=== PATIENT | male | born 1945 | race Two or more races ===

== ENCOUNTER 2018-05-05 18:42 | Emergency (ER) | payer OTHER ==
[~2018-05-05] VITALS: Ht 170.2 cm; Wt 89.8 kg
--- OUTSIDE RECORDS SUMMARY | 2018-05-05 18:46 | XMS REPORT | Continuity of Care Document ---
Author Author [facility] Interface Address Unknown Phone Unavailable Problems Problem Status Onset Date Classification Date Reported Comments Source GENERALIZED WEAKNESS Active 10/04/2017 [facility] GENERAL PAIN Active 10/04/2017 [facility] Angiodysplasia of colon with hemorrhage 07/30/2017 10/29/2017 [facility] Nonrheumatic aortic stenosis 07/29/2017 10/13/2017 [facility] GI BLEED Active 07/17/2017 [facility] ASD, Q21.1 Active 06/11/2017 [facility] CCL/LHC W/ POSS/DX: SEVERE , CLAUDICAT Active 06/10/2017 [facility] SEVERE , CLAUDICATION, PRE OP---1 Active 06/10/2017 [facility] UNK Active 04/21/2015 [facility] Hemorrhage of anus and rectum 10/29/2017 [facility] Supraventricular tachycardia 10/29/2017 [facility] Type 2 diabetes mellitus without complications 10/29/2017 [facility] Acute posthemorrhagic anemia 10/29/2017 [facility] Essential hypertension 10/29/2017 [facility] Atherosclerotic heart disease of [place] coronary artery without angina pectoris 10/29/2017 [facility] Diverticulosis of intestine, part unspecified, without perforation or abscess without bleeding 10/29/2017 [facility] Benign neoplasm of cecum 10/29/2017 [facility] Residual hemorrhoidal skin tags 10/29/2017 [facility] Presence of cardiac pacemaker 10/29/2017 [facility] Hyperlipidemia, unspecified 10/29/2017 [facility] Presence of prosthetic heart valve 10/29/2017 [facility] Aortic valve disease Resolved Problem 10/29/2017 [facility] Aortic stenosis Active Problem 10/29/2017 [facility] Coronary artery disease Resolved Problem 10/29/2017 [facility] Diabetes Resolved Problem 10/29/2017 [facility] Hypertension, essential Active Problem 10/29/2017 [facility] Hypertension Resolved Problem 10/29/2017 [facility] DM , type 2(<span ID="[id number]</span>) Active Problem 10/29/2017 [facility] Weakness 10/13/2017 [facility] Encounter for immunization 10/13/2017 [facility] Acute respiratory failure with hypoxia 10/13/2017 [facility] Acute kidney failure, unspecified 10/13/2017 [facility] Unspecified atrial flutter 10/13/2017 [facility] Type 2 diabetes mellitus with hyperglycemia 10/13/2017 [facility] Fluid overload, unspecified 10/13/2017 [facility] Thrombocytopenia, unspecified 10/13/2017 [facility] Atrioventricular block, second degree 10/13/2017 [facility] Ileus, unspecified 10/13/2017 [facility] Other postprocedural complications and disorders of digestive system 10/13/2017 [facility] use of oral hypoglycemic drugs 10/13/2017 [facility] Atherosclerotic heart disease of [place] coronary artery with other forms of angina pectoris 10/13/2017 [facility] Coronary atherosclerosis due to calcified coronary lesion 10/13/2017 [facility] Bradycardia, unspecified 10/13/2017 [facility] Abdominal distension 10/13/2017 [facility] NONRHEUMATIC AORTIC VALVE DISORDER, UNSP Active [facility] HEMORRHAGE OF ANUS AND RECTUM Active [facility] WEAKNESS Active [facility] Medications Medication Details Route Status Patient Instructions Ordering Provider Order Date Source cefTRIAXone 2 g injection 2 gm, IV, Q24H, X 6 week, # 40 box, 0 Refill(s) Active 10/10/2017 [facility] Aspirin 81 MG Enteric Coated Tablet 81 mg=1 tab, PO, Daily, # 90 tab, 3 Refill(s) Active 10/10/2017 [facility] atorvastatin 80 mg oral tablet 80 mg=1 tab, PO, Bedtime, # 90 tab, 3 Refill(s) Active 10/10/2017 [facility] clopidogrel 75 mg oral tablet 75 mg=1 tab, PO, Daily, # 90 tab, 3 Refill(s) Active 10/10/2017 [facility] Docusate Sodium 50 MG / sennosides, ALF 8.6 MG Oral Tablet 1 tab, PO, Daily, X 14 day, # 14 tab, 10 Refill(s) Active 10/10/2017 [facility] ferrous sulfate 325 mg oral enteric coated tablet 325 mg=1 tab, PO, Daily, # 90 tab, 2 Refill(s) Active 10/10/2017 [facility] losartan 50 mg oral tablet 100 mg=2 tab, PO, Daily, # 180 tab, 2 Refill(s) Active 10/10/2017 [facility] dofetilide 500 mcg oral capsule 500 microgram=1 cap, PO, Q12H, # 120 cap, 0 Refill(s) Active 10/10/2017 [facility] Saline Flush 0.9% 10 mL, Route: IVP, Drug Form: INJ, Dosing Weight 87.727, kg, Q8H, Start date: 10/10/17 16:00:00 CDT, Duration: 30 day, Stop date: 11/09/17 8:00:00 CDTNotes: (Same as: BD Posiflush) Inactive 10/10/2017 [facility] Lidocaine Hydrochloride 10 MG/ML Injectable Solution 50 mg, 5 mL, Route: INTRADERM, Drug Form: INJ, Dosing Weight 87.727, kg, ONCALL, Start date: 10/10/17 13:00:00 CDT, Duration: 30 day, Stop date: 11/09/17 12:59:00 CDTNotes: (Same as: Xylocaine) Inactive 10/10/2017 [facility] Saline Flush 0.9% 10 mL, Route: IVP, Drug Form: INJ, Dosing Weight 87.727, kg, PRN, PRN Line Flush, Start date: 10/10/17 12:37:00 CDT, Duration: 30 day, Stop date: 11/09/17 12:36:00 CDTNotes: (Same as: BD Posiflush) Inactive 10/10/2017 [facility] Potassium Chloride 40 mEq, 2 tab, Route: PO, Drug form: ERTAB, BID, Dosing Weight 87.727, kg, Priority: STAT, Start date: 10/10/17 10:59:00 CDT, Duration: 1 day, Stop date: 10/11/17 9:00:00 CDTNotes: (Same as: K-Dur 20) "Do Not Crush" For patients unable to swallow tablet, dissolve in one half glass of water. Allow about 2 minutes for the tablets to disintegrate. Stir before giving to prepare slurry and administer. Please exclude Patients with feeding tube less than 14 Hungarian (Dobhoff, J-tube etc) and pediatric and patients. With food and full glass of water Inactive 10/10/2017 [facility] Calcium Gluconate 3 gm, 30 mL, Route: IVPB, PRN, Dosing Weight 87.727, kg, PRN Abnormal Lab Result, For NON-ICU Patients Only., Start date: 10/10/17 9:15:00 CDT, Duration: 30 day, Stop date: 11/09/17 9:14:00 CDTNotes: WASTE: F/P - Sink; E - Municipal Trash Bin Inactive 10/10/2017 [facility] Magnesium Oxide 800 mg, 2 tab, Route: PO, Drug form: TAB, PRN, Dosing Weight 87.727, kg, PRN Abnormal Lab Result, For NON-ICU Patients Only., Start date: 10/10/17 9:15:00 CDT, Duration: 30 day, Stop date: 11/09/17 9 :14:00 CDTNotes: (Same as: Mag-Ox 400) Magnesium oxide [id number] elemental magnesium Dose=____mg magnesium oxide (___mg elemental magnesium) Inactive 10/10/2017 [facility] Magnesium Sulfate 1 gm, 100 mL, Route: IVPB, Drug form: INJ, PRN, Dosing Weight 87.727, kg, PRN Abnormal Lab Result, For NON-ICU Patients Only., Start date: 10/10/17 9:15:00 CDT, Duration: 30 day, Stop date: 11/09/17 9:14:00 CDTNotes: WASTE: F/P - Sink; E - Municipal Trash Bin Inactive 10/10/2017 [facility] sodium phosphate 30 mmol, 10 mL, Route: IVPB, PRN, Dosing Weight 87.727, kg, PRN Abnormal Lab Result, For NON-ICU Patients Only., Start date: 10/10/17 9:15:00 CDT, Duration: 30 day, Stop date: 11/09/17 9:14:00 CDT Inactive 10/10/2017 [facility] potassium phosphate-sodium phosphate 250 mg-280 mg-160 mg oral powder for reconstitution 2 pkt, Route: PO, Drug Form: PDR/REC, Dosing Weight 87.727, kg, PRN, PRN Abnormal Lab Result, For NON-ICU Patients Only, Start date: 10/10/17 9:15:00 CDT, Duration: 30 day, Stop date: 11/09/17 9:14:00 CDTNotes: (Same as: Phos-NaK) Each 1.5 gm pkt has 250mg phosphorous. Mix w/2.5oz water and stir. Inactive 10/10/2017 [facility] potassium phosphate 15 mmol, 5 mL, Route: IVPB, PRN, Dosing Weight 87.727, kg, PRN Abnormal Lab Result, For NON-ICU Patients Only., Start date: 10/10/17 9:15:00 CDT, Duration: 30 day, Stop date: 11/09/17 9:14:00 CDTNotes: (Same as: K Phosphate.) 1 mMol phoshate has 1.47 mEq potassium Infuse over 4 hours Inactive 10/10/2017 [facility] Potassium Chloride 10 mEq, 50 mL, Route: IVPB, Drug form: INJ, PRN, Dosing Weight 87.727, kg, PRN Abnormal Lab Result, For NON-ICU Patients Only, Start date: 10/10/17 9:15:00 CDT, Duration: 30 day, Stop date: 11/09/17 9:14:00 CDTNotes: (Same as: KCL) Infuse over 2 hours. Inactive 10/10/2017 [facility] Hydrochlorothiazide 25 MG / Losartan Potassium 100 MG Oral Tablet 1 tab, Route: PO, Drug Form: TAB, Dosing Weight 87.727, kg, Daily, Start date: 10/10/17 9:00:00 CDT, Duration: 30 day, Stop date: 11/08/17 9:00:00 CDT Inactive 10/10/2017 [facility] Cozaar 100 mg, 2 tab, Route: PO, Drug form: TAB, Daily, Start date: 10/10/17 9:00:00 CDT, Duration: 30 day, Stop date: 11/08/17 9:00:00 CDTNotes: (Same as: Cozaar) Inactive 10/10/2017 [facility] hydrochlorothiazide 25 mg oral tablet 25 mg, 1 tab, Route: PO, Drug form: TAB, Daily, Start date: 10/10/17 9:00:00 CDT, Duration: 30 day, Stop date: 11/08/17 9:00:00 CDTNotes: (Same as: Hydrodiuril) With food. Inactive 10/10/2017 [facility] Elemental Iron 25 mg, Route: PO, Drug form: TAB, Daily, Dosing Weight 87.727, kg, Start date: 10/10/17 9:00:00 CDT, Duration: 30 day, Stop date: 11/08/17 9:00:00 CDT No Longer Active 10/10/2017 [facility] NIFEdipine 30 mg oral tablet, extended release 30 mg, 1 tab, Route: PO, Drug form: ERTAB, Daily, Dosing Weight 87.727, kg, Start date: 10/10/17 9:00:00 CDT, Duration: 30 day, Stop date: 11/08/17 9:00:00 CDTNotes: (Same as: Adalat CC, Procardia XL) Give on empty stomach. Take 1 hour before or 2 hours after meal; "Avoid grapefruit and grapefruit juice". Do not crush Inactive 10/10/2017 [facility] ferrous sulfate 325 mg, 1 tab, Route: PO, Drug form: ECTAB, Daily, Dosing Weight 87.727, kg, Start date: 10/10/17 9:00:00 CDT, Duration: 30 day, Stop date: 11/08/17 9:00:00 CDTNotes: Give with food. "Do Not Crush" Inactive 10/10/2017 [facility] Hydralazine 50 mg, 1 tab, Route: PO, Drug form: TAB, Q8H, Dosing Weight 87.727, kg, Start date: 10/10/17 8:00:00 CDT, Duration: 30 day, Stop date: 11/09/17 0:00:00 CDTNotes: (Same as: Apresoline) May interfere w/enteral feedings Take With Food Inactive 10/10/2017 [facility] Hydralazine 20 mg, 1 mL, Route: IVP, Drug form: INJ, Q4H, Dosing Weight 87.727, kg, PRN See Nurse's Notes, Start date: 10/10/17 7:55:00 CDT, Duration: 30 day, Stop date: 11/09/17 7:54:00 CDT, SBP >160Notes: (Same as: Apresoline) Push over 5 minutes Inactive 10/10/2017 [facility] NIFEdipine 30 mg oral tablet, extended release 30 mg, 1 tab, Route: PO, Drug form: ERTAB, ONCE, Dosing Weight 87.727, kg, Start date: 10/10/17 7:53:00 CDT, Stop date: 10/10/17 7:53:00 CDTNotes: (Same as: Adalat CC, Procardia XL) Give on empty stomach. Take 1 hour before or 2 hours after meal; "Avoid grapefruit and grapefruit juice". Do not crush Inactive 10/10/2017 [facility] NIFEdipine 60 mg oral tablet, extended release 60 mg, 1 tab, Route: PO, Drug form: ERTAB, ONCE, Dosing Weight 87.727, kg, Priority: STAT, Start date: 10/10/17 6:15:00 CDT, Stop date: 10/10/17 6:15:00 CDT, ..Notes: (Same as: Adalat CC, Procardia XL) Give on empty stomach. Take 1 hour before or 2 hours after meal; "Avoid grapefruit and grapefruit juice". Do not crush Inactive 10/10/2017 [facility] Hydralazine Hydrochloride 25 MG Oral Tablet 25 mg, 1 tab, Route: PO, Drug form: TAB, ONCE, Dosing Weight 87.727, kg, Start date: 10/10/17 5:08:00 CDT, Stop date: 10/10/17 5:08:00 CDTNotes: (Same as: Apresoline) May interfere w/enteral feedings Take With Food. Inactive 10/10/2017 [facility] Saline Flush 0.9% 10 mL, Route: IVP, Drug Form: INJ, Dosing Weight 87.727, kg, Q8H, Start date: 10/10/17 0:00:00 CDT, Duration: 30 day, Stop date: 11/08/17 16:00:00 CDTNotes: (Same as: BD Posiflush) Inactive 10/10/2017 [facility] Hydralazine 25 mg, 1 tab, Route: PO, Drug form: TAB, Q6H, Dosing Weight 87.727, kg, Priority: NOW, Start date: 10/09/17 18:19:00 CDT, Duration: 30 day, Stop date: 11/08/17 18:00:00 CDTNotes: (Same as: Apresoline) May interfere w/enteral feedings Take With Food. No Longer Active 10/09/2017 [facility] Lidocaine Hydrochloride 10 MG/ML Injectable Solution 50 mg, 5 mL, Route: INTRADERM, Drug Form: INJ, Dosing Weight 87.727, kg, ONCALL, Start date: 10/09/17 17:00:00 CDT, Duration: 30 day, Stop date: 11/08/17 16:59:00 CDTNotes: (Same as: Xylocaine) No Longer Active 10/09/2017 [facility] Saline Flush 0.9% 10 mL, Route: IVP, Drug Form: INJ, Dosing Weight 87.727, kg, PRN, PRN Line Flush, Start date: 10/09/17 16:32:00 CDT, Duration: 30 day, Stop date: 11/08/17 16:31:00 CDTNotes: (Same as: BD Posiflush) No Longer Active 10/09/2017 [facility] Docusate Sodium 50 MG / sennosides, ALF 8.6 MG Oral Tablet 1 tab, Route: PO, Drug Form: TAB, Dosing Weight 87.727, kg, Daily, Start date: 10/09/17 14:30:00 CDT, Duration: 30 day, Stop date: 11/08/17 9:00:00 CDTNotes: (Same as Senokot-S) Equiv. to Iman-Colace. No Longer Active 10/09/2017 [facility] Amlodipine 10 mg, 1 tab, Route: PO, Drug form: TAB, Daily, Dosing Weight 87.727, kg, Start date: 10/09/17 9:00:00 CDT, Duration: 30 day, Stop date: 11/07/17 9:00:00 CDTNotes: (Same as: Norvasc) No Longer Active 10/09/2017 [facility] Ceftriaxone 2 gm, Route: IVPB, [id number], Dosing Weight 87.727, kg, Priority: STAT, Start date: 10/09/17 8:55:00 CDT, Duration: 7 day, Stop date: 10/15/17 8:55:00 CDT, ABX Indication: BacteremiaNotes: (Same As: Rocep hin). Use with 100 mL NS and infuse over 30 min MEDICATION WASTE Product Size: 2000 mg Product Wasted: __0_ mg No Longer Active 10/09/2017 [facility] Vancomycin 1.75 gm, Route: IVPB, [id number], Dosing Weight 87.727, kg, Start date: 10/08/17 18:00:00 CDT, Duration: 30 day, Stop date: 11/07/17 6:00:00 CDT, ABX Indication: Endocarditis/Endovascular InfectionNotes: TIME CRITICAL MEDICATION (Same As: Vancocin) Infusion rate 2001 mg: infuse over 2.5 hours For adult patients only: Round to nearest 250 mg per Medical Staff approval MEDICATION WASTE Product Size: 1000 mg Product Wasted: _250__ mg No Longer Active 10/08/2017 [facility] Lovenox 40 mg, 0.4 mL, Route: SUB-Q, Drug form: INJ, [id number], Dosing Weight 87.727, kg, Start date: 10/08/17 16:00:00 CDT, Stop date: 11/06/17 21:00:00 CDTNotes: (Same as: Lovenox) No Longer Active 10/08/2017 [facility] Amlodipine 5 mg, 1 tab, Route: PO, Drug form: TAB, ONCE, Dosing Weight 87.727, kg, Start date: 10/08/17 14:37:00 CDT, Stop date: 10/08/17 14:37:00 CDTNotes: (Same as: Norvasc) Inactive 10/08/2017 [facility] Venofer 200 mg, Route: IVPB, Drug form: INJ, Daily, Dosing Weight 87.727, kg, Start date: 10/08/17 9:00:00 CDT, Duration: 5 doses or times, Stop date: 10/12/17 9:00:00 CDT No Longer Active 10/08/2017 [facility] Amlodipine 5 mg, 1 tab, Route: PO, Drug form: TAB, Daily, Dosing Weight 87.727, kg, Priority: STAT, Start date: 10/07/17 14:01:00 CDT, Duration: 30 day, Stop date: 11/06/17 9:00:00 CDTNotes: (Same as: Norvasc) No Longer Active 10/07/2017 [facility] Sodium ferric gluconate complex 125 mg, 10 mL, Route: IVPB, Q24H, Dosing Weight 87.727, kg, Start date: 10/07/17 12:00:00 CDT, Duration: 8 doses or times, Stop date: 10/14/17 12:00:00 CDTNotes: (sodium ferric gluconate complex (elemental iron) 62.5 mg/5 ml INJ) "Limited stability. Use immediately after admixture" (Same as: Ferrlecit) MEDICATION WASTE Product Size: 62.5 mg Product Wasted: 0___ mg No Longer Active 10/07/2017 [facility] potassium chloride 20 mEq oral tablet, extended release 40 mEq, 2 tab, Route: PO, Drug form: ERTAB, BID, Dosing Weight 87.727, kg, Start date: 10/07/17 10:30:00 CDT, Duration: 2 doses or times, Stop date: 10/07/17 17:00:00 CDTNotes: (Same as: K-Dur 20) "Do Not Crush" For patients unable to swallow tablet, dissolve in one half glass of water. Allow about 2 minutes for the tablets to disintegrate. Stir before giving to prepare slurry and administer. Please exclude Patients with feeding tube less than 14 Hungarian (Dobhoff, J-tube etc) and pediatric and patients. With food and full glass of water Inactive 10/07/2017 [facility] Hydrochlorothiazide 25 mg, Route: PO, Drug form: TAB, Daily, Dosing Weight 87.727, kg, Start date: 10/07/17 9:57:00 CDT, Duration: 30 day, Stop date: 11/06/17 9:00:00 CDT Inactive 10/07/2017 [facility] vancomycin 1.25 gm, 250 mL, Route: IVPB, Drug form: INJ, [id number], Start date: 10/07/17 8:30:00 CDT, Stop date: 11/05/17 20:30:00 CDT, ABX Indication: Endocarditis/Endovascular InfectionNotes: TIME CRITICAL MEDICAT ION Same as: Vancocin-NS (premixed) Infusion rate 2001 mg: infuse over 2.5 hours No Longer Active 10/07/2017 [facility] Gentamicin 80 mg, 2 mL, Route: IVPB, ONCE, Dosing Weight 87.727, kg, Start date: 10/06/17 22:50:00 CDT, Stop date: 10/06/17 22:50:00 CDTNotes: TIME CRITICAL MEDICATION (Same as Garamycin) For adult patients only : Round to nearest 10 mg per Medical Staff approval No Longer Active 10/07/2017 [facility] cefepime 1 gm, Route: IVPB, [id number], Dosing Weight 87.727, kg, (CrCl >/=50 ml/min), Start date: 10/06/17 20:23:00 CDT, Duration: 7 day, Stop date: 10/13/17 12:23:00 CDT, ABX Indication: Endocarditis/Endovascular InfectionNotes: (Same As: Maxipime) MEDICATION WASTE Product Size: 1000 mg Product Wasted: ___ mg No Longer Active 10/07/2017 [facility] Vancomycin 1.75 gm, Route: IV, ONCE, Dosing Weight 87.727, kg, Start date: 10/06/17 20:13:00 CDT, Stop date: 10/06/17 20:13:00 CDT, Pediatric Dosing, ABX Indication: Endocarditis/Endovascular InfectionNotes: TIME CRITICAL MEDICATION (Same As: Vancocin) Infusion rate 2001 mg: infuse over 2.5 hours For adult patients only: Round to nearest 250 mg per Medical Staff approval MEDICATION WASTE Product Size: 1000 mg Product Wasted: ___ mg Inactive 10/07/2017 [facility] atorvastatin 80 mg, 1 tab, Route: PO, Drug form: TAB, Bedtime, Dosing Weight 87.273, kg, Start date: 10/05/17 21:00:00 CDT, Duration: 30 day, Stop date: 11/03/17 21:00:00 CDTNotes: Same as Lipitor No Longer Active 10/06/2017 [facility] cetirizine hydrochloride 10 MG Oral Tablet [Zyrtec] 10 mg=1 tab, PO, Daily, 0 Refill(s) Active 10/05/2017 [facility] pantoprazole 40 mg oral enteric coated tablet 40 mg=1 tab, PO, Daily, 0 Refill(s) Active 10/05/2017 [facility] Metformin hydrochloride 500 MG Oral Tablet 1,000 mg=2 tab, PO, BID, 0 Refill(s) Active 10/05/2017 [facility] Hydrochlorothiazide 12.5 MG / Losartan Potassium 100 MG Oral Tablet 1 tab, PO, Daily, 0 Refill(s) No Longer Active 10/05/2017 [facility] Fish Oil 1200 mg oral capsule 1,200 mg=1 cap, PO, TID, 0 Refill(s) Active 10/05/2017 [facility] Vitamin D3 2000 intl units oral capsule 2,000 IntlUnit=1 cap, PO, Daily, # 100 cap, 3 Refill(s) Active 10/05/2017 [facility] Advair Diskus 250 mcg-50 mcg inhalation powder 1 puff, INHALATION, BID, 0 Refill(s) Active 10/05/2017 [facility] montelukast 10 MG Oral Tablet [Singulair] 10 mg=1 tab, PO, Daily, 0 Refill(s) Active 10/05/2017 [facility] amLODIPine 5 mg oral tablet 5 mg=1 tab, PO, Daily, 0 Refill(s) No Longer Active 10/05/2017 [facility] tramadol hydrochloride 50 MG Oral Tablet 100 mg, 2 tab, Route: PO, Drug form: TAB, Q6H, Dosing Weight 87.727, kg, PRN Pain Score 4-6, Start date: 10/05/17 9:03:00 CDT, Duration: 30 day, Stop date: 11/04/17 9:02:00 CDTNotes: Not to exceed 400mg/day. (Same As: Ultram) No Longer Active 10/05/2017 [facility] pneumococcal capsular polysaccharide type 1 vaccine / pneumococcal capsular polysaccharide type 10A vaccine / pneumococcal capsular polysaccharide type 11A vaccine / pneumococcal capsular polysaccharide type 12F vaccine / pneumococcal capsular polysacchar 0.5 mL, Route: IM, Drug Form: INJ, ONCALL, Start date: 10/05/17 9:00:00 CDT, Duration: 1 doses or timesNotes: (Same as: Pneumovax 23) Refrigerate No Longer Active 10/05/2017 [facility] Docusate Sodium 100 MG Oral Capsule 100 mg, 1 cap, Route: PO, Drug form: CAP, BID, Dosing Weight 87.273, kg, Start date: 10/05/17 9:00:00 CDT, Duration: 30 day, Stop date: 11/03/17 17:00:00 CDTNotes: (Same as: Colace) (Do Not Crush) No Longer Active 10/05/2017 [facility] clopidogrel 75 mg, 1 tab, Route: PO, Drug form: TAB, Daily, Dosing Weight 87.273, kg, Start date: 10/05/17 9:00:00 CDT, Duration: 30 day, Stop date: 11/03/17 9:00:00 CDTNotes: (Same As: Plavix) No Longer Active 10/05/2017 [facility] Aspirin 81 MG Enteric Coated Tablet 81 mg, 1 tab, Route: PO, Drug form: ECTAB, Daily, Dosing Weight 87.273, kg, Start date: 10/05/17 9:00:00 CDT, Duration: 30 day, Stop date: 11/03/17 9:00:00 CDTNotes: Do not crush or chew. (Same As: Ecotrin) No Longer Active 10/05/2017 [facility] Losartan 100 mg, 2 tab, Route: PO, Drug form: TAB, Daily, Dosing Weight 87.273, kg, Start date: 10/05/17 9:00:00 CDT, Duration: 30 day, Stop date: 11/03/17 9:00:00 CDTNotes: (Same as: Cozaar) No Longer Active 10/05/2017 [facility] dofetilide 500 microgram, 1 cap, Route: PO, Drug form: CAP, Q12H, Start date: 10/05/17 9:00:00 CDT, Duration: 30 day, Stop date: 11/03/17 21:00:00 CDTNotes: (Same as: Tikosyn) No Longer Active 10/05/2017 [facility] Saline Flush 0.9% 10 ml, Route: IVP, Drug Form: INJ, Dosing Weight 87.273, kg, Q12H, Start date: 10/05/17 9:00:00 CDT, Duration: 30 day, Stop date: 11/03/17 21:00:00 CDTNotes: Same as: BD Posiflush Sterile No Longer Active 10/05/2017 [facility] dofetilide 500 mcg oral capsule dofetilide 500 mcg oral capsule, 500 microgram, Drug form: CAP, Route: PO, Q12H, 10/05/17 9:00:00 CDT, Duration: 30 day, Stop date: 11/03/17 21:00:00 CDT Inactive 10/05/2017 [facility] Acetaminophen 650 mg, Route: PO, ONCE, Dosing Weight 87.273, kg, Start date: 10/05/17 3:59:00 CDT, Stop date: 10/05/17 3:59:00 CDT Inactive 10/05/2017 [facility] Simethicone 80 mg, 1 tab, Route: PO, Drug form: CHEWTAB, Q6H, Dosing Weight 87.273, kg, PRN Gas, Start date: 10/05/17 3:28:00 CDT, Duration: 2 doses or times, Stop date: Limited # of timesNotes: (Same as: [place]o n) No Longer Active 10/05/2017 [facility] Bisacodyl 10 mg, 1 supp, Route: WA, Drug form: SUPP, Daily, Dosing Weight 87.273, kg, PRN Constipation, Start date: 10/05/17 3:28:00 CDT, Duration: 30 day, Stop date: 11/04/17 3:27:00 CDTNotes: (Same As: Dulcolax, Bisco-Lax) No Longer Active 10/05/2017 [facility] Ondansetron 4 mg, 2 mL, Route: IVP, Drug form: INJ, Q8H, Dosing Weight 87.273, kg, PRN Nausea & Vomiting, Start date: 10/05/17 3:28:00 CDT, Duration: 30 day, Stop date: 11/04/17 3:27:00 CDTNotes: (Same as: Zofran) MEDICATION WASTE Product Size: 4 mg Product Wasted: ___ mg No Longer Active 10/05/2017 [facility] Diphenhydramine 25 mg, 1 cap, Route: PO, Drug form: CAP, Q6H, Dosing Weight 87.273, kg, PRN Itching, Start date: 10/05/17 3:28:00 CDT, Duration: 30 day, Stop date: 11/04/17 3:27:00 CDTNotes: (Same as: Benadryl) No Longer Active 10/05/2017 [facility] Acetaminophen 650 mg, 2 tab, Route: PO, Drug form: TAB, Q4H, Dosing Weight 87.273, kg, PRN For Temp > 100.4 F, Start date: 10/05/17 3:28:00 CDT, Duration: 30 day, Stop date: 11/04/17 3:27:00 CDTNotes: Do not exceed 4 gm/day. (Same as: Tylenol) No Longer Active 10/05/2017 [facility] Insulin Lispro 4 unit, 0.04 mL, Route: SUB-Q, Drug form: SOLN, TID-Before Meals, Dosing Weight 87.273, kg, PRN Blood Glucose Results, Start date: 10/05/17 3:28:00 CDT, Duration: 30 day, Stop date: 11/04/17 3:27:00 CDTNotes: (Same as: Humalog ) Roll in palms of hands gently; Do not shake `vigorously. "Single Patient Use Only " WASTE: F/P - Black; E - Municipal Trash Bin Stable for 28 days at room temperature. Expires in days from Date No Longer Active 10/05/2017 [facility] Dextrose 50% Syringe 25 gm, 50 mL, Route: IVP, Drug Form: INJ, Dosing Weight 87.273, kg, PRN, PRN Blood Glucose Results, Start date: 10/05/17 3:28:00 CDT, Duration: 30 day, Stop date: 11/04/17 3:27:00 CDT No Longer Active 10/05/2017 [facility] Glucagon 1 mg, Route: IM, Drug form: PDR/INJ, PRN, Dosing Weight 87.273, kg, PRN Blood Glucose Results, Start date: 10/05/17 3:28:00 CDT, Duration: 30 day, Stop date: 11/04/17 3:27:00 CDT No Longer Active 10/05/2017 [facility] Hydrochlorothiazide 12.5 mg, PO, Daily, 0 Refill(s) Inactive 10/05/2017 [facility] Saline Flush 0.9% 10 ml, Route: IVP, Drug Form: INJ, Dosing Weight 87.273, kg, PRN, PRN Line Flush, Start date: 10/05/17 3:24:00 CDT, Duration: 30 day, Stop date: 11/04/17 3:23:00 CDTNotes: Same as: BD Posiflush Sterile No Longer Active 10/05/2017 [facility] Lactated Ringers IV 1,000 mL 1,000 mL, Rate: 125 ml/hr, Infuse over: 8 hr, Route: IV, Dosing Weight 87.273 kg, Total Volume: 1,000, Start date: 10/05/17 3:24:00 CDT, Duration: 30 day, Stop date: 11/04/17 3:23:00 CDT, 2.05, m2 No Longer Active 10/05/2017 [facility] Acetaminophen 650 mg, 2 tab, Route: PO, Drug form: TAB, ONCE, Dosing Weight 87.273, kg, Priority: STAT, Start date: 10/04/17 19:53:00 CDT, Stop date: 10/04/17 19:53:00 CDTNotes: Do not exceed 4 gm/day. (Same as: Tylenol) Inactive 10/05/2017 [facility] losartan 50 mg oral tablet 100 mg=2 tab, PO, Daily, # 60 tab, 0 Refill(s), Pharmacy: [facility] [id number] No Longer Active 07/23/2017 [facility] clopidogrel 75 mg oral tablet 75 mg=1 tab, PO, Daily, # 30 tab, 0 Refill(s), Pharmacy: [facility] [id number] No Longer Active 07/23/2017 [facility] atorvastatin 80 mg oral tablet 80 mg=1 tab, PO, Bedtime, # 30 tab, 0 Refill(s), Pharmacy: [facility] [id number] No Longer Active 07/23/2017 [facility] dofetilide 500 mcg oral capsule 500 microgram=1 cap, PO, Q12H, # 30 cap, 0 Refill(s), Pharmacy: [facility] [id number] No Longer Active 07/23/2017 [facility] Aspirin 81 MG Enteric Coated Tablet 81 mg=1 tab, PO, Daily, # 32 tab, 0 Refill(s), Pharmacy: [facility] [id number] No Longer Active 07/23/2017 [facility] Insulin Lispro 1 unit, 0.01 mL, Route: SUB-Q, Drug form: SOLN, Bedtime, Dosing Weight 84.545, kg, PRN Blood Glucose Results, Start date: 07/22/17 19:58:00 NETWORK FIELD ENGINEER, Duration: 30 day, Stop date: 08/21/17 19:57:00 CDTNotes: (Same as: Humalog ) Roll in palms of hands gently; Do not shake `vigorously. "Single Patient Use Only " WASTE: F/P - Black; E - Municipal Trash Bin Stable for 28 days at room temperature. Expires in days from Date No Longer Active 07/23/2017 [facility] heparin sodium, porcine 2500 UNT/ML Injectable Solution 5,000 unit, 1 mL, Route: SUB-Q, Drug form: INJ, Q8H, Dosing Weight 84.545, kg, Start date: 07/22/17 16:00:00 NETWORK FIELD ENGINEER, Stop date: 08/21/17 8:00:00 CDTNotes: porcine heparin No Longer Active 07/22/2017 [facility] Plavix 75 mg, 1 tab, Route: PO, Drug form: TAB, Daily, Dosing Weight 84.545, kg, Start date: 07/22/17 9:00:00 NETWORK FIELD ENGINEER, Duration: 30 day, Stop date: 08/20/17 9:00:00 CDTNotes: (Same As: Plavix) No Longer Active 07/22/2017 [facility] Hemorrhoidal Cooling Gel 1 appl, Route: WA, QID, Start date: 07/21/17 17:00:00 NETWORK FIELD ENGINEER, Duration: 30 day, Stop date: 08/20/17 13:00:00 CDT Inactive 07/21/2017 [facility] hydrocortisone 2.5% rectal cream with applicator 1 appl, Route: WA, QID, Drug form: CRM/A, Start date: 07/21/17 14:00:00 NETWORK FIELD ENGINEER, Duration: 30 day, Stop date: 08/20/17 13:00:00 CDTNotes: (Same as: Anusol-HC, Proctosol- HC) No Longer Active 07/21/2017 [facility] Phenylephrine 0.0025 MG/MG / Witch Alia 0.5 MG/MG Rectal Gel [Preparation H Cooling Gel] 1 appl, Route: WA, QID, Start date: 07/21/17 13:00:00 NETWORK FIELD ENGINEER, Duration: 30 day, Stop date: 08/20/17 9:00:00 CDT Inactive 07/21/2017 [facility] Bisacodyl 5 mg, 1 tab, Route: PO, Drug form: ECTAB, ONCE, Dosing Weight 84.545, kg, Start date: 07/21/17 5:00:00 NETWORK FIELD ENGINEER, Stop date: 07/21/17 5:00:00 CSTNotes: (Same As: Dulcolax, Correctol) (Do Not Crush) "Do Not Crush" Inactive 07/21/2017 [facility] pantoprazole 80 mg + Sodium Chloride 0.9% IV 100 mL 100 mL, Rate: 10 ml/hr, Infuse over: 10 hr, Route: IVPB, Dosing Weight 84.545 kg, Total Volume: 100, Infuse at 8 mg / hr for 72 hours for GI bleeding, Start date: 07/20/17 22:22:00 NETWORK FIELD ENGINEER, Stop date: 07/23/17 22:21:00 NETWORK FIELD ENGINEER, 2.02, m2 No Longer Active 07/21/2017 [facility] Golytely 4,000 ml, Route: PO, Drug Form: PDR/REC, Dosing Weight 84.545, kg, ONCE, Start date: 07/20/17 17:00:00 NETWORK FIELD ENGINEER, Stop date: 07/20/17 17:00:00 CSTNotes: (polyethylene glycol electrolyte solution 4 Liter bottle) (Same as: Golytely, Colyte) Inactive 07/20/2017 [facility] Bisacodyl 5 mg, 1 tab, Route: PO, Drug form: ECTAB, ONCE, Dosing Weight 84.545, kg, Priority: NOW, Start date: 07/20/17 13:01:00 NETWORK FIELD ENGINEER, Stop date: 07/20/17 13:01:00 CSTNotes: (Same As: Dulcolax, Correctol) (Do Not Crush) "Do Not Crush" Inactive 07/20/2017 [facility] Docusate Sodium 50 MG Oral Capsule 50 mg, 1 cap, Route: PO, Drug form: CAP, ONCE, Dosing Weight 84.545, kg, Priority: NOW, Start date: 07/20/17 12:59:00 NETWORK FIELD ENGINEER, Stop date: 07/20/17 12:59:00 CSTNotes: (Same as: Colace) (Do Not Crush) Inactive 07/20/2017 [facility] Lisinopril 5 mg, Route: PO, Drug form: TAB, Daily, Dosing Weight 84.545, kg, Start date: 07/20/17 12:52:00 NETWORK FIELD ENGINEER, Duration: 30 day, Stop date: 08/19/17 9:00:00 CDT Inactive 07/20/2017 [facility] Potassium Chloride 20 mEq, 1 tab, Route: PO, Drug form: ERTAB, PRN, Dosing Weight 84.545, kg, PRN Abnormal Lab Result, For NON-ICU Patients Only, Start date: 07/20/17 5:43:00 NETWORK FIELD ENGINEER, Duration: 30 day, Stop date: 08/19/17 6:42:00 CDTNotes: (Same as: K-Dur 20) "Do Not Crush" With food and full glass of water No Longer Active 07/20/2017 [facility] potassium phosphate-sodium phosphate 250 mg-280 mg-160 mg oral powder for reconstitution 2 pkt, Route: PO, Drug Form: PDR/REC, Dosing Weight 84.545, kg, PRN, PRN Abnormal Lab Result, For NON-ICU Patients Only, Start date: 07/20/17 5:43:00 NETWORK FIELD ENGINEER, Duration: 30 day, Stop date: 08/19/17 6:42:00 CDTNotes: (Same as: Phos-NaK) Each 1.5 gm pkt has 250mg phosphorous. Mix w/2.5oz water and stir. No Longer Active 07/20/2017 [facility] Magnesium Sulfate 2 gm, 50 mL, Route: IVPB, Drug form: INJ, PRN, Dosing Weight 84.545, kg, PRN Abnormal Lab Result, For NON-ICU Patients Only., Start date: 07/20/17 5:43:00 NETWORK FIELD ENGINEER, Duration: 30 day, Stop date: 08/19/17 6:42:00 CDTNotes: WASTE: F/P - Sink; E - Municipal Trash Bin No Longer Active 07/20/2017 [facility] Calcium Gluconate 3 gm, 30 mL, Route: IVPB, PRN, Dosing Weight 84.545, kg, PRN Abnormal Lab Result, For NON-ICU Patients Only., Start date: 07/20/17 5:43:00 NETWORK FIELD ENGINEER, Duration: 30 day, Stop date: 08/19/17 6:42:00 CDTNotes: WASTE: F/P - Sink; E - Municipal Trash Bin No Longer Active 07/20/2017 [facility] Magnesium Oxide 800 mg, 2 tab, Route: PO, Drug form: TAB, PRN, Dosing Weight 84.545, kg, PRN Abnormal Lab Result, For NON-ICU Patients Only., Start date: 07/20/17 5:43:00 NETWORK FIELD ENGINEER, Duration: 30 day, Stop date: 08/19/17 6 :42:00 CDTNotes: (Same as: Mag-Ox 400) Magnesium oxide [id number] elemental magnesium Dose=____mg magnesium oxide (___mg elemental magnesium) No Longer Active 07/20/2017 [facility] potassium phosphate 15 mmol, 5 mL, Route: IVPB, PRN, Dosing Weight 84.545, kg, PRN Abnormal Lab Result, For NON-ICU Patients Only., Start date: 07/20/17 5:43:00 NETWORK FIELD ENGINEER, Duration: 30 day, Stop date: 08/19/17 6:42:00 CDTNotes: (Same as: K Phosphate.) 1 mMol phoshate has 1.47 mEq potassium Infuse over 4 hours No Longer Active 07/20/2017 [facility] sodium phosphate 30 mmol, 10 mL, Route: IVPB, PRN, Dosing Weight 84.545, kg, PRN Abnormal Lab Result, For NON-ICU Patients Only., Start date: 07/20/17 5:43:00 NETWORK FIELD ENGINEER, Duration: 30 day, Stop date: 08/19/17 6:42:00 CDT No Longer Active 07/20/2017 [facility] dofetilide 500 microgram, 1 cap, Route: PO, Drug form: CAP, Q12H, Dosing Weight 84.545, kg, Start date: 07/19/17 17:00:00 NETWORK FIELD ENGINEER, Stop date: 08/18/17 9:00:00 CDTNotes: (Same as: Tikosyn) Providers should enter the orders via the "Dofetilide Initiation Orders MPP" to ensure compliance with the [employer] program. No Longer Active 07/19/2017 [facility] Sodium Chloride 0.9% (titrate) 250 mL 250 mL, Rate: To prime line and flush remaining blood products., Dosing Weight 84.545, kg, Route: IV, Total Volume: 250, Start Date: 07/19/17 14:02:00 NETWORK FIELD ENGINEER, Duration: 30 day, Stop date: 08/18/17 14:01:00 CDT, Replace Every: 24 hr No Longer Active 07/19/2017 [facility] Losartan 100 mg, 2 tab, Route: PO, Drug form: TAB, Daily, Dosing Weight 84.545, kg, Priority: STAT, Start date: 07/19/17 7:04:00 NETWORK FIELD ENGINEER, Stop date: 08/17/17 9:00:00 CDTNotes: (Same as: Cozaar) No Longer Active 07/19/2017 [facility] atorvastatin 80 mg, 1 tab, Route: PO, Drug form: TAB, Bedtime, Dosing Weight 84.545, kg, Start date: 07/18/17 21:00:00 NETWORK FIELD ENGINEER, Duration: 30 day, Stop date: 08/16/17 21:00:00 CDTNotes: Same as Lipitor No Longer Active 07/19/2017 [facility] Metformin 500 mg, PO, BID, 0 Refill(s) No Longer Active 07/19/2017 [facility] Aspirin 81 mg, 1 tab, Route: PO, Drug form: ECTAB, Daily, Dosing Weight 84.545, kg, Start date: 07/18/17 9:00:00 NETWORK FIELD ENGINEER, Duration: 30 day, Stop date: 08/16/17 9:00:00 CDT No Longer Active 07/18/2017 [facility] Sodium Chloride 0.9% (titrate) 250 mL 250 mL, Rate: To prime line and flush remaining blood products., Dosing Weight 84.545, kg, Route: IV, Total Volume: 250, Priority: Routine, Start Date: 07/18/17 7:38:00 NETWORK FIELD ENGINEER, Duration: 30 day, Stop date: 08/17/17 7:37:00 CDT, Replace Every: 24 hr No Longer Active 07/18/2017 [facility] Insulin Lispro 5 unit, 0.05 mL, Route: SUB-Q, Drug form: SOLN, TID-Before Meals, Dosing Weight 84.545, kg, PRN Blood Glucose Results, Start date: 07/18/17 3:52:00 NETWORK FIELD ENGINEER, Duration: 30 day, Stop date: 08/17/17 3:51:00 CDTNotes: (Same as: Humalog ) Roll in palms of hands gently; Do not shake `vigorously. "Single Patient Use Only " WASTE: F/P - Black; E - Municipal Trash Bin Stable for 28 days at room temperature. Expires in days from Date No Longer Active 07/18/2017 [facility] Dextrose 50% Syringe 25 gm, 50 mL, Route: IVP, Drug Form: INJ, Dosing Weight 84.545, kg, PRN, PRN Blood Glucose Results, Start date: 07/18/17 3:52:00 NETWORK FIELD ENGINEER, Duration: 30 day, Stop date: 08/17/17 4:51:00 CDT No Longer Active 07/18/2017 [facility] Glucagon 1 mg, Route: IM, Drug form: PDR/INJ, PRN, Dosing Weight 84.545, kg, PRN Blood Glucose Results, Start date: 07/18/17 3:52:00 NETWORK FIELD ENGINEER, Duration: 30 day, Stop date: 08/17/17 4:51:00 CDT No Longer Active 07/18/2017 [facility] Sodium Chloride 0.9% (titrate) 250 mL 250 mL, Rate: To prime line and flush remaining blood products., Dosing Weight 84.545, kg, Route: IV, Total Volume: 250, Priority: Routine, Start Date: 07/18/17 3:35:00 NETWORK FIELD ENGINEER, Duration: 30 day, Stop date: 08/17/17 3:34:00 CDT, Replace Every: 24 hr No Longer Active 07/18/2017 [facility] Protonix 80 mg, Route: IVP, Drug form: INJ, ONCE, Dosing Weight 84.545, kg, Priority: STAT, Start date: 07/17/17 21:05:00 NETWORK FIELD ENGINEER, Stop date: 07/17/17 21:05:00 NETWORK FIELD ENGINEER Inactive 07/18/2017 [facility] pantoprazole 80 mg + Sodium Chloride 0.9% IV 100 mL 100 mL, Rate: 10 ml/hr, Infuse over: 10 hr, Route: IVPB, Dosing Weight 84.545 kg, Total Volume: 100, Infuse at 8 mg / hr for 72 hours for GI bleeding, Start date: 07/17/17 21:04:00 NETWORK FIELD ENGINEER, Duration: 72 hr, Stop date: 07/20/17 21:03:00 NETWORK FIELD ENGINEER, 2.02, m2 No Longer Active 07/18/2017 [facility] Furosemide 20 MG Oral Tablet [Lasix] 20 mg=1 tab, PO, Daily, # 7 tab, 0 Refill(s) No Longer Active 07/07/2017 [facility] losartan 50 mg oral tablet 100 mg=2 tab, PO, Daily, # 60 tab, 0 Refill(s) No Longer Active 07/07/2017 [facility] isosorbide mononitrate 30 mg oral tablet, extended release 30 mg=1 tab, PO, Q12H, # 60 tab, 0 Refill(s) No Longer Active 07/07/2017 [facility] Hydrochlorothiazide 25 MG Oral Tablet 25 mg=1 tab, PO, Daily, # 30 tab, 0 Refill(s) No Longer Active 07/07/2017 [facility] Hydralazine Hydrochloride 50 MG Oral Tablet 50 mg=1 tab, PO, Q6H, # 120 tab, 0 Refill(s) No Longer Active 07/07/2017 [facility] Docusate Sodium 100 MG Oral Capsule 100 mg=1 cap, PO, BID, # 60 cap, 0 Refill(s) No Longer Active 07/07/2017 [facility] clopidogrel 75 mg oral tablet 75 mg=1 tab, PO, Daily, # 30 tab, 0 Refill(s) No Longer Active 07/07/2017 [facility] atorvastatin 80 mg oral tablet 80 mg=1 tab, PO, Bedtime, # 30 tab, 0 Refill(s) No Longer Active 07/07/2017 [facility] Ibuprofen 400 MG Oral Tablet 400 mg, 2 tab, Route: PO, Drug form: TAB, Q4H, Dosing Weight 91.364, kg, PRN Pain Score 1-3, Start date: 07/06/17 20:28:00 NETWORK FIELD ENGINEER, Duration: 30 day, Stop date: 08/05/17 20:27:00 CSTNotes: (Same as: Advil) Give with food. No Longer Active 07/07/2017 [facility] Dilaudid 0.2 mg, 0.1 mL, Route: IVP, Drug form: INJ, ONCE, Dosing Weight 91.364, kg, Priority: STAT, Start date: 07/06/17 20:28:00 NETWORK FIELD ENGINEER, Stop date: 07/06/17 20:28:00 CSTNotes: Same as Dilaudid No Longer Active 07/07/2017 [facility] tramadol hydrochloride 50 MG Oral Tablet 50 mg, 1 tab, Route: PO, Drug form: TAB, ONCE, Dosing Weight 91.364, kg, PRN Pain Score 1-3, Start date: 07/06/17 3:09:00 CSTNotes: Not to exceed 400mg/day. (Same As: Ultram) Inactive 07/06/2017 [facility] Vancomycin 1,000 mg, Route: IVPB, Drug form: INJ, Q12H, Dosing Weight 91.364, kg, Time Critical Medication, Start date: 07/05/17 21:00:00 NETWORK FIELD ENGINEER, Duration: 2 day, Stop date: 07/07/17 9:00:00 NETWORK FIELD ENGINEER, ABX Indication: Surgical ProphylaxisNotes: TIME CRITICAL MEDICATION (Same As: Vancocin) Infusion rate 2001 mg: infuse over 2.5 hours For adult patients only: Round to nearest 250 mg per Medical Staff approval MEDICATION WASTE Product Size: 1000 mg Product Wasted: ___ mg No Longer Active 07/06/2017 [facility] Morphine 2 mg, 1 mL, Route: IVP, Drug form: INJ, Q4H, Dosing Weight 91.364, kg, PRN Pain Score 4-6, Start date: 07/05/17 9:51:00 NETWORK FIELD ENGINEER, Duration: 30 day, Stop date: 08/04/17 9:50:00 CSTNotes: (Same as:MORPhine Sulfate) No Longer Active 07/05/2017 [facility] Albuterol 0.833 MG/ML / Ipratropium Echola 0.167 MG/ML Inhalant Solution [DuoNeb] 3 ml, Route: NEB, Drug Form: SOLN, Dosing Weight 91.364, kg, RQ6H, PRN Other -See Comment, Start date: 07/03/17 10:51:00 NETWORK FIELD ENGINEER, Duration: 30 day, Stop date: 08/02/17 10:50:00 CSTNotes: (Same as: Duoneb) No Longer Active 07/03/2017 [facility] Acetaminophen 650 mg, 2 tab, Route: PO, Drug form: TAB, Q6H, Dosing Weight 91.364, kg, PRN Pain 1-3/Temp > 100.4 F, Start date: 07/03/17 7:53:00 NETWORK FIELD ENGINEER, Duration: 30 day, Stop date: 08/02/17 7:52:00 CSTNotes: Do not exceed 4 gm/day. (Same as: Tylenol) No Longer Active 07/03/2017 [facility] potassium phosphate-sodium phosphate 250 mg-280 mg-160 mg oral powder for reconstitution 2 pkt, Route: PO, Drug Form: PDR/REC, Dosing Weight 91.364, kg, PRN, PRN Abnormal Lab Result, For NON-ICU Patients Only, Start date: 07/03/17 7:50:00 NETWORK FIELD ENGINEER, Duration: 30 day, Stop date: 08/02/17 7:49:00 CSTNotes: (Same as: Phos-NaK) Each 1.5 gm pkt has 250mg phosphorous. Mix w/2.5oz water and stir. No Longer Active 07/03/2017 [facility] Potassium Chloride 20 mEq, 1 tab, Route: PO, Drug form: ERTAB, PRN, Dosing Weight 91.364, kg, PRN Abnormal Lab Result, For NON-ICU Patients Only, Start date: 07/03/17 7:50:00 NETWORK FIELD ENGINEER, Duration: 30 day, Stop date: 08/02/17 7:49:00 CSTNotes: (Same as: K-Dur 20) "Do Not Crush" With food and full glass of water No Longer Active 07/03/2017 [facility] sodium phosphate 30 mmol, 10 mL, Route: IVPB, PRN, Dosing Weight 91.364, kg, PRN Abnormal Lab Result, For NON-ICU Patients Only., Start date: 07/03/17 7:50:00 NETWORK FIELD ENGINEER, Duration: 30 day, Stop date: 08/02/17 7:49:00 NETWORK FIELD ENGINEER No Longer Active 07/03/2017 [facility] Magnesium Sulfate 1 gm, 100 mL, Route: IVPB, Drug form: INJ, PRN, Dosing Weight 91.364, kg, PRN Abnormal Lab Result, For NON-ICU Patients Only., Start date: 07/03/17 7:50:00 NETWORK FIELD ENGINEER, Duration: 30 day, Stop date: 08/02/17 7:49:00 CSTNotes: WASTE: F/P - Sink; E - Municipal Trash Bin No Longer Active 07/03/2017 [facility] potassium phosphate 15 mmol, 5 mL, Route: IVPB, PRN, Dosing Weight 91.364, kg, PRN Abnormal Lab Result, For NON-ICU Patients Only., Start date: 07/03/17 7:50:00 NETWORK FIELD ENGINEER, Duration: 30 day, Stop date: 08/02/17 7:49:00 CSTNotes: (Same as: K Phosphate.) 1 mMol phoshate has 1.47 mEq potassium Infuse over 4 hours No Longer Active 07/03/2017 [facility] Calcium Gluconate 3 gm, 30 mL, Route: IVPB, PRN, Dosing Weight 91.364, kg, PRN Abnormal Lab Result, For NON-ICU Patients Only., Start date: 07/03/17 7:50:00 NETWORK FIELD ENGINEER, Duration: 30 day, Stop date: 08/02/17 7:49:00 CSTNotes: WASTE: F/P - Sink; E - Municipal Trash Bin No Longer Active 07/03/2017 [facility] Magnesium Oxide 800 mg, 2 tab, Route: PO, Drug form: TAB, PRN, Dosing Weight 91.364, kg, PRN Abnormal Lab Result, For NON-ICU Patients Only., Start date: 07/03/17 7:50:00 NETWORK FIELD ENGINEER, Duration: 30 day, Stop date: 08/02/17 7 :49:00 CSTNotes: (Same as: Mag-Ox 400) Magnesium oxide [id number] elemental magnesium Dose=____mg magnesium oxide (___mg elemental magnesium) No Longer Active 07/03/2017 [facility] Oxycodone Hydrochloride 5 MG Oral Tablet 5 mg, 1 tab, Route: PO, Drug form: TAB, Q4H, Dosing Weight 91.364, kg, PRN Pain Score 4-6, Start date: 07/02/17 11:43:00 NETWORK FIELD ENGINEER, Duration: 30 day, Stop date: 08/01/17 11:42:00 CSTNotes: (Same as: Roxicodone) No Longer Active 07/02/2017 [facility] Furosemide 20 MG Oral Tablet [Lasix] 40 mg, 1 tab, Route: PO, Drug form: TAB, Daily, Dosing Weight 91.364, kg, Start date: 07/02/17 9:00:00 NETWORK FIELD ENGINEER, Duration: 30 day, Stop date: 07/31/17 9:00:00 CSTNotes: (Same as: Lasix) May cause GI upset. Give with food or milk. No Longer Active 07/02/2017 [facility] Imdur 30 mg, 1 tab, Route: PO, Drug form: ERTAB, Q12H, Dosing Weight 91.364, kg, Start date: 07/01/17 21:00:00 NETWORK FIELD ENGINEER, Duration: 30 day, Stop date: 07/31/17 9:00:00 CSTNotes: (Same as:Imdur) "Do Not Crush" Take on empty stomach/ full glass of water. Do not crush No Longer Active 07/02/2017 [facility] Hydralazine 50 mg, 1 tab, Route: PO, Drug form: TAB, Q6H, Dosing Weight 91.364, kg, Start date: 07/01/17 12:00:00 NETWORK FIELD ENGINEER, Duration: 30 day, Stop date: 07/31/17 6:00:00 CSTNotes: (Same as: Apresoline) May interfere w/enteral feedings Take With Food No Longer Active 07/01/2017 [facility] enalapril 0.625 mg, 0.5 mL, Route: IVP, Drug form: INJ, Q6H, Dosing Weight 91.364, kg, PRN Hypertension, Priority: NOW, Start date: 07/01/17 7:15:00 NETWORK FIELD ENGINEER, Duration: 30 day, Stop date: 07/31/17 7:14:00 NETWORK FIELD ENGINEER, SBP > 160Notes: (Same as: Vasotec-IV) No Longer Active 07/01/2017 [facility] Melatonin 3 MG Extended Release Tablet 3 mg, 1 tab, Route: PO, Drug Form: TAB, Dosing Weight 91.364, kg, Bedtime, Start date: 06/30/17 21:00:00 NETWORK FIELD ENGINEER, Duration: 30 day, Stop date: 07/29/17 21:00:00 CSTNotes: (Same as: Melatonin) No Longer Active 07/01/2017 [facility] tramadol hydrochloride 50 MG Oral Tablet 50 mg, 1 tab, Route: PO, Drug form: TAB, Q8H, Dosing Weight 91.364, kg, PRN Pain Score 6-10, Start date: 06/30/17 14:59:00 NETWORK FIELD ENGINEER, Duration: 3 day, Stop date: 07/03/17 14:58:00 CSTNotes: Not to exceed 400mg/day. (Same As: Ultram) No Longer Active 06/30/2017 [facility] Lasix 40 mg, 4 mL, Route: IVP, Drug form: INJ, Daily, Dosing Weight 91.364, kg, Start date: 06/30/17 9:00:00 NETWORK FIELD ENGINEER, Duration: 3 day, Stop date: 07/02/17 9:00:00 CSTNotes: (Same as: Lasix) MEDICATION WASTE Product Size: 40 mg Product Wasted: _0_ mg No Longer Active 06/30/2017 [facility] tramadol hydrochloride 50 MG Oral Tablet 50 mg, 1 tab, Route: PO, Drug form: TAB, ONCE, Dosing Weight 91.364, kg, Priority: NOW, Start date: 06/30/17 3:37:00 NETWORK FIELD ENGINEER, Stop date: 06/30/17 3:37:00 CSTNotes: Not to exceed 400mg/day. (Same As: Ultram) Inactive 06/30/2017 [facility] Melatonin 3 MG Extended Release Tablet 3 mg, 1 tab, Route: PO, Drug Form: TAB, Dosing Weight 91.364, kg, Bedtime, PRN as needed for insomnia, Start date: 06/28/17 22:39:00 NETWORK FIELD ENGINEER, Duration: 30 day, Stop date: 07/28/17 22:38:00 CSTNotes: (Same as: Melatonin) No Longer Active 06/29/2017 [facility] gabapentin 100 MG Oral Capsule 100 mg, 1 cap, Route: PO, Drug form: CAP, Q8H, Dosing Weight 91.364, kg, Priority: NOW, Start date: 06/28/17 18:45:00 NETWORK FIELD ENGINEER, Duration: 30 day, Stop date: 07/28/17 16:00:00 CSTNotes: (Same as: Neurontin) No Longer Active 06/29/2017 [facility] Tramadol 25 mg, 0.5 tab, Route: PO, Drug form: TAB, Q6H, Dosing Weight 91.364, kg, PRN Pain Score 6-10, Start date: 06/28/17 18:43:00 NETWORK FIELD ENGINEER, Duration: 30 day, Stop date: 07/28/17 18:42:00 CSTNotes: 25 mg=1/2 x 50 mg TAB Not to exceed 400mg/day. (Same As: Ultram) No Longer Active 06/29/2017 [facility] Tylenol 1,000 mg, 2 tab, Route: PO, Drug form: TAB, Q6Hnow, Dosing Weight 91.364, kg, Priority: NOW, Start date: 06/28/17 18:43:00 NETWORK FIELD ENGINEER, Duration: 30 day, Stop date: 07/28/17 13:00:00 CSTNotes: Max acetaminophen 4000 mg/day (4 gm/day). (Same as: Tylenol Extra Strength) No Longer Active 06/29/2017 [facility] phenol 14 MG/ML Mucosal Thebes 1 spray, Route: TOP, QID, Drug form: SPRY, Start date: 06/28/17 13:00:00 NETWORK FIELD ENGINEER, Duration: 30 day, Stop date: 07/28/17 9:00:00 CSTNotes: Chloraseptic Thebes (Same as: Chloraseptic, Sore Throat Thebes) WASTE: F/P - Black; E - Municipal Trash Bin No Longer Active 06/28/2017 [facility] Simethicone 80 mg, 1 tab, Route: CHEW, Drug form: CHEWTAB, Q6H, Dosing Weight 91.364, kg, Priority: NOW, Start date: 06/28/17 12:39:00 NETWORK FIELD ENGINEER, Duration: 30 day, Stop date: 07/28/17 12:00:00 CSTNotes: (Same as: Mylicon) No Longer Active 06/28/2017 [facility] Tylenol 650 mg, 2 tab, Route: PO, Drug form: TAB, Q6H, Dosing Weight 91.364, kg, PRN Pain 1-3/Temp > 100.4 F, Start date: 06/28/17 12:39:00 NETWORK FIELD ENGINEER, Duration: 30 day, Stop date: 07/28/17 12:38:00 CSTNotes: Do not exceed 4 gm/day. (Same as: Tylenol) Inactive 06/28/2017 [facility] Imdur 30 mg, 1 tab, Route: PO, Drug form: ERTAB, QAM, Dosing Weight 91.364, kg, Priority: Within 4 hours, Start date: 06/28/17 9:00:00 NETWORK FIELD ENGINEER, Duration: 30 day, Stop date: 07/27/17 9:00:00 CSTNotes: (Same as:Imdur) "Do Not Crush" Take on empty stomach/ full glass of water. Do not crush No Longer Active 06/28/2017 [facility] Hydralazine 25 mg, 1 tab, Route: PO, Drug form: TAB, Q6H, Dosing Weight 91.364, kg, Start date: 06/27/17 18:00:00 NETWORK FIELD ENGINEER, Duration: 30 day, Stop date: 07/27/17 12:00:00 CSTNotes: (Same as: Apresoline) May interfere w /enteral feedings Take With Food. No Longer Active 06/28/2017 [facility] Hydralazine 10 mg, 0.5 mL, Route: IVP, Drug form: INJ, Q4H, Dosing Weight 91.364, kg, PRN Other -See Comment, Start date: 06/27/17 16:13:00 NETWORK FIELD ENGINEER, Duration: 30 day, Stop date: 07/27/17 16:12:00 NETWORK FIELD ENGINEER, Hypertension ( SBP > 150) or (DBP > 90)Notes: (Same as: Apresoline) Push over 5 minutes No Longer Active 06/27/2017 [facility] Hydralazine 25 mg, 1 tab, Route: PO, Drug form: TAB, Q8H, Dosing Weight 91.364, kg, Start date: 06/27/17 16:00:00 NETWORK FIELD ENGINEER, Duration: 30 day, Stop date: 07/27/17 8:00:00 CSTNotes: (Same as: Apresoline) May interfere w/ enteral feedings Take With Food. Inactive 06/27/2017 [facility] insulin detemir 12 unit, 0.12 mL, Route: SUB-Q, Drug form: SOLN, Daily, Dosing Weight 91.364, kg, Start date: 06/27/17 9:00:00 NETWORK FIELD ENGINEER, Duration: 30 day, Stop date: 07/26/17 9:00:00 CSTNotes: Non-Formulary Drug (Same as Levemir) Do not hold insulin without contacting prescriber WASTE: F/P - Black; E - Municipal Trash Bin "single patient use only" No Longer Active 06/27/2017 [facility] sennosides, ALF 17.2 mg, 2 tab, Route: PO, Drug Form: TAB, Dosing Weight 91.364, kg, Daily, Within 4 hours, Start date: 06/27/17 9:00:00 NETWORK FIELD ENGINEER, Stop date: 07/26/17 9:00:00 CSTNotes: (Same as: Senokot) No Longer Active 06/27/2017 [facility] Hydrochlorothiazide 25 MG Oral Tablet 25 mg, 1 tab, Route: PO, Drug form: TAB, Daily, Dosing Weight 91.364, kg, Start date: 06/27/17 9:00:00 NETWORK FIELD ENGINEER, Duration: 30 day, Stop date: 07/26/17 9:00:00 CSTNotes: (Same as: Hydrodiuril) With food. No Longer Active 06/27/2017 [facility] Reglan 10 mg, 2 mL, Route: IVP, Drug form: INJ, Q6H-02, Dosing Weight 91.364, kg, Priority: NOW, Start date: 06/27/17 8:21:00 NETWORK FIELD ENGINEER, Duration: 1 day, Stop date: 06/28/17 8:00:00 CSTNotes: (Same as: Reglan) No Longer Active 06/27/2017 [facility] Lasix 40 mg, 4 mL, Route: IVP, Drug form: INJ, BID Diuretic, Dosing Weight 91.364, kg, Priority: NOW, Start date: 06/27/17 8:16:00 NETWORK FIELD ENGINEER, Duration: 2 day, Stop date: 06/29/17 6:00:00 CSTNotes: (Same as: Lasix) MEDICATION WASTE Product Size: 40 mg Product Wasted: ___ mg No Longer Active 06/27/2017 [facility] Hydralazine 25 mg, 1 tab, Route: PO, Drug form: TAB, ONCE, Dosing Weight 91.364, kg, Priority: NOW, Start date: 06/27/17 8:14:00 NETWORK FIELD ENGINEER, Stop date: 06/27/17 8:14:00 CSTNotes: (Same as: Apresoline) May interfere w/enteral feedings Take With Food. Inactive 06/27/2017 [facility] Furosemide 60 mg, 6 mL, Route: IV, Drug form: INJ, ONCE, Dosing Weight 91.364, kg, Priority: NOW, Start date: 06/26/17 21:16:00 NETWORK FIELD ENGINEER, Stop date: 06/26/17 21:16:00 CSTNotes: (Same as: Lasix) MEDICATION WASTE * Product Size: 40 mg Product Wasted: _20__ mg Inactive 06/27/2017 [facility] Docusate 100 mg, 1 cap, Route: PO, Drug form: CAP, BID, Dosing Weight 91.364, kg, Start date: 06/26/17 17:00:00 NETWORK FIELD ENGINEER, Duration: 30 day, Stop date: 07/26/17 9:00:00 CSTNotes: (Same as: Colace) (Do Not Crush) No Longer Active 06/26/2017 [facility] Lasix 40 mg, 4 mL, Route: IVP, Drug form: INJ, ONCE, Dosing Weight 91.364, kg, Start date: 06/26/17 16:00:00 NETWORK FIELD ENGINEER, Stop date: 06/26/17 16:00:00 CSTNotes: (Same as: Lasix) MEDICATION WASTE Product Size: 40 mg Product Wasted: ___ mg Inactive 06/26/2017 [facility] Albuterol 0.833 MG/ML / Ipratropium Echola 0.167 MG/ML Inhalant Solution [DuoNeb] 3 ml, Route: NEB, Drug Form: SOLN, Dosing Weight 91.364, kg, RQ6H, Start date: 06/26/17 14:00:00 NETWORK FIELD ENGINEER, Duration: 30 day, Stop date: 07/26/17 8:00:00 CSTNotes: (Same as: Duoneb) Inactive 06/26/2017 [facility] Benzocaine 140 MG/ML / butamben 20 MG/ML / Tetracaine 20 MG/ML Mucosal Thebes [Cetacaine] 1 spray, Route: TOP, ONCE, Drug form: AERO, Start date: 06/26/17 13:52:00 NETWORK FIELD ENGINEER, Stop date: 06/26/17 13:52:00 CSTNotes: Cetacaine ([id number] 14-2-2%) WASTE: Aerosol - Return to Pharmacy (Same As: Cetacaine) Inactive 06/26/2017 [facility] SMOG Enema 300 ml, Route: WA, Drug Form: CARINE, Dosing Weight 91.364, kg, ONCE, NOW, Start date: 06/26/17 13:42:00 NETWORK FIELD ENGINEER, Stop date: 06/26/17 13:42:00 CSTNotes: Non formulary item saline for irrigation (1L bottle) 100 mL, mineral oil 100 mL, glycerine 100 mL. Dispense (300 ml) in 1L NS bottle Inactive 06/26/2017 [facility] Neostigmine 2 mg, 2 mL, Route: IV, Drug form: INJ, ONCE, Dosing Weight 91.364, kg, Priority: NOW, Start date: 06/26/17 13:36:00 NETWORK FIELD ENGINEER, Stop date: 06/26/17 13:36:00 CSTNotes: Same as: Prostigmin MEDICATION WA JOCELYN Product Size: 5 mg Product Wasted: ___ mg Inactive 06/26/2017 [facility] Albuterol 0.833 MG/ML / Ipratropium Echola 0.167 MG/ML Inhalant Solution [DuoNeb] 3 ml, Route: NEB, Drug Form: SOLN, Dosing Weight 91.364, kg, RQ6H, NOW, Start date: 06/26/17 13:35:00 NETWORK FIELD ENGINEER, Duration: 30 day, Stop date: 07/26/17 8:00:00 CSTNotes: (Same as: Duoneb) No Longer Active 06/26/2017 [facility] Mylicon 80 mg, 1 tab, Route: CHEW, Drug form: CHEWTAB, TID, Dosing Weight 91.364, kg, Priority: Within 4 hours, Start date: 06/26/17 13:00:00 NETWORK FIELD ENGINEER, Duration: 30 day, Stop date: 07/26/17 9:00:00 CSTNotes: (Same as: Mylicon) No Longer Active 06/26/2017 [facility] Lasix 40 mg, 4 mL, Route: IVP, Drug form: INJ, ONCE, Dosing Weight 91.364, kg, Priority: STAT, Start date: 06/26/17 12:17:00 NETWORK FIELD ENGINEER, Stop date: 06/26/17 12:17:00 CSTNotes: (Same as: Lasix) MEDICATION WASTE Product Size: 40 mg Product Wasted: ___ mg Inactive 06/26/2017 [facility] Dulcolax Laxative 10 mg, 1 supp, Route: WA, Drug form: SUPP, ONCE, Dosing Weight 91.364, kg, Priority: Within 4 hours, Start date: 06/26/17 11:39:00 NETWORK FIELD ENGINEER, Stop date: 06/26/17 11:39:00 CSTNotes: (Same As: Dulcolax, Bisco-Lax) Inactive 06/26/2017 [facility] Hydralazine 25 mg, 1 tab, Route: PO, Drug form: TAB, Q8H, Dosing Weight 91.364, kg, Priority: NOW, Start date: 06/26/17 11:04:00 NETWORK FIELD ENGINEER, Duration: 30 day, Stop date: 07/26/17 8:00:00 CSTNotes: (Same as: Apresoline) M ay interfere w/enteral feedings Take With Food. No Longer Active 06/26/2017 [facility] Miralax 17 gm, 1 pkt, Route: PO, Drug form: PWDR, Daily, Dosing Weight 91.364, kg, PRN Constipation, Start date: 06/26/17 11:03:00 NETWORK FIELD ENGINEER, Duration: 30 day, Stop date: 07/26/17 11:02:00 CSTNotes: Dissolve in 8 oz of water or juice. (Same as: Miralax) No Longer Active 06/26/2017 [facility] Insulin Lispro 8 unit, 0.08 mL, Route: SUB-Q, Drug form: SOLN, TID-Before Meals, Dosing Weight 91.364, kg, PRN Blood Glucose Results, Start date: 06/26/17 9:01:00 NETWORK FIELD ENGINEER, Duration: 30 day, Stop date: 07/26/17 9:00:00 CSTNotes: (Same as: Humalog ) Roll in palms of hands gently; Do not shake `vigorously. "Single Patient Use Only " WASTE: F/P - Black; E - Municipal Trash Bin Stable for 28 days at room temperature. Expires in days from Date No Longer Active 06/26/2017 [facility] Dextrose 50% Syringe 12.5 gm, 25 mL, Route: IVP, Drug Form: INJ, Dosing Weight 91.364, kg, PRN, PRN Blood Glucose Results, Start date: 06/26/17 9:01:00 NETWORK FIELD ENGINEER, Duration: 30 day, Stop date: 07/26/17 9:00:00 NETWORK FIELD ENGINEER No Longer Active 06/26/2017 [facility] Glucagon 1 mg, Route: IM, Drug form: PDR/INJ, PRN, Dosing Weight 91.364, kg, PRN Blood Glucose Results, Start date: 06/26/17 9:01:00 NETWORK FIELD ENGINEER, Duration: 30 day, Stop date: 07/26/17 9:00:00 NETWORK FIELD ENGINEER No Longer Active 06/26/2017 [facility] Amlodipine 10 mg, 1 tab, Route: PO, Drug form: TAB, Daily, Dosing Weight 91.364, kg, Start date: 06/26/17 9:00:00 NETWORK FIELD ENGINEER, Duration: 30 day, Stop date: 07/25/17 9:00:00 CSTNotes: (Same as: Norvasc) No Longer Active 06/26/2017 [facility] Lasix 20 mg, 2 mL, Route: IVP, Drug form: INJ, ONCE, Dosing Weight 91.364, kg, Priority: NOW, Start date: 06/26/17 9:00:00 NETWORK FIELD ENGINEER, Stop date: 06/26/17 9:00:00 CSTNotes: (Same as: Lasix) Inactive 06/26/2017 [facility] Streptococcus pneumoniae serotype 1 capsular antigen diphtheria [id number] protein conjugate vaccine / Streptococcus pneumoniae serotype 14 capsular antigen diphtheria [id number] protein conjugate vaccine / Streptococcus pneumoniae serotype 18C capsular antigen d 0.5 mL, Route: IM, Drug Form: INJ, Daily, Start date: 06/26/17 9:00:00 NETWORK FIELD ENGINEER, Duration: 1 doses or times, Stop date: 06/26/17 9:00:00 CSTNotes: Shake well prior to use (Same as: Prevnar 13) Inactive 06/26/2017 [facility] Reglan 10 mg, 2 mL, Route: IV, Drug form: INJ, Q6Hnow, Dosing Weight 91.364, kg, Priority: NOW, Start date: 06/26/17 7:27:00 NETWORK FIELD ENGINEER, Duration: 1 day, Stop date: 06/27/17 1:27:00 CSTNotes: (Same as: Reglan) No Longer Active 06/26/2017 [facility] insulin detemir 10 unit, 0.1 mL, Route: SUB-Q, Drug form: SOLN, Daily, Dosing Weight 91.364, kg, Priority: NOW, Start date: 06/26/17 7:25:00 NETWORK FIELD ENGINEER, Duration: 30 day, Stop date: 07/25/17 9:00:00 CSTNotes: Non-Formulary Drug (Same as Levemir) Do not hold insulin without contacting prescriber WASTE: F/P - Black; E - Municipal Trash Bin "single patient use only" No Longer Active 06/26/2017 [facility] Budesonide 0.25 MG/ML Inhalant Solution 0.5 mg, 2 mL, Route: NEB, Drug form: SUSP, RBID, Dosing Weight 91.364, kg, Start date: 06/26/17 4:59:00 NETWORK FIELD ENGINEER, Duration: 30 day, Stop date: 07/25/17 20:00:00 CSTNotes: (Same As: Pulmicort) No Longer Active 06/26/2017 [facility] Lasix 20 mg, 2 mL, Route: IVP, Drug form: INJ, ONCE, Dosing Weight 91.364, kg, Priority: NOW, Start date: 06/26/17 4:52:00 NETWORK FIELD ENGINEER, Stop date: 06/26/17 4:52:00 CSTNotes: (Same as: Lasix) Inactive 06/26/2017 [facility] Coreg 6.25 mg, 1 tab, Route: PO, Drug form: TAB, Q12H, Dosing Weight 91.364, kg, Start date: 06/25/17 21:00:00 NETWORK FIELD ENGINEER, Duration: 30 day, Stop date: 07/25/17 9:00:00 CSTNotes: Give with food. (Same As: Coreg) No Longer Active 06/26/2017 [facility] Acetaminophen 325 MG / Hydrocodone Bitartrate 5 MG Oral Tablet [[place] 5/325] 1 tab, Route: PO, Drug Form: TAB, Dosing Weight 91.364, kg, Q4H, PRN Pain Score 1-3, Start date: 06/25/17 17:54:00 NETWORK FIELD ENGINEER, Duration: 30 day, Stop date: 07/25/17 17:53:00 CSTNotes: (Same as: [place] 325/5) Do not exceed 4gm/day of acetaminophen. No Longer Active 06/25/2017 [facility] Zofran 4 mg, 2 mL, Route: IV, Drug form: INJ, Q8H, Dosing Weight 91.364, kg, PRN Nausea, Start date: 06/25/17 17:53:00 NETWORK FIELD ENGINEER, Duration: 30 day, Stop date: 07/25/17 17:52:00 CSTNotes: (Same as: Zofran) MEDICATION WASTE Product Size: 4 mg Product Wasted: _0__ mg No Longer Active 06/25/2017 [facility] Furosemide 20 mg, 2 mL, Route: IVP, Drug form: INJ, ONCE, Dosing Weight 91.364, kg, Start date: 06/25/17 11:51:00 NETWORK FIELD ENGINEER, Stop date: 06/25/17 11:51:00 CSTNotes: (Same as: Lasix) Inactive 06/25/2017 [facility] clopidogrel 75 mg, 1 tab, Route: PO, Drug form: TAB, Daily, Dosing Weight 91.364, kg, Start date: 06/25/17 9:00:00 NETWORK FIELD ENGINEER, Duration: 30 day, Stop date: 07/24/17 9:00:00 CSTNotes: (Same As: Plavix) No Longer Active 06/25/2017 [facility] chlorhexidine gluconate 40 MG/ML Medicated Liquid Soap 1 appl, Route: BATHE, Q-M-W-F, Drug form: SOAP, Start date: 06/25/17 9:00:00 NETWORK FIELD ENGINEER, Duration: 30 day, Stop date: 07/23/17 9:00:00 CSTNotes: (Same As: Hibiclens) Inactive 06/25/2017 [facility] Bisacodyl 10 mg, 1 supp, Route: WA, Drug form: SUPP, Daily, Dosing Weight 91.364, kg, PRN Constipation, Start date: 06/25/17 7:38:00 NETWORK FIELD ENGINEER, Duration: 30 day, Stop date: 07/25/17 7:37:00 CSTNotes: (Same As: Dulcolax, Bisco-Lax) No Longer Active 06/25/2017 [facility] Ofirmev 1,000 mg, 100 mL, Route: IV, Drug form: INJ, ONCE, Dosing Weight 91.364, kg, for > or=50 kg, Start date: 06/25/17 3:47:00 NETWORK FIELD ENGINEER, Stop date: 06/25/17 3:47:00 CSTNotes: Infuse over 15 minutes Do not exceed 4gm/day of acetaminophen MEDICATION WASTE Product Size: 1000 mg Product Wasted: ___ mg Inactive 06/25/2017 [facility] Vancomycin 1,250 mg, 250 mL, Route: IVPB, Drug form: INJ, [id number], Dosing Weight 91.364, kg, Time Critical Medication, Start date: 06/25/17 3:00:00 NETWORK FIELD ENGINEER, Duration: 2 doses or times, Stop date: 06/25/17 15:00:00 NETWORK FIELD ENGINEER, ABX Indication: Surgical ProphylaxisNotes: TIME CRITICAL MEDICATION Same as: Vancocin-NS (premixed) Infusion rate 2001 mg: infuse over 2.5 hours Inactive 06/25/2017 [facility] albumin human 5% intravenous solution 25 gm, 500 mL, 500 ml/hr, Route: IV, Drug Form: INJ, Dosing Weight 91.364, kg, ONCE, Start date: 06/25/17 2:02:00 NETWORK FIELD ENGINEER, Stop date: 06/25/17 2:02:00 CSTNotes: LOT#: Mfg: WASTE: F/P - Red; E -Red (Same as: Albuminar) "blood product derivative" Inactive 06/25/2017 [facility] Cefazolin 2 gm, 20 mL, Route: IVPB, Drug form: SOLN, [id number], Dosing Weight 91.364, kg, Start date: 06/25/17 1:00:00 NETWORK FIELD ENGINEER, Duration: 3 doses or times, Stop date: 06/25/17 17:00:00 NETWORK FIELD ENGINEER, ABX Indication: Surgical P rophylaxisNotes: (Same as Ancef) Inactive 06/25/2017 [facility] albumin human 5% intravenous solution 25 gm, 500 mL, 500 ml/hr, Route: IV, Drug Form: INJ, Dosing Weight 91.364, kg, ONCE, Start date: 06/25/17 0:11:00 NETWORK FIELD ENGINEER, Stop date: 06/25/17 0:11:00 CSTNotes: LOT#: Mfg: WASTE: F/P - Red; E -Red (Same as: Albuminar) "blood product derivative" Inactive 06/25/2017 [facility] ocular lubricant 1 appl, Route: BOTH EYES, Q6H, Drug form: OINT, Start date: 06/25/17 0:00:00 NETWORK FIELD ENGINEER, Duration: 30 day, Stop date: 07/24/17 18:00:00 CSTNotes: (Same as: Lacri-Lube, Duratears Naturale, Artificial Tears, and Tears Again ) Inactive 06/25/2017 [facility] albumin human 5% intravenous solution 25 gm, 500 mL, 500 ml/hr, Route: IV, Drug Form: INJ, Dosing Weight 91.364, kg, ONCE, Start date: 06/24/17 23:46:00 NETWORK FIELD ENGINEER, Stop date: 06/24/17 23:46:00 CSTNotes: LOT#: Mfg: WASTE: F/P - Red; E -Red (Same as: Albuminar) "blood product derivative" No Longer Active 06/25/2017 [facility] Insulin regular 100 unit + 99 mL, Rate: Start Insulin Drip Per ICU Protocol, Dosing Weight 91.364, kg, Route: IVPB, Total Volume: 100, Start Date: 06/24/17 21:58:00 NETWORK FIELD ENGINEER, Duration: 30 day, Stop date: 07/24/17 21:57:00 NETWORK FIELD ENGINEER, Replace Every: 24 hrNotes: Final Concentration 1unit/1ml WASTE: F/P - Black; E - Municipal Trash Bin No Longer Active 06/25/2017 [facility] Dextrose 50% Syringe 25 gm, 50 mL, Route: IVP, Drug Form: INJ, Dosing Weight 91.364, kg, PRN, PRN Blood Glucose Results, Start date: 06/24/17 21:58:00 NETWORK FIELD ENGINEER, Duration: 30 day, Stop date: 07/24/17 21:57:00 NETWORK FIELD ENGINEER No Longer Active 06/25/2017 [facility] Sodium Chloride 0.9% (Bolus) IV 1,000 mL, 1,000 ml/hr, Infuse Over: 1 hr, Route: IV, 1,000, Drug form: INJ, ONCE, Priority: STAT, Dosing Weight 91.364 kg, Start date: 06/24/17 21:05:00 NETWORK FIELD ENGINEER, Stop date: 06/24/17 21:05:00 NETWORK FIELD ENGINEER Inactive 06/25/2017 [facility] chlorhexidine gluconate 1.2 MG/ML Mouthwash 15 mL, Route: Swab Mouth, Q12H, Drug form: LIQ, Start date: 06/24/17 21:00:00 NETWORK FIELD ENGINEER, Duration: 30 day, Stop date: 07/24/17 9:00:00 CSTNotes: (Same As: Peridex) No Longer Active 06/25/2017 [facility] Nicardipine 40 mg, 200 mL, Rate: Titrate, Start Dose: 5 mg/hr, Titration: 2.5 mg/hr every 15 minutes, Goal(s): SBP Notes: Same as: Cardene Concentration: (0.2 mg /1 ml ) No Longer Active 06/25/2017 [facility] chlorhexidine gluconate 1.2 MG/ML Mouthwash 15 mL, Route: Swab Mouth, PRN, Drug form: LIQ, PRN Other -See Comment, Start date: 06/24/17 18:55:00 NETWORK FIELD ENGINEER, Duration: 30 day, Stop date: 07/24/17 18:54:00 CSTNotes: (Same As: Peridex) No Longer Active 06/25/2017 [facility] Fentanyl 25 microgram, 0.5 mL, Route: IV, Drug form: INJ, Q2H, Dosing Weight 91.364, kg, PRN Pain Score 4-6, Start date: 06/24/17 18:54:00 NETWORK FIELD ENGINEER, Duration: 30 day, Stop date: 07/24/17 18:53:00 CSTNotes: (Same as: Sublimaze) Preservative free. No Longer Active 06/25/2017 [facility] Albuterol 0.833 MG/ML / Ipratropium Echola 0.167 MG/ML Inhalant Solution [DuoNeb] 3 ml, Route: NEB, Drug Form: SOLN, Dosing Weight 91.364, kg, PRN, PRN Respiratory Protocol, Start date: 06/24/17 18:54:00 NETWORK FIELD ENGINEER, Duration: 30 day, Stop date: 07/24/17 18:53:00 CSTNotes: (Same as: Duoneb) No Longer Active 06/25/2017 [facility] potassium phosphate-sodium phosphate 250 mg-280 mg-160 mg oral powder for reconstitution 2 pkt, Route: PO, Drug Form: PDR/REC, Dosing Weight 91.364, kg, PRN, PRN Abnormal Lab Result, FOR ICU USE ONLY, Start date: 06/24/17 18:23:00 NETWORK FIELD ENGINEER, Duration: 30 day, Stop date: 07/24/17 18:22:00 CSTNotes: (Same as: Phos-NaK) Each 1.5 gm pkt has 250mg phosphorous. Mix w/2.5oz water and stir. No Longer Active 06/25/2017 [facility] Magnesium Sulfate 2 gm, 50 mL, Route: IVPB, Drug form: INJ, PRN, Dosing Weight 91.364, kg, PRN Abnormal Lab Result, Start date: 06/24/17 18:23:00 NETWORK FIELD ENGINEER, Duration: 30 day, Stop date: 07/24/17 18:22:00 NETWORK FIELD ENGINEER, FOR ICU USE ONLYNotes: WASTE: F/P - Sink; E - Municipal Trash Bin No Longer Active 06/25/2017 [facility] Potassium Chloride 20 mEq, 100 mL, Route: IVPB, Drug form: INJ, PRN, Dosing Weight 91.364, kg, PRN Abnormal Lab Result, Via central line, Start date: 06/24/17 18:23:00 NETWORK FIELD ENGINEER, Duration: 30 day, Stop date: 07/24/17 18:22:0 0 NETWORK FIELD ENGINEER, FOR ICU USE ONLYNotes: (Same as: KCL) Infuse no faster than 10 mEq/hr if given peripherally. No Longer Active 06/25/2017 [facility] sodium phosphate 15 mmol, 5 mL, Route: IVPB, PRN, Dosing Weight 91.364, kg, PRN Abnormal Lab Result, Start date: 06/24/17 18:23:00 NETWORK FIELD ENGINEER, Duration: 30 day, Stop date: 07/24/17 18:22:00 NETWORK FIELD ENGINEER, FOR ICU USE ONLY No Longer Active 06/25/2017 [facility] potassium phosphate 15 mmol, 5 mL, Route: IVPB, PRN, Dosing Weight 91.364, kg, PRN Abnormal Lab Result, Start date: 06/24/17 18:23:00 NETWORK FIELD ENGINEER, Duration: 30 day, Stop date: 07/24/17 18:22:00 NETWORK FIELD ENGINEER, FOR ICU USE ONLYNotes: (Same as: K Phosphate.) 1 mMol phoshate has 1.47 mEq potassium Infuse over 4 hours No Longer Active 06/25/2017 [facility] Calcium Carbonate 500 MG Chewable Tablet 500 mg, 1 tab, Route: PO, Drug form: CHEWTAB, PRN, Dosing Weight 91.364, kg, PRN Abnormal Lab Result, FOR ICU USE ONLY, Start date: 06/24/17 18:23:00 NETWORK FIELD ENGINEER, Duration: 30 day, Stop date: 07/24/17 18:22:00 CSTNotes: (Same As: Tums) Calcium Carbonate 500 er=623 mg elemental calcium Dose= mg calcium carbonate ( mg elemental calcium) No Longer Active 06/25/2017 [facility] Magnesium Oxide 800 mg, 2 tab, Route: PO, Drug form: TAB, PRN, Dosing Weight 91.364, kg, PRN Abnormal Lab Result, FOR ICU USE ONLY, Start date: 06/24/17 18:23:00 NETWORK FIELD ENGINEER, Duration: 30 day, Stop date: 07/24/17 18:22:00 C STNotes: (Same as: Mag-Ox 400) Magnesium oxide [id number] elemental magnesium Dose=____mg magnesium oxide (___mg elemental magnesium) No Longer Active 06/25/2017 [facility] Calcium Gluconate 1 gm, 10 mL, Route: IVPB, PRN, Dosing Weight 91.364, kg, PRN Abnormal Lab Result, Start date: 06/24/17 18:23:00 NETWORK FIELD ENGINEER, Duration: 30 day, Stop date: 07/24/17 18:22:00 NETWORK FIELD ENGINEER, FOR ICU USE ONLYNotes: WASTE: F/P - Sink; E - Municipal Trash Bin No Longer Active 06/25/2017 [facility] Insulin regular 2 unit, 0.02 mL, Route: SUB-Q, Drug form: SOLN, TID-Before Meals, Dosing Weight 91.364, kg, PRN Blood Glucose Results, Start date: 06/24/17 18:23:00 [employer], Duration: 30 day, Stop date: 07/24/17 18:22:0 0 CSTNotes: (Same as: Humulin R) Roll in palms of hands gently; Do not shake vigorously. "single patient use only" (Restricted to patients requiring a dose > 60 units) WASTE: F/P - Black; E - Municipal Trash Bin Stable for 28 days at room temperature Expires in days from Date Inactive 06/25/2017 [facility] Hydromorphone 15 mg, 30 mL, Route: IV, Initial Loading Dose: 0.4mg, [employer]IE[employer] Dose: 0.2 mg, [employer] Lockout: 10 minutes, Continuous Basal Rate: 0 mg, 4 Hour Limit (In MG): 4.8, Drug Form: INJ, Continuous, Start date: 06/24/17 18:23:00 NETWORK FIELD ENGINEER, Duration: 30 day, Stop date: ...Notes: (Same as: Dilaudid) conc=0.5 mg/ml Hydromorphone [employer]IE[employer] Dose: ;Delay: ;Basal: No Longer Active 06/25/2017 [facility] Naloxone 0.04 mg, 0.1 mL, Route: IVP, Drug form: INJ, Q2MIN, Dosing Weight 91.364, kg, PRN Narcotic Reversal, Start date: 06/24/17 18:23:00 NETWORK FIELD ENGINEER, Duration: 30 day, Stop date: 07/24/17 18:22:00 CSTNotes: Same as Narcan No Longer Active 06/25/2017 [facility] Fentanyl 1,000 microgram, 20 mL, Rate: Titrate, Start Dose: 50 microgram/hr, Titration: Titrate by 25 micrograms/hour every 15 minutes, Goal(s): Postop, Max Dose: 300 mcg/hr, Route: IV, Dosing Weight 91.364 kg, Total Volume: 20, Start date: 06/24/17 18:23:00 C... No Longer Active 06/25/2017 [facility] Nitroglycerin 0.4 mg, 1 tab, Route: SL, Drug form: TAB, Q5Min, Dosing Weight 91.364, kg, PRN Chest Pain, Start date: 06/24/17 18:23:00 NETWORK FIELD ENGINEER, Duration: 30 day, Stop date: 07/24/17 18:22:00 CSTNotes: (Same as:Nitroqu ick, Nitrostat) "Do Not Crush" Sublingual tablet No Longer Active 06/25/2017 [facility] Docusate 100 mg, 1 cap, Route: PO, Drug form: CAP, BID, Dosing Weight 91.364, kg, PRN Constipation, Start date: 06/24/17 18:23:00 NETWORK FIELD ENGINEER, Duration: 30 day, Stop date: 07/24/17 18:22:00 CSTNotes: (Same as: Colace) (Do Not Crush) No Longer Active 06/25/2017 [facility] protamine (ANES) Route: IV, Drug form: INJ, ONCE, Stop date: 06/24/17 18:20:00 NETWORK FIELD ENGINEER Inactive 06/25/2017 [facility] Insulin regular (ANES) Route: IV, Drug form: INJ, ONCE, Stop date: 06/24/17 17:40:00 NETWORK FIELD ENGINEER Inactive 06/24/2017 [facility] magnesium sulfate (ANES) Route: IV, Drug form: INJ, ONCE, Stop date: 06/24/17 17:35:00 NETWORK FIELD ENGINEER Inactive 06/24/2017 [facility] dexmedetomidine (ANES) 200 microgram Route: IV, Drug form: INJ, Start date: 06/24/17 17:35:00 NETWORK FIELD ENGINEER, Stop date: 06/24/17 18:35:00 NETWORK FIELD ENGINEER Inactive 06/24/2017 [facility] Exparel 20 mL, Route: InFILtration(local), Drug Form: INJ, Dosing Weight 91.364, kg, ONCALL, For Hemorrhoidectomy, Start date: 06/24/17 16:00:00 NETWORK FIELD ENGINEER, Duration: 1 day, Stop date: 06/25/17 15:59:00 CSTNotes: (Same as: Exparel) NOT FOR IV use Postoperative analgesia: Infiltration (local): Dose is based on surgical site and volume required to cover the area (in general, the maximum total dose is 266 mg). Bunionectomy: 7 mL into the tissues surrounding the osteotomy and 1 mL into the subcutaneous tissue of the surgical site (total dose=8 mL [106 mg]) Hemorrhoidectomy: 30 mL (20 mL vial diluted with 10 mL NS) divided and administered as 6 injections of 5 mL each (total dose=30 mL [266 mg]) No Longer Active 06/24/2017 [facility] lidocaine (ANES) Route: IV, Drug form: INJ, ONCE, Stop date: 06/24/17 15:20:00 NETWORK FIELD ENGINEER Inactive 06/24/2017 [facility] propofol (ANES) Route: IV, Drug form: INJ, ONCE, Stop date: 06/24/17 15:20:00 NETWORK FIELD ENGINEER Inactive 06/24/2017 [facility] rocuronium (ANES) Route: IV, Drug form: INJ, ONCE, Stop date: 06/24/17 15:15:00 NETWORK FIELD ENGINEER Inactive 06/24/2017 [facility] heparin (ANES) Route: IV, Drug form: INJ, ONCE, Stop date: 06/24/17 15:15:00 NETWORK FIELD ENGINEER Inactive 06/24/2017 [facility] ceFAZolin (ANES) Route: IV, Drug form: INJ, ONCE, Stop date: 06/24/17 14:58:00 NETWORK FIELD ENGINEER Inactive 06/24/2017 [facility] Exparel 20 mL, Route: InFILtration(local), Drug Form: INJ, Dosing Weight 91.364, kg, ONCE, For Hemorrhoidectomy, Start date: 06/24/17 14:41:00 NETWORK FIELD ENGINEER, Stop date: 06/24/17 14:41:00 NETWORK FIELD ENGINEER Inactive 06/24/2017 [facility] Sodium Chloride 0.9% IV (ANES) 1000 mL Route: IV, Total Volume: 1,000, Start date: 06/24/17 14:41:00 NETWORK FIELD ENGINEER, Stop date: 06/24/17 15:41:00 NETWORK FIELD ENGINEER Inactive 06/24/2017 [facility] midazolam (ANES) Route: IV, Drug form: SOLN, ONCE, Stop date: 06/24/17 14:28:00 NETWORK FIELD ENGINEER Inactive 06/24/2017 [facility] fentaNYL (ANES) Route: IV, Drug form: INJ, ONCE, Stop date: 06/24/17 14:28:00 NETWORK FIELD ENGINEER Inactive 06/24/2017 [facility] vancomycin (ANES) 1000 mg Route: IV, Drug form: INJ, Start date: 06/24/17 14:25:00 NETWORK FIELD ENGINEER, Stop date: 06/24/17 15:25:00 NETWORK FIELD ENGINEER Inactive 06/24/2017 [facility] Isolyte S PH 7.4 (ANES) 1000 mL Route: IV, Total Volume: 1,000, Start date: 06/24/17 14:15:00 NETWORK FIELD ENGINEER, Stop date: 06/24/17 15:15:00 NETWORK FIELD ENGINEER Inactive 06/24/2017 [facility] Losartan 100 mg, 2 tab, Route: PO, Drug form: TAB, Daily, Dosing Weight 91.364, kg, Start date: 06/24/17 9:00:00 NETWORK FIELD ENGINEER, Duration: 30 day, Stop date: 07/23/17 9:00:00 CSTNotes: (Same as: Cristiane) No Longer Active 06/24/2017 [facility] Docusate Sodium 50 MG / sennosides, ALF 8.6 MG Oral Tablet 1 tab, Route: PO, Drug Form: TAB, Dosing Weight 91.364, kg, Daily, Start date: 06/24/17 9:00:00 NETWORK FIELD ENGINEER, Duration: 30 day, Stop date: 07/23/17 9:00:00 CSTNotes: (Same as Henna-Paul) Equiv. to Iman-Colace. No Longer Active 06/24/2017 [facility] Amlodipine 10 mg, 1 tab, Route: PO, Drug form: TAB, Daily, Dosing Weight 91.364, kg, Start date: 06/24/17 9:00:00 NETWORK FIELD ENGINEER, Duration: 30 day, Stop date: 07/23/17 9:00:00 CSTNotes: (Same as: Norvasc) No Longer Active 06/24/2017 [facility] Hydrochlorothiazide 25 MG / Losartan Potassium 100 MG Oral Tablet 1 tab, Route: PO, Drug Form: TAB, Dosing Weight 91.364, kg, Daily, Start date: 06/24/17 9:00:00 NETWORK FIELD ENGINEER, Duration: 30 day, Stop date: 07/23/17 9:00:00 NETWORK FIELD ENGINEER Inactive 06/24/2017 [facility] heparin 5,000 unit, 1 mL, Route: SUB-Q, Drug form: INJ, Q12H, Dosing Weight 91.364, kg, Start date: 06/24/17 9:00:00 NETWORK FIELD ENGINEER, Duration: 30 day, Stop date: 07/23/17 21:00:00 CSTNotes: porcine heparin No Longer Active 06/24/2017 [facility] Aspirin 81 mg, 1 tab, Route: PO, Drug form: ECTAB, Daily, Dosing Weight 91.364, kg, Priority: STAT, Start date: 06/23/17 23:12:00 NETWORK FIELD ENGINEER, Duration: 30 day, Stop date: 07/23/17 9:00:00 CSTNotes: Do not crush or chew. (Same As: Ecotrin) No Longer Active 06/24/2017 [facility] Glucagon 1 mg, Route: IM, Drug form: PDR/INJ, PRN, Dosing Weight 91.364, kg, PRN Blood Glucose Results, Start date: 06/23/17 23:00:00 NETWORK FIELD ENGINEER, Duration: 30 day, Stop date: 07/23/17 22:59:00 NETWORK FIELD ENGINEER No Longer Active 06/24/2017 [facility] Dextrose 50% Syringe 12.5 gm, 25 mL, Route: IVP, Drug Form: INJ, Dosing Weight 91.364, kg, PRN, PRN Blood Glucose Results, Start date: 06/23/17 23:00:00 NETWORK FIELD ENGINEER, Duration: 30 day, Stop date: 07/23/17 22:59:00 NETWORK FIELD ENGINEER No Longer Active 06/24/2017 [facility] Insulin Glargine 5 unit, 0.05 mL, Route: SUB-Q, Drug form: SOLN, Daily, Dosing Weight 91.364, kg, Priority: STAT, Start date: 06/23/17 23:00:00 NETWORK FIELD ENGINEER, Duration: 30 day, Stop date: 07/23/17 9:00:00 CSTNotes: Same as: Lantus) Do not hold insulin without contacting prescriber WASTE: F/P - Black; E - Municipal Trash Bin No Longer Active 06/24/2017 [facility] Insulin Lispro 2 unit, 0.02 mL, Route: SUB-Q, Drug form: SOLN, TID-Before Meals, Dosing Weight 91.364, kg, PRN Blood Glucose Results, Start date: 06/23/17 23:00:00 NETWORK FIELD ENGINEER, Duration: 30 day, Stop date: 07/23/17 22:59:0 0 CSTNotes: (Same as: Humalog ) Roll in palms of hands gently; Do not shake `vigorously. "Single Patient Use Only " WASTE: F/P - Black; E - Municipal Trash Bin Stable for 28 days at room temperature. Expires in days from Date No Longer Active 06/24/2017 [facility] Aspirin 325 MG Oral Tablet 325 mg, 1 tab, Route: PO, Drug form: TAB, ONCE, Dosing Weight 91.364, kg, Priority: STAT, Start date: 06/23/17 22:55:00 NETWORK FIELD ENGINEER, Stop date: 06/23/17 22:55:00 CSTNotes: Take with food. Inactive 06/24/2017 [facility] atorvastatin 80 mg, 1 tab, Route: PO, Drug form: TAB, Bedtime, Dosing Weight 91.364, kg, Priority: STAT, Start date: 06/23/17 22:53:00 NETWORK FIELD ENGINEER, Duration: 30 day, Stop date: 07/23/17 21:00:00 CSTNotes: Same as Lipitor No Longer Active 06/24/2017 [facility] Acetaminophen 650 mg, 2 tab, Route: PO, Drug form: TAB, Q4H, Dosing Weight 91.364, kg, PRN Pain 1-3/Temp > 100.4 F, Start date: 06/23/17 22:47:00 NETWORK FIELD ENGINEER, Duration: 30 day, Stop date: 07/23/17 22:46:00 CSTNotes: Do not exceed 4 gm/day. (Same as: Tylenol) No Longer Active 06/24/2017 [facility] Hydralazine Hydrochloride 25 MG Oral Tablet 25 mg, 1 tab, Route: PO, Drug form: TAB, TID, Dosing Weight 91.364, kg, Start date: 06/23/17 17:00:00 NETWORK FIELD ENGINEER, Duration: 30 day, Stop date: 07/23/17 13:00:00 CSTNotes: (Same as: Apresoline) May interfere w/enteral feedings Take With Food. No Longer Active 06/23/2017 [facility] atorvastatin 80 MG Oral Tablet [Lipitor] 80 mg=1 tab, PO, Daily, # 90 tab, 1 Refill(s) No Longer Active 06/23/2017 [facility] Sodium Chloride 0.9% IV 500 mL 500 mL, Rate: 20 ml/hr, Infuse over: 25 hr, Route: IV, Dosing Weight 91.364 kg, Total Volume: 500, Start date: 06/23/17 15:28:00 NETWORK FIELD ENGINEER, Duration: 24 hr, Stop date: 06/24/17 15:27:00 NETWORK FIELD ENGINEER, 2.1, m2 No Longer Active 06/23/2017 [facility] Sodium Chloride 0.9% (Bolus) IV 250 mL, 250 ml/hr, Infuse Over: 1 hr, Route: IV, 250, Drug form: INJ, ONCE, Dosing Weight 91.364 kg, Start date: 06/23/17 15:28:00 NETWORK FIELD ENGINEER, Stop date: 06/23/17 15:28:00 NETWORK FIELD ENGINEER Inactive 06/23/2017 [facility] Acetaminophen 650 mg, 2 tab, Route: PO, Drug form: TAB, Q4H, Dosing Weight 91.364, kg, PRN Pain Score 7-10, Start date: 06/23/17 15:28:00 NETWORK FIELD ENGINEER, Duration: 30 day, Stop date: 07/23/17 15:27:00 CSTNotes: Do not exceed 4 gm/day. (Same as: Tylenol) No Longer Active 06/23/2017 [facility] amLODIPine 10 mg oral tablet 10 mg=1 tab, PO, Daily, 0 Refill(s) No Longer Active 06/23/2017 [facility] simvastatin 20 mg oral tablet 20 mg=1 tab, PO, Bedtime, 0 Refill(s) Inactive 06/23/2017 [facility] Hydrochlorothiazide 25 MG / Losartan Potassium 100 MG Oral Tablet 1 tab, PO, Daily, 0 Refill(s) No Longer Active 06/23/2017 [facility] Hydralazine Hydrochloride 25 MG Oral Tablet 25 mg=1 tab, PO, TID, 0 Refill(s) No Longer Active 06/23/2017 [facility] normal saline 0.9% IV 1,000 mL 1,000 mL, Rate: 100 ml/hr, Infuse over: 10 hr, Route: IV, Dosing Weight 91.364 kg, Total Volume: 1,000, Start date: 06/23/17 8:56:00 NETWORK FIELD ENGINEER, Duration: 30 day, Stop date: 07/23/17 8:55:00 NETWORK FIELD ENGINEER, 2.1, m2 No Longer Active 06/23/2017 [facility] Nitroglycerin 0.4 mg, 1 tab, Route: SL, Drug form: TAB, Q5Min, Dosing Weight 81.818, kg, PRN Chest Pain, Start date: 05/03/15 12:57:00, Duration: 3 doses or times, Stop date: Limited # of timesNotes: (Same as:Cruz finney Nitrostat) "Do Not Crush" Sublingual tablet No Longer Active 05/03/2015 [facility] losartan 100 mg oral tablet 100 mg=1 tab, PO, Daily, 0 Refill(s) Active 05/03/2015 [facility] calcipotriene 0.05 MG/ML Topical Cream 1 appl, TOP, BID, 0 Refill(s) Active 05/03/2015 [facility] Hydralazine Hydrochloride 50 MG Oral Tablet 50 mg=1 tab, PO, QID, 0 Refill(s) Active 05/03/2015 [facility] Amlodipine PO, Daily, 0 Refill(s) Active 05/03/2015 [facility] Aspirin Low Dose 81 mg oral tablet 0 Refill(s) Active 05/03/2015 [facility] Metformin hydrochloride 500 MG Oral Tablet 500 mg=1 tab, PO, BID, 0 Refill(s) Active 05/03/2015 [facility] metoprolol 25 mg oral tablet, extended release 25 mg=1 tab, PO, Daily, 0 Refill(s) Active 05/03/2015 [facility] Fluocinonide 0.5 MG/ML Topical Solution 1 appl, TOP, TID, 0 Refill(s) Active 05/03/2015 [facility] Fluocinolone Acetonide 0.1 MG/ML Topical Oil 1 appl, TOP, TID, 0 Refill(s) Active 05/03/2015 [facility] normal saline 0.9% IV 1,000 mL 1,000 mL, Rate: 100 ml/hr, Infuse over: 10 hr, Route: IV, Total Volume: 1,000, Start date: 05/03/15 6:50:00, Duration: 30 day, Stop date: 06/02/15 6:49:00 No Longer Active 05/03/2015 [facility] Allergies, Adverse Reactions, Alerts Substance Category Reaction Severity Reaction type Status Date Reported Comments Source morphine<sup>1</sup> Assertion Drug allergy Active hallucinations [facility] [place]<sup>2</sup> Assertion Drug allergy Active hallucinations [facility] Tylenol with Codeine #3<sup>3</sup> Assertion Drug allergy Active agitation and confusion [facility] OxyCONTIN<sup>4</sup> Assertion Drug allergy Active hallucinations [facility] Immunizations Immunization Date Given Site Status Last Updated Comments Source pneumococcal 13-valent vaccine 07/07/2017 Right deltoid completed [facility] Results Order Name Results Value Reference Range Date Interpretation Comments Source Bone Density DXA [employer] MA Bone Density DXA [employer] MA MALE BONE DENSITY ASSESSMENT: 03/27/2018 CLINICAL DATA: Z13.820-Screening for osteoporosis S22.060A Closed wedge compression fracture of eighth thoracic vertebra. Z13.820 Encounter For Screening For Osteoporosis, S22.060a Wedge Compression Fracture Of T7-T8 Vertebra, Initial Encounter For Closed Fracture/Z13.820 Encounter For Screening For Osteoporosis, S22.060a Wedge Compression Fracture Of T7-T8 Vertebra RISK FACTORS: Fractures with minimal trauma and previous spine, rib, or hip fractures. FINDINGS: Bone density evaluation was performed 03/27/2018 on the right femur neck using a Hologic unit. The BMD average for the exam is 1.232 g/cm2. The T-score is 2.20 and the Z-score is 3.50. This matches the World Health Organization's criteria for normal bone density and places the patient within normal limits of fracture risk. An additional bone density evaluation was performed 03/27/2018 on the left femur neck using a Hologic unit. The BMD average for the exam is 1.226 g/cm2. The T- score is 2.20 and the Z-score is 3.40. This matches the World Health Organization's criteria for normal bone density and places the patient within normal limits of fracture risk. An additional bone density evaluation was performed 03/27/2018 on the right hip using a Hologic unit. The BMD average for the exam is 1.261 g/cm2. The T-score is 1.50 and the Z-score is 2.30. This matches the World Health Organization's criteria for normal bone density and places the patient within normal limits of fracture risk. An additional bone density evaluation was performed 03/27/2018 on the left hip using a Hologic unit. The BMD average for the exam is 1.332 g/cm2. The T-score is 2.00 and the Z-score is 2.70. This matches the World Health Organization's criteria for normal bone density and places the patient within normal limits of fracture risk. An additional bone density evaluation was performed 03/27/2018 on the AP L1-L3 region of spine using a Hologic unit. The BMD average for the exam is 1.168 g/cm2. This matches the World Health Organization's criteria for normal bone density and places the patient within normal limits of fracture risk. IMPRESSION: BONE DENSITY WITHIN NORMAL LIMITS Patient is at normal risk for fracture. This exam was interpreted at [id number] for ANTHONY Helms 15. Benny Cabrera M.D., cm/marisol:03/27/2018 13:55:14 Floor Associate(s): Sherrell Alegria RT(R)(M), [facility] 03/27/2018 - - Read by: Berlin Rendon MD Dictated Date/time: 03/27/18 13:55 Electronically Signed by: Berlin Rendon MD 03/27/18 13:55 FINAL REPORT [facility] Spine thoracic 2 views DX Spine thoracic 2 views DX EXAM: XR THORACIC SPINE 2 VIEWS DATE: 03/19/2018 9:14 AM CDT INDICATION: - mid back pain COMPARISON: Chest radiograph 10/10/2017 TECHNIQUE: AP and lateral radiographs of the thoracic spine FINDINGS: There is mild exaggeration of the thoracic kyphosis. At T8, there is mild anterior height loss but appears chronic. No other significant vertebral height loss identified. Mild to moderate multilevel degenerative changes seen throughout the thoracic spine. Malleable plate and screws project to the right of midline at the T4 level on the frontal radiograph. Prosthetic heart valve is present. IMPRESSION: Chronic appearing anterior wedge compression deformity at T8 with approximately 10% height loss. 03/19/2018 - - This report was dictated by a Sewer Connector/Fellow. I have personally reviewed the images as well as the Resident's interpretation and agree with the findings. Read by: Femi Mejia MD Resident: Femi Mejia MD Dictated Date/time: 03/19/18 09:57 Electronically Signed by: Colin Morillo MD 03/19/18 10:22 FINAL REPORT [facility] Chest 1 v for Placement DX Chest 1 v for Placement DX EXAM: XR CHEST 1 VIEW DATE: 10/10/2017 12:34 PM CDT INDICATION: Line Placement - Chest 1 view for line placement COMPARISON: 10/08/2017 TECHNIQUE: AP chest FINDINGS: Lines, tubes and hardware: Interval placement of a right-sided PICC line is seen terminating over the SVC. Lungs and pleura: No pulmonary or pleural based abnormality is identified. Heart and mediastinum: The cardiomediastinal silhouette is unchanged. The mediastinal contours are normal. Bones: The osseous structures are unchanged. IMPRESSION: 1. Right-sided PICC line terminating over the SVC. 2. Clear lungs. 10/10/2017 - - Read by: Kyler Cortez MD Dictated Date/time: 10/10/17 14:28 Electronically Signed by: Kyler Cortez MD 10/10/17 14:28 FINAL REPORT [facility] CHEM PANEL Phosphorus 3.8 mg/dL 2.5 - 4.5 10/10/2017 [facility] CHEM PANEL Magnesium Lvl 2.3 mg/dL 1.8 - 2.4 10/10/2017 [facility] ELECTROLYTES AGAP 13.2 meq/L 10.0 - 20.0 10/10/2017 [facility] ELECTROLYTES Creatinine Lvl 0.72 mg/dL 0.50 - 1.40 10/10/2017 [facility] ELECTROLYTES BUN 8 mg/dL 7 - 22 10/10/2017 [facility] ELECTROLYTES Sodium Lvl 137 meq/L 135 - 145 10/10/2017 [facility] ELECTROLYTES Glucose Lvl 117 mg/dL 70 - 99 10/10/2017 [facility] ELECTROLYTES eGFR 93 mL/min/1.73m2 10/10/2017 Result Comment: The eGFR is calculated using the CKD-EPI formula. In most young, healthy individuals the eGFR will be >90 mL/min/1.73m2. The eGFR declines with age. An eGFR of 60-89 may be normal in some populations, particularly the elderly, for whom the CKD-EPI formula has not been extensively validated. Use of the eGFR is not recommended in the following populations: Individuals with unstable creatinine concentrations, including patients and those with serious co-morbid conditions. Patients with extremes in muscle mass or diet. The data above are obtained from the National Kidney Disease Education Program (NKDEP) which additionally recommends that when the eGFR is used in patients with extremes of body mass index for purposes of drug dosing, the eGFR should be multiplied by the estimated BMI. [facility] ELECTROLYTES CO2 26 meq/L 24 - 32 10/10/2017 [facility] ELECTROLYTES Calcium Lvl 9.9 mg/dL 8.5 - 10.5 10/10/2017 [facility] ELECTROLYTES Potassium Lvl 3.2 meq/L 3.5 - 5.1 10/10/2017 [facility] ELECTROLYTES Chloride Lvl 101 meq/L 95 - 109 10/10/2017 [facility] HEMATOLOGY Platelet 127 K/CMM 133 - 450 10/10/2017 [facility] HEMATOLOGY RDW 20.0 % 11.5 - 14.5 10/10/2017 [facility] HEMATOLOGY MPV 8.9 fL 7.4 - 10.4 10/10/2017 [facility] HEMATOLOGY Hct 33.2 % 42.0 - 54.0 10/10/2017 [facility] HEMATOLOGY MCV 72.6 fL 80.0 - 94.0 10/10/2017 [facility] HEMATOLOGY MCHC 31.5 g/dL 32.0 - 36.0 10/10/2017 [facility] HEMATOLOGY MCH 22.9 pg 27.0 - 31.0 10/10/2017 [facility] HEMATOLOGY WBC 4.4 K/CMM 3.7 - 10.4 10/10/2017 [facility] HEMATOLOGY RBC 4.57 M/CMM 4.70 - 6.10 10/10/2017 [facility] HEMATOLOGY Hgb 10.4 g/dL 14.0 - 18.0 10/10/2017 [facility] HEMATOLOGY Microcyte 2+ *ABN* (10/10/17 4:55 AM) None Seen 10/10/2017 [facility] HEMATOLOGY Monocytes # 0.5 K/CMM 0.0 - 0.8 10/10/2017 [facility] HEMATOLOGY Eosinophils # 0.1 K/CMM 0.0 - 0.5 10/10/2017 [facility] HEMATOLOGY Monocytes 11.8 % 2.0 - 12.0 10/10/2017 [facility] HEMATOLOGY Eosinophils 3.4 % 0.0 - 4.0 10/10/2017 [facility] HEMATOLOGY Lymphocytes # 0.7 K/CMM 1.0 - 5.5 10/10/2017 [facility] HEMATOLOGY Basophils 0.6 % 0.0 - 1.0 10/10/2017 [facility] HEMATOLOGY Segs-Bands # 3.0 K/CMM 1.5 - 8.1 10/10/2017 [facility] HEMATOLOGY Segs 67.6 % 45.0 - 75.0 10/10/2017 [facility] HEMATOLOGY Lymphocytes 16.6 % 20.0 - 40.0 10/10/2017 [facility] PARATHYROID PROFILE Ca Ion WB 1.21 mMol/L 1.05 - 1.25 10/10/2017 [facility] PARATHYROID PROFILE Ca Norm WB 1.18 mMol/L 1.05 - 1.25 10/10/2017 [facility] Teeth Complete Full Mouth DX Teeth Complete Full Mouth DX EXAM: XR PANOREX DATE: 10/10/2017 8:13 AM CDT INDICATION: - endocarditis, concern for dental infection COMPARISON: None TECHNIQUE: A single Panorex view of the jaw. DISCUSSION: Evaluation of midline structures is limited by tomographic artifact. There is no mandibular fracture. The temporomandibular joints are well aligned. Multiple teeth are missing. There are erosions throughout the maxillary incisors with large cavity of the right maxillary canine and left mandibular second molar. Extensive alveolar bone resorption is present along the left mandibular body. No periapical lucencies identified. IMPRESSION: 1. Large cavities of the right maxillary canine and left second mandibular molar. 2. No periapical abscess identified. 10/10/2017 - - Read by: Colin Morillo MD Dictated Date/time: 10/10/17 11:14 Electronically Signed by: Colin Morillo MD 10/10/17 12:29 FINAL REPORT [facility] CHEM PANEL Phosphorus 3.7 mg/dL 2.5 - 4.5 10/09/2017 [facility] CHEM PANEL Magnesium Lvl 2.3 mg/dL 1.8 - 2.4 10/09/2017 [facility] ELECTROLYTES AGAP 13.7 meq/L 10.0 - 20.0 10/09/2017 [facility] ELECTROLYTES eGFR 90 mL/min/1.73m2 10/09/2017 Result Comment: The eGFR is calculated using the CKD-EPI formula. In most young, healthy individuals the eGFR will be >90 mL/min/1.73m2. The eGFR declines with age. An eGFR of 60-89 may be normal in some populations, particularly the elderly, for whom the CKD-EPI formula has not been extensively validated. Use of the eGFR is not recommended in the following populations: Individuals with unstable creatinine concentrations, including patients and those with serious co-morbid conditions. Patients with extremes in muscle mass or diet. The data above are obtained from the National Kidney Disease Education Program (NKDEP) which additionally recommends that when the eGFR is used in patients with extremes of body mass index for purposes of drug dosing, the eGFR should be multiplied by the estimated BMI. [facility] ELECTROLYTES Potassium Lvl 3.7 meq/L 3.5 - 5.1 10/09/2017 [facility] ELECTROLYTES Creatinine Lvl 0.78 mg/dL 0.50 - 1.40 10/09/2017 [facility] ELECTROLYTES Sodium Lvl 141 meq/L 135 - 145 10/09/2017 [facility] ELECTROLYTES Chloride Lvl 107 meq/L 95 - 109 10/09/2017 [facility] ELECTROLYTES CO2 24 meq/L 24 - 32 10/09/2017 [facility] ELECTROLYTES Calcium Lvl 8.5 mg/dL 8.5 - 10.5 10/09/2017 [facility] ELECTROLYTES Glucose Lvl 131 mg/dL 70 - 99 10/09/2017 [facility] ELECTROLYTES BUN 13 mg/dL 7 - 22 10/09/2017 [facility] HEMATOLOGY Lymphocytes 18.0 % 20.0 - 40.0 10/09/2017 [facility] HEMATOLOGY Segs 60.0 % 45.0 - 75.0 10/09/2017 [facility] HEMATOLOGY Monocytes 18.0 % 2.0 - 12.0 10/09/2017 [facility] HEMATOLOGY Eosinophils 3.0 % 0.0 - 4.0 10/09/2017 [facility] HEMATOLOGY Basophils 1.0 % 0.0 - 1.0 10/09/2017 [facility] HEMATOLOGY Microcyte 2+ *ABN* (10/09/17 4:06 AM) None Seen 10/09/2017 [facility] HEMATOLOGY Segs-Bands # 2.0 K/CMM 1.5 - 8.1 10/09/2017 [facility] HEMATOLOGY Monocytes # 0.6 K/CMM 0.0 - 0.8 10/09/2017 [facility] HEMATOLOGY Eosinophils # 0.1 K/CMM 0.0 - 0.5 10/09/2017 [facility] HEMATOLOGY Lymphocytes # 0.6 K/CMM 1.0 - 5.5 10/09/2017 [facility] HEMATOLOGY Plt Morph Normal (10/09/17 4:06 AM) 10/09/2017 [facility] HEMATOLOGY WBC 3.3 K/CMM 3.7 - 10.4 10/09/2017 [facility] HEMATOLOGY RBC 4.34 M/CMM 4.70 - 6.10 10/09/2017 [facility] HEMATOLOGY RDW 20.3 % 11.5 - 14.5 10/09/2017 [facility] HEMATOLOGY Platelet 99 K/CMM 133 - 450 10/09/2017 [facility] HEMATOLOGY MPV 9.7 fL 7.4 - 10.4 10/09/2017 [facility] HEMATOLOGY Hct 31.6 % 42.0 - 54.0 10/09/2017 [facility] HEMATOLOGY MCH 23.0 pg 27.0 - 31.0 10/09/2017 [facility] HEMATOLOGY Hgb 10.0 g/dL 14.0 - 18.0 10/09/2017 [facility] HEMATOLOGY MCV 72.9 fL 80.0 - 94.0 10/09/2017 [facility] HEMATOLOGY MCHC 31.5 g/dL 32.0 - 36.0 10/09/2017 [facility] PARATHYROID PROFILE Ca Norm WB 1.12 mMol/L 1.05 - 1.25 10/09/2017 [facility] PARATHYROID PROFILE Ca Ion WB 1.13 mMol/L 1.05 - 1.25 10/09/2017 [facility] Chest 1 v for Placement DX Chest 1 v for Placement DX EXAM: XR CHEST 1 VIEW DATE: 10/08/2017 at 2029 hours INDICATION: Line Placement - Status post PPM/ICD Implantation COMPARISON: October 04, 2017 TECHNIQUE: AP chest FINDINGS: Lines and tubes: Since the prior exam, the ICD/pacemaker device has been removed. Lungs and pleura: The lung volumes are low but the lungs are clear without consolidation. No effusions are seen. Heart and mediastinum: The cardiomediastinal silhouette is stable. Bones: No acute bony abnormality is identified. IMPRESSION: No acute cardiopulmonary abnormality. Interval removal of pacemaker/ICD device. 10/08/2017 - - Read by: July Rosas MD Dictated Date/time: 10/08/17 21:52 Electronically Signed by: July Rosas MD 10/08/17 21:53 FINAL REPORT [facility] TOXICOLOGY Vanco Tr TND 0800 10/08/2017 [facility] TOXICOLOGY Vanco Tr 8.6 ug/ml 10/08/2017 Result Comment: Specimen Slightly Hemolyzed. [facility] CHEM PANEL Magnesium Lvl 2.4 mg/dL 1.8 - 2.4 10/08/2017 [facility] CHEM PANEL Phosphorus 3.0 mg/dL 2.5 - 4.5 10/08/2017 [facility] ELECTROLYTES AGAP 12.5 meq/L 10.0 - 20.0 10/08/2017 [facility] ELECTROLYTES eGFR 95 mL/min/1.73m2 10/08/2017 Result Comment: The eGFR is calculated using the CKD-EPI formula. In most young, healthy individuals the eGFR will be >90 mL/min/1.73m2. The eGFR declines with age. An eGFR of 60-89 may be normal in some populations, particularly the elderly, for whom the CKD-EPI formula has not been extensively validated. Use of the eGFR is not recommended in the following populations: Individuals with unstable creatinine concentrations, including patients and those with serious co-morbid conditions. Patients with extremes in muscle mass or diet. The data above are obtained from the National Kidney Disease Education Program (NKDEP) which additionally recommends that when the eGFR is used in patients with extremes of body mass index for purposes of drug dosing, the eGFR should be multiplied by the estimated BMI. [facility] ELECTROLYTES Creatinine Lvl 0.70 mg/dL 0.50 - 1.40 10/08/2017 [facility] ELECTROLYTES Potassium Lvl 4.5 meq/L 3.5 - 5.1 10/08/2017 [facility] ELECTROLYTES Sodium Lvl 139 meq/L 135 - 145 10/08/2017 [facility] ELECTROLYTES Calcium Lvl 8.8 mg/dL 8.5 - 10.5 10/08/2017 [facility] ELECTROLYTES CO2 24 meq/L 24 - 32 10/08/2017 [facility] ELECTROLYTES Chloride Lvl 107 meq/L 95 - 109 10/08/2017 [facility] ELECTROLYTES Glucose Lvl 119 mg/dL 70 - 99 10/08/2017 [facility] ELECTROLYTES BUN 12 mg/dL 7 - 22 10/08/2017 [facility] HEMATOLOGY Large Plt Occasional 10/08/2017 [facility] HEMATOLOGY Lymphocytes # 0.6 K/CMM 1.0 - 5.5 10/08/2017 [facility] HEMATOLOGY Segs-Bands # 2.8 K/CMM 1.5 - 8.1 10/08/2017 [facility] HEMATOLOGY Basophils 0.6 % 0.0 - 1.0 10/08/2017 [facility] HEMATOLOGY Eosinophils 3.5 % 0.0 - 4.0 10/08/2017 [facility] HEMATOLOGY Eosinophils # 0.1 K/CMM 0.0 - 0.5 10/08/2017 [facility] HEMATOLOGY Monocytes # 0.6 K/CMM 0.0 - 0.8 10/08/2017 [facility] HEMATOLOGY Monocytes 14.7 % 2.0 - 12.0 10/08/2017 [facility] HEMATOLOGY Microcyte 2+ *ABN* (10/08/17 4:26 AM) None Seen 10/08/2017 [facility] HEMATOLOGY Segs 67.6 % 45.0 - 75.0 10/08/2017 [facility] HEMATOLOGY Plt Morph See Note 1 (10/08/17 4:26 AM) 10/08/2017 Result Comment: Fibrin strands present. [facility] HEMATOLOGY Lymphocytes 13.6 % 20.0 - 40.0 10/08/2017 [facility] HEMATOLOGY MPV 9.7 fL 7.4 - 10.4 10/08/2017 [facility] HEMATOLOGY Platelet 71 K/CMM 133 - 450 10/08/2017 [facility] HEMATOLOGY MCHC 31.3 g/dL 32.0 - 36.0 10/08/2017 [facility] HEMATOLOGY MCH 22.9 pg 27.0 - 31.0 10/08/2017 [facility] HEMATOLOGY RDW 20.2 % 11.5 - 14.5 10/08/2017 [facility] HEMATOLOGY Hgb 10.5 g/dL 14.0 - 18.0 10/08/2017 [facility] HEMATOLOGY RBC 4.59 M/CMM 4.70 - 6.10 10/08/2017 [facility] HEMATOLOGY WBC 4.1 K/CMM 3.7 - 10.4 10/08/2017 [facility] HEMATOLOGY Hct 33.7 % 42.0 - 54.0 10/08/2017 [facility] HEMATOLOGY MCV 73.4 fL 80.0 - 94.0 10/08/2017 [facility] PARATHYROID PROFILE Ca Norm WB 1.10 mMol/L 1.05 - 1.25 10/08/2017 [facility] PARATHYROID PROFILE Ca Ion WB 1.10 mMol/L 1.05 - 1.25 10/08/2017 [facility] HEMATOLOGY RBC Morph Normal (10/07/17 12:19 AM) 10/07/2017 [facility] HEMATOLOGY Plt Morph Normal (10/07/17 12:19 AM) 10/07/2017 [facility] Brain wo contrast CT Brain wo contrast CT EXAM: CT BRAIN WITHOUT CONTRAST INDICATION: - ?embolic phenomena from vegetation in atrial lead of pacemaker. COMPARISON: None TECHNIQUE: Routine axial CT images of the brain were obtained. DISCUSSION: No intracranial hemorrhage or mass effect. No acute infarction. No hydrocephalus. Focus of gliosis in the left superior frontal gyrus. Microangiopathic changes and generalized parenchymal volume loss are present. Calvarium is intact. Paranasal sinuses are clear. IMPRESSION: No acute intracranial abnormality. 10/06/2017 - - Read by: Gina Alfonso MD Dictated Date/time: 10/06/17 23:00 Electronically Signed by: Gina Alfonso MD 10/06/17 23:02 FINAL REPORT [facility] ANEMIA STUDY Ferritin Lvl 99 ng/mL 22 - 275 10/06/2017 [facility] ANEMIA STUDY % Satur Fe 3 % 12 - 57 10/06/2017 [facility] ANEMIA STUDY UIBC 368 ug/dl 110 - 370 10/06/2017 [facility] ANEMIA STUDY TIBC 380 ug/dl 228 - 428 10/06/2017 [facility] ANEMIA STUDY Iron 12 ug/dl 45 - 160 10/06/2017 [facility] CHEM PANEL Globulin 4.3 g/dL 2.7 - 4.2 10/06/2017 [facility] CHEM PANEL A/G Ratio 0.8 0.7 - 1.6 10/06/2017 [facility] CHEM PANEL Total Protein 7.6 g/dL 6.4 - 8.4 10/06/2017 [facility] CHEM PANEL Bili Total 2.7 mg/dL 0.2 - 1.3 10/06/2017 [facility] CHEM PANEL Albumin Lvl 3.3 g/dL 3.5 - 5.0 10/06/2017 [facility] CHEM PANEL ALT 38 unit/L 0 - 65 10/06/2017 [facility] CHEM PANEL Bili Direct 0.2 mg/dL 0.0 - 0.3 10/06/2017 [facility] CHEM PANEL Bili Indirect 2.5 mg/dL 0.0 - 1.0 10/06/2017 [facility] CHEM PANEL Alk Phos 89 unit/L 39 - 136 10/06/2017 [facility] CHEM PANEL AST 26 unit/L 0 - 37 10/06/2017 [facility] CHEM PANEL LDH 281 unit/L 98 - 192 10/06/2017 [facility] HEMATOLOGY Retic Auto 1.3 % 0.5 - 1.5 10/06/2017 [facility] HEMATOLOGY PB Smear Path Peripheral blood smear shows microcytic hypochromic anemia with anisopoikilocytsosis, a occasional elliptocytes, no increase in schistocytes, slight polychromasia; moderate thrombocytopenia, few large platelets, no platelets clumps seen.Impression: (1) no evidence of microangiopathic hemolysis, (2) RBC morphology is sugestive of iron deficiency anemia.CPT: [id number] 10/06/2017 [facility] IMMUNOLOGY Haptoglobin 189 mg/dL 16 - 200 10/06/2017 [facility] ANEMIA STUDY Iron 13 ug/dl 45 - 160 10/06/2017 [facility] ANEMIA STUDY % Satur Fe 4 % 12 - 57 10/06/2017 [facility] ANEMIA STUDY TIBC 304 ug/dl 228 - 428 10/06/2017 [facility] ANEMIA STUDY UIBC 291 ug/dl 110 - 370 10/06/2017 [facility] CHEM PANEL Alk Phos 75 unit/L 39 - 136 10/06/2017 [facility] CHEM PANEL AST 32 unit/L 0 - 37 10/06/2017 [facility] CHEM PANEL Bili Total 2.7 mg/dL 0.2 - 1.3 10/06/2017 [facility] CHEM PANEL Total Protein 7.2 g/dL 6.4 - 8.4 10/06/2017 [facility] CHEM PANEL ALT 38 unit/L 0 - 65 10/06/2017 [facility] CHEM PANEL Albumin Lvl 3.2 g/dL 3.5 - 5.0 10/06/2017 [facility] CHEM PANEL Globulin 4.0 g/dL 2.7 - 4.2 10/06/2017 [facility] CHEM PANEL B/C Ratio 13 6 - 25 10/06/2017 [facility] CHEM PANEL A/G Ratio 0.8 0.7 - 1.6 10/06/2017 [facility] CARDIAC ENZYMES Troponin-T null 0.000 - 0.100 10/05/2017 [facility] CARDIAC ENZYMES Total CK 57 unit/L 12 - 191 10/05/2017 [facility] CARDIAC ENZYMES Troponin-I null 0.00 - 0.40 10/05/2017 [facility] CARDIAC ENZYMES Troponin-T null 0.000 - 0.100 10/05/2017 [facility] CARDIAC ENZYMES Total CK 54 unit/L 12 - 191 10/05/2017 [facility] CARDIAC ENZYMES Troponin-I null 0.00 - 0.40 10/05/2017 [facility] CHEM PANEL Procalcitonin Lvl 0.66 ng/mL 0.00 - 0.10 10/05/2017 [facility] CHEM PANEL Procalcitonin Lvl 0.37 ng/mL 0.00 - 0.10 10/05/2017 [facility] HEMATOLOGY Sed Rate 9 mm/h 0 - 15 10/05/2017 [facility] IMMUNOLOGY C-REACTIVE PROTEIN 15.9 mg/L <=2.9 mg/L 10/05/2017 [facility] URINE AND STOOL UA Blood Negative (10/04/17 8:05 PM) Negative 10/05/2017 [facility] URINE AND STOOL UA Nitrite Negative (10/04/17 8:05 PM) Negative 10/05/2017 [facility] URINE AND STOOL UA Urobilinogen 0.2 EU/dL 0.1 - 1.0 10/05/2017 [facility] URINE AND STOOL UA Bili Negative *NA* (10/04/17 8:05 PM) Negative 10/05/2017 [facility] URINE AND STOOL UA Leuk Est Negative (10/04/17 8:05 PM) Negative 10/05/2017 [facility] URINE AND STOOL UA Color Yellow *NA* (10/04/17 8:05 PM) Yellow 10/05/2017 [facility] URINE AND STOOL UA Turbidity Clear (10/04/17 8:05 PM) Clear 10/05/2017 [facility] URINE AND STOOL UA Ketones Negative mg/dL Negative mg/dL 10/05/2017 [facility] URINE AND STOOL UA Protein Negative mg/dL Negative mg/dL 10/05/2017 [facility] URINE AND STOOL UA Glucose Negative mg/dL Negative mg/dL 10/05/2017 [facility] URINE AND STOOL UA Spec Grav 1.015 <=1.030 10/05/2017 [facility] URINE AND STOOL UA pH 8.0 5.0 - 8.0 10/05/2017 [facility] URINE AND STOOL UA RBC Occasional 10/05/2017 [facility] URINE AND STOOL UA WBC None Seen (10/04/17 8:05 PM) None Seen 10/05/2017 [facility] URINE AND STOOL UA Sq Epi Rare /LPF Few /LPF 10/05/2017 [facility] CARDIAC ENZYMES Troponin-I null 0.00 - 0.40 10/04/2017 [facility] Chest 1view DX Chest 1view DX EXAM: XR CHEST 1 VIEW DATE: 10/04/2017 at 1727 hours INDICATION: weakness COMPARISON: Chest radiograph 07/18/2017 TECHNIQUE: AP chest FINDINGS: Lines, tubes and hardware: Left subclavian approach dual-lead pacer has leads overlying the right atrium, and additional lead extending towards the right ventricle, unchanged, although with the second lead tip projecting below the field of view of this study. Mediastinal plate and adjacent surgical clips are unchanged. Lungs and pleura: No pulmonary or pleural based abnormality is identified. Pulmonary vascularity is normal. Heart and mediastinum: The heart size is normal for technique. The mediastinal contours are normal. Bones: No acute bony abnormality is identified. IMPRESSION: No acute cardiopulmonary abnormality. 10/04/2017 - - This report was dictated by a Sewer Connector/Fellow. I have personally reviewed the images as well as the Resident's interpretation and agree with the findings. Read by: Britton Skelton MD Resident: Britton Skelton MD Dictated Date/time: 10/04/17 17:44 Electronically Signed by: Ashley Serrano MD 10/04/17 17:55 FINAL REPORT [facility] CHEM PANEL Magnesium Lvl 2.2 mg/dL 1.8 - 2.4 07/23/2017 [facility] CHEM PANEL Phosphorus 4.2 mg/dL 2.5 - 4.5 07/23/2017 [facility] ELECTROLYTES AGAP 12.9 meq/L 10.0 - 20.0 07/23/2017 [facility] ELECTROLYTES eGFR 93 mL/min/1.73m2 07/23/2017 Result Comment: The eGFR is calculated using the CKD-EPI formula. In most young, healthy individuals the eGFR will be >90 mL/min/1.73m2. The eGFR declines with age. An eGFR of 60-89 may be normal in some populations, particularly the elderly, for whom the CKD-EPI formula has not been extensively validated. Use of the eGFR is not recommended in the following populations: Individuals with unstable creatinine concentrations, including patients and those with serious co-morbid conditions. Patients with extremes in muscle mass or diet. The data above are obtained from the National Kidney Disease Education Program (NKDEP) which additionally recommends that when the eGFR is used in patients with extremes of body mass index for purposes of drug dosing, the eGFR should be multiplied by the estimated BMI. [facility] ELECTROLYTES Calcium Lvl 9.0 mg/dL 8.5 - 10.5 07/23/2017 [facility] ELECTROLYTES Glucose Lvl 91 mg/dL 70 - 99 07/23/2017 [facility] ELECTROLYTES CO2 25 meq/L 24 - 32 07/23/2017 [facility] ELECTROLYTES Creatinine Lvl 0.73 mg/dL 0.50 - 1.40 07/23/2017 [facility] ELECTROLYTES BUN 7 mg/dL 7 - 22 07/23/2017 [facility] ELECTROLYTES Potassium Lvl 3.9 meq/L 3.5 - 5.1 07/23/2017 [facility] ELECTROLYTES Sodium Lvl 142 meq/L 135 - 145 07/23/2017 [facility] ELECTROLYTES Chloride Lvl 108 meq/L 95 - 109 07/23/2017 [facility] HEMATOLOGY RDW 16.4 % 11.5 - 14.5 07/23/2017 [facility] HEMATOLOGY MCHC 33.4 g/dL 32.0 - 36.0 07/23/2017 [facility] HEMATOLOGY Platelet 128 K/CMM 133 - 450 07/23/2017 [facility] HEMATOLOGY MPV 8.4 fL 7.4 - 10.4 07/23/2017 [facility] HEMATOLOGY MCH 29.4 pg 27.0 - 31.0 07/23/2017 [facility] HEMATOLOGY WBC 4.6 K/CMM 3.7 - 10.4 07/23/2017 [facility] HEMATOLOGY Hgb 8.3 g/dL 14.0 - 18.0 07/23/2017 [facility] HEMATOLOGY RBC 2.82 M/CMM 4.70 - 6.10 07/23/2017 [facility] HEMATOLOGY Hct 24.9 % 42.0 - 54.0 07/23/2017 [facility] HEMATOLOGY MCV 88.1 fL 80.0 - 94.0 07/23/2017 [facility] HEMATOLOGY INR 1.09 0.85 - 1.17 07/23/2017 [facility] HEMATOLOGY PTT 32.4 s 22.9 - 35.8 07/23/2017 [facility] HEMATOLOGY PT 14.1 s 12.0 - 14.7 07/23/2017 [facility] HEMATOLOGY Eosinophils # 0.2 K/CMM 0.0 - 0.5 07/23/2017 [facility] HEMATOLOGY Lymphocytes # 0.9 K/CMM 1.0 - 5.5 07/23/2017 [facility] HEMATOLOGY Monocytes # 0.4 K/CMM 0.0 - 0.8 07/23/2017 [facility] HEMATOLOGY Lymphocytes 19.6 % 20.0 - 40.0 07/23/2017 [facility] HEMATOLOGY Segs 65.8 % 45.0 - 75.0 07/23/2017 [facility] HEMATOLOGY Segs-Bands # 3.0 K/CMM 1.5 - 8.1 07/23/2017 [facility] HEMATOLOGY Basophils 0.9 % 0.0 - 1.0 07/23/2017 [facility] HEMATOLOGY Eosinophils 5.2 % 0.0 - 4.0 07/23/2017 [facility] HEMATOLOGY Monocytes 8.5 % 2.0 - 12.0 07/23/2017 [facility] PARATHYROID PROFILE Ca Ion WB 1.17 mMol/L 1.05 - 1.25 07/23/2017 [facility] PARATHYROID PROFILE Ca Norm WB 1.21 mMol/L 1.05 - 1.25 07/23/2017 [facility] HEMATOLOGY Hct 24.2 % 42.0 - 54.0 07/22/2017 [facility] HEMATOLOGY MCHC 33.2 g/dL 32.0 - 36.0 07/22/2017 [facility] HEMATOLOGY MCH 29.3 pg 27.0 - 31.0 07/22/2017 [facility] HEMATOLOGY MCV 88.2 fL 80.0 - 94.0 07/22/2017 [facility] HEMATOLOGY RDW 16.5 % 11.5 - 14.5 07/22/2017 [facility] HEMATOLOGY MPV 8.5 fL 7.4 - 10.4 07/22/2017 [facility] HEMATOLOGY Platelet 125 K/CMM 133 - 450 07/22/2017 [facility] HEMATOLOGY Hgb 8.0 g/dL 14.0 - 18.0 07/22/2017 [facility] HEMATOLOGY RBC 2.74 M/CMM 4.70 - 6.10 07/22/2017 [facility] HEMATOLOGY WBC 4.7 K/CMM 3.7 - 10.4 07/22/2017 [facility] HEMATOLOGY Eosinophils # 0.2 K/CMM 0.0 - 0.5 07/22/2017 [facility] HEMATOLOGY Lymphocytes 18.6 % 20.0 - 40.0 07/22/2017 [facility] HEMATOLOGY Monocytes 10.3 % 2.0 - 12.0 07/22/2017 [facility] HEMATOLOGY Segs 66.2 % 45.0 - 75.0 07/22/2017 [facility] HEMATOLOGY Segs-Bands # 3.1 K/CMM 1.5 - 8.1 07/22/2017 [facility] HEMATOLOGY Lymphocytes # 0.9 K/CMM 1.0 - 5.5 07/22/2017 [facility] HEMATOLOGY Monocytes # 0.5 K/CMM 0.0 - 0.8 07/22/2017 [facility] HEMATOLOGY Eosinophils 4.1 % 0.0 - 4.0 07/22/2017 [facility] HEMATOLOGY Basophils 0.8 % 0.0 - 1.0 07/22/2017 [facility] CHEM PANEL Magnesium Lvl 2.2 mg/dL 1.8 - 2.4 07/22/2017 [facility] CHEM PANEL Phosphorus 4.5 mg/dL 2.5 - 4.5 07/22/2017 [facility] ELECTROLYTES AGAP 11.9 meq/L 10.0 - 20.0 07/22/2017 [facility] ELECTROLYTES eGFR 95 mL/min/1.73m2 07/22/2017 Result Comment: The eGFR is calculated using the CKD-EPI formula. In most young, healthy individuals the eGFR will be >90 mL/min/1.73m2. The eGFR declines with age. An eGFR of 60-89 may be normal in some populations, particularly the elderly, for whom the CKD-EPI formula has not been extensively validated. Use of the eGFR is not recommended in the following populations: Individuals with unstable creatinine concentrations, including patients and those with serious co-morbid conditions. Patients with extremes in muscle mass or diet. The data above are obtained from the National Kidney Disease Education Program (NKDEP) which additionally recommends that when the eGFR is used in patients with extremes of body mass index for purposes of drug dosing, the eGFR should be multiplied by the estimated BMI. [facility] ELECTROLYTES BUN 5 mg/dL 7 - 22 07/22/2017 [facility] ELECTROLYTES Glucose Lvl 85 mg/dL 70 - 99 07/22/2017 [facility] ELECTROLYTES Potassium Lvl 3.9 meq/L 3.5 - 5.1 07/22/2017 [facility] ELECTROLYTES CO2 26 meq/L 24 - 32 07/22/2017 [facility] ELECTROLYTES Sodium Lvl 143 meq/L 135 - 145 07/22/2017 [facility] ELECTROLYTES Chloride Lvl 109 meq/L 95 - 109 07/22/2017 [facility] ELECTROLYTES Creatinine Lvl 0.69 mg/dL 0.50 - 1.40 07/22/2017 [facility] ELECTROLYTES Calcium Lvl 8.7 mg/dL 8.5 - 10.5 07/22/2017 [facility] HEMATOLOGY Segs 64.6 % 45.0 - 75.0 07/22/2017 [facility] [facility] HEMATOLOGY Segs-Bands # 3.3 K/CMM 1.5 - 8.1 07/22/2017 [facility] HEMATOLOGY Basophils 0.7 % 0.0 - 1.0 07/22/2017 [facility] HEMATOLOGY Lymphocytes 21.4 % 20.0 - 40.0 07/22/2017 [facility] HEMATOLOGY Monocytes # 0.5 K/CMM 0.0 - 0.8 07/22/2017 [facility] HEMATOLOGY Eosinophils # 0.2 K/CMM 0.0 - 0.5 07/22/2017 [facility] HEMATOLOGY Eosinophils 4.3 % 0.0 - 4.0 07/22/2017 [facility] HEMATOLOGY Monocytes 9.0 % 2.0 - 12.0 07/22/2017 [facility] HEMATOLOGY Lymphocytes # 1.1 K/CMM 1.0 - 5.5 07/22/2017 [facility] HEMATOLOGY INR 1.21 0.85 - 1.17 07/22/2017 [facility] HEMATOLOGY PT 15.4 s 12.0 - 14.7 07/22/2017 [facility] HEMATOLOGY RBC 2.66 M/CMM 4.70 - 6.10 07/22/2017 [facility] HEMATOLOGY WBC 5.1 K/CMM 3.7 - 10.4 07/22/2017 [facility] HEMATOLOGY MCHC 33.8 g/dL 32.0 - 36.0 07/22/2017 [facility] HEMATOLOGY RDW 16.3 % 11.5 - 14.5 07/22/2017 [facility] HEMATOLOGY Platelet 113 K/CMM 133 - 450 07/22/2017 [facility] HEMATOLOGY Hgb 7.8 g/dL 14.0 - 18.0 07/22/2017 [facility] HEMATOLOGY Hct 23.2 % 42.0 - 54.0 07/22/2017 [facility] HEMATOLOGY MCH 29.5 pg 27.0 - 31.0 07/22/2017 [facility] HEMATOLOGY MCV 87.2 fL 80.0 - 94.0 07/22/2017 [facility] HEMATOLOGY MPV 8.5 fL 7.4 - 10.4 07/22/2017 [facility] PARATHYROID PROFILE Ca Norm WB 1.21 mMol/L 1.05 - 1.25 07/22/2017 [facility] PARATHYROID PROFILE Ca Ion WB 1.21 mMol/L 1.05 - 1.25 07/22/2017 [facility] CHEM PANEL Phosphorus 3.6 mg/dL 2.5 - 4.5 07/21/2017 [facility] CHEM PANEL eGFR 91 mL/min/1.73m2 07/21/2017 Result Comment: The eGFR is calculated using the CKD-EPI formula. In most young, healthy individuals the eGFR will be >90 mL/min/1.73m2. The eGFR declines with age. An eGFR of 60-89 may be normal in some populations, particularly the elderly, for whom the CKD-EPI formula has not been extensively validated. Use of the eGFR is not recommended in the following populations: Individuals with unstable creatinine concentrations, including patients and those with serious co-morbid conditions. Patients with extremes in muscle mass or diet. The data above are obtained from the National Kidney Disease Education Program (NKDEP) which additionally recommends that when the eGFR is used in patients with extremes of body mass index for purposes of drug dosing, the eGFR should be multiplied by the estimated BMI. [facility] CHEM PANEL Calcium Lvl 8.6 mg/dL 8.5 - 10.5 07/21/2017 [facility] CHEM PANEL CO2 25 meq/L 24 - 32 07/21/2017 [facility] CHEM PANEL Chloride Lvl 108 meq/L 95 - 109 07/21/2017 [facility] CHEM PANEL Potassium Lvl 3.5 meq/L 3.5 - 5.1 07/21/2017 [facility] CHEM PANEL Sodium Lvl 142 meq/L 135 - 145 07/21/2017 [facility] CHEM PANEL Creatinine Lvl 0.76 mg/dL 0.50 - 1.40 07/21/2017 [facility] CHEM PANEL BUN 8 mg/dL 7 - 22 07/21/2017 [facility] CHEM PANEL Glucose Lvl 102 mg/dL 70 - 99 07/21/2017 [facility] CHEM PANEL AGAP 12.5 meq/L 10.0 - 20.0 07/21/2017 [facility] CHEM PANEL Magnesium Lvl 2.0 mg/dL 1.8 - 2.4 07/21/2017 [facility] PARATHYROID PROFILE Ca Norm WB 1.14 mMol/L 1.05 - 1.25 07/21/2017 [facility] PARATHYROID PROFILE Ca Ion WB 1.14 mMol/L 1.05 - 1.25 07/21/2017 [facility] BLOOD BANK RESULTS ABO/Rh O POS 07/20/2017 [facility] BLOOD BANK RESULTS Antibody Scrn Negative (07/20/17 3:00 AM) 07/20/2017 [facility] BLOOD BANK RESULTS RBC product Product available (07/19/17 2:02 PM) 07/19/2017 [facility] BLOOD BANK RESULTS RBC product Product available (07/19/17 2:01 PM) 07/19/2017 [facility] BLOOD BANK RESULTS RBC product Product available (07/18/17 9:34 AM) 07/18/2017 [facility] Chest 1view DX Chest 1view DX EXAM: XR CHEST 1 VIEW DATE: 07/18/2017 1:13 AM NETWORK FIELD ENGINEER INDICATION: - pulm edema? COMPARISON: Chest radiograph 07/07/2017 TECHNIQUE: AP chest FINDINGS: Lines, tubes and hardware: Left left chest pacemaker with leads in the right atrium and right ventricle. Reconstruction plate overlies the mediastinum. Lungs and pleura: Unchanged right basilar subsegmental atelectasis and asymmetric elevation of the right hemidiaphragm. No acute pulmonary or pleural based abnormality is identified. Pulmonary vascularity is normal. Heart and mediastinum: The heart size is normal for technique. The thoracic aorta is tortuous. Bones: No acute bony abnormality is identified. IMPRESSION: No acute cardiopulmonary abnormality. [place] SECTION: ER 07/18/2017 - - This report was dictated by a Sewer Connector/Fellow. I have personally reviewed the images as well as the Resident's interpretation and agree with the findings. Read by: Don Cardenas MD Resident: Don Cardenas MD Dictated Date/time: 07/18/17 02:56 Electronically Signed by: Woodrow Parks MD 07/18/17 03:06 FINAL REPORT [facility] BLOOD BANK RESULTS Antibody Scrn Negative (07/17/17 3:48 PM) 07/17/2017 [facility] BLOOD BANK RESULTS ABO/Rh O POS 07/17/2017 [facility] HEMATOLOGY PT 13.3 s 12.0 - 14.7 07/17/2017 [facility] HEMATOLOGY PTT 33.1 s 22.9 - 35.8 07/17/2017 [facility] HEMATOLOGY INR 1.01 0.85 - 1.17 07/17/2017 [facility] Chest 1view DX Chest 1view DX EXAM: XR CHEST 1 VIEW DATE: 07/07/2017 1013 hours INDICATION: Tube placement/removal/reposition - Postop COMPARISON: Comparison is made to 07/05/2017 TECHNIQUE: AP chest, upright. FINDINGS: Lines, tubes and hardware: Unchanged location of dual-lead pacemaker with its leads over the right atrium and right ventricle. Lungs and pleura: There are right base subsegmental atelectasis with persistent elevation of the right hemidiaphragm. No focal opacity, pleural effusion or pneumothorax is present. Heart and mediastinum: The cardiomediastinal silhouette is unchanged. Bones: No acute change. IMPRESSION: 1. No significant interval change compared to the prior study. 07/07/2017 - - This report was dictated by a Sewer Connector/Fellow. I have personally reviewed the images as well as the Resident's interpretation and agree with the findings. Read by: Kiko Valle MD Resident: Kiko Valle MD Dictated Date/time: 07/07/17 11:40 Electronically Signed by: Kyler Cortez MD 07/07/17 13:48 FINAL REPORT [facility] CHEM PANEL eGFR 86 mL/min/1.73m2 07/07/2017 Result Comment: The eGFR is calculated using the CKD-EPI formula. In most young, healthy individuals the eGFR will be >90 mL/min/1.73m2. The eGFR declines with age. An eGFR of 60-89 may be normal in some populations, particularly the elderly, for whom the CKD-EPI formula has not been extensively validated. Use of the eGFR is not recommended in the following populations: Individuals with unstable creatinine concentrations, including patients and those with serious co-morbid conditions. Patients with extremes in muscle mass or diet. The data above are obtained from the National Kidney Disease Education Program (NKDEP) which additionally recommends that when the eGFR is used in patients with extremes of body mass index for purposes of drug dosing, the eGFR should be multiplied by the estimated BMI. [facility] CHEM PANEL Calcium Lvl 9.2 mg/dL 8.5 - 10.5 07/07/2017 [facility] CHEM PANEL CO2 27 meq/L 24 - 32 07/07/2017 [facility] CHEM PANEL Sodium Lvl 138 meq/L 135 - 145 07/07/2017 [facility] CHEM PANEL Creatinine Lvl 0.87 mg/dL 0.50 - 1.40 07/07/2017 [facility] CHEM PANEL Glucose Lvl 102 mg/dL 70 - 99 07/07/2017 [facility] CHEM PANEL BUN 19 mg/dL 7 - 22 07/07/2017 [facility] CHEM PANEL Potassium Lvl 3.7 meq/L 3.5 - 5.1 07/07/2017 [facility] CHEM PANEL Chloride Lvl 102 meq/L 95 - 109 07/07/2017 [facility] CHEM PANEL AGAP 12.7 meq/L 10.0 - 20.0 07/07/2017 [facility] CHEM PANEL Magnesium Lvl 2.3 mg/dL 1.8 - 2.4 07/07/2017 [facility] HEMATOLOGY MPV 8.2 fL 7.4 - 10.4 07/07/2017 [facility] HEMATOLOGY Hct 29.6 % 42.0 - 54.0 07/07/2017 [facility] HEMATOLOGY MCV 84.3 fL 80.0 - 94.0 07/07/2017 [facility] HEMATOLOGY MCH 28.8 pg 27.0 - 31.0 07/07/2017 [facility] HEMATOLOGY MCHC 34.2 g/dL 32.0 - 36.0 07/07/2017 [facility] HEMATOLOGY Hgb 10.1 g/dL 14.0 - 18.0 07/07/2017 [facility] HEMATOLOGY RDW 17.6 % 11.5 - 14.5 07/07/2017 [facility] HEMATOLOGY Platelet 235 K/CMM 133 - 450 07/07/2017 [facility] HEMATOLOGY WBC 9.4 K/CMM 3.7 - 10.4 07/07/2017 [facility] HEMATOLOGY RBC 3.51 M/CMM 4.70 - 6.10 07/07/2017 [facility] HEMATOLOGY Lymphocytes 13.3 % 20.0 - 40.0 07/07/2017 [facility] HEMATOLOGY Segs 74.9 % 45.0 - 75.0 07/07/2017 [facility] HEMATOLOGY Segs-Bands # 7.1 K/CMM 1.5 - 8.1 07/07/2017 [facility] HEMATOLOGY Lymphocytes # 1.3 K/CMM 1.0 - 5.5 07/07/2017 [facility] HEMATOLOGY Monocytes # 0.8 K/CMM 0.0 - 0.8 07/07/2017 [facility] HEMATOLOGY Eosinophils 2.9 % 0.0 - 4.0 07/07/2017 [facility] HEMATOLOGY Basophils 0.5 % 0.0 - 1.0 07/07/2017 [facility] HEMATOLOGY Monocytes 8.4 % 2.0 - 12.0 07/07/2017 [facility] HEMATOLOGY Eosinophils # 0.3 K/CMM 0.0 - 0.5 07/07/2017 [facility] Chest 1 v for Placement DX Chest 1 v for Placement DX EXAM: XR CHEST 1 VIEW DATE: 07/05/2017 9:51 AM NETWORK FIELD ENGINEER INDICATION: Line Placement - Status post PPM/ICD Implantation COMPARISON: Upright AP chest radiograph 07/03/2017 TECHNIQUE: AP chest, semierect FINDINGS: Dual lead pacemaker is been placed with the pulse generator in the left chest wall and the leads terminating in the right atrium and right ventricle. No pneumothorax. The right hemidiaphragm remains elevated with subsegmental atelectasis in the right lung base. Right upper lung and left lung are clear. The cardiac mediastinal silhouette and musculoskeletal findings are unchanged. IMPRESSION: Interval placement of dual lead pacemaker as described above with no postprocedure pneumothorax. 07/05/2017 - - Read by: Mikey Lora MD Dictated Date/time: 07/05/17 18:06 Electronically Signed by: Mikey Lora MD 07/05/17 18:07 FINAL REPORT [facility] CHEM PANEL Phosphorus 3.4 mg/dL 2.5 - 4.5 07/03/2017 [facility] CHEM PANEL eGFR 98 mL/min/1.73m2 07/03/2017 Result Comment: The eGFR is calculated using the CKD-EPI formula. In most young, healthy individuals the eGFR will be >90 mL/min/1.73m2. The eGFR declines with age. An eGFR of 60-89 may be normal in some populations, particularly the elderly, for whom the CKD-EPI formula has not been extensively validated. Use of the eGFR is not recommended in the following populations: Individuals with unstable creatinine concentrations, including patients and those with serious co-morbid conditions. Patients with extremes in muscle mass or diet. The data above are obtained from the National Kidney Disease Education Program (NKDEP) which additionally recommends that when the eGFR is used in patients with extremes of body mass index for purposes of drug dosing, the eGFR should be multiplied by the estimated BMI. [facility] CHEM PANEL Chloride Lvl 102 meq/L 95 - 109 07/03/2017 [facility] CHEM PANEL CO2 26 meq/L 24 - 32 07/03/2017 [facility] CHEM PANEL Calcium Lvl 8.9 mg/dL 8.5 - 10.5 07/03/2017 [facility] CHEM PANEL Potassium Lvl 4.2 meq/L 3.5 - 5.1 07/03/2017 [facility] CHEM PANEL Glucose Lvl 140 mg/dL 70 - 99 07/03/2017 [facility] CHEM PANEL BUN 13 mg/dL 7 - 22 07/03/2017 [facility] CHEM PANEL Creatinine Lvl 0.63 mg/dL 0.50 - 1.40 07/03/2017 [facility] CHEM PANEL Sodium Lvl 138 meq/L 135 - 145 07/03/2017 [facility] CHEM PANEL AGAP 14.2 meq/L 10.0 - 20.0 07/03/2017 [facility] CHEM PANEL Magnesium Lvl 2.2 mg/dL 1.8 - 2.4 07/03/2017 [facility] HEMATOLOGY Basophils # 0.1 K/CMM 0.0 - 0.2 07/03/2017 [facility] HEMATOLOGY Eosinophils # 0.3 K/CMM 0.0 - 0.5 07/03/2017 [facility] HEMATOLOGY Lymphocytes # 1.2 K/CMM 1.0 - 5.5 07/03/2017 [facility] HEMATOLOGY Monocytes # 0.8 K/CMM 0.0 - 0.8 07/03/2017 [facility] HEMATOLOGY Lymphocytes 13.5 % 20.0 - 40.0 07/03/2017 [facility] HEMATOLOGY Segs-Bands # 6.6 K/CMM 1.5 - 8.1 07/03/2017 [facility] HEMATOLOGY Basophils 0.7 % 0.0 - 1.0 07/03/2017 [facility] HEMATOLOGY Monocytes 8.8 % 2.0 - 12.0 07/03/2017 [facility] HEMATOLOGY Eosinophils 3.8 % 0.0 - 4.0 07/03/2017 [facility] HEMATOLOGY Segs 73.2 % 45.0 - 75.0 07/03/2017 [facility] HEMATOLOGY PT 12.8 s 12.0 - 14.7 07/03/2017 [facility] HEMATOLOGY PTT 31.7 s 22.9 - 35.8 07/03/2017 [facility] HEMATOLOGY INR 0.96 0.85 - 1.17 07/03/2017 [facility] HEMATOLOGY MPV 8.6 fL 7.4 - 10.4 07/03/2017 [facility] HEMATOLOGY RDW 16.1 % 11.5 - 14.5 07/03/2017 [facility] HEMATOLOGY Platelet 176 K/CMM 133 - 450 07/03/2017 [facility] HEMATOLOGY Hgb 10.5 g/dL 14.0 - 18.0 07/03/2017 [facility] HEMATOLOGY Hct 30.5 % 42.0 - 54.0 07/03/2017 [facility] HEMATOLOGY RBC 3.62 M/CMM 4.70 - 6.10 07/03/2017 [facility] HEMATOLOGY MCHC 34.4 g/dL 32.0 - 36.0 07/03/2017 [facility] HEMATOLOGY MCV 84.2 fL 80.0 - 94.0 07/03/2017 [facility] HEMATOLOGY MCH 28.9 pg 27.0 - 31.0 07/03/2017 [facility] HEMATOLOGY WBC 9.1 K/CMM 3.7 - 10.4 07/03/2017 [facility] PARATHYROID PROFILE Ca Ion WB 1.14 mMol/L 1.05 - 1.25 07/03/2017 [facility] PARATHYROID PROFILE Ca Norm WB 1.18 mMol/L 1.05 - 1.25 07/03/2017 [facility] Chest 1view DX Chest 1view DX EXAM: XR CHEST 1 VIEW DATE: 07/03/2017 INDICATION: Dyspnea - post op . Comparison is made with yesterday FINDINGS: Cartilage mediastinal silhouette is unchanged. Lung volumes are low. This produces spurious widening of the transverse diameter of the heart and mediastinum and crowding of the basal lung markings. This produces platelike atelectasis at both lung bases. Underlying consolidation is not excluded.. The upper lungs are clear. IMPRESSION: The previously described tiny right apical pneumothorax is no longer visible however a semierect radiograph is suboptimal for that determination. 07/03/2017 - - Read by: Viola Grimaldo MD Dictated Date/time: 07/03/17 09:47 Electronically Signed by: Viola Grimaldo MD 07/03/17 09:48 FINAL REPORT [facility] CHEM PANEL Phosphorus 3.8 mg/dL 2.5 - 4.5 07/02/2017 [facility] CHEM PANEL Calcium Lvl 9.6 mg/dL 8.5 - 10.5 07/02/2017 [facility] CHEM PANEL CO2 29 meq/L 24 - 32 07/02/2017 [facility] CHEM PANEL Creatinine Lvl 0.73 mg/dL 0.50 - 1.40 07/02/2017 [facility] CHEM PANEL Sodium Lvl 136 meq/L 135 - 145 07/02/2017 [facility] CHEM PANEL Chloride Lvl 100 meq/L 95 - 109 07/02/2017 [facility] CHEM PANEL Potassium Lvl 3.9 meq/L 3.5 - 5.1 07/02/2017 [facility] CHEM PANEL BUN 17 mg/dL 7 - 22 07/02/2017 [facility] CHEM PANEL eGFR 93 mL/min/1.73m2 07/02/2017 Result Comment: The eGFR is calculated using the CKD-EPI formula. In most young, healthy individuals the eGFR will be >90 mL/min/1.73m2. The eGFR declines with age. An eGFR of 60-89 may be normal in some populations, particularly the elderly, for whom the CKD-EPI formula has not been extensively validated. Use of the eGFR is not recommended in the following populations: Individuals with unstable creatinine concentrations, including patients and those with serious co-morbid conditions. Patients with extremes in muscle mass or diet. The data above are obtained from the National Kidney Disease Education Program (NKDEP) which additionally recommends that when the eGFR is used in patients with extremes of body mass index for purposes of drug dosing, the eGFR should be multiplied by the estimated BMI. [facility] CHEM PANEL Glucose Lvl 148 mg/dL 70 - 99 07/02/2017 [facility] CHEM PANEL AGAP 10.9 meq/L 10.0 - 20.0 07/02/2017 [facility] CHEM PANEL Magnesium Lvl 2.2 mg/dL 1.8 - 2.4 07/02/2017 [facility] HEMATOLOGY Lymphocytes # 1.5 K/CMM 1.0 - 5.5 07/02/2017 [facility] HEMATOLOGY Eosinophils # 0.4 K/CMM 0.0 - 0.5 07/02/2017 [facility] HEMATOLOGY Segs-Bands # 7.2 K/CMM 1.5 - 8.1 07/02/2017 [facility] HEMATOLOGY Basophils # 0.1 K/CMM 0.0 - 0.2 07/02/2017 [facility] HEMATOLOGY Monocytes # 1.1 K/CMM 0.0 - 0.8 07/02/2017 [facility] HEMATOLOGY Segs 70.5 % 45.0 - 75.0 07/02/2017 [facility] HEMATOLOGY Lymphocytes 14.8 % 20.0 - 40.0 07/02/2017 [facility] HEMATOLOGY Monocytes 10.4 % 2.0 - 12.0 07/02/2017 [facility] HEMATOLOGY Eosinophils 3.7 % 0.0 - 4.0 07/02/2017 [facility] HEMATOLOGY Basophils 0.6 % 0.0 - 1.0 07/02/2017 [facility] HEMATOLOGY MCHC 34.2 g/dL 32.0 - 36.0 07/02/2017 [facility] HEMATOLOGY RDW 16.4 % 11.5 - 14.5 07/02/2017 [facility] HEMATOLOGY Platelet 156 K/CMM 133 - 450 07/02/2017 [facility] HEMATOLOGY MPV 8.8 fL 7.4 - 10.4 07/02/2017 [facility] HEMATOLOGY Hgb 10.6 g/dL 14.0 - 18.0 07/02/2017 [facility] HEMATOLOGY Hct 31.0 % 42.0 - 54.0 07/02/2017 [facility] HEMATOLOGY WBC 10.2 K/CMM 3.7 - 10.4 07/02/2017 [facility] HEMATOLOGY RBC 3.74 M/CMM 4.70 - 6.10 07/02/2017 [facility] HEMATOLOGY MCH 28.3 pg 27.0 - 31.0 07/02/2017 [facility] HEMATOLOGY MCV 82.9 fL 80.0 - 94.0 07/02/2017 [facility] HEMATOLOGY PTT 35.7 s 22.9 - 35.8 07/02/2017 [facility] HEMATOLOGY PT 13.8 s 12.0 - 14.7 07/02/2017 [facility] HEMATOLOGY INR 1.06 0.85 - 1.17 07/02/2017 [facility] PARATHYROID PROFILE Ca Norm WB 1.25 mMol/L 1.05 - 1.25 07/02/2017 [facility] PARATHYROID PROFILE Ca Ion WB 1.26 mMol/L 1.05 - 1.25 07/02/2017 [facility] Chest 1view DX Chest 1view DX EXAM: XR CHEST 1 VIEW DATE: 07/02/2017 INDICATION: Dyspnea - post op . Comparison is made with yesterday FINDINGS: Cardiomediastinal silhouette and postoperative changes are stable. There is a small right pleural effusion associated with the right apical and lateral pneumothorax similar to yesterday. There is unexplained elevation of the right hemidiaphragm producing platelike atelectasis at the right lung base. Otherwise, the lungs are clear IMPRESSION: 1. No change in the right hydropneumothorax 2. Platelike atelectasis at the right lung base. The remainder the lungs are clear. 07/02/2017 - - Read by: Viola Grimaldo MD Dictated Date/time: 07/02/17 09:12 Electronically Signed by: Viola Grimaldo MD 07/02/17 09:14 FINAL REPORT [facility] BLOOD BANK RESULTS Antibody Scrn Negative (1/30/18 1:21 AM) 07/01/2017 [facility] BLOOD BANK RESULTS ABO/Rh O POS 07/01/2017 [facility] CHEM PANEL Phosphorus 4.7 mg/dL 2.5 - 4.5 07/01/2017 [facility] HEMATOLOGY PTT 34.6 s 22.9 - 35.8 07/01/2017 [facility] HEMATOLOGY PT 13.2 s 12.0 - 14.7 07/01/2017 [facility] HEMATOLOGY INR 1.00 0.85 - 1.17 07/01/2017 [facility] HEMATOLOGY Basophils # 0.1 K/CMM 0.0 - 0.2 07/01/2017 [facility] PARATHYROID PROFILE Ca Ion WB 1.15 mMol/L 1.05 - 1.25 07/01/2017 [facility] PARATHYROID PROFILE Ca Norm WB 1.17 mMol/L 1.05 - 1.25 07/01/2017 [facility] Chest 1view DX Chest 1view DX EXAM: XR CHEST 1 VIEW DATE: 06/30/2017 INDICATION: Dyspnea - post op . Comparison is made with yesterday FINDINGS: Cardiomediastinal silhouette is unchanged. Costophrenic sulci are sharp without effusion. The previously described right pneumothorax is only R. Shiley visualized over the right costophrenic sulcus. Both sulci are sharp. Lung volumes are low. This produces spurious widening of the transverse diameter of the heart and mediastinum and crowding of the basal lung markings. This produces platelike atelectasis at both lung bases. Underlying consolidation is not excluded.. The upper lungs are clear IMPRESSION: tiny right pneumothorax at the base. Low lung volumes. 06/30/2017 - - Read by: Viola Grimaldo MD Dictated Date/time: 06/30/17 08:37 Electronically Signed by: Viola Grimaldo MD 06/30/17 08:39 FINAL REPORT [facility] Chest 1view DX Chest 1view DX EXAM: XR CHEST 1 VIEW DATE: 07/01/2017 3:00 AM NETWORK FIELD ENGINEER INDICATION: Coughing - dyspnea COMPARISON: 06/30/2017 TECHNIQUE: AP chest FINDINGS: Lines, tubes and hardware: Hardware plate and screws projects over the right aspect of the mid sternum, unchanged. Lungs and pleura: The lung volumes are diminished. A small right hydropneumothorax is grossly unchanged. Streaky opacities in the lung bases likely represent atelectasis. Underlying consolidation cannot be excluded. Heart and mediastinum: The cardiomediastinal silhouette is stable. Bones: The osseous structures are unchanged. IMPRESSION: 1. Small right hydropneumothorax, grossly unchanged. 2. Bibasilar atelectasis. Underlying consolidation cannot be excluded. 06/30/2017 - - Read by: Kyler Cortez MD Dictated Date/time: 07/01/17 08:47 Electronically Signed by: Kyler Cortez MD 07/01/17 08:49 FINAL REPORT [facility] Chest 1view DX Chest 1view DX EXAM: XR CHEST 1 VIEW DATE: 06/29/2017 3:00 AM NETWORK FIELD ENGINEER INDICATION: Dyspnea - post op. FINDINGS: Comparison is made to yesterday. Cardiomediastinal silhouette is prominent but unchanged. Postoperative changes are stable. Gastric tube and right jugular central venous catheter have been removed. The lungs are low in volume with bibasilar subsegmental atelectasis. A small right pneumothorax has increased following removal of the right basal chest tube. It is seen at the apex and at the base and should be followed for clearing. There is a small right pleural effusion. The left pleural space is clear. IMPRESSION: 1. A small right pneumothorax has increased in size following removal of the right basal chest tube. The pneumothorax is seen at the apex and at the base and should be followed for clearing. 2. Small right pleural effusion. 3. The lungs are low in volume with bibasilar platelike atelectasis. 06/29/2017 - - Read by: Liliana Gonzalez MD Dictated Date/time: 06/29/17 15:39 Electronically Signed by: Liliana Gonzalez MD 06/29/17 15:43 FINAL REPORT [facility] Chest 1view DX Chest 1view DX EXAM: XR CHEST 1 VIEW DATE: 06/28/2017 3:00 AM NETWORK FIELD ENGINEER INDICATION: Dyspnea - post op. FINDINGS: Comparison is made to June 27. The cardiomediastinal silhouette and postoperative changes are stable. Mediastinal drains have been removed. Other life-support lines and tubes remain in place. There is subsegmental atelectasis in the bilateral lower lobes and perihilar regions. Persistent small right pleural effusion. Tiny left apical pneumothorax. The left pleural space is clear. IMPRESSION: Mediastinal drains have been removed. Otherwise, no significant change. 06/28/2017 - - Read by: Liliana Gonzalez MD Dictated Date/time: 06/28/17 16:23 Electronically Signed by: Liliana Gonzalez MD 06/28/17 17:24 FINAL REPORT [facility] BLOOD BANK RESULTS ABO/Rh O POS 06/27/2017 [facility] BLOOD BANK RESULTS Antibody Scrn Negative (06/27/17 12:57 AM) 06/27/2017 [facility] Abdomen AP DX Abdomen AP DX EXAM: XR ABDOMEN 2 FRONTAL VIEWS DATE: 06/27/2017 4:00 AM NETWORK FIELD ENGINEER INDICATION: abdominal distention - eval for obstruction vs trinity colon ADDITIONAL INFORMATION: None. COMPARISON: To be 06/26/2017 at 1252 hours TECHNIQUE: Frontal views of the abdomen. FINDINGS: Study limited by motion artifact and technique. Lines and tubes: Overlying EKG leads. Vasculature catheter tip overlies the right atrium. Plate screw constructs project over the mid thoracic spine. Right upper quadrant clips. NG tube, looped over the distal gastric body with tip projecting over the gastric fundus. Lower thorax: Elevation of right hemidiaphragm. Bibasilar airspace disease. Bowel: There is persistent but decreased gaseous distention of the colon. The transverse colon is within normal limits in caliber measuring up to approximately 6 cm. No distal colonic dilatation. Moderate stool burden within the ascending colon. Paucity of rectal gas. Solid organs: No abnormal mass or organomegaly seen. Calcifications: No abnormal calcifications found. Bones: Unchanged degenerative changes of the thoracolumbar spine. IMPRESSION: 1. Improved gaseous distention of the colon. 2. Moderate stool burden within the ascending colon. 06/27/2017 - - Read by: Paco Alves MD Dictated Date/time: 06/27/17 08:23 Electronically Signed by: Paco Alves MD 06/27/17 08:27 FINAL REPORT [facility] Chest 1view DX Chest 1view DX EXAM: XR CHEST 1 VIEW DATE: 06/27/2017 3:00 AM NETWORK FIELD ENGINEER INDICATION: Dyspnea - post op COMPARISON: 06/26/2017 TECHNIQUE: AP chest FINDINGS: Lines, tubes and hardware: The support lines and tubes are stable in position. A mitral valve prosthesis is present. Lungs and pleura: The lung volumes are diminished causing vascular crowding. A small right hydropneumothorax remains, unchanged. Bibasilar streaky opacities likely represent atelectasis. Underlying consolidation cannot be excluded. Heart and mediastinum: The cardiomediastinal silhouette is stable. Bones: The osseous structures are unchanged. IMPRESSION: 1. No significant interval change compared to the prior study. 06/27/2017 - - Read by: Kyler Cortez MD Dictated Date/time: 06/27/17 10:55 Electronically Signed by: Kyler Cortez MD 06/27/17 10:58 FINAL REPORT [facility] HEMATOLOGY Sed Rate 35 mm/h 0 - 15 06/26/2017 [facility] HEMATOLOGY D-Dimer 0.46 ug/mL FEU 06/26/2017 [facility] Abdomen AP DX Abdomen AP DX EXAM: XR ABDOMEN 1 VIEW DATE: 06/26/2017 11:39 AM NETWORK FIELD ENGINEER INDICATION: abdominal distention, pain, N/V - abdominal distention, pain, N/V ADDITIONAL INFORMATION: None. COMPARISON: Abdomen AP DX Jun. TECHNIQUE: AP view of the abdomen. FINDINGS: Lines, tubes and hardware: Two surgical drains in right upper quadrant. Surgical hardware overlies T4-5 vertebrae. Multiple EKG leads. Lower thorax: Unremarkable where visualized. Abdomen and bowel: Mild dilatation of cecum measuring up to 9.0 cm. Small bowel loops are normal in caliber. Calcifications: No abnormal calcifications found. Bones and soft tissues: No acute abnormality. IMPRESSION: 1. Gaseous distention of right colon and transverse colon with mild dilation of cecum indicating cecal ileus. 06/26/2017 - - This report was dictated by a Sewer Connector/Fellow. I have personally reviewed the images as well as the Resident's interpretation and agree with the findings. Read by: Velma Larry MD Resident: Velma Larry MD Dictated Date/time: 06/26/17 13:47 Electronically Signed by: Junie Winkler 06/26/17 15:18 FINAL REPORT [facility] Chest 1view DX Chest 1view DX EXAM: XR CHEST 1 VIEW DATE: 06/26/2017 12:17 PM NETWORK FIELD ENGINEER INDICATION: hypoxic, sob, increased oxygen requirements - hypoxic, sob, increased oxygen requirements COMPARISON: 06/26/2017 TECHNIQUE: AP chest FINDINGS: Lines, tubes and hardware: The support lines and tubes are stable in position. A mitral valve prosthesis is present. Lungs and pleura: A small right pleural effusion remains. A small left apical pneumothorax is seen, slightly increased compared to the prior study. Bilateral streaky opacities are again seen, likely representing atelectasis. Underlying consolidation cannot be excluded. The lung volumes are diminished. Heart and mediastinum: The cardiomediastinal silhouette is enlarged, stable. Bones: The osseous structures are unchanged. IMPRESSION: 1. Small right hydropneumothorax with slight increase in size of the right apical pneumothorax component and with thoracostomy tubes in place. 2. Scattered subsegmental atelectasis. Underlying consolidation cannot be excluded. 3. Stable cardiomegaly. 06/26/2017 - - Read by: Kyler Cortez MD Dictated Date/time: 06/26/17 14:13 Electronically Signed by: Kyler Cortez MD 06/26/17 14:15 FINAL REPORT [facility] Chest 1view DX Chest 1view DX EXAM: XR CHEST 1 VIEW DATE: 06/26/2017 3:00 AM NETWORK FIELD ENGINEER INDICATION: dyspnea - dyspnea. FINDINGS: Comparison is made to yesterday morning. The cardiomediastinal silhouette and postoperative changes are stable. The endotracheal tube has been removed. Other life-support lines and tubes remain in place. There is a small right pleural effusion. The right hemidiaphragm is elevated. The lungs are low in volume with bibasilar subsegmental atelectasis. IMPRESSION: 1. Small right pleural effusion. 2. The lungs are low in volume with elevated right hemidiaphragm. Bibasilar subsegmental atelectasis. 3. Extubated. 06/26/2017 - - Read by: Liliana Gonzalez MD Dictated Date/time: 06/26/17 10:22 Electronically Signed by: Liliana Gonzalez MD 06/26/17 10:23 FINAL REPORT [facility] Abdomen AP DX Abdomen AP DX EXAM: XR ABDOMEN 1 VIEW DATE: 06/25/2017 7:34 AM NETWORK FIELD ENGINEER INDICATION: ABD distention - S/p NGT ADDITIONAL INFORMATION: None. COMPARISON: None. TECHNIQUE: AP view of the abdomen. FINDINGS: NG tube side port overlying the proximal gastric body. No small or large bowel dilation. IMPRESSION: 1. Nonobstructive bowel gas pattern. 06/25/2017 - - Read by: Tu Jackson MD Dictated Date/time: 06/25/17 10:32 Electronically Signed by: Tu Jackson MD 06/25/17 10:33 FINAL REPORT [facility] Chest 1view DX Chest 1view DX EXAM: XR CHEST 1 VIEW DATE: 06/25/2017 INDICATION: abnormal breath sounds - abnormal breath sounds . Comparison is made with yesterday FINDINGS: Cardiomediastinal silhouette and life-support lines are unchanged. Gaseous distention of the stomach is identified. Lung volumes are low. This produces spurious widening of the transverse diameter of the heart and mediastinum and crowding of the basal lung markings. This produces platelike atelectasis at both lung bases. Underlying consolidation is not excluded. The upper lungs are clear. IMPRESSION: No significant interval change when compared to prior radiograph. 06/25/2017 - - Read by: Viola Grimaldo MD Dictated Date/time: 06/25/17 09:15 Electronically Signed by: Viola Grimaldo MD 06/25/17 09:15 FINAL REPORT [facility] Chest 1view DX Chest 1view DX EXAM: XR CHEST 1 VIEW DATE: 06/24/2017 6:23 PM NETWORK FIELD ENGINEER INDICATION: Respiratory distress - Post op COMPARISON: X-ray chest 05/28/2017 TECHNIQUE: AP chest FINDINGS: Lines, tubes and hardware: Endotracheal tube is in place with tip located 2.2 cm from the [place]. Right internal jugular central venous catheter is also noted with the tip located at the cavoatrial junction. A right basilar chest tube is in place. Lungs and pleura: Lung volumes are decreased with scattered platelike atelectasis seen throughout the lower lobes, right greater than left. No pneumothorax or pleural effusion. Heart and mediastinum: The heart size is normal for technique. The mediastinal contours are normal. Bones: No acute bony abnormality is identified. IMPRESSION: 1. Decreased lung volumes with scattered platelike atelectasis seen throughout the lower lobes, right greater than left. 2. Endotracheal tube in place with tip located 2.2 cm from the [place]. 06/24/2017 - - Read by: John Ortiz MD Dictated Date/time: 06/24/17 19:33 Electronically Signed by: John Ortiz MD 06/24/17 19:37 FINAL REPORT [facility] CHEM PANEL Bili Total 1.1 mg/dL 0.2 - 1.3 06/24/2017 [facility] CHEM PANEL Alk Phos 53 unit/L 39 - 136 06/24/2017 [facility] CHEM PANEL AST 27 unit/L 0 - 37 06/24/2017 [facility] CHEM PANEL ALT 55 unit/L 0 - 65 06/24/2017 [facility] CHEM PANEL Total Protein 7.5 g/dL 6.4 - 8.4 06/24/2017 [facility] CHEM PANEL Albumin Lvl 3.6 g/dL 3.5 - 5.0 06/24/2017 [facility] CHEM PANEL A/G Ratio 0.9 0.7 - 1.6 06/24/2017 [facility] CHEM PANEL Globulin 3.9 g/dL 2.7 - 4.2 06/24/2017 [facility] CHEM PANEL B/C Ratio 20 6 - 25 06/24/2017 [facility] SPECIAL CHEMISTRY Hgb A1C 8.7 % <=5.6 % 06/24/2017 [facility] BLOOD BANK RESULTS ABO/Rh O POS 06/23/2017 [facility] BLOOD BANK RESULTS Antibody Scrn Negative (06/23/17 9:08 AM) 06/23/2017 [facility] Chest 2 views DX Chest 2 views DX EXAM: XR CHEST 2 VIEWS DATE: 05/28/2017 2:25 PM NETWORK FIELD ENGINEER INDICATION: - R06.02 Shortness of breath COMPARISON: Chest radiograph dated 05/24/2015 TECHNIQUE: PA and lateral chest radiographs FINDINGS: Lungs are symmetrically well expanded. No pulmonary or pleural-based abnormality is identified. The cardiomediastinal silhouette is normal. No acute osseous abnormality is identified. IMPRESSION: No acute cardiopulmonary abnormality. 05/28/2017 - - Read by: Angel Bourne MD Dictated Date/time: 05/28/17 15:27 Electronically Signed by: Angel Buorne MD 05/28/17 15:27 FINAL REPORT [facility] Extremity Lower uni CTA Extremity Lower uni CTA CTA RIGHT LOWER EXTREMITY. DATE: 02/23/2016 8:55 AM CDT INDICATION: E11.65 Type 2 diabetes mellitus with hyperglycemia. Nontraumatic leg pain. ADDITIONAL INFORMATION: None. COMPARISON: November 2015 the radiographs. TECHNIQUE: Volumetric CT acquisition of the right lower extremity. Axial, coronal and sagittal reconstructions. MIP reformats are created at the acquisition workstation. FINDINGS: The visualized portions of the left common, internal, and external iliac arteries are normal in caliber. There are mild atherosclerotic calcifications of the left internal iliac artery. Right lower extremity vasculature: The right common iliac artery is normal in caliber without stenosis despite mild noncalcified and calcified atherosclerotic plaque. There are mild atherosclerotic calcifications of the normal caliber and patent right internal iliac artery. The right external iliac artery is normal caliber without stenosis. Patent normal caliber right common femoral artery. The profunda femoris artery is patent. Patent normal caliber superficial femoral artery. There are mild multifocal atherosclerotic calcifications of the SFA without flow-limiting stenosis. The popliteal artery, anterior tibial artery, tibioperoneal trunk, posterior tibial artery, and peroneal arteries are patent. They demonstrate mild atherosclerotic calcification without significant stenosis. There is three-vessel runoff to the ankle. The anterior tibial artery is contiguous with a patent dorsalis pedis artery. The posterior tibial artery is contiguous with patent plantar arteries. Skeletal structures and soft tissues: Partially imaged degenerative lumbar spondylosis. 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 [id number] right hip osteoarthritis. Mild to moderate right knee osteoarthritis. Small right knee joint effusion. Small intramuscular lipoma measuring 1.2 cm in the proximal thigh (series 4 image 45). No suspicious soft tissue mass or fluid collection. No acute fracture. No destructive osseous lesions. Visualized small bowel and colon is normal in caliber. Partially imaged scrotal hydroceles. The appendix is normal. IMPRESSION: 1. Patent right lower extremity arterial vasculature without areas of flow-limiting high-grade stenosis. There are mild scattered atherosclerotic calcifications. There is three-vessel runoff to the right ankle. 2. No acute fracture. No suspicious right lower soft tissue mass or fluid collection. Scattered osseous degenerative changes as detailed above. 02/23/2016 - - This report was dictated by a Sewer Connector/Fellow. I have personally reviewed the images as well as the Resident's interpretation and agree with the findings. Read by: Romeo Soares MD Resident: Romeo Soares MD Dictated Date/time: 02/23/16 17:01 Electronically Signed by: Nicola Huang MD 02/23/16 17:25 FINAL REPORT [facility] Knee 1-2 Views Bilateral DX Knee 1-2 Views Bilateral DX EXAM: XR BILATERAL KNEE 1 VIEW EXAM: XR RIGHT KNEE 3 VIEWS DATE: 11/23/2015 12:35 PM CDT INDICATION: M79.609 Pain in unspecified limb COMPARISON: Right knee series 10/20/2015 TECHNIQUE: And AP weightbearing view of both knees. PA weightbearing view of both knees with sunrise and lateral views of the right knee. DISCUSSION: No acute fracture or malalignment is identified. Small right patellofemoral compartment osteophytes. No right knee joint fluid. Moderate arterial calcification. IMPRESSION: 1. Minimal right knee osteoarthrosis. 2. No joint space narrowing of either knee. 11/23/2015 - - Read by: Colin Morillo MD Dictated Date/time: 11/24/15 08:26 Electronically Signed by: Colin Morillo MD 11/24/15 08:32 FINAL REPORT [facility] Knee 3 views DX Knee 3 views DX EXAM: XR BILATERAL KNEE 1 VIEW EXAM: XR RIGHT KNEE 3 VIEWS DATE: 11/23/2015 12:35 PM CDT INDICATION: M79.609 Pain in unspecified limb COMPARISON: Right knee series 10/20/2015 TECHNIQUE: And AP weightbearing view of both knees. PA weightbearing view of both knees with sunrise and lateral views of the right knee. DISCUSSION: No acute fracture or malalignment is identified. Small right patellofemoral compartment osteophytes. No right knee joint fluid. Moderate arterial calcification. IMPRESSION: 1. Minimal right knee osteoarthrosis. 2. No joint space narrowing of either knee. 11/23/2015 - - Read by: Colin Morillo MD Dictated Date/time: 11/24/15 08:26 Electronically Signed by: Colin Morillo MD 11/24/15 08:32 FINAL REPORT [facility] Ext Lower non vascular US Ext Lower non vascular US EXAMINATION: Right lower extremity nonvascular ultrasound HISTORY: Right lower leg/right calf pain x 2 months FINDINGS: Comparison is made with radiograph dated same day. Sonographic evaluation of the right lower leg in the region of the patient's pain is performed and static sonographic images are submitted for interpretation. Sonographic evaluation in the area of the patient's pain along the posterior aspect of the right knee and calf failed to demonstrate a sonographic abnormality. IMPRESSION: 1. No sonographic abnormality identified within the area of the patient's pain along the posterior aspect of the right knee and calf. Further evaluation may be performed with magnetic resonance imaging as clinically indicated. 10/20/2015 - - Read by: Steve Dietz MD Dictated Date/time: 10/20/15 16:21 Electronically Signed by: Steve Dietz MD 10/20/15 16:24 FINAL REPORT [facility] Knee 4+ views unilateral DX Knee 4+ views unilateral DX EXAMINATION: Right knee 4+ views unilateral HISTORY: Chronic right knee pain; right knee osteoarthritis FINDINGS: 4 views of the right knee are performed without comparison. There are no fractures. There is mild patellofemoral and minimal medial compartment osteoarthritis of the right knee with asymmetric joint space narrowing and mild osteophyte formation. There is a trace knee effusion. Arterial atherosclerotic calcifications are noted. IMPRESSION: 1. Mild patellofemoral and minimal medial compartment osteoarthritis of the right knee with a trace knee effusion. 10/20/2015 - - Read by: Steve Dietz MD Dictated Date/time: 10/20/15 13:41 Electronically Signed by: Steve Dietz MD 10/20/15 13:43 FINAL REPORT [facility] Chest 2 views DX Chest 2 views DX EXAM: XR CHEST TWO VIEWS DATE: 05/24/2015 COMPARISON EXAMS: None. CLINICAL INDICATION: Acute bronchitis. TECHNIQUE: PA and Lateral views DISCUSSION: PA and lateral chest x-rays reveal no lung parenchymal or pleural abnormalities. The cardiomediastinal silhouette, hilar, and pulmonary vascular structures as well as the regional chest wall structures are normal in appearance. Tracheal and mainstem bronchial shadows are normal in appearance. Multilevel spondylosis is seen in the thoracic spine. IMPRESSION: No radiographic evidence of pneumonia. No cardiopulmonary abnormalities are seen. 05/24/2015 - - Read by: Bryan Schaefer MD Dictated Date/time: 05/24/15 10:04 Electronically Signed by: Bryan Schaefer MD 05/24/15 10:06 FINAL REPORT [facility] Vital Signs Vital Sign Value Date Comments Source Respitory Rate 18 10/10/2017 [facility] Systolic (mm Hg) 136 10/10/2017 [facility] Diastolic (mm Hg) 76 10/10/2017 [facility] Systolic (mm Hg) 114 10/10/2017 [facility] Diastolic (mm Hg) 69 10/10/2017 [facility] Respitory Rate 18 10/10/2017 [facility] Systolic (mm Hg) 127 10/10/2017 [facility] Diastolic (mm Hg) 65 10/10/2017 [facility] Temperature Oral (F) 98.4 F 10/10/2017 [facility] Respitory Rate 18 10/10/2017 [facility] Temperature Oral (F) 99 F 10/10/2017 [facility] Temperature Oral (F) 98.4 F 10/10/2017 [facility] Weight 87.727 10/07/2017 [facility] Height 170.18 cm 10/07/2017 [facility] Heart Rate 89 10/06/2017 [facility] Heart Rate 82 10/06/2017 [facility] Heart Rate 87 10/06/2017 [facility] Height 170.18 cm 10/05/2017 [facility] Weight 87.727 10/05/2017 [facility] BMI Calculated 30.29 10/05/2017 [facility] Weight 87.273 10/04/2017 [facility] BMI Calculated 30.13 10/04/2017 [facility] Height 170.18 cm 10/04/2017 [facility] Systolic (mm Hg) 120 07/23/2017 [facility] Diastolic (mm Hg) 79 07/23/2017 [facility] Heart Rate 80 07/23/2017 [facility] Respitory Rate 18 07/23/2017 [facility] Temperature Oral (F) 98.3 F 07/23/2017 [facility] Systolic (mm Hg) 138 07/23/2017 [facility] Diastolic (mm Hg) 80 07/23/2017 [facility] Respitory Rate 18 07/23/2017 [facility] Temperature Oral (F) 98.3 F 07/23/2017 [facility] Heart Rate 73 07/23/2017 [facility] Temperature Oral (F) 98.3 F 07/23/2017 [facility] Respitory Rate 18 07/23/2017 [facility] Heart Rate 70 07/23/2017 [facility] Systolic (mm Hg) 146 07/23/2017 [facility] Diastolic (mm Hg) 79 07/23/2017 [facility] BMI Calculated 29.19 07/17/2017 [facility] Weight 84.545 07/17/2017 [facility] Height 170.18 cm 07/17/2017 [facility] Systolic (mm Hg) 130 07/07/2017 [facility] Diastolic (mm Hg) 87 07/07/2017 [facility] Systolic (mm Hg) 121 07/07/2017 [facility] Diastolic (mm Hg) 77 07/07/2017 [facility] Systolic (mm Hg) 134 07/07/2017 [facility] Diastolic (mm Hg) 78 07/07/2017 [facility] Respitory Rate 34 07/07/2017 [facility] Respitory Rate 22 07/07/2017 [facility] Respitory Rate 21 07/07/2017 [facility] Temperature Oral (F) 97 F 07/06/2017 [facility] Temperature Oral (F) 97.4 F 07/06/2017 [facility] Temperature Oral (F) 97.1 F 07/06/2017 [facility] Height 170.18 cm 06/25/2017 [facility] Height 170.18 cm 06/25/2017 [facility] Height 170.18 cm 06/25/2017 [facility] Heart Rate 63 06/24/2017 [facility] Heart Rate 72 06/24/2017 [facility] Heart Rate 61 06/24/2017 [facility] BMI Calculated 31.55 06/23/2017 [facility] Weight 91.364 06/23/2017 [facility] Height 172.72 cm 05/03/2015 [facility] Weight 81.818 05/03/2015 [facility] BMI Calculated 27.43 05/03/2015 [facility] Encounters Location Location Details Encounter Type Encounter Number Reason For Visit Attending Provider ADM Date DC Date Status Source [facility] Bedded Outpatient [id number] Mook Cerna 05/03/2015 05/03/2015 [facility] [place] [facility] [id number] Nevin Monroy 05/24/2015 05/25/2015 [facility] [place] [facility] [id number] Olga Lebron 10/20/2015 10/21/2015 [facility] [place] [facility] - [place] [facility] [id number] Bernardino Ramachandran 11/23/2015 11/24/2015 [facility] [place] [facility] [id number] Mook Cerna 02/23/2016 02/24/2016 [facility] [place] [facility] [id number] Latrice Keyes 05/28/2017 05/29/2017 [facility] Inpatient [id number] Mook Cerna 06/24/2017 07/07/2017 [facility] Inpatient [id number] Portillo Mortensen 07/17/2017 07/23/2017 [facility] Inpatient [id number] Jorge Landrum 10/04/2017 10/10/2017 [facility] Procedures Procedure Code Date Perfomer Comments Source AVR - Aortic valve replacement [id number] [facility] Cardiac pacemaker procedure [id number] [facility] Cholecystectomy [id number] [facility] Tonsillectomy [id number] [facility]
--- OUTSIDE RECORDS SUMMARY | 2018-05-05 18:47 | XMS REPORT | Summary of Care ---
Author Author [facility] Outpatient Imaging [facility] Outpatient [facility] Address Unknown Phone Unavailable Encounter HQ Libertyntr_al(FIN) [id number] Date(s): 05/24/15 - 05/24/15 [facility] Outpatient Imaging [facility] [address] [address] [facility], [address] [phone] Discharge Disposition: Home Attending Physician: Nevin Monroy MD Vital Signs No data available for this section Problem List No data available for this section Allergies, Adverse Reactions, Alerts No data available for this section Medications No data available for this section Results No data available for this section Immunizations No data available for this section Procedures No data available for this section Social History No data available for this section Assessment and Plan No data available for this section
--- OUTSIDE RECORDS SUMMARY | 2018-05-05 18:47 | XMS REPORT | Summary of Care ---
Author Author [facility] Outpatient Imaging - [place] Organization [facility] [place] Address Unknown Phone Unavailable Encounter HQ Encntr_alinuris(FIN) [id number] Date(s): 10/20/15 - 10/20/15 [facility] Outpatient [facility] [place] [address] [place], [place] [address] [phone] Discharge Disposition: Home Attending Physician: Olga Lebron MD Vital Signs No data available for [...]
--- OUTSIDE RECORDS SUMMARY | 2018-05-05 18:47 | XMS REPORT | Summary of Care ---
Author Author [facility] Outpatient Imaging [facility] Outpatient [facility] Address Unknown Phone Unavailable Encounter HQ Encntr_alinuris(FIN) [id number] Date(s): 02/23/16 - 02/23/16 [facility] Outpatient Imaging [facility] [address] [address] [facility], [address] [place] [phone] Discharge Disposition: Home or Self Care Attending Physician: Mook Cerna MD Vital Signs No data available for [...]
--- OUTSIDE RECORDS SUMMARY | 2018-05-05 18:47 | XMS REPORT | Summary of Care ---
Author Author [facility] Outpatient Imaging [facility] Outpatient [facility] Address Unknown Phone Unavailable Encounter HQ Libertyntr_alinuris(FIN) [id number] Date(s): 05/28/17 - 05/28/17 [facility] Outpatient Imaging [facility] [address] [address] [facility], [address] [place], [place] [address] [phone] Discharge Disposition: Home or Self Care Attending Physician: Latrice Keyes MD Vital Signs No data available for [...]
--- OUTSIDE RECORDS SUMMARY | 2018-05-05 18:47 | XMS REPORT | Summary of Care ---
Author Author [facility] Organization [facility] Address Unknown Phone Unavailable Encounter LISA Bermudez(MATHIEU) [id number] Date(s): 05/03/15 - 05/03/15 [facility] [address] [place] [address]- [phone] Discharge Disposition: Home Attending Physician: Mook Cerna MD Referring Physician: Mook Cerna MD Vital Signs Most recent to 1 oldest [Reference Range]: Height 172.72 cm (05/03/15 6:50 AM) Weight 81.818 kg (05/03/15 6:50 AM) Body Mass Index 27.43 m2 (05/03/15 6:50 AM) Problem List No data available for this section Allergies, Adverse Reactions, Alerts No data available for this section Medications amLODIPine PO, Daily, 0 Refill(s) Start Date: 05/03/15 Status: Ordered Aspirin Low Dose 81 mg oral tablet 0 Refill(s) Start Date: 05/03/15 Status: Ordered calcipotriene topical 0.005% cream 1 appl, TOP, BID, 0 Refill(s) Start Date: 05/03/15 Status: Ordered fluocinolone topical 0.01% oil 1 appl, TOP, TID, 0 Refill(s) Start Date: 05/03/15 Status: Ordered fluocinonide topical 0.05% solution 1 appl, TOP, TID, 0 Refill(s) Start Date: 05/03/15 Status: Ordered hydrALAZINE 50 mg oral tablet 50 mg=1 tab, PO, QID, 0 Refill(s) Start Date: 05/03/15 Status: Ordered losartan 100 mg oral tablet 100 mg=1 tab, PO, Daily, 0 Refill(s) Start Date: 05/03/15 Status: Ordered metFORMIN 500 mg oral tablet 500 mg=1 tab, PO, BID, 0 Refill(s) Start Date: 05/03/15 Status: Ordered metoprolol 25 mg oral tablet, extended release 25 mg=1 tab, PO, Daily, 0 Refill(s) Start Date: 05/03/15 Status: Ordered nitroglycerin SL Tab 0.4 mg, 1 tab, Route: SL, Drug form: TAB, Q5Min, Dosing Weight 81.818, kg, PRN C hest Pain, Start date: 05/03/15 12:57:00, Duration: 3 doses or times, Stop date: Limited # of times Notes: (Same as:Nitroquick, Nitrostat)"Do Not Crush" Sublingual tablet Start Date: 05/03/15 Stop Date: 05/04/15 Status: Discontinued normal saline 0.9% IV 1,000 mL 1,000 mL, Rate: 100 ml/hr, Infuse over: 10 hr, Route: IV, Total Volume: 1,000, S tart date: 05/03/15 6:50:00, Duration: 30 day, Stop date: 06/02/15 6:49:00 Start Date: 05/03/15 Stop Date: 05/04/15 Status: Discontinued Results No data available for this section Immunizations No data available for this section Procedures No data available for this section Social History No data available for this section Assessment and Plan Extracted from: Title: Clinical Document Author: Mook Cerna MD Date: 05/03/15 PROCEDURE REPORT INTERVENTIONAL CARDIOLOGY ATTENDING: Dr. Mook Cerna. PROCEDURES PERFORMED/INDICATION: 1. Left heart catheterization/Chest pain and pre operative evaluation prior to aortic valve replacement 2. Selective coronary angiography/Chest pain and pre operative evaluation prior to aortic valve replacement 3. Right heart catheterization/Pre operative evaluation prior to aortic valve replacement and calculation of aortic valve area PREPROCEDURE DIAGNOSES: 1. Exertional angina 2. Moderate aortic valve stenosis 3. Preoperative catheterization POSTPROCEDURE DIAGNOSES: 1. Two vessel CAD 2. Mild to moderate aortic valve stenosis (SADE 1.46, AV mean gradient 20mmHg) 3. Normal right heart pressures 4. Midly reduced LV function EF 50% PROCEDURE DETAILS: After informed consent was obtained, the patient was brought to the cardiac catheterization laboratory in a fasting, nonsedated state. Right groin was prepped and draped in the usual sterile fashion. Lidocaine 1% was infiltrated in the right anterior groin for local anesthesia. Using a micropuncture kit and fluoroscopic guidance, the right common femoral artery was accessed via the modified Seldinger technique and a 10 cm 6-Nigerian sheath was placed. Using a micropuncture kit and fluoroscopic guidance, the right common femoral vein was accessed via the modified Seldinger technique and a 10 cm 7-Nigerian sheath was placed. 7F swan catheter was advanced and RA, RV, PA and PCWP pressures were obtained that were normal. PA saturation adn Ao saturations were also obtained for calculation of SADE. Pigtail was advanced and crossed in the Left ventricle over a wire and LVEDP was measured that was normal. Pigtain was exchanged for a Langsten catheter that showed a pressures gradient of 20mmHg across the aortic valve. V gram showed an estimated EF of 50%. Pull back also showed 20mmHg of gradient across the aortic valve. AV area was calculated at 1.46mmhg. Diagnostic angiography was obtained using a 6-Nigerian JL 4 and 3DRC catheters. Left main coronary arteries, left anterior descending and left circumflex artery and right coronary artery selective angiography were performed. The sheaths were sutured in place. The patient tolerated the procedure well with no immediate periprocedural complications. He was transported out of the [place] lab[place] to the holding area in stable condition PROCEDURAL FINDINGS: CORONARY ANGIOGRAPHY: 1. Left main coronary artery is a large vessel with mild angiographic disease 2. The left anterior descending coronary artery has a proximal 60% stenosis and a long diffuse 80% segment at the mid part. The first diagonal branch has a 60% stenosis 3. Left circumflex coronary artery with 80% stenosis at the bocurcation with the OM 4. Right coronary artery has a proximal 20% stenosis at the proximal part LEFT HEART CATHETERIZATION 1. Normal LVEDP 2. 20mmHg of gradient across the aortic valve RIGHT HEART PRESSURES 1. Normal RA, PA pressures and PCWP 2. PA PLAN 1. Aggressive medical management of CAD 2. Nuclear stress test to access the amount of ischemia 3. Will discuss surgical vs percutaneous treatment options
--- OUTSIDE RECORDS SUMMARY | 2018-05-05 18:47 | XMS REPORT | Summary of Care ---
Author Author [facility] Organization [facility] Address Unknown Phone Unavailable Encounter LISA Bermudez(MATHIEU) [id number] Date(s): 07/17/17 - 07/23/17 [facility] [id number] [employer] provided by [employer] [facility] [employer] [place] [address]- Encounter Diagnosis Hemorrhage of anus and rectum (Final) - Angiodysplasia of colon with hemorrhage (Final) - 07/29/17 Supraventricular tachycardia (Final) - Type 2 diabetes mellitus without complications (Final) - Acute posthemorrhagic anemia (Final) - Essential (primary) hypertension (Final) - Atherosclerotic heart disease of [place] coronary artery without angina pectoris (Final) - Diverticulosis of intestine, part unspecified, without perforation or abscess wi thout bleeding (Final) - Benign neoplasm of cecum (Final) - Residual hemorrhoidal skin tags (Final) - Presence of cardiac pacemaker (Final) - Hyperlipidemia, unspecified (Final) - Presence of prosthetic heart valve (Final) - Discharge Disposition: Home or Self Care Attending Physician: Portillo Mortensen MD Admitting Physician: Portillo Mortensen MD Vital Signs 1 2 3 Most recent to oldest [Reference Range]: 170.18 cm (07/17/17 3:35 PM) Height 81.165 kg (07/23/17 6:15 AM) 82.045 kg (07/22/17 4:00 AM) 82.955 kg (07/19/17 6:10 AM) Current Weight 98.3 DegF (07/23/17 8:04 AM) 98.3 DegF (07/23/17 4:34 AM) 98.3 DegF (07/22/17 11:40 PM) Temperature Oral [96.4-99.1 DegF] 120/79 mmHg (07/23/17 8:04 AM) 138/80 mmHg (07/23/17 4:34 AM) 146/79 mmHg *HI* (07/22/17 11:40 PM) Blood Pressure [90-140/60-90 mmHg] 18 BRMIN (07/23/17 8:04 AM) 18 BRMIN (07/23/17 4:34 AM) 18 BRMIN (07/22/17 11:40 PM) Respiratory Rate [14-20 BRMIN] 80 bpm (07/23/17 8:04 AM) 73 bpm (07/23/17 4:34 AM) 70 bpm (07/22/17 11:40 PM) Peripheral Pulse Rate [60-100 bpm] 84.545 kg (07/17/17 3:35 PM) Weight 29.19 m2 (07/17/17 3:35 PM) Body Mass Index Problem List Condition Effective Dates Status Health Status Informant Aortic valve Resolved disease(Confirmed) Aortic Active stenosis(Confirmed) Coronary artery Resolved disease(Confirmed) Diabetes(Confirmed) Resolved Hypertension, Active essential(Confirmed) Hypertension(Confirm Resolved ed) DM (diabetes Active mellitus), type 2(Confirmed) Allergies, Adverse Reactions, Alerts Substance Reaction Severity Status morphine1 Active Norco2 Active Tylenol with Codeine #33 Active OxyCONTIN4 Active 1hallucinations 2hallucinations 3agitation and confusion 4hallucinations Medications aspirin 81 mg, 1 tab, Route: PO, Drug form: ECTAB, Daily, Dosing Weight 84.545, kg, Star t date: 07/18/17 9:00:00 TRIGONOMETRY TEACHER, Duration: 30 day, Stop date: 08/16/17 9:00:00 CDT Start Date: 07/18/17 Stop Date: 07/23/17 Status: Discontinued aspirin 81 mg tablet, enteric coated 81 mg=1 tab, PO, Daily, # 32 tab, 0 Refill(s), Pharmacy: [id number] Start Date: 07/23/17 Stop Date: 10/10/17 Status: Discontinued atorvastatin 80 mg, 1 tab, Route: PO, Drug form: TAB, Bedtime, Dosing Weight 84.545, kg, Star t date: 07/18/17 21:00:00 TRIGONOMETRY TEACHER, Duration: 30 day, Stop date: 08/16/17 21:00:00 CD T Notes: Same as Lipitor Start Date: 07/18/17 Stop Date: 07/23/17 Status: Discontinued atorvastatin 80 mg oral tablet 80 mg=1 tab, PO, Bedtime, # 30 tab, 0 Refill(s), Pharmacy: [facility] [id number] Start Date: 07/23/17 Stop Date: 10/10/17 Status: Discontinued bisacodyl 5 mg, 1 tab, Route: PO, Drug form: ECTAB, ONCE, Dosing Weight 84.545, kg, Start date: 07/21/17 5:00:00 TRIGONOMETRY TEACHER, Stop date: 07/21/17 5:00:00 TRIGONOMETRY TEACHER Notes: (Same As: Dulcolax, Correctol) (Do Not Crush) "Do Not Crush" Start Date: 07/21/17 Stop Date: 07/21/17 Status: Completed bisacodyl 5 mg, 1 tab, Route: PO, Drug form: ECTAB, ONCE, Dosing Weight 84.545, kg, Priori ty: NOW, Start date: 07/20/17 13:01:00 TRIGONOMETRY TEACHER, Stop date: 07/20/17 13:01:00 TRIGONOMETRY TEACHER Notes: (Same As: Dulcolax, Correctol) (Do Not Crush) "Do Not Crush" Start Date: 07/20/17 Stop Date: 07/20/17 Status: Completed calcium gluconate + Sodium Chloride 0.9% IV 80 mL 3 gm, 30 mL, Route: IVPB, PRN, Dosing Weight 84.545, kg, PRN Abnormal Lab Result , For NON-ICU Patients Only., Start date: 07/20/17 5:43:00 TRIGONOMETRY TEACHER, Duration: 30 day , Stop date: 08/19/17 6:42:00 CDT Notes: WASTE: F/P - Sink; E - Municipal Trash Bin Start Date: 07/20/17 Stop Date: 07/23/17 Status: Discontinued calcium gluconate + Sodium Chloride 0.9% IV 80 mL 2 gm, 20 mL, Route: IVPB, PRN, Dosing Weight 84.545, kg, PRN Abnormal Lab Result , For NON-ICU Patients Only., Start date: 07/20/17 5:43:00 TRIGONOMETRY TEACHER, Duration: 30 day , Stop date: 08/19/17 6:42:00 CDT Notes: WASTE: F/P - Sink; E - Municipal Trash Bin Start Date: 07/20/17 Stop Date: 07/23/17 Status: Discontinued clopidogrel 75 mg oral tablet 75 mg=1 tab, PO, Daily, # 30 tab, 0 Refill(s), Pharmacy: [id number] Start Date: 07/23/17 Stop Date: 10/10/17 Status: Discontinued Dextrose 50% Syringe 25 gm, 50 mL, Route: IVP, Drug Form: INJ, Dosing Weight 84.545, kg, PRN, PRN Blo od Glucose Results, Start date: 07/18/17 3:52:00 TRIGONOMETRY TEACHER, Duration: 30 day, Stop earle e: 08/17/17 4:51:00 CDT Start Date: 07/18/17 Stop Date: 07/23/17 Status: Discontinued Dextrose 50% Syringe 12.5 gm, 25 mL, Route: IVP, Drug Form: INJ, Dosing Weight 84.545, kg, PRN, PRN B lood Glucose Results, Start date: 07/18/17 3:52:00 TRIGONOMETRY TEACHER, Duration: 30 day, Stop d ate: 08/17/17 4:51:00 CDT Start Date: 07/18/17 Stop Date: 07/23/17 Status: Discontinued docusate sodium 50 mg oral capsule 50 mg, 1 cap, Route: PO, Drug form: CAP, ONCE, Dosing Weight 84.545, kg, Priorit y: NOW, Start date: 07/20/17 12:59:00 TRIGONOMETRY TEACHER, Stop date: 07/20/17 12:59:00 TRIGONOMETRY TEACHER Notes: (Same as: Colace) (Do Not Crush) Start Date: 07/20/17 Stop Date: 07/20/17 Status: Discontinued dofetilide 500 microgram, 1 cap, Route: PO, Drug form: CAP, Q12H, Dosing Weight 84.545, kg, Start date: 07/19/17 17:00:00 TRIGONOMETRY TEACHER, Stop date: 08/18/17 9:00:00 CDT Notes: (Same as: Tikosyn)Providers should enter the orders via the "Dofetilide I nitiation Orders MPP" to ensure compliance with the REMS program. Start Date: 07/19/17 Stop Date: 07/23/17 Status: Discontinued dofetilide 500 mcg oral capsule 500 microgram=1 cap, PO, Q12H, # 30 cap, 0 Refill(s), [facility] [id number] Start Date: 07/23/17 Stop Date: 10/10/17 Status: Discontinued glucagon 1 mg, Route: IM, Drug form: PDR/INJ, PRN, Dosing Weight 84.545, kg, PRN Blood Gl ucose Results, Start date: 07/18/17 3:52:00 TRIGONOMETRY TEACHER, Duration: 30 day, Stop date: 4:51:00 CDT Start Date: 07/18/17 Stop Date: 07/23/17 Status: Discontinued GoLYTELY 4,000 ml, Route: PO, Drug Form: PDR/REC, Dosing Weight 84.545, kg, ONCE, Start d ate: 07/20/17 17:00:00 TRIGONOMETRY TEACHER, Stop date: 07/20/17 17:00:00 TRIGONOMETRY TEACHER Notes: (polyethylene glycol electrolyte solution 4 Liter bottle) (Same as: Gol ytely, Colyte) Start Date: 07/20/17 Stop Date: 07/20/17 Status: Completed Hemorrhoidal Cooling Gel 1 appl, Route: MO, QID, Start date: 07/21/17 17:00:00 TRIGONOMETRY TEACHER, Duration: 30 day, Sto p date: 08/20/17 13:00:00 CDT Start Date: 07/21/17 Stop Date: 07/21/17 Status: Discontinued heparin 5000 units/mL injectable solution 5,000 unit, 1 mL, Route: SUB-Q, Drug form: INJ, Q8H, Dosing Weight 84.545, kg, S tart date: 07/22/17 16:00:00 TRIGONOMETRY TEACHER, Stop date: 08/21/17 8:00:00 CDT Notes: porcine heparin Start Date: 07/22/17 Stop Date: 07/23/17 Status: Discontinued hydrocortisone 2.5% rectal cream with applicator 1 appl, Route: MO, QID, Drug form: CRM/A, Start date: 07/21/17 14:00:00 TRIGONOMETRY TEACHER, Dur ation: 30 day, Stop date: 08/20/17 13:00:00 CDT Notes: (Same as: Anusol-HC, Proctosol-HC) Start Date: 07/21/17 Stop Date: 07/23/17 Status: Discontinued insulin lispro 1 unit, 0.01 mL, Route: SUB-Q, Drug form: SOLN, Bedtime, Dosing Weight 84.545, k g, PRN Blood Glucose Results, Start date: 07/22/17 19:58:00 TRIGONOMETRY TEACHER, Duration: 30 da y, Stop date: 08/21/17 19:57:00 CDT Notes: (Same as: Humalog ) Roll in palms of hands gently; Do not shake `vigorou sly. "Single Patient Use Only " WASTE: F/P - Black; E - [facility] [address] St able for 28 days at room temperature.Expires in days from Da te Start Date: 07/22/17 Stop Date: 07/23/17 Status: Discontinued insulin lispro 2 unit, 0.02 mL, Route: SUB-Q, Drug form: SOLN, Bedtime, Dosing Weight 84.545, k g, PRN Blood Glucose Results, Start date: 07/22/17 19:58:00 TRIGONOMETRY TEACHER, Duration: 30 da y, Stop date: 08/21/17 19:57:00 CDT Notes: (Same as: Humalog ) Roll in palms of hands gently; Do not shake `vigorou sly. "Single Patient Use Only " WASTE: F/P - Black; E - [facility] [address] [address] able for 28 days at room temperature.Expires in days from Da te Start Date: 07/22/17 Stop Date: 07/23/17 Status: Discontinued insulin lispro 3 unit, 0.03 mL, Route: SUB-Q, Drug form: SOLN, Bedtime, Dosing Weight 84.545, k g, PRN Blood Glucose Results, Start date: 07/22/17 19:58:00 TRIGONOMETRY TEACHER, Duration: 30 da y, Stop date: 08/21/17 19:57:00 CDT Notes: (Same as: Humalog ) Roll in palms of hands gently; Do not shake `vigorou sly. "Single Patient Use Only " WASTE: F/P - Black; E - [facility] [address] able for 28 days at room temperature.Expires in days from Da te Start Date: 07/22/17 Stop Date: 07/23/17 Status: Discontinued insulin lispro 4 unit, 0.04 mL, Route: SUB-Q, Drug form: SOLN, Bedtime, Dosing Weight 84.545, k g, PRN Blood Glucose Results, Start date: 07/22/17 19:58:00 TRIGONOMETRY TEACHER, Duration: 30 da y, Stop date: 08/21/17 19:57:00 CDT Notes: (Same as: Humalog ) Roll in palms of hands gently; Do not shake `vigorou sly. "Single Patient Use Only " WASTE: F/P - Black; E - [facility] [address] [address] able for 28 days at room temperature.Expires in days from Da te Start Date: 07/22/17 Stop Date: 07/23/17 Status: Discontinued insulin lispro 5 unit, 0.05 mL, Route: SUB-Q, Drug form: SOLN, TID-Before Meals, Dosing Weight 84.545, kg, PRN Blood Glucose Results, Start date: 07/18/17 3:52:00 TRIGONOMETRY TEACHER, Duratio n: 30 day, Stop date: 08/17/17 3:51:00 CDT Notes: (Same as: Humalog ) Roll in palms of hands gently; Do not shake `vigorou sly. "Single Patient Use Only " WASTE: F/P - Black; E - [facility] [address] able for 28 days at room temperature.Expires in days from Da te Start Date: 07/18/17 Stop Date: 07/23/17 Status: Discontinued insulin lispro 4 unit, 0.04 mL, Route: SUB-Q, Drug form: SOLN, TID-Before Meals, Dosing Weight 84.545, kg, PRN Blood Glucose Results, Start date: 07/18/17 3:52:00 TRIGONOMETRY TEACHER, Duratio n: 30 day, Stop date: 08/17/17 3:51:00 CDT Notes: (Same as: Humalog ) Roll in palms of hands gently; Do not shake `vigorou sly. "Single Patient Use Only " WASTE: F/P - Black; E - [facility] [address] able for 28 days at room temperature.Expires in days from Da te Start Date: 07/18/17 Stop Date: 07/23/17 Status: Discontinued insulin lispro 3 unit, 0.03 mL, Route: SUB-Q, Drug form: SOLN, TID-Before Meals, Dosing Weight 84.545, kg, PRN Blood Glucose Results, Start date: 07/18/17 3:52:00 TRIGONOMETRY TEACHER, Duratio n: 30 day, Stop date: 08/17/17 3:51:00 CDT Notes: (Same as: Humalog ) Roll in palms of hands gently; Do not shake `vigorou sly. "Single Patient Use Only " WASTE: F/P - Black; E - [facility] [address] able for 28 days at room temperature.Expires in days from Da te Start Date: 07/18/17 Stop Date: 07/23/17 Status: Discontinued insulin lispro 2 unit, 0.02 mL, Route: SUB-Q, Drug form: SOLN, TID-Before Meals, Dosing Weight 84.545, kg, PRN Blood Glucose Results, Start date: 07/18/17 3:52:00 TRIGONOMETRY TEACHER, Duratio n: 30 day, Stop date: 08/17/17 3:51:00 CDT Notes: (Same as: Humalog ) Roll in palms of hands gently; Do not shake `vigorou sly. "Single Patient Use Only " WASTE: F/P - Black; E - [facility] [address] [facility] [address] able for 28 days at room temperature.Expires in days from Da te Start Date: 07/18/17 Stop Date: 07/23/17 Status: Discontinued insulin lispro 1 unit, 0.01 mL, Route: SUB-Q, Drug form: SOLN, TID-Before Meals, Dosing Weight 84.545, kg, PRN Blood Glucose Results, Start date: 07/18/17 3:52:00 TRIGONOMETRY TEACHER, [place] n: 30 day, Stop date: 08/17/17 3:51:00 CDT Notes: (Same as: Humalog ) Roll in palms of hands gently; Do not shake `rafiqorou sly. "Single Patient Use Only " WASTE: F/P - Black; E - [facility] [address] [facility] [address] able for 28 days at room temperature.Expires in days from Da te Start Date: 07/18/17 Stop Date: 07/23/17 Status: Discontinued lisinopril 5 mg, Route: PO, Drug form: TAB, Daily, Dosing Weight 84.545, kg, Start date: 12:52:00 TRIGONOMETRY TEACHER, Duration: 30 day, Stop date: 08/19/17 9:00:00 CDT Start Date: 07/20/17 Stop Date: 07/20/17 Status: Discontinued losartan 100 mg, 2 tab, Route: PO, Drug form: TAB, Daily, Dosing Weight 84.545, kg, Prior ity: STAT, Start date: 07/19/17 7:04:00 TRIGONOMETRY TEACHER, Stop date: 08/17/17 9:00:00 CDT Notes: (Same as: Cristiane) Start Date: 07/19/17 Stop Date: 07/23/17 Status: Discontinued losartan 50 mg oral tablet 100 mg=2 tab, PO, Daily, # 60 tab, 0 Refill(s), [id number] Start Date: 07/23/17 Stop Date: 10/05/17 Status: Completed magnesium oxide 800 mg, 2 tab, Route: PO, Drug form: TAB, PRN, Dosing Weight 84.545, kg, PRN Abn ormal Lab Result, For NON-ICU Patients Only., Start date: 07/20/17 5:43:00 TRIGONOMETRY TEACHER, Duration: 30 day, Stop date: 08/19/17 6:42:00 CDT Notes: (Same as: Mag-Ox 400)Magnesium oxide [id number] elemental magnesiumDose= ____mg magnesium oxide (___mg elemental magnesium) Start Date: 07/20/17 Stop Date: 07/23/17 Status: Discontinued magnesium sulfate 2 gm, 50 mL, Route: IVPB, Drug form: INJ, PRN, Dosing Weight 84.545, kg, PRN Abn ormal Lab Result, For NON-ICU Patients Only., Start date: 07/20/17 5:43:00 TRIGONOMETRY TEACHER, Duration: 30 day, Stop date: 08/19/17 6:42:00 CDT Notes: WASTE: F/P - Sink; E - Municipal Trash Bin Start Date: 07/20/17 Stop Date: 07/23/17 Status: Discontinued magnesium sulfate 1 gm, 100 mL, Route: IVPB, Drug form: INJ, PRN, Dosing Weight 84.545, kg, PRN Ab normal Lab Result, For NON-ICU Patients Only., Start date: 07/20/17 5:43:00 TRIGONOMETRY TEACHER, Duration: 30 day, Stop date: 08/19/17 6:42:00 CDT Notes: WASTE: F/P - Sink; E - Municipal Trash Bin Start Date: 07/20/17 Stop Date: 07/23/17 Status: Discontinued metFORMIN 500 mg, PO, BID, 0 Refill(s) Start Date: 07/18/17 Stop Date: 10/05/17 Status: Discontinued pantoprazole 80 mg + Sodium Chloride 0.9% IV 100 mL 100 mL, Rate: 10 ml/hr, Infuse over: 10 hr, Route: IVPB, Dosing Weight 84.545 kg , Total Volume: 100, Infuse at 8 mg / hr for 72 hours for GI bleeding, Start earle e: 07/17/17 21:04:00 TRIGONOMETRY TEACHER, Duration: 72 hr, Stop date: 07/20/17 21:03:00 TRIGONOMETRY TEACHER, 2.0 2, m2 Start Date: 07/17/17 Stop Date: 07/20/17 Status: Completed pantoprazole 80 mg + Sodium Chloride 0.9% IV 100 mL 100 mL, Rate: 10 ml/hr, Infuse over: 10 hr, Route: IVPB, Dosing Weight 84.545 kg , Total Volume: 100, Infuse at 8 mg / hr for 72 hours for GI bleeding, Start earle e: 07/20/17 22:22:00 TRIGONOMETRY TEACHER, Stop date: 07/23/17 22:21:00 TRIGONOMETRY TEACHER, 2.02, m2 Start Date: 07/20/17 Stop Date: 07/21/17 Status: Discontinued Plavix 75 mg, 1 tab, Route: PO, Drug form: TAB, Daily, Dosing Weight 84.545, kg, Start date: 07/22/17 9:00:00 TRIGONOMETRY TEACHER, Duration: 30 day, Stop date: 08/20/17 9:00:00 CDT Notes: (Same As: Plavix) Start Date: 07/22/17 Stop Date: 07/23/17 Status: Discontinued potassium chloride 20 mEq, 1 tab, Route: PO, Drug form: ERTAB, PRN, Dosing Weight 84.545, kg, PRN A bnormal Lab Result, For NON-ICU Patients Only, Start date: 07/20/17 5:43:00 TRIGONOMETRY TEACHER, Duration: 30 day, Stop date: 08/19/17 6:42:00 CDT Notes: (Same as: K-Dur 20)"Do Not Crush" With food and full glass of water Start Date: 07/20/17 Stop Date: 07/23/17 Status: Discontinued potassium chloride 10 mEq, 50 mL, Route: IVPB, Drug form: INJ, PRN, Dosing Weight 84.545, kg, PRN A bnormal Lab Result, For NON-ICU Patients Only, Start date: 07/20/17 5:43:00 TRIGONOMETRY TEACHER, Duration: 30 day, Stop date: 08/19/17 6:42:00 CDT Notes: (Same as: KCL) Infuse no faster than 10mEq/hr if given peripherally Start Date: 07/20/17 Stop Date: 07/23/17 Status: Discontinued potassium chloride 20 mEq, 15 mL, Route: NJ, Drug form: LIQ, PRN, Dosing Weight 84.545, kg, PRN Abn ormal Lab Result, For NON-ICU Patients Only, Start date: 07/20/17 5:43:00 TRIGONOMETRY TEACHER, D uration: 30 day, Stop date: 08/19/17 6:42:00 CDT Notes: (Same as: Potassium Chloride) Start Date: 07/20/17 Stop Date: 07/23/17 Status: Discontinued potassium phosphate + Sodium Chloride 0.9% IV 250 mL 15 mmol, 5 mL, Route: IVPB, PRN, Dosing Weight 84.545, kg, PRN Abnormal Lab Resu lt, For NON-ICU Patients Only., Start date: 07/20/17 5:43:00 TRIGONOMETRY TEACHER, Duration: 30 d ay, Stop date: 08/19/17 6:42:00 CDT Notes: (Same as: K Phosphate.) 1 mMol phoshate has 1.47 mEq potassium Infuse o laurent 4 hours Start Date: 07/20/17 Stop Date: 07/23/17 Status: Discontinued potassium phosphate + Sodium Chloride 0.9% IV 250 mL 30 mmol, 10 mL, Route: IVPB, PRN, Dosing Weight 84.545, kg, PRN Abnormal Lab Res ult, For NON-ICU Patients Only., Start date: 07/20/17 5:43:00 TRIGONOMETRY TEACHER, Duration: 30 day, Stop date: 08/19/17 6:42:00 CDT Notes: (Same as: K Phosphate.) 1 mMol phoshate has 1.47 mEq potassium Infuse o laurent 4 hours Start Date: 07/20/17 Stop Date: 07/23/17 Status: Discontinued potassium phosphate-sodium phosphate 250 mg-280 mg-160 mg oral powder for recons titution 2 pkt, Route: PO, Drug Form: PDR/REC, Dosing Weight 84.545, kg, PRN, PRN Abnorma l Lab Result, For NON-ICU Patients Only, Start date: 07/20/17 5:43:00 TRIGONOMETRY TEACHER, Durat ion: 30 day, Stop date: 08/19/17 6:42:00 CDT Notes: (Same as: Phos-NaK) Each 1.5 gm pkt has 250mg phosphorous. Mix w/2.5oz w ater and stir. Start Date: 07/20/17 Stop Date: 07/23/17 Status: Discontinued Preparation H Cooling Gel 0.25% rectal 1 appl, Route: MO, QID, Start date: 07/21/17 13:00:00 TRIGONOMETRY TEACHER, Duration: 30 day, Sto p date: 08/20/17 9:00:00 CDT Start Date: 07/21/17 Stop Date: 07/21/17 Status: Discontinued Protonix 80 mg, Route: IVP, Drug form: INJ, ONCE, Dosing Weight 84.545, kg, Priority: STA T, Start date: 07/17/17 21:05:00 TRIGONOMETRY TEACHER, Stop date: 07/17/17 21:05:00 TRIGONOMETRY TEACHER Start Date: 07/17/17 Stop Date: 07/17/17 Status: Completed Sodium Chloride 0.9% (titrate) 250 mL 250 mL, Rate: To prime line and flush remaining blood products., Dosing Weight 8 4.545, kg, Route: IV, Total Volume: 250, Priority: Routine, Start Date: 07/18/17 3:35:00 TRIGONOMETRY TEACHER, Duration: 30 day, Stop date: 08/17/17 3:34:00 CDT, Replace Every: 24 hr Start Date: 07/18/17 Stop Date: 07/23/17 Status: Discontinued Sodium Chloride 0.9% (titrate) 250 mL 250 mL, Rate: To prime line and flush remaining blood products., Dosing Weight 8 4.545, kg, Route: IV, Total Volume: 250, Start Date: 07/19/17 14:02:00 TRIGONOMETRY TEACHER, Dura tion: 30 day, Stop date: 08/18/17 14:01:00 CDT, Replace Every: 24 hr Start Date: 07/19/17 Stop Date: 07/23/17 Status: Discontinued Sodium Chloride 0.9% (titrate) 250 mL 250 mL, Rate: To prime line and flush remaining blood products., Dosing Weight 8 4.545, kg, Route: IV, Total Volume: 250, Priority: Routine, Start Date: 07/18/17 7:38:00 TRIGONOMETRY TEACHER, Duration: 30 day, Stop date: 08/17/17 7:37:00 CDT, Replace Every: 24 hr Start Date: 07/18/17 Stop Date: 07/23/17 Status: Discontinued sodium phosphate + Sodium Chloride 0.9% IV 250 mL 30 mmol, 10 mL, Route: IVPB, PRN, Dosing Weight 84.545, kg, PRN Abnormal Lab Res ult, For NON-ICU Patients Only., Start date: 07/20/17 5:43:00 TRIGONOMETRY TEACHER, Duration: 30 day, Stop date: 08/19/17 6:42:00 CDT Start Date: 07/20/17 Stop Date: 07/23/17 Status: Discontinued sodium phosphate + Sodium Chloride 0.9% IV 250 mL 15 mmol, 5 mL, Route: IVPB, PRN, Dosing Weight 84.545, kg, PRN Abnormal Lab Resu lt, For NON-ICU Patients Only., Start date: 07/20/17 5:43:00 TRIGONOMETRY TEACHER, Duration: 30 d ay, Stop date: 08/19/17 6:42:00 CDT Start Date: 07/20/17 Stop Date: 07/23/17 Status: Discontinued Results BLOOD BANK RESULTS 1 2 3 Most recent to oldest [Reference Range]: O POS *Unknown* (07/20/17 3:00 AM) O POS *Unknown* (07/17/17 3:48 PM) ABO/Rh Negative (07/20/17 3:00 AM) Negative (07/17/17 3:48 PM) Antibody Scrn Product available (07/19/17 2:02 PM) Product available (07/19/17 2:01 PM) Product available (07/18/17 9:34 AM) RBC product ELECTROLYTES 1 2 3 Most recent to oldest [Reference Range]: 142 mEq/L (07/23/17 5:06 AM) 143 mEq/L (07/22/17 3:40 AM) 142 mEq/L (07/21/17 3:20 AM) Sodium Lvl [135-145 mEq/L] 3.9 mEq/L (07/23/17 5:06 AM) 3.9 mEq/L (07/22/17 3:40 AM) 3.5 mEq/L (07/21/17 3:20 AM) Potassium Lvl [3.5-5.1 mEq/L] 108 mEq/L (07/23/17 5:06 AM) 109 mEq/L (07/22/17 3:40 AM) 108 mEq/L (07/21/17 3:20 AM) Chloride Lvl [95-109 mEq/L] 25 mEq/L (07/23/17 5:06 AM) 26 mEq/L (07/22/17 3:40 AM) 25 mEq/L (07/21/17 3:20 AM) CO2 [24-32 mEq/L] 12.9 mEq/L (07/23/17 5:06 AM) 11.9 mEq/L (07/22/17 3:40 AM) 12.5 mEq/L (07/21/17 3:20 AM) AGAP [10.0-20.0 mEq/L] CHEM PANEL 1 2 3 Most recent to oldest [Reference Range]: 0.73 mg/dL (07/23/17 5:06 AM) 0.69 mg/dL (07/22/17 3:40 AM) 0.76 mg/dL (07/21/17 3:20 AM) Creatinine Lvl [0.50-1.40 mg/dL] 93 mL/min/1.73m2 1 *NA* (07/23/17 5:06 AM) 95 mL/min/1.73m2 2 *NA* (07/22/17 3:40 AM) 91 mL/min/1.73m2 3 *NA* (07/21/17 3:20 AM) eGFR 7 mg/dL (07/23/17 5:06 AM) 5 mg/dL *LOW* (07/22/17 3:40 AM) 8 mg/dL (07/21/17 3:20 AM) BUN [7-22 mg/dL] 91 mg/dL (07/23/17 5:06 AM) 85 mg/dL (07/22/17 3:40 AM) 102 mg/dL *HI* (07/21/17 3:20 AM) Glucose Lvl [70-99 mg/dL] 9.0 mg/dL (07/23/17 5:06 AM) 8.7 mg/dL (07/22/17 3:40 AM) 8.6 mg/dL (07/21/17 3:20 AM) Calcium Lvl [8.5-10.5 mg/dL] 4.2 mg/dL (07/23/17 5:06 AM) 4.5 mg/dL (07/22/17 3:40 AM) 3.6 mg/dL (07/21/17 3:20 AM) Phosphorus [2.5-4.5 mg/dL] 2.2 mg/dL (07/23/17 5:06 AM) 2.2 mg/dL (07/22/17 3:40 AM) 2.0 mg/dL (07/21/17 3:20 AM) Magnesium Lvl [1.8-2.4 mg/dL] 1Result Comment: The eGFR is calculated using the [...] from the National Kidney Disease Education Program ( NKDEP) which additionally recommends that when the eGFR is used in patients with extremes of body mass index for purposes of drug dosing, the eGFR should be mul tiplied by the estimated BMI. 2Result Comment: The eGFR is calculated using the [...] from the [employer] ( [employer]) which additionally recommends that when the eGFR is used in patients with extremes of body mass index for purposes of drug dosing, the eGFR should be mul tiplied by the estimated BMI. 3Result Comment: The eGFR is calculated using the [...] from the [employer] Program ( [employer]) which additionally recommends that when the eGFR is used in patients with extremes of body mass index for purposes of drug dosing, the eGFR should be mul tiplied by the estimated BMI. PARATHYROID PROFILE 1 2 3 Most recent to oldest [Reference Range]: 1.17 mMol/L (07/23/17 5:06 AM) 1.21 mMol/L (07/22/17 3:40 AM) 1.14 mMol/L (07/21/17 3:20 AM) Ca Ion WB [1.05-1.25 mMol/L] 1.21 mMol/L (07/23/17 5:06 AM) 1.21 mMol/L (07/22/17 3:40 AM) 1.14 mMol/L (07/21/17 3:20 AM) Ca Norm WB [1.05-1.25 mMol/L] HEMATOLOGY 1 2 3 Most recent to oldest [Reference Range]: 4.6 K/CMM (07/23/17 5:06 AM) 4.7 K/CMM (07/22/17 4:43 PM) 5.1 K/CMM (07/22/17 3:40 AM) WBC [3.7-10.4 K/CMM] 2.82 M/CMM *LOW* (07/23/17 5:06 AM) 2.74 M/CMM *LOW* (07/22/17 4:43 PM) 2.66 M/CMM *LOW* (07/22/17 3:40 AM) RBC [4.70-6.10 M/CMM] 8.3 g/dL *LOW* (07/23/17 5:06 AM) 8.0 g/dL *LOW* (07/22/17 4:43 PM) 7.8 g/dL *LOW* (07/22/17 3:40 AM) Hgb [14.0-18.0 g/dL] 24.9 % *LOW* (07/23/17 5:06 AM) 24.2 % *LOW* (07/22/17 4:43 PM) 23.2 % *LOW* (07/22/17 3:40 AM) Hct [42.0-54.0 %] 88.1 fL (07/23/17 5:06 AM) 88.2 fL (07/22/17 4:43 PM) 87.2 fL (07/22/17 3:40 AM) MCV [80.0-94.0 fL] 29.4 pg (07/23/17 5:06 AM) 29.3 pg (07/22/17 4:43 PM) 29.5 pg (07/22/17 3:40 AM) MCH [27.0-31.0 pg] 33.4 g/dL (07/23/17 5:06 AM) 33.2 g/dL (07/22/17 4:43 PM) 33.8 g/dL (07/22/17 3:40 AM) MCHC [32.0-36.0 g/dL] 16.4 % *HI* (07/23/17 5:06 AM) 16.5 % *HI* (07/22/17 4:43 PM) 16.3 % *HI* (07/22/17 3:40 AM) RDW [11.5-14.5 %] 8.4 fL (07/23/17 5:06 AM) 8.5 fL (07/22/17 4:43 PM) 8.5 fL (07/22/17 3:40 AM) MPV [7.4-10.4 fL] 128 K/CMM *LOW* (07/23/17 5:06 AM) 125 K/CMM *LOW* (07/22/17 4:43 PM) 113 K/CMM *LOW* (07/22/17 3:40 AM) Platelet [133-450 K/CMM] 65.8 % (07/23/17 5:06 AM) 66.2 % (07/22/17 4:43 PM) 64.6 % (07/22/17 3:40 AM) Segs [45.0-75.0 %] 19.6 % *LOW* (07/23/17 5:06 AM) 18.6 % *LOW* (07/22/17 4:43 PM) 21.4 % (07/22/17 3:40 AM) Lymphocytes [20.0-40.0 %] 8.5 % (07/23/17 5:06 AM) 10.3 % (07/22/17 4:43 PM) 9.0 % (07/22/17 3:40 AM) Monocytes [2.0-12.0 %] 5.2 % *HI* (07/23/17 5:06 AM) 4.1 % *HI* (07/22/17 4:43 PM) 4.3 % *HI* (07/22/17 3:40 AM) Eosinophils [0.0-4.0 %] 0.9 % (07/23/17 5:06 AM) 0.8 % (07/22/17 4:43 PM) 0.7 % (07/22/17 3:40 AM) Basophils [0.0-1.0 %] 3.0 K/CMM (07/23/17 5:06 AM) 3.1 K/CMM (07/22/17 4:43 PM) 3.3 K/CMM (07/22/17 3:40 AM) Segs-Bands # [1.5-8.1 K/CMM] 0.9 K/CMM *LOW* (07/23/17 5:06 AM) 0.9 K/CMM *LOW* (07/22/17 4:43 PM) 1.1 K/CMM (07/22/17 3:40 AM) Lymphocytes # [1.0-5.5 K/CMM] 0.4 K/CMM (07/23/17 5:06 AM) 0.5 K/CMM (07/22/17 4:43 PM) 0.5 K/CMM (07/22/17 3:40 AM) Monocytes # [0.0-0.8 K/CMM] 0.2 K/CMM (07/23/17 5:06 AM) 0.2 K/CMM (07/22/17 4:43 PM) 0.2 K/CMM (07/22/17 3:40 AM) Eosinophils # [0.0-0.5 K/CMM] 14.1 seconds (07/23/17 5:06 AM) 15.4 seconds *HI* (07/22/17 3:40 AM) 13.3 seconds (07/17/17 3:48 PM) PT [12.0-14.7 seconds] 1.09 (07/23/17 5:06 AM) 1.21 *HI* (07/22/17 3:40 AM) 1.01 (07/17/17 3:48 PM) INR [0.85-1.17] 32.4 seconds (07/23/17 5:06 AM) 33.1 seconds (07/17/17 3:48 PM) PTT [22.9-35.8 seconds] Immunizations Given and Recorded Vaccine Date Status Refusal Reason pneumococcal 13-valent vaccine 07/07/17 Given Procedures Procedure Date Related Diagnosis Body Site Status AVR - Aortic valve replacement Completed Cardiac pacemaker procedure Completed Cholecystectomy Completed Tonsillectomy Completed Social History Social History Type Response Substance Abuse Use: None. Sexual Sexually active: Yes. Alcohol Never Smoking Status Never smoker; Ready to change: No; Concerns about tobacco use in household: No; Exposure to Tobacco Smoke None; Cigarette Smoking Last 365 Days No; Reg Smoking Cessation Counseling No entered on: 10/04/17 Assessment and Plan Extracted from: Title: Cardiology Attending Author: Portillo Mortensen MD Date: 07/23/17 Progress Note I have seen the patient in collaboration with the housestaff (resident and/or fellow). I have examined the patient independently, and have reviewed any history, radiographic and cardiac imaging, and diagnostic testing. I agree with the findings and plan outlined in the note by the resident with the following additions/modifications: - s/p SAVR with GI bleed and SVT -s/p colonoscopy with AVM and polyp -Hgb stable now for 48 hours s/p restarting DAPT and colonoscopy -SVT controlled with dofetilide, monitor QT -ready for d/c home Extracted from: Title: CCU Discharge summary Author: Jeff Escobar MD Date: 07/23/17 Admission Attending: Portillo Mortensen Discharge Attending: Portillo Mortensen Admission Date-Discharge Date: Admission Diagnosis: CAD with 3 vessel disease, HTN, SVT, Acute lower GIB w/melena, anemia due to acute blood loss. Discharge Diagnosis: CAD with 3 vessel disease, HTN, SVT, Acute lower GIB w/melena, anemia due to acute blood lss. 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 PMH also includes bilaterally small inguinal hernias. After miniAVR he was sent to CVICU and eventually weaned from and extubated after diuresis. He was treated for post op HTN with nicardipine drip and was treated for ileus. 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 Prior to this procedure he did have significant [place], though he denies chest pain. He was previously very active and played volleyball until 3 months ago. After his procedure he has episodes of extreme fatigue and describes his course at home as "up and down". Starting yesterday 07/16 he began to have x5 episodes of melena per day with photographs that he showed me. The stool appears maroon with blood in the toilet bowl. He did describe at least 1 episode as dark and similar in appearance to coffee grounds. He does describe episodes of dizziness, though he continues to deny chest pain. He was supposed to see Dr. Cook tomorrow and just saw Dr. Mckeon. He is on DAPT for recent AVR. In ED he did get PPI drip as well as 1L fld bolus. He was found to be in SVT regular narrow complex to 160's, but this resolved on valsalva maneuver after 1L of fld was giv en. Now i sinus tach at 100. Patient's vitals otherwise WNL. HTN with SBP to 150's. BMP and coags WNL. Did have a 2 pt HGB drop from 10 to 7.7. GI was called and said they will see patient tomorrow and place a PPI drip in the meantime. He is admitted to [facility] for further eval and workup of GIB. Hospital Course: This patient had a fairly sraightforward hospital course. He got endscopy day 1 which was negative. He got colonscopy 3 days later which revealed 2 AVM and 1 polyp all of which were endoscpically treated. He needed 3U of blood in between and had frankly melanotic stools. He was observed 48 hrs after colonscopy and had no more bleeds or drop in HGB. As such DAPT was restarted prior to DC. He had 2 runs of SVT which were resolved on valsalva. Started on tikosyn by EP and obs for 72 hrs without QTC prolongation. Diagnostic tests: endopscy, colonscopy Discharge Medications: Discharge Condition: Stable Followup: Wil SOL 2 wks Nehemiah 10 days Pankaj Bush PCP 10 days as needed General: pt feels well. No complaints overnight. HEENT: moist oral mucosa, EOMI Neck: Trachea midline, no thyromegaly Cardiovascular: RRR, no murmurs gallops or rubs Pulmonary: CTAB Abdomen: soft , not tender, not distended , bowel sounds present lower Ext: No LE edema, no cyanosis Skin: no rash, or jaundice Neuro: AAO 3, no motor or sensory de Jeff Escobar MD, Internal Medicine, PGY-2 Extracted from: Title: EP Consult Author: Isiah Grande Date: 07/19/17 MD Impression and Plan Mr. Grande is a 72 yo man w PMH of severe aortic stenosis, s/p surgical aortic valve replacement on 06/24/2017. He was then having symptomatic bradycardia with wenckebach AV block and required a dual chamber PPM on 07/05/17. He wasdischarged home in stable condition. He has returned to the hospital with a GI bleed. While in the hospital he has been noted to have several runs of supraventricular tachycrdia w HR of aprpox 160 BPM. He feels dizzy when he gets this tachycardia. Paroxysmal Supraventricular Tachycardia: - EKG's and telemetry reviewed and this appears most consistent with an ectopic atrial tachycardia - He has not been able to tolerate beta blockers well in the past and given his CAD and structural heart disease, antiarrhythmic options are limited - Recommend to start Dofetilide 500 mg PO BID and follow the Dofetilide dosing protocol - Will need to monitor for 6 doses/72 hrs - Daily EKG's - Monitor on telemetry Thank you for the consult. We will continue to monitor. Isiah Grande MD Pressroom Worker ATTENDING NOTE The patient was seen and examined by me with the fellow and I agree with the History/Exam documented. REcent DDDR pacer implant for 2nd degree type I block post SAVR. + CAD. Now found to have frequent episdoes of prolonged SVT consistent with an automatic ectopic atrial tach. He has reportedly been unable to tolerate even small doses of B lisy even with pacing support. As this may be a self-limited arrhythmia, recomend a trial of dofetilide while on telemetry for at least 2 hours. MOnitor QTc carefully during dose titration per protocol. If the arrhythmia becomes chronic, we can consdier ablation of the AT. Vivi H. 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 PMH also includes bilaterally small inguinal hernias. After miniAVR he was sent to CVICU and eventually weaned from and extubated after diuresis. He was treated for post op HTN with nicardipine drip and was treated for ileus. 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 Prior to this procedure he did have significant [place], though he denies chest pain. He was previously very active and played volleyball until 3 months ago. After his procedure he has episodes of extreme fatigue and describes his course at home as "up and down". Starting yesterday 07/16 he began to have x5 episodes of melena per day with photographs that he showed me. The stool appears maroon with blood in the toilet bowl. He did describe at least 1 episode as dark and similar in appearance to coffee grounds. He does describe episodes of dizziness, though he continues to deny chest pain. He was supposed to see Dr. Cook tomorrow and just saw Dr. Mckeon. He is on DAPT for recent AVR. In ED he did get PPI drip as well as 1L fld bolus. He was found to be in SVT regular narrow complex to 160's, but this resolved on valsalva maneuver after 1L of fld was giv en. Now i sinus tach at 100. Patient's vitals otherwise WNL. HTN with SBP to 150's. BMP and coags WNL. Did have a 2 pt HGB drop from 10 to 7.7. GI was called and said they will see patient tomorrow and place a PPI drip in the meantime. He is admitted to [facility] for further eval and workup of GIB. Home meds: atorva 80, DAPT, lasix 20 daily, hydralazine 50 q6, HCTZ 25 daily, IMDUR 30 q12, losartan 50 daily, metformin 500 daily, 12 pt REVIEW OF SYSTEMS negative except as mentioned in HPI Histories Past Medical History: Resolved Coronary artery disease (46082156): Resolved. Diabetes (388440366): Resolved. Hypertension (8427729145): Resolved. Aortic valve disease (40514689): Resolved. Family History: No family history items have been selected or recorded. Procedure history: Cholecystectomy ([id number]). Tonsillectomy ([id number]). Social History Social & Psychosocial Habits Tobacco 06/23/2017 Use: Never smoker Ready to change: No Concerns about tobacco use in household: No Exposure to Tobacco Smoke None Cigarette Smoking Last 365 Days No Reg Smoking Cessation Counseling No Objective: VitalsTmp(F)DfnscLKMGHzN1WCW4 07/17 23:48----[id number]/480348--- 07/17 23:16----[id number]/955768--- 07/17 23:00----[id number]/270596--- 07/17 22:00----78008/62--97--- 07/17 21:00----705785/73--99--- 24 Hr Tmax: 98.8F (37.11c) at 07/17 15:35Vital Signs are the last 5 in the past 48 hours. DateWt(kg)Wt(lb)Ht(cm)Ht(in)Method 07/17 (initial) 84.55 186.00Estimated 70.18 67.00Stated General: a/ox4, no acute distress, conversant and pleasant, at bedside HEENT: moist oral mucosa, EOMI Neck: Trachea midline, no thyromegaly Cardiovascular: RRR, no murmurs gallops or rubs Pulmonary: CTAB except some scattered bisaliar crackles Abdomen: soft , not tender, not distended , bowel sounds present, non incarcerated bilat inguinal hernias felt lower Ext: No LE edema, no cyanosis Skin: no rash, or jaundice Neuro: AAO 3, no motor or sensory deficit, cranial nerves II through XII grossly intact Rectal: 1 external hemorhoid, no bleeding noted Data: 24hr Labs 07/17 1548 ABO/RhO POS Antibody ScrnNegative Glucose Uyy755 H BUN18 Creatinine Lvl0.94 Sodium Bnm148 Potassium Lvl3.9 Chloride Tpu870 CO224 AGAP14.9 Calcium Lvl9.3 eGFR81 WBC7.6 RBC3.31 L Hgb9.4 L Hct28.5 L MCV86.1 MCH28.3 MCHC32.8 RDW18.3 H Hoiunhbu502 MPV8.3 Segs73.8 Monocytes8.0 Agwqwljrode91.0 L Eosinophils1.6 Basophils0.6 Segs-Bands #5.6 Lymphocytes #1.2 Monocytes #0.6 Eosinophils #0.1 PT13.3 INR1.01 PTT33.1 Assessment/Plan: 72 yo M PMH HTN, NIDDM, 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 He is admitted for what looks like lower GIB w/melena, though possibly also has hematochezia. #CV - CAD: cont home statin. Will hold ARB and BB in setting of acute bleed. Will continue ASA but hold plavix given recent TAVR - Severe s/p mini SAVR: cont ASA but hold plavix Pre: Area 0.76, no other values reported in [facility] Post: EOA=1.9 cm2, mean gradient=14 mmHg, peak velocity=2.5 m/s - HTN: will hold off therapy (home losartan 50, hydralazine 50 q6, and IMDUR 30 BID given current GIB. *of note no BB due to bradycardia last discharge. Will restart as tolerated - SVT: The patient did have SVT regular monomorphic to 160. He got 1L of fluids and we had him blow into a syringe without the plunger removed whcih resolved his SVT. Now in sinus tach at 100. #Neuro - no acute issues #Pulm - no acute issues. Will f/u CXR. Will order VEP considering his crackles and coarse breath sounds and recent hx of surgery #GI - melena: will keep on PPI drip, s/p 1L of flds and will transfuse as needed. Consent in chart. Type and screen done. GI has already been called. Will keep NPO until then. Will not start bowel prep now given GI has not yet seen patient. Q6 CBC. - first day h/h was 9.4--->7.7--->7.1 over about 10 hours. Did order 1U PRBC. #/renal - no acute issues #MSK - will order PT/OT after workup by GI - no acute mgmt for inguinal hernai for now #Endo - T2DM, will have SSI while in house at low dose - diabetic diet #ID - no acute issues Diet: NPO for possible scope tmrw Dispo: home to patient's own and home in [facility] DVT: held for GIB PCP: Dr. [facility] Specialist: Doris SOL physician: Wil Code: full Jeff Escobar MD, Internal Medicine, PGY-2 I have seen and examined the patient with the Resident/Fellow. I agree with the findings and plans above.
--- OUTSIDE RECORDS SUMMARY | 2018-05-05 18:48 | XMS REPORT | Summary of Care ---
Author Author [facility] Organization [facility] Address Unknown Phone Unavailable Encounter LISA Bermudez(MATHIEU) [id number] Date(s): 10/04/17 - 10/10/17 [facility] [address] [facility] provided by [employer] [facility] [employer] [place] [address]- Encounter Diagnosis Weakness (Final) - Discharge Disposition: Home or Self Care Attending Physician: Mook Cerna MD Admitting Physician: Jorge Landrum MD Vital Signs 1 2 3 Most recent to oldest [Reference Range]: 170.18 cm (10/06/17 8:23 PM) 170.18 cm (10/05/17 6:19 AM) 170.18 cm (10/04/17 4:17 PM) Height 98.4 DegF (10/10/17 11:38 AM) 99 DegF (10/10/17 7:00 AM) 98.4 DegF (10/10/17 12:00 AM) Temperature Oral [96.4-99.1 DegF] 136/76 mmHg (10/10/17 5:00 PM) 114/69 mmHg (10/10/17 3:00 PM) 127/65 mmHg (10/10/17 1:00 PM) Blood Pressure [90-140/60-90 mmHg] 18 BRMIN (10/10/17 5:00 PM) 18 BRMIN (10/10/17 3:00 PM) 18 BRMIN (10/10/17 11:00 AM) Respiratory Rate [14-20 BRMIN] 89 bpm (10/06/17 12:22 PM) 82 bpm (10/06/17 8:50 AM) 87 bpm (10/06/17 4:22 AM) Peripheral Pulse Rate [60-100 bpm] 87.727 kg (10/06/17 8:23 PM) 87.727 kg (10/05/17 6:19 AM) 87.273 kg (10/04/17 4:17 PM) Weight 30.29 m2 (10/05/17 6:19 AM) 30.13 m2 (10/04/17 4:17 PM) Body Mass Index Problem List Condition [...] 1hallucinations 2hallucinations 3agitation and confusion 4hallucinations Medications acetaminophen 650 mg, 2 tab, Route: PO, Drug form: TAB, Q4H, Dosing Weight 87.273, kg, PRN For Temp > 100.4 F, Start date: 10/05/17 3:28:00 CDT, Duration: 30 day, Stop date: 11/04/17 3:27:00 CDT Notes: Do not exceed 4 gm/day. (Same as: Tylenol) Start Date: 10/05/17 Stop Date: 10/10/17 Status: Discontinued acetaminophen 650 mg, Route: PO, ONCE, Dosing Weight 87.273, kg, Start date: 10/05/17 3:59:00 CDT, Stop date: 10/05/17 3:59:00 CDT Start Date: 10/05/17 Stop Date: 10/05/17 Status: Completed acetaminophen 650 mg, 2 tab, Route: PO, Drug form: TAB, ONCE, Dosing Weight 87.273, kg, Priori ty: STAT, Start date: 10/04/17 19:53:00 CDT, Stop date: 10/04/17 19:53:00 CDT Notes: Do not exceed 4 gm/day. (Same as: Tylenol) Start Date: 10/04/17 Stop Date: 10/04/17 Status: Completed Advair Diskus 250 mcg-50 mcg inhalation powder 1 puff, INHALATION, BID, 0 Refill(s) Start Date: 10/05/17 Status: Ordered amLODIPine 5 mg, 1 tab, Route: PO, Drug form: TAB, Daily, Dosing Weight 87.727, kg, Priorit y: STAT, Start date: 10/07/17 14:01:00 CDT, Duration: 30 day, Stop date: 8 9:00:00 CDT Notes: (Same as: Norvasc) Start Date: 10/07/17 Stop Date: 10/08/17 Status: Discontinued amLODIPine 10 mg, 1 tab, Route: PO, Drug form: TAB, Daily, Dosing Weight 87.727, kg, Start date: 10/09/17 9:00:00 CDT, Duration: 30 day, Stop date: 11/07/17 9:00:00 CDT Notes: (Same as: Norvasc) Start Date: 10/09/17 Stop Date: 10/10/17 Status: Discontinued amLODIPine 5 mg, 1 tab, Route: PO, Drug form: TAB, ONCE, Dosing Weight 87.727, kg, Start da te: 10/08/17 14:37:00 CDT, Stop date: 10/08/17 14:37:00 CDT Notes: (Same as: Norvasc) Start Date: 10/08/17 Stop Date: 10/08/17 Status: Completed amLODIPine 5 mg oral tablet 5 mg=1 tab, PO, Daily, 0 Refill(s) Start Date: 10/05/17 Stop Date: 10/10/17 Status: Discontinued aspirin 81 mg tablet, enteric coated 81 mg, 1 tab, Route: PO, Drug form: ECTAB, Daily, Dosing Weight 87.273, kg, Star t date: 10/05/17 9:00:00 CDT, Duration: 30 day, Stop date: 11/03/17 9:00:00 CDT Notes: Do not crush or chew.(Same As: Ecotrin) Start Date: 10/05/17 Stop Date: 10/10/17 Status: Discontinued aspirin 81 mg tablet, enteric coated 81 mg=1 tab, PO, Daily, # 90 tab, 3 Refill(s) Start Date: 10/10/17 Stop Date: 10/05/18 Status: Ordered atorvastatin 80 mg, 1 tab, Route: PO, Drug form: TAB, Bedtime, Dosing Weight 87.273, kg, Star t date: 10/05/17 21:00:00 CDT, Duration: 30 day, Stop date: 11/03/17 21:00:00 CD T Notes: Same as Lipitor Start Date: 10/05/17 Stop Date: 10/10/17 Status: Discontinued atorvastatin 80 mg oral tablet 80 mg=1 tab, PO, Bedtime, # 90 tab, 3 Refill(s) Start Date: 10/10/17 Stop Date: 10/05/18 Status: Ordered bisacodyl 10 mg, 1 supp, Route: WV, Drug form: SUPP, Daily, Dosing Weight 87.273, kg, PRN Constipation, Start date: 10/05/17 3:28:00 CDT, Duration: 30 day, Stop date: 10/17 3:27:00 CDT Notes: (Same As: Dulcolax, Bisco-Lax) Start Date: 10/05/17 Stop Date: 10/10/17 Status: Discontinued calcium gluconate + Sodium Chloride 0.9% IV 80 mL 3 gm, 30 mL, Route: IVPB, PRN, Dosing Weight 87.727, kg, PRN Abnormal Lab Result , For NON-ICU Patients Only., Start date: 10/10/17 9:15:00 CDT, Duration: 30 day , Stop date: 11/09/17 9:14:00 CDT Notes: WASTE: F/P - Sink; E - Municipal Trash Bin Start Date: 10/10/17 Stop Date: 10/10/17 Status: Discontinued calcium gluconate + Sodium Chloride 0.9% IV 80 mL 2 gm, 20 mL, Route: IVPB, PRN, Dosing Weight 87.727, kg, PRN Abnormal Lab Result , For NON-ICU Patients Only., Start date: 10/10/17 9:15:00 CDT, Duration: 30 day , Stop date: 11/09/17 9:14:00 CDT Notes: WASTE: F/P - Sink; E - Municipal Trash Bin Start Date: 10/10/17 Stop Date: 10/10/17 Status: Discontinued cefepime + sterile water 10 mL 1 gm, Route: IVPB, [id number], Dosing Weight 87.727, kg, (CrCl >/=50 ml/min), Start date: 10/06/17 20:23:00 CDT, Duration: 7 day, Stop date: 10/13/17 12:23:00 CDT, ABX Indication: Endocarditis/Endovascular Infection Notes: (Same As: Maxipime) MEDICATION WASTE Product Size: 1000 mgProduc t Wasted: ___ mg Start Date: 10/06/17 Stop Date: 10/09/17 Status: Discontinued cefTRIAXone + sterile water 20 mL 2 gm, Route: IVPB, [id number], Dosing Weight 87.727, kg, Priority: STAT, Start date : 10/09/17 8:55:00 CDT, Duration: 7 day, Stop date: 10/15/17 8:55:00 CDT, ABX In dication: Bacteremia Notes: (Same As: Rocephin).Use with 100 mL NS and infuse over 30 min MEDICA TION WASTE Product Size: 2000 mgProduct Wasted: __0_ mg Start Date: 10/09/17 Stop Date: 10/10/17 Status: Discontinued cefTRIAXone 2 g injection 2 gm, IV, Q24H, X 6 week, # 40 box, 0 Refill(s) Start Date: 10/10/17 Stop Date: 11/21/17 Status: Ordered clopidogrel 75 mg, 1 tab, Route: PO, Drug form: TAB, Daily, Dosing Weight 87.273, kg, Start date: 10/05/17 9:00:00 CDT, Duration: 30 day, Stop date: 11/03/17 9:00:00 CDT Notes: (Same As: Plavix) Start Date: 10/05/17 Stop Date: 10/10/17 Status: Discontinued clopidogrel 75 mg oral tablet 75 mg=1 tab, PO, Daily, # 90 tab, 3 Refill(s) Start Date: 10/10/17 Stop Date: 10/05/18 Status: Ordered Cozaar 100 mg, 2 tab, Route: PO, Drug form: TAB, Daily, Start date: 10/10/17 9:00:00 CD T, Duration: 30 day, Stop date: 11/08/17 9:00:00 CDT Notes: (Same as: Cozaar) Start Date: 10/10/17 Stop Date: 10/10/17 Status: Discontinued Dextrose 50% Syringe 25 gm, 50 mL, Route: IVP, Drug Form: INJ, Dosing Weight 87.273, kg, PRN, PRN Blo od Glucose Results, Start date: 10/05/17 3:28:00 CDT, Duration: 30 day, Stop earle e: 11/04/17 3:27:00 CDT Start Date: 10/05/17 Stop Date: 10/10/17 Status: Discontinued Dextrose 50% Syringe 12.5 gm, 25 mL, Route: IVP, Drug Form: INJ, Dosing Weight 87.273, kg, PRN, PRN B lood Glucose Results, Start date: 10/05/17 3:28:00 CDT, Duration: 30 day, Stop d ate: 11/04/17 3:27:00 CDT Start Date: 10/05/17 Stop Date: 10/10/17 Status: Discontinued diphenhydrAMINE 25 mg, 1 cap, Route: PO, Drug form: CAP, Q6H, Dosing Weight 87.273, kg, PRN Itch ing, Start date: 10/05/17 3:28:00 CDT, Duration: 30 day, Stop date: 11/04/17 3:2 7:00 CDT Notes: (Same as: Benadryl) Start Date: 10/05/17 Stop Date: 10/10/17 Status: Discontinued docusate sodium 100 mg oral capsule 100 mg, 1 cap, Route: PO, Drug form: CAP, BID, Dosing Weight 87.273, kg, Start d ate: 10/05/17 9:00:00 CDT, Duration: 30 day, Stop date: 11/03/17 17:00:00 CDT Notes: (Same as: Colace) (Do Not Crush) Start Date: 10/05/17 Stop Date: 10/10/17 Status: Discontinued docusate-senna 50 mg-8.6 mg oral tablet 1 tab, Route: PO, Drug Form: TAB, Dosing Weight 87.727, kg, Daily, Start date: 0 10/09/17 14:30:00 CDT, Duration: 30 day, Stop date: 11/08/17 9:00:00 CDT Notes: (Same as Senkalenot-S) Equiv. to Iman-Colace. Start Date: 10/09/17 Stop Date: 10/10/17 Status: Discontinued docusate-senna 50 mg-8.6 mg oral tablet 1 tab, PO, Daily, X 14 day, # 14 tab, 10 Refill(s) Start Date: 10/10/17 Stop Date: 03/13/18 Status: Ordered dofetilide 500 microgram, 1 cap, Route: PO, Drug form: CAP, Q12H, Start date: 10/05/17 9:00 :00 CDT, Duration: 30 day, Stop date: 11/03/17 21:00:00 CDT Notes: (Same as: Tikosyn) Start Date: 10/05/17 Stop Date: 10/10/17 Status: Discontinued dofetilide 500 mcg oral capsule 500 microgram=1 cap, PO, Q12H, # 120 cap, 0 Refill(s) Start Date: 10/10/17 Stop Date: 12/09/17 Status: Ordered dofetilide 500 mcg oral capsule dofetilide 500 mcg oral capsule, 500 microgram, Drug form: CAP, Route: PO, Q12H, 10/05/17 9:00:00 CDT, Duration: 30 day, Stop date: 11/03/17 21:00:00 CDT Start Date: 10/05/17 Stop Date: 10/05/17 Status: Deleted Elemental Iron 25 mg, Route: PO, Drug form: TAB, Daily, Dosing Weight 87.727, kg, Start date: 0 10/10/17 9:00:00 CDT, Duration: 30 day, Stop date: 11/08/17 9:00:00 CDT Start Date: 10/10/17 Stop Date: 10/09/17 Status: Discontinued ferrous sulfate 325 mg, 1 tab, Route: PO, Drug form: ECTAB, Daily, Dosing Weight 87.727, kg, Sta rt date: 10/10/17 9:00:00 CDT, Duration: 30 day, Stop date: 11/08/17 9:00:00 CDT Notes: Give with food. "Do Not Crush" Start Date: 10/10/17 Stop Date: 10/10/17 Status: Discontinued ferrous sulfate 325 mg oral enteric coated tablet 325 mg=1 tab, PO, Daily, # 90 tab, 2 Refill(s) Start Date: 10/10/17 Stop Date: 07/07/18 Status: Ordered Fish Oil 1200 mg oral capsule 1,200 mg=1 cap, PO, TID, 0 Refill(s) Start Date: 10/05/17 Status: Ordered gentamicin + Sodium Chloride 0.9% IV 100 mL 80 mg, 2 mL, Route: IVPB, ONCE, Dosing Weight 87.727, kg, Start date: 10/06/17 2 2:50:00 CDT, Stop date: 10/06/17 22:50:00 CDT Notes: TIME CRITICAL MEDICATION(Same as Garamycin) For adult patients only: Roun d to nearest 10 mg per Medical Staff approval Start Date: 10/06/17 Stop Date: 10/07/17 Status: Completed glucagon 1 mg, Route: IM, Drug form: PDR/INJ, PRN, Dosing Weight 87.273, kg, PRN Blood Gl ucose Results, Start date: 10/05/17 3:28:00 CDT, Duration: 30 day, Stop date: 3:27:00 CDT Start Date: 10/05/17 Stop Date: 10/10/17 Status: Discontinued hydrALAZINE 20 mg, 1 mL, Route: IVP, Drug form: INJ, Q4H, Dosing Weight 87.727, kg, PRN See Nurse's Notes, Start date: 10/10/17 7:55:00 CDT, Duration: 30 day, Stop date: 7:54:00 CDT, SBP >160 Notes: (Same as: Apresoline)Push over 5 minutes Start Date: 10/10/17 Stop Date: 10/10/17 Status: Discontinued hydrALAZINE 50 mg, 1 tab, Route: PO, Drug form: TAB, Q8H, Dosing Weight 87.727, kg, Start da te: 10/10/17 8:00:00 CDT, Duration: 30 day, Stop date: 11/09/17 0:00:00 CDT Notes: (Same as: Apresoline) May interfere w/enteral feedings Take With Food Start Date: 10/10/17 Stop Date: 10/10/17 Status: Canceled hydrALAZINE 25 mg, 1 tab, Route: PO, Drug form: TAB, Q6H, Dosing Weight 87.727, kg, Priority : NOW, Start date: 10/09/17 18:19:00 CDT, Duration: 30 day, Stop date: 11/08/17 18:00:00 CDT Notes: (Same as: Apresoline) May interfere w/enteral feedings Take With Food. Start Date: 10/09/17 Stop Date: 10/10/17 Status: Discontinued hydrALAZINE 20 mg, Route: IVP, ONCE, Dosing Weight 87.727, kg, Start date: 10/10/17 7:55:00 CDT, Stop date: 10/10/17 7:55:00 CDT Start Date: 10/10/17 Stop Date: 10/10/17 Status: Discontinued hydrALAZINE 25 mg oral tablet 25 mg, 1 tab, Route: PO, Drug form: TAB, ONCE, Dosing Weight 87.727, kg, Start d ate: 10/10/17 5:08:00 CDT, Stop date: 10/10/17 5:08:00 CDT Notes: (Same as: Apresoline) May interfere w/enteral feedings Take With Food. Start Date: 10/10/17 Stop Date: 10/10/17 Status: Completed hydrochlorothiazide 12.5 mg, PO, Daily, 0 Refill(s) Start Date: 10/05/17 Stop Date: 10/05/17 Status: Discontinued hydrochlorothiazide 25 mg, Route: PO, Drug form: TAB, Daily, Dosing Weight 87.727, kg, Start date: 0 10/07/17 9:57:00 CDT, Duration: 30 day, Stop date: 11/06/17 9:00:00 CDT Start Date: 10/07/17 Stop Date: 10/07/17 Status: Discontinued hydrochlorothiazide 25 mg oral tablet 25 mg, 1 tab, Route: PO, Drug form: TAB, Daily, Start date: 10/10/17 9:00:00 CDT , Duration: 30 day, Stop date: 11/08/17 9:00:00 CDT Notes: (Same as: Hydrodiuril) With food. Start Date: 10/10/17 Stop Date: 10/10/17 Status: Discontinued hydrochlorothiazide-losartan 12.5 mg-100 mg oral tablet 1 tab, PO, Daily, 0 Refill(s) Start Date: 10/05/17 Stop Date: 10/10/17 Status: Discontinued hydrochlorothiazide-losartan 25 mg-100 mg oral tablet 1 tab, Route: PO, Drug Form: TAB, Dosing Weight 87.727, kg, Daily, Start date: 0 10/10/17 9:00:00 CDT, Duration: 30 day, Stop date: 11/08/17 9:00:00 CDT Start Date: 10/10/17 Stop Date: 10/10/17 Status: Discontinued insulin lispro 4 unit, 0.04 mL, Route: SUB-Q, Drug form: SOLN, TID-Before Meals, Dosing Weight 87.273, kg, PRN Blood Glucose Results, Start date: 10/05/17 3:28:00 CDT, Duratio n: 30 day, Stop date: 11/04/17 3:27:00 CDT Notes: (Same as: Humalog ) Roll in palms of hands gently; Do not shake `vigorou sly. "Single Patient Use Only " WASTE: F/P - Black; E - Municipal Trash Bin St able for 28 days at room temperature.Expires in days from Da te Start Date: 10/05/17 Stop Date: 10/10/17 Status: Discontinued insulin lispro 5 unit, 0.05 mL, Route: SUB-Q, Drug form: SOLN, TID-Before Meals, Dosing Weight 87.273, kg, PRN Blood Glucose Results, Start date: 10/05/17 3:28:00 CDT, Duratio n: 30 day, Stop date: 11/04/17 3:27:00 CDT Notes: (Same as: Humalog ) Roll in palms of hands gently; Do not shake `vigorou sly. "Single Patient Use Only " WASTE: F/P - Black; E - Municipal Trash [facility] St able for 28 days at room temperature.Expires in days from Da te Start Date: 10/05/17 Stop Date: 10/10/17 Status: Discontinued insulin lispro 3 unit, 0.03 mL, Route: SUB-Q, Drug form: SOLN, TID-Before Meals, Dosing Weight 87.273, kg, PRN Blood Glucose Results, Start date: 10/05/17 3:28:00 CDT, Duratio n: 30 day, Stop date: 11/04/17 3:27:00 CDT Notes: (Same as: Humalog ) Roll in palms of hands gently; Do not shake `vigorou sly. "Single Patient Use Only " WASTE: F/P - Black; E - Municipal Trash [facility] St able for 28 days at room temperature.Expires in days from Da te Start Date: 10/05/17 Stop Date: 10/10/17 Status: Discontinued insulin lispro 2 unit, 0.02 mL, Route: SUB-Q, Drug form: SOLN, TID-Before Meals, Dosing Weight 87.273, kg, PRN Blood Glucose Results, Start date: 10/05/17 3:28:00 CDT, Duratio n: 30 day, Stop date: 11/04/17 3:27:00 CDT Notes: (Same as: Humalog ) Roll in palms of hands gently; Do not shake `vigorou sly. "Single Patient Use Only " WASTE: F/P - Black; E - Municipal Trash [facility] St able for 28 days at room temperature.Expires in days from Da te Start Date: 10/05/17 Stop Date: 10/10/17 Status: Discontinued insulin lispro 1 unit, 0.01 mL, Route: SUB-Q, Drug form: SOLN, TID-Before Meals, Dosing Weight 87.273, kg, PRN Blood Glucose Results, Start date: 10/05/17 3:28:00 CDT, Duratio n: 30 day, Stop date: 11/04/17 3:27:00 CDT Notes: (Same as: Humalog ) Roll in palms of hands gently; Do not shake `vigorou sly. "Single Patient Use Only " WASTE: F/P - Black; E - Municipal Trash [address] able for 28 days at room temperature.Expires in days from Da te Start Date: 10/05/17 Stop Date: 10/10/17 Status: Discontinued Lactated Ringers IV 1,000 mL 1,000 mL, Rate: 125 ml/hr, Infuse over: 8 hr, Route: IV, Dosing Weight 87.273 kg , Total Volume: 1,000, Start date: 10/05/17 3:24:00 CDT, Duration: 30 day, Stop date: 11/04/17 3:23:00 CDT, 2.05, m2 Start Date: 10/05/17 Stop Date: 10/06/17 Status: Discontinued lidocaine 1% 50 mg, 5 mL, Route: INTRADERM, Drug Form: INJ, Dosing Weight 87.727, kg, ONCALL, Start date: 10/10/17 13:00:00 CDT, Duration: 30 day, Stop date: 11/09/17 12:59: 00 CDT Notes: (Same as: Xylocaine) Start Date: 10/10/17 Stop Date: 10/10/17 Status: Discontinued lidocaine 1% 50 mg, 5 mL, Route: INTRADERM, Drug Form: INJ, Dosing Weight 87.727, kg, ONCALL, Start date: 10/09/17 17:00:00 CDT, Duration: 30 day, Stop date: 11/08/17 16:59: 00 CDT Notes: (Same as: Xylocaine) Start Date: 10/09/17 Stop Date: 10/10/17 Status: Discontinued losartan 100 mg, 2 tab, Route: PO, Drug form: TAB, Daily, Dosing Weight 87.273, kg, Start date: 10/05/17 9:00:00 CDT, Duration: 30 day, Stop date: 11/03/17 9:00:00 CDT Notes: (Same as: Cozaar) Start Date: 10/05/17 Stop Date: 10/10/17 Status: Discontinued losartan 50 mg oral tablet 100 mg=2 tab, PO, Daily, # 180 tab, 2 Refill(s) Start Date: 10/10/17 Stop Date: 07/07/18 Status: Ordered Lovenox 40 mg, 0.4 mL, Route: SUB-Q, Drug form: INJ, [id number], Dosing Weight 87.727, kg, Start date: 10/08/17 16:00:00 CDT, Stop date: 11/06/17 21:00:00 CDT Notes: (Same as: Lovenox) Start Date: 10/08/17 Stop Date: 10/10/17 Status: Discontinued magnesium oxide 800 mg, 2 tab, Route: PO, Drug form: TAB, PRN, Dosing Weight 87.727, kg, PRN Abn ormal Lab Result, For NON-ICU Patients Only., Start date: 10/10/17 9:15:00 CDT, Duration: 30 day, Stop date: 11/09/17 9:14:00 CDT Notes: (Same as: Mag-Ox 400)Magnesium oxide [id number] elemental magnesiumDose= ____mg magnesium oxide (___mg elemental magnesium) Start Date: 10/10/17 Stop Date: 10/10/17 Status: Discontinued magnesium sulfate 1 gm, 100 mL, Route: IVPB, Drug form: INJ, PRN, Dosing Weight 87.727, kg, PRN Ab normal Lab Result, For NON-ICU Patients Only., Start date: 10/10/17 9:15:00 CDT, Duration: 30 day, Stop date: 11/09/17 9:14:00 CDT Notes: WASTE: F/P - Sink; E - Municipal Trash Bin Start Date: 10/10/17 Stop Date: 10/10/17 Status: Discontinued magnesium sulfate 2 gm, 50 mL, Route: IVPB, Drug form: INJ, PRN, Dosing Weight 87.727, kg, PRN Abn ormal Lab Result, For NON-ICU Patients Only., Start date: 10/10/17 9:15:00 CDT, Duration: 30 day, Stop date: 11/09/17 9:14:00 CDT Notes: WASTE: F/P - Sink; E - Municipal Trash Bin Start Date: 10/10/17 Stop Date: 10/10/17 Status: Discontinued metFORMIN 500 mg oral tablet 1,000 mg=2 tab, PO, BID, 0 Refill(s) Start Date: 10/05/17 Status: Ordered NIFEdipine 30 mg oral tablet, extended release 30 mg, 1 tab, Route: PO, Drug form: ERTAB, ONCE, Dosing Weight 87.727, kg, Start date: 10/10/17 7:53:00 CDT, Stop date: 10/10/17 7:53:00 CDT Notes: (Same as: Adalat CC, Procardia XL) Give on empty stomach. Take 1 hour be fore or 2 hours after meal; "Avoid grapefruit and grapefruit juice". Do not cru sh Start Date: 10/10/17 Stop Date: 10/10/17 Status: Completed NIFEdipine 30 mg oral tablet, extended release 30 mg, 1 tab, Route: PO, Drug form: ERTAB, Daily, Dosing Weight 87.727, kg, Star t date: 10/10/17 9:00:00 CDT, Duration: 30 day, Stop date: 11/08/17 9:00:00 CDT Notes: (Same as: Adalat CC, Procardia XL) Give on empty stomach. Take 1 hour be fore or 2 hours after meal; "Avoid grapefruit and grapefruit juice". Do not cru sh Start Date: 10/10/17 Stop Date: 10/10/17 Status: Canceled NIFEdipine 60 mg oral tablet, extended release 60 mg, 1 tab, Route: PO, Drug form: ERTAB, ONCE, Dosing Weight 87.727, kg, Prior ity: STAT, Start date: 10/10/17 6:15:00 CDT, Stop date: 10/10/17 6:15:00 CDT, .. Notes: (Same as: Adalat CC, Procardia XL) Give on empty stomach. Take 1 hour be fore or 2 hours after meal; "Avoid grapefruit and grapefruit juice". Do not cru sh Start Date: 10/10/17 Stop Date: 10/10/17 Status: Completed ondansetron 4 mg, 2 mL, Route: IVP, Drug form: INJ, Q8H, Dosing Weight 87.273, kg, PRN Nause a & Vomiting, Start date: 10/05/17 3:28:00 CDT, Duration: 30 day, Stop date: 11/04/17 3:27:00 CDT Notes: (Same as: Galindo) MEDICATION WASTE Product Size: 4 mgProduct Was romain: ___ mg Start Date: 10/05/17 Stop Date: 10/10/17 Status: Discontinued pantoprazole 40 mg oral enteric coated tablet 40 mg=1 tab, PO, Daily, 0 Refill(s) Start Date: 10/05/17 Status: Ordered pneumococcal 23-valent vaccine 0.5 mL, Route: IM, Drug Form: INJ, ONCALL, Start date: 10/05/17 9:00:00 CDT, Dur ation: 1 doses or times Notes: (Same as: Pneumovax 23) Refrigerate Start Date: 10/05/17 Stop Date: 10/10/17 Status: Canceled potassium chloride 10 mEq, 50 mL, Route: IVPB, Drug form: INJ, PRN, Dosing Weight 87.727, kg, PRN A bnormal Lab Result, For NON-ICU Patients Only, Start date: 10/10/17 9:15:00 CDT, Duration: 30 day, Stop date: 11/09/17 9:14:00 CDT Notes: (Same as: KCL) Infuse over 2 hours. Start Date: 10/10/17 Stop Date: 10/10/17 Status: Discontinued potassium chloride 20 mEq, 15 mL, Route: NJ, Drug form: LIQ, PRN, Dosing Weight 87.727, kg, PRN Abn ormal Lab Result, For NON-ICU Patients Only, Start date: 10/10/17 9:15:00 CDT, D uration: 30 day, Stop date: 11/09/17 9:14:00 CDT Notes: (Same as: Potassium Chloride) Start Date: 10/10/17 Stop Date: 10/10/17 Status: Discontinued potassium chloride 20 mEq, 1 tab, Route: PO, Drug form: ERTAB, PRN, Dosing Weight 87.727, kg, PRN A bnormal Lab Result, For NON-ICU Patients Only, Start date: 10/10/17 9:15:00 CDT, Duration: 30 day, Stop date: 11/09/17 9:14:00 CDT Notes: (Same as: K-Dur 20)"Do Not Crush"For patients unable to swallow tablet, d issolve in one half glass of water. Allow about 2 minutes for the tablets to dis integrate. Stir before giving to prepare slurry and administer.Please exclude Pa tients with feeding tube less than 14 [place] (Dobhoff, J-tube etc) and pediat jose and patients. With food and full glass of water Start Date: 10/10/17 Stop Date: 10/10/17 Status: Discontinued potassium chloride 40 mEq, 2 tab, Route: PO, Drug form: ERTAB, BID, Dosing Weight 87.727, kg, Prior ity: STAT, Start date: 10/10/17 10:59:00 CDT, Duration: 1 day, Stop date: 9:00:00 CDT Notes: (Same as: K-Dur 20)"Do Not Crush"For patients unable to swallow tablet, d issolve in one half glass of water. Allow about 2 minutes for the tablets to dis integrate. Stir before giving to prepare slurry and administer.Please exclude Pa tients with feeding tube less than 14 [place] (Dobhoff, J-tube etc) and pediat jose and patients. With food and full glass of water Start Date: 10/10/17 Stop Date: 10/10/17 Status: Discontinued potassium chloride 20 mEq oral tablet, extended release 40 mEq, 2 tab, Route: PO, Drug form: ERTAB, BID, Dosing Weight 87.727, kg, Start date: 10/07/17 10:30:00 CDT, Duration: 2 doses or times, Stop date: 10/07/17 17 :00:00 CDT Notes: (Same as: K-Dur 20)"Do Not Crush"For patients unable to swallow tablet, d issolve in one half glass of water. Allow about 2 minutes for the tablets to dis integrate. Stir before giving to prepare slurry and administer.Please exclude Pa tients with feeding tube less than 14 [place] (Dobhoff, J-tube etc) and pediat jose and patients. With food and full glass of water Start Date: 10/07/17 Stop Date: 10/07/17 Status: Completed potassium phosphate + Sodium Chloride 0.9% IV 250 mL 15 mmol, 5 mL, Route: IVPB, PRN, Dosing Weight 87.727, kg, PRN Abnormal Lab Resu lt, For NON-ICU Patients Only., Start date: 10/10/17 9:15:00 CDT, Duration: 30 d ay, Stop date: 11/09/17 9:14:00 CDT Notes: (Same as: K Phosphate.) 1 mMol phoshate has 1.47 mEq potassium Infuse o laurent 4 hours Start Date: 10/10/17 Stop Date: 10/10/17 Status: Discontinued potassium phosphate + Sodium Chloride 0.9% IV 250 mL 30 mmol, 10 mL, Route: IVPB, PRN, Dosing Weight 87.727, kg, PRN Abnormal Lab Res ult, For NON-ICU Patients Only., Start date: 10/10/17 9:15:00 CDT, Duration: 30 day, Stop date: 11/09/17 9:14:00 CDT Notes: (Same as: K Phosphate.) 1 mMol phoshate has 1.47 mEq potassium Infuse o laurent 4 hours Start Date: 10/10/17 Stop Date: 10/10/17 Status: Discontinued potassium phosphate-sodium phosphate 250 mg-280 mg-160 mg oral powder for recons titution 2 pkt, Route: PO, Drug Form: PDR/REC, Dosing Weight 87.727, kg, PRN, PRN Abnorma l Lab Result, For NON-ICU Patients Only, Start date: 10/10/17 9:15:00 CDT, Durat ion: 30 day, Stop date: 11/09/17 9:14:00 CDT Notes: (Same as: Phos-NaK) Each 1.5 gm pkt has 250mg phosphorous. Mix w/2.5oz w ater and stir. Start Date: 10/10/17 Stop Date: 10/10/17 Status: Discontinued Saline Flush 0.9% 10 mL, Route: IVP, Drug Form: INJ, Dosing Weight 87.727, kg, PRN, PRN Line Flush , Start date: 10/10/17 12:37:00 CDT, Duration: 30 day, Stop date: 11/09/17 12:36 :00 CDT Notes: (Same as: BD Posiflush) Start Date: 10/10/17 Stop Date: 10/10/17 Status: Discontinued Saline Flush 0.9% 10 mL, Route: IVP, Drug Form: INJ, Dosing Weight 87.727, kg, Q8H, Start date: 16:00:00 CDT, Duration: 30 day, Stop date: 11/09/17 8:00:00 CDT Notes: (Same as: BD Posiflush) Start Date: 10/10/17 Stop Date: 10/10/17 Status: Discontinued Saline Flush 0.9% 10 mL, Route: IVP, Drug Form: INJ, Dosing Weight 87.727, kg, PRN, PRN Line Flush , Start date: 10/09/17 16:32:00 CDT, Duration: 30 day, Stop date: 11/08/17 16:31 :00 CDT Notes: (Same as: BD Posiflush) Start Date: 10/09/17 Stop Date: 10/10/17 Status: Discontinued Saline Flush 0.9% 10 mL, Route: IVP, Drug Form: INJ, Dosing Weight 87.727, kg, Q8H, Start date: 0:00:00 CDT, Duration: 30 day, Stop date: 11/08/17 16:00:00 CDT Notes: (Same as: BD Posiflush) Start Date: 10/10/17 Stop Date: 10/10/17 Status: Discontinued Saline Flush 0.9% 10 ml, Route: IVP, Drug Form: INJ, Dosing Weight 87.273, kg, PRN, PRN Line Flush , Start date: 10/05/17 3:24:00 CDT, Duration: 30 day, Stop date: 11/04/17 3:23:0 0 CDT Notes: Same as: BD Posiflush Sterile Start Date: 10/05/17 Stop Date: 10/10/17 Status: Discontinued Saline Flush 0.9% 10 ml, Route: IVP, Drug Form: INJ, Dosing Weight 87.273, kg, Q12H, Start date: 0 10/05/17 9:00:00 CDT, Duration: 30 day, Stop date: 11/03/17 21:00:00 CDT Notes: Same as: BD Posiflush Sterile Start Date: 10/05/17 Stop Date: 10/10/17 Status: Discontinued Saline Flush 0.9% 10 ml, Route: IVP, Drug Form: INJ, Dosing Weight 87.273, kg, PRN, PRN Line Flush , Start date: 10/05/17 3:24:00 CDT, Duration: 30 day, Stop date: 11/04/17 3:23:0 0 CDT Notes: Same as: BD Posiflush Sterile Start Date: 10/05/17 Stop Date: 10/10/17 Status: Discontinued simethicone 80 mg, 1 tab, Route: PO, Drug form: CHEWTAB, Q6H, Dosing Weight 87.273, kg, PRN Gas, Start date: 10/05/17 3:28:00 CDT, Duration: 2 doses or times, Stop date: Giselle bustamante # of times Notes: (Same as: Mylicon) Start Date: 10/05/17 Stop Date: 10/10/17 Status: Discontinued Singulair 10 mg oral tablet 10 mg=1 tab, PO, Daily, 0 Refill(s) Start Date: 10/05/17 Status: Ordered sodium ferric gluconate complex + Sodium Chloride 0.9% IV 100 mL 125 mg, 10 mL, Route: IVPB, Q24H, Dosing Weight 87.727, kg, Start date: 10/07/17 12:00:00 CDT, Duration: 8 doses or times, Stop date: 10/14/17 12:00:00 CDT Notes: (sodium ferric gluconate complex (elemental iron) 62.5 mg/5 ml INJ)"Limit ed stability. Use immediately after admixture"(Same as: Ferrlecit) MEDICAT ION WASTE Product Size: 62.5 mgProduct Wasted: 0___ mg Start Date: 10/07/17 Stop Date: 10/10/17 Status: Discontinued sodium phosphate + Sodium Chloride 0.9% IV 250 mL 30 mmol, 10 mL, Route: IVPB, PRN, Dosing Weight 87.727, kg, PRN Abnormal Lab Res ult, For NON-ICU Patients Only., Start date: 10/10/17 9:15:00 CDT, Duration: 30 day, Stop date: 11/09/17 9:14:00 CDT Start Date: 10/10/17 Stop Date: 10/10/17 Status: Discontinued sodium phosphate + Sodium Chloride 0.9% IV 250 mL 15 mmol, 5 mL, Route: IVPB, PRN, Dosing Weight 87.727, kg, PRN Abnormal Lab Resu lt, For NON-ICU Patients Only., Start date: 10/10/17 9:15:00 CDT, Duration: 30 d ay, Stop date: 11/09/17 9:14:00 CDT Start Date: 10/10/17 Stop Date: 10/10/17 Status: Discontinued tramadol 50 mg oral tablet 100 mg, 2 tab, Route: PO, Drug form: TAB, Q6H, Dosing Weight 87.727, kg, PRN Ruben n Score 4-6, Start date: 10/05/17 9:03:00 CDT, Duration: 30 day, Stop date: 10/17 9:02:00 CDT Notes: Not to exceed 400mg/day. (Same As: Ultram) Start Date: 10/05/17 Stop Date: 10/10/17 Status: Discontinued vancomycin 1.25 gm, 250 mL, Route: IVPB, Drug form: INJ, [id number], Start date: 10/07/17 8:30 :00 CDT, Stop date: 11/05/17 20:30:00 CDT, ABX Indication: Endocarditis/Endovasc ular Infection Notes: TIME CRITICAL MEDICATIONSame as: Vancocin-NS (premixed)Infusion rate< 1000 mg: infuse over 1 [id number] - 1500 mg: infuse over 1.5 [id number] - 2000 mg: infuse over 2 hours> 2001 mg: infuse over 2.5 hours Start Date: 10/07/17 Stop Date: 10/08/17 Status: Discontinued vancomycin + Sodium Chloride 0.9% IV 250 mL 1.75 gm, Route: IVPB, [id number], Dosing Weight 87.727, kg, Start date: 10/08/17 18 :00:00 CDT, Duration: 30 day, Stop date: 11/07/17 6:00:00 CDT, ABX Indication: E ndocarditis/Endovascular Infection Notes: TIME CRITICAL MEDICATION(Same As: Vancocin)Infusion rate< 1000 mg: infuse over 1 [id number] - 1500 mg: infuse over 1.5 hoursVancomycin FOR IV SET [id number] - 2000 mg: infuse over 2 hours> 2001 mg: infuse over 2.5 hoursFor adult patients only: Round to nearest 250 mg per Medical Staff approval MEDICATION WASTE Product Size: 1000 mgProduct Wasted: _250__ mg Start Date: 10/08/17 Stop Date: 10/09/17 Status: Discontinued vancomycin + Sodium Chloride 0.9% IV 500 mL 1.75 gm, Route: IV, ONCE, Dosing Weight 87.727, kg, Start date: 10/06/17 20:13:0 0 CDT, Stop date: 10/06/17 20:13:00 CDT, Pediatric Dosing, ABX Indication: Endoc arditis/Endovascular Infection Notes: TIME CRITICAL MEDICATION(Same As: Vancocin)Infusion rate< 1000 mg: infuse over 1 [id number] - 1500 mg: infuse over 1.5 hoursVancomycin FOR IV SET [id number] - 2000 mg: infuse over 2 hours> 2001 mg: infuse over 2.5 hoursFor adult patients only: Round to nearest 250 mg per Medical Staff approval MEDICATION WASTE Product Size: 1000 mgProduct Wasted: ___ mg Start Date: 10/06/17 Stop Date: 10/06/17 Status: Completed Venofer 200 mg, Route: IVPB, Drug form: INJ, Daily, Dosing Weight 87.727, kg, Start date : 10/08/17 9:00:00 CDT, Duration: 5 doses or times, Stop date: 10/12/17 9:00:00 CDT Start Date: 10/08/17 Stop Date: 10/07/17 Status: Deleted Vitamin D3 2000 intl units oral capsule 2,000 IntlUnit=1 cap, PO, Daily, # 100 cap, 3 Refill(s) Start Date: 10/05/17 Status: Ordered ZyrTEC 10 mg oral tablet 10 mg=1 tab, PO, Daily, 0 Refill(s) Start Date: 10/05/17 Status: Ordered Results ELECTROLYTES 1 2 3 Most recent to oldest [Reference Range]: 137 mEq/L (10/10/17 4:55 AM) 141 mEq/L (10/09/17 4:06 AM) 139 mEq/L (10/08/17 4:26 AM) Sodium Lvl [135-145 mEq/L] 3.2 mEq/L *LOW* (10/10/17 4:55 AM) 3.7 mEq/L (10/09/17 4:06 AM) 4.5 mEq/L (10/08/17 4:26 AM) Potassium Lvl [3.5-5.1 mEq/L] 101 mEq/L (10/10/17 4:55 AM) 107 mEq/L (10/09/17 4:06 AM) 107 mEq/L (10/08/17 4:26 AM) Chloride Lvl [95-109 mEq/L] 26 mEq/L (10/10/17 4:55 AM) 24 mEq/L (10/09/17 4:06 AM) 24 mEq/L (10/08/17 4:26 AM) CO2 [24-32 mEq/L] 13.2 mEq/L (10/10/17 4:55 AM) 13.7 mEq/L (10/09/17 4:06 AM) 12.5 mEq/L (10/08/17 4:26 AM) AGAP [10.0-20.0 mEq/L] CHEM PANEL 1 2 3 Most recent to oldest [Reference Range]: 0.72 mg/dL (10/10/17 4:55 AM) 0.78 mg/dL (10/09/17 4:06 AM) 0.70 mg/dL (10/08/17 4:26 AM) Creatinine Lvl [0.50-1.40 mg/dL] 93 mL/min/1.73m2 1 *NA* (10/10/17 4:55 AM) 90 mL/min/1.73m2 2 *NA* (10/09/17 4:06 AM) 95 mL/min/1.73m2 3 *NA* (10/08/17 4:26 AM) eGFR 8 mg/dL (10/10/17 4:55 AM) 13 mg/dL (10/09/17 4:06 AM) 12 mg/dL (10/08/17 4:26 AM) BUN [7-22 mg/dL] 13 (10/06/17 5:24 AM) B/C Ratio [6-25] 117 mg/dL *HI* (10/10/17 4:55 AM) 131 mg/dL *HI* (10/09/17 4:06 AM) 119 mg/dL *HI* (10/08/17 4:26 AM) Glucose Lvl [70-99 mg/dL] 7.6 g/dL (10/06/17 1:26 PM) 7.2 g/dL (10/06/17 5:24 AM) Total Protein [6.4-8.4 g/dL] 3.3 g/dL *LOW* (10/06/17 1:26 PM) 3.2 g/dL *LOW* (10/06/17 5:24 AM) Albumin Lvl [3.5-5.0 g/dL] 4.3 g/dL *HI* (10/06/17 1:26 PM) 4.0 g/dL (10/06/17 5:24 AM) Globulin [2.7-4.2 g/dL] 0.8 (10/06/17 1:26 PM) 0.8 (10/06/17 5:24 AM) A/G Ratio [0.7-1.6] 9.9 mg/dL (10/10/17 4:55 AM) 8.5 mg/dL (10/09/17 4:06 AM) 8.8 mg/dL (10/08/17 4:26 AM) Calcium Lvl [8.5-10.5 mg/dL] 3.8 mg/dL (10/10/17 4:55 AM) 3.7 mg/dL (10/09/17 4:06 AM) 3.0 mg/dL (10/08/17 4:26 AM) Phosphorus [2.5-4.5 mg/dL] 2.3 mg/dL (10/10/17 4:55 AM) 2.3 mg/dL (10/09/17 4:06 AM) 2.4 mg/dL (10/08/17 4:26 AM) Magnesium Lvl [1.8-2.4 mg/dL] 38 unit/L (10/06/17 1:26 PM) 38 unit/L (10/06/17 5:24 AM) ALT [0-65 unit/L] 26 unit/L (10/06/17 1:26 PM) 32 unit/L (10/06/17 5:24 AM) AST [0-37 unit/L] 89 unit/L (10/06/17 1:26 PM) 75 unit/L (10/06/17 5:24 AM) Alk Phos [39-136 unit/L] 281 unit/L *HI* (10/06/17 1:26 PM) LDH [98-192 unit/L] 2.7 mg/dL *HI* (10/06/17 1:26 PM) 2.7 mg/dL *HI* (10/06/17 5:24 AM) Bili Total [0.2-1.3 mg/dL] 0.2 mg/dL (10/06/17 1:26 PM) Bili Direct [0.0-0.3 mg/dL] 2.5 mg/dL *HI* (10/06/17 1:26 PM) Bili Indirect [0.0-1.0 mg/dL] 0.66 ng/mL *HI* (10/05/17 3:48 AM) 0.37 ng/mL *HI* (10/04/17 8:41 PM) Procalcitonin Lvl [0.00-0.10 ng/mL] 1Result Comment: The eGFR is calculated using [...] be mul tiplied by the estimated BMI. CARDIAC ENZYMES 1 2 3 Most recent to oldest [Reference Range]: 57 unit/L (10/05/17 7:57 AM) 54 unit/L (10/05/17 3:48 AM) Total CK [12-191 unit/L] <0.010 ng/mL (10/05/17 7:57 AM) <0.010 ng/mL (10/05/17 3:48 AM) Troponin-T [0.000-0.100 ng/mL] <0.02 ng/mL (10/05/17 7:57 AM) <0.02 ng/mL (10/05/17 3:48 AM) <0.02 ng/mL (10/04/17 5:20 PM) Troponin-I [0.00-0.40 ng/mL] ANEMIA STUDY 1 2 3 Most recent to oldest [Reference Range]: 12 ug/dl *LOW* (10/06/17 1:26 PM) 13 ug/dl *LOW* (10/06/17 5:24 AM) Iron [45-160 ug/dl] 99 ng/mL (10/06/17 1:26 PM) Ferritin Lvl [22-275 ng/mL] 3 % *LOW* (10/06/17 1:26 PM) 4 % *LOW* (10/06/17 5:24 AM) % Satur Fe [12-57 %] 368 ug/dl (10/06/17 1:26 PM) 291 ug/dl (10/06/17 5:24 AM) UIBC [110-370 ug/dl] 380 ug/dl (10/06/17 1:26 PM) 304 ug/dl (10/06/17 5:24 AM) TIBC [228-428 ug/dl] PARATHYROID PROFILE 1 2 3 Most recent to oldest [Reference Range]: 1.21 mMol/L (10/10/17 4:55 AM) 1.13 mMol/L (10/09/17 4:06 AM) 1.10 mMol/L (10/08/17 4:26 AM) Ca Ion WB [1.05-1.25 mMol/L] 1.18 mMol/L (10/10/17 4:55 AM) 1.12 mMol/L (10/09/17 4:06 AM) 1.10 mMol/L (10/08/17 4:26 AM) Ca Norm WB [1.05-1.25 mMol/L] TOXICOLOGY 1 2 3 Most recent to oldest [Reference Range]: 0800 *NA* (10/08/17 8:06 AM) Vanco Tr TND 8.6 ug/ml 1 *NA* (10/08/17 8:06 AM) Vanco Tr 1Result Comment: Specimen Slightly Hemolyzed. URINE AND STOOL 1 2 3 Most recent to oldest [Reference Range]: Clear (10/04/17 8:05 PM) UA Turbidity [Clear] Yellow *NA* (10/04/17 8:05 PM) UA Color [Yellow] 8.0 (10/04/17 8:05 PM) UA pH [5.0-8.0] 1.015 (10/04/17 8:05 PM) UA Spec Grav [<=1.030] Negative mg/dL (10/04/17 8:05 PM) UA Glucose [Negative mg/dL] Negative (10/04/17 8:05 PM) UA Blood [Negative] Negative mg/dL *NA* (10/04/17 8:05 PM) UA Ketones [Negative mg/dL] Negative mg/dL (10/04/17 8:05 PM) UA Protein [Negative mg/dL] 0.2 EU/dL (10/04/17 8:05 PM) UA Urobilinogen [0.1-1.0 EU/dL] Negative *NA* (10/04/17 8:05 PM) UA Bili [Negative] Negative (10/04/17 8:05 PM) UA Leuk Est [Negative] Negative (10/04/17 8:05 PM) UA Nitrite [Negative] None Seen (10/04/17 8:05 PM) UA WBC [None Seen] Occasional *NA* (10/04/17 8:05 PM) UA RBC Rare /LPF (10/04/17 8:05 PM) UA Sq Epi [Few /LPF] IMMUNOLOGY 1 2 3 Most recent to oldest [Reference Range]: 189 mg/dL (10/06/17 1:26 PM) Haptoglobin [16-200 mg/dL] 15.9 mg/L *HI* (10/04/17 8:41 PM) CRP [<=2.9 mg/L] HEMATOLOGY 1 2 3 Most recent to oldest [Reference Range]: 4.4 K/CMM (10/10/17 4:55 AM) 3.3 K/CMM *LOW* (10/09/17 4:06 AM) 4.1 K/CMM (10/08/17 4:26 AM) WBC [3.7-10.4 K/CMM] 4.57 M/CMM *LOW* (10/10/17 4:55 AM) 4.34 M/CMM *LOW* (10/09/17 4:06 AM) 4.59 M/CMM *LOW* (10/08/17 4:26 AM) RBC [4.70-6.10 M/CMM] 10.4 g/dL *LOW* (10/10/17 4:55 AM) 10.0 g/dL *LOW* (10/09/17 4:06 AM) 10.5 g/dL *LOW* (10/08/17 4:26 AM) Hgb [14.0-18.0 g/dL] 33.2 % *LOW* (10/10/17 4:55 AM) 31.6 % *LOW* (10/09/17 4:06 AM) 33.7 % *LOW* (10/08/17 4:26 AM) Hct [42.0-54.0 %] 72.6 fL *LOW* (10/10/17 4:55 AM) 72.9 fL *LOW* (10/09/17 4:06 AM) 73.4 fL *LOW* (10/08/17 4:26 AM) MCV [80.0-94.0 fL] 22.9 pg *LOW* (10/10/17 4:55 AM) 23.0 pg *LOW* (10/09/17 4:06 AM) 22.9 pg *LOW* (10/08/17 4:26 AM) MCH [27.0-31.0 pg] 31.5 g/dL *LOW* (10/10/17 4:55 AM) 31.5 g/dL *LOW* (10/09/17 4:06 AM) 31.3 g/dL *LOW* (10/08/17 4:26 AM) MCHC [32.0-36.0 g/dL] 20.0 % *HI* (10/10/17 4:55 AM) 20.3 % *HI* (10/09/17 4:06 AM) 20.2 % *HI* (10/08/17 4:26 AM) RDW [11.5-14.5 %] 8.9 fL (10/10/17 4:55 AM) 9.7 fL (10/09/17 4:06 AM) 9.7 fL (10/08/17 4:26 AM) MPV [7.4-10.4 fL] 127 K/CMM *LOW* (10/10/17 4:55 AM) 99 K/CMM *LOW* (10/09/17 4:06 AM) 71 K/CMM *LOW* (10/08/17 4:26 AM) Platelet [133-450 K/CMM] 67.6 % (10/10/17 4:55 AM) 60.0 % (10/09/17 4:06 AM) 67.6 % (10/08/17 4:26 AM) Segs [45.0-75.0 %] 16.6 % *LOW* (10/10/17 4:55 AM) 18.0 % *LOW* (10/09/17 4:06 AM) 13.6 % *LOW* (10/08/17 4:26 AM) Lymphocytes [20.0-40.0 %] 11.8 % (10/10/17 4:55 AM) 18.0 % *HI* (10/09/17 4:06 AM) 14.7 % *HI* (10/08/17 4:26 AM) Monocytes [2.0-12.0 %] 3.4 % (10/10/17 4:55 AM) 3.0 % (10/09/17 4:06 AM) 3.5 % (10/08/17 4:26 AM) Eosinophils [0.0-4.0 %] 0.6 % (10/10/17 4:55 AM) 1.0 % (10/09/17 4:06 AM) 0.6 % (10/08/17 4:26 AM) Basophils [0.0-1.0 %] 3.0 K/CMM (10/10/17 4:55 AM) 2.0 K/CMM (10/09/17 4:06 AM) 2.8 K/CMM (10/08/17 4:26 AM) Segs-Bands # [1.5-8.1 K/CMM] 0.7 K/CMM *LOW* (10/10/17 4:55 AM) 0.6 K/CMM *LOW* (10/09/17 4:06 AM) 0.6 K/CMM *LOW* (10/08/17 4:26 AM) Lymphocytes # [1.0-5.5 K/CMM] 0.5 K/CMM (10/10/17 4:55 AM) 0.6 K/CMM (10/09/17 4:06 AM) 0.6 K/CMM (10/08/17 4:26 AM) Monocytes # [0.0-0.8 K/CMM] 0.1 K/CMM (10/10/17 4:55 AM) 0.1 K/CMM (10/09/17 4:06 AM) 0.1 K/CMM (10/08/17 4:26 AM) Eosinophils # [0.0-0.5 K/CMM] Normal (10/07/17 12:19 AM) RBC Morph 2+ *ABN* (10/10/17 4:55 AM) 2+ *ABN* (10/09/17 4:06 AM) 2+ *ABN* (10/08/17 4:26 AM) Microcyte [None Seen] Peripheral blood smear shows microcytic hypochromic anemia with anisopoikilocytsosis, a occasional elliptocytes, no increase in schistocytes, slight polychromasia; moderate thrombocytopenia, few large platelets, no platelets clumps seen. Impression: (1) no evidence of microangiopathic hemolysis, (2) RBC morphology is sugestive of iron deficiency anemia. CPT: 02541 *NA* (10/06/17 1:26 PM) PB Smear Path Normal (10/09/17 4:06 AM) See Note 1 (10/08/17 4:26 AM) Normal (10/07/17 12:19 AM) Plt Morph Occasional *NA* (10/08/17 4:26 AM) Large Plt 9 mm/hr (10/04/17 8:41 PM) Sed Rate [0-15 mm/hr] 1.3 % (10/06/17 1:26 PM) Retic Auto [0.5-1.5 %] 1Result Comment: Fibrin strands present. Immunizations Given and Recorded Vaccine Date Status [...] 10/04/17 Assessment and Plan Extracted from: Title: [facility] Progress Note Author: Jorge Stapleton MD Date: 10/10/17 Patient: JAQUI JARVIS Age: 72 years Sex: Male : 1945 Associated Diagnoses: None Author: Jorge Stalpeton MD Subjective No acute events from overnight. Patient pending home health IV Abt. Review of Systems Constitutional: Fatigue, No fever, No chills. Eye: No discharge, No double vision. Ear/Nose/Mouth/Throat: No ear pain, No sore throat. Respiratory: No shortness of breath, No cough. Cardiovascular: left-sided chest muscle pain, No palpitations, No syncope. Gastrointestinal: No nausea, No vomiting, No abdominal pain. Musculoskeletal: No muscle pain, No decreased range of motion, No trauma. Neurologic: Alert and oriented X4, No confusion. Psychiatric: No anxiety, No hallucinations. Health Status Allergies: Allergic Reactions (Selected) Severity Not Documented Morphine- No reactions were documented. [place]- No reactions were documented. OxyCONTIN- No reactions were documented. Tylenol with Codeine #3- No reactions were documented. Problem list: All Problems Aortic stenosis / SNOMED CT 802044056 / Confirmed Hypertension, essential / SNOMED CT 24726814 / Confirmed DM (diabetes mellitus), type 2 / SNOMED CT 678074109 / Confirmed Objective I&O Input/Output RecordInOutBal 05/1124hr Tot 150 0 150 05/1024hr Tot 1121 500 621 VS/Measurements Vital Signs (last 24 hrs) Last Charted Temp Oral98.4 DegF (OCTOBER 10 11:38) Heart Rate Dvqxpf05 bpm (OCTOBER 10:38) Resp Rate 18 BRMIN (OCTOBER 10 11:00) SBPH 142mmHg (OCTOBER 10 11:00) DBP87 mmHg (OCTOBER 10 11:00) LjN819 % (OCTOBER 09 21:00) General: Alert and oriented, No acute distress. Eye: Extraocular movements are intact, mild ptosis of left eye. HENT: NC/AT, mild mucous membrane Respiratory: Lungs are clear to auscultation, Respirations are non-labored, Breath sounds are equal. Cardiovascular: Normal rate, Regular rhythm, systolic murmer auscultated at left sternal border. Gastrointestinal: Soft, Non-tender. Musculoskeletal Normal range of motion. Normal strength. No tenderness. Integumentary: Warm, Dry. Tenderness to palpation on left chest area Neurologic: Alert, Oriented, Normal sensory, Normal motor function Review / Management Results review: Labs (Last four charted values) WBC 4.4(OCTOBER 10)L 3.3(OCTOBER 09)4.1(OCTOBER 08)5.1(OCTOBER 07) Hgb L 10.4(OCTOBER 10)L 10.0(OCTOBER 09)L 10.5(OCTOBER 08)L 9.6(OCTOBER 07) Hct L 33.2(OCTOBER 10)L 31.6(OCTOBER 09)L 33.7(OCTOBER 08)L 30.2(OCTOBER 07) Plt L 127(OCTOBER 10)L 99(OCTOBER 09)L 71(OCTOBER 08)L 70(OCTOBER 07) Na 137(OCTOBER 10)141(OCTOBER 09)139(OCTOBER 08)135(OCTOBER 07) K L 3.2(OCTOBER 10)3.7(OCTOBER 09)4.5(OCTOBER 08)3.5(OCTOBER 07) CO2 26(OCTOBER 10)24(OCTOBER 09)24(OCTOBER 08)25(OCTOBER 07) Cl 101(OCTOBER 10)107(OCTOBER 09)107(OCTOBER 08)101(OCTOBER 07) Cr 0.72(OCTOBER 10)0.78(OCTOBER 09)0.70(OCTOBER 08)0.84(OCTOBER 07) BUN 8(OCTOBER 10)13(OCTOBER 09)12(OCTOBER 08)11(OCTOBER 07) Glucose Random H 117(OCTOBER 10)H 131(OCTOBER 09)H 119(OCTOBER 08)H 132(OCTOBER 07) Mg 2.3(OCTOBER 10)2.3(OCTOBER 09)2.4(OCTOBER 08)2.2(OCTOBER 07) Phos 3.8(OCTOBER 10)3.7(OCTOBER 09)3.0(OCTOBER 08)2.5(OCTOBER 07) Ca 9.9(OCTOBER 10)8.5(OCTOBER 09)8.8(OCTOBER 08)8.8(OCTOBER 07) Troponin <0.02(OCTOBER 05)<0.02(OCTOBER 05)<0.02(OCTOBER 04) Total CK 57(OCTOBER 05)54(OCTOBER 05). Impression and Plan pression and Plan Patient is a 72 year old male with a PMHx of CAD-LAD 75%, AVR via minimally invasive approach in 06/24/2017 (hospital course complicated by intermittent AV block requiring a PPM on 07/05/2017, GI bleed with AVMs and polyps on colonoscopy) who presented to [facility] on 10/05/17 with complaints of subjective fever and fatigue, HENRI with echogenic mass on the atrial lead concerning for vegetation vs thrombus, blood cultures growing H. aphrophilus concerning for lead infection, patient now s/p PPM extraction. 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 GT TISSUE HENRI from 10/06 showing atrial lead echogenic mass concerning for infection - hx of AVR in 06/2017 - Last fever 101 on 10/06, normal WBC - Bcx (+) H. aphrophilus x3 -S/P lead extraction 10/08/2017: Per EP, patient does not need PPM since patient was not pacemker dependent. - Per ID: [id number] Vancomycin and Cefepime. Start ceftriaxone 2g for 6 weeks. Start date 10/09/2017. #CAD - continue statin and ARB - no complaints of CP #AVR - continue DAPT # Mobitz II heart block (during last admission) - Pacemaker interrogation showed patient is not pacemaker dependent Diet: Heart healthy ppx: lovenox. Will hold for 48hrs post procedure. start tomorrow Dispo: Pending PICC line placement and home health IV abt. CCU/[facility]IMU Daily Patient Safety Checklist Yes No Mechanical Ventilation? _ x 1. Sedation level addressed? _ _ 2. Sedation holiday performed if indicated? _ _ 3. Adequate pain control? _ _ 4. Delirium assessment done and addressed? _ _ 5. Restraints assessed/reordered? _ _ 6. PUD ppx? _ _ Blood Stream Infection Prevention: N/A 1.Central Line necessity addressed? _ _ _ vasoactive agents, _ TPN, _loss of venous access 2.Central Line duration > 5 days? _ _ CAUTI Prevention: 1. Helms necessity addressed? x _ _ complete bedrest, _ urinary retention,_ 2. Helms duration > 3 days? _ x DVT Prevention: 1. VTE Advisor Completed on admission? x _ 2.DVT ppx? x _ Nutrition 1. Enteral Feeding within 48h? _ _ Blood Glucose Control 1. 60 mg/dl< BG < 200mg/dl? x _ CAD/CHF/PCI Requirements: 1.ASA post OK? x _ 2.ACEi + BB in CHF? x _ 3. Statinin CAD? x _ 4. DAPT post-PCI? _ _ 5. Renal Protection Fluid Protocol Post-PCI? _ _ Discharge Planning 1. PT/OT? _ _ 2. Cardiac Rehab? x _ 3. Case Management/Social Work Consult? _x _ Addendum I saw and examined patient with resident, Dr. Stapleton. Agree with management and plans as by we discussed. Gerhard Gates MD on 10/12/2017 10:39 Extracted from: Title: History and Physical Author: Mayela Saavedra MD Date: 10/05/17 Patient is a 72-year-old diabetic who underwent aortic valve replacementsin June 2017 who presented with profound fatigueand has since developed a fever. His pro calcitonin is elevated. I have ordered empiric blood cultures andempiric broad-spectrum IV antibiotics. Urinalysis was not inflammatory. CBCis remarkable for no leukocytosis,but he does have anemia and thrombocytopenia. We will need to trend his CBCclosely. 1.Fever Blood cultures pending Empiric antibiotics pending IV fluid resuscitation Elevated procal speaks to a bacterialinfection however there is no leukocytosis or left shift. Keep in house to monitordevelopment of sepsis syndrome Ordered: Admit/Condition, 10/05/17 3:24:00 CDT, Status: Inpatient, Telemetry, Reason: Syncope, Expected LOS: 2 Midnights, Thompson Macdonald MD, Admit MD Review/Approve Yes, Isolation: No Isolation/Standard Precautions 2.Generalized weakness Physical therapy 3.Aortic stenosis Plavix and aspirin 4.DM (diabetes mellitus), type 2 Metformin held Insulin sliding scale Carbohydrate controlled diet 5.Hypertension, essential Improved losartan HCTZ held 6.SVT (supraventricular tachycardia) dofetilide none pending improvement [facility] Hospitalist service is primary. Page [phone] or [phone] with concerns.
--- OUTSIDE RECORDS SUMMARY | 2018-05-05 18:48 | XMS REPORT | Summary of Care ---
Author Author [facility] Organization [facility] Address Unknown Phone Unavailable Encounter LISA Bermudez(MATHIEU) [id number] Date(s): 10/04/17 - 10/10/17 [facility] [address] [facility] provided by [facility] [place] [address]- Encounter Diagnosis Weakness (Final) - Discharge Disposition: [...] Ordered bisacodyl 10 mg, 1 supp, Route: MO, Drug form: SUPP, Daily, Dosing Weight 87.273, [...] water 20 mL 2 gm, Route: IVPB, [id number], Dosing Weight 87.727, kg, Priority: STAT, Start [...] 0.4 mL, Route: SUB-Q, Drug form: INJ, [id number], Dosing Weight 87.727, kg, Start date: 10/08/17 [...] CDT Notes: (Same as: Mag-Ox 400)Magnesium oxide [id number] elemental magnesiumDose= ____mg magnesium oxide (___mg elemental [...] tients with feeding tube less than 14 Slov[place] (Dobhoff, J-tube etc) and pediat jose and [...] tients with feeding tube less than 14 [place] (Dobhoff, J-tube etc) and pediat jose and [...] tients with feeding tube less than 14 [place] (Dobhoff, J-tube etc) and pediat jsoe and patients. With food and full glass [...] 250 mL, Route: IVPB, Drug form: INJ, [id number], Start date: 10/07/17 8:30 :00 CDT, Stop date: 11/05/17 20:30:00 CDT, ABX Indication: Endocarditis/Endovasc ular Infection Notes: TIME CRITICAL MEDICATIONSame as: Vancocin-NS (premixed)Infusion rate< 1000 mg: infuse over 1 [id number] - 1500 mg: infuse over 1.5 [id number] - 2000 mg: infuse over 2 hours> 2001 mg: infuse over 2.5 hours Start Date: 10/07/17 Stop Date: 10/08/17 Status: Discontinued vancomycin + Sodium Chloride 0.9% IV 250 mL 1.75 gm, Route: IVPB, [id number], Dosing Weight 87.727, kg, Start date: 10/08/17 18 :00:00 CDT, Duration: 30 day, Stop date: 11/07/17 6:00:00 CDT, ABX Indication: E ndocarditis/Endovascular Infection Notes: TIME CRITICAL MEDICATION(Same As: Vancocin)Infusion rate< 1000 mg: infuse over 1 [id number] - 1500 mg: infuse over 1.5 hoursVancomycin [...] Vancocin)Infusion rate< 1000 mg: infuse over 1 [id number] - 1500 mg: infuse over 1.5 hoursVancomycin [...] is sugestive of iron deficiency anemia. CPT: 01487 *NA* (10/06/17 1:26 PM) PB Smear Path [...] : 1945 Associated Diagnoses: None Author: Jorge Stapleton MD Subjective No acute events from overnight. [...] Not Documented Morphine- No reactions were documented. [place]- No reactions were documented. OxyCONTIN- No reactions were documented. Tylenol with Codeine #3- No reactions were documented. Problem list: All Problems Aortic stenosis / SNOMED CT 874092925 / Confirmed Hypertension, essential / SNOMED CT 69189828 / Confirmed DM (diabetes mellitus), type 2 / SNOMED CT 331061451 / Confirmed Objective I&O Input/Output RecordInOutBal 05/1124hr Tot 150 0 150 05/1024hr Tot 1121 500 621 VS/Measurements Vital Signs (last 24 hrs) Last Charted Temp Oral98.4 DegF (OCTOBER 10 11:38) Heart Rate Kzjgmj15 bpm (OCTOBER 10:38) Resp Rate 18 BRMIN (OCTOBER 10 11:00) SBPH 142mmHg (OCTOBER 10 11:00) DBP87 mmHg (OCTOBER 10 11:00) OsC691 % (OCTOBER 09 21:00) General: Alert and [...] and polyps on colonoscopy) who presented to [facility] on 10/05/17 with complaints of subjective [...] 200mg/dl? x _ CAD/CHF/PCI Requirements: 1.ASA post IA? x _ 2.ACEi + BB in CHF? [...] improvement [facility]ist service is primary. Page [phone] or [phone] with concerns.
--- OUTSIDE RECORDS SUMMARY | 2018-05-05 18:48 | XMS REPORT | Summary of Care ---
Author Author [facility] Organization [facility] Address Unknown Phone Unavailable Encounter LISA Bermudez(MATHIEU) [id number] Date(s): 06/23/17 - 07/07/17 [facility] [address] [employer] provided by [facility] [place] [address]- Encounter Diagnosis Nonrheumatic aortic (valve) stenosis (Final) - 07/28/17 Encounter for immunization (Final) - Acute respiratory failure with hypoxia (Final) - Acute kidney failure, unspecified (Final) - Unspecified atrial flutter (Final) - Type 2 diabetes mellitus with hyperglycemia (Final) - Fluid overload, unspecified (Final) - Thrombocytopenia, unspecified (Final) - Atrioventricular block, second degree (Final) - Ileus, unspecified (Final) - Acute posthemorrhagic anemia (Final) - Other postprocedural complications and disorders of digestive system (Final) - long-term (current) use of oral hypoglycemic drugs (Final) - Essential (primary) hypertension (Final) - 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 (Final) - Coronary atherosclerosis due to calcified coronary lesion (Final) - Hyperlipidemia, unspecified (Final) - Bradycardia, unspecified (Final) - Abdominal distension (gaseous) (Final) - Discharge Disposition: Home or Self Care Attending Physician: Dottie Rodriguez MD Admitting Physician: Mook Cerna MD Referring Physician: Mook Cerna MD Vital Signs 1 2 3 Most recent to oldest [Reference Range]: 170.18 cm (06/25/17 3:13 AM) 170.18 cm (06/24/17 11:02 PM) 170.18 cm (06/24/17 7:25 PM) Height 83.352 kg (07/07/17 6:54 AM) 85.597 kg (07/06/17 5:44 AM) 56.903 kg (07/05/17 6:44 AM) Current Weight 97 DegF (07/06/17 4:04 PM) 97.4 DegF (07/06/17 8:25 AM) 97.1 DegF (07/06/17 4:00 AM) Temperature Oral [96.4-99.1 DegF] 130/87 mmHg (07/07/17 6:30 AM) 121/77 mmHg (07/07/17 5:30 AM) 134/78 mmHg (07/07/17 4:30 AM) Blood Pressure [90-140/60-90 mmHg] 34 BRMIN *HI* (07/06/17 10:00 PM) 22 BRMIN *HI* (07/06/17 9:00 PM) 21 BRMIN *HI* (07/06/17 8:30 PM) Respiratory Rate [14-20 BRMIN] 63 bpm (06/24/17 5:59 PM) 72 bpm (06/24/17 8:44 AM) 61 bpm (06/24/17 4:20 AM) Peripheral Pulse Rate [60-100 bpm] 91.364 kg (06/23/17 8:54 AM) Weight 31.55 m2 (06/23/17 8:54 AM) Body Mass Index Problem List Condition Effective [...] TAB, Q4H, Dosing Weight 91.364, kg, PRN Ruben n 1-3/Temp > 100.4 F, Start date: 06/23/17 22:47:00 CHAIR INSTALLER, Duration: 30 day, Stop date: 07/23/17 22:46:00 CHAIR INSTALLER Notes: Do not exceed 4 gm/day. (Same as: Tylenol) Start Date: 06/23/17 Stop Date: 06/28/17 Status: Discontinued acetaminophen 650 mg, 2 tab, Route: PO, Drug form: TAB, Q4H, Dosing Weight 91.364, kg, PRN Ruben n Score 7-10, Start date: 06/23/17 15:28:00 CHAIR INSTALLER, Duration: 30 day, Stop date: 15:27:00 CHAIR INSTALLER Notes: Do not exceed 4 gm/day. (Same as: Tylenol) Start Date: 06/23/17 Stop Date: 06/24/17 Status: Discontinued acetaminophen 650 mg, 2 tab, Route: PO, Drug form: TAB, Q6H, Dosing Weight 91.364, kg, PRN Ruben n 1-3/Temp > 100.4 F, Start date: 07/03/17 7:53:00 CHAIR INSTALLER, Duration: 30 day, Stop date: 08/02/17 7:52:00 CHAIR INSTALLER Notes: Do not exceed 4 gm/day. (Same as: Tylenol) Start Date: 07/03/17 Stop Date: 07/07/17 Status: Discontinued albumin human 5% intravenous solution 25 gm, 500 mL, 500 ml/hr, Route: IV, Drug Form: INJ, Dosing Weight 91.364, kg, O NCE, Start date: 06/25/17 2:02:00 CHAIR INSTALLER, Stop date: 06/25/17 2:02:00 CHAIR INSTALLER Notes: LOT#: Mfg: WASTE: F/P - Red; E -Red (Same a s: Albuminar)"blood product derivative" Start Date: 06/25/17 Stop Date: 06/25/17 Status: Completed albumin human 5% intravenous solution 25 gm, 500 mL, 500 ml/hr, Route: IV, Drug Form: INJ, Dosing Weight 91.364, kg, O NCE, Start date: 06/24/17 23:46:00 CHAIR INSTALLER, Stop date: 06/24/17 23:46:00 CHAIR INSTALLER Notes: LOT#: Mfg: WASTE: F/P - Red; E -Red (Same a s: Albuminar)"blood product derivative" Start Date: 06/24/17 Stop Date: 06/25/17 Status: Completed albumin human 5% intravenous solution 25 gm, 500 mL, 500 ml/hr, Route: IV, Drug Form: INJ, Dosing Weight 91.364, kg, O NCE, Start date: 06/25/17 0:11:00 CHAIR INSTALLER, Stop date: 06/25/17 0:11:00 CHAIR INSTALLER Notes: LOT#: Mfg: WASTE: F/P - Red; E -Red (Same a s: Albuminar)"blood product derivative" Start Date: 06/25/17 Stop Date: 06/25/17 Status: Completed amLODIPine 10 mg, 1 tab, Route: PO, Drug form: TAB, Daily, Dosing Weight 91.364, kg, Start date: 06/26/17 9:00:00 CHAIR INSTALLER, Duration: 30 day, Stop date: 07/25/17 9:00:00 CHAIR INSTALLER Notes: (Same as: Norvasc) Start Date: 06/26/17 Stop Date: 06/27/17 Status: Discontinued amLODIPine 10 mg, 1 tab, Route: PO, Drug form: TAB, Daily, Dosing Weight 91.364, kg, Start date: 06/24/17 9:00:00 CHAIR INSTALLER, Duration: 30 day, Stop date: 07/23/17 9:00:00 CHAIR INSTALLER Notes: (Same as: Norvasc) Start Date: 06/24/17 Stop Date: 06/25/17 Status: Discontinued amLODIPine 10 mg oral tablet 10 mg=1 tab, PO, Daily, 0 Refill(s) Start Date: 06/23/17 Stop Date: 07/07/17 Status: Discontinued aspirin 81 mg, 1 tab, Route: PO, Drug form: ECTAB, Daily, Dosing Weight 91.364, kg, Prio rity: STAT, Start date: 06/23/17 23:12:00 CHAIR INSTALLER, Duration: 30 day, Stop date: 07/04 06/19 9:00:00 CHAIR INSTALLER Notes: Do not crush or chew.(Same As: Ecotrin) Start Date: 06/23/17 Stop Date: 07/07/17 Status: Discontinued aspirin 325 mg tablet 325 mg, 1 tab, Route: PO, Drug form: TAB, ONCE, Dosing Weight 91.364, kg, Priori ty: STAT, Start date: 06/23/17 22:55:00 CHAIR INSTALLER, Stop date: 06/23/17 22:55:00 CHAIR INSTALLER Notes: Take with food. Start Date: 06/23/17 Stop Date: 06/23/17 Status: Discontinued atorvastatin 80 mg, 1 tab, Route: PO, Drug form: TAB, Bedtime, Dosing Weight 91.364, kg, Prio rity: STAT, Start date: 06/23/17 22:53:00 CHAIR INSTALLER, Duration: 30 day, Stop date: 07/04 06/19 21:00:00 CHAIR INSTALLER Notes: Same as Lipitor Start Date: 06/23/17 Stop Date: 07/07/17 Status: Discontinued atorvastatin 80 mg oral tablet 80 mg=1 tab, PO, Bedtime, # 30 tab, 0 Refill(s) Start Date: 07/07/17 Stop Date: 07/23/17 Status: Discontinued bisacodyl 10 mg, 1 supp, Route: AK, Drug form: SUPP, Daily, Dosing Weight 91.364, kg, PRN Constipation, Start date: 06/25/17 7:38:00 CHAIR INSTALLER, Duration: 30 day, Stop date: 7:37:00 CHAIR INSTALLER Notes: (Same As: Dulcolax, Bisco-Lax) Start Date: 06/25/17 Stop Date: 07/07/17 Status: Discontinued budesonide 0.5 mg/2 mL inhalation suspension 0.5 mg, 2 mL, Route: NEB, Drug form: SUSP, RBID, Dosing Weight 91.364, kg, Start date: 06/26/17 4:59:00 CHAIR INSTALLER, Duration: 30 day, Stop date: 07/25/17 20:00:00 CHAIR INSTALLER Notes: (Same As: Pulmicort) Start Date: 06/26/17 Stop Date: 07/07/17 Status: Discontinued calcium carbonate 500 mg (200 mg elemental calcium) oral tablet 500 mg, 1 tab, Route: PO, Drug form: CHEWTAB, PRN, Dosing Weight 91.364, kg, PRN Abnormal Lab Result, FOR ICU USE ONLY, Start date: 06/24/17 18:23:00 CHAIR INSTALLER, Durat ion: 30 day, Stop date: 07/24/17 18:22:00 CHAIR INSTALLER Notes: (Same As: Mirthas)Calcium Carbonate 500 im=411 mg elemental calcium Dose=_ mg calcium carbonate ( mg elemental calcium) Start Date: 06/24/17 Stop Date: 07/02/17 Status: Discontinued calcium carbonate 500 mg (200 mg elemental calcium) oral tablet 1,000 mg, 2 tab, Route: PO, Drug form: CHEWTAB, PRN, Dosing Weight 91.364, kg, P RN Abnormal Lab Result, FOR ICU USE ONLY, Start date: 06/24/17 18:23:00 CHAIR INSTALLER, Dur ation: 30 day, Stop date: 07/24/17 18:22:00 CHAIR INSTALLER Notes: (Same As: Mirthas)Calcium Carbonate 500 zz=773 mg elemental calcium Dose=_ mg calcium carbonate ( mg elemental calcium) Start Date: 06/24/17 Stop Date: 07/02/17 Status: Discontinued calcium gluconate + Sodium Chloride 0.9% IV 50 mL 1 gm, 10 mL, Route: IVPB, PRN, Dosing Weight 91.364, kg, PRN Abnormal Lab Result , Start date: 06/24/17 18:23:00 CHAIR INSTALLER, Duration: 30 day, Stop date: 07/24/17 18:22 :00 CHAIR INSTALLER, FOR ICU USE ONLY Notes: WASTE: F/P - Sink; E - Municipal Trash Bin Start Date: 06/24/17 Stop Date: 07/02/17 Status: Discontinued calcium gluconate + Sodium Chloride 0.9% IV 70 mL 3 gm, 30 mL, Route: IVPB, PRN, Dosing Weight 91.364, kg, PRN Abnormal Lab Result , For NON-ICU Patients Only., Start date: 07/03/17 7:50:00 CHAIR INSTALLER, Duration: 30 day , Stop date: 08/02/17 7:49:00 CHAIR INSTALLER Notes: WASTE: F/P - Sink; E - Municipal Trash Bin Start Date: 07/03/17 Stop Date: 07/07/17 Status: Discontinued calcium gluconate + Sodium Chloride 0.9% IV 80 mL 2 gm, 20 mL, Route: IVPB, PRN, Dosing Weight 91.364, kg, PRN Abnormal Lab Result , For NON-ICU Patients Only., Start date: 07/03/17 7:50:00 CHAIR INSTALLER, Duration: 30 day , Stop date: 08/02/17 7:49:00 CHAIR INSTALLER Notes: WASTE: F/P - Sink; E - Municipal Trash Bin Start Date: 07/03/17 Stop Date: 07/07/17 Status: Discontinued ceFAZolin (ANES) Route: IV, Drug form: INJ, ONCE, Stop date: 06/24/17 14:58:00 CHAIR INSTALLER Start Date: 06/24/17 Stop Date: 06/24/17 Status: Completed ceFAZolin (SCIP) 2 gm, 20 mL, Route: IVPB, Drug form: SOLN, ABXQ8H, Dosing Weight 91.364, kg, Sta rt date: 06/25/17 1:00:00 CHAIR INSTALLER, Duration: 3 doses or times, Stop date: 06/25/17 1 7:00:00 CHAIR INSTALLER, ABX Indication: Surgical Prophylaxis Notes: (Same as Ancef) Start Date: 06/25/17 Stop Date: 06/25/17 Status: Completed Cetacaine topical aerosol 1 spray, Route: TOP, ONCE, Drug form: AERO, Start date: 06/26/17 13:52:00 CHAIR INSTALLER, S top date: 06/26/17 13:52:00 CHAIR INSTALLER Notes: Cetacaine (oxwmovndnn-rijxcnwysu-wycgrfan 14-2-2%)WASTE: Aerosol - Return to Pharmacy (Same As: Cetacaine) Start Date: 06/26/17 Stop Date: 06/26/17 Status: Completed chlorhexidine topical 0.12% liquid 15 mL, Route: Swab Mouth, Q12H, Drug form: LIQ, Start date: 06/24/17 21:00:00 CS T, Duration: 30 day, Stop date: 07/24/17 9:00:00 CHAIR INSTALLER Notes: (Same As: Peridex) Start Date: 06/24/17 Stop Date: 06/25/17 Status: Discontinued chlorhexidine topical 0.12% liquid 15 mL, Route: Swab Mouth, PRN, Drug form: LIQ, PRN Other -See Comment, Start earle e: 06/24/17 18:55:00 CHAIR INSTALLER, Duration: 30 day, Stop date: 07/24/17 18:54:00 CHAIR INSTALLER Notes: (Same As: Peridex) Start Date: 06/24/17 Stop Date: 06/25/17 Status: Discontinued chlorhexidine topical 0.12% liquid 15 ml, Route: S&SPIT, Q12H, Drug form: LIQ, Start date: 06/24/17 21:00:00 CHAIR INSTALLER, Duration: 2 week, Stop date: 07/08/17 9:00:00 CHAIR INSTALLER Notes: (Same As: Peridex) Start Date: 06/24/17 Stop Date: 06/25/17 Status: Discontinued chlorhexidine topical 4% soap 1 appl, Route: BATHE, Q-M-W-F, Drug form: SOAP, Start date: 06/25/17 9:00:00 CHAIR INSTALLER , Duration: 30 day, Stop date: 07/23/17 9:00:00 CHAIR INSTALLER Notes: (Same As: Gonzalezns) Start Date: 06/25/17 Stop Date: 06/25/17 Status: Discontinued clopidogrel 75 mg, 1 tab, Route: PO, Drug form: TAB, Daily, Dosing Weight 91.364, kg, Start date: 06/25/17 9:00:00 CHAIR INSTALLER, Duration: 30 day, Stop date: 07/24/17 9:00:00 CHAIR INSTALLER Notes: (Same As: Plavix) Start Date: 06/25/17 Stop Date: 07/07/17 Status: Discontinued clopidogrel 75 mg oral tablet 75 mg=1 tab, PO, Daily, # 30 tab, 0 Refill(s) Start Date: 07/07/17 Stop Date: 07/23/17 Status: Discontinued Coreg 6.25 mg, 1 tab, Route: PO, Drug form: TAB, Q12H, Dosing Weight 91.364, kg, Start date: 06/25/17 21:00:00 CHAIR INSTALLER, Duration: 30 day, Stop date: 07/25/17 9:00:00 CHAIR INSTALLER Notes: Give with food. (Same As: Coreg) Start Date: 06/25/17 Stop Date: 07/03/17 Status: Discontinued dexmedetomidine (ANES) 200 microgram Route: IV, Drug form: INJ, Start date: 06/24/17 17:35:00 CHAIR INSTALLER, Stop date: 8 18:35:00 CHAIR INSTALLER Start Date: 06/24/17 Stop Date: 06/24/17 Status: Completed Dextrose 50% Syringe 12.5 gm, 25 mL, Route: IVP, Drug Form: INJ, Dosing Weight 91.364, kg, PRN, PRN B lood Glucose Results, Start date: 06/23/17 23:00:00 CHAIR INSTALLER, Duration: 30 day, Stop date: 07/23/17 22:59:00 CHAIR INSTALLER Start Date: 06/23/17 Stop Date: 06/24/17 Status: Discontinued Dextrose 50% Syringe 25 gm, 50 mL, Route: IVP, Drug Form: INJ, Dosing Weight 91.364, kg, PRN, PRN Blo od Glucose Results, Start date: 06/23/17 23:00:00 CHAIR INSTALLER, Duration: 30 day, Stop da te: 07/23/17 22:59:00 CHAIR INSTALLER Start Date: 06/23/17 Stop Date: 06/24/17 Status: Discontinued Dextrose 50% Syringe 12.5 gm, 25 mL, Route: IVP, Drug Form: INJ, Dosing Weight 91.364, kg, PRN, PRN B lood Glucose Results, Start date: 06/26/17 9:01:00 CHAIR INSTALLER, Duration: 30 day, Stop d ate: 07/26/17 9:00:00 CHAIR INSTALLER Start Date: 06/26/17 Stop Date: 07/07/17 Status: Discontinued Dextrose 50% Syringe 25 gm, 50 mL, Route: IVP, Drug Form: INJ, Dosing Weight 91.364, kg, PRN, PRN Blo od Glucose Results, Start date: 06/26/17 9:01:00 CHAIR INSTALLER, Duration: 30 day, Stop earle e: 07/26/17 9:00:00 CHAIR INSTALLER Start Date: 06/26/17 Stop Date: 07/07/17 Status: Discontinued Dextrose 50% Syringe 25 gm, 50 mL, Route: IVP, Drug Form: INJ, Dosing Weight 91.364, kg, PRN, PRN Blo od Glucose Results, Start date: 06/24/17 21:58:00 CHAIR INSTALLER, Duration: 30 day, Stop da te: 07/24/17 21:57:00 CHAIR INSTALLER Start Date: 06/24/17 Stop Date: 06/26/17 Status: Discontinued Dextrose 50% Syringe 12.5 gm, 25 mL, Route: IVP, Drug Form: INJ, Dosing Weight 91.364, kg, PRN, PRN B lood Glucose Results, Start date: 06/24/17 21:58:00 CHAIR INSTALLER, Duration: 30 day, Stop date: 07/24/17 21:57:00 CHAIR INSTALLER Start Date: 06/24/17 Stop Date: 06/26/17 Status: Discontinued Dilaudid 0.2 mg, 0.1 mL, Route: IVP, Drug form: INJ, ONCE, Dosing Weight 91.364, kg, Prio rity: STAT, Start date: 07/06/17 20:28:00 CHAIR INSTALLER, Stop date: 07/06/17 20:28:00 CHAIR INSTALLER Notes: Same as Dilaudid Start Date: 07/06/17 Stop Date: 07/07/17 Status: Completed docusate 100 mg, 1 cap, Route: PO, Drug form: CAP, BID, Dosing Weight 91.364, kg, Start d ate: 06/26/17 17:00:00 CHAIR INSTALLER, Duration: 30 day, Stop date: 07/26/17 9:00:00 CHAIR INSTALLER Notes: (Same as: Colace) (Do Not Crush) Start Date: 06/26/17 Stop Date: 07/07/17 Status: Discontinued docusate 100 mg, 1 cap, Route: PO, Drug form: CAP, BID, Dosing Weight 91.364, kg, PRN Con stipation, Start date: 06/24/17 18:23:00 CHAIR INSTALLER, Duration: 30 day, Stop date: 07/24 18:22:00 CHAIR INSTALLER Notes: (Same as: Colace) (Do Not Crush) Start Date: 06/24/17 Stop Date: 06/26/17 Status: Discontinued docusate sodium 100 mg oral capsule 100 mg=1 cap, PO, BID, # 60 cap, 0 Refill(s) Start Date: 07/07/17 Stop Date: 10/10/17 Status: Discontinued docusate-senna 50 mg-8.6 mg oral tablet 1 tab, Route: PO, Drug Form: TAB, Dosing Weight 91.364, kg, Daily, Start date: 0 06/24/17 9:00:00 CHAIR INSTALLER, Duration: 30 day, Stop date: 07/23/17 9:00:00 CHAIR INSTALLER Notes: (Same as Henna-S) Equiv. to Iman-Colace. Start Date: 06/24/17 Stop Date: 06/26/17 Status: Discontinued Dulcolax Laxative 10 mg, 1 supp, Route: AK, Drug form: SUPP, ONCE, Dosing Weight 91.364, kg, Prior ity: Within 4 hours, Start date: 06/26/17 11:39:00 CHAIR INSTALLER, Stop date: 06/26/17 11:3 9:00 CHAIR INSTALLER Notes: (Same As: Dulcolax, Bisco-Lax) Start Date: 06/26/17 Stop Date: 06/26/17 Status: Completed DuoNeb inhalation solution 3 ml, Route: NEB, Drug Form: SOLN, Dosing Weight 91.364, kg, RQ6H, PRN Other -Se e Comment, Start date: 07/03/17 10:51:00 CHAIR INSTALLER, Duration: 30 day, Stop date: 08/02 10:50:00 CHAIR INSTALLER Notes: (Same as: Duoneb) Start Date: 07/03/17 Stop Date: 07/07/17 Status: Discontinued DuoNeb inhalation solution 3 ml, Route: NEB, Drug Form: SOLN, Dosing Weight 91.364, kg, PRN, PRN Respirator y Protocol, Start date: 06/24/17 18:54:00 CHAIR INSTALLER, Duration: 30 day, Stop date: 07/04 07/20 18:53:00 CHAIR INSTALLER Notes: (Same as: Duoneb) Start Date: 06/24/17 Stop Date: 06/26/17 Status: Discontinued DuoNeb inhalation solution 3 ml, Route: NEB, Drug Form: SOLN, Dosing Weight 91.364, kg, RQ6H, Start date: 0 06/26/17 14:00:00 CHAIR INSTALLER, Duration: 30 day, Stop date: 07/26/17 8:00:00 CHAIR INSTALLER Notes: (Same as: Duoneb) Start Date: 06/26/17 Stop Date: 06/26/17 Status: Canceled DuoNeb inhalation solution 3 ml, Route: NEB, Drug Form: SOLN, Dosing Weight 91.364, kg, RQ6H, NOW, Start da te: 06/26/17 13:35:00 CHAIR INSTALLER, Duration: 30 day, Stop date: 07/26/17 8:00:00 CHAIR INSTALLER Notes: (Same as: Duoneb) Start Date: 06/26/17 Stop Date: 07/03/17 Status: Discontinued enalapril 0.625 mg, 0.5 mL, Route: IVP, Drug form: INJ, Q6H, Dosing Weight 91.364, kg, PRN Hypertension, Priority: NOW, Start date: 07/01/17 7:15:00 CHAIR INSTALLER, Duration: 30 day, Stop date: 07/31/17 7:14:00 CHAIR INSTALLER, SBP > 160 Notes: (Same as: Vasotec-IV) Start Date: 07/01/17 Stop Date: 07/07/17 Status: Discontinued Exparel 20 mL, Route: InFILtration(local), Drug Form: INJ, Dosing Weight 91.364, kg, ONC E, For Hemorrhoidectomy, Start date: 06/24/17 14:41:00 CHAIR INSTALLER, Stop date: 06/24/17 14:41:00 CHAIR INSTALLER Start Date: 06/24/17 Stop Date: 06/24/17 Status: Discontinued Exparel 20 mL, Route: InFILtration(local), Drug Form: INJ, Dosing Weight 91.364, kg, ONC ALL, For Hemorrhoidectomy, Start date: 06/24/17 16:00:00 CHAIR INSTALLER, Duration: 1 day, S top date: 06/25/17 15:59:00 CHAIR INSTALLER Notes: (Same as: Exparel) NOT FOR IV use Postoperative analgesia: Infi ltration (local): Dose is based on surgical site and volume required to cover th e area (in general, the maximum total dose is 266 mg).Bunionectomy: 7 mL into th e tissues surrounding the osteotomy and 1 mL into the subcutaneous tissue of the surgical site (total dose=8 mL [106 mg])Hemorrhoidectomy: 30 mL (20 mL vial dil uted with 10 mL NS) divided and administered as 6 injections of 5 mL each (total dose=30 mL [266 mg]) Start Date: 06/24/17 Stop Date: 07/02/17 Status: Discontinued fentaNYL 25 microgram, 0.5 mL, Route: IV, Drug form: INJ, Q2H, Dosing Weight 91.364, kg, PRN Pain Score 4-6, Start date: 06/24/17 18:54:00 CHAIR INSTALLER, Duration: 30 day, Stop da te: 07/24/17 18:53:00 CHAIR INSTALLER Notes: (Same as: Sublimaze) Preservative free. Start Date: 06/24/17 Stop Date: 06/25/17 Status: Discontinued fentaNYL (ANES) Route: IV, Drug form: INJ, ONCE, Stop date: 06/24/17 14:28:00 CHAIR INSTALLER Start Date: 06/24/17 Stop Date: 06/24/17 Status: Completed fentaNYL 1000 microgram in 20 mL NS (Titrate.) IV 1,000 microgram 1,000 microgram, 20 mL, Rate: Titrate, Start Dose: 50 microgram/hr, Titration: T itrate by 25 micrograms/hour every 15 minutes, Goal(s): Postop, Max Dose: 300 mc g/hr, Route: IV, Dosing Weight 91.364 kg, Total Volume: 20, Start date: 06/24/17 18:23:00 C... Start Date: 06/24/17 Stop Date: 06/25/17 Status: Discontinued furosemide 20 mg, 2 mL, Route: IVP, Drug form: INJ, ONCE, Dosing Weight 91.364, kg, Start d ate: 06/25/17 11:51:00 CHAIR INSTALLER, Stop date: 06/25/17 11:51:00 CHAIR INSTALLER Notes: (Same as: Lasix) Start Date: 06/25/17 Stop Date: 06/25/17 Status: Completed furosemide 60 mg, 6 mL, Route: IV, Drug form: INJ, ONCE, Dosing Weight 91.364, kg, Priority : NOW, Start date: 06/26/17 21:16:00 CHAIR INSTALLER, Stop date: 06/26/17 21:16:00 CHAIR INSTALLER Notes: (Same as: Lasix) MEDICATION WASTE Product Size: 40 mgProduct Was romain: _20__ mg Start Date: 06/26/17 Stop Date: 06/26/17 Status: Completed gabapentin 100 mg oral capsule 100 mg, 1 cap, Route: PO, Drug form: CAP, Q8H, Dosing Weight 91.364, kg, Priorit y: NOW, Start date: 06/28/17 18:45:00 CHAIR INSTALLER, Duration: 30 day, Stop date: 07/28/17 16:00:00 CHAIR INSTALLER Notes: (Same as: Neurontin) Start Date: 06/28/17 Stop Date: 06/29/17 Status: Discontinued glucagon 1 mg, Route: IM, Drug form: PDR/INJ, PRN, Dosing Weight 91.364, kg, PRN Blood Gl ucose Results, Start date: 06/23/17 23:00:00 CHAIR INSTALLER, Duration: 30 day, Stop date: 0 07/23/17 22:59:00 CHAIR INSTALLER Start Date: 06/23/17 Stop Date: 06/26/17 Status: Discontinued glucagon 1 mg, Route: IM, Drug form: PDR/INJ, PRN, Dosing Weight 91.364, kg, PRN Blood Gl ucose Results, Start date: 06/26/17 9:01:00 CHAIR INSTALLER, Duration: 30 day, Stop date: 9:00:00 CHAIR INSTALLER Start Date: 06/26/17 Stop Date: 07/07/17 Status: Discontinued heparin 5,000 unit, 1 mL, Route: SUB-Q, Drug form: INJ, Q12H, Dosing Weight 91.364, kg, Start date: 06/24/17 9:00:00 CHAIR INSTALLER, Duration: 30 day, Stop date: 07/23/17 21:00:00 CHAIR INSTALLER Notes: porcine heparin Start Date: 06/24/17 Stop Date: 07/07/17 Status: Discontinued heparin (ANES) Route: IV, Drug form: INJ, ONCE, Stop date: 06/24/17 15:15:00 CHAIR INSTALLER Start Date: 06/24/17 Stop Date: 06/24/17 Status: Completed hydrALAZINE 50 mg, 1 tab, Route: PO, Drug form: TAB, Q6H, Dosing Weight 91.364, kg, Start da te: 07/01/17 12:00:00 CHAIR INSTALLER, Duration: 30 day, Stop date: 07/31/17 6:00:00 CHAIR INSTALLER Notes: (Same as: Apresoline) May interfere w/enteral feedings Take With Food Start Date: 07/01/17 Stop Date: 07/07/17 Status: Discontinued hydrALAZINE 25 mg, 1 tab, Route: PO, Drug form: TAB, ONCE, Dosing Weight 91.364, kg, Priorit y: NOW, Start date: 06/27/17 8:14:00 CHAIR INSTALLER, Stop date: 06/27/17 8:14:00 CHAIR INSTALLER Notes: (Same as: Apresoline) May interfere w/enteral feedings Take With Food. Start Date: 06/27/17 Stop Date: 06/27/17 Status: Completed hydrALAZINE 10 mg, 0.5 mL, Route: IVP, Drug form: INJ, Q4H, Dosing Weight 91.364, kg, PRN Ot her -See Comment, Start date: 06/27/17 16:13:00 CHAIR INSTALLER, Duration: 30 day, Stop date : 07/27/17 16:12:00 CHAIR INSTALLER, Hypertension (SBP > 150) or (DBP > 90) Notes: (Same as: Apresoline)Push over 5 minutes Start Date: 06/27/17 Stop Date: 07/07/17 Status: Discontinued hydrALAZINE 25 mg, 1 tab, Route: PO, Drug form: TAB, Q8H, Dosing Weight 91.364, kg, Priority : NOW, Start date: 06/26/17 11:04:00 CHAIR INSTALLER, Duration: 30 day, Stop date: 07/26/17 8:00:00 CHAIR INSTALLER Notes: (Same as: Apresoline) May interfere w/enteral feedings Take With Food. Start Date: 06/26/17 Stop Date: 06/27/17 Status: Discontinued hydrALAZINE 25 mg, 1 tab, Route: PO, Drug form: TAB, Q6H, Dosing Weight 91.364, kg, Start da te: 06/27/17 18:00:00 CHAIR INSTALLER, Duration: 30 day, Stop date: 07/27/17 12:00:00 CHAIR INSTALLER Notes: (Same as: Apresoline) May interfere w/enteral feedings Take With Food. Start Date: 06/27/17 Stop Date: 07/01/17 Status: Discontinued hydrALAZINE 25 mg, 1 tab, Route: PO, Drug form: TAB, Q8H, Dosing Weight 91.364, kg, Start da te: 06/27/17 16:00:00 CHAIR INSTALLER, Duration: 30 day, Stop date: 07/27/17 8:00:00 CHAIR INSTALLER Notes: (Same as: Apresoline) May interfere w/enteral feedings Take With Food. Start Date: 06/27/17 Stop Date: 06/27/17 Status: Discontinued hydrALAZINE 25 mg oral tablet 25 mg, 1 tab, Route: PO, Drug form: TAB, TID, Dosing Weight 91.364, kg, Start da te: 06/23/17 17:00:00 CHAIR INSTALLER, Duration: 30 day, Stop date: 07/23/17 13:00:00 CHAIR INSTALLER Notes: (Same as: Apresoline) May interfere w/enteral feedings Take With Food. Start Date: 06/23/17 Stop Date: 06/24/17 Status: Discontinued hydrALAZINE 25 mg oral tablet 25 mg=1 tab, PO, TID, 0 Refill(s) Start Date: 06/23/17 Stop Date: 07/03/17 Status: Discontinued hydrALAZINE 50 mg oral tablet 50 mg=1 tab, PO, Q6H, # 120 tab, 0 Refill(s) Start Date: 07/07/17 Stop Date: 07/23/17 Status: Discontinued hydrochlorothiazide 25 mg oral tablet 25 mg=1 tab, PO, Daily, # 30 tab, 0 Refill(s) Start Date: 07/07/17 Stop Date: 07/23/17 Status: Discontinued hydrochlorothiazide 25 mg oral tablet 25 mg, 1 tab, Route: PO, Drug form: TAB, Daily, Dosing Weight 91.364, kg, Start date: 06/27/17 9:00:00 CHAIR INSTALLER, Duration: 30 day, Stop date: 07/26/17 9:00:00 CHAIR INSTALLER Notes: (Same as: Hydrodiuril) With food. Start Date: 06/27/17 Stop Date: 07/07/17 Status: Discontinued hydrochlorothiazide-losartan 25 mg-100 mg oral tablet 1 tab, PO, Daily, 0 Refill(s) Start Date: 06/23/17 Stop Date: 07/03/17 Status: Discontinued hydrochlorothiazide-losartan 25 mg-100 mg oral tablet 1 tab, Route: PO, Drug Form: TAB, Dosing Weight 91.364, kg, Daily, Start date: 0 06/24/17 9:00:00 CHAIR INSTALLER, Duration: 30 day, Stop date: 07/23/17 9:00:00 CHAIR INSTALLER Start Date: 06/24/17 Stop Date: 06/24/17 Status: Canceled HYDROmorphone 0.5mg/mL MANAGER EXPRESS (15mg/30 mL) 15 mg 15 mg, 30 mL, Route: IV, Initial Loading Dose: 0.4mg, MANAGER EXPRESS Dose: 0.2 mg, MANAGER EXPRESS Lock out: 10 minutes, Continuous Basal Rate: 0 mg, 4 Hour Limit (In MG): 4.8, Drug Fo rm: INJ, Continuous, Start date: 06/24/17 18:23:00 CHAIR INSTALLER, Duration: 30 day, Stop d ate: ... Notes: (Same as: Dilaudid) conc=0.5 mg/mlHydromorphone MANAGER EXPRESS Dose: ;Delay: ;Basal: Start Date: 06/24/17 Stop Date: 06/26/17 Status: Discontinued ibuprofen 200 mg oral tablet 400 mg, 2 tab, Route: PO, Drug form: TAB, Q4H, Dosing Weight 91.364, kg, PRN Ruben n Score 1-3, Start date: 07/06/17 20:28:00 CHAIR INSTALLER, Duration: 30 day, Stop date: 11/17 20:27:00 CHAIR INSTALLER Notes: (Same as: Advil) Give with food. Start Date: 07/06/17 Stop Date: 07/07/17 Status: Discontinued Imdur 30 mg, 1 tab, Route: PO, Drug form: ERTAB, QAM, Dosing Weight 91.364, kg, Priori ty: Within 4 hours, Start date: 06/28/17 9:00:00 CHAIR INSTALLER, Duration: 30 day, Stop earle e: 07/27/17 9:00:00 CHAIR INSTALLER Notes: (Same as:Imdur)"Do Not Crush" Take on empty stomach/ full glass of water . Do not crush Start Date: 06/28/17 Stop Date: 07/01/17 Status: Discontinued Imdur 30 mg, 1 tab, Route: PO, Drug form: ERTAB, Q12H, Dosing Weight 91.364, kg, Start date: 07/01/17 21:00:00 CHAIR INSTALLER, Duration: 30 day, Stop date: 07/31/17 9:00:00 CHAIR INSTALLER Notes: (Same as:Imdur)"Do Not Crush" Take on empty stomach/ full glass of water . Do not crush Start Date: 07/01/17 Stop Date: 07/07/17 Status: Discontinued insulin detemir 12 unit, 0.12 mL, Route: SUB-Q, Drug form: SOLN, Daily, Dosing Weight 91.364, kg , Start date: 06/27/17 9:00:00 CHAIR INSTALLER, Duration: 30 day, Stop date: 07/26/17 9:00:0 0 CHAIR INSTALLER Notes: Non-Formulary Drug(Same as Levemir)Do not hold insulin without contacting prescriberWASTE: F/P - Black; E - Municipal Trash Bin "single patient use only" Start Date: 06/27/17 Stop Date: 07/07/17 Status: Discontinued insulin detemir 10 unit, 0.1 mL, Route: SUB-Q, Drug form: SOLN, Daily, Dosing Weight 91.364, kg, Priority: NOW, Start date: 06/26/17 7:25:00 CHAIR INSTALLER, Duration: 30 day, Stop date: 0 07/25/17 9:00:00 CHAIR INSTALLER Notes: Non-Formulary Drug(Same as Levemir)Do not hold insulin without contacting prescriberWASTE: F/P - Black; E - [facility] Trash Bin "single patient use only" Start Date: 06/26/17 Stop Date: 06/27/17 Status: Discontinued insulin glargine 5 unit, 0.05 mL, Route: SUB-Q, Drug form: SOLN, Daily, Dosing Weight 91.364, kg, Priority: STAT, Start date: 06/23/17 23:00:00 CHAIR INSTALLER, Duration: 30 day, Stop date: 07/23/17 9:00:00 CHAIR INSTALLER Notes: Same as: Lantus)Do not hold insulin without contacting prescriberWASTE: F /P - Black; E - [facility] Trash [facility] Start Date: 06/23/17 Stop Date: 06/24/17 Status: Discontinued insulin lispro 2 unit, 0.02 mL, Route: SUB-Q, Drug form: SOLN, TID-Before Meals, Dosing Weight 91.364, kg, PRN Blood Glucose Results, Start date: 06/23/17 23:00:00 CHAIR INSTALLER, Durati on: 30 day, Stop date: 07/23/17 22:59:00 CHAIR INSTALLER Notes: (Same as: Humalog ) Roll in palms of hands gently; Do not shake `vigorou sly. "Single Patient Use Only " WASTE: F/P - Black; E - [facility] St able for 28 days at room temperature.Expires in days from Da te Start Date: 06/23/17 Stop Date: 06/24/17 Status: Discontinued insulin lispro 1 unit, 0.01 mL, Route: SUB-Q, Drug form: SOLN, TID-Before Meals, Dosing Weight 91.364, kg, PRN Blood Glucose Results, Start date: 06/23/17 23:00:00 CHAIR INSTALLER, Durati on: 30 day, Stop date: 07/23/17 22:59:00 CHAIR INSTALLER Notes: (Same as: Humalog ) Roll in palms of hands gently; Do not shake `vigorou sly. "Single Patient Use Only " WASTE: F/P - Black; E - [facility] [address] able for 28 days at room temperature.Expires in days from Da te Start Date: 06/23/17 Stop Date: 06/24/17 Status: Discontinued insulin lispro 3 unit, 0.03 mL, Route: SUB-Q, Drug form: SOLN, TID-Before Meals, Dosing Weight 91.364, kg, PRN Blood Glucose Results, Start date: 06/23/17 23:00:00 CHAIR INSTALLER, Durati on: 30 day, Stop date: 07/23/17 22:59:00 CHAIR INSTALLER Notes: (Same as: Humalog ) Roll in palms of hands gently; Do not shake `vigorou sly. "Single Patient Use Only " WASTE: F/P - Black; E - [facility] [address] able for 28 days at room temperature.Expires in days from Da te Start Date: 06/23/17 Stop Date: 06/24/17 Status: Discontinued insulin lispro 5 unit, 0.05 mL, Route: SUB-Q, Drug form: SOLN, TID-Before Meals, Dosing Weight 91.364, kg, PRN Blood Glucose Results, Start date: 06/23/17 23:00:00 CHAIR INSTALLER, Durati on: 30 day, Stop date: 07/23/17 22:59:00 CHAIR INSTALLER Notes: (Same as: Humalog ) Roll in palms of hands gently; Do not shake `vigorou sly. "Single Patient Use Only " WASTE: F/P - Black; E - [facility] [address] able for 28 days at room temperature.Expires in days from Da te Start Date: 06/23/17 Stop Date: 06/24/17 Status: Discontinued insulin lispro 4 unit, 0.04 mL, Route: SUB-Q, Drug form: SOLN, TID-Before Meals, Dosing Weight 91.364, kg, PRN Blood Glucose Results, Start date: 06/23/17 23:00:00 CHAIR INSTALLER, Durati on: 30 day, Stop date: 07/23/17 22:59:00 CHAIR INSTALLER Notes: (Same as: Humalog ) Roll in palms of hands gently; Do not shake `vigorou sly. "Single Patient Use Only " WASTE: F/P - Black; E - [facility] [address] able for 28 days at room temperature.Expires in days from Da te Start Date: 06/23/17 Stop Date: 06/24/17 Status: Discontinued insulin lispro 8 unit, 0.08 mL, Route: SUB-Q, Drug form: SOLN, TID-Before Meals, Dosing Weight 91.364, kg, PRN Blood Glucose Results, Start date: 06/26/17 9:01:00 CHAIR INSTALLER, Duratio n: 30 day, Stop date: 07/26/17 9:00:00 CHAIR INSTALLER Notes: (Same as: Humalog ) Roll in palms of hands gently; Do not shake `vigorou sly. "Single Patient Use Only " WASTE: F/P - Black; E - [facility] [address] able for 28 days at room temperature.Expires in days from Da te Start Date: 06/26/17 Stop Date: 07/07/17 Status: Discontinued insulin lispro 6 unit, 0.06 mL, Route: SUB-Q, Drug form: SOLN, TID-Before Meals, Dosing Weight 91.364, kg, PRN Blood Glucose Results, Start date: 06/26/17 9:01:00 CHAIR INSTALLER, Duratio n: 30 day, Stop date: 07/26/17 9:00:00 CHAIR INSTALLER Notes: (Same as: Humalog ) Roll in palms of hands gently; Do not shake `vigorou sly. "Single Patient Use Only " WASTE: F/P - Black; E - [facility] [address] able for 28 days at room temperature.Expires in days from Da te Start Date: 06/26/17 Stop Date: 07/07/17 Status: Discontinued insulin lispro 4 unit, 0.04 mL, Route: SUB-Q, Drug form: SOLN, TID-Before Meals, Dosing Weight 91.364, kg, PRN Blood Glucose Results, Start date: 06/26/17 9:01:00 CHAIR INSTALLER, Duratio n: 30 day, Stop date: 07/26/17 9:00:00 CHAIR INSTALLER Notes: (Same as: Humalog ) Roll in palms of hands gently; Do not shake `vigorou sly. "Single Patient Use Only " WASTE: F/P - Black; E - [facility] [address] able for 28 days at room temperature.Expires in days from Da te Start Date: 06/26/17 Stop Date: 07/07/17 Status: Discontinued insulin lispro 2 unit, 0.02 mL, Route: SUB-Q, Drug form: SOLN, TID-Before Meals, Dosing Weight 91.364, kg, PRN Blood Glucose Results, Start date: 06/26/17 9:01:00 CHAIR INSTALLER, Duratio n: 30 day, Stop date: 07/26/17 9:00:00 CHAIR INSTALLER Notes: (Same as: Humalog ) Roll in palms of hands gently; Do not shake `vigorou sly. "Single Patient Use Only " WASTE: F/P - Black; E - [facility] [address] able for 28 days at room temperature.Expires in days from Da te Start Date: 06/26/17 Stop Date: 07/07/17 Status: Discontinued insulin lispro 10 unit, 0.1 mL, Route: SUB-Q, Drug form: SOLN, TID-Before Meals, Dosing Weight 91.364, kg, PRN Blood Glucose Results, Start date: 06/26/17 9:01:00 CHAIR INSTALLER, Duratio n: 30 day, Stop date: 07/26/17 9:00:00 CHAIR INSTALLER Notes: (Same as: Humalog ) Roll in palms of hands gently; Do not shake `vigorou sly. "Single Patient Use Only " WASTE: F/P - Black; E - [facility] [address] able for 28 days at room temperature.Expires in days from Da te Start Date: 06/26/17 Stop Date: 07/07/17 Status: Discontinued Insulin regular 2 unit, 0.02 mL, Route: SUB-Q, Drug form: SOLN, TID-Before Meals, Dosing Weight 91.364, kg, PRN Blood Glucose Results, Start date: 06/24/17 18:23:00 CHAIR INSTALLER, Durati on: 30 day, Stop date: 07/24/17 18:22:00 CHAIR INSTALLER Notes: (Same as: Humulin R) Roll in palms of hands gently; Do not shake vigorou sly. "single patient use only"(Restricted to patients requiring a dose > 60 units)WASTE: F/P - Black; E - [facility] Trash Bin Stable for 28 days at room temperatureExpires in days from Date Start Date: 06/24/17 Stop Date: 06/24/17 Status: Discontinued Insulin regular 1 unit, 0.01 mL, Route: SUB-Q, Drug form: SOLN, TID-Before Meals, Dosing Weight 91.364, kg, PRN Blood Glucose Results, Start date: 06/24/17 18:23:00 CHAIR INSTALLER, Durati on: 30 day, Stop date: 07/24/17 18:22:00 CHAIR INSTALLER Notes: (Same as: Humulin R) Roll in palms of hands gently; Do not shake vigorou sly. "single patient use only"(Restricted to patients requiring a dose > 60 units)WASTE: F/P - Black; E - [facility] Trash Bin Stable for 28 days at room temperatureExpires in days from Date Start Date: 06/24/17 Stop Date: 06/24/17 Status: Discontinued Insulin regular 4 unit, 0.04 mL, Route: SUB-Q, Drug form: SOLN, TID-Before Meals, Dosing Weight 91.364, kg, PRN Blood Glucose Results, Start date: 06/24/17 18:23:00 CHAIR INSTALLER, Durati on: 30 day, Stop date: 07/24/17 18:22:00 CHAIR INSTALLER Notes: (Same as: Humulin R) Roll in palms of hands gently; Do not shake vigorou sly. "single patient use only"(Restricted to patients requiring a dose > 60 units)WASTE: F/P - Black; E - [facility] Trash Bin Stable for 28 days at room temperatureExpires in days from Date Start Date: 06/24/17 Stop Date: 06/24/17 Status: Discontinued Insulin regular 5 unit, 0.05 mL, Route: SUB-Q, Drug form: SOLN, TID-Before Meals, Dosing Weight 91.364, kg, PRN Blood Glucose Results, Start date: 06/24/17 18:23:00 CHAIR INSTALLER, Durati on: 30 , Stop date: 07/24/17 18:22:00 CHAIR INSTALLER Notes: (Same as: Humulin R) Roll in palms of hands gently; Do not shake vigorou sly. "single patient use only"(Restricted to patients requiring a dose > 60 units)WASTE: F/P - Black; E - [facility] Trash Bin Stable for 28 days at room temperatureExpires in days from Date Start Date: 06/24/17 Stop Date: 06/24/17 Status: Discontinued Insulin regular 3 unit, 0.03 mL, Route: SUB-Q, Drug form: SOLN, TID-Before Meals, Dosing Weight 91.364, kg, PRN Blood Glucose Results, Start date: 06/24/17 18:23:00 CHAIR INSTALLER, Durati on: 30 day, Stop date: 07/24/17 18:22:00 CHAIR INSTALLER Notes: (Same as: Humulin R) Roll in palms of hands gently; Do not shake vigorou sly. "single patient use only"(Restricted to patients requiring a dose > 60 units)WASTE: F/P - Black; E - [facility] Trash Bin Stable for 28 days at room temperatureExpires in days from Date Start Date: 06/24/17 Stop Date: 06/24/17 Status: Discontinued Insulin regular (ANES) Route: IV, Drug form: INJ, ONCE, Stop date: 06/24/17 17:40:00 CHAIR INSTALLER Start Date: 06/24/17 Stop Date: 06/24/17 Status: Completed Insulin regular 100 unit + 99 mL, Rate: Start Insulin Drip Per ICU Protocol, Dosing Weight 91.364, kg, Rout e: IVPB, Total Volume: 100, Start Date: 06/24/17 21:58:00 CHAIR INSTALLER, Duration: 30 day, Stop date: 07/24/17 21:57:00 CHAIR INSTALLER, Replace Every: 24 hr Notes: Final Concentration 1unit/1mlWASTE: F/P - Black; E - [facility] Trash Bin Start Date: 06/24/17 Stop Date: 06/26/17 Status: Discontinued Isolyte S PH 7.4 (ANES) 1000 mL Route: IV, Total Volume: 1,000, Start date: 06/24/17 14:15:00 CHAIR INSTALLER, Stop date: 15:15:00 CHAIR INSTALLER Start Date: 06/24/17 Stop Date: 06/24/17 Status: Completed isosorbide mononitrate 30 mg oral tablet, extended release 30 mg=1 tab, PO, Q12H, # 60 tab, 0 Refill(s) Start Date: 07/07/17 Stop Date: 07/23/17 Status: Discontinued Lasix 40 mg, 4 mL, Route: IVP, Drug form: INJ, Daily, Dosing Weight 91.364, kg, Start date: 06/30/17 9:00:00 CHAIR INSTALLER, Duration: 3 day, Stop date: 07/02/17 9:00:00 CHAIR INSTALLER Notes: (Same as: Lasix) MEDICATION WASTE Product Size: 40 mgProduct Was romain: _0_ mg Start Date: 06/30/17 Stop Date: 07/01/17 Status: Discontinued Lasix 20 mg, 2 mL, Route: IVP, Drug form: INJ, ONCE, Dosing Weight 91.364, kg, Priorit y: NOW, Start date: 06/26/17 4:52:00 CHAIR INSTALLER, Stop date: 06/26/17 4:52:00 CHAIR INSTALLER Notes: (Same as: Lasix) Start Date: 06/26/17 Stop Date: 06/26/17 Status: Completed Lasix 40 mg, 4 mL, Route: IVP, Drug form: INJ, ONCE, Dosing Weight 91.364, kg, Start d ate: 06/26/17 16:00:00 CHAIR INSTALLER, Stop date: 06/26/17 16:00:00 CHAIR INSTALLER Notes: (Same as: Lasix) MEDICATION WASTE Product Size: 40 mgProduct Was romain: ___ mg Start Date: 06/26/17 Stop Date: 06/26/17 Status: Completed Lasix 20 mg, 2 mL, Route: IVP, Drug form: INJ, ONCE, Dosing Weight 91.364, kg, Priorit y: NOW, Start date: 06/26/17 9:00:00 CHAIR INSTALLER, Stop date: 06/26/17 9:00:00 CHAIR INSTALLER Notes: (Same as: Lasix) Start Date: 06/26/17 Stop Date: 06/26/17 Status: Completed Lasix 40 mg, 4 mL, Route: IVP, Drug form: INJ, ONCE, Dosing Weight 91.364, kg, Priorit y: STAT, Start date: 06/26/17 12:17:00 CHAIR INSTALLER, Stop date: 06/26/17 12:17:00 CHAIR INSTALLER Notes: (Same as: Lasix) MEDICATION WASTE Product Size: 40 mgProduct Was romain: ___ mg Start Date: 06/26/17 Stop Date: 06/26/17 Status: Completed Lasix 40 mg, 4 mL, Route: IVP, Drug form: INJ, BID Diuretic, Dosing Weight 91.364, kg, Priority: NOW, Start date: 06/27/17 8:16:00 CHAIR INSTALLER, Duration: 2 day, Stop date: 6:00:00 CHAIR INSTALLER Notes: (Same as: Lasix) MEDICATION WASTE Product Size: 40 mgProduct Was romain: ___ mg Start Date: 06/27/17 Stop Date: 06/29/17 Status: Completed Lasix 20 mg oral tablet 20 mg=1 tab, PO, Daily, # 7 tab, 0 Refill(s) Start Date: 07/07/17 Stop Date: 07/23/17 Status: Discontinued Lasix 20 mg oral tablet 40 mg, 1 tab, Route: PO, Drug form: TAB, Daily, Dosing Weight 91.364, kg, Start date: 07/02/17 9:00:00 CHAIR INSTALLER, Duration: 30 day, Stop date: 07/31/17 9:00:00 CHAIR INSTALLER Notes: (Same as: Lasix) May cause GI upset. Give with food or milk. Start Date: 07/02/17 Stop Date: 07/07/17 Status: Discontinued lidocaine (ANES) Route: IV, Drug form: INJ, ONCE, Stop date: 06/24/17 15:20:00 CHAIR INSTALLER Start Date: 06/24/17 Stop Date: 06/24/17 Status: Completed Lipitor 80 mg oral tablet 80 mg=1 tab, PO, Daily, # 90 tab, 1 Refill(s) Start Date: 06/23/17 Stop Date: 06/28/17 Status: Discontinued losartan 100 mg, 2 tab, Route: PO, Drug form: TAB, Daily, Dosing Weight 91.364, kg, Start date: 06/24/17 9:00:00 CHAIR INSTALLER, Duration: 30 day, Stop date: 07/23/17 9:00:00 CHAIR INSTALLER Notes: (Same as: Cristiane) Start Date: 06/24/17 Stop Date: 07/07/17 Status: Discontinued losartan 50 mg oral tablet 100 mg=2 tab, PO, Daily, # 60 tab, 0 Refill(s) Start Date: 07/07/17 Stop Date: 07/23/17 Status: Discontinued magnesium oxide 800 mg, 2 tab, Route: PO, Drug form: TAB, PRN, Dosing Weight 91.364, kg, PRN Abn ormal Lab Result, FOR ICU USE ONLY, Start date: 06/24/17 18:23:00 CHAIR INSTALLER, Duration: 30 day, Stop date: 07/24/17 18:22:00 CHAIR INSTALLER Notes: (Same as: Mag-Ox 400)Magnesium oxide [id number] elemental magnesiumDose= ____mg magnesium oxide (___mg elemental magnesium) Start Date: 06/24/17 Stop Date: 07/02/17 Status: Discontinued magnesium oxide 800 mg, 2 tab, Route: PO, Drug form: TAB, PRN, Dosing Weight 91.364, kg, PRN Abn ormal Lab Result, For NON-ICU Patients Only., Start date: 07/03/17 7:50:00 CHAIR INSTALLER, Duration: 30 day, Stop date: 08/02/17 7:49:00 CHAIR INSTALLER Notes: (Same as: Mag-Ox 400)Magnesium oxide [id number] elemental magnesiumDose= ____mg magnesium oxide (___mg elemental magnesium) Start Date: 07/03/17 Stop Date: 07/07/17 Status: Discontinued magnesium sulfate 2 gm, 50 mL, Route: IVPB, Drug form: INJ, PRN, Dosing Weight 91.364, kg, PRN Abn ormal Lab Result, Start date: 06/24/17 18:23:00 CHAIR INSTALLER, Duration: 30 day, Stop date : 07/24/17 18:22:00 CHAIR INSTALLER, FOR ICU USE ONLY Notes: WASTE: F/P - Sink; E - [facility] Trash Bin Start Date: 06/24/17 Stop Date: 07/02/17 Status: Discontinued magnesium sulfate 1 gm, 100 mL, Route: IVPB, Drug form: INJ, PRN, Dosing Weight 91.364, kg, PRN Ab normal Lab Result, For NON-ICU Patients Only., Start date: 07/03/17 7:50:00 CHAIR INSTALLER, Duration: 30 day, Stop date: 08/02/17 7:49:00 CHAIR INSTALLER Notes: WASTE: F/P - Sink; E - [facility] Trash [facility] Start Date: 07/03/17 Stop Date: 07/07/17 Status: Discontinued magnesium sulfate 2 gm, 50 mL, Route: IVPB, Drug form: INJ, PRN, Dosing Weight 91.364, kg, PRN Abn ormal Lab Result, For NON-ICU Patients Only., Start date: 07/03/17 7:50:00 CHAIR INSTALLER, Duration: 30 day, Stop date: 08/02/17 7:49:00 CHAIR INSTALLER Notes: WASTE: F/P - Sink; E - [facility] Trash Bin Start Date: 07/03/17 Stop Date: 07/07/17 Status: Discontinued magnesium sulfate (ANES) Route: IV, Drug form: INJ, ONCE, Stop date: 06/24/17 17:35:00 CHAIR INSTALLER Start Date: 06/24/17 Stop Date: 06/24/17 Status: Completed melatonin 3 mg oral tablet 3 mg, 1 tab, Route: PO, Drug Form: TAB, Dosing Weight 91.364, kg, Bedtime, PRN a s needed for insomnia, Start date: 06/28/17 22:39:00 CHAIR INSTALLER, Duration: 30 day, Stop date: 07/28/17 22:38:00 CHAIR INSTALLER Notes: (Same as: Melatonin) Start Date: 06/28/17 Stop Date: 06/29/17 Status: Discontinued melatonin 3 mg oral tablet 3 mg, 1 tab, Route: PO, Drug Form: TAB, Dosing Weight 91.364, kg, Bedtime, Start date: 06/30/17 21:00:00 CHAIR INSTALLER, Duration: 30 day, Stop date: 07/29/17 21:00:00 CHAIR INSTALLER Notes: (Same as: Melatonin) Start Date: 06/30/17 Stop Date: 07/07/17 Status: Discontinued midazolam (ANES) Route: IV, Drug form: SOLN, ONCE, Stop date: 06/24/17 14:28:00 CHAIR INSTALLER Start Date: 06/24/17 Stop Date: 06/24/17 Status: Completed MiraLax 17 gm, 1 pkt, Route: PO, Drug form: PWDR, Daily, Dosing Weight 91.364, kg, PRN C onstipation, Start date: 06/26/17 11:03:00 CHAIR INSTALLER, Duration: 30 day, Stop date: 11:02:00 CHAIR INSTALLER Notes: Dissolve in 8 oz of water or juice.(Same as: Miralax) Start Date: 06/26/17 Stop Date: 06/28/17 Status: Discontinued morphine Sulfate 2 mg, 1 mL, Route: IVP, Drug form: INJ, Q4H, Dosing Weight 91.364, kg, PRN Pain Score 4-6, Start date: 07/05/17 9:51:00 CHAIR INSTALLER, Duration: 30 day, Stop date: 9:50:00 CHAIR INSTALLER Notes: (Same as:MORPhine Sulfate) Start Date: 07/05/17 Stop Date: 07/07/17 Status: Discontinued Mylicon 80 mg, 1 tab, Route: CHEW, Drug form: CHEWTAB, TID, Dosing Weight 91.364, kg, Pr iority: Within 4 hours, Start date: 06/26/17 13:00:00 CHAIR INSTALLER, Duration: 30 day, Sto p date: 07/26/17 9:00:00 CHAIR INSTALLER Notes: (Same as: Mylicon) Start Date: 06/26/17 Stop Date: 06/28/17 Status: Discontinued naloxone 0.04 mg, 0.1 mL, Route: IVP, Drug form: INJ, Q2MIN, Dosing Weight 91.364, kg, AK N Narcotic Reversal, Start date: 06/24/17 18:23:00 CHAIR INSTALLER, Duration: 30 day, Stop d ate: 07/24/17 18:22:00 CHAIR INSTALLER Notes: Same as Narcan Start Date: 06/24/17 Stop Date: 06/26/17 Status: Discontinued neostigmine 2 mg, 2 mL, Route: IV, Drug form: INJ, ONCE, Dosing Weight 91.364, kg, Priority: NOW, Start date: 06/26/17 13:36:00 CHAIR INSTALLER, Stop date: 06/26/17 13:36:00 CHAIR INSTALLER Notes: Same as: Prostigmin MEDICATION WASTE Product Size: 5 mgProduct W asted: ___ mg Start Date: 06/26/17 Stop Date: 06/26/17 Status: Completed niCARdipine 40 mg in NS 200 mL (Titrate.) IV 40 mg 40 mg, 200 mL, Rate: Titrate, Start Dose: 5 mg/hr, Titration: 2.5 mg/hr every 15 minutes, Goal(s): SBP <140, Max Dose: 15 mg/hr, Route: IV, Dosing Weight 91.364 kg, Total Volume: 200, Start date: 06/24/17 20:06:00 CHAIR INSTALLER, Duration: 30 day, Stop date: .. Notes: Same as: CardeneConcentration: (0.2 mg /1 ml ) Start Date: 06/24/17 Stop Date: 06/27/17 Status: Discontinued nitroglycerin 0.4 mg, 1 tab, Route: SL, Drug form: TAB, Q5Min, Dosing Weight 91.364, kg, PRN C hest Pain, Start date: 06/24/17 18:23:00 CHAIR INSTALLER, Duration: 30 day, Stop date: 07/24 18:22:00 CHAIR INSTALLER Notes: (Same as:Nitroquick, Nitrostat)"Do Not Crush" Sublingual tablet Start Date: 06/24/17 Stop Date: 07/07/17 Status: Discontinued [place] 5/325 oral tablet 1 tab, Route: PO, Drug Form: TAB, Dosing Weight 91.364, kg, Q4H, PRN Pain Score 1-3, Start date: 06/25/17 17:54:00 CHAIR INSTALLER, Duration: 30 day, Stop date: 07/25/17 17 :53:00 CHAIR INSTALLER Notes: (Same as: [place] 325/5) Do not exceed 4gm/day of acetaminophen. Start Date: 06/25/17 Stop Date: 06/28/17 Status: Discontinued [place] 5/325 oral tablet 2 tab, Route: PO, Drug Form: TAB, Dosing Weight 91.364, kg, Q4H, PRN Pain Score 4-6, Start date: 06/25/17 17:54:00 CHAIR INSTALLER, Duration: 30 day, Stop date: 07/25/17 17 :53:00 CHAIR INSTALLER Notes: (Same as: [place] 325/5) Do not exceed 4gm/day of acetaminophen. Start Date: 06/25/17 Stop Date: 06/28/17 Status: Discontinued normal saline 0.9% IV 1,000 mL 1,000 mL, Rate: 100 ml/hr, Infuse over: 10 hr, Route: IV, Dosing Weight 91.364 k g, Total Volume: 1,000, Start date: 06/23/17 8:56:00 CHAIR INSTALLER, Duration: 30 day, Stop date: 07/23/17 8:55:00 CHAIR INSTALLER, 2.1, m2 Start Date: 06/23/17 Stop Date: 06/25/17 Status: Discontinued ocular lubricant 1 appl, Route: BOTH EYES, Q6H, Drug form: OINT, Start date: 06/25/17 0:00:00 CHAIR INSTALLER , Duration: 30 day, Stop date: 07/24/17 18:00:00 CHAIR INSTALLER Notes: (Same as: Lacri-Lube, Duratears Naturale, Artificial Tears, and Tears Aga in ) Start Date: 06/25/17 Stop Date: 06/25/17 Status: Discontinued Ofirmev 1,000 mg, 100 mL, Route: IV, Drug form: INJ, ONCE, Dosing Weight 91.364, kg, for > or=50 kg, Start date: 06/25/17 3:47:00 CHAIR INSTALLER, Stop date: 06/25/17 3:47:00 CHAIR INSTALLER Notes: Infuse over 15 minutesDo not exceed 4gm/day of acetaminophen MEDICAT ION WASTE Product Size: 1000 mgProduct Wasted: ___ mg Start Date: 06/25/17 Stop Date: 06/25/17 Status: Completed oxyCODONE 5 mg oral tablet 5 mg, 1 tab, Route: PO, Drug form: TAB, Q4H, Dosing Weight 91.364, kg, PRN Pain Score 4-6, Start date: 07/02/17 11:43:00 CHAIR INSTALLER, Duration: 30 day, Stop date: 08/01 11:42:00 CHAIR INSTALLER Notes: (Same as: Roxicodone) Start Date: 07/02/17 Stop Date: 07/07/17 Status: Discontinued phenol topical 1.4% spray 1 spray, Route: TOP, QID, Drug form: SPRY, Start date: 06/28/17 13:00:00 CHAIR INSTALLER, Du ration: 30 day, Stop date: 07/28/17 9:00:00 CHAIR INSTALLER Notes: Chloraseptic [place](Same as: Chloraseptic, Sore Throat [place])WASTE: F/P - Black; E - Municipal Trash Bin Start Date: 06/28/17 Stop Date: 07/02/17 Status: Discontinued pneumococcal 13-valent vaccine 0.5 mL, Route: IM, Drug Form: INJ, Daily, Start date: 06/26/17 9:00:00 CHAIR INSTALLER, Dura tion: 1 doses or times, Stop date: 06/26/17 9:00:00 CHAIR INSTALLER Notes: Shake well prior to use (Same as: Prevnar 13) Start Date: 06/26/17 Stop Date: 06/26/17 Status: Completed potassium chloride 20 mEq, 100 mL, Route: IVPB, Drug form: INJ, PRN, Dosing Weight 91.364, kg, PRN Abnormal Lab Result, Via central line, Start date: 06/24/17 18:23:00 CHAIR INSTALLER, Durati on: 30 day, Stop date: 07/24/17 18:22:00 CHAIR INSTALLER, FOR ICU USE ONLY Notes: (Same as: KCL) Infuse no faster than 10 mEq/hr if given peripherally. Start Date: 06/24/17 Stop Date: 07/02/17 Status: Discontinued potassium chloride 10 mEq, 50 mL, Route: IVPB, Drug form: INJ, PRN, Dosing Weight 91.364, kg, PRN A bnormal Lab Result, Via peripheral line, Start date: 06/24/17 18:23:00 CHAIR INSTALLER, Dura tion: 30 day, Stop date: 07/24/17 18:22:00 CHAIR INSTALLER, FOR ICU USE ONLY Notes: (Same as: KCL) Infuse no faster than 10mEq/hr if given peripherally Start Date: 06/24/17 Stop Date: 07/02/17 Status: Discontinued potassium chloride 20 mEq, 1 tab, Route: PO, Drug form: ERTAB, PRN, Dosing Weight 91.364, kg, PRN A bnormal Lab Result, Start date: 06/24/17 18:23:00 CHAIR INSTALLER, Duration: 30 day, Stop da te: 07/24/17 18:22:00 CHAIR INSTALLER, FOR ICU USE ONLY Notes: (Same as: K-Dur 20)"Do Not Crush" With food and full glass of water Start Date: 06/24/17 Stop Date: 07/02/17 Status: Discontinued potassium chloride 20 mEq, 15 mL, Route: NJ, Drug form: LIQ, PRN, Dosing Weight 91.364, kg, PRN Abn ormal Lab Result, Start date: 06/24/17 18:23:00 CHAIR INSTALLER, Duration: 30 day, Stop date : 07/24/17 18:22:00 CHAIR INSTALLER, FOR ICU USE ONLY Notes: (Same as: Potassium Chloride) Start Date: 06/24/17 Stop Date: 07/02/17 Status: Discontinued potassium chloride 20 mEq, 1 tab, Route: PO, Drug form: ERTAB, PRN, Dosing Weight 91.364, kg, PRN A bnormal Lab Result, For NON-ICU Patients Only, Start date: 07/03/17 7:50:00 CHAIR INSTALLER, Duration: 30 day, Stop date: 08/02/17 7:49:00 CHAIR INSTALLER Notes: (Same as: K-Dur 20)"Do Not Crush" With food and full glass of water Start Date: 07/03/17 Stop Date: 07/07/17 Status: Discontinued potassium chloride 10 mEq, 50 mL, Route: IVPB, Drug form: INJ, PRN, Dosing Weight 91.364, kg, PRN A bnormal Lab Result, For NON-ICU Patients Only, Start date: 07/03/17 7:50:00 CHAIR INSTALLER, Duration: 30 day, Stop date: 08/02/17 7:49:00 CHAIR INSTALLER Notes: (Same as: KCL) Infuse over 2 hours. Start Date: 07/03/17 Stop Date: 07/07/17 Status: Discontinued potassium chloride 20 mEq, 15 mL, Route: NJ, Drug form: LIQ, PRN, Dosing Weight 91.364, kg, PRN Abn ormal Lab Result, For NON-ICU Patients Only, Start date: 07/03/17 7:50:00 CHAIR INSTALLER, D uration: 30 day, Stop date: 08/02/17 7:49:00 CHAIR INSTALLER Notes: (Same as: Potassium Chloride) Start Date: 07/03/17 Stop Date: 07/07/17 Status: Discontinued potassium phosphate + Sodium Chloride 0.9% IV 250 mL 15 mmol, 5 mL, Route: IVPB, PRN, Dosing Weight 91.364, kg, PRN Abnormal Lab Resu lt, Start date: 06/24/17 18:23:00 CHAIR INSTALLER, Duration: 30 day, Stop date: 07/24/17 18: 22:00 CHAIR INSTALLER, FOR ICU USE ONLY Notes: (Same as: K Phosphate.) 1 mMol phoshate has 1.47 mEq potassium Infuse o laurent 4 hours Start Date: 06/24/17 Stop Date: 07/02/17 Status: Discontinued potassium phosphate + Sodium Chloride 0.9% IV 250 mL 45 mmol, 15 mL, Route: IVPB, PRN, Dosing Weight 91.364, kg, PRN Abnormal Lab Res ult, Start date: 06/24/17 18:23:00 CHAIR INSTALLER, Duration: 30 day, Stop date: 07/24/17 18 :22:00 CHAIR INSTALLER, FOR ICU USE ONLY Notes: (Same as: K Phosphate.) 1 mMol phoshate has 1.47 mEq potassium Infuse o laurent 4 hours Start Date: 06/24/17 Stop Date: 07/02/17 Status: Discontinued potassium phosphate + Sodium Chloride 0.9% IV 250 mL 30 mmol, 10 mL, Route: IVPB, PRN, Dosing Weight 91.364, kg, PRN Abnormal Lab Res ult, Start date: 06/24/17 18:23:00 CHAIR INSTALLER, Duration: 30 day, Stop date: 07/24/17 18 :22:00 CHAIR INSTALLER, FOR ICU USE ONLY Notes: (Same as: K Phosphate.) 1 mMol phoshate has 1.47 mEq potassium Infuse o laurent 4 hours Start Date: 06/24/17 Stop Date: 07/02/17 Status: Discontinued potassium phosphate + Sodium Chloride 0.9% IV 250 mL 15 mmol, 5 mL, Route: IVPB, PRN, Dosing Weight 91.364, kg, PRN Abnormal Lab Resu lt, For NON-ICU Patients Only., Start date: 07/03/17 7:50:00 CHAIR INSTALLER, Duration: 30 d ay, Stop date: 08/02/17 7:49:00 CHAIR INSTALLER Notes: (Same as: K Phosphate.) 1 mMol phoshate has 1.47 mEq potassium Infuse o laurent 4 hours Start Date: 07/03/17 Stop Date: 07/07/17 Status: Discontinued potassium phosphate + Sodium Chloride 0.9% IV 250 mL 30 mmol, 10 mL, Route: IVPB, PRN, Dosing Weight 91.364, kg, PRN Abnormal Lab Res ult, For NON-ICU Patients Only., Start date: 07/03/17 7:50:00 CHAIR INSTALLER, Duration: 30 day, Stop date: 08/02/17 7:49:00 CHAIR INSTALLER Notes: (Same as: K Phosphate.) 1 mMol phoshate has 1.47 mEq potassium Infuse o laurent 4 hours Start Date: 07/03/17 Stop Date: 07/07/17 Status: Discontinued potassium phosphate-sodium phosphate 250 mg-280 mg-160 mg oral powder for recons titution 2 pkt, Route: PO, Drug Form: PDR/REC, Dosing Weight 91.364, kg, PRN, PRN Abnorma l Lab Result, FOR ICU USE ONLY, Start date: 06/24/17 18:23:00 CHAIR INSTALLER, Duration: 30 day, Stop date: 07/24/17 18:22:00 CHAIR INSTALLER Notes: (Same as: Phos-NaK) Each 1.5 gm pkt has 250mg phosphorous. Mix w/2.5oz w ater and stir. Start Date: 06/24/17 Stop Date: 07/02/17 Status: Discontinued potassium phosphate-sodium phosphate 250 mg-280 mg-160 mg oral powder for recons titution 2 pkt, Route: PO, Drug Form: PDR/REC, Dosing Weight 91.364, kg, PRN, PRN Abnorma l Lab Result, For NON-ICU Patients Only, Start date: 07/03/17 7:50:00 CHAIR INSTALLER, Durat ion: 30 day, Stop date: 08/02/17 7:49:00 CHAIR INSTALLER Notes: (Same as: Phos-NaK) Each 1.5 gm pkt has 250mg phosphorous. Mix w/2.5oz w ater and stir. Start Date: 07/03/17 Stop Date: 07/07/17 Status: Discontinued propofol (ANES) Route: IV, Drug form: INJ, ONCE, Stop date: 06/24/17 15:20:00 CHAIR INSTALLER Start Date: 06/24/17 Stop Date: 06/24/17 Status: Completed protamine (ANES) Route: IV, Drug form: INJ, ONCE, Stop date: 06/24/17 18:20:00 CHAIR INSTALLER Start Date: 06/24/17 Stop Date: 06/24/17 Status: Completed Reglan 10 mg, 2 mL, Route: IVP, Drug form: INJ, Q6H-02, Dosing Weight 91.364, kg, Prior ity: NOW, Start date: 06/27/17 8:21:00 CHAIR INSTALLER, Duration: 1 day, Stop date: 06/28/17 8:00:00 CHAIR INSTALLER Notes: (Same as: Reglan) Start Date: 06/27/17 Stop Date: 06/28/17 Status: Completed Reglan 10 mg, 2 mL, Route: IV, Drug form: INJ, Q6Hnow, Dosing Weight 91.364, kg, Priori ty: NOW, Start date: 06/26/17 7:27:00 CHAIR INSTALLER, Duration: 1 day, Stop date: 06/27/17 1:27:00 CHAIR INSTALLER Notes: (Same as: Reglan) Start Date: 06/26/17 Stop Date: 06/27/17 Status: Completed rocuronium (ANES) Route: IV, Drug form: INJ, ONCE, Stop date: 06/24/17 15:15:00 CHAIR INSTALLER Start Date: 06/24/17 Stop Date: 06/24/17 Status: Completed senna 17.2 mg, 2 tab, Route: PO, Drug Form: TAB, Dosing Weight 91.364, kg, Daily, With in 4 hours, Start date: 06/27/17 9:00:00 CHAIR INSTALLER, Stop date: 07/26/17 9:00:00 CHAIR INSTALLER Notes: (Same as: Senokot) Start Date: 06/27/17 Stop Date: 07/07/17 Status: Discontinued simethicone 80 mg, 1 tab, Route: CHEW, Drug form: CHEWTAB, Q6H, Dosing Weight 91.364, kg, Pr iority: NOW, Start date: 06/28/17 12:39:00 CHAIR INSTALLER, Duration: 30 day, Stop date: 12:00:00 CHAIR INSTALLER Notes: (Same as: Mylicon) Start Date: 06/28/17 Stop Date: 07/07/17 Status: Discontinued simvastatin 20 mg oral tablet 20 mg=1 tab, PO, Bedtime, 0 Refill(s) Start Date: 06/23/17 Stop Date: 06/23/17 Status: Discontinued SMOG Enema 300 ml, Route: AK, Drug Form: CARINE, Dosing Weight 91.364, kg, ONCE, NOW, Start d ate: 06/26/17 13:42:00 CHAIR INSTALLER, Stop date: 06/26/17 13:42:00 CHAIR INSTALLER Notes: Non formulary itemsaline for irrigation (1L bottle) 100 mL, mineral oil 1 00 mL, glycerine 100 mL. Dispense (300 ml) in 1L NS bottle Start Date: 06/26/17 Stop Date: 06/26/17 Status: Completed Sodium Chloride 0.9% (Bolus) IV 250 mL, 250 ml/hr, Infuse Over: 1 hr, Route: IV, 250, Drug form: INJ, ONCE, Dosi ng Weight 91.364 kg, Start date: 06/23/17 15:28:00 CHAIR INSTALLER, Stop date: 06/23/17 15:2 8:00 CHAIR INSTALLER Start Date: 06/23/17 Stop Date: 06/23/17 Status: Completed Sodium Chloride 0.9% (Bolus) IV 1,000 mL, 1,000 ml/hr, Infuse Over: 1 hr, Route: IV, 1,000, Drug form: INJ, ONCE , Priority: STAT, Dosing Weight 91.364 kg, Start date: 06/24/17 21:05:00 CHAIR INSTALLER, St op date: 06/24/17 21:05:00 CHAIR INSTALLER Start Date: 06/24/17 Stop Date: 06/24/17 Status: Completed Sodium Chloride 0.9% IV (ANES) 1000 mL Route: IV, Total Volume: 1,000, Start date: 06/24/17 14:41:00 CHAIR INSTALLER, Stop date: 15:41:00 CHAIR INSTALLER Start Date: 06/24/17 Stop Date: 06/24/17 Status: Completed Sodium Chloride 0.9% IV 500 mL 500 mL, Rate: 20 ml/hr, Infuse over: 25 hr, Route: IV, Dosing Weight 91.364 kg, Total Volume: 500, Start date: 06/23/17 15:28:00 CHAIR INSTALLER, Duration: 24 hr, Stop date : 06/24/17 15:27:00 CHAIR INSTALLER, 2.1, m2 Start Date: 06/23/17 Stop Date: 06/24/17 Status: Completed sodium phosphate + Sodium Chloride 0.9% IV 250 mL 15 mmol, 5 mL, Route: IVPB, PRN, Dosing Weight 91.364, kg, PRN Abnormal Lab Resu lt, Start date: 06/24/17 18:23:00 CHAIR INSTALLER, Duration: 30 day, Stop date: 07/24/17 18: 22:00 CHAIR INSTALLER, FOR ICU USE ONLY Start Date: 06/24/17 Stop Date: 07/02/17 Status: Discontinued sodium phosphate + Sodium Chloride 0.9% IV 250 mL 45 mmol, 15 mL, Route: IVPB, PRN, Dosing Weight 91.364, kg, PRN Abnormal Lab Res ult, Start date: 06/24/17 18:23:00 CHAIR INSTALLER, Duration: 30 day, Stop date: 07/24/17 18 :22:00 CHAIR INSTALLER, FOR ICU USE ONLY Start Date: 06/24/17 Stop Date: 07/02/17 Status: Discontinued sodium phosphate + Sodium Chloride 0.9% IV 250 mL 30 mmol, 10 mL, Route: IVPB, PRN, Dosing Weight 91.364, kg, PRN Abnormal Lab Res ult, Start date: 06/24/17 18:23:00 CHAIR INSTALLER, Duration: 30 day, Stop date: 07/24/17 18 :22:00 CHAIR INSTALLER, FOR ICU USE ONLY Start Date: 06/24/17 Stop Date: 07/02/17 Status: Discontinued sodium phosphate + Sodium Chloride 0.9% IV 250 mL 30 mmol, 10 mL, Route: IVPB, PRN, Dosing Weight 91.364, kg, PRN Abnormal Lab Res ult, For NON-ICU Patients Only., Start date: 07/03/17 7:50:00 CHAIR INSTALLER, Duration: 30 day, Stop date: 08/02/17 7:49:00 CHAIR INSTALLER Start Date: 07/03/17 Stop Date: 07/07/17 Status: Discontinued sodium phosphate + Sodium Chloride 0.9% IV 250 mL 15 mmol, 5 mL, Route: IVPB, PRN, Dosing Weight 91.364, kg, PRN Abnormal Lab Resu lt, For NON-ICU Patients Only., Start date: 07/03/17 7:50:00 CHAIR INSTALLER, Duration: 30 d ay, Stop date: 08/02/17 7:49:00 CHAIR INSTALLER Start Date: 07/03/17 Stop Date: 07/07/17 Status: Discontinued tramadol 25 mg, 0.5 tab, Route: PO, Drug form: TAB, Q6H, Dosing Weight 91.364, kg, PRN Pa in Score 6-10, Start date: 06/28/17 18:43:00 CHAIR INSTALLER, Duration: 30 day, Stop date: 0 07/28/17 18:42:00 CHAIR INSTALLER Notes: 25 mg=1/2 x 50 mg TABNot to exceed 400mg/day. (Same As: Ultram) Start Date: 06/28/17 Stop Date: 06/29/17 Status: Discontinued tramadol 50 mg oral tablet 50 mg, 1 tab, Route: PO, Drug form: TAB, Q8H, Dosing Weight 91.364, kg, PRN Pain Score 6-10, Start date: 06/30/17 14:59:00 CHAIR INSTALLER, Duration: 3 day, Stop date: 06/19 14:58:00 CHAIR INSTALLER Notes: Not to exceed 400mg/day. (Same As: Ultram) Start Date: 06/30/17 Stop Date: 07/03/17 Status: Completed tramadol 50 mg oral tablet 50 mg, 1 tab, Route: PO, Drug form: TAB, ONCE, Dosing Weight 91.364, kg, PRN Ruben n Score 1-3, Start date: 07/06/17 3:09:00 CHAIR INSTALLER Notes: Not to exceed 400mg/day. (Same As: Ultram) Start Date: 07/06/17 Stop Date: 07/06/17 Status: Completed tramadol 50 mg oral tablet 50 mg, 1 tab, Route: PO, Drug form: TAB, ONCE, Dosing Weight 91.364, kg, Priorit y: NOW, Start date: 06/30/17 3:37:00 CHAIR INSTALLER, Stop date: 06/30/17 3:37:00 CHAIR INSTALLER Notes: Not to exceed 400mg/day. (Same As: Ultram) Start Date: 06/30/17 Stop Date: 06/30/17 Status: Completed Tylenol 650 mg, 2 tab, Route: PO, Drug form: TAB, Q6H, Dosing Weight 91.364, kg, PRN Ruben n 1-3/Temp > 100.4 F, Start date: 06/28/17 12:39:00 CHAIR INSTALLER, Duration: 30 day, Stop date: 07/28/17 12:38:00 CHAIR INSTALLER Notes: Do not exceed 4 gm/day. (Same as: Tylenol) Start Date: 06/28/17 Stop Date: 06/28/17 Status: Discontinued Tylenol 1,000 mg, 2 tab, Route: PO, Drug form: TAB, Q6Hnow, Dosing Weight 91.364, kg, Pr iority: NOW, Start date: 06/28/17 18:43:00 CHAIR INSTALLER, Duration: 30 day, Stop date: 13:00:00 CHAIR INSTALLER Notes: Max acetaminophen 4000 mg/day (4 gm/day). (Same as: Tylenol Extra Streng th) Start Date: 06/28/17 Stop Date: 07/03/17 Status: Discontinued vancomycin 1,000 mg, Route: IVPB, Drug form: INJ, Q12H, Dosing Weight 91.364, kg, Time Crit ical Medication, Start date: 07/05/17 21:00:00 CHAIR INSTALLER, Duration: 2 day, Stop date: 07/07/17 9:00:00 CHAIR INSTALLER, ABX Indication: Surgical Prophylaxis Notes: TIME CRITICAL MEDICATION(Same As: Vancocin)Infusion rate< 1000 mg: infuse over 1 [id number] - 1500 mg: infuse over 1.5 [id number] - 2000 mg: infuse over 2 hours> 2001 mg: infuse over 2.5 hoursFor adult patients only: Round to nearest 250 mg per Medical Staff approval MEDICATION WASTE Product Size: 1000 mgProduct Wasted: ___ mg Start Date: 07/05/17 Stop Date: 07/07/17 Status: Discontinued vancomycin (ANES) 1000 mg Route: IV, Drug form: INJ, Start date: 06/24/17 14:25:00 CHAIR INSTALLER, Stop date: 8 15:25:00 CHAIR INSTALLER Start Date: 06/24/17 Stop Date: 06/24/17 Status: Completed vancomycin (SCIP) 1,250 mg, 250 mL, Route: IVPB, Drug form: INJ, [id number], Dosing Weight 91.364, kg , Time Critical Medication, Start date: 06/25/17 3:00:00 CHAIR INSTALLER, Duration: 2 doses or times, Stop date: 06/25/17 15:00:00 CHAIR INSTALLER, ABX Indication: Surgical Prophylaxis Notes: TIME CRITICAL MEDICATIONSame as: Vancocin-NS (premixed)Infusion rate< 1000 mg: infuse over 1 [id number] - 1500 mg: infuse over 1.5 [id number] - 2000 mg: infuse over 2 hours> 2001 mg: infuse over 2.5 hours Start Date: 06/25/17 Stop Date: 06/25/17 Status: Completed Zofran 4 mg, 2 mL, Route: IV, Drug form: INJ, Q8H, Dosing Weight 91.364, kg, PRN Nausea , Start date: 06/25/17 17:53:00 CHAIR INSTALLER, Duration: 30 day, Stop date: 07/25/17 17:52 :00 CHAIR INSTALLER Notes: (Same as: Zofran) MEDICATION WASTE Product Size: 4 mgProduct Was romain: _0__ mg Start Date: 06/25/17 Stop Date: 07/07/17 Status: Discontinued Results BLOOD BANK RESULTS 1 2 3 Most recent to oldest [Reference Range]: O POS *Unknown* (07/01/17 1:21 AM) O POS *Unknown* (06/27/17 12:57 AM) O POS *Unknown* (06/23/17 9:08 AM) ABO/Rh Negative (07/01/17 1:21 AM) Negative (06/27/17 12:57 AM) Negative (06/23/17 9:08 AM) Antibody Scrn ELECTROLYTES 1 2 3 Most recent to oldest [Reference Range]: 138 mEq/L (07/07/17 12:15 AM) 138 mEq/L (07/03/17 3:16 AM) 136 mEq/L (07/02/17 2:45 AM) Sodium Lvl [135-145 mEq/L] 3.7 mEq/L (07/07/17 12:15 AM) 4.2 mEq/L (07/03/17 3:16 AM) 3.9 mEq/L (07/02/17 2:45 AM) Potassium Lvl [3.5-5.1 mEq/L] 102 mEq/L (07/07/17 12:15 AM) 102 mEq/L (07/03/17 3:16 AM) 100 mEq/L (07/02/17 2:45 AM) Chloride Lvl [95-109 mEq/L] 27 mEq/L (07/07/17 12:15 AM) 26 mEq/L (07/03/17 3:16 AM) 29 mEq/L (07/02/17 2:45 AM) CO2 [24-32 mEq/L] 12.7 mEq/L (07/07/17 12:15 AM) 14.2 mEq/L (07/03/17 3:16 AM) 10.9 mEq/L (07/02/17 2:45 AM) AGAP [10.0-20.0 mEq/L] CHEM PANEL 1 2 3 Most recent to oldest [Reference Range]: 0.87 mg/dL (07/07/17 12:15 AM) 0.63 mg/dL (07/03/17 3:16 AM) 0.73 mg/dL (07/02/17 2:45 AM) Creatinine Lvl [0.50-1.40 mg/dL] 86 mL/min/1.73m2 1 *NA* (07/07/17 12:15 AM) 98 mL/min/1.73m2 2 *NA* (07/03/17 3:16 AM) 93 mL/min/1.73m2 3 *NA* (07/02/17 2:45 AM) eGFR 19 mg/dL (07/07/17 12:15 AM) 13 mg/dL (07/03/17 3:16 AM) 17 mg/dL (07/02/17 2:45 AM) BUN [7-22 mg/dL] 20 (06/24/17 12:48 AM) B/C Ratio [6-25] 102 mg/dL *HI* (07/07/17 12:15 AM) 140 mg/dL *HI* (07/03/17 3:16 AM) 148 mg/dL *HI* (07/02/17 2:45 AM) Glucose Lvl [70-99 mg/dL] 7.5 g/dL (06/24/17 12:48 AM) Total Protein [6.4-8.4 g/dL] 3.6 g/dL (06/24/17 12:48 AM) Albumin Lvl [3.5-5.0 g/dL] 3.9 g/dL (06/24/17 12:48 AM) Globulin [2.7-4.2 g/dL] 0.9 (06/24/17 12:48 AM) A/G Ratio [0.7-1.6] 9.2 mg/dL (07/07/17 12:15 AM) 8.9 mg/dL (07/03/17 3:16 AM) 9.6 mg/dL (07/02/17 2:45 AM) Calcium Lvl [8.5-10.5 mg/dL] 3.4 mg/dL (07/03/17 3:16 AM) 3.8 mg/dL (07/02/17 2:45 AM) 4.7 mg/dL *HI* (07/01/17 1:21 AM) Phosphorus [2.5-4.5 mg/dL] 2.3 mg/dL (07/07/17 12:15 AM) 2.2 mg/dL (07/03/17 3:16 AM) 2.2 mg/dL (07/02/17 2:45 AM) Magnesium Lvl [1.8-2.4 mg/dL] 55 unit/L (06/24/17 12:48 AM) ALT [0-65 unit/L] 27 unit/L (06/24/17 12:48 AM) AST [0-37 unit/L] 53 unit/L (06/24/17 12:48 AM) Alk Phos [39-136 unit/L] 1.1 mg/dL (06/24/17 12:48 AM) Bili Total [0.2-1.3 mg/dL] 1Result Comment: The eGFR is calculated [...] be mul tiplied by the estimated BMI. SPECIAL CHEMISTRY 1 2 3 Most recent to oldest [Reference Range]: 8.7 % *HI* (06/24/17 12:48 AM) Hgb A1C [<=5.6 %] PARATHYROID PROFILE 1 2 3 Most recent to oldest [Reference Range]: 1.14 mMol/L (07/03/17 3:16 AM) 1.26 mMol/L *HI* (07/02/17 2:45 AM) 1.15 mMol/L (07/01/17 1:21 AM) Ca Ion WB [1.05-1.25 mMol/L] 1.18 mMol/L (07/03/17 3:16 AM) 1.25 mMol/L (07/02/17 2:45 AM) 1.17 mMol/L (07/01/17 1:21 AM) Ca Norm WB [1.05-1.25 mMol/L] HEMATOLOGY 1 2 3 Most recent to oldest [Reference Range]: 9.4 K/CMM (07/07/17 12:15 AM) 9.1 K/CMM (07/03/17 3:16 AM) 10.2 K/CMM (07/02/17 2:45 AM) WBC [3.7-10.4 K/CMM] 3.51 M/CMM *LOW* (07/07/17 12:15 AM) 3.62 M/CMM *LOW* (07/03/17 3:16 AM) 3.74 M/CMM *LOW* (07/02/17 2:45 AM) RBC [4.70-6.10 M/CMM] 10.1 g/dL *LOW* (07/07/17 12:15 AM) 10.5 g/dL *LOW* (07/03/17 3:16 AM) 10.6 g/dL *LOW* (07/02/17 2:45 AM) Hgb [14.0-18.0 g/dL] 29.6 % *LOW* (07/07/17 12:15 AM) 30.5 % *LOW* (07/03/17 3:16 AM) 31.0 % *LOW* (07/02/17 2:45 AM) Hct [42.0-54.0 %] 84.3 fL (07/07/17 12:15 AM) 84.2 fL (07/03/17 3:16 AM) 82.9 fL (07/02/17 2:45 AM) MCV [80.0-94.0 fL] 28.8 pg (07/07/17 12:15 AM) 28.9 pg (07/03/17 3:16 AM) 28.3 pg (07/02/17 2:45 AM) MCH [27.0-31.0 pg] 34.2 g/dL (07/07/17 12:15 AM) 34.4 g/dL (07/03/17 3:16 AM) 34.2 g/dL (07/02/17 2:45 AM) MCHC [32.0-36.0 g/dL] 17.6 % *HI* (07/07/17 12:15 AM) 16.1 % *HI* (07/03/17 3:16 AM) 16.4 % *HI* (07/02/17 2:45 AM) RDW [11.5-14.5 %] 8.2 fL (07/07/17 12:15 AM) 8.6 fL (07/03/17 3:16 AM) 8.8 fL (07/02/17 2:45 AM) MPV [7.4-10.4 fL] 235 K/CMM (07/07/17 12:15 AM) 176 K/CMM (07/03/17 3:16 AM) 156 K/CMM (07/02/17 2:45 AM) Platelet [133-450 K/CMM] 74.9 % (07/07/17 12:15 AM) 73.2 % (07/03/17 3:16 AM) 70.5 % (07/02/17 2:45 AM) Segs [45.0-75.0 %] 13.3 % *LOW* (07/07/17 12:15 AM) 13.5 % *LOW* (07/03/17 3:16 AM) 14.8 % *LOW* (07/02/17 2:45 AM) Lymphocytes [20.0-40.0 %] 8.4 % (07/07/17 12:15 AM) 8.8 % (07/03/17 3:16 AM) 10.4 % (07/02/17 2:45 AM) Monocytes [2.0-12.0 %] 2.9 % (07/07/17 12:15 AM) 3.8 % (07/03/17 3:16 AM) 3.7 % (07/02/17 2:45 AM) Eosinophils [0.0-4.0 %] 0.5 % (07/07/17 12:15 AM) 0.7 % (07/03/17 3:16 AM) 0.6 % (07/02/17 2:45 AM) Basophils [0.0-1.0 %] 7.1 K/CMM (07/07/17 12:15 AM) 6.6 K/CMM (07/03/17 3:16 AM) 7.2 K/CMM (07/02/17 2:45 AM) Segs-Bands # [1.5-8.1 K/CMM] 1.3 K/CMM (07/07/17 12:15 AM) 1.2 K/CMM (07/03/17 3:16 AM) 1.5 K/CMM (07/02/17 2:45 AM) Lymphocytes # [1.0-5.5 K/CMM] 0.8 K/CMM (07/07/17 12:15 AM) 0.8 K/CMM (07/03/17 3:16 AM) 1.1 K/CMM *HI* (07/02/17 2:45 AM) Monocytes # [0.0-0.8 K/CMM] 0.3 K/CMM (07/07/17 12:15 AM) 0.3 K/CMM (07/03/17 3:16 AM) 0.4 K/CMM (07/02/17 2:45 AM) Eosinophils # [0.0-0.5 K/CMM] 0.1 K/CMM (07/03/17 3:16 AM) 0.1 K/CMM (07/02/17 2:45 AM) 0.1 K/CMM (07/01/17 1:21 AM) Basophils # [0.0-0.2 K/CMM] 35 mm/hr *HI* (06/26/17 3:15 PM) Sed Rate [0-15 mm/hr] 12.8 seconds (07/03/17 3:16 AM) 13.8 seconds (07/02/17 2:45 AM) 13.2 seconds (07/01/17 1:21 AM) PT [12.0-14.7 seconds] 0.96 (07/03/17 3:16 AM) 1.06 (07/02/17 2:45 AM) 1.00 (07/01/17 1:21 AM) INR [0.85-1.17] 0.46 ug/mL FEU *NA* (06/26/17 3:15 PM) D-Dimer 31.7 seconds (07/03/17 3:16 AM) 35.7 seconds (07/02/17 2:45 AM) 34.6 seconds (07/01/17 1:21 AM) PTT [22.9-35.8 seconds] Immunizations Given and Recorded [...] 10/04/17 Assessment and Plan Extracted from: Title: EP Consult Author: Paco Chavez Date: 07/01/17 Hoang GARCIA Patient: JAQUI GRANDE Age: 72 years Sex: Male : 1945 Associated Diagnoses: None Author: Paco Chavez MD Basic Information Reason for consult: Second degree AV block History of Present Illness This is a 72-year-old man with medical histroy of severe aortic stenosis s/p mini-AVR 06/24/[address] #[address] [place] Trifecta Tissue valve, DM2, hypertension, and an arrhythmia s/p ablation ~10 years ago at [facility] who has bad some bradycardic episodes with [place] seen on his telemetry and ECG. He states that he feels light-headed and has palpitations at times, but he just had heart surgery. No syncopal episodes. He has been on coreg 6.25 mg PO BID up until 06/29 and this was stopped on 06/30 because of his bradycardic episodes. Potassium has been within normal limits or slightly low. Home medications include aspirin 81, Toprol XL 25 QD, losartan, HCTZ, amlodipine, Review of Systems Constitutional: No fever, No chills. Eye: No blurring, No double vision. Ear/Nose/Mouth/Throat: No nasal congestion, No sore throat. Respiratory: No shortness of breath, No cough. Cardiovascular: Chest pain, Palpitations. Gastrointestinal: No nausea, No vomiting. Genitourinary: No dysuria, No hematuria. Hematology/Lymphatics: No bruising tendency, No bleeding tendency. Endocrine: No excessive thirst, No polyuria. Immunologic: Not immunocompromised, No recurrent fevers. Musculoskeletal: No back pain, No neck pain. Integumentary: No rash, No pruritus. Neurologic: Alert and oriented X4, No abnormal balance. Psychiatric: No anxiety, No depression. Health Status Allergies: Allergic Reactions (All) Severity Not Documented NKDA- No reactions were documented., Allergies (1) ActiveReaction NKDANone Documented Current medications: (Selected) Inpatient Medications Ordered Dextrose 50% Syringe: 12.5 gm, 25 mL, IVP, PRN, PRN: Blood Glucose Results Dextrose 50% Syringe: 25 gm, 50 mL, IVP, PRN, PRN: Blood Glucose Results DuoNeb inhalation solution: 3 ml, NEB, RQ6H Exparel: 20 mL, InFILtration(local), ONCALL Imdur: 30 mg, 1 tab, PO, Q12H Lasix 20 mg oral tablet: 40 mg, PO, Daily Tylenol: 1,000 mg, 2 tab, PO, Q6Hnow Zofran: 4 mg, 2 mL, IV, Q8H, PRN: Nausea aspirin: 81 mg, 1 tab, PO, Daily atorvastatin: 80 mg, 1 tab, PO, Bedtime bisacodyl: 10 mg, 1 supp, AK, Daily, PRN: Constipation budesonide 0.5 mg/2 mL inhalation suspension: 0.5 mg, 2 mL, NEB, RBID calcium carbonate 500 mg (200 mg elemental calcium) oral tablet: 1,000 mg, 2 tab, PO, PRN, PRN: Abnormal Lab Result calcium carbonate 500 mg (200 mg elemental calcium) oral tablet: 500 mg, 1 tab, PO, PRN, PRN: Abnormal Lab Result calcium gluconate + Sodium Chloride 0.9% IV 50 mL: 1 gm, 10 mL, 120 ml/hr, IVPB, PRN, PRN: Abnormal Lab Result clopidogrel: 75 mg, 1 tab, PO, Daily docusate: 100 mg, 1 cap, PO, BID enalapril: 0.625 mg, 0.5 mL, IVP, Q6H, PRN: Hypertension glucagon: 1 mg, IM, PRN, PRN: Blood Glucose Results heparin: 5,000 unit, 1 mL, SUB-Q, Q12H hydrALAZINE: 10 mg, 0.5 mL, IVP, Q4H, PRN: Other -See Comment hydrALAZINE: 50 mg, 1 tab, PO, Q6H hydrochlorothiazide 25 mg oral tablet: 25 mg, 1 tab, PO, Daily insulin detemir: 12 unit, 0.12 mL, 0 ml/hr, SUB-Q, Daily insulin lispro: 10 unit, 0.1 mL, SUB-Q, TID-Before Meals, PRN: Blood Glucose Results insulin lispro: 2 unit, 0.02 mL, SUB-Q, TID-Before Meals, PRN: Blood Glucose Results insulin lispro: 4 unit, 0.04 mL, SUB-Q, TID-Before Meals, PRN: Blood Glucose Results insulin lispro: 6 unit, 0.06 mL, SUB-Q, TID-Before Meals, PRN: Blood Glucose Results insulin lispro: 8 unit, 0.08 mL, SUB-Q, TID-Before Meals, PRN: Blood Glucose Results losartan: 100 mg, 2 tab, PO, Daily magnesium oxide: 800 mg, 2 tab, PO, PRN, PRN: Abnormal Lab Result magnesium sulfate: 2 gm, 50 mL, 25 ml/hr, IVPB, PRN, PRN: Abnormal Lab Result melatonin 3 mg oral tablet: 3 mg, 1 tab, PO, Bedtime nitroglycerin: 0.4 mg, 1 tab, SL, Q5Min, PRN: Chest Pain phenol topical 1.4% spray: 1 spray, TOP, QID potassium chloride: 10 mEq, 50 mL, 50 ml/hr, IVPB, PRN, PRN: Abnormal Lab Result potassium chloride: 20 mEq, 1 tab, PO, PRN, PRN: Abnormal Lab Result potassium chloride: 20 mEq, 100 mL, 50 ml/hr, IVPB, PRN, PRN: Abnormal Lab Result potassium chloride: 20 mEq, 15 mL, NJ, PRN, PRN: Abnormal Lab Result potassium phosphate + Sodium Chloride 0.9% IV 250 mL: 15 mmol, 5 mL, 63.75 ml/hr, IVPB, PRN, PRN: Abnormal Lab Result potassium phosphate + Sodium Chloride 0.9% IV 250 mL: 30 mmol, 10 mL, 65 ml/hr, IVPB, PRN, PRN: Abnormal Lab Result potassium phosphate + Sodium Chloride 0.9% IV 250 mL: 45 mmol, 15 mL, 66.25 ml/hr, IVPB, PRN, PRN: Abnormal Lab Result potassium phosphate-sodium phosphate 250 mg-280 mg-160 mg oral powder for reconstitution: 2 pkt, PO, PRN, PRN: Abnormal Lab Result senna: 17.2 mg, 2 tab, PO, Daily simethicone: 80 mg, 1 tab, CHEW, Q6H sodium phosphate + Sodium Chloride 0.9% IV 250 mL: 15 mmol, 5 mL, 63.75 ml/hr, IVPB, PRN, PRN: Abnormal Lab Result sodium phosphate + Sodium Chloride 0.9% IV 250 mL: 30 mmol, 10 mL, 65 ml/hr, IVPB, PRN, PRN: Abnormal Lab Result sodium phosphate + Sodium Chloride 0.9% IV 250 mL: 45 mmol, 15 mL, 66.25 ml/hr, IVPB, PRN, PRN: Abnormal Lab Result tramadol 50 mg oral tablet: 50 mg, 1 tab, PO, Q8H, PRN: Pain Score 6-10 Pending Complete pneumococcal 13-valent vaccine: 0.5 mL, IM, Daily Suspended Core.25 mg, 1 tab, PO, Q12H Documented Medications Documented Aspirin Low Dose 81 mg oral tablet: 0 Refill(s) amLODIPine 10 mg oral tablet: 10 mg, 1 tab, PO, Daily, 0 Refill(s) Suspended hydrALAZINE 25 mg oral tablet: 25 mg, 1 tab, PO, TID, 0 Refill(s) hydrochlorothiazide-losartan 25 mg-100 mg oral tablet: 1 tab, PO, Daily, 0 Refill(s) metFORMIN 500 mg oral tablet: 500 mg, 1 tab, PO, Daily, 0 Refill(s) metoprolol 25 mg oral tablet, extended release: 25 mg, 1 tab, PO, Daily, 0 Refill(s), Medications (49) Active Scheduled: (19) acetaminophen 500 mg TAB 1,000 mg 2 tab, PO, Q6Hnow albuterol-ipratropium 2.5 mg-0.5 mg/3 ml CHARIS 3 ml, NEB, RQ6H aspirin 81 mg ECT 81 mg 1 tab, PO, Daily atorvastatin 80mg tab 80 mg 1 tab, PO, Bedtime budesonide 0.5 mg/2ml neb SUSP 0.5 mg 2 mL, NEB, RBID bupivacaine liposome 1.3% 20 mL INJ VL PF 20 mL, InFILtration(local), ONCALL clopidogrel 75 mg TAB 75 mg 1 tab, PO, Daily docusate sodium 100 mg CAP 100 mg 1 cap, PO, BID furosemide 40 mg, PO, Daily heparin 5000 unit/1 ml INJ VL 5,000 unit 1 mL, SUB-Q, Q12H hydrALAZINE 50 mg TAB 50 mg 1 tab, PO, Q6H hydrochlorothiazide 25 mg TAB 25 mg 1 tab, PO, Daily insulin DETEMIR 1 unit/0.01 mL INJ SYR 12 unit 0.12 mL, SUB-Q, Daily isosorbide mononitrate 30 mg ERT 30 mg 1 tab, PO, Q12H losartan 50 mg TAB 100 mg 2 tab, PO, Daily melatonin 3 mg TAB 3 mg 1 tab, PO, Bedtime phenol-sodium phenolate 1.4% throat SPR 180 ml 1 spray, TOP, QID senna 8.6 mg TAB 17.2 mg 2 tab, PO, Daily simethicone 80 mg CHEW 80 mg 1 tab, CHEW, Q6H Continuous: (0) PRN: (30) bisacodyl 10 mg rect SUPP 10 mg 1 supp, AK, Daily calcium carbonate 500 mg (200 mg elemental) CHEW 500 mg 1 tab, PO, PRN calcium carbonate 500 mg (200 mg elemental) CHEW 1,000 mg 2 tab, PO, PRN calcium gluconate 100mg/ml 10ml VL + sodium chloride 0.9% INJ 50 mL 1 gm 10 mL, IVPB, PRN Dextrose 50% 50 ml INJ syringe 12.5 gm 25 mL, IVP, PRN Dextrose 50% 50 ml INJ syringe 25 gm 50 mL, IVP, PRN enalaprilat 1.25 mg/1 ml VL 0.625 mg 0.5 mL, IVP, Q6H glucagon recombinant 1 mg PDR 1 mg, IM, PRN hydrALAZINE 20 mg/1 ml VL 10 mg 0.5 mL, IVP, Q4H insulin lispro 100 unit/ml 3 ml Vial 2 unit 0.02 mL, SUB-Q, TID-Before Meals insulin lispro 100 unit/ml 3 ml Vial 4 unit 0.04 mL, SUB-Q, TID-Before Meals insulin lispro 100 unit/ml 3 ml Vial 6 unit 0.06 mL, SUB-Q, TID-Before Meals insulin lispro 100 unit/ml 3 ml Vial 8 unit 0.08 mL, SUB-Q, TID-Before Meals insulin lispro 100 unit/ml 3 ml Vial 10 unit 0.1 mL, SUB-Q, TID-Before Meals magnesium oxide (242 mg elemental) tab 800 mg 2 tab, PO, PRN magnesium sulfate 2 gm/H20 50ml soln 2 gm 50 mL, IVPB, PRN nitroglycerin 0.4 mg TAB 25's btl 0.4 mg 1 tab, SL, Q5Min ondansetron 4 mg/2ml INJ VL 4 mg 2 mL, IV, Q8H potassium chloride 10mEq/ NS 50mL Premix 10 mEq 50 mL, IVPB, PRN potassium chloride 20 mEq ERT 20 mEq 1 tab, PO, PRN potassium chloride 20 mEq/ NS 100 mL Premix 20 mEq 100 mL, IVPB, PRN potassium chloride 20mEq/15ml LIQ ud 20 mEq 15 mL, NJ, PRN potassium phosphate 3mmol/1ml 15ml VL + sodium chloride 0.9% INJ 250 mL 15 mmol 5 mL, IVPB, PRN potassium phosphate 3mmol/1ml 15ml VL + sodium chloride 0.9% INJ 250 mL 30 mmol 10 mL, IVPB, PRN potassium phosphate 3mmol/1ml 15ml VL + sodium chloride 0.9% INJ 250 mL 45 mmol 15 mL, IVPB, PRN potassium phosphate-sodium phosphate 1.5 gm pkt 2 pkt, PO, PRN sodium phosphate 3 mmol/1 ml 15 ml vial + sodium chloride 0.9% INJ 250 mL 15 mmol 5 mL, IVPB, PRN sodium phosphate 3 mmol/1 ml 15 ml vial + sodium chloride 0.9% INJ 250 mL 30 mmol 10 mL, IVPB, PRN sodium phosphate 3 mmol/1 ml 15 ml vial + sodium chloride 0.9% INJ 250 mL 45 mmol 15 mL, IVPB, PRN traMADol 50 mg TAB 50 mg 1 tab, PO, Q8H Histories Past Medical History: Resolved Coronary artery disease (84154726): Resolved. Diabetes (586010039): Resolved. Hypertension (4085739955): Resolved. Aortic valve disease (13511181): Resolved. Family History: No family history items have been selected or recorded. Procedure history: Cholecystectomy (SNOMED CT 95525784). Tonsillectomy (SNOMED CT 521108750). Social History Social & Psychosocial Habits Tobacco 06/25/2017 Use: Never smoker Ready to change: No Concerns about tobacco use in household: No Exposure to Tobacco Smoke None Cigarette Smoking Last 365 Days No Reg Smoking Cessation Counseling No . Physical Examination VS/Measurements Vital Signs (last 24 hrs) Last Charted Temp AxillaryH 98.4DegF (JUL 01 04:00) Heart Rate Qgcwkq80 bpm (JUL 01 11:00) Resp Rate H 31BRMIN (JUL 01 08:30) TIT160 mmHg (JUL 01 11:00) DBP71 mmHg (JUL 01 11:00) CpR730 % (DELL 30 11:00) General: Alert and oriented, No acute distress. Eye: Pupils are equal, round and reactive to light, Extraocular movements are intact. HENT: Normocephalic, Tympanic membranes are clear. Neck: Supple, Non-tender, No jugular venous distention. Respiratory: Lungs are clear to auscultation, Breath sounds are equal. Cardiovascular: Normal rate, Regular rhythm, holosystolic murmur 1/6. Gastrointestinal: Soft, Non-tender, Non-distended. Musculoskeletal Normal range of motion. Normal strength. Integumentary: Warm, Dry, Intact. Review / Management Results review: Labs (Last four charted values) WBC 8.1(JUL 01)6.8(JUN 30)7.0(JUN 29)9.1(JUN 28) Hgb L 10.5(JUL 01)L 10.9(JUN 30)L 10.6(JUN 29)L 10.3(JUN 28) Hct L 30.5(JUL 01)L 32.0(JUN 30)L 31.0(JUN 29)L 30.5(JUN 28) Plt L 127(JUL 01)L 127(JUN 30)L 108(JUN 29)L 91(JUN 28) Na 138(JUL 01)144(JUN 30)137(JUN 29)137(JUN 28) K 3.8(JUL 01)4.1(JUN 30)L 3.3(JUN 30)3.6(JUN 29) CO2 28(JUL 01)27(JUN 30)32(JUN 29)27(JUN 28) Cl 101(JUL 01)108(JUN 30)97(JUN 29)101(JUN 28) Cr 0.73(JUL 01)0.65(JUN 30)0.69(JUN 29)0.58(JUN 28) BUN 16(JUL 01)13(JUN 30)20(JUN 29)H 26(JUN 28) Glucose Random H 168(JUL 01)H 126(JUN 30)H 139(JUN 29)H 111(JUN 28) Mg 2.2(JUL 01)2.2(JUN 30)2.0(JUN 30)2.2(JUN 29) Phos H 4.7(JUL 01)3.0(JUN 30)3.2(JUN 29)L 2.3(JUN 28) Ca 9.3(JUL 01)L 8.2(JUN 30)9.0(JUN 29)8.8(JUN 28) PT 13.2(JUL 01)13.5(JUN 30)13.8(JUN 29)14.2(JUN 28) INR 1.00(JUL 01)1.03(JUN 30)1.06(JUN 29)1.10(JUN 28) PTT 34.6(JUL 01)35.4(JUN 30)H 38.5(JUN 29)H 37.6(JUN 28). TTE Patient: JAQUI GRANDE [facility] Rec#: [id number] : 1945 Date: 06/26/2017 Age: 72y Height: 170 cm / 66.9 in Weight: 91.4 kg / 201.4 lbs Gender: M BSA: 2.03 Room#: [facility] Admit Date#: 06/23/2017 Type: Inpatient Loc: Portable Reading: Harleen Harper MD Special Library Librarian: Matias Urias Mat Cleaning Machine Operator: Elizabeth Aguila Referring: DOTTIE RODRIGUEZ Transthoracic Echocardiogram Report Diagnosis: *ICD-10-PCS Cerebral infarction, unspecified (I63.9) Studies Performed: *Color Flow Doppler (66615) *Echo Bubble Study (62019) *Echo 2 D M-Mode Full (23252) *Spectral Doppler Complete (66934) *TTE W/Doppler, Complete (08899) Indication: Stroke / TIA Rhythm: NSR Rhythm: NSR BP: 106/61 HR: 69 Conclusions 1) This study is s/p AVR. 2) Left ventricle is normal in size and function. Estimated LVEF is 60-65%. 3) Right ventricle is normal in size and systolic function. 4) Both atria are normal in size. 5) Negative bubble study is compatible with no significant interatrial shunting, at rest or during Valsalva maneuver. 6) A bio-prosthetic valve is well seated in aortic position with normal function. EOA=1.9 cm2, mean gradient=14 mmHg, peak velocity=2.5 m/s. No evidence of aortic regurgitation. 7) Estimated systolic pulmonary artery pressure is 20 mmHg, assuming right atrial pressure of 5 mmHg. 8) No pericardial effusion is seen. 9) No prior study is available for comparison. Telemetry: 2:1 block, features suggestive of both Mobitz I and Mobitz II. Impression and Plan This is a 72-year-old man with medical histroy of severe aortic stenosis s/p mini-AVR 06/24/[address] #[address] Tissue valve, DM2, hypertension, and an arrhythmia s/p ablation ~10 years ago at [facility] who has bad some bradycardic episodes with bradycardia seen on his telemetry and ECG. Second degree heart block - Features of both Mobitz type I and Mobitz type II heart block - Continue to hold beta blockers - Will reassess telemetry in AM, if no further episodes, then can go home with outpatient follow up with EP - If this recurs, then he may need PPM Paco Chavez MD Cardiovascular Disease Fellow, PGY-5 Addendum I have seen and examined the patient with Dr. Chavez on 07-01-17. I have reviewed by Wil all clinical information. I agree with above note, assessment, and plan. Tiara GARCIA on 07/04/2017 16:10 Extracted from: Title: [facility] Brief Fellow Note Author: Susana Lacy MD Date: 06/24/17 [facility] Brief Fellow Note I have seen/examined and discussed A/P for Mr. Grande with MARCUS Jos Krueger. Please see his H&P for full details. In bried, Mr. Grande is a 72 year old man with PMH of HTN, severe aortic stenosis, DMII who underwent a mini AVR with a bioprosthetic valve. Patient tolerated procedure well and plan for fast track. A/P: Severe aortic stenosis s/p mini AVR Post op critical care Post op mechanical ventilation Chest tube management Hx of HTN DMII Post op leukocytosis Acute blood loss anemia -Currently patient very sedating, weaning precedex and as patient is more alert, will plan for SBT -CXR reviewed, will pull back ETT by a cm -CT management per [facility] -Add antihypertensives as needed -SSI for DM -SCIP abx today
--- OUTSIDE RECORDS SUMMARY | 2018-05-05 18:49 | XMS REPORT | Summary of Care ---
Author Author AMI CARLIN Unknown Address Unknown Phone Unavailable Care Team Providers Care Branch Assistant Name Role Phone JONATHAN Velarde, MIR Unavailable Unavailable SUNIL Velarde, MOOK Unavailable Unavailable BISI Figueroa, JIM Unavailable Unavailable AMI CARLIN Unavailable Unavailable MALIA GARCIA PA, NAVEEN TOWNSEND Unavailable Unavailable MALIA Velarde, NAVEEN Unavailable Unavailable Sunil GARCIA, Mook Unavailable Unavailable Elizabeth Lau, Kay Unavailable Unavailable Unavailable Unavailable Functional Status Name Dates Details Functional status health issues are not documented Status: Name Dates Details Cognitive status health issues are not documented Status: Problems Name Dates Details 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, 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 Elevation of level of transaminase and lactic acid dehydrogenase (LDH) (790.4, R74.0) Status: Active Screen for colon cancer (V76.51, Z12.11) Status: Active Need for influenza vaccination (V04.81, Z23) Status: Active Snoring (786.09, R06.83) Status: Active Headache (784.0, R51) Status: Active Fatigue (780.79, R53.83) Status: Active Severe aortic stenosis (424.1, I35.0) Status: Active Rash (782.1, R21) Status: Active Weight loss, unintentional (783.21, R63.4) Status: Active Pre-procedure lab exam (V72.63, Z01.812) Status: Active Petechial rash (782.7, R23.3) Status: Active Claudication, intermittent (443.9, I73.9) Status: Active Unstable angina (411.1, I20.0) Status: Active Myalgia (729.1, M79.10) Status: Active Sinusitis (473.9, J32.9) Status: Active Wheezing (786.07, R06.2) Status: Active Right calf pain (729.5, M79.661) Status: Active Chronic pain of right knee (719.46, M25.561) Status: Active Negative depression screening (V79.0, Z13.31) Status: Active Bursitis (727.3, M71.9) Status: Active Need for hepatitis C screening test (V73.89, Z11.59) Status: Active Memory loss or impairment (780.93, R41.3) Status: Active Right knee pain, unspecified chronicity (719.46, M25.561) Status: Active Claudication (443.9, I73.9) Status: Active Childhood asthma (493.00, J45.909) Status: Active Encounter for screening for malignant neoplasm of prostate (V76.44, Z12.5) Status: Active Limb pain (729.5, M79.609) Status: Active Abnormal electrocardiogram (794.31, R94.31) Status: Active SOB (shortness of breath) on exertion (786.05, R06.02) Status: Active Chest pain (786.50, R07.9) Status: Active Left groin pain (789.09, R10.32) Status: Active Inguinal hernia (550.90, K40.90) Status: Active Severe aortic stenosis (424.1, I35.0) Status: Active Pleural effusion on right (511.9, J90) Status: Active Dementia (294.20, F03.90) Status: Active S/P placement of cardiac pacemaker (V45.01, Z95.0) Status: Active Special Dr. Services Analysis Of Computerized Data Status: Active Duration Of Encounter - Review Of Prior Records (___ min) Status: Active Memory difficulties (780.93, R41.3) Status: Active Aortic stenosis (424.1, I35.0) Status: Active Status post aortic valve replacement with bioprosthetic valve (V42.2, Z95.3) Status: Active Status post aortic valve replacement with bioprosthetic valve (V42.2, Z95.3) Status: Active Rectal bleeding (569.3, K62.5) Status: Active Anticoagulated (V58.61, Z79.01) Status: Active Post-operative state (V45.89, Z98.890) Status: Active Pruritus (698.9, L29.9) Status: Active Hypokalemia (276.8, E87.6) Status: Active Elevated bilirubin (277.4, R17) Status: Active Infected pacemaker, 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, T82.7XXD) Status: Active Bacteremia (790.7, R78.81) Status: Active Hospital discharge follow-up (V67.59, Z09) Status: Active Increased pressure in the eye (365.00, H40.059) Status: Active Ptosis of left eyelid (374.30, H02.402) Status: Active S/P aortic valve replacement (V43.3, Z95.2) Status: Active Bilateral impacted cerumen (380.4, H61.23) Status: Active Decreased hearing of both ears (389.9, H91.93) Status: Active NSVT (nonsustained ventricular tachycardia) (427.1, I47.2) Status: Active Sensorineural hearing loss, bilateral (389.18, H90.3) Status: Active CAD (coronary artery disease) (414.00, I25.10) Status: Active Hyperlipidemia, unspecified hyperlipidemia type (272.4, E78.5) Status: Active Aortic valve disease (424.1, I35.9) Status: Active Iron deficiency anemia (280.9, D50.9) Status: Active Mid back pain (724.5, M54.9) Status: Active Allergic rhinitis (477.9, J30.9) Status: Active Cough (786.2, R05) Status: Active Never smoker Status: Active Closed wedge compression fracture of eighth thoracic vertebra, initial encounter (805.2, S22.060A) Status: Active Osteoporosis screening (V82.81, Z13.820) Status: Active Essential (primary) hypertension (401.9, I10) Status: Active Diabetes mellitus type 2, uncontrolled (250.02, E11.65) Status: Active Thrombocytopenia (287.5, D69.6) Status: Active Medications Name Dates Details Aspirin 81 MG TABS TAKE ONE TABLET BY MOUTH ONCE DAILY Quantity: 30 CHARITAKIS M.D., MOOK Active Accu-Chek SmartView In Vitro Strip TEST TWICE DAILY. * Quantity: 1 Refills: 4 YEH D.O., JIM * Start : 16-Mar-2015 Active 100 Strip Box Fluocinonide 0.05 % External Ointment APPLY SPARINGLY TO scalp ONCE DAILY * Quantity: 1 Refills: 0 JONATHAN M.D., MIR Active 60 GM Tube Fluocinolone Acetonide Body 0.01 % External Oil Apply once daily to face and body * Quantity: 1 Refills: 0 JONATHAN M.D.MIR Active 118.28 ML Bottle Losartan Potassium-HCTZ 100-12.5 MG Oral Tablet TAKE 1 TABLET BY MOUTH EVERY MORNING * Quantity: 90 Refills: 1 MOOK BARBER M.D. * Start : 12-Dec-[address]OP PRN * Refills: 0 Active 15 ML Bottle Ferrous Sulfate 325 (65 Fe) MG Oral Tablet TAKE 1 TABLET BY MOUTH DAILY WITH FOOD * Quantity: 90 Refills: 1 MOOK BARBER M.D. * Start : 09-Jan-2018 Active Atorvastatin Calcium 80 MG Oral Tablet TAKE 1 TABLET BY MOUTH AT BEDTIME * Quantity: 90 Refills: 1 GRACEAMI AWRE * Start : 13-Feb-2018 Active AmLODIPine Besylate 10 MG Oral Tablet TAKE 1 TABLET BY MOUTH EVERY DAY * Quantity: 30 Refills: 0 GRACEAMI WARE * Start : 16-Feb-2018 Active Clopidogrel Bisulfate 75 MG Oral Tablet TAKE 1 TABLET BY MOUTH DAILY * Quantity: 90 Refills: 0 GRACE AMI Boothe * Start : 21-Feb-2018 Active OneTouch Verio In Vitro Strip test once daily * Quantity: 100 Refills: 0 JONATHAN M.D.MIR * Start : 27-Apr-2018 Active MetFORMIN HCl - 500 MG Oral Tablet TAKE 2 TABLETS BY MOUTH EVERY 12 HOURS. TAKE AFTER A MEAL. * Quantity: 360 Refills: 0 GRACE P.AAMI Pete * Start : 28-Apr-2018 Active OneTouch Delica Lancets Fine USE DIRECTED EVERY DAY * Quantity: 100 Refills: 0 GRACE P.A.AMI * Start : 28-Apr-2018 Active Benzonatate 100 MG Oral Capsule 1-2 tabs every 8 hours as needed for cough * Quantity: 40 Refills: 0 GRACE AMI Boothe * Start : 19-Mar-2018 Active Allergies and Adverse Reactions Name Dates Details Morphine Derivatives (Allergy) Status: Active Lincoln TABS (Allergy) Status: Active oxycodone (Allergy) Status: Active Tylenol with Codeine #3 TABS (Allergy) Status: Active Past Medical History Name Dates Details History of Abnormal blood chemistry (790.6, R79.9) Status: Resolved History of At standard risk for fall (V15.88, Z91.81) Status: Resolved History of coronary artery disease (V12.59, Z86.79) Status: Resolved History of diabetes mellitus (V12.29, Z86.39) Status: Resolved History of Exertional angina (413.9, I20.8) Status: Resolved History of heart valve abnormality (V12.59, Z86.79) Status: Resolved History of hypertension (V12.59, Z86.79) Status: Resolved History of paroxysmal supraventricular tachycardia (V12.59, Z86.79) Status: Resolved History of rectal bleeding (V12.79, Z87.19) Status: Resolved History of tinea corporis (V12.09, Z86.19) Status: Resolved Procedures Procedure Dates Details [QLH] CBC (INCLUDES DIFF/PLT) Date: 27-Apr-2018 History of Tonsillectomy With Adenoidectomy Completed History of Cholecystectomy Completed History of Aortic valve replacement Completed History of Permanent pacemaker insertion Completed Immunization Name Dates Details Tdap on: Aug-2010 Influenza on: 31-May-2011 Fluzone INJ Lot #: [id number] on: 20-Apr-2013 Fluzone Quadrivalent 0.5 ML Intramuscular Suspension Prefilled Syringe Lot #: [id number] on: 06-Mar-2015 Family History Name Dates Details Family history of Colon Cancer (V16.0) Comments: Family History Status: Active Family history of Hypertension (V17.49) Comments: Family History Status: Active Family history of cardiovascular disease (V17.49, Z82.49) Comments: Family History Status: Active Name Dates Details Family history of Leukemia (V16.6) Status: Active FH: CABG (coronary artery bypass surgery) (V17.3, Z82.49) Status: Active Name Dates Details Family history of Diabetes Mellitus (V18.0) Status: Active Family history of H/O heart transplant (V42.1, Z94.1) Status: Active Family history of malignant neoplasm of stomach (V16.0, Z80.0) Status: Active Social History Name Dates Details - Status: Name Dates Details Never smoker Never smoker Vital Signs Date Test Result Details No Known Vitals to report Results Date Description Value Details :11 [[facility]] IRON AND TOTAL IRON BINDING CAPACITY IRON, TOTAL 136 {mcg/dl} (Normal) Range: 50-180 IRON BINDING CAPACITY 345 {mcg/dL__ca} (Normal) Range: 250-425 % SATURATION 39 {%__CALC} (Normal) Range: 15-60 :11 [[facility]] CMP W/EGFR GLUCOSE 133 mg/dl (Normal) Range: 65-139 Comments: Non-fasting reference interval UREA NITROGEN (BUN) 14 mg/dl (Normal) Range: 7-25 CREATININE 0.84 mg/dl (Normal) Range: 0.70-1.18 Comments: For patients >49 years of age, the reference limitfor Creatinine is approximately 13% higher for peopleidentified as -Maced[place]. eGFR NON- 87 {ML/MIN/1.7} (Normal) Range: > OR=60 eGFR 101 {ML/MIN/1.7} (Normal) Range: > OR=60 BUN/CREATININE RATIO NOT APPLICABLE {CALC} Range: 6-22 SODIUM 139 mmol/L (Normal) Range: 135-146 POTASSIUM 3.9 mmol/L (Normal) Range: 3.5-5.3 CHLORIDE 103 mmol/L (Normal) Range: 98-110 CARBON DIOXIDE 29 mmol/L (Normal) Range: 20-32 CALCIUM 9.6 mg/dl (Normal) Range: 8.6-10.3 PROTEIN, TOTAL 7.1 g/dl (Normal) Range: 6.1-8.1 ALBUMIN 4.2 g/dl (Normal) Range: 3.6-5.1 GLOBULIN 2.9 {G/DL__CALC} (Normal) Range: 1.9-3.7 ALBUMIN/GLOBULIN RATIO 1.4 {CALC} (Normal) Range: 1.0-2.5 BILIRUBIN, TOTAL 1.5 mg/dl (Above high threshold) Range: 0.2-1.2 ALKALINE PHSPHATASE 65 u/l (Normal) Range: 40-115 AST 28 u/l (Normal) Range: 10-35 ALT 40 u/l (Normal) Range: 9-46 :11 [[facility]] CBC (INCLUDES DIFF/PLT) WHITE BLOOD CELL COUNT 6.3 {Thousand/u} (Normal) Range: 3.8-10.8 RED BLOOD CELL COUNT 4.68 {Million/uL} (Normal) Range: 4.20-5.80 HEMAGLOBIN 13.9 g/dl (Normal) Range: 13.2-17.1 HEMATOCRIT 41.1 % (Normal) Range: 38.5-50.0 MCV 87.8 fL (Normal) Range: 80.0-100.0 MCH 29.7 pg (Normal) Range: 27.0-33.0 MCHC 33.8 g/dl (Normal) Range: 32.0-36.0 RDW 13.3 % (Normal) Range: 11.0-15.0 PLATELET COUNT 135 {Thousand/u} (Below low threshold) Range: 140-400 MPV 11.7 fL (Normal) Range: 7.5-12.5 ABSOLUTE NEUTROPHILS 4486 {cells/uL} (Normal) Range: 3387-7521 ABSOLUTE LYMPHOCYTES 1159 {cells/uL} (Normal) Range: 850-3900 ABSOLUTE MONOCYTES 479 {cells/uL} (Normal) Range: 200-950 ABSOLUTE EOSINOPHILS 139 {cells/uL} (Normal) Range: 15-500 ABSOLUTE BASOPHILS 38 {cells/uL} (Normal) Range: 0-200 NEUTROPHILS 71.2 % (Normal) LYMPHOCYTES 18.4 % (Normal) MONOCYTES 7.6 % (Normal) EOSINOPHILS 2.2 % (Normal) BASOPHILS 0.6 % (Normal) :11 [[facility]] FERRITIN FERRITIN 24 ng/ml (Normal) Range: 20-380 :11 [[facility]] HEMOGLOBIN A1c Comments: REPORT COMMENT:FASTING:NO HEMOGLOBIN A1c 7.5 {%_of_total} (Above high threshold) Range: <5.7 Comments: For someone without known diabetes, a hemoglobin [id number] of 6.5% or greater indicates that they may have diabetes and this should be confirmed with a follow-up test. For someone with known diabetes, a value <7% indicates that their diabetes is well controlled and a value greater than or equal to 7% indicates suboptimal control. A1c targets should be individualized based on duration of diabetes, age, comorbid conditions, and other considerations. Currently, no consensus exists regarding use ofhemoglobin A1c for diagnosis of diabetes for children. Plan of Care Name Dates Details Planned Observations Planned Goals not documented Planned Encounters Appointment; RENETTA BROWN On: 12-Jun-2018 9:00 Appointment; MOOK BARBER M.D. On: 12-Jun-2018 10:00 Appointment; ERNESTO KING M.D. On: 21-Jan-2019 9:00 Interventions Provided Medication Changes* MetFORMIN HCl - 500 MG Oral Tablet - Renew * OneTouch Delica Lancets Fine - Renew Instructions Name Dates Details Instructions not documented Encounters Appointment; MIR CASTILLO M.D. Encounter Diagnosis: Problem not documented On: 28-May-2017 13:15 Appointment; MOOK BARBER M.D. Encounter Diagnosis: Problem not documented On: 03-Jun-2017 10:20 Appointment; ERNESTO TOLEDO M.D. Encounter Diagnosis: Problem not documented On: 06-Jun-2017 10:00 Appointment; RENETTA NUCLEAR Encounter Diagnosis: Problem not documented On: 10-Jun-2017 8:15 Appointment; RENETTA, ECHO Encounter Diagnosis: Problem not documented On: 10-Jun-2017 10:00 Appointment; MOOK BARBER M.D. Encounter Diagnosis: Problem not documented On: 10-Jun-2017 13:00 Appointment; MIR CASTILLO M.D. Encounter Diagnosis: Problem not documented On: 11-Jun-2017 9:00 Appointment; DOTTIE RODRIGUEZ M.D. Encounter Diagnosis: Problem not documented On: 16-Jul-2017 12:15 Appointment; HU ROMANO NP Encounter Diagnosis: Problem not documented On: 17-Jul-2017 13:30 Appointment; ROSANNE ORELLANA M.D. Encounter Diagnosis: Problem not documented On: 18-Jul-2017 14:30 Appointment; MOOK BARBER M.D. Encounter Diagnosis: Problem not documented On: 23-Jul-2017 18:20 Appointment; STEPHANIE RICHARDSON M.D. Encounter Diagnosis: Problem not documented On: 01-Aug-2017 15:00 Appointment; MIR CASTILLO M.D. Encounter Diagnosis: Problem not documented On: 07-Aug-2017 13:00 Appointment; MOOK BARBER M.D. Encounter Diagnosis: Problem not documented On: 20-Aug-2017 13:20 Appointment; MIR CASTILLO M.D. Encounter Diagnosis: Problem not documented On: 08-Sep-2017 9:00 Appointment; MOOK BARBER M.D. Encounter Diagnosis: Problem not documented On: 28-Oct-2017 10:20 Appointment; AMI EDWARDS P.A. Encounter Diagnosis: Problem not documented On: 30-Oct-2017 8:45 Appointment; SOL DE JESUS Encounter Diagnosis: Problem not documented On: 04-Nov-2017 9:15 Appointment; AMI EDWARDS P.A. Encounter Diagnosis: Problem not documented On: 20-Nov-2017 8:00 Appointment; MOOK BARBER M.D. Encounter Diagnosis: Problem not documented On: 09-Dec-2017 11:20 Appointment; SOL DE JESUS Encounter Diagnosis: Problem not documented On: 16-Dec-2017 9:15 Appointment; AMI EDWARDS P.A. Encounter Diagnosis: Problem not documented On: 19-Dec-2017 8:30 Appointment; ERNESTO KING M.D. Encounter Diagnosis: Problem not documented On: 08-Jan-2018 10:15 Appointment; STEPHON CAN Encounter Diagnosis: Problem not documented On: 12-Jan-2018 9:00 Appointment; ROSANNE ORELLANA M.D. Encounter Diagnosis: Problem not documented On: 16-Jan-2018 9:30 Appointment; ERNESTO KING M.D. Encounter Diagnosis: Problem not documented On: 22-Jan-2018 9:30 Appointment; DANIEL JACKSON Encounter Diagnosis: Problem not documented On: 24-Feb-2018 11:00 Appointment; MOOK BARBER M.D. Encounter Diagnosis: Problem not documented On: 24-Feb-2018 12:20 Appointment; GRACE, AMI, P.A. Encounter Diagnosis: Problem not documented On: 19-Mar-2018 8:15 Appointment; AMI EDWARDS P.A. Encounter Diagnosis: Problem not documented On: 19-Mar-2018 8:15 Appointment; AMI EDWARDS P.A. Encounter Diagnosis: Problem not documented On: 20-Mar-2018 8:15 Appointment; AMI EDWARDS P.A. Encounter Diagnosis: Problem not documented On: 21-Apr-2018 10:45
--- NOTE | 2018-05-05 20:54 | Diagnostic Imaging Report ---
EXAMINATION: Head CT without contrast. HISTORY:Numbness and right facial droop. COMPARISON:None. TECHNIQUE: Multidetector axial images were obtained from the foramen magnum to the vertex without contrast. The images were reconstructed using brain and bone algorithms. Thin section brain images were reformatted into coronal and sagittal planes. Dose modulation, iterative reconstruction, and/or weight based adjustment of the mA/kV was utilized to reduce the radiation dose to as low as reasonably achievable. Intravenous contrast: None IMAGE QUALITY: Acceptable. FINDINGS: Skull/scalp: No lytic or blastic. lesions. No surgical changes. Parenchyma: No abnormal density. No acute hemorrhage, mass or acute major vascular territorial infarct. Arteries: No density suggestive of thrombosis. Mild atherosclerotic calcification in bilateral carotid siphon. Dural sinuses: No abnormal density suggestive of thrombosis. Ventricles: No hydrocephalus or displacement. Extra-axial spaces: No abnormal density. Brain volume: Mild generalized cerebral volume loss. Craniocervical junction: No mass, Chiari malformation, or basilar invagination. Sella: No mass. Paranasal/mastoid sinuses: Imaged portions unremarkable. IMPRESSION: No acute intracranial abnormality. Mild generalized cerebral volume loss. Signed by: Dr. Rina Gayle M.D. on 05/05/2018 8:50 PM
[2018-05-06 00:33] VITALS: BP 184/103
== END 2018-05-06 01:09 | disposition home or self-care (01) ==
LOC: ER 18:42
DX: G51.0 Bell's palsy (principal); I10 Essential (primary) hypertension; E11.9 Type 2 diabetes mellitus without complications; I25.10 Atherosclerotic heart disease of native coronary artery without angina pectoris; H40.9 Unspecified glaucoma; H26.9 Unspecified cataract; Z95.2 Presence of prosthetic heart valve; Z88.5 Allergy status to narcotic agent
CPT/HCPCS: 70450; 99283

== ENCOUNTER 2019-11-11 20:56 | Inpatient (IN) | payer OTHER ==
[~2019-11-11] VITALS: Ht 170.2 cm; Wt 89.8 kg
--- OUTSIDE RECORDS SUMMARY | 2019-11-11 21:00 | XMS REPORT ---
Author Author JAQUI FRIEDMAN Organization Unknown Address Unknown Phone Care Team Providers Care Outdoor Adventure Leader Name Role Phone ELDERINDIGO PP Unavailable Reason for Referral No Reason for Referral was given. History of Present Illness No HPI available. Problems * Normal Routine History And Physical Senior Citizen (65-80) (V70.0); ( Active) * Hypertension (401.9); (Active) * Fatigue (780.79); (Active) * Male Erectile Disorder (302.72); (Active) * Visit For: Screening Exam Malignant Neoplasm Prostate (V76.44); (Active ) * Metabolic Tests Nonspecific Elevation Of Transaminase Levels (790.4); ( Active) * Abnormal Electrocardiogram (794.31); (Active) Medication * Aspirin 81 MG Oral Tablet; TAKE ONE TABLET BY MOUTH ONCE DAILY (Active) * Losartan Potassium-HCTZ 100-12.5 MG Oral Tablet; TAKE 1 TABLET DAILY.; Start Date: 04/16/2013; End Date: (Active) * Metoprolol Succinate ER 100 MG Oral Tablet Extended Release 24 Hour; TAKE 1 TABLET DAILY.; Start Date: ; End Date: (Active) * AmLODIPine Besylate 10 MG Oral Tablet; TAKE 1 TABLET DAILY.; Start Date: 04/27/2013; End Date: (Active) Allergies and Adverse Reactions * No Known Allergies (Active) Past Medical History * History of Childhood Asthma (493.00); (Resolved) * History of Paroxysmal Supraventricular Tachycardia (427.0); (Resolved) * History of Hyperlipidemia (272.4); (Resolved) * History of Tinea Corporis (110.5); (Resolved) Procedures Procedure Procedure Date Date Completed Status Tonsillectomy With Adenoidectomy - - Resolved Cholecystectomy - - Resolved Immunization * Tdap - Administered on: 09/03/2010 * Influenza - Administered on: 05/31/2011 * Fluzone Intramuscular Injectable (Lot #: [id number]) - Administered on: 04/20/2013 Family History * Fraternal history of Diabetes Mellitus (V18.0); (Active) * Paternal history of Leukemia (V16.6); (Active) * Family history of Colon Cancer (V16.0); (Active) * Family history of Hypertension (V17.49); (Active) * Family history of Coronary Artery Disease (V17.49); (Active) Social History * Marital History - Currently (Active) * Tobacco Non-user (Active) * No History of Alcohol Use (Denied) * Never A Smoker (Active) Treatment Plan * [QLH] CBC (INCLUDES DIFF/PLT) 04/16/2013 Routine * [QLH] CMP W/EGFR 04/16/2013 Routine * [Q] LIPID PANEL WITH REFLEX TO DIRECT LDL 04/16/2013 Routine * [QLH] TESTOSTERONE, FREE AND TOTAL, LC/MS/MS 04/16/2013 Routine * [QLH] PSA, TOTAL 04/16/2013 Routine * [N] Nuclear Test-Adenosine Stress Perfusion 05/13/2013 Routine Advance Directives * No Advance Directives available. Encounters * AUDIT 05/02/2013 * AST, Provider: RADHA OWEN, Status: Cl, Time: 8:15 AM 05/13/2013 * EST, Provider: DARLYN SMART, Status: Cl, Time: 9:00 AM 05/19/2013
--- OUTSIDE RECORDS SUMMARY | 2019-11-11 21:00 | XMS REPORT ---
Author Author JAQUI Rosario Organization Unknown Address Unknown Phone Care Team Providers Care Dialysis Registered Nurse Name Role Phone Linda Rosario PP Unavailable Reason for Referral No Reason for Referral was given. History of Present Illness No HPI available. Problems * Normal Routine History And Physical Senior Citizen (65-80) (V70.0); ( Active) * Hypertension (401.9); (Active) * Fatigue (780.79); (Active) * Male Erectile Disorder (302.72); (Active) * Visit For: Screening Exam Malignant Neoplasm Prostate (V76.44); (Active ) * Abnormal Electrocardiogram (794.31); (Active) * Skin: A Rash (782.1); (Active) * Metabolic Tests Nonspecific Elevation Of Transaminase Levels (790.4); ( Active) Medication * Aspirin 81 MG Oral Tablet; TAKE ONE TABLET BY MOUTH ONCE DAILY (Active) * Metoprolol Succinate ER 100 MG Oral Tablet Extended Release 24 Hour; TAKE 1 TABLET DAILY.; Start Date: ; End Date: (Active) * Losartan Potassium-HCTZ 100-25 MG Oral Tablet; TAKE 1 TABLET DAILY.; Start Date: 04/16/2013; End Date: (Active) * AmLODIPine Besylate 10 MG Oral Tablet; TAKE 1 TABLET DAILY.; Start Date: 04/27/2013; End Date: (Active) * Calcipotriene 0.005 % External Cream; APPLY AND GENTLY MASSAGE INTO AFFECTED AREA(S) TWICE DAILY.; Start Date: 09/16/2013; End Date: (Active) Allergies and Adverse Reactions [...] 05/31/2011 * Fluzone Intramuscular Injectable (Lot #: [id number]) - Administered on: 04/20/2013 Family History * [...] A Smoker (Active) Treatment Plan * [QLH] TESTOSTERONE, FREE AND TOTAL, LC/MS/MS 04/16/2013 Routine * [QLH] PSA, TOTAL 04/16/2013 Routine * US Abdomen complete [id number] 09/16/2013 Routine Advance Directives * No Advance Directives available. Encounters * AUDIT 09/21/2013 * KT, Provider: FRANCISCO RICO, Status: Cl, Time: 8:30 AM 09/30/2013
--- OUTSIDE RECORDS SUMMARY | 2019-11-11 21:00 | XMS REPORT ---
Author Author JAQUI FINLEY Organization Unknown Address Unknown Phone Care Team Providers Care Mail Courier Name Role Phone MALIA NAVEEN PP Unavailable Reason for Referral No Reason [...] ( Active) * Abnormal Electrocardiogram (794.31); (Active) * Contusion With Intact Skin Surface (924.9); (Active) Medication * Aspirin 81 MG Oral [...] 05/31/2011 * Fluzone Intramuscular Injectable (Lot #: [id number]) - Administered on: 04/20/2013 Family History * [...] Routine * [QLH] PSA, TOTAL 04/16/2013 Routine Advance Directives * No Advance Directives available. Encounters * AUDIT 06/21/2013 * EST, Provider: DARLYN SMART, Status: Cl, Time: 8:30 AM 08/25/2013
--- OUTSIDE RECORDS SUMMARY | 2019-11-11 21:00 | XMS REPORT ---
Author Author JAQUI Small Organization Unknown Address Unknown Phone Care Team Providers Care Genetic Technologist Name Role Phone Irwin Small PP Unavailable Reason for Referral No Reason [...] 05/31/2011 * Fluzone Intramuscular Injectable (Lot #: [id number]) - Administered on: 04/20/2013 Family History * [...] No Advance Directives available. Encounters * AUDIT 05/13/2013
--- OUTSIDE RECORDS SUMMARY | 2019-11-11 21:00 | XMS REPORT ---
Author Author JAQUI Becker Organization Unknown Address Unknown Phone Care Team Providers Care Vanstone Machine Operator Name Role Phone EugenioUnaan PP Unavailable Reason for Referral No Reason for Referral was given. History of Present Illness No HPI available. Problems * Normal Routine History And Physical Senior Citizen (65-80) (V70.0); ( Active) * Fatigue (780.79); (Active) * Hypertension (401.9); (Active) * Male Erectile Disorder (302.72); (Active) * Visit For: Screening Exam Malignant Neoplasm Prostate (V76.44); (Active ) * Metabolic Tests Nonspecific Elevation Of Transaminase Levels (790.4); ( Active) * Abnormal Electrocardiogram (794.31); (Active) * Contusion With Intact Skin Surface (924.9); (Active) * Acute Upper Respiratory Infection (465.9); (Active) Medication * Aspirin 81 MG Oral [...] Start Date: 04/27/2013; End Date: (Active) * PredniSONE 10 MG Oral Tablet; 1 tab po bid x 5d, then 1 tab po qd x 5d.; Start Date: 07/24/2013; End Date: (Active) Allergies and Adverse Reactions [...] 05/31/2011 * Fluzone Intramuscular Injectable (Lot #: [id number]) - Administered on: 04/20/2013 Family History * [...] No Advance Directives available. Encounters * AUDIT 07/29/2013 * EST, Provider: DARLYN SMART, Status: lC, Time: 8:30 AM 08/25/2013
--- OUTSIDE RECORDS SUMMARY | 2019-11-11 21:00 | XMS REPORT ---
Author Author JAQUI FRIEDMAN Organization Unknown Address Unknown Phone Care Team Providers Care Respiratory Clinician Name Role Phone INDIGO FRIEDMAN PP Unavailable Reason for Referral No Reason [...] Transaminase Levels (790.4); ( Active) Medication * AmLODIPine Besylate 5 MG Oral Tablet; 1 po q day; Start Date: 04/13/2013; End Date: (Active) * Losartan Potassium-HCTZ 100-12.5 MG Oral Tablet; TAKE 1 TABLET DAILY. (Active) * Metoprolol Succinate ER 100 MG Oral Tablet Extended Release 24 Hour; TAKE 1 TABLET DAILY.; Start Date: ; End Date: (Active) * Losartan Potassium-HCTZ 100-12.5 MG Oral Tablet; TAKE 1 TABLET DAILY.; Start Date: 04/16/2013; End Date: (Active) * Norvasc 5 MG Oral Tablet; TAKE 1 TABLET DAILY. (Active) * Aspirin 81 MG Oral Tablet; TAKE ONE TABLET BY MOUTH ONCE DAILY (Active) Allergies and Adverse Reactions * No [...] 09/03/2010 * Influenza - Administered on: 05/31/2011 Family History * Fraternal history of Diabetes [...] * [QLH] PSA, TOTAL 04/16/2013 Routine * [QLH] TESTOSTERONE, FREE AND TOTAL, LC/MS/MS 04/17/2013 Routine * [N] Echo Follow up/Limited 04/16/2013 Routine * Cardiology Referral 04/16/2013 Routine Advance Directives * No Advance Directives available. Encounters * AUDIT 04/18/2013 * E[facility], Provider: DANIEL AMIN, Status: Cl, Time: 2:00 PM 04/27/2013 * CPP, Provider: DARLYN SMART, Status: Cl, Time: 3:00 PM 04/27/2013
--- OUTSIDE RECORDS SUMMARY | 2019-11-11 21:00 | XMS REPORT | Continuity of Care Document ---
Author Author GlycobiaJAQUI Glycobia Address Unknown Phone Unavailable Care Team Providers Care Skein Winder Name Role Phone [employer] Unavailable Un available Problems Problem Status Onset Date Classification Date Reported Comments Source Hypertension Active 09/30/2013 [facility] Fatigue Active 09/30/2013 [facility] Male Erectile Disorder Active 09/30/2013 [facility] Metabolic Tests Nonspecific Elevation Of Transaminase Levels Active 09/30/2013 [facility] Abnormal Electrocardiogram Act chris 09/30/2013 [facility] Contusion With Intact Skin Surface Active 07/29/2013 [facility] Acute Upper Respiratory Infection Active 07/29/2013 [facility] Skin: A Rash Active 09/30/2013 [facility] Medications Medication Details Route Status Patient Instructions Ordering Provider Order Date Source Calcipotriene 0.005 % External Cream ; Start Date: 09/16/2013; End Date: (Active) Active 09/16/2013 [facility] Azithromycin 250 MG Oral Tablet ; Start Date: 07/24/2013; End Date: 07/29/2013 (Active) Active 07/24/2013 [facility] PredniSONE 10 MG Oral Tablet ; Start Date: 07/24/2013; End Date: (Active) Active 07/24/2013 [facility] AmLODIPine Besylate 10 MG Oral Tablet ; Start Date: 04/27/2013; End Date: (Active) Active 04/27/2013 [facility] Losartan Potassium-HCTZ 100-12.5 MG Oral Tablet ; Start Date: 04/16/2013; End Date: (Active) Active 04/16/2013 [facility] Losartan Potassium-HCTZ 100-25 MG Oral Tablet ; Start Date: 04/16/2013; End Date: (Active) Active 04/16/2013 [facility] AmLODIPine Besylate 5 MG Oral Tablet ; Start Date: 04/13/2013; End Date: (Active) Active 04/13/2013 [facility] Metoprolol Succinate ER 100 MG Oral Tabl et Extended Release 24 Hour ; Start Date: ; End Date: 06/1899 (Active) Inactive [facility] Metoprolol Succinate ER 100 MG Oral Tabl et Extended Release 24 Hour ; Start Date: ; End Date: 06/1899 (Active) Inactive [facility] Losartan Potassium-HCTZ 100-12.5 MG Oral Tablet (Active) Active [facility] Norvasc 5 MG Oral Tablet (Act chris) Active [facility] Aspirin 81 MG Oral Tablet (Ac tive) Active [facility] Metoprolol Succinate ER 100 MG Oral Tabl et Extended Release 24 Hour (Active) A ctive [facility] Allergies, Adverse Reactions, Alerts No Known Medication Allergies Immunizations Immunization Date Given Site Status Last Updated Comments Source Fluzone Intramuscular Injectable 04/20/2013 completed [facility] Influenza 05/31/2011 completed [facility] Tdap 09/03/2010 completed [facility] Results No Data Provided for This Section Pathology Reports No Data Provided for This Section Diagnostic Reports No Data Provided for This Section Consultation Notes No Data Provided for This Section Discharge Summaries No Data Provided for This Section History and Physicals No Data Provided for This Section Vital Signs No Data Provided for This Section Encounters Location Location Details Encounter Type Encounter Number Reason For Visit Attending Provider ADM Date DC Date Status Source AUDIT [id number] 04/15/2013 04/15/2013 [facility] SUSIE Provi ayanna: INDIGO FRIEDMAN, Status: Pen, Time: 9:45 AM [id number] 04/16/20 13 04/15/2013 [facility] AUDIT [id number] 04/16/2013 04/17/2013 [facility] AUDIT [id number] 04/18/2013 04/18/2013 [facility] AUDIT [id number] 04/20/2013 04/20/2013 [facility] JOEL, Provi ayanna: DANIEL AMIN, Status: Pen, Time: 2:00 PM [id number] 04/27/20 13 04/20/2013 [facility] SANGITA Provi ayanna: DARLYN SMART, Status: Pen, Time: 3:00 PM [id number] 04/27/20 13 04/20/2013 [facility] AUDIT [id number] 05/02/2013 05/02/2013 [facility] AUDIT [id number] 05/12/2013 05/12/2013 [facility] AST, Provi ayanna: SE,NUCLEAR, Status: Pen, Time: 8:15 AM [id number] 05/13/20 13 05/12/2013 [facility] AUDIT [id number] 05/13/2013 05/13/2013 [facility] EST, Provi ayanna: DARLYN SMART, Status: Pen, Time: 9:00 AM [id number] 05/19/20 13 05/02/2013 [facility] AUDIT [id number] 05/24/2013 05/24/2013 [facility] AUDIT [id number] 06/21/2013 06/21/2013 [facility] AUDIT [id number] 07/24/2013 07/24/2013 [facility] AUDIT [id number] 07/29/2013 07/29/2013 [facility] EST, Provi ayanna: DARLYN SMART, Status: Pen, Time: 8:30 AM [id number] 08/26/19 14 07/29/2013 [facility] AUDIT [id number] 09/16/2013 09/16/2013 [facility] AUDIT [id number] 09/21/2013 09/21/2013 [facility] FUP, Provi ayanna: FRANCISCO RICO, Status: Pen, Time: 8:30 AM [id number] 09/30/2013 09/21/2013 [facility] AUDIT [id number] 09/30/2013 09/30/2013 [facility] EST, Provi ayanna: DARLYN SMART, Status: Pen, Time: 9:00 AM [id number] 10/27/19 14 09/30/2013 [facility] Procedures No Data Provided for This Section Assessment and Plan No Data Provided for This Section Plan of Care Plan of Care Date Source [QLH] TESTOSTERONE, FREE AND TOTAL, LC/M S/MS 04/16/2013 Routine[QLH] PSA, TOTAL 04/16/2013 Routine 09/30/2013 [facility] [QLH] TESTOSTERONE, FREE AND TOTAL, LC/M S/MS 04/16/2013 Routine[QLH] PSA, TOTAL 04/16/2013 RoutineUS Abdomen complete [id number] 09/16/2013 Routine 09/21/2013 [facility] [QLH] CBC (INCLUDES DIFF/PLT) 04/16/2013 Routine[QLH] CMP W/EGFR 04/16/2013 Routine[QH] LIPID PANEL WITH REFLEX TO DIRECT LDL 04/16/2013 Routine[QLH] TESTOSTERONE, FREE AND TOTAL, LC/MS/MS 04/16/2013 Routine[QLH] PSA, TOTAL 04/16/2013 Routine[QLH] CMP W/EGFR 09/16/2013 Routine[QLH] GGT 09/16/2013 Routine[QLH] HEPATITIS PANEL 09/16/2013 Routine[QLH] TRANSFERRIN 09/16/2013 Routine[QLH] FERRITIN 09/16/2013 RoutineDermatology Referral 09/16/2013 Routine 09/16/2013 [facility] [QLH] CBC (INCLUDES DIFF/PLT) 04/16/2013 Routine[QLH] CMP W/EGFR 04/16/2013 Routine[Q] LIPID PANEL WITH REFLEX TO DIRECT LDL 04/16/2013 Routine[QLH] TESTOSTERONE, FREE AND TOTAL, LC/MS/MS 04/16/2013 Routine[QLH] PSA, TOTAL 04/16/2013 Routine 07/29/2013 [facility] [QLH] CBC (INCLUDES DIFF/PLT) 04/16/2013 Routine[QLH] CMP W/EGFR 04/16/2013 Routine[Q] LIPID PANEL WITH REFLEX TO DIRECT LDL 04/16/2013 Routine[QLH] TESTOSTERONE, FREE AND TOTAL, LC/MS/MS 04/16/2013 Routine[QLH] PSA, TOTAL 04/16/2013 Routine 07/24/2013 [facility] [QLH] CBC (INCLUDES DIFF/PLT) 04/16/2013 Routine[QLH] CMP W/EGFR 04/16/2013 Routine[Q] LIPID PANEL WITH REFLEX TO DIRECT LDL 04/16/2013 Routine[QLH] TESTOSTERONE, FREE AND TOTAL, LC/MS/MS 04/16/2013 Routine[QLH] PSA, TOTAL 04/16/2013 Routine 06/21/2013 [facility] [QLH] CBC (INCLUDES DIFF/PLT) 04/16/2013 Routine[QLH] CMP W/EGFR 04/16/2013 Routine[Q] LIPID PANEL WITH REFLEX TO DIRECT LDL 04/16/2013 Routine[QLH] TESTOSTERONE, FREE AND TOTAL, LC/MS/MS 04/16/2013 Routine[QLH] PSA, TOTAL 04/16/2013 Routine 05/24/2013 [facility] [QLH] CBC (INCLUDES DIFF/PLT) 04/16/2013 Routine[QLH] CMP W/EGFR 04/16/2013 Routine[Q] LIPID PANEL WITH REFLEX TO DIRECT LDL 04/16/2013 Routine[QLH] TESTOSTERONE, FREE AND TOTAL, LC/MS/MS 04/16/2013 Routine[QLH] PSA, TOTAL 04/16/2013 Routine 05/13/2013 [facility] [QLH] CBC (INCLUDES DIFF/PLT) 04/16/2013 Routine[QLH] CMP W/EGFR 04/16/2013 Routine[Q] LIPID PANEL WITH REFLEX TO DIRECT LDL 04/16/2013 Routine[QLH] TESTOSTERONE, FREE AND TOTAL, LC/MS/MS 04/16/2013 Routine[QLH] PSA, TOTAL 04/16/2013 Routine[N] Nuclear Test-Adenosine Stress Perfusion 05/13/2013 Routine 05/12/2013 [facility] [QLH] CBC (INCLUDES DIFF/PLT) 04/16/2013 Routine[QLH] CMP W/EGFR 04/16/2013 Routine[Q] LIPID PANEL WITH REFLEX TO DIRECT LDL 04/16/2013 Routine[QLH] TESTOSTERONE, FREE AND TOTAL, LC/MS/MS 04/16/2013 Routine[QLH] PSA, TOTAL 04/16/2013 Routine[N] Nuclear Test-Adenosine Stress Perfusion 05/13/2013 Routine 05/02/2013 [facility] [QLH] CBC (INCLUDES DIFF/PLT) 04/16/2013 Routine[QLH] CMP W/EGFR 04/16/2013 Routine[Q] LIPID PANEL WITH REFLEX TO DIRECT LDL 04/16/2013 Routine[QLH] TESTOSTERONE, FREE AND TOTAL, LC/MS/MS 04/16/2013 Routine[QLH] PSA, TOTAL 04/16/2013 Routine[QLH] TESTOSTERONE, FREE AND TOTAL, LC/MS/MS 04/17/2013 Routine[N] Echo Follow up/Limited 04/16/2013 Routine 04/20/2013 [facility] [QLH] CBC (INCLUDES DIFF/PLT) 04/16/2013 Routine[QLH] CMP W/EGFR 04/16/2013 Routine[Q] LIPID PANEL WITH REFLEX TO DIRECT LDL 04/16/2013 Routine[QLH] TESTOSTERONE, FREE AND TOTAL, LC/MS/MS 04/16/2013 Routine[QLH] PSA, TOTAL 04/16/2013 Routine[QLH] TESTOSTERONE, FREE AND TOTAL, LC/MS/MS 04/17/2013 Routine[N] Echo Follow up/Limited 04/16/2013 RoutineCardiology Referral 04/16/2013 Routine 04/18/2013 [facility] [QLH] CBC (INCLUDES DIFF/PLT) 04/16/2013 Routine[QLH] CMP W/EGFR 04/16/2013 Routine[Q] LIPID PANEL WITH REFLEX TO DIRECT LDL 04/16/2013 Routine[QLH] TSH, 3RD GENERATION W/REFLEX TO FT4 04/16/2013 Routine[QLH] TESTOSTERONE, FREE AND TOTAL, LC/MS/MS 04/16/2013 Routine[QLH] PSA, TOTAL 04/16/2013 Routine[N] Echo Follow up/Limited 04/16/2013 RoutineCardiology Referral 04/16/2013 Routine 04/17/2013 [facility] Social History Social History Date Source Marital History - Currently (Active) Tobacco Non-user (Active) No History of Alcohol Use (Denied) Never A Smoker (Active) Occupation: Retired (Active) 09/30/2013 [facility] Family History Value Date S ource Fraternal history of Diabetes Mellitus ( V18.0); (Active) Paternal history of Leukemia (V16.6); (Active) Family history of Colon Cancer (V16.0); (Active) Family history of Hypertension (V17.49); (Active) Family history of Coronary Artery Disease (V17.49); (Active) 09/30/2013 [facility] Fraternal history of Diabetes Mellitus ( V18.0); (Active) Paternal history of Leukemia (V16.6); (Active) Family history of Colon Cancer (V16.0); (Active) Family history of Hypertension (V17.49); (Active) Family history of Coronary Artery Disease (V17.49); (Active) 09/21/2013 [facility] Fraternal history of Diabetes Mellitus ( V18.0); (Active) Paternal history of Leukemia (V16.6); (Active) Family history of Colon Cancer (V16.0); (Active) Family history of Hypertension (V17.49); (Active) Family history of Coronary Artery Disease (V17.49); (Active) 09/16/2013 [facility] Fraternal history of Diabetes Mellitus ( V18.0); (Active) Paternal history of Leukemia (V16.6); (Active) Family history of Colon Cancer (V16.0); (Active) Family history of Hypertension (V17.49); (Active) Family history of Coronary Artery Disease (V17.49); (Active) 07/29/2013 [facility] Fraternal history of Diabetes Mellitus ( V18.0); (Active) Paternal history of Leukemia (V16.6); (Active) Family history of Colon Cancer (V16.0); (Active) Family history of Hypertension (V17.49); (Active) Family history of Coronary Artery Disease (V17.49); (Active) 07/24/2013 [facility] Fraternal history of Diabetes Mellitus ( V18.0); (Active) Paternal history of Leukemia (V16.6); (Active) Family history of Colon Cancer (V16.0); (Active) Family history of Hypertension (V17.49); (Active) Family history of Coronary Artery Disease (V17.49); (Active) 06/21/2013 [facility] Fraternal history of Diabetes Mellitus ( V18.0); (Active) Paternal history of Leukemia (V16.6); (Active) Family history of Colon Cancer (V16.0); (Active) Family history of Hypertension (V17.49); (Active) Family history of Coronary Artery Disease (V17.49); (Active) 05/24/2013 [facility] Fraternal history of Diabetes Mellitus ( V18.0); (Active) Paternal history of Leukemia (V16.6); (Active) Family history of Colon Cancer (V16.0); (Active) Family history of Hypertension (V17.49); (Active) Family history of Coronary Artery Disease (V17.49); (Active) 05/13/2013 [facility] Fraternal history of Diabetes Mellitus ( V18.0); (Active) Paternal history of Leukemia (V16.6); (Active) Family history of Colon Cancer (V16.0); (Active) Family history of Hypertension (V17.49); (Active) Family history of Coronary Artery Disease (V17.49); (Active) 05/12/2013 [facility] Fraternal history of Diabetes Mellitus ( V18.0); (Active) Paternal history of Leukemia (V16.6); (Active) Family history of Colon Cancer (V16.0); (Active) Family history of Hypertension (V17.49); (Active) Family history of Coronary Artery Disease (V17.49); (Active) 05/02/2013 [facility] Fraternal history of Diabetes Mellitus ( V18.0); (Active) Paternal history of Leukemia (V16.6); (Active) Family history of Colon Cancer (V16.0); (Active) Family history of Hypertension (V17.49); (Active) Family history of Coronary Artery Disease (V17.49); (Active) 04/20/2013 [facility] Fraternal history of Diabetes Mellitus ( V18.0); (Active) Paternal history of Leukemia (V16.6); (Active) Family history of Colon Cancer (V16.0); (Active) Family history of Hypertension (V17.49); (Active) Family history of Coronary Artery Disease (V17.49); (Active) 04/18/2013 [facility] Fraternal history of Diabetes Mellitus ( V18.0); (Active) Paternal history of Leukemia (V16.6); (Active) Family history of Colon Cancer (V16.0); (Active) Family history of Hypertension (V17.49); (Active) Family history of Coronary Artery Disease (V17.49); (Active) 04/17/2013 [facility] Fraternal history of Diabetes Mellitus ( V18.0); (Active) Paternal history of Leukemia (V16.6); (Active) Family history of Colon Cancer (V16.0); (Active) Family history of Hypertension (V17.49); (Active) Family history of Coronary Artery Disease (V17.49); (Active) 04/15/2013 [facility] Advance Directives Order Name Results Value Date Source Advance Directives Advance Dir ectives No Advance Directives available. 09/30/2013 [facility] Advance Directives Advance Dir ectives No Advance Directives available. 09/21/2013 [facility] Advance Directives Advance Dir ectives No Advance Directives available. 09/16/2013 [facility] Advance Directives Advance Dir ectives No Advance Directives available. 07/29/2013 [facility] Advance Directives Advance Dir ectives No Advance Directives available. 07/24/2013 [facility] Advance Directives Advance Dir ectives No Advance Directives available. 06/21/2013 [facility] Advance Directives Advance Dir ectives No Advance Directives available. 05/24/2013 [facility] Advance Directives Advance Dir ectives No Advance Directives available. 05/13/2013 [facility] Advance Directives Advance Dir ectives No Advance Directives available. 05/12/2013 [facility] Advance Directives Advance Dir ectives No Advance Directives available. 05/02/2013 [facility] Advance Directives Advance Dir ectives No Advance Directives available. 04/20/2013 [facility] Advance Directives Advance Dir ectives No Advance Directives available. 04/18/2013 [facility] Advance Directives Advance Dir ectives No Advance Directives available. 04/17/2013 [facility] Advance Directives Advance Dir ectives No Advance Directives available. 04/15/2013 [facility] Functional Status No Data Provided for This Section
--- OUTSIDE RECORDS SUMMARY | 2019-11-11 21:00 | XMS REPORT ---
Author Author JAQUI Shipman Organization Unknown Address Unknown Phone Care Team Providers Care Chucking Machine Set Up Operator Tool Name Role Phone Viola Shipman PP Unavailable Reason for Referral No Reason [...] 05/31/2011 * Fluzone Intramuscular Injectable (Lot #: [id number]) - Administered on: 04/20/2013 Family History * [...] * [QLH] CMP W/EGFR 04/16/2013 Routine * [QH] LIPID PANEL WITH REFLEX TO DIRECT LDL 04/16/2013 Routine * [QLH] TESTOSTERONE, FREE AND TOTAL, LC/MS/MS 04/16/2013 Routine * [QLH] PSA, TOTAL 04/16/2013 Routine * [QLH] CMP W/EGFR 09/16/2013 Routine * [QLH] GGT 09/16/2013 Routine * [QLH] HEPATITIS PANEL 09/16/2013 Routine * [QLH] TRANSFERRIN 09/16/2013 Routine * [QLH] FERRITIN 09/16/2013 Routine * Dermatology Referral 09/16/2013 Routine Advance Directives * No Advance Directives available. Encounters * AUDIT 09/16/2013 * SUSIE, Provider: FRANCISCO RICO, Status: Cl, Time: 8:30 AM 09/30/2013
--- OUTSIDE RECORDS SUMMARY | 2019-11-11 21:00 | XMS REPORT | Continuity of Care Document ---
Author Author [facility] t Organization [facility] Address [address] [place] [address] Phone Unavailable Care Team Providers Care Bereavement Coordinator Name Role Phone Andrew FINLEY PCP AMI EDWARDS P.A. Attphys Unavailable MERLYN BARBER M.D. Attphys Unavaila ble [facility], NUCLEAR Attphys Unavailable GLADIS ORTEGA M.D. Attphys Unavailable [facility], ECHO Attphys Unavailable [facility], STRESS Attphys Unavailable MANEEVESE, V KAMARI Attphys Unavailable ERNESTO KING M.D. Attphys Unavailable ROSANNE ORELLANA M.D. Attphys Unavailable STEPHON CAN Attphys Unavailable HEMATPOUR, COURTNEYASHAYAR Attphys Unavailable MIR CASTILLO M.D. Attphys Unavailable STEPHANIE RICHARDSON M.D. Attphys Unavailable HU ROMANO NP Attphys Unavailable DOTTIE RODRIGUEZ M.D. Attphys Unavailable ERNESTO TOLEDO M.D. Attphys Unavailable PAULA STEVE M.D. Attphys Unavailable Payers Payer Name Policy Type Policy Number Effective Date Expiration Date Paul Brantley [id number] 2018 00:00:00 DESI Severino [facility] Problems Condition Name Condition Details Condition Category Status Onset Date Resolution Date Last Treatment Date Treating Clinician Comments Source Never smoker Never smoker Problem Active [facility] Duration Of Encounter - Review Of Prior Records (___ m in) Duration Of Encounter - Review Of Prior Records (___ min) Problem Active [facility] History of Abnormal blood chemistry History of Abnormal blood ch emistry Problem Resolved [facility] History of anticoagulant therapy History of anticoagulant therap y Problem Resolved [facility] History of At standard risk for fall History of At standard risk for fall Problem Resolved [facility] Asthma Asthma Problem Active [facility] History of paroxysmal supraventricular tachycardia His tory of paroxysmal supraventricular tachycardia Problem Resolved [facility] History of diabetes mellitus History of diabetes mellitus Problem Re solved [facility] History of Exertional angina History of Exertional angina Problem Re solved [facility] History of rectal bleeding History of rectal bleeding Problem Resolved 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 Elevation of level of transaminase and lactic acid deh ydrogenase (LDH) Elevation of level of transaminase and lactic acid dehydrogenase (LDH) Problem Active [facility] Need for zoster vaccination Need for zoster vaccination Problem Active [facility] Weight loss, unintentional Weight loss, unintentional Problem Active [facility] Chronic pain of right knee Chronic pain of right knee Problem Active [facility] Negative depression screening Negative depression screening Problem Active [facility] Memory loss or impairment Memory loss or impairment Problem Active [facility] Inguinal hernia Inguinal hernia Problem Active [facility] History of Pleural effusion on right History of Pleural effu sheba on right Problem Resolved [facility] Dementia Dementia Problem Active [facility] S/P placement of cardiac pacemaker S/P placement of cardiac pace maker Problem Active [facility] Severe aortic stenosis Severe aortic stenosis Problem Active [facility] Status post aortic valve replacement with bioprostheti c valve Status post aortic valve replacement with bioprosthetic valve Problem Active [facility] Rectal bleeding Rectal bleeding Problem Active [facility] Ptosis of left eyelid Ptosis of left eyelid Problem Active [facility] Bilateral impacted cerumen Bilateral impacted cerumen Problem Active [facility] Decreased hearing of both ears Decreased hearing of both ears Problem Active [facility] Sensorineural hearing loss, bilateral Sensorineural hearing loss, bilateral Problem Active [facility] Closed wedge compression fracture of eig hth thoracic vertebra, initial encounter Closed wedge compression fracture of eig hth thoracic vertebra, initial encounter Problem Active [facility] Dorantes's palsy Dorantes's palsy Problem Active [facility] Thrombocytopenia Thrombocytopenia Problem Active [facility] Psoriasis Psoriasis Problem Active [facility] Vitamin B12 deficiency Vitamin B12 deficiency Problem Active [facility] Erectile dysfunction Erectile dysfunction Problem Active [facility] Iron deficiency anemia Iron deficiency anemia Problem Active [facility] Type 2 diabetes mellitus Type 2 diabetes mellitus Problem Active [facility] Claudication, intermittent Claudication, intermittent Problem Active [facility] History of Infected pacemaker, subsequent encounter Hi story of Infected pacemaker, subsequent encounter Problem Resolved [facility] Allergic rhinitis Allergic rhinitis Problem Active [facility] Obesity (BMI 30.0-34.9) Obesity (BMI 30.0-34.9) Problem Active [facility] NSVT (nonsustained ventricular tachycardia) NSVT (nons ustained ventricular tachycardia) Problem Active [facility] S/P aortic valve replacement S/P aortic valve replacement Problem Active [facility] Chest pain Chest pain [facility] CAD (coronary artery disease) CAD (coronary artery disease) Problem Active [facility] Aortic valve disease Aortic valve disease Problem Active [facility] Essential (primary) hypertension Essential (primary) hypertensio n Problem Active [facility] Hyperlipidemia, unspecified hyperlipidemia type Hyperl ipidemia, unspecified hyperlipidemia type Problem Active [facility] History of bacteremia History of bacteremia Problem Resolved [facility] Diabetic retinopathy screening Diabetic retinopathy screening Problem Active [facility] Myalgia Myalgia Problem Active [facility] Abrasion of toe of right foot, initial encounter Abras ion of toe of right foot, initial encounter [facility] Hypertension Hype rtension Active 09/30/2013 [facility] Problem Active 2013-09-30 14:47:30 Case Enciso Fatigue Fati anton Active 09/30/2013 [facility] Problem Active 2013-09-30 14:47:30 Mary Enciso Male Erectile Disorder Male Erectile Disorder Active 09/30/2013 [facility] Problem Active 2013-09-30 14:47:30 Yoshi Enciso Metabolic Tests Nonspecific Elevation Of Transaminase Levels Metabolic Tests Nonspecific Elevation Of Transaminase Levels Active 09/30/2013 [facility] Problem Active 2013-09-30 14:47:30 Yoshi Enciso Abnormal Electrocardiogram Abn ormal Electrocardiogram Active 09/30/2013 [facility] Problem Active 2013-09-30 14:47: 30 Yoshi Enciso Contusion With Intact Skin Surface Contusion With Intact Skin Surface Active 07/29/2013 [facility] Problem Active 2013-07-29 15:17:42 Yoshi Enciso Acute Upper Respiratory Infection Acute Upper Respiratory Infection Active 07/29/2013 [facility] Problem Active 2013-07-29 15:17:42 Yoshi Enciso Skin: A Rash Skin : A Rash Active 09/30/2013 [facility] Problem Active 2013-09-30 14:47:30 Case Enciso Allergies, Adverse Reactions, Alerts Allergy Name Allergy Type Status Severity Reaction(s) Onset Date Inacti ve Date Treating Clinician Comments Source Morphine Allergy to Substance Active 2018-05-05 00:00:00 [facility] Oxycodone Allergy to Substance Active 2018-05-05 00:00:00 [facility] Fentanyl Allergy to Substance Active 2018-05-05 00:00:00 [facility] Morphine Derivatives Allergy to drug (finding) Active [facility] Tracy TABS Allergy to drug (finding) Active [facility] oxycodone Allergy to drug (finding) Active [facility] Tylenol with Codeine #3 TABS Allergy to drug (finding) Active [facility] Family History Family Member Diagnosis Comments Start Date Stop Date Source Unknown Family Member Family history of Colon Cancer Family History [facility] Unknown Family Member Family history of Hypertension Family History [facility] Unknown Family Member Family history of cardiovascular disease Fami ly History [facility] Unknown Family Member Family History 2013-04-15 17:48:12 2 17:48:12 Yoshi Enciso Father Family history of Leukemia [facility] Father FH: CABG (coronary artery bypass surgery) [facility] Brother Family history of Diabetes Mellitus [facility] Brother Family history of H/O heart transplant [facility] Brother Family history of malignant neoplasm of stomach [facility] Social History Social Habit Start Date Stop Date Quantity Comments Source Social History 2013-09-30 14:47:30 2013-09-30 14:47:30 Yoshi Enciso Smoking Status Start Date Stop Date Source Never smoked tobacco (finding) [facility] Medications Ordered Medication Name Filled Medication Name Start Date Stop Da te Current Medication? Ordering Clinician Indication Dosage Frequency Signature (SIG) Comments Components Source Ferrous Sulfate 325 (65 Fe) MG Oral Tablet Ferrous Sul fate 325 (65 Fe) MG Oral Tablet 2019-10-25 00:00:00 Yes AMI JewellAYanci 1 TAKE 1 TABLET EVERY OTHER DAY [facility] Otezla 10 & 20 & 30 MG Oral Tablet Therapy Pack Otezla 10 & 20 & 30 MG Oral Tablet Therapy Pack 2019-07-19 00:00:[address] [facility] Losartan Potassium 100 MG Oral Tablet Losartan Potassium 100 MG Oral Tablet 2019-06-30 00:00:00 Yes MERLYN BARBER M.D. 1 QD TAKE 1 TABLET BY MOUTH DAILY [facility] hydroCHLOROthiazide 12.5 MG Oral Tablet hydroCHLOROthiazide 12.5 MG Oral Tablet 2019-06-30 00:00:00 Yes MERLYN BARBER M.D. TAKE 1 TABLET BY MOUTH EVERY DAY IN THE MORNING [facility] OneLance Delica Plus [id number] OneTodarnell Delica Plus [id number] G 2019-04-13 00:00:00 Yes AMI EDWARDS P.AYanci USE DIRECTED EVERY DAY [facility] Vitamin B-12 1000 MCG Sublingual Tablet Sublingual Vit ann B-12 1000 MCG Sublingual Tablet Sublingual 2019-01-13 00:00:00 Yes AMI Meraz.AYanci Dissolve 1 tablet sublingually once daily [facility] Shingrix 50 MCG Intramuscular Suspension Reconstituted Shingrix 50 MCG Intramuscular Suspension Reconstituted 2018-11-19 00:00:00 Yes AMI EDWARDS P.A. Administer at pharmacy as directed [facility] ProAir HFA 108 (90 Base) MCG/ACT Inhalation Aerosol So lution ProAir HFA 108 (90 Base) MCG/ACT Inhalation Aerosol Solution 2018-06-18 00:00:00 Ye s AMI EDWARDS P.AYanci INHALE 1 TO 2 PUFFS EVERY 4 TO [address] [facility] Clopidogrel Bisulfate 75 MG Oral Tablet Clopidogrel Bisulfat e 75 MG Oral Tablet 2018-02-21 00:00:00 Yes MERLYN BARBER M.D. 1 QD TAKE 1 TABLET BY MOUTH DAILY [facility] Atorvastatin Calcium 80 MG Oral Tablet Atorvastatin Calcium 80 MG Oral Tablet 2018-02-13 00:00:00 Yes AMI EDWARDS PYanciAYanci TAKE 1 TABLET BY MOUTH EVERY DAY [facility] OneTouch Verio In Vitro Strip OneTouch Verio In Vitro Strip 2017 00:00:00 Yes AMI Boothe CHECK BLOOD SUGAR EV LM [facility] OneEricuch Delica Lancets Fine MISC OneTouch Delica Lancets Fi ne MISC 2017-06-11 00:00:00 Yes AMI Boothe USE DIRECTED EVERY DAY [facility] Accu-Chek SmartView In Vitro Strip Accu-Chek SmartView In Vi tro Strip 2015-03-16 00:00:00 Yes JIM MATHEWS D.O. Q0.5D TEST TWICE DAILY. [facility] metFORMIN HCl - 500 MG Oral Tablet metFORMIN HCl - 500 MG Or al Tablet 2015-03-16 00:00:00 Yes AMI Boothe 1 Q0.5D TAKE 2 TABLETS BY MOUTH EVERY [address] [facility] Aspirin 81 MG Oral Tablet 2013-09-30 14:47:30 Yes (Active) Yoshi Enciso Calcipotriene 0.005 % External Cream 2013-09-16 05:00:00 Ye s ; Start Date: 09/16/2013; End Date: (Active) Yoshi Enciso Azithromycin 250 MG Oral Tablet 2013-07-24 06:00:00 Yes ; Start Date: 07/24/2013; End Date: 07/29/2013 (Active) Yoshi Enciso PredniSONE 10 MG Oral Tablet 2013-07-24 06:00:00 Yes ; Start Date: 07/24/2013; End Date: (Active) Yoshi Enciso AmLODIPine Besylate 10 MG Oral Tablet 2013-04-27 06:00:00 Y es ; Start Date: 04/27/2013; End Date: (Active) [facility] amLODIPine Besylate 10 MG Oral Tablet amLODIPine Besylate 10 MG Oral Tablet 2013-04-27 00:00:00 Yes MERLYN BARBER M.D. TAKE 1 TABLET BY MOUTH DAILY [facility] Losartan Potassium-HCTZ 100-12.5 MG Oral Tablet 2013-04-20 14:40 :17 Yes (Active) Yoshi Dave n Norvasc 5 MG Oral Tablet 2013-04-20 14:40:17 Yes (Active) Yoshi Enciso Losartan Potassium-HCTZ 100-12.5 MG Oral Tablet 2013-04-16 06:00 :00 Yes ; Start Date: 04/16/2013; End Date: (Active ) Yoshi Enciso Losartan Potassium-HCTZ 100-25 MG Oral Tablet 2013-04-16 06:00:0 0 Yes ; Start Date: 04/16/2013; End Date: (Active) Yoshi Enciso Metoprolol Succinate ER 100 MG Oral Tablet Extended Release 24 Hour 2013-04-15 17:48:12 Yes (Active) Mary Enciso AmLODIPine Besylate 5 MG Oral Tablet 2013-04-13 06:00:00 Ye s ; Start Date: 04/13/2013; End Date: (Active) Yoshi Enciso Metoprolol Succinate ER 100 MG Oral Tablet Extended Release 24 Hour Yes ; Start Date: 0; End Date: (Active) Yoshi Enciso Metoprolol Succinate ER 100 MG Oral Tablet Extended Release 24 Hour Yes ; Start Date: 0; End Date: (Active) Yoshi Enciso Aspirin 81 MG TABS Aspirin 81 MG TABS Yes VIRAL BARBER M.D. TAKE ONE TABLET BY MOUTH ONCE DAILY [facility] Fluocinonide 0.05 % External Ointment Fluocinonide 0.05 % External Ointment Yes MIR CASTILLO M.D. APPLY SPARINGLY TO scalp ONCE DA NISSA [facility] Fluocinolone Acetonide Body 0.01 % External Oil Fluoci nolone Acetonide Body 0.01 % External Oil Yes MIR CASTILLO M.D. A pply once daily to face and body [facility] Immunizations Ordered Immunization Name Filled Immunization Name Date Status Comments Source Influenza, seasonal, injectable 2019-03-26 00:00:[address] [facility] Influenza, seasonal, injectable 2019-03-26 00:00:[address] [facility] Prevnar 13 Intramuscular Suspension 2018-11-19 09:47:[address] [facility] Pneumovax 23 25 MCG/0.5ML Injection Injectable 2018-10 00:00:[address] [facility] Fluzone Quadrivalent 0.5 ML Intramuscular Suspension Prefill ed Syringe 2015-03-06 08:39:[address] [facility] Fluzone INJ 2013-04-20 08:21:00 Completed [facility] Influenza 2011-05-31 00:00:00 [facility] Tdap Unknown Completed [facility] Vital Signs Vital Name Observation Time Observation Value Comments Source Systolic blood pressure 2019-10-14 10:11:00 145 mm[Hg] [facility] Diastolic blood pressure 2019-10-14 10:11:00 80 mm[Hg] [facility] Heart Rate 2019-10-14 10:11:00 69 /min [facility] Systolic blood pressure 2019-10-14 10:09:00 148 mm[Hg] Loca tion: LUE; Position: Sitting [facility] Diastolic blood pressure 2019-10-14 10:09:00 67 mm[Hg] Loc ation: LUE; Position: Sitting [facility] Heart Rate 2019-10-14 10:09:00 74 /min [facility] Body height 2019-10-14 10:09:00 68 [in_us] [facility] Weight 2019-10-14 10:09:00 199 [lb_av] [facility] Body mass index (BMI) [Ratio] 2019-10-14 10:09:00 30.26 kg/m2 [facility] Body temperature 2019-10-14 10:09:00 97.7 [degF] Method: Temporal [facility] Respiratory rate 2019-10-14 10:09:00 16 /min [facility] Systolic blood pressure 2019-08-10 15:16:00 138 mm[Hg] Loca tion: LUE; Position: Sitting [facility] Diastolic blood pressure 2019-08-10 15:16:00 71 mm[Hg] Loc ation: LUE; Position: Sitting [facility] Body height 2019-08-10 15:16:00 68 [in_us] [facility] Weight 2019-08-10 15:16:00 196.125 [lb_av] [facility] Body mass index (BMI) [Ratio] 2019-08-10 15:16:00 29.82 kg/m2 [facility] Heart Rate 2019-08-10 15:16:00 73 /min Location: L Radial; Q uality: Normal [facility] Systolic blood pressure 2019-08-06 10:22:00 124 mm[Hg] Loca tion: LUE; Position: Sitting [facility] Diastolic blood pressure 2019-08-06 10:22:00 70 mm[Hg] Loc ation: LUE; Position: Sitting [facility] Body height 2019-08-06 10:22:00 68 [in_us] [facility] Weight 2019-08-06 10:22:00 200 [lb_av] [facility] Body mass index (BMI) [Ratio] 2019-08-06 10:22:00 30.41 kg/m2 [facility] Heart Rate 2019-08-06 10:22:00 83 /min Location: L Brachial Artery; [facility] Systolic blood pressure 2019-07-19 15:48:00 134 mm[Hg] Loca tion: RUE; Position: Sitting [facility] Diastolic blood pressure 2019-07-19 15:48:00 77 mm[Hg] Loc ation: RUE; Position: Sitting [facility] Body height 2019-07-19 15:48:00 68 [in_us] [facility] Weight 2019-07-19 15:48:00 201 [lb_av] [facility] Body mass index (BMI) [Ratio] 2019-07-19 15:48:00 30.56 kg/m2 [facility] Body temperature 2019-07-19 15:48:00 98.3 [degF] Method: Oral [facility] Heart Rate 2019-07-19 15:48:00 82 /min Location: R Brachial Artery; [facility] O2 SAT 2019-07-19 15:48:00 98 % Source: [facility] BP Systolic 2019-03-30 08:11:00 134 mm[Hg] Location: TAL; Positi on: Sitting [facility] BP Diastolic 2019-03-30 08:11:00 76 mm[Hg] Location: TAL; Positi on: Sitting [facility] Height 2019-03-30 08:11:00 68 [in_us] [facility] Weight 2019-03-30 08:11:00 202 [lb_av] [facility] Body Mass Index Calculated 2019-03-30 08:11:00 30.71 kg/m2 [facility] Temperature 2019-03-30 08:11:00 97.4 [degF] Method: Temporal [facility] Respiration Rate 2019-03-30 08:11:00 16 /min [facility] Heart Rate 2019-03-30 08:11:00 71 /min [facility] O2 SAT 2019-03-30 08:11:00 98 % [facility] BP Systolic 2019-02-05 10:50:00 154 mm[Hg] Location: ERICKE; Positi on: Sitting [facility] BP Diastolic 2019-02-05 10:50:00 84 mm[Hg] Location: ERICKE; Positi on: Sitting [facility] Heart Rate 2019-02-05 10:50:00 77 /min Location: L Radial; Q uality: Normal [facility] BP Systolic 2019-02-05 10:49:00 144 mm[Hg] Location: LUE; Positi on: Sitting [facility] BP Diastolic 2019-02-05 10:49:00 74 mm[Hg] Location: ERICKE; Positi on: Sitting [facility] Heart Rate 2019-02-05 10:49:00 77 /min Location: L Radial; Q uality: Normal [facility] Height 2019-02-05 10:49:00 68 [in_us] [facility] Weight 2019-02-05 10:49:00 202 [lb_av] [facility] Body Mass Index Calculated 2019-02-05 10:49:00 30.71 kg/m2 [facility] BP Systolic 2019-01-11 11:26:00 118 mm[Hg] Location: ERICKE; Positi on: Sitting [facility] BP Diastolic 2019-01-11 11:26:00 68 mm[Hg] Location: ERICKE; Positi on: Sitting [facility] Height 2019-01-11 11:26:00 68 [in_us] [facility] Weight 2019-01-11 11:26:00 203.25 [lb_av] [facility] Body Mass Index Calculated 2019-01-11 11:26:00 30.9 kg/m2 [facility] Temperature 2019-01-11 11:26:00 98 [degF] Method: Temporal [facility] Heart Rate 2019-01-11 11:26:00 65 /min Location: L Brachial Artery; [facility] Respiration Rate 2019-01-11 11:26:00 16 /min [facility] BP Systolic 2018-11-19 13:57:00 130 mm[Hg] Location: DELILAH [facility] BP Diastolic 2018-11-19 13:57:00 74 mm[Hg] [facility]: [facility] Height 2018-11-19 13:57:00 68 [in_us] [facility] Weight 2018-11-19 13:57:00 200 [lb_av] [facility] Body Mass Index Calculated 2018-11-19 13:57:00 30.41 kg/m2 [facility] Temperature 2018-11-19 13:57:00 98 [degF] Method: Temporal [facility] Respiration Rate 2018-11-19 13:57:00 16 /min [facility] Heart Rate 2018-11-19 13:57:00 62 /min [facility] BP Systolic 2018-08-20 08:58:00 122 mm[Hg] Location: DELILAH Positi on: Sitting [facility] BP Diastolic 2018-08-20 08:58:00 64 mm[Hg] Location: TAL; Positi on: Sitting [facility] Height 2018-08-20 08:58:00 68 [in_us] [facility] Weight 2018-08-20 08:58:00 202.25 [lb_av] [facility] Body Mass Index Calculated 2018-08-20 08:58:00 30.75 kg/m2 [facility] Temperature 2018-08-20 08:58:00 97.9 [degF] Method: Temporal [facility] Heart Rate 2018-08-20 08:58:00 67 /min [facility] Respiration Rate 2018-08-20 08:58:00 14 /min [facility] BP Systolic 2018-06-18 12:34:00 155 mm[Hg] [facility] BP Diastolic 2018-06-18 12:34:00 79 mm[Hg] [facility] Heart Rate 2018-06-18 12:34:00 80 /min [facility] O2 SAT 2018-06-18 11:59:00 99 % [facility] BP Systolic 2018-06-18 11:44:00 152 mm[Hg] [facility] BP Diastolic 2018-06-18 11:44:00 89 mm[Hg] [facility] Heart Rate 2018-06-18 11:44:00 86 /min [facility] BP Systolic 2018-06-18 11:43:00 156 mm[Hg] Location: TAL; Positi on: Sitting [facility] [facility] BP Diastolic 2018-06-18 11:43:00 89 mm[Hg] Location: ERICKE; Positi on: Sitting [facility] Heart Rate 2018-06-18 11:43:00 90 /min [facility] Height 2018-06-18 11:43:00 68 [in_us] [facility] Weight 2018-06-18 11:43:00 202 [lb_av] [facility] Body Mass Index Calculated 2018-06-18 11:43:00 30.71 kg/m2 [facility] Temperature 2018-06-18 11:43:00 98 [degF] Method: Temporal [facility] Respiration Rate 2018-06-18 11:43:00 16 /min [facility] BP Systolic 2018-06-12 09:38:00 145 mm[Hg] Location: ERICKE; Positi on: Sitting [facility] BP Diastolic 2018-06-12 09:38:00 87 mm[Hg] Location: LUE; Positi on: Sitting [facility] Height 2018-06-12 09:38:00 68 [in_us] [facility] Weight 2018-06-12 09:38:00 200 [lb_av] [facility] Body Mass Index Calculated 2018-06-12 09:38:00 30.41 kg/m2 [facility] Heart Rate 2018-06-12 09:38:00 83 /min Location: L Radial; [facility] BP Systolic 2018-05-19 11:40:00 137 mm[Hg] [facility] Diastolic 2018-05-19 11:40:00 78 mm[Hg] Position: Sitting [facility] Heart Rate 2018-05-19 11:40:00 79 /min [facility] BP Systolic 2018-05-19 11:21:00 130 mm[Hg] Location: LUE; Positi on: Sitting [facility] BP Diastolic 2018-05-19 11:21:00 69 mm[Hg] Location: LUE; Positi on: Sitting [facility] Heart Rate 2018-05-19 11:21:00 86 /min [facility] Height 2018-05-19 11:21:00 68 [in_us] [facility] Weight 2018-05-19 11:21:00 200 [lb_av] [facility] Body Mass Index Calculated 2018-05-19 11:21:00 30.41 kg/m2 [facility] Temperature 2018-05-19 11:21:00 98 [degF] Method: Temporal [facility] Respiration Rate 2018-05-19 11:21:00 16 /min [facility] BP Systolic 2018-03-19 08:49:00 149 mm[Hg] Location: LUE; Positi on: Sitting [facility] BP Diastolic 2018-03-19 08:49:00 89 mm[Hg] Location: LUE; Positi on: Sitting [facility] Heart Rate 2018-03-19 08:49:00 84 /min [facility] BP Systolic 2018-03-19 08:31:00 161 mm[Hg] Location: LUE; Positi on: Sitting [facility] BP Diastolic 2018-03-19 08:31:00 87 mm[Hg] Location: LUE; Positi on: Sitting [facility] Heart Rate 2018-03-19 08:31:00 82 /min [facility] Height 2018-03-19 08:31:00 68 [in_us] [facility] Weight 2018-03-19 08:31:00 201.5625 [lb_av] [facility] Body Mass Index Calculated 2018-03-19 08:31:00 30.65 kg/m2 [facility] Temperature 2018-03-19 08:31:00 97.9 [degF] Method: [facility]poral [facility] Respiration Rate 2018-03-19 08:31:00 16 /min [facility] BP Systolic 2018-02-24 11:52:00 142 mm[Hg] Location: LUE; Positi on: Sitting [facility] BP Diastolic 2018-02-24 11:52:00 77 mm[Hg] Location: LUE; Positi on: Sitting [facility] Height 2018-02-24 11:52:00 91 [in_us] [facility] Weight 2018-02-24 11:52:00 203.375 [lb_av] Un[facility] Body Mass Index Calculated 2018-02-24 11:52:00 17.27 kg/m2 [facility] Temperature 2018-02-24 11:52:00 98.6 [degF] Method: Oral [facility] Heart Rate 2018-02-24 11:52:00 69 /min [facility] Respiration Rate 2018-02-24 11:52:00 22 /min [facility] BP Systolic 2018-01-22 09:31:00 136 mm[Hg] Location: LUE; Positi on: Sitting [facility] BP Diastolic 2018-01-22 09:31:00 76 mm[Hg] Location: LUE; Positi on: Sitting [facility] Height 2018-01-22 09:31:00 67 [in_us] [facility] Weight 2018-01-22 09:31:00 201.125 [lb_av] Unive [facility] Body Mass Index Calculated 2018-01-22 09:31:00 31.5 kg/m2 [facility] Heart Rate 2018-01-22 09:31:00 70 /min [facility] BP Systolic 2018-01-08 10:35:00 134 mm[Hg] Location: LUE; Positi on: Sitting [facility] BP Diastolic 2018-01-08 10:35:00 75 mm[Hg] Location: LUE; Positi on: Sitting [facility] Height 2018-01-08 10:35:00 67 [in_us] [facility] Weight 2018-01-08 10:35:00 198.5 [lb_av] [facility] Body Mass Index Calculated 2018-01-08 10:35:00 31.09 kg/m2 [facility] Heart Rate 2018-01-08 10:35:00 70 /min [facility] Respiration Rate 2018-01-08 10:35:00 16 /min [facility] BP Systolic 2017-12-19 08:21:00 133 mm[Hg] Location: LUE; Positi on: Sitting [facility] BP Diastolic 2017-12-19 08:21:00 82 mm[Hg] Location: LUE; Positi on: Sitting [facility] Height 2017-12-19 08:21:00 67 [in_us] [facility] Weight 2017-12-19 08:21:00 198.0625 [lb_av] [facility] Body Mass Index Calculated 2017-12-19 08:21:00 31.02 kg/m2 [facility] Temperature 2017-12-19 08:21:00 97.3 [degF] Method: Temporal [facility] Respiration Rate 2017-12-19 08:21:00 16 /min [facility] Heart Rate 2017-12-19 08:21:00 72 /min [facility] BP Systolic 2017-12-09 11:06:00 133 mm[Hg] Location: LUE; Positi on: Sitting [facility] BP Diastolic 2017-12-09 11:06:00 75 mm[Hg] Location: LUE; Positi on: Sitting [facility] Height 2017-12-09 11:06:00 67 [in_us] [facility] Weight 2017-12-09 11:06:00 196.25 [lb_av] [facility] Body Mass Index Calculated 2017-12-09 11:06:00 30.74 kg/m2 [facility] Heart Rate 2017-12-09 11:06:00 77 /min Location: L Radial; [facility] BP Systolic 2017-11-20 07:58:00 132 mm[Hg] Location: LUE; Positi on: Sitting [facility] BP Diastolic 2017-11-20 07:58:00 66 mm[Hg] Location: LUE; Positi on: Sitting [facility] Height 2017-11-20 07:58:00 67 [in_us] [facility] Weight 2017-11-20 07:58:00 194.5 [lb_av] [facility] Body Mass Index Calculated 2017-11-20 07:58:00 30.46 kg/m2 [facility] Temperature 2017-11-20 07:58:00 97.7 [degF] Method: Temporal [facility] Respiration Rate 2017-11-20 07:58:00 16 /min [facility] Heart Rate 2017-11-20 07:58:00 62 /min [facility] BP Systolic 2017-10-30 08:35:00 147 mm[Hg] [facility] BP Diastolic 2017-10-30 08:35:00 72 mm[Hg] [facility] Heart Rate 2017-10-30 08:35:00 75 /min [facility] BP Systolic 2017-10-30 08:32:00 143 mm[Hg] Location: LUE; Positi on: Sitting [facility] BP Diastolic 2017-10-30 08:32:00 72 mm[Hg] Location: LUE; Positi on: Sitting [facility] Heart Rate 2017-10-30 08:32:00 72 /min [facility] Height 2017-10-30 08:32:00 67 [in_us] [facility] Weight 2017-10-30 08:32:00 191.5625 [lb_av] [facility] Body Mass Index Calculated 2017-10-30 08:32:00 30 kg/m2 [facility] Temperature 2017-10-30 08:32:00 97.1 [degF] Method: Temporal [facility] Respiration Rate 2017-10-30 08:32:00 16 /min [facility] BP Systolic 2017-10-28 10:38:00 145 mm[Hg] Location: LUE; Positi on: Sitting [facility] BP Diastolic 2017-10-28 10:38:00 71 mm[Hg] Location: LUE; Positi on: Sitting [facility] Heart Rate 2017-10-28 10:38:00 77 /min [facility] Height 2017-10-28 10:38:00 67 [in_us] [facility] Weight 2017-10-28 10:38:00 191.5 [lb_av] [facility] Body Mass Index Calculated 2017-10-28 10:38:00 29.99 kg/m2 [facility] Respiration Rate 2017-10-28 10:38:00 16 /min [facility] Procedures Procedure Date / Time Performed Performing Clinician Sour e [QL] HEMOGLOBIN A1c 2019-10-14 00:00:00 [facility] [QL] MICROALBUMIN, RANDOM URINE (W/CREATININE) 2019-10-14 00:00: 00 [facility] [Q] LIPID PANEL WITH REFLEX TO DIRECT LDL 2019-10-14 00:00:00 [facility] [QL] CMP W/EGFR 2019-10-14 00:00:00 [place] [facility] [QL] CBC (INCLUDES DIFF/PLT) 2019-10-14 00:00:00 [facility] [QL] FERRITIN 2019-10-14 00:00:00 [place] [facility] [QL] IRON AND TOTAL IRON BINDING CAPACITY 2019-10-14 00:00:00 [facility] [QL] CREATINE KINASE, TOTAL 2019-10-14 00:00:00 [facility] [N] Nuclear Test-Adenosine Stress Perfusion 2019-08-06 00:00:00 [facility] [QLH] CBC (INCLUDES DIFF/PLT) 2019-03-30 00:00:00 [facility] [QLH] FERRITIN 2019-03-30 00:00:00 [place] [facility] [QLH] IRON AND TOTAL IRON BINDING CAPACITY 2019-03-30 00:00:00 [facility] [QLH] VITAMIN B12 2019-03-30 00:00:00 [facility] [QLH] CMP W/EGFR 2019-03-30 00:00:00 [facility] [QLH] HEMOGLOBIN A1c 2019-03-30 00:00:00 [facility] [QLH] CBC (INCLUDES DIFF/PLT) 2019-01-13 00:00:00 [facility] [QLH] FERRITIN 2019-01-13 00:00:00 [place] [facility] [QLH] IRON AND TOTAL IRON BINDING CAPACITY 2019-01-13 00:00:00 [facility] [QLH] VITAMIN B12 2019-01-13 00:00:00 [facility] [QLH] VITAMIN B12 2018-11-19 00:00:00 [facility] [QL] TSH, 3RD GENERATION W/REFLEX TO FT4 2018-11-19 00:00:00 [facility] [QL] CBC (INCLUDES DIFF/PLT) 2018-11-19 00:00:00 [facility] [QLH] FERRITIN 2018-11-19 00:00:00 [facility] [QLH] IRON AND TOTAL IRON BINDING CAPACITY 2018-11-19 00:00:00 [facility] [[facility]] CBC (INCLUDES DIFF/PLT) 2018-08-20 00:00:00 [facility] [[facility]] IRON AND TOTAL IRON BINDING CAPACITY 2018-08-20 00:00:00 [facility] [QLH] FERRITIN 2018-08-20 00:00:00 [facility] [QL] HEMOGLOBIN A1c 2018-08-20 00:00:00 [facility] [QL] CMP W/EGFR 2018-08-20 00:00:00 [facility] [QL] LIPID PANEL 2018-08-10 00:00:00 [facility] [QL] HEMOGLOBIN A1c 2018-06-18 00:00:00 [facility] [QLH] CMP W/EGFR 2018-06-18 00:00:00 [facility] [N] 2D Echo complete, with Doppler [id number] 2018-06-12 00:00:00 [facility] [QLH] CBC (INCLUDES DIFF/PLT) 2018-05-20 00:00:00 [facility] [QLH] CBC (INCLUDES DIFF/PLT) 2018-05-19 00:00:00 [facility] Computed tomography of brain without radiopaque contrast 201 01-12-04 00:00:00 [facility] CBC (INCLUDES DIFF/PLT) 2018-04-27 00:00:00 [facility] [QLH] HEMOGLOBIN A1c 2018-03-19 00:00:00 [facility] [QLH] CMP W/EGFR 2018-03-19 00:00:00 [facility] [QLH] CBC (INCLUDES DIFF/PLT) 2018-03-19 00:00:00 [facility] [QLH] IRON AND TOTAL IRON BINDING CAPACITY 2018-03-19 00:00:00 [facility] [QLH] FERRITIN 2018-03-19 00:00:00 [facility] [place] [facility] MA Bone Density [employer] [id number] 2018-03-19 00:00:00 [facility] Hearing Aid Eval-Binaural 2018-01-22 00:00[facility]00 [facility] [N] 2D Echo complete, with Doppler [id number] 2018-01-16 00:00:00 [facility] [O] Basic Audiometry Screen 2018-01-08 00:00:00 [facility] [N] Cardiovascular Treadmill Stress Test 2017-12-09 00:00:00 [facility] [QLH] CBC (INCLUDES DIFF/PLT) 2017-11-20 00:00:00 [facility] [QLH] FERRITIN 2017-11-20 00:00:00 [facility] [QLH] IRON AND TOTAL IRON BINDING CAPACITY 2017-11-20 00:00:00 [facility] [QLH] HEMOGLOBIN A1c 2017-11-20 00:00:00 [facility] [Q] FECAL GLOBIN BY IMMUNOCHEM. (MEDICARE) 2017-10-30 00:00:00 [facility] History of Tonsillectomy With Adenoidectomy [facility] History of Cholecystectomy [facility] History of Aortic valve replacement [facility] History of Permanent pacemaker insertion [facility] Plan of Care Planned Activity Planned Date Details Comments Source Future Scheduled Test 2019-10-17 00:00:00 [QL] HEMOGLOBIN A1 c [code = [QL] HEMOGLOBIN A1c] [facility] Future Scheduled Test 2019-10-17 00:00:00 [QL] MICROALBUMIN, RANDOM URINE (W/CREATININE) [code = 33908] [facility] Future Scheduled Test 2019-10-17 00:00:00 [Q] LIPID PANEL WI TH REFLEX TO DIRECT LDL [code = [Q] LIPID PANEL WITH REFLEX TO DIRECT LDL] [facility] Future Scheduled Test 2019-10-17 00:00:00 [QL] CMP W/EGFR [c ode = [QL] CMP W/EGFR] [facility] Future Scheduled Test 2019-10-17 00:00:00 [QL] CBC (INCLUDES DIFF/PLT) [code = [QL] CBC (INCLUDES DIFF/PLT)] [facility] Future Scheduled Test 2019-10-17 00:00:00 [QL] FERRITIN [code = [QL] FERRITIN] [facility] Scheduled Test 2019-10-17 00:00:00 [QL] IRON AND TOTA L IRON BINDING CAPACITY [code = [QL] IRON AND TOTAL IRON BINDING CAPACITY] [facility] Future Scheduled Test 2019-10-17 00:00:00 [QL] HEMOGLOBIN A1 c [code = [QL] HEMOGLOBIN A1c] [facility] Future Scheduled Test 2019-10-17 00:00:00 [QL] MICROALBUMIN, RANDOM URINE (W/CREATININE) [code = 16296] [facility] Future Scheduled Test 2019-10-17 00:00:00 [Q] LIPID PANEL WI TH REFLEX TO DIRECT LDL [code = [Q] LIPID PANEL WITH REFLEX TO DIRECT LDL] [facility] Scheduled Test 2019-10-17 00:00:00 [QL] CMP W/EGFR [c ode = [QL] CMP W/EGFR] [facility] Future Scheduled Test 2019-10-17 00:00:00 [QL] CBC (INCLUDES DIFF/PLT) [code = [QL] CBC (INCLUDES DIFF/PLT)] [facility] Future Scheduled Test 2019-10-17 00:00:00 [QL] FERRITIN [code = [QL] FERRITIN] [facility] Future Scheduled Test 2019-10-17 00:00:00 [QL] IRON AND TOTA L IRON BINDING CAPACITY [code = [QL] IRON AND TOTAL IRON BINDING CAPACITY] [facility] Future Scheduled Test 2019-10-17 00:00:00 [QL] HEMOGLOBIN A1 c [code = [QL] HEMOGLOBIN A1c] [facility] Future Scheduled Test 2019-10-17 00:00:00 [QL] MICROALBUMIN, RANDOM URINE (W/CREATININE) [code = 29397] [facility] Future Scheduled Test 2019-10-17 00:00:00 [Q] LIPID PANEL WI TH REFLEX TO DIRECT LDL [code = [Q] LIPID PANEL WITH REFLEX TO DIRECT LDL] [facility] Future Scheduled Test 2019-10-17 00:00:00 [QL] CMP W/EGFR [c ode = [QL] CMP W/EGFR] [facility] Future Scheduled Test 2019-10-17 00:00:00 [QL] CBC (INCLUDES DIFF/PLT) [code = [QL] CBC (INCLUDES DIFF/PLT)] [facility] Future Scheduled Test 2019-10-17 00:00:00 [QL] FERRITIN [code = [QL] FERRITIN] [facility] Future Scheduled Test 2019-10-17 00:00:00 [QL] IRON AND TOTA L IRON BINDING CAPACITY [code = [QL] IRON AND TOTAL IRON BINDING CAPACITY] [facility] Scheduled Test 2019-10-17 00:00:00 [QL] HEMOGLOBIN A1 c [code = [QL] HEMOGLOBIN A1c] [facility] Future Scheduled Test 2019-10-17 00:00:00 [QL] MICROALBUMIN, RANDOM URINE (W/CREATININE) [code = 38152] [facility] Future Scheduled Test 2019-10-17 00:00:00 [Q] LIPID PANEL WI TH REFLEX TO DIRECT LDL [code = [Q] LIPID PANEL WITH REFLEX TO DIRECT LDL] [facility] Scheduled Test 2019-10-17 00:00:00 [QL] CMP W/EGFR [c ode = [QL] CMP W/EGFR] [facility] Future Scheduled Test 2019-10-17 00:00:00 [QL] CBC (INCLUDES DIFF/PLT) [code = [QL] CBC (INCLUDES DIFF/PLT)] [facility] Future Scheduled Test 2019-10-17 00:00:00 [QL] FERRITIN [code = [QL] FERRITIN] [facility] Future Scheduled Test 2019-10-17 00:00:00 [QL] IRON AND TOTA L IRON BINDING CAPACITY [code = [QL] IRON AND TOTAL IRON BINDING CAPACITY] [facility] Diagnostic Test Pending 2019-03-15 00:00:00 [QLH] CBC (INCLU ROBIN DIFF/PLT) [code = [QLH] CBC (INCLUDES DIFF/PLT)] [facility] Diagnostic Test Pending 2019-03-15 00:00:00 [QLH] FERRITIN [ code = [QLH] FERRITIN] [facility] Diagnostic Test Pending 2019-03-15 00:00:00 [QLH] IRON AND T OTAL IRON BINDING CAPACITY [code = [QLH] IRON AND TOTAL IRON BINDING CAPACITY] [facility] Diagnostic Test Pending 2019-03-15 00:00:00 [QLH] VITAMIN B1 2 [code = [QLH] VITAMIN B12] [facility] Diagnostic Test Pending 2019-03-15 00:00:00 [QLH] CBC (INCLU ROBIN DIFF/PLT) [code = [QLH] CBC (INCLUDES DIFF/PLT)] [facility] Diagnostic Test Pending 2019-03-15 00:00:00 [QLH] FERRITIN [ code = [QLH] FERRITIN] [facility] Diagnostic Test Pending 2019-03-15 00:00:00 [QLH] IRON AND T OTAL IRON BINDING CAPACITY [code = [QLH] IRON AND TOTAL IRON BINDING CAPACITY] [facility] Diagnostic Test Pending 2019-03-15 00:00:00 [QLH] VITAMIN B1 2 [code = [QLH] VITAMIN B12] [facility] Diagnostic Test Pending 2019-02-01 00:00:00 [N] 2D Echo comp lete, with Doppler [id number] [code = [N] 2D Echo complete, with Doppler [id number]] [facility] Diagnostic Test Pending 2019-02-01 00:00:00 [N] 2D Echo comp lete, with Doppler [id number] [code = [N] 2D Echo complete, with Doppler [id number]] [facility] Diagnostic Test Pending 2018-11-11 00:00:00 [QLH] CBC (INCLU ROBIN DIFF/PLT) [code = [QLH] CBC (INCLUDES DIFF/PLT)] [facility] Diagnostic Test Pending 2018-11-11 00:00:00 [QLH] IRON AND T OTAL IRON BINDING CAPACITY [code = [QLH] IRON AND TOTAL IRON BINDING CAPACITY] [facility] Diagnostic Test Pending 2018-11-11 00:00:00 [QLH] FERRITIN [ code = [QLH] FERRITIN] [facility] Diagnostic Test Pending 2018-11-11 00:00:00 [QLH] HEMOGLOBIN A1c [code = [QLH] HEMOGLOBIN A1c] [facility] Diagnostic Test Pending 2018-11-11 00:00:00 [QLH] CMP W/EGFR [code = [QLH] CMP W/EGFR] [facility] Diagnostic Test Pending 2018-07-21 00:00:00 [QLH] CBC (INCLU ROBIN DIFF/PLT) [code = [QLH] CBC (INCLUDES DIFF/PLT)] [facility] Diagnostic Test Pending 2018-07-21 00:00:00 [QLH] HEMOGLOBIN A1c [code = [QLH] HEMOGLOBIN A1c] [facility] Diagnostic Test Pending 2018-07-21 00:00:00 [QLH] CMP W/EGFR [code = [QLH] CMP W/EGFR] [facility] Diagnostic Test Pending 2018-06-02 00:00:00 [N] Cardiovascul ar Treadmill Stress Test [code = [N] Cardiovascular Treadmill Stress Test] [facility] Diagnostic Test Pending 2018-06-02 00:00:00 [N] Cardiovascul ar Treadmill Stress Test [code = [N] Cardiovascular Treadmill Stress Test] [facility] Diagnostic Test Pending 2018-05-17 00:00:00 [QLH] CBC (INCLU ROBIN DIFF/PLT) [code = [QLH] CBC (INCLUDES DIFF/PLT)] [facility] Diagnostic Test Pending 2018-01-16 00:00:00 [N] 2D Echo comp lete, with Doppler [id number] [code = [N] 2D Echo complete, with Doppler [id number]] [facility] Diagnostic Test Pending 2018-01-08 00:00:00 [O] Basic Audiom etry Screen [code = [O] Basic Audiometry Screen] [facility] Diagnostic Test Pending 2017-12-01 00:00:00 [QLH] CBC (INCLU ROBIN DIFF/PLT) [code = [QLH] CBC (INCLUDES DIFF/PLT)] [facility] Diagnostic Test Pending 2017-12-01 00:00:00 [QLH] FERRITIN [ code = [QLH] FERRITIN] [facility] Diagnostic Test Pending 2017-12-01 00:00:00 [QLH] IRON AND T OTAL IRON BINDING CAPACITY [code = [QLH] IRON AND TOTAL IRON BINDING CAPACITY] [facility] Diagnostic Test Pending 2017-12-01 00:00:00 [QLH] HEMOGLOBIN A1c [code = [QLH] HEMOGLOBIN A1c] [facility] Diagnostic Test Pending 2017-12-01 00:00:00 [QLH] CBC (INCLU ROBIN DIFF/PLT) [code = [QLH] CBC (INCLUDES DIFF/PLT)] [facility] Diagnostic Test Pending 2017-12-01 00:00:00 [QLH] FERRITIN [ code = [QLH] FERRITIN] [facility] Diagnostic Test Pending 2017-12-01 00:00:00 [QLH] IRON AND T OTAL IRON BINDING CAPACITY [code = [QLH] IRON AND TOTAL IRON BINDING CAPACITY] [facility] Diagnostic Test Pending 2017-12-01 00:00:00 [QLH] HEMOGLOBIN A1c [code = [QLH] HEMOGLOBIN A1c] [facility] Diagnostic Test Pending 2017-12-01 00:00:00 [QLH] CBC (INCLU ROBIN DIFF/PLT) [code = [QLH] CBC (INCLUDES DIFF/PLT)] [facility] Diagnostic Test Pending 2017-12-01 00:00:00 [QLH] FERRITIN [ code = [QLH] FERRITIN] [facility] Diagnostic Test Pending 2017-12-01 00:00:00 [QLH] IRON AND T OTAL IRON BINDING CAPACITY [code = [QLH] IRON AND TOTAL IRON BINDING CAPACITY] [facility] Diagnostic Test Pending 2017-12-01 00:00:00 [QLH] HEMOGLOBIN A1c [code = [QLH] HEMOGLOBIN A1c] [facility] Future Scheduled Test 2013-09-30 14:47:30 Plan of Care [code = 1877 6-5] [facility] Scheduled Test 2013-09-21 16:02:22 Plan of Care [code = 1877 6-5] [facility] Scheduled Test 2013-09-16 14:33:27 Plan of Care [code = 1877 6-5] [facility] Scheduled Test 2013-07-29 15:17:42 Plan of Care [code = 1877 6-5] [facility] Scheduled Test 2013-07-24 19:45:36 Plan of Care [code = 1877 6-5] [facility] Scheduled Test 2013-06-21 18:31:24 Plan of Care [code = 1877 6-5] [facility] Scheduled Test 2013-05-24 14:33:34 Plan of Care [code = 1877 6-5] [facility] Scheduled Test 2013-05-13 19:18:08 Plan of Care [code = 1877 6-5] [facility] Scheduled Test 2013-05-12 22:33:46 Plan of Care [code = 1877 6-5] [facility] Scheduled Test 2013-05-02 14:31:24 Plan of Care [code = 1877 6-5] [facility] Scheduled Test 2013-04-20 14:40:17 Plan of Care [code = 1877 6-5] [facility] Scheduled Test 2013-04-18 22:45:23 Plan of Care [code = 1877 6-5] [facility] Scheduled Test 2013-04-17 04:00:13 Plan of Care [code = 1877 6-5] [facility] Appointment 2020-04-17 10:00:00 Tl MUELLER, [facility] Future Appointment 2020-03-10 09:00:[address] [facility] Encounters Start Date/Time End Date/Time Encounter Type Admission Type [facility] Care Department Encounter ID Source 2019-10-14 10:00:00 2019-10-14 10:00:00 Appointment; CROW EDWARDS P.A. SPOONER, JOSEPH, P.A. [facility] [id number] [facility] 2019-09-07 09:40:00 2019-09-07 09:40:00 Appointment; MERLYN RAYGOZA M.D. CHARITAKIS, KONSTANTINOS, M.D. [facility], [id number] [facility] 2019-08-18 12:36:00 2019-08-18 12:36:00 Outpatient [facility] CAR [id number] [facility] 2019-08-10 15:00:00 2019-08-10 15:00:00 Appointment; MERLYN RAYGOZA M.D. CHARITAKIS, KONSTANTINOS, M.D. [facility], [id number] [facility] 2019-08-10 08:45:00 2019-08-10 08:45:00 Appointment; [place], N UCLEAR [facility], NUCLEAR [facility] [id number] [facility] 2019-08-06 10:20:00 2019-08-06 10:20:00 Appointment; MERLYN RAYGOZA M.D. CHARITAKIS, KONSTANTINOS, M.D. [facility], [id number] [facility] 2019-07-19 15:45:00 2019-07-19 15:45:00 Appointment; GLADIS ORTEGA M.D. JAYSWAL, MALAY, M.D. [facility] [id number] [facility] 2019-03-30 08:15:00 2019-03-30 08:15:00 Appointment; CROW EDWARDS P.A. SPOONER, JOSEPH PDayan [facility] [id number] [facility] 2019-02-05 11:20:00 2019-02-05 11:20:00 Appointment; MERLYN RAYGOZA M.D. CHARITAKIS, KONSTANTINOS, M.D. [facility], [id number] [facility] 2019-02-05 10:00:00 2019-02-05 10:00:00 Appointment; [place], E CHO [facility], [facility] [id number] [facility] 2019-01-11 11:30:00 2019-01-11 11:30:00 Appointment; CROW EDWARDS P.A. SPOONER, JOSEPH PYanciAYanci [facility] [id number] [facility] 2018-11-19 14:15:00 2018-11-19 14:15:00 Appointment; CROW EDWARDS P.A. SPOONER, JOSEPH, P.A. U[facility] [id number] [facility] 2018-08-20 08:45:00 2018-08-20 08:45:00 Appointment; CROW EDWARDS P.A. SPOONER, JOSEPH, P.A. UTP [facility] [id number] [facility] 2018-06-18 11:30:00 2018-06-18 11:30:00 Appointment; CROW EDWARDS P.A. SPOONER, JOSEPH, P.A. UTP [facility] [id number] [facility] 2018-06-12 10:00:00 2018-06-12 10:00:00 Appointment; MERLYN RAYGOZA M.D. CHARITAKIS, KONSTANTINOS, M.D. [facility] [id number] [facility] 2018-06-12 09:00:00 2018-06-12 09:00:00 Appointment; [facility] S [facility], STRESS [facility] [id number] [facility] 2018-05-19 11:30:00 2018-05-19 11:30:00 Appointment; CROW EDWARDS P.A. SPOONER, JOSEPH, P.A. UTP [facility] [id number] [facility] 2018-05-05 18:42:00 2018-05-06 01:09:00 Departed Emergency Room 1 [facility] [id number] [facility] 2018-04-21 10:45:00 2018-04-21 10:45:00 Appointment; CROW EDWARDS P.A. SPOONER, JOSEPH, P.A. UTP [facility] [id number] [facility] 2018-03-20 08:15:00 2018-03-20 08:15:00 Appointment; GRACE, CROWTl Anderson JOSEPH, P.A. [facility] [id number] [facility] 2018-03-19 08:15:00 2018-03-19 08:15:00 Appointment; CROW EDWARDS P.A. SPOONER, JOSEPH, P.A. [facility] [id number] [facility] 2018-03-19 08:15:00 2018-03-19 08:15:00 Appointment; CROW EDWARDS P.A. SPOONER, JOSEPH, P.A. [facility] [id number] [facility] 2018-02-24 12:20:00 2018-02-24 12:20:00 Appointment; MERLYN RAYGOZA M.D. CHARITAKIS, KONSTANTINOS, M.D. [facility] ulti-Specialty [id number] [facility] 2018-02-24 11:00:00 2018-02-24 11:00:00 Appointment; ELOISA-MS, E DORA [facility], ECHO [facility] [id number] [facility] 2018-01-22 09:30:00 2018-01-22 09:30:00 Appointment; ERNESTO KING M.D. BYRD, MICHAEL, M.D. [facility] [id number] [facility] 2018-01-16 09:30:00 2018-01-16 09:30:00 Appointment; ROSANNE ORELLANA M.D. SHARMA, SAUMYA, M.D. [facility] [id number] [facility] 2018-01-12 09:00:00 2018-01-12 09:00:00 Appointment; TAMRA CAN KIMBERLY [facility] Otorhinolaryngology - [facility] [id number] [facility] 2018-01-08 10:15:00 2018-01-08 10:15:00 Appointment; ERNESTO KING M.D. BYRD, MICHAEL, M.D. [facility] [id number] [facility] 2017-12-19 08:30:00 2017-12-19 08:30:00 Appointment; CROW EDWARDS P.A. SPOONER, JOSEPH, P.A. UTP [facility] [id number] [facility] 2017-12-16 09:15:00 2017-12-16 09:15:00 Appointment; LIZA WILLIS BARBER VERONICA DE JESUSIrving [facility] [id number] [facility] 2017-12-09 11:20:00 2017-12-09 11:20:00 Appointment; MERLYN RAYGOZA M.D. CHARITAKIS, KONSTANTINOS, M.D. [facility] [id number] [facility] 2017-11-20 08:00:00 2017-11-20 08:00:00 Appointment; CROW EDWARDS P.A. SPOONER, JOSEPH, P.A. UTP [facility] [id number] [facility] 2017-11-04 09:15:00 2017-11-04 09:15:00 Appointment; WILLIS DE JESUSPEREZ VERONICAIrving [facility] UTP [id number] [facility] 2017-10-30 08:45:00 2017-10-30 08:45:00 Appointment; CROW EDWARDS P.A. SPOONER, JOSEPH, P.A. [facility] [id number] [facility] 2017-10-28 10:20:00 2017-10-28 10:20:00 Appointment; MERLYN RAYGOZA M.D. CHARITAKIS, KONSTANTINOS, M.D. [facility] UTP [id number] [facility] 2017-09-08 09:00:00 2017-09-08 09:00:00 Appointment; MIR CASTILLO M .D. BAI, KRISTY, M.D. [facility] UTP [id number] [facility] 2017-08-20 13:20:00 2017-08-20 13:20:00 Appointment; MERLYN RAYGOZA M.D. CHARITAKIS, KONSTANTINOS, M.D. [facility] [id number] [facility] 2017-08-07 13:00:00 2017-08-07 13:00:00 Appointment; MIR CASTILLO M .D. BAI, KRISTY, M.D. [facility] UTP [id number] [facility] 2017-08-01 15:00:00 2017-08-01 15:00:00 Appointment; REA RICHARDSON M.D. [place]ON, HUBERT, M.D. UTP UTP [id number] [facility] 2017-07-23 18:20:00 2017-07-23 18:20:00 Appointment; MERLYN RAYGOZA M.D. CHARITAKIS, KONSTANTINOS, M.D. [facility] UTP [id number] [facility] 2017-07-18 14:30:00 2017-07-18 14:30:00 Appointment; ROSANNE ORELLANA M.D. SHARMA, SAUMYA, M.D. [facility] UTP [id number] [facility] 2017-07-17 13:30:00 2017-07-17 13:30:00 Appointment; HU HUDDLESTON NP TEJADA-FOSTER, NORMA, NP [facility] UTP [id number] [facility] 2017-07-16 12:15:00 2017-07-16 12:15:00 Appointment; DOTTIE RODRIGUEZ M.D. NGUYEN, TUYEN, M.D. [facility] Cardiothoracic and Vascular Surgery [id number] [facility] 2017-06-11 09:00:00 2017-06-11 09:00:00 Appointment; MIR CASTILLO M .D. BAI, KRISTY, M.D. [facility] UTP [id number] [facility] 2017-06-10 13:00:00 2017-06-10 13:00:00 Appointment; MERLYN RAYGOZA M.D. CHARITAKIS, KONSTANTINOS, M.D. [facility] UTP [id number] [facility] 2017-06-10 10:00:00 2017-06-10 10:00:00 Appointment; Kraig JACKSON ECHO UTP UTP [id number] [facility] 2017-06-10 08:15:00 2017-06-10 08:15:00 Appointment; [place]-MS, N UCLEAR [facility], NUCLEAR UTP UTP [id number] [facility] 2017-06-06 10:00:00 2017-06-06 10:00:00 Appointment; YANCY TOLEDO M.D. TRAHAN, MICHAEL, M.D. UTP U[address] [id number] [facility] 2017 10:20:00 2017 10:20:00 Appointment; MERLYN RAYGOZA M.D. CHARITAKIS, KONSTANTINOS, M.D. UTP [facility]TP [id number] [facility] 2017-05-28 13:15:00 2017-05-28 13:15:00 Appointment; MIR CASTILLO M .D. BAI, KRISTY, M.D. UTP UTP [id number] [facility] 2016-04-27 12:15:00 2016-04-27 12:15:00 Appointment; REA RICHARDSON M.D. WILLISTON, HUBERT, M.D. UTP UTP [id number] [facility] 2016-02-16 10:40:00 2016-02-16 10:40:00 Appointment; MERLYN RAYGOZA M.D. CHARITAKIS, KONSTANTINOS, M.D. [facility]TP [facility]TP [id number] [facility] 2015-11-23 13:00:00 2015-11-23 13:00:00 Appointment; PAULA STEVE M.D. HUANG, EDDIE, M.D. UTP U[address] [id number] [facility] 2015-11-17 10:20:00 2015-11-17 10:20:00 Appointment; MERLYN RAYGOZA M.D. CHARITAKIS, KONSTANTINOS, M.D. UTP UTP [id number] [facility] 2015-11-10 08:00:00 2015-11-10 08:00:00 Appointment; MERLYN RAYGOZA M.D. CHARITAKIS, KONSTANTINOS, M.D. UTP UTP [id number] [facility] 2013-09-30 09:47:30 2013-09-30 09:47:30 Outpatient MHIE MHIE [id number] 2013-09-21 11:02:23 2013-09-21 11:02:22 Outpatient MHIE MHIE [id number] 2013-09-16 09:33:27 2013-09-16 09:33:27 Outpatient MHIE MHIE [id number] 2013-07-29 09:17:43 2013-07-29 09:17:42 Outpatient MHIE MHIE [id number] 2013-07-24 13:45:37 2013-07-24 13:45:36 Outpatient MHIE MHIE [id number] 2013-06-21 12:31:25 2013-06-21 12:31:24 Outpatient MHIE MHIE [id number] 2013-05-24 08:33:35 2013-05-24 08:33:34 Outpatient MHIE MHIE [id number] 2013-05-13 13:18:09 2013-05-13 13:18:08 Outpatient MHIE MHIE [id number] 2013-05-12 16:33:47 2013-05-12 16:33:46 Outpatient MHIE MHIE [id number] 2013-05-02 08:31:25 2013-05-02 08:31:24 Outpatient MHIE MHIE [id number] 2013-04-20 08:40:18 2013-04-20 08:40:17 Outpatient MHIE MHIE [id number] 2013-04-18 16:45:23 2013-04-18 16:45:23 Outpatient MHIE MHIE [id number] 2013-04-16 22:00:14 2013-04-16 22:00:13 Outpatient MHIE MHIE [id number] 2013-04-15 11:48:12 2013-04-15 11:48:12 Outpatient MHIE MHIE [id number] Results Test Description Test Time Test Comments Results Result Comments Source [Q] LIPID PANEL WITH REFLEX TO DIRECT LDL 2019-10-22 09:07:0 0 Test Item CHOLESTEROL, TOTAL; Normal (test code = 2093-3) 97 mg/dl <200 N HDL CHOLESTEROL; Below Low Threshold (test code = 2085-9) 39 mg/dl > OR = 40 TRIGLYCERIDES; Above High Threshold (test code = 2571-8) 204 mg/dl <150 If a non-fasting specimen was collected, considerrepeat triglyceride testing on a fasting specimenif clinically indicated. Samantha et al. J. of Clin. Lipidol. 2015;9:129-169. LDL-CHOLESTEROL; Normal (test code = 21782-0) 31 {MG/DL NATALIA} N Reference range: <100 Desirable range <100 mg/dL for primary prevention; <70 mg/dL for patients with CHD or diabetic patients with > or = 2 CHD risk factors. LDL-C is now calculated using the Paulino-Lan calculation, which is a validated novel method providing better accuracy than the Friedewald equation in the estimation of LDL-C. Paulino SS et al. JACQUI. 2013;310(19): 3942-4412 (http ://[employer]/faq/AGT854) CHOL/HDLC RATIO (test code = CHOL/HDLC RATIO) 2.5 {CALC} <5.0 N NON HDL CHOLESTEROL (test code = NON HDL CHOLESTEROL) 58 {MG/DL CA L} <130 N For patients with diabetes plus 1 major ASCVD risk factor, treating to a non-HDL-C goal of <100 mg/dL (LDL-C of <70 mg/dL) is considered a therapeutic option. [facility][QL] MICROALBUMIN, RANDOM URINE (W/CREATININE) 2019-10-22 09:07:00* Test Item Value Reference Range Interpretation Comments CREATININE, RANDOM URINE (test code = CREATININE, RANDOM URI NE) 256 mg/dl 20-320 N MICROALBUMIN (test code = MICROALBUMIN) 2.0 mg/dl N Reference RangeNot established MICROALBUMIN/CREATININE RATIO, RANDOM UR INE (test code = MICROALBUMIN/CREATININE RATIO, RANDOM URINE) 8 {MCG/MG CRE} <30 N The ADA de fines abnormalities in albuminexcretion as follows: Category Result (mcg/mg creatinine) Normal <30Microalbuminuria 30-299 Clinical albuminuria > OR = 300 The ADA recommends that at least two of threespecimens collected within a 3-6 month period beabnormal before considering a patient to bewithin a diagnostic category. [facility][QL] IRON AND TOTAL IRON BINDING CAPACITY 2019-10-22 09:07:00* Test Item Value Reference Range Interpretation Comments IRON, TOTAL (test code = IRON, TOTAL) 46 {mcg/dl} 50-180 IRON BINDING CAPACITY (test code = IRON BINDING CAPACITY) 37 9 {mcg/dL ca} 250-425 N % SATURATION (test code = % SATURATION) 12 {% CALC} 20-48 [facility][QL] CMP [id number] 09:07:00* Test Item Value Reference Range Interpretation Comments GLUCOSE; Above High Threshold (test code = 1547-9) 127 mg/dl 65- 99 Fasting reference interval For someone without known diabetes, a glucosevalue >125 mg/dL indicates that they may havediabetes and this should be confirmed with afollow- up test. UREA NITROGEN (BUN) (test code = UREA NITROGEN (BUN)) 16 mg/dl 7-25 N CREATININE (test code = CREATININE) 0.88 mg/dl 0.70-1.18 N For patients >49 years of age, the reference limitfor Creatinine is approximately 13% higher for peopleidentified as -Libyan. eGFR NON- (test code = eGFR NON-DONNELL N MAURITANIAN) 85 {ML/MIN/1.7} > OR = 60 N eGFR (test code = eGFR ) 98 {ML/MIN/1.7} > OR = 60 N BUN/CREATININE RATIO (test code = BUN/CREATININE RATIO) NOT APPLICA BLE 6-22 SODIUM (test code = SODIUM) 142 mmol/L 135-146 N POTASSIUM (test code = POTASSIUM) 4.3 mmol/L 3.5-5.3 N CHLORIDE (test code = CHLORIDE) 105 mmol/L 98-110 N CARBON DIOXIDE (test code = CARBON DIOXIDE) 27 mmol/L 20-32 N CALCIUM (test code = CALCIUM) 9.8 mg/dl 8.6-10.3 N PROTEIN, TOTAL (test code = PROTEIN, TOTAL) 7.4 g/dl 6.1-8.1 N ALBUMIN (test code = ALBUMIN) 4.3 g/dl 3.6-5.1 N GLOBULIN (test code = GLOBULIN) 3.1 {G/DL CALC} 1.9-3.7 N ALBUMIN/GLOBULIN RATIO (test code = ALBUMIN/GLOBULIN RATIO) 1.4 {CALC} 1.0-2.5 N BILIRUBIN, TOTAL; Normal (test code = 28906-3) 1.1 mg/dl 0.2-1.2 N ALKALINE PHSPHATASE (test code = ALKALINE PHSPHATASE) 58 u/l 35-144 N AST; Normal (test code = 1916-6) 22 u/l 10-35 N ALT; Normal (test code = 1742-6) 31 u/l 9-46 N [facility][QL] CBC (INCLUDES DIFF/PLT)2019-10-22 09:07:00* Test Item Value Reference Range Interpretation Comments WHITE BLOOD CELL COUNT (test code = WHITE BLOOD CELL COUNT) 7.6 {Thousand/u} 3.8-10.8 N RED BLOOD CELL COUNT (test code = RED BLOOD CELL COUNT) 4.55 {Million/uL} 4.20-5.80 N HEMAGLOBIN; Below Low Threshold (test code = 07355-7) 12.9 g/dl 13.2-17.1 HEMATOCRIT; Normal (test code = 4544-3) 39.9 % 38.5-50.0 N MCV; Normal (test code = 787-2) 87.7 fL 80.0-100.0 N MCHC; Normal (test code = 42029-5) 32.3 g/dl 32.0-36.0 N RDW; Normal (test code = 788-0) 13.7 % 11.0-15.0 N PLATELET COUNT; Normal (test code = 777-3) 166 {Thousand/u} 140-400 N MPV; Normal (test code = 29701-6) 11.8 fL 7.5-12.5 N ABSOLUTE NEUTROPHILS (test code = ABSOLUTE NEUTROPHILS) 5480 {cells/uL} 4779-1232 N ABSOLUTE LYMPHOCYTES (test code = ABSOLUTE LYMPHOCYTES) 1353 {cells/uL} 850-3900 N ABSOLUTE MONOCYTES (test code = ABSOLUTE MONOCYTES) 608 {cells/uL} 200-950 N ABSOLUTE EOSINOPHILS (test code = ABSOLUTE EOSINOPHILS) 129 {cells/ uL} 15-500 N ABSOLUTE BASOPHILS (test code = ABSOLUTE BASOPHILS) 30 {cells/uL} 0 -200 N NEUTROPHILS (test code = NEUTROPHILS) 72.1 % N LYMPHOCYTES (test code = LYMPHOCYTES) 17.8 % N MONOCYTES; Normal (test code = 75445-9) 8.0 % N EOSINOPHILS; Normal (test code = 70899-5) 1.7 % N BASOPHILS; Normal (test code = 71916-8) 0.4 % N [facility][QL] [id number] 09:07:00* Test Item Value Reference Range Interpretation Comments FERRITIN (test code = FERRITIN) 9 ng/ml 24-380 [facility][QL] HEMOGLOBIN [id number] 09:07:00* Test Item Value Reference Range Interpretation Comments HEMOGLOBIN A1c; Above High Threshold (test code = 4548-4) 7.1 {% of total} <5.7 For someone without known diabetes, a he moglobin S7mggcgn of 6.5% or greater indicates that they [...] A1c for diagnosis of diabetes for children. [facility][O] Hemoglobin A1c (in office)2019-07-19 16:05:28 * Test Item Value Reference Range Interpretation Comments HEMOGLOBIN A1c (test code = 4548-4) 6.8% [facility] views [id number] 08:52:00EXAM: XR CHEST 2 VIEWSDATE: 03/30/2019 8:52 CDTINDICATION: - Acute bacterial br onchitisCOMPARISON: 10/10/2017TECHNIQUE: PA and lateral chest radiographsFINDING S:Lines, tubes and hardware: None. The right subclavian line catheter seen in th eprior study has been removed. Postoperative changes are stable in the midsternu m.Lungs and pleura: No pulmonary or pleural based abnormality is identified. Nop neumothorax.Heart and mediastinum: Heart is normal size for technique. Other med iastinalcontours are normal. Bones: Spondylosis and curvature of the thoracolumb ar spine.IMPRESSION: No acute cardiopulmonary abnormality.--Read by: Bria Mcrae MDDictated Date/time: 03/30/19 09:24Electronically Signed by: Mando Mcrae MD 03/30/1909:27FINAL REPORTUnEn[facility][O] Influenza A and B, Rapid Method (In Office)2019-03-30 08:44:00* Test Item Value Reference Range Interpretation Comments INFLUENZA A & B Rapid (test code = INFLUENZA A & B Rapid) neg N [facility][O] Streptococcus Test Rapid (In Office)2019-03-30 08:43:00* Test Item Value Reference Range Interpretation Comments Group A Strep Screen; Normal (test code = 99204-4) neg N [facility]] IRON AND TOTAL IRON BINDING CAPACITY 2019-01-11 11:58:00* Test Item Value Reference Range Interpretation Comments IRON, TOTAL (test code = IRON, TOTAL) 65 {mcg/dl} 50-180 N IRON BINDING CAPACITY (test code = IRON BINDING CAPACITY) 37 8 {mcg/dL ca} 250-425 N % SATURATION (test code = % SATURATION) 17 {% CALC} 20-48 [facility]] CBC (INCLUDES DIFF/PLT)2019-01-11 11:58:00* Test Item Value Reference Range Interpretation Comments WHITE BLOOD CELL COUNT (test code = WHITE BLOOD CELL COUNT) 6.3 {Thousand/u} 3.8-10.8 N RED BLOOD CELL COUNT (test code = RED BLOOD CELL COUNT) 4.39 {Million/uL} 4.20-5.80 N HEMAGLOBIN; Below Low Threshold (test code = 04756-0) 12.5 g/dl 13.2-17.1 HEMATOCRIT; Below Low Threshold (test code = 4544-3) 38.2 % 3 8.5-50.0 MCV; Normal (test code = 787-2) 87.0 fL 80.0-100.0 N MCHC; Normal (test code = 73514-1) 32.7 g/dl 32.0-36.0 N RDW; Normal (test code = 788-0) 13.9 % 11.0-15.0 N PLATELET COUNT; Normal (test code = 777-3) 147 {Thousand/u} 140-400 N MPV; Normal (test code = 88179-1) 11.7 fL 7.5-12.5 N ABSOLUTE NEUTROPHILS (test code = ABSOLUTE NEUTROPHILS) 4442 {cells/uL} 9215-9430 N ABSOLUTE LYMPHOCYTES (test code = ABSOLUTE LYMPHOCYTES) 1134 {cells/uL} 850-3900 N ABSOLUTE MONOCYTES (test code = ABSOLUTE MONOCYTES) 517 {cells/uL} 200-950 N ABSOLUTE EOSINOPHILS (test code = ABSOLUTE EOSINOPHILS) 158 {cells/ uL} 15-500 N ABSOLUTE BASOPHILS (test code = ABSOLUTE BASOPHILS) 50 {cells/uL} 0 -200 N NEUTROPHILS (test code = NEUTROPHILS) 70.5 % N LYMPHOCYTES (test code = LYMPHOCYTES) 18.0 % N MONOCYTES; Normal (test code = 26405-2) 8.2 % N EOSINOPHILS; Normal (test code = 75590-6) 2.5 % N BASOPHILS; Normal (test code = 84045-3) 0.8 % N [facility]] [id number] 11:58:00* Test Item Value Reference Range Interpretation Comments FERRITIN (test code = FERRITIN) 12 ng/ml 24-380 [facility]] VITAMIN [id number] 11:58:00* Test Item Value Reference Range Interpretation Comments VITAMIN B12 (test code = VITAMIN B12) 308 pg/ml 200-1100 N Please Note: Although the reference range for [id number] is 200-1100 pg/mL, it has been reported that between5 and 10% of patients with values between 200 and 400pg/mL may experience neuropsychiatric and hematologicabnormalities due to occult B12 deficiency; less than 1%of patients with values above 400 pg/mL will have symptoms. [facility]] TSH, 3RD GENERATION W/REFLEX TO FT4 2019-01-11 11:58:00* Test Item Value Reference Range Interpretation Comments TSH, 3RD GENERATION W/REFLEX TO FT4 (jose t code = TSH, 3RD GENERATION W/REFLEX TO FT4) 2.12 {MIU/L} 0.40-4.[address] [facility][] Hemoglobin A1c (in office)2018-11-19 14:06:00 * Test Item Value Reference Range Interpretation Comments HEMOGLOBIN A1c; Abnormal (test code = 4548-4) 7.0 A [facility]] LIPID [id number] 08:23:00* Test Item Value Reference Range Interpretation Comments CHOLESTEROL, TOTAL; Normal (test code = 2093-3) 101 mg/dl <200 N HDL CHOLESTEROL; Below Low Threshold (test code = 2085-9) 39 mg/dl >40 TRIGLYCERIDES; Above High Threshold (test code = 2571-8) 182 mg/dl <150 LDL-CHOLESTEROL; Normal (test code = 67840-1) 36 {MG/DL NATALIA} N Reference range: <100 Desirable range <100 mg/dL for primary prevention; <70 mg/dL for patients with CHD or diabetic patients with > or = 2 CHD risk factors. LDL-C is now calculated using the Alirio calculation, which is a validated novel method providing better accuracy than the Friedewald equation in the estimation of LDL-C. Paulino SS et al. JACQUI. 2013;310(19): 9111-8009 (http ://education.[employer]/faq/JQR960) CHOL/HDLC RATIO (test code = CHOL/HDLC RATIO) 2.6 {CALC} <5.0 N NON HDL CHOLESTEROL (test code = NON HDL CHOLESTEROL) 62 {MG/DL CA L} <130 N For patients with diabetes plus 1 major ASCVD risk factor, treating to a non-HDL-C goal of <100 mg/dL (LDL-C of <70 mg/dL) is considered a therapeutic option. [facility]] CMP [id number] 08:23:00* Test Item Value Reference Range Interpretation Comments GLUCOSE; Above High Threshold (test code = 1547-9) 122 mg/dl 65- 99 Fasting reference interval For someone without known diabetes, a glucose valuebetween 100 and 125 mg/dL is consistent withprediabetes and should be confirmed with afollow-up test. UREA NITROGEN (BUN) (test code = UREA NITROGEN (BUN)) 15 mg/dl 7-25 N CREATININE (test code = CREATININE) 0.74 mg/dl 0.70-1.18 N For patients >49 years of age, the reference limitfor Creatinine is approximately 13% higher for peopleidentified as -[place]. eGFR NON- (test code = eGFR NON-DONNELL N MAURITANIAN) 92 {ML/MIN/1.7} > OR = 60 N eGFR (test code = eGFR ) 10 6 {ML/MIN/1.7} > OR = 60 N BUN/CREATININE RATIO (test code = BUN/CREATININE RATIO) NOT APPLICA BLE 6-22 SODIUM (test code = SODIUM) 142 mmol/L 135-146 N POTASSIUM (test code = POTASSIUM) 3.7 mmol/L 3.5-5.3 N CHLORIDE (test code = CHLORIDE) 105 mmol/L 98-110 N CARBON DIOXIDE (test code = CARBON DIOXIDE) 29 mmol/L 20-32 N CALCIUM (test code = CALCIUM) 9.3 mg/dl 8.6-10.3 N PROTEIN, TOTAL (test code = PROTEIN, TOTAL) 7.1 g/dl 6.1-8.1 N ALBUMIN (test code = ALBUMIN) 4.3 g/dl 3.6-5.1 N GLOBULIN (test code = GLOBULIN) 2.8 {G/DL CALC} 1.9-3.7 N ALBUMIN/GLOBULIN RATIO (test code = ALBUMIN/GLOBULIN RATIO) 1.5 {CALC} 1.0-2.5 N BILIRUBIN, TOTAL; Normal (test code = 84517-5) 1.1 mg/dl 0.2-1.2 N ALKALINE PHSPHATASE (test code = ALKALINE PHSPHATASE) 64 u/l 40-115 N AST; Normal (test code = 1916-6) 28 u/l 10-35 N ALT; Normal (test code = 1742-6) 40 u/l 9-[address] [facility]] CBC (INCLUDES DIFF/PLT)2018-08-11 08:23:00* Test Item Value Reference Range Interpretation Comments WHITE BLOOD CELL COUNT (test code = WHITE BLOOD CELL COUNT) 6.1 {Thousand/u} 3.8-10.8 N RED BLOOD CELL COUNT (test code = RED BLOOD CELL COUNT) 4.54 {Million/uL} 4.20-5.80 N HEMAGLOBIN; Below Low Threshold (test code = 20470-1) 13.1 g/dl 13.2-17.1 HEMATOCRIT; Normal (test code = 4544-3) 39.9 % 38.5-50.0 N MCV; Normal (test code = 787-2) 87.9 fL 80.0-100.0 N MCHC; Normal (test code = 05601-5) 32.8 g/dl 32.0-36.0 N RDW; Normal (test code = 788-0) 13.1 % 11.0-15.0 N PLATELET COUNT; Below Low Threshold (test code = 777-3) 137 {Thousand/u} 140-400 MPV; Normal (test code = 67852-9) 11.8 fL 7.5-12.5 N ABSOLUTE NEUTROPHILS (test code = ABSOLUTE NEUTROPHILS) 4093 {cells/uL} 0040-1838 N ABSOLUTE LYMPHOCYTES (test code = ABSOLUTE LYMPHOCYTES) 1214 {cells/uL} 850-3900 N ABSOLUTE MONOCYTES (test code = ABSOLUTE MONOCYTES) 549 {cells/uL} 200-950 N ABSOLUTE EOSINOPHILS (test code = ABSOLUTE EOSINOPHILS) 201 {cells/ uL} 15-500 N ABSOLUTE BASOPHILS (test code = ABSOLUTE BASOPHILS) 43 {cells/uL} 0 -200 N NEUTROPHILS (test code = NEUTROPHILS) 67.1 % N LYMPHOCYTES (test code = LYMPHOCYTES) 19.9 % N MONOCYTES; Normal (test code = 33848-3) 9.0 % N EOSINOPHILS; Normal (test code = 43229-0) 3.3 % N BASOPHILS; Normal (test code = 40069-1) 0.7 % N [facility]] HEMOGLOBIN [id number] 08:23:00* Test Item Value Reference Range Interpretation Comments HEMOGLOBIN A1c; Above High Threshold (test code = 4548-4) 7.0 {% of total} <5.7 For someone without known diabetes, a he [facility] [place]7vv[place] of 6.5% or greater indicates that they [...] A1c for diagnosis of diabetes for children. [facility]] CBC (INCLUDES DIFF/PLT)2018-05-19 12:18:00* Test Item Value Reference Range Interpretation Comments WHITE BLOOD CELL COUNT (test code = WHITE BLOOD CELL COUNT) 8.1 {Thousand/u} 3.8-10.8 N RED BLOOD CELL COUNT (test code = RED BLOOD CELL COUNT) 4.59 {Million/uL} 4.20-5.80 N HEMAGLOBIN; Normal (test code = 83403-6) 13.8 g/dl 13.2-17.1 N HEMATOCRIT; Normal (test code = 4544-3) 40.6 % 38.5-50.0 N MCV; Normal (test code = 787-2) 88.5 fL 80.0-100.0 N MCHC; Normal (test code = 59788-5) 34.0 g/dl 32.0-36.0 N RDW; Normal (test code = 788-0) 13.6 % 11.0-15.0 N PLATELET COUNT; Below Low Threshold (test code = 777-3) 133 {Thousand/u} 140-400 MPV; Normal (test code = 04758-8) 11.6 fL 7.5-12.5 N ABSOLUTE NEUTROPHILS (test code = ABSOLUTE NEUTROPHILS) 6091 {cells/uL} 7743-5307 N ABSOLUTE LYMPHOCYTES (test code = ABSOLUTE LYMPHOCYTES) 1264 {cells/uL} 850-3900 N ABSOLUTE MONOCYTES (test code = ABSOLUTE MONOCYTES) 599 {cells/uL} 200-950 N ABSOLUTE EOSINOPHILS (test code = ABSOLUTE EOSINOPHILS) 97 {cells/u L} 15-500 N ABSOLUTE BASOPHILS (test code = ABSOLUTE BASOPHILS) 49 {cells/uL} 0 -200 N NEUTROPHILS (test code = NEUTROPHILS) 75.2 % N LYMPHOCYTES (test code = LYMPHOCYTES) 15.6 % N MONOCYTES; Normal (test code = 82433-6) 7.4 % N EOSINOPHILS; Normal (test code = 56599-1) 1.2 % N BASOPHILS; Normal (test code = 39126-3) 0.6 % N [facility] BRAIN [id number] 20:46:00 [place] [address] Patient Name: JAQUI JARVIS MR #: [id number] : 1945 Age/Sex: 72/M Req #: [id number] Adm Physician: Ordered by: ERNESTO JUAREZ MD Report #: [id number] Location: Room/Bed: Procedure: 1204 -0026 CT/CT BRAIN WO Exam Date: Exam Time: REPORT STATUS: Signed EXAMINATION: Head CT without contrast. HISTORY:Numbness and right facial droop. CO MPARISON:None. TECHNIQUE: Multidetector axial images were obtained from the fo ramen magnum to the vertex without contrast. The images were reconstructed usi ng brain and bone algorithms. Thin section brain images were reformatted into coronal and sagittal planes. Dose modulation, iterative reconstruction, and /or weight based adjustment of the mA/kV was utilized to reduce the radiation dose to as low as reasonably achievable. Intravenous contrast: None IMAGE QUALITY: Acceptable. FINDINGS: Skull/scalp: No lytic or blast ic. lesions. No surgical changes. Parenchyma: No abnormal density. No a cute hemorrhage, mass or acute major vascular territorial infarct. Arterie s: No density suggestive of thrombosis. Mild atherosclerotic calcification in bilateral carotid siphon. Dural sinuses: No abnormal density suggestive of thrombosis. Ventricles: No hydrocephalus or displacement. Extra- axial spaces: No abnormal density. Brain volume: Mild generalized cerebr al volume loss. Craniocervical junction: No mass, Chiari malformation, or basilar invagination. Sella: No mass. Paranasal/mastoid sinuses: Imaged portions unremarkable. IMPRESSION: No acute intracranial abnorm ality. Mild generalized cerebral volume loss. Signed by: Dr. Rina Gayle M.D. on 05/05/2018 8:50 PM Dictated By: RINA GAYLE MD Electr onically Signed By: RINA GAYLE MD on 05/05/182049 Transcribed By: RENETTA on 05/05/182049 COPY TO: ERNESTO JUAREZ MD [[facility]] IRON AND TOTAL IRON BINDING [id number] 09:11:00* Test Item Value Reference Range Interpretation Comments IRON, TOTAL (test code = IRON, TOTAL) 136 {mcg/dl} 50-180 N IRON BINDING CAPACITY (test code = IRON BINDING CAPACITY) 34 5 {mcg/dL ca} 250-425 N % SATURATION (test code = % SATURATION) 39 {% CALC} 15-60 N [facility]] CMP [id number] 09:11:00* Test Item Value Reference Range Interpretation Comments GLUCOSE; Normal (test code = 1547-9) 133 mg/dl 65-139 N Non-fasting reference interval UREA NITROGEN (BUN) (test code = UREA NITROGEN (BUN)) 14 mg/dl 7-25 N CREATININE (test code = CREATININE) 0.84 mg/dl 0.70-1.18 N For patients >49 years of age, the reference limitfor Creatinine is approximately 13% higher for peopleidentified as -Libyan. eGFR NON- (test code = eGFR NON-DONNELL N MAURITANIAN) 87 {ML/MIN/1.7} > OR = 60 N eGFR (test code = eGFR ) 10 1 {ML/MIN/1.7} > OR = 60 N BUN/CREATININE RATIO (test code = BUN/CREATININE RATIO) NOT APPLICA BLE 6-22 SODIUM (test code = SODIUM) 139 mmol/L 135-146 N POTASSIUM (test code = POTASSIUM) 3.9 mmol/L 3.5-5.3 N CHLORIDE (test code = CHLORIDE) 103 mmol/L 98-110 N CARBON DIOXIDE (test code = CARBON DIOXIDE) 29 mmol/L 20-32 N CALCIUM (test code = CALCIUM) 9.6 mg/dl 8.6-10.3 N PROTEIN, TOTAL (test code = PROTEIN, TOTAL) 7.1 g/dl 6.1-8.1 N ALBUMIN (test code = ALBUMIN) 4.2 g/dl 3.6-5.1 N GLOBULIN (test code = GLOBULIN) 2.9 {G/DL CALC} 1.9-3.7 N ALBUMIN/GLOBULIN RATIO (test code = ALBUMIN/GLOBULIN RATIO) 1.4 {CALC} 1.0-2.5 N BILIRUBIN, TOTAL; Above High Threshold (test code = 18298-8) 1.5 mg/dl 0.2-1.2 ALKALINE PHSPHATASE (test code = ALKALINE PHSPHATASE) 65 u/l 40-115 N AST; Normal (test code = 1916-6) 28 u/l 10-35 N ALT; Normal (test code = 1742-6) 40 u/l 9-46 N [facility]] CBC (INCLUDES DIFF/PLT)2018-04-17 09:11:00* Test Item Value Reference Range Interpretation Comments WHITE BLOOD CELL COUNT (test code = WHITE BLOOD CELL COUNT) 6.3 {Thousand/u} 3.8-10.8 N RED BLOOD CELL COUNT (test code = RED BLOOD CELL COUNT) 4.68 {Million/uL} 4.20-5.80 N HEMAGLOBIN; Normal (test code = 69302-0) 13.9 g/dl 13.2-17.1 N HEMATOCRIT; Normal (test code = 4544-3) 41.1 % 38.5-50.0 N MCV; Normal (test code = 787-2) 87.8 fL 80.0-100.0 N MCHC; Normal (test code = 34315-6) 33.8 g/dl 32.0-36.0 N RDW; Normal (test code = 788-0) 13.3 % 11.0-15.0 N PLATELET COUNT; Below Low Threshold (test code = 777-3) 135 {Thousand/u} 140-400 MPV; Normal (test code = 31521-4) 11.7 fL 7.5-12.5 N ABSOLUTE NEUTROPHILS (test code = ABSOLUTE NEUTROPHILS) 4486 {cells/uL} 2672-8688 N ABSOLUTE LYMPHOCYTES (test code = ABSOLUTE LYMPHOCYTES) 1159 {cells/uL} 850-3900 N ABSOLUTE MONOCYTES (test code = ABSOLUTE MONOCYTES) 479 {cells/uL} 200-950 N ABSOLUTE EOSINOPHILS (test code = ABSOLUTE EOSINOPHILS) 139 {cells/ uL} 15-500 N ABSOLUTE BASOPHILS (test code = ABSOLUTE BASOPHILS) 38 {cells/uL} 0 -200 N NEUTROPHILS (test code = NEUTROPHILS) 71.2 % N LYMPHOCYTES (test code = LYMPHOCYTES) 18.4 % N MONOCYTES; Normal (test code = 38447-4) 7.6 % N EOSINOPHILS; Normal (test code = 76184-2) 2.2 % N BASOPHILS; Normal (test code = 93825-5) 0.6 % N [facility]] [id number] 09:11:00* Test Item Value Reference Range Interpretation Comments FERRITIN (test code = FERRITIN) 24 ng/ml 20-[address] [facility]] HEMOGLOBIN [id number] 09:11:00* Test Item Value Reference Range Interpretation Comments HEMOGLOBIN A1c; Above High Threshold (test code = 4548-4) 7.5 {% of total} <5.7 For someone without known diabetes, a he moglobin G2mdvfez of 6.5% or greater indicates that they [...] A1c for diagnosis of diabetes for children. [facility] Bone Density [employer] [id number] 10:57:00MALE BONE DENSITY ASSESSMENT: 03/27/2018CLINICAL DATA: Z13.820-Screening for osteoporosis S22.060A Closed wedgecompression fracture of eighth thoracic vertebra. Z13.820 Encounter ForScreening For Osteoporosis, S22.060a Wedge Compression Fracture Of T7-T0Lljuzyfp, Initial Encounter For Closed Fracture/Z13.820 Encounter ForScreening For Osteoporosis, S22.060a Wedge Compression Fracture Of T7-G2QvaziwsyTUKI FACTORS: Fractures with minimal trauma and previous spine, rib, or hipfractures. FINDINGS:Bone density evaluation was performed 03/27/2018 on the right femur neck usinga Hologic unit. The BMD average for the exam is 1.232 g/cm2. The T-score is2.20 and the Z-score is 3.50. This matches the World Health Organization'scriteria for normal bone density and places the patient within normal limits offracture risk. An additional bone density evaluation was performed 03/27/2018 on the leftfemur neck using a Hologic unit. The BMD average for the exam is 1.226 g/cm2.The T- score is 2.20 and the Z-score is 3.40. This matches the World HealthOrganization's criteria for normal bone density and places the patient withinnormal limits of fracture risk. An additional bone density evaluation was performed 03/27/2018 on the right hipusing a Hologic unit. The BMD average for the exam is 1.261 g/cm2. The T-scoreis 1.50 and the Z-score is 2.30. This matches the World Health Organization'scriteria for normal bone density and places the patient within normal limits offracture risk. An additional bone dens ity evaluation was performed 03/27/2018 on the left hipusing a Hologic unit. The BMD average for the exam is 1.332 g/cm2. The T-scoreis 2.00 and the Z-score is 2.70. This matches the World Health Organization'scriteria for normal bone den sity and places the patient within normal limits offracture risk. An additional bone density evaluation was performed 03/27/2018 on the AP L1-O0xzkkug of spine using a Hologic unit. The BMD average for the exam is 1.168 g/cm2. This matches the World Health Organization's criteria for normal bonedensity and places the p atient within normal limits of fracture risk. IMPRESSION: BONE DENSITY WITHIN NO RMAL LIMITSPatient is at normal risk for fracture. This exam was interpreted [id number] for ANTHONY Helms. Benny Cabrera M.D. cm/penrad:03/27/2018 13:55:14 Railroad Brakeman(s): Sherrell MASTERSON(R)(M), [facility]--Read by: Berlin Rendon MDDictated Date/time: 03/27/18 13:55Electronically Sign ed by: Berlin Rendon MD 03/27/1813:55[facility]AL [facility]PORT [facility] frontal lateral [id number] 2018-03-19 09:14:00EXAM: XR THORACIC SPINE 2 VIEWSDATE: 03/19/2018 9:14 AM CDTINDICATION: - mid back painCOMPARISON: Chest radiograph 10/10/2017TECHNIQUE: AP and lateral radiographs of the thoracic spineFINDINGS: There is mild exaggeration of the thoracic kyphosis. At T8, there ismild anterior height loss but appears chronic. No other significant vertebralheight loss identified. Mild to moderate multilevel degenerative changes seenthroughout the thoracic spine.Malleable plate and screws project to the right of midline at the T4 level onthe frontal radiograph. Prosthetic heart valve is present.IMPRESSION: Chronic appearing anterior wedge compression deformity at T8 with tducyxnjobvvz12% height loss.--This report was dictated by a Kiln Door Repairer/Fellow. I have personallyreviewed the images aswell as the Resident's interpretation and agree with the findings.Read by: Ernesto Mejai MD Resident: Mejia, Ernesto QuangMDDictated Date/time: 03/19/18 09:57Electronically Signed by: Colin Morillo MD 03/19/1810:22FINAL REPORT [facility] (Diabetic)2017-12-26 05:00:00* Test Item Value Reference Range Interpretation Comments Negative Diabetic Eye Screening (test code = Negative Diabetic Eye Screening) [id number] [facility]] IRON AND TOTAL IRON BINDING CAPACITY 2017-12-19 08:49:00* Test Item Value Reference Range Interpretation Comments IRON, TOTAL (test code = IRON, TOTAL) 61 {mcg/dl} 50-180 N IRON BINDING CAPACITY (test code = IRON BINDING CAPACITY) 36 4 {mcg/dL ca} 250-425 N % SATURATION (test code = % SATURATION) 17 {% CALC} 15-[address] [facility]] CBC (INCLUDES DIFF/PLT)2017-12-19 08:49:00* Test Item Value Reference Range Interpretation Comments WHITE BLOOD CELL COUNT (test code = WHITE BLOOD CELL COUNT) 5.9 {Thousand/u} 3.8-10.8 N RED BLOOD CELL COUNT (test code = RED BLOOD CELL COUNT) 4.72 {Million/uL} 4.20-5.80 N HEMAGLOBIN; Below Low Threshold (test code = 65309-1) 12.6 g/dl 13.2-17.1 HEMATOCRIT; Normal (test code = 4544-3) 38.8 % 38.5-50.0 N MCV; Normal (test code = 787-2) 82.2 fL 80.0-100.0 N MCHC; Normal (test code = 44919-5) 32.5 g/dl 32.0-36.0 N RDW; Above High Threshold (test code = 788-0) 18.8 % 11.0-15. 0 PLATELET COUNT; Normal (test code = 777-3) 147 {Thousand/u} 140-400 N MPV; Normal (test code = 18251-0) 11.3 fL 7.5-12.5 N ABSOLUTE NEUTROPHILS (test code = ABSOLUTE NEUTROPHILS) 4106 {cells/uL} 1937-7149 N ABSOLUTE LYMPHOCYTES (test code = ABSOLUTE LYMPHOCYTES) 1056 {cells/uL} 850-3900 N ABSOLUTE MONOCYTES (test code = ABSOLUTE MONOCYTES) 513 {cells/uL} 200-950 N ABSOLUTE EOSINOPHILS (test code = ABSOLUTE EOSINOPHILS) 183 {cells/ uL} 15-500 N ABSOLUTE BASOPHILS (test code = ABSOLUTE BASOPHILS) 41 {cells/uL} 0 -200 N NEUTROPHILS (test code = NEUTROPHILS) 69.6 % N LYMPHOCYTES (test code = LYMPHOCYTES) 17.9 % N MONOCYTES; Normal (test code = 29712-4) 8.7 % N EOSINOPHILS; Normal (test code = 63313-6) 3.1 % N BASOPHILS; Normal (test code = 50079-6) 0.7 % N [facility]] [id number] 08:49:00* Test Item Value Reference Range Interpretation Comments FERRITIN (test code = FERRITIN) 14 ng/ml 20-380 [facility]] HEMOGLOBIN [id number] 08:49:00* Test Item Value Reference Range Interpretation Comments HEMOGLOBIN A1c; Above High Threshold (test code = 4548-4) 6.6 {% of total} <5.7 For someone without known diabetes, a he moglobin A0cbprjc of 6.5% or greater indicates that they [...] A1c for diagnosis of diabetes for children. [facility]] IRON AND TOTAL IRON BINDING CAPACITY 2017-10-31 10:55:00* Test Item Value Reference Range Interpretation Comments IRON, TOTAL (test code = IRON, TOTAL) 48 {mcg/dl} 50-180 IRON BINDING CAPACITY (test code = IRON BINDING CAPACITY) 35 2 {mcg/dL ca} 250-425 N % SATURATION (test code = % SATURATION) 14 {% CALC} 15-60 [facility]] CMP [id number] 10:55:00* Test Item Value Reference Range Interpretation Comments GLUCOSE; Normal (test code = 1547-9) 99 mg/dl 65-99 N Fasting reference interval UREA NITROGEN (BUN) (test code = UREA NITROGEN (BUN)) 14 mg/dl 7-25 N CREATININE (test code = CREATININE) 0.75 mg/dl 0.70-1.18 N For patients >49 years of age, the reference limitfor Creatinine is approximately 13% higher for peopleidentified as -Libyan. eGFR NON- (test code = eGFR NON-DONNELL N MAURITANIAN) 92 {ML/MIN/1.7} > OR = 60 N eGFR (test code = eGFR ) 10 6 {ML/MIN/1.7} > OR = 60 N BUN/CREATININE RATIO (test code = BUN/CREATININE RATIO) NOT APPLICA BLE 6-22 SODIUM (test code = SODIUM) 139 mmol/L 135-146 N POTASSIUM (test code = POTASSIUM) 4.1 mmol/L 3.5-5.3 N CHLORIDE (test code = CHLORIDE) 105 mmol/L 98-110 N CARBON DIOXIDE (test code = CARBON DIOXIDE) 29 mmol/L 20-31 N CALCIUM (test code = CALCIUM) 9.9 mg/dl 8.6-10.3 N PROTEIN, TOTAL (test code = PROTEIN, TOTAL) 7.5 g/dl 6.1-8.1 N ALBUMIN (test code = ALBUMIN) 4.4 g/dl 3.6-5.1 N GLOBULIN (test code = GLOBULIN) 3.1 {G/DL CALC} 1.9-3.7 N ALBUMIN/GLOBULIN RATIO (test code = ALBUMIN/GLOBULIN RATIO) 1.4 {CALC} 1.0-2.5 N BILIRUBIN, TOTAL; Normal (test code = 89320-9) 0.9 mg/dl 0.2-1.2 N ALKALINE PHSPHATASE (test code = ALKALINE PHSPHATASE) 67 u/l 40-115 N AST; Normal (test code = 1916-6) 18 u/l 10-35 N ALT; Normal (test code = 1742-6) 19 u/l 9-46 N [facility]] CBC (INCLUDES DIFF/PLT)2017-10-31 10:55:00* Test Item Value Reference Range Interpretation Comments WHITE BLOOD CELL COUNT (test code = WHITE BLOOD CELL COUNT) 5.4 {Thousand/u} 3.8-10.8 N RED BLOOD CELL COUNT (test code = RED BLOOD CELL COUNT) 4.75 {Million/uL} 4.20-5.80 N HEMOGLOBIN; Below Low Threshold (test code = 86475-6) 11.5 g/dl 13.2-17.1 HEMATOCRIT; Below Low Threshold (test code = 4544-3) 38.0 % 3 8.5-50.0 MCV; Normal (test code = 787-2) 80.0 fL 80.0-100.0 N MCHC; Below Low Threshold (test code = 95995-4) 30.3 g/dl 32.0-3 6.0 RDW; Above High Threshold (test code = 788-0) 21.5 % 11.0-15. 0 PLATELET COUNT; Below Low Threshold (test code = 777-3) 132 {Thousand/u} 140-400 ABSOLUTE NEUTROPHILS (test code = ABSOLUTE NEUTROPHILS) 3915 {cells/uL} 0917-2121 N ABSOLUTE LYMPHOCYTES (test code = ABSOLUTE LYMPHOCYTES) 907 {esther ls/uL} 850-3900 N ABSOLUTE MONOCYTES (test code = ABSOLUTE MONOCYTES) 427 {cells/uL} 200-950 N ABSOLUTE EOSINOPHILS (test code = ABSOLUTE EOSINOPHILS) 119 {cells/ uL} 15-500 N ABSOLUTE BASOPHILS (test code = ABSOLUTE BASOPHILS) 32 {cells/uL} 0 -200 N NEUTROPHILS (test code = NEUTROPHILS) 72.5 % N LYMPHOCYTES (test code = LYMPHOCYTES) 16.8 % N MONOCYTES; Normal (test code = 13420-7) 7.9 % N EOSINOPHILS; Normal (test code = 55964-5) 2.2 % N BASOPHILS; Normal (test code = 68800-1) 0.6 % N COMMENT(S) (test code = COMMENT(S)) See Comment Anisocytosis 1 +Evaluate results with caution. The white blood cell count and plate-let count may be altered due to interferences caused by the presenceof significant numbers of large/giant platelets. The smear was manually reviewed and the instrumentdifferential results have been confirmed.The instrument differential has been reported. MPV (test code = 27464-1) TNP TE ST(S) NOT PERFORMED: MPV * Test not performed. * Result not calculated because one or morerequired values exceed analytical limits. [facility]] [id number] 10:55:00* Test Item Value Reference Range Interpretation Comments FERRITIN (test code = FERRITIN) 35 ng/ml 20-[address] [facility]] FOLATE, [id number] 10:55:00* Test Item Value Reference Range Interpretation Comments FOLATE, SERUM (test code = FOLATE, SERUM) 12.6 ng/ml N Reference Range Low: <3.4 Borderline: 3.4-5.4 Normal: >5.4 [facility]
--- OUTSIDE RECORDS SUMMARY | 2019-11-11 21:00 | XMS REPORT ---
Author Author JAQUI Roman Organization Unknown Address Unknown Phone Care Team Providers Care Railroad Commissioner Name Role Phone Lily Roman PP Unavailable Reason for Referral No Reason [...] Start Date: 04/27/2013; End Date: (Active) * Azithromycin 250 MG Oral Tablet; TAKE 2 TABLETS ON DAY 1 THEN TAKE 1 TABLET A DAY FOR 4 DAYS.; Start Date: 07/24/2013; End Date: 07/29/2013 (Active) * PredniSONE 10 MG Oral Tablet; [...] 05/31/2011 * Fluzone Intramuscular Injectable (Lot #: [id number]) - Administered on: 04/20/2013 Family History * [...] No Advance Directives available. Encounters * AUDIT 07/24/2013 * EST, Provider: DARLYN SMART, Status: Cl, Time: 8:30 AM 08/25/2013
--- OUTSIDE RECORDS SUMMARY | 2019-11-11 21:00 | XMS REPORT ---
Author JAQUI Scott Organization Unknown Address Unknown Phone Care Team Providers Care Television Schedule Coordinator Name Role Phone EugenioPat PP Unavailable Reason for Referral No Reason [...] 05/31/2011 * Fluzone Intramuscular Injectable (Lot #: [id number]) - Administered on: 04/20/2013 Family History * [...] Use (Denied) * Never A Smoker (Active) * Occupation: Retired (Active) Treatment Plan * [QLH] TESTOSTERONE, FREE AND TOTAL, LC/MS/MS 04/16/2013 Routine * [QLH] PSA, TOTAL 04/16/2013 Routine Advance Directives * No Advance Directives available. Encounters * AUDIT 09/30/2013 * EST, Provider: DARLYN SMART, Status: Cl, Time: 9:00 AM 10/26/2013
--- OUTSIDE RECORDS SUMMARY | 2019-11-11 21:00 | XMS REPORT ---
Author Author JAQUI Loya Organization Unknown Address Unknown Phone Care Team Providers Care Turning And Beading Machine Operator Name Role Phone Alanna Loya PP Unavailable Reason for Referral No Reason [...] 05/31/2011 * Fluzone Intramuscular Injectable (Lot #: [id number]) - Administered on: 04/20/2013 Family History * [...] No Advance Directives available. Encounters * AUDIT 05/12/2013 * AST, Provider: RADHA OWEN, Status: Cl, Time: 8:15 AM 05/13/2013
--- OUTSIDE RECORDS SUMMARY | 2019-11-11 21:00 | XMS REPORT ---
Author Author JAQUI FRIEDMAN Organization Unknown Address Unknown Phone Care Team Providers Care Overhead Distribution Engineer Name Role Phone ELDERINDIGO PP Unavailable Reason for Referral No Reason for Referral was given. History of Present Illness No HPI available. Problems * Normal Routine History And Physical Senior Citizen (65-80) (V70.0); ( Active) * Hypertension (401.9); (Active) * Fatigue (780.79); (Active) * Male Erectile Disorder (302.72); (Active) * Visit For: Screening Exam Malignant Neoplasm Prostate (V76.44); (Active ) Medication * AmLODIPine Besylate 5 MG Oral [...] TO DIRECT LDL 04/16/2013 Routine * [QLH] TSH, 3RD GENERATION W/REFLEX TO FT4 04/16/2013 Routine * [QLH] TESTOSTERONE, FREE AND TOTAL, LC/MS/MS 04/16/2013 Routine * [QLH] PSA, TOTAL 04/16/2013 Routine * [N] Echo Follow up/Limited 04/16/2013 Routine * Cardiology Referral 04/16/2013 Routine Advance Directives * No Advance Directives available. Encounters * AUDIT 04/16/2013 * ECH, Provider: DANIEL AMIN, Status: Cl, Time: 2:00 PM 04/27/2013 * CPP, Provider: DARLYN SMART, Status: Cl, Time: 3:00 PM 04/27/2013
--- OUTSIDE RECORDS SUMMARY | 2019-11-11 21:00 | XMS REPORT ---
Author Author JAQUI FRIEDMAN Organization Unknown Address Unknown Phone Care Team Providers Care Cotton Wringer Name Role Phone ELDERINDIGO PP Unavailable Reason [...] 05/31/2011 * Fluzone Intramuscular Injectable (Lot #: [id number]) - Administered on: 04/20/2013 Family History * [...] No Advance Directives available. Encounters * AUDIT 05/24/2013
--- OUTSIDE RECORDS SUMMARY | 2019-11-11 21:00 | XMS REPORT ---
Author Author JAQUI Ji Organization Unknown Address Unknown Phone Care Team Providers Care Residue Furnace Operator Name Role Phone Sharon Ji PP Unavailable Reason for Referral No Reason for Referral was given. History of Present Illness No HPI available. Problems * Normal Routine History And Physical Senior Citizen (65-80) (V70.0); ( Active) * Hypertension (401.9); (Active) Medication * AmLODIPine Besylate 5 MG Oral Tablet; 1 po q day; Start Date: 04/13/2013; End Date: (Active) * Losartan Potassium-HCTZ 100-12.5 MG Oral Tablet; TAKE 1 TABLET DAILY. (Active) * Metoprolol Succinate ER 100 MG Oral Tablet Extended Release 24 Hour; TAKE 1 TABLET DAILY. (Active) * Norvasc 5 MG Oral Tablet; [...] * No History of Alcohol Use (Denied) Advance Directives * No Advance Directives available. Encounters * AUDIT 04/15/2013 * FUP, Provider: INDIGO FRIEDMAN, Status: Cl, Time: 9:45 AM 04/16/2013
--- OUTSIDE RECORDS SUMMARY | 2019-11-11 21:00 | XMS REPORT ---
Author Author JAQUI Maya Organization Unknown Address Unknown Phone Care Team Providers Care Biometrics Instructor Name Role Phone FrancescoXimena Deng PP Unavailable Reason for Referral No Reason [...] 05/31/2011 * Fluzone Intramuscular Injectable (Lot #: [id number]) - Administered on: 04/20/2013 Family History * [...] * [N] Echo Follow up/Limited 04/16/2013 Routine Advance Directives * No Advance Directives available. Encounters * AUDIT 04/20/2013 * [facility], Provider: DANIEL AMIN, Status: Cl, Time: 2:00 PM 04/27/2013 * [facility], Provider: DARLYN SMART, Status: Cl, Time: 3:00 PM 04/27/2013
--- OUTSIDE RECORDS SUMMARY | 2019-11-11 21:01 | XMS REPORT | Summary of Care ---
Author Author JAQUI CARLIN Unknown Address Unknown Phone Unavailable Care Team Providers Care Advice Nurse Name Role Phone JONATHAN Velarde, MIR Unavailable Unavailable SNUIL Velarde, MOOK Unavailable Unavailab marcella MATHEWS D.O., JIM Unavailable Unavailable GRACE Boothe, AMI Unavailable Unavailable MALIA GARCIA [place], NAVEEN TOWNSEND Unavailable Unavailable MALIA Velarde, NAVEEN Unavailable Unavailable Sunil GARCIA, Mook Unavailable Unavailable CHRISTINE GARCIA, ERNESTO Hood Unavailable Unavailable Elizabeth R.NYanci, Kay Unavailable Unavailable GRACE PA [place], AMI LANDIS Unavailable Unavailab marcella RICO MD, FRANCISCO Miller Unavailable Unavailable Unavailable Unavailable Functional Status Name Dates Details Functional status health issues are not documented Status: Name Dates Details Cognitive status health issues are not d ocumented Status: Problems Name Dates Details 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 4) Status: Active Pre-procedure lab exam (V72.63, Z01.812) Status: Active Petechial rash (782.7, R23.3) Status: Active Unstable angina (411.1, I20.0) Status: Active Myalgia (729.1, M79.10) Status: Active Sinusitis (473.9, J32.9) Status: Active Wheezing (786.07, R06.2) Status: Active Right calf pain (729.5, M79.661) Status: Active Chronic pain of right knee (719.46, M25. 561) Status: Active Negative depression screening (V79.0, Z1 3.31) Status: Active Bursitis (727.3, M71.9) Status: Active Need for hepatitis C screening test (V73 .89, Z11.59) Status: Active Memory loss or impairment (780.93, R41.3 ) Status: Active Right knee pain, unspecified chronicity (719.46, M25.561) Status: Active Limb pain (729.5, M79.609) Status: Active SOB (shortness of breath) on exertion (7 86.05, R06.02) Status: Active Chest pain (786.50, R07.9) Status: Active Left groin pain (789.04, R10.32) Status: Active Inguinal hernia (550.90, K40.90) Status: Active Severe aortic stenosis (424.1, I35.0) Status: Active Pleural effusion on right (511.9, J90) Status: Active Dementia (294.20, F03.90) Status: Active S/P placement of cardiac pacemaker (V45. 01, Z95.0) Status: Active Special Dr. Services Analysis Of Compute rized Data Status: Active Duration Of Encounter - Review Of Prior Records (___ min) Status: Active Aortic stenosis (424.1, I35.0) Status: Active Status post aortic valve replacement wit h bioprosthetic valve (V42.2, Z95.3) Status: Active Status post aortic valve replacement wit h bioprosthetic valve (V42.2, Z95.3) Status: Active Rectal bleeding (569.3, K62.5) Status: Active Post-operative state (V45.89, Z98.890) Status: Active Pruritus (698.9, L29.9) Status: Active Bacteremia (790.7, R78.81) Status: Active Ptosis of left eyelid (374.30, H02.402) Status: Active Bilateral impacted cerumen (380.4, H61.2 3) Status: Active Decreased hearing of both ears (389.9, H 91.93) Status: Active NSVT (nonsustained ventricular tachycard ia) (427.1, I47.2) Status: Active Sensorineural hearing loss, bilateral (3 89.18, H90.3) Status: Active Aortic valve disease (424.1, I35.9) Status: Active Mid back pain (724.5, M54.9) Status: Active Allergic rhinitis (477.9, J30.9) Status: Active Never smoker Status: Active Closed wedge compression fracture of [facility] thoracic vertebra, initial encounter (805.2, S22.060A) Status: Active Osteoporosis screening (V82.81, Z13.820) Status: Active 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, 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 S/P aortic valve replacement (V43.3, Z95 .2) Status: Active Asthma (493.90, J45.909) Status: Active 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, 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) Status: Active Thrombocytopenia (287.5, D69.6) Status: Active Need for vaccination with 13-polyvalent pneumococcal conjugate vaccine (V03.82, Z23) Status: Active Need for zoster vaccination (V04.89, Z23 ) Status: Active Memory difficulties (780.93, R41.3) Status: Active Psoriasis (696.1, L40.9) Status: Active Vitamin B12 deficiency (266.2, E53.8) Status: Active Erectile dysfunction (607.84, N52.9) Status: Active Diabetes mellitus type 2, uncontrolled ( 250.02, E11.65) Status: Active Acute bacterial bronchitis (466.0, J20.8 ) Status: Active Essential (primary) hypertension (401.9, I10) Status: Active Iron deficiency anemia (280.9, D50.9) Status: Active Type 2 diabetes mellitus (250.00, E11.9) Status: Active Claudication, intermittent (443.9, I73.9 ) Status: Active Hyperlipidemia, unspecified hyperlipidem ia type (272.4, E78.5) Status: Active Infected pacemaker, 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, T82.7XXD) Status: Active CAD (coronary artery disease) (414.00, I 25.10) Status: Active Medications Name Dates Details Aspirin 81 MG TABS TAKE ONE TABLET BY MOUTH ONCE DAILY Quantity: 30 MOOK BARBER M.D. Active amLODIPine Besylate 10 MG Oral Tablet TAKE 1 TABLET BY MOUTH DAILY * Quantity: 90 Refills: 0 MOOK BARBER M.D. * Start : 27-Apr-2013 Active Accu-Chek SmartView In Vitro Strip TEST TWICE DAILY. * Quantity: 1 Refills: 4 YEH D.O.JIM * Start : 16-Mar-2015 Active 100 Strip Box metFORMIN HCl - 500 MG Oral Tablet TAKE 2 TABLETS BY MOUTH EVERY 12 HOURS WITH FOOD needs to do labs * Quantity: 60 Refills: 0 GRACE AMI Boothe * Start : 16-Mar-2015 Active OneTouch Verio In Vitro Strip CHECK BLOOD SUGAR EVERY DAY * Quantity: 100 Refills: 0 GRACE AMI Boothe * Start : 11-Jun-2017 Active OneTouch Delica Lancets Fine MISC USE DIRECTED EVERY DAY * Quantity: 1 Refills: 0 GRACE AMI Boothe * Start : 11-Jun-2017 Active 100 Unit Box Atorvastatin Calcium 80 MG Oral Tablet TAKE 1 TABLET BY MOUTH EVERY DAY * Quantity: 90 Refills: 1 GRACE AMI Boothe * Start : 13-Feb-2018 Active Clopidogrel Bisulfate 75 MG Oral Tablet TAKE 1 TABLET BY MOUTH DAILY * Quantity: 60 Refills: 0 MOOK BARBER M.D. * Start : 21-Feb-2018 Active Fluocinonide 0.05 % External Ointment APPLY SPARINGLY TO scalp ONCE DAILY * Quantity: 1 Refills: 0 MIR CASTILLO M.D. Active 60 GM Tube Fluocinolone Acetonide Body 0.01 % External Oil Apply once daily to face and body * Quantity: 1 Refills: 0 MIR CASTILLO M.D. Active 118.28 ML Bottle Losartan Potassium-HCTZ 100-12.5 MG Oral Tablet TAKE 1 TABLET BY MOUTH EVERY MORNING * Quantity: 60 Refills: 0 MOOK BARBER M.D. * Start : 09-Sep-2017 Active ProAir HFA 108 (90 Base) MCG/ACT Inhalation Aerosol Solution INHALE 1 TO 2 PUFFS EVERY 4 TO 6 HOURS NEEDED. * Quantity: 1 Refills: 4 GRACE AMI Boothe * Start : 18-Jun-2018 Active 8.5 GM Inhaler Shingrix 50 MCG Intramuscular Suspension Reconstituted Administer at pharmacy as directed * Quantity: 1 Refills: 0 GRACE Kt.AMI Moreira * Start : 19-Nov-2018 Active Ketoconazole 2 % External Cream APPLY A THIN LAYER TO AFFECTED AREA(S) OF FACE TWICE DAILY * Quantity: 1 Refills: 0 GRACE AMI Boothe * Start : 11-Jan-2019 Active 60 GM Tube Ferrous Sulfate 325 (65 Fe) MG Oral Tablet TAKE 1 TABLET EVERY OTHER DAY * Quantity: 45 Refills: 1 GRACE Kt.AMI Moreira * Start : 13-Jan-2019 Active Vitamin B-12 1000 MCG Sublingual Tablet Sublingual Dissolve 1 tablet sublingually once daily * Quantity: 90 Refills: 1 GRACE Kt.AMI Moreira * Start : 13-Jan-2019 Active Benzonatate 100 MG Oral Capsule TAKE 1 CAPSULE 3 times daily as needed for cough * Quantity: 30 Refills: 1 GRACE AMI Boothe * Start : 30-Mar-2019 Active OneTouch Delica Plus [id number] USE DIRECTED EVERY DAY * Quantity: 100 Refills: 0 GRACE Kt.AMI Moreira * Start : 13-Apr-2019 Active Allergies and Adverse Reactions Name Dates Details Morphine Derivatives (Allergy) Status: A ctive [place] TABS (Allergy) Status: Active oxycodone (Allergy) Status: Active Tylenol with Codeine #3 TABS (Allergy) S tatus: Active Past Medical History Name Dates Details History of Abnormal blood chemistry (790 .6, R79.9) Status: Resolved History of anticoagulant therapy (V87.49 , Z92.29) Status: Resolved History of At standard risk for fall (V1 5.88, Z91.81) Status: Resolved History of Childhood asthma (493.00, J45 .909) Status: Resolved History of coronary artery disease (V12. 59, Z86.79) Status: Resolved History of diabetes mellitus (V12.29, Z8 6.39) Status: Resolved History of Exertional angina (413.9, I20 .8) Status: Resolved History of heart valve abnormality (V12. 59, Z86.79) Status: Resolved History of hypertension (V12.59, Z86.79) Status: Resolved History of paroxysmal supraventricular t achycardia (V12.59, Z86.79) Status: Resolved History of rectal bleeding (V12.79, Z87. 19) Status: Resolved History of tinea corporis (V12.09, Z86.1 9) Status: Resolved Procedures Procedure Dates Details History of Tonsillectomy With Adenoidectomy Completed History of Cholecystectomy Completed History of Permanent pacemaker insertion Completed History of Aortic valve replacement Comp leted Immunization Name Dates Details Tdap on: Aug-2010 Influenza on: 31-May-2011 Fluzone INJ Lot #: [id number] on: 20-Apr-2013 Fluzone Quadrivalent 0.5 ML Intramuscula r Suspension Prefilled Syringe Lot #: [id number] on: 06-Mar-2015 Prevnar 13 Intramuscular Suspension Lot #: [id number] on: 19-Nov-2018 Influenza, seasonal, injectable on: 26-Mar-2019 Family History Name Dates Details Family history of Colon Cancer (V16.0) Comments: Family History Status: Active Family history of Hypertension (V17.49) Comments: Family History Status: Active Family history of cardiovascular disease (V17.49, Z82.49) Comments: Family History Status: Active Name Dates Details Family history of Leukemia (V16.6) Status: Active FH: CABG (coronary artery bypass surgery ) (V17.3, Z82.49) Status: Active Name Dates Details Family history of Diabetes Mellitus (V18 .0) Status: Active Family history of H/O heart transplant ( V42.1, Z94.1) Status: Active Family history of malignant neoplasm of stomach (V16.0, Z80.0) Status: Active Social History Name Dates Details - Status: Name Dates Details Never smoker Never smoker Vital Signs Date Test Result Details No Known Vitals to report Results Date Description Value Details Results not documented Plan of Care Name Dates Details Planned Observations Planned Goals not documented Planned Encounters Appointment; MOOK BARBER M .D. On: 06-Aug-2019 10:20 Interventions Provided Medication Changes* OneTouch Delica Plus [id number] - Renew Instructions Name Dates Details Instructions not documented Encounters Appointment; DOTTIE RODRIGUEZ M.D. Encounter Diagnosis: Problem not documented On: 16-Jul-2017 12:15 Appointment; HU ROMANO NP Encounter Diagnosis: Problem not documented On: 17-Jul-2017 13:30 Appointment; ROSANNE ORELLANA M.D. Encounter Diagnosis: Problem not documented On: 18-Jul-2017 14:30 Appointment; MOOK BARBER M .D. Encounter Diagnosis: Problem not documented On: 23-Jul-2017 18:20 Appointment; STEPHANIE RICHARDSON M.D. Encounter Diagnosis: Problem not documented On: 01-Aug-2017 15:00 Appointment; MIR CASTILLO M.D. Encounter Diagnosis: Problem not documented On: 07-Aug-2017 13:00 Appointment; MOOK BARBER M .D. Encounter Diagnosis: Problem not documented On: 20-Aug-2017 13:20 Appointment; MIR CASTILLO M.D. Encounter Diagnosis: Problem not documented On: 08-Sep-2017 9:00 Appointment; MOKO BARBER M .D. Encounter Diagnosis: Problem not documented On: 28-Oct-2017 10:20 Appointment; AMI EDWARDS P.A. Encounter Diagnosis: Problem not documented On: 30-Oct-2017 8:45 Appointment; SOL DE JESUS Encounter Diagnosis: Problem not documented On: 04-Nov-2017 9:15 Appointment; AMI EDWARDS P.A. Encounter Diagnosis: Problem not documented On: 20-Nov-2017 8:00 Appointment; MOOK BARBER M .D. Encounter Diagnosis: Problem not documented On: 09-Dec-2017 [...] Problem not documented On: 22-Jan-2018 9:30 Appointment; [place], ECHO Encounter Diagnosis: Problem not documented On: 24-Feb-2018 11:00 Appointment; MOOK BARBER M .D. Encounter Diagnosis: Problem not documented On: 24-Feb-2018 12:20 Appointment; AMI EDWARDS P.A. Encounter Diagnosis: Problem not documented On: 19-Mar-2018 8:15 Appointment; AMI EDWARDS P.A. Encounter Diagnosis: Problem not documented On: 19-Mar-2018 8:15 Appointment; AMI EDWARDS P.A. Encounter Diagnosis: Problem not documented On: 20-Mar-2018 8:15 Appointment; AMI EDWARDS P.A. Encounter Diagnosis: Problem not documented On: 21-Apr-2018 10:45 Appointment; AMI EDWARDS P.A. Encounter Diagnosis: Problem not documented On: 19-May-2018 11:30 Appointment; [place], STRESS Encounter Diagnosis: Problem not documented On: 12-Jun-2018 9:00 Appointment; MOOK BARBER M .D. Encounter Diagnosis: Problem not documented On: 12-Jun-2018 10:00 Appointment; AMI EDWARDS P.A. Encounter Diagnosis: Problem not documented On: 18-Jun-2018 11:30 Appointment; AMI EDWARDS P.A. Encounter Diagnosis: Problem not documented On: 20-Aug-2018 8:45 Appointment; AMI EDWARDS P.A. Encounter Diagnosis: Problem not documented On: 19-Nov-2018 14:15 Appointment; AMI EDWARDS P.A. Encounter Diagnosis: Problem not documented On: 11-Jan-2019 11:30 Appointment; [place], ECHO Encounter Diagnosis: Problem not documented On: 05-Feb-2019 10:00 Appointment; MOOK BARBER M .D. Encounter Diagnosis: Problem not documented On: 05-Feb-2019 11:20 Appointment; AMI EDWARDS P.A. Encounter Diagnosis: Problem not documented On: 30-Mar-2019 8:15
--- OUTSIDE RECORDS SUMMARY | 2019-11-11 21:01 | XMS REPORT | Summary of Care ---
Author Author JORDAN Velarde, JAQUI Waddell Unknown Address Unknown Phone Unavailable Care Team Providers Care Fitness Consultant Name Role Phone JONATHAN Velarde, MIR Unavailable Unavailable SUNIL Velarde, MOOK Unavailable Unavailab marcella MATHEWS D.O., JIM Unavailable Unavailable GRACE P.AYanci, AMI Unavailable Unavailable JORDAN Velarde, GLADIS Unavailable Unavailable MALIA GARCIA [place], NAVEEN TOWNSEND Unavailable Unavailable MALIA Velarde, NAVEEN Unavailable Unavailable Sunil GARCIA, Mook Unavailable Unavailable CHRISTINE GARCIA, ERNESTO Hood Unavailable Unavailable Janecka R.N., Kay Unavailable Unavailable GRACE PONCE [place], AMI LANDIS Unavailable Unavailab marcella RICO MD, [...] pacemaker (V45. 01, Z95.0) Status: Active Special DrYanci Services Analysis Of Compute rized Data Status: [...] Mid back pain (724.5, M54.9) Status: Active Never smoker Status: Active Closed wedge compression fracture of [facility] thoracic vertebra, initial encounter (805.2, S22.060A) [...] Active Erectile dysfunction (607.84, N52.9) Status: Active Acute bacterial bronchitis (466.0, J20.8 [...] artery disease) (414.00, I 25.10) Status: Active Acute sinusitis (461.9, J01.90) Status: Active Allergic rhinitis (477.9, J30.9) Status: Active Diabetes mellitus type 2, uncontrolled ( 250.02, E11.65) Status: Active Obesity (BMI 30.0-34.9) (278.00, E66.9) Status: Active Medications Name Dates Details Aspirin 81 MG TABS TAKE ONE TABLET BY MOUTH ONCE DAILY Quantity: 30 MOOK BARBER M.D. Active amLODIPine Besylate 10 MG Oral Tablet TAKE 1 TABLET BY MOUTH DAILY * Quantity: 90 Refills: 0 MOOK BARBER M.D. * Start : 27-Apr-2013 Active Accu-Chek SmartView In Vitro Strip TEST TWICE DAILY. * Quantity: 1 Refills: 4 BISI D.JIM Lucio * Start : 16-Mar-2015 Active 100 Strip Box metFORMIN HCl - 500 MG Oral Tablet TAKE 2 TABLETS BY MOUTH EVERY 12 HOURS WITH FOOD needs to do labs * Quantity: 60 Refills: 0 AMI CARLIN * Start : 16-Mar-2015 Active OneTouch Verio In Vitro Strip CHECK BLOOD SUGAR EVERY DAY * Quantity: 100 Refills: 0 AMI CARLIN * Start : 11-Jun-2017 Active OneTouch Delica Lancets Fine MISC USE DIRECTED EVERY DAY * Quantity: 1 Refills: 0 AMI CARLIN * Start : 11-Jun-2017 Active 100 Unit Box Atorvastatin Calcium 80 MG Oral Tablet TAKE 1 TABLET BY MOUTH EVERY DAY * Quantity: 90 Refills: 1 AMI CARLIN * Start : 13-Feb-2018 Active Clopidogrel Bisulfate 75 MG Oral Tablet TAKE 1 TABLET BY MOUTH DAILY * Quantity: 60 Refills: 0 MOOK BARBER M.D. * Start : 21-Feb-2018 Active Fluocinonide 0.05 % External Ointment APPLY SPARINGLY TO scalp ONCE DAILY * Quantity: 1 Refills: 0 JONATHAN Austin.Yosef, MIR Active 60 GM Tube Fluocinolone Acetonide Body 0.01 % External Oil Apply once daily to face and body * Quantity: 1 Refills: 0 JONATHAN Austin.DYanci, MIR Active 118.28 ML Bottle ProAir HFA 108 (90 Base) MCG/ACT Inhalation Aerosol Solution INHALE 1 TO 2 PUFFS EVERY 4 TO 6 HOURS NEEDED. * Quantity: 1 Refills: 4 AMI CARLIN * Start : 18-Jun-2018 Active 8.5 GM Inhaler Shingrix 50 MCG Intramuscular Suspension Reconstituted Administer at pharmacy as directed * Quantity: 1 Refills: 0 AMI CARLIN * Start : 19-Nov-2018 Active Ketoconazole 2 % External Cream APPLY A THIN LAYER TO AFFECTED AREA(S) OF FACE TWICE DAILY * Quantity: 1 Refills: 0 AMI CARLIN * Start : 11-Jan-2019 Active 60 GM Tube Ferrous Sulfate 325 (65 Fe) MG Oral Tablet TAKE 1 TABLET EVERY OTHER DAY * Quantity: 45 Refills: 1 GRACEAMI WARE * Start : 13-Jan-2019 Active Vitamin B-12 1000 MCG Sublingual Tablet Sublingual Dissolve 1 tablet sublingually once daily * Quantity: 90 Refills: 1 AMI CARLIN * Start : 13-Jan-2019 Active Benzonatate 100 MG Oral Capsule TAKE 1 CAPSULE 3 times daily as needed for cough * Quantity: 30 Refills: 1 AMI CARLIN * Start : 30-Mar-2019 Active OneTouch Delica Plus [id number] USE DIRECTED EVERY DAY * Quantity: 100 Refills: 0 AMI CARLIN Start : 13-Apr-2019 Active Losartan Potassium 100 MG Oral Tablet TAKE 1 TABLET DAILY * Quantity: 90 Refills: 1 MOOK BARBER M.D. * Start : 30-Jun-2019 Active hydroCHLOROthiazide 12.5 MG Oral Tablet TAKE 1 TABLET BY MOUTH EVERY DAY IN THE MORNING * Quantity: 90 Refills: 1 MOOK BARBER M.D. * Start : 30-Jun-2019 Active Otezla 10 & 20 & 30 MG Oral Tablet Therapy Pack * Refills: 0 * Start : 19-Jul-2019 Active 55 Tablet Pack Allergies and Adverse Reactions Name Dates Details Morphine Derivatives (Allergy) Status: A ctive [place] TABS (Allergy) Status: Active oxycodone (Allergy) Status: [...] Influenza on: 31-May-2011 Fluzone INJ Lot #: [id number] on: 20-Apr-2013 Fluzone Quadrivalent 0.5 ML Intramuscula r Suspension Prefilled Syringe Lot #: [id number] on: 06-Mar-2015 Prevnar 13 Intramuscular Suspension Lot #: [id number] on: 19-Nov-2018 Influenza, seasonal, injectable on: 26-Mar-2019 [...] smoker Vital Signs Date Test Result Details [id number] BP Systolic 134 mm[Hg] Status: Comments: Lo cation: RUE; Position: Sitting BP Diastolic 77 mm[Hg] Status: Comments: Lo cation: RUE; Position: Sitting Height 68 in Status: Weight 201 lb Status: Body Mass Index Calculated 30.56 kg/m2 Status: Body Surface Area Calculated 2.05 m2 Status: Temperature 98.3 f Status: Comments: Me thod: Oral Heart Rate 82 /min Status: Comments: Lo cation: R Brachial Artery; O2 SAT 98 % Status: Comments: So urce: RA Results Date Description Value Details [id number] [O] Hemoglobin A1c (in office) HEMOGLOBIN A1c 6.8% Plan of Care Name Dates Details Planned Observations Planned Goals not documented Planned Encounters Appointment; MOOK BARBER M .D. On: 06-Aug-2019 10:20 Interventions Provided Labs/Procedures/Imaging* [O] Hemoglobin A1c (in office); Done: 19 Jul 2019 Medications/Immunizations Administered* MethylPREDNISolone Acetate 80 MG/ML Injection Suspension Plan* Acute Sinusitis - likely viral * -- advised does not need antibiotics at this time * -- Patient advised on the course of the illness. Advised on supportive treatment with pushing fluids, getting rest, advised on Tylenol/ibuprofen prn for pain or fever. Also advised on use of mucinex, nasal saline and 1 table spoon of honey as needed for cough. Advised on steam therapy, Afrin and Flonase for nasal symptoms. Patient advised on proper hand hygiene RTC if symptoms do not resolve or worsen. * Allergic Rhinitis * -- advised on identifying and avoiding triggers * -- advised on anti-histamine and Flonase for symptomatic relief * DM * -- hemoglobin A1c has improved to 6.8 (from 7.0) * -- advised on continue Metformin, advised on healthy lifestyle changes with diet and exercise with intent of weight loss * -- advised on yearly eye exam * advised on checking with pharmacy/insurance about zoster vaccine. Discussion/Summary* DISCHARGE SUMMARY/INSTRUCTIONS: * - Medication benefits, risks, and side effects discussed with patient. * - ER precautions given. * - Patient advised to RTC if symptoms worsen or fail to improve. Instructions Name Dates Details Instructions not documented Encounters Appointment; MOOK BARBER M .D. Encounter Diagnosis: [...] documented On: 08-Sep-2017 9:00 Appointment; MOOK BARBER M .D. Encounter [...] Problem not documented On: 22-Jan-2018 9:30 [facility] Encounter Diagnosis: Problem not documented On: 24-Feb-2018 [...] Problem not documented On: 19-May-2018 11:30 Appointment; [facility], STRESS Encounter Diagnosis: Problem not documented On: [...] Problem not documented On: 11-Jan-2019 11:30 Appointment; [facility], ECHO Encounter Diagnosis: Problem not documented On: 05-Feb-2019 10:00 Appointment; MOOK BARBER M .D. Encounter Diagnosis: Problem not documented On: 05-Feb-2019 11:20 Appointment; AMI EDWARDS P.A. Encounter Diagnosis: Problem not documented On: 30-Mar-2019 8:15 Appointment; GLADIS ORTEGA M.D. Encounter Diagnosis: Problem not documented On: 19-Jul-2019 15:45
--- OUTSIDE RECORDS SUMMARY | 2019-11-11 21:01 | XMS REPORT | Summary of Care ---
Author Author SUNIL Velarde, JAQUI [facility] [place] Unknown Address Unknown Phone Unavailable Care Team Providers Care Commercial Intelligence Manager Name Role Phone JONATHAN Velarde, MIR Unavailable Unavailable SUNIL Velarde, MOOK Unavailable Unavailab marcella MATHEWS D.O., JIM Unavailable Unavailable GRACE P.AYanci, AMI Unavailable Unavailable MALIA GARCIA [place], NAVEEN TOWNSEND Unavailable Unavailable MALIA Velarde, NAVEEN Unavailable Unavailable Sunil GARCIA, Mook Unavailable Unavailable CHRISTINE GARCIA, ERNESTO Hood Unavailable Unavailable Janecka R.N., Kay Unavailable Unavailable GRACE PONCE [place], AMI LANDIS Unavailable Unavailab marcella RICO MD, [...] both ears (389.9, H 91.93) Status: Active Sensorineural hearing loss, bilateral (3 89.18, H90.3) Status: Active Mid back pain (724.5, M54.9) Status: Active Never smoker Status: Active Closed wedge compression fracture of g h thoracic vertebra, initial encounter (805.2, S22.060A) Status: Active Osteoporosis screening (V82.81, Z13.820) Status: Active 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, 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 Asthma (493.90, J45.909) Status: Active [...] bacterial bronchitis (466.0, J20.8 ) Status: Active Iron deficiency anemia (280.9, D50.9) Status: Active Type 2 diabetes mellitus (250.00, E11.9) Status: Active Claudication, intermittent (443.9, I73.9 ) Status: Active Infected pacemaker, 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, 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) Status: Active Acute sinusitis (461.9, J01.90) Status: Active Acute bacterial sinusitis (461.9, J01.90 ) Status: Active Allergic rhinitis (477.9, J30.9) Status: Active Obesity (BMI 30.0-34.9) (278.00, E66.9) Status: Active CAD (coronary artery disease) (414.00, I 25.10) Status: Active Aortic valve disease (424.1, I35.9) Status: Active Diabetes mellitus type 2, uncontrolled ( 250.02, E11.65) Status: Active Essential (primary) hypertension (401.9, I10) Status: Active Hyperlipidemia, unspecified hyperlipidem ia type (272.4, E78.5) Status: Active NSVT (nonsustained ventricular tachycard ia) (427.1, I47.2) Status: Active S/P aortic valve replacement (V43.3, Z95 .2) Status: Active Medications Name Dates Details Aspirin 81 MG TABS TAKE ONE TABLET BY MOUTH ONCE DAILY Quantity: 30 MOOK BARBER M.D. Active amLODIPine Besylate 10 MG Oral Tablet TAKE 1 TABLET BY MOUTH DAILY * Quantity: 90 Refills: 3 MOOK BARBER M.D. * Start : 27-Apr-2013 Active Accu-Chek SmartView In Vitro Strip TEST TWICE DAILY. * Quantity: 1 Refills: 4 JIM MATHEWS D.O. * Start : 16-Mar-2015 Active 100 Strip Box metFORMIN HCl - 500 MG Oral Tablet TAKE 2 TABLETS BY MOUTH EVERY 12 HOURS WITH FOOD needs to do labs * Quantity: 60 Refills: 0 GRACE AMI Boothe * Start : 16-Mar-2015 Active OneTouch Verio In Vitro Strip CHECK BLOOD SUGAR EVERY DAY * Quantity: 100 Refills: 0 GARCE AMI Boothe * Start : 11-Jun-2017 Active OneTouch Delica Lancets Fine MISC USE DIRECTED EVERY DAY * Quantity: 1 Refills: 0 GRACE AMI Boothe * Start : 11-Jun-2017 Active 100 Unit Box Atorvastatin Calcium 80 MG Oral Tablet TAKE 1 TABLET BY MOUTH EVERY DAY * Quantity: 90 Refills: 1 GRACEAMI WARE * Start : 13-Feb-2018 Active Clopidogrel Bisulfate 75 MG Oral Tablet TAKE 1 TABLET BY MOUTH DAILY * Quantity: 90 Refills: 3 MOOK BARBER M.D. * Start : 21-Feb-2018 Active Fluocinonide 0.05 % External Ointment APPLY SPARINGLY TO scalp ONCE DAILY * Quantity: 1 Refills: 0 JONATHAN M.DMIR Pete Active 60 GM Tube Fluocinolone Acetonide Body 0.01 % External Oil Apply once daily to face and body * Quantity: 1 Refills: 0 JONATHAN M.DYanci, MIR Active 118.28 ML Bottle ProAir HFA [...] OTHER DAY * Quantity: 45 Refills: 1 AMI CARLIN * Start : 13-Jan-2019 Active Vitamin B-12 1000 MCG Sublingual Tablet Sublingual Dissolve 1 tablet sublingually once daily * Quantity: 90 Refills: 1 AMI CARLIN * Start : 13-Jan-2019 Active Benzonatate 100 MG Oral Capsule TAKE 1 CAPSULE 3 times daily as needed for cough * Quantity: 30 Refills: 1 AMI CARLIN Start : 30-Mar-2019 Active OneTouch Delica Plus [id number] USE DIRECTED EVERY DAY * Quantity: 100 [...] Details Morphine Derivatives (Allergy) Status: A ctive [place] TABS (Allergy) Status: Active oxycodone (Allergy) Status: [...] 9) Status: Resolved Procedures Procedure Dates Details [N] Nuclear Test-Adenosine Stress Perfusion Date: 06-Aug-2019 History of Tonsillectomy With Adenoidectomy Completed History of Cholecystectomy Completed History of Permanent pacemaker insertion Completed History of Aortic valve replacement Comp leted Immunization Name Dates Details Tdap on: Aug-2010 Influenza on: 31-May-2011 Fluzone INJ Lot #: [id number] on: 20-Apr-2013 Fluzone Quadrivalent 0.5 ML Intramuscula r Suspension Prefilled Syringe Lot #: [id number] on: 06-Mar-2015 Prevnar 13 Intramuscular Suspension Lot #: [id number] on: 19-Nov-2018 Influenza, seasonal, injectable on: 26-Mar-2019 [...] Details - Status: Name Dates Details Never smoked tobacco (finding) Never smoked tobacco (finding) Vital Signs Date Test Result Details 4-[id number] Systolic blood pressure 124 mm[Hg] Status: Comments : Location: LUE; Position: Sitting Diastolic blood pressure 70 mm[Hg] Status: Comment s: Location: LUE; Position: Sitting Body height 68 in Status: Weight 200 lb Status: Body mass index (BMI) [Ratio] 30.41 kg/m2 Status: Body surface area Derived from formula 2.04 m2 S tatus: Heart Rate 83 /min Status: Comments: Lo cation: L Brachial Artery; 40-Igv-[id number]:48 Systolic blood pressure 134 mm[Hg] Status: Comments : Location: RUE; Position: Sitting Diastolic blood pressure 77 mm[Hg] Status: Comment s: Location: RUE; Position: Sitting Body height 68 in Status: Weight 201 lb Status: Body mass index (BMI) [Ratio] 30.56 kg/m2 Status: Body surface area Derived from formula 2.05 m2 S tatus: Heart Rate 82 /min Status: Comments: Lo cation: R Brachial Artery; Physical Findings 0 Status: Comments: PH Q-9 Adult Depression Screening Body temperature 98.3 f Status: Comments: Me thod: Oral O2 SAT 98 % Status: Comments: So urce: RA Results Date Description Value Details 30-Abh-[id number]:05 [O] Hemoglobin A1c (in office) HEMOGLOBIN A1c 6.8% Plan of Care Name Dates Details Planned Observations Planned Goals not documented Planned Encounters Appointment; RENETTA NUCLEAR On: 10-Aug-2019 8:45 Appointment; MOOK BARBER M .D. On: 10-Aug-2019 15:00 Interventions Provided Medication Changes* amLODIPine Besylate 10 MG Oral Tablet - Renew * Clopidogrel Bisulfate 75 MG Oral Tablet - Renew Plan* 1. CAD: c/o chest tightness on exertion * - plan for nuclear stress test and visit next week given extent of disease * - ETT 06/12/2018 reviewed and 9 min Jovanni without symptoms or ECG changes * - 2V CAD as per HPI. Will cont atorvastatin 80mg daily, will cont asa 75mg daily and clopidogrel 75mg dialy * - plan for PCI of the LAD and LCx at a later stage since we are testing his ability to be on DAPT. So far looks like he is tolerating pretty well and he is asymptomatic. * - cont iron supplementation - HGB as per HPI, reviewed * 2. HTN: borderline high in the setting of dietary indiscretion * - low salt diet * - Cont losartan/HCTZ, move losartan to PM * - amlodipine 10mg daily * 3. Tachyarrhythmia s/p ablation at [facility]: stable * 4. Lipid profile: checked 10/2015, reviewed, LDL 49, LDL 76 as per labs 05/2017-> 38 as per labs 07/2017 and 07/2018 reviewed. * We will continue atorvastatin 80mg daily * 5. DM: * a. A1C 6.2% as per labs 10/2015, 8.8% as per labs 05/2017, 6.6% 11/2017-> 7.5% 05/2018 reviewed * b. cont metformin as per PMD * 6. : now post mini AVR with CT surgery Dr. Mckeon * - no murmur * - TTE 02/24/2018 and 01/2019 reviewed and well seated AV prosthesis * 7. Claudication * - Stress SID normal * - cont asa and clopidogrel * 8 . PPM post extraction * ECG in the last visit reviewed and in NSR * NSR today on ascultation * 9. GI bleed: post AVM treatment * a. patient is following with GI and he will be monitoring his stools * b. HGB stable, continues on iron Instructions Name Dates Details Instructions not documented [...] Problem not documented On: 09-Dec-2017 11:20 Appointment; KATYRICKEY SOL Encounter Diagnosis: Problem not documented On: 16-Dec-2017 [...] Problem not documented On: 22-Jan-2018 9:30 [facility]ment; [facility] Encounter Diagnosis: Problem not documented On: [...] Problem not documented On: 19-May-2018 11:30 Appointment; [facility], STRESS Encounter Diagnosis: Problem not documented On: [...] Problem not documented On: 11-Jan-2019 11:30 [facility] Encounter Diagnosis: Problem not documented On: 05-Feb-2019 10:00 Appointment; MOOK BARBER M .D. Encounter Diagnosis: Problem not documented On: 05-Feb-2019 11:20 Appointment; AMI EDWARDS P.A. Encounter Diagnosis: Problem not documented On: 30-Mar-2019 8:15 Appointment; GLADIS ORTEGA M.D. Encounter Diagnosis: Problem not documented On: 19-Jul-2019 15:45 Appointment; MOOK BARBER M .D. Encounter Diagnosis: Problem not documented On: 06-Aug-2019 10:20
--- OUTSIDE RECORDS SUMMARY | 2019-11-11 21:01 | XMS REPORT | Summary of Care ---
Author Author JORDAN Velarde, JAQUI Waddell Unknown Address Unknown Phone Unavailable Care Team Providers Care Ceo And Co Founder Name Role Phone JONATHAN Velarde, MIR Unavailable Unavailable SUNIL Velarde, MOOK Unavailable Unavailab marcella MATHEWS D.O., JIM Unavailable Unavailable GRACE P.AYanci, AMI Unavailable Unavailable JORDAN Velarde, GLADIS Unavailable Unavailable MALIA GARCIA [place], NAVEEN TOWNSEND Unavailable Unavailable MALIA Velarde, NAVEEN Unavailable Unavailable Sunil GARCIA, Mook Unavailable Unavailable CHRISTINE GARCIA, ERNESTO Hood Unavailable Unavailable Janecka R.N., Kay Unavailable Unavailable GRACE PONCE [place], AMI LANDIS Unavailable Unavailab marcella RICO MD, [...] Active Closed wedge compression fracture of eig [facility] thoracic vertebra, initial encounter (805.2, S22.060A) [...] MOUTH DAILY * Quantity: 90 Refills: 0 NIMESH BARBER M.D.ANTINOS * Start : 27-Apr-2013 Active Accu-Chek SmartView In Vitro Strip TEST TWICE DAILY. * Quantity: 1 Refills: 4 JIM MATHEWS D.O. * Start : 16-Mar-2015 Active 100 Strip Box metFORMIN HCl - 500 MG Oral Tablet TAKE 2 TABLETS BY MOUTH EVERY 12 HOURS WITH FOOD needs to do labs * Quantity: 60 Refills: 0 AMI CARLIN * Start : 16-Mar-2015 Active KassidyTouch Mook In Vitro Strip CHECK BLOOD SUGAR EVERY DAY * Quantity: 100 Refills: 0 AMI CARLIN * Start : 11-Jun-2017 Active OneTouch [place] Lancets Fine MISC USE DIRECTED EVERY DAY [...] MOUTH DAILY * Quantity: 60 Refills: 0 NIMESH BARBER M.D.ANTINOS * Start : 21-Feb-2018 Active Fluocinonide 0.05 % External Ointment APPLY SPARINGLY TO scalp ONCE DAILY * Quantity: 1 Refills: 0 JONATHAN Austin.MORGAN NavasY Active 60 GM Tube Fluocinolone Acetonide Body 0.01 % External Oil Apply once daily to face and body * Quantity: 1 Refills: 0 JONATHAN Austin.Yosef, MIR Active 118.28 ML Bottle ProAir HFA 108 (90 Base) MCG/ACT Inhalation Aerosol Solution INHALE 1 TO 2 PUFFS EVERY 4 TO 6 HOURS NEEDED. * Quantity: 1 Refills: 4 GRACE AMI Boothe * Start : 18-Jun-2018 Active 8.5 GM Inhaler Shingrix 50 MCG Intramuscular Suspension Reconstituted Administer at pharmacy as directed * Quantity: 1 Refills: 0 GRACE AMI Boothe * Start : 19-Nov-2018 Active Ketoconazole 2 % External Cream APPLY A THIN LAYER TO AFFECTED AREA(S) OF FACE TWICE DAILY * Quantity: 1 Refills: 0 GRACE AMI Boothe * Start : 11-Jan-2019 Active 60 GM Tube Ferrous Sulfate 325 (65 Fe) MG Oral Tablet TAKE 1 TABLET EVERY OTHER DAY * Quantity: 45 Refills: 1 GRACE AMI Boothe * Start : 13-Jan-2019 Active Vitamin B-12 1000 MCG Sublingual Tablet Sublingual Dissolve 1 tablet sublingually once daily * Quantity: 90 Refills: 1 AMI CARLIN * Start : 13-Jan-2019 Active Benzonatate 100 MG Oral Capsule TAKE 1 CAPSULE 3 times daily as needed for cough * Quantity: 30 Refills: 1 GRACEAMI WARE * Start : 30-Mar-2019 Active OneTouch Delica Plus [id number] USE DIRECTED EVERY DAY * Quantity: 100 Refills: 0 AMI CARLIN * Start : 13-Apr-2019 Active Losartan Potassium 100 [...] Details Morphine Derivatives (Allergy) Status: A ctive [place] TABS (Allergy) Status: Active oxycodone (Allergy) Status: [...] Influenza on: 31-May-2011 Fluzone INJ Lot #: [id number] on: 20-Apr-2013 Fluzone Quadrivalent 0.5 ML Intramuscula r Suspension Prefilled Syringe Lot #: [id number] on: 06-Mar-2015 Prevnar 13 Intramuscular Suspension Lot #: [id number] on: 19-Nov-2018 Influenza, seasonal, injectable on: 26-Mar-2019 [...] (finding) Vital Signs Date Test Result Details [id number] Systolic blood pressure 134 mm[Hg] Status: Comments : Location: RUE; Position: Sitting Diastolic blood pressure 77 mm[Hg] Status: Comment s: Location: RUE; Position: Sitting Physical Findings 0 Status: Comments: PH Q-9 Adult Depression Screening Body height 68 in Status: Weight 201 lb Status: Body mass index (BMI) [Ratio] 30.56 kg/m2 Status: Body surface area Derived from formula 2.05 m2 S tatus: Body temperature 98.3 f Status: Comments: Me thod: Oral Heart Rate 82 /min Status: Comments: Lo cation: R Brachial Artery; O2 SAT 98 % Status: Comments: So urce: RA Results Date Description Value Details [id number] [O] Hemoglobin A1c (in office) HEMOGLOBIN A1c [...] Dates Details Instructions not documented Encounters Appointment; STEPHANIE RICHARDSON M.D. Encounter Diagnosis: Problem [...] Problem not documented On: 19-May-2018 11:30 Appointment; RENETTA, STRESS Encounter Diagnosis: Problem not documented On: [...] Problem not documented On: 11-Jan-2019 11:30 Appointment; RENETTA, ECHO Encounter Diagnosis: Problem not documented On: 05-Feb-2019 10:00 Appointment; MOOK BARBER M .D. Encounter Diagnosis: Problem not documented On: 05-Feb-2019 11:20 Appointment; AMI EDWARDS P.A. Encounter Diagnosis: Problem not documented On: 30-Mar-2019 8:15 Appointment; GLADIS ORTEGA M.D. Encounter Diagnosis: Problem not documented On: 19-Jul-2019 15:45
--- OUTSIDE RECORDS SUMMARY | 2019-11-11 21:01 | XMS REPORT | Summary of Care ---
Author Author JAQUI Reich R.N. [facility] Unknown Address [facility] Phone Unavailable Care Team Providers Care Carpenters Name Role Phone JONATHAN Velarde, MIR Unavailable Unavailable SUNIL Velarde, MOOK Unavailable Unavailab marcella MATHEWS D.O., JIM Unavailable Unavailable GRACE PDayan, AMI Unavailable Unavailable JORDAN Velarde, GLADIS Unavailable Unavailable MALIA GARCIA [place], NAVEEN TOWNSEND Unavailable Unavailable MALIA Velarde, NAVEEN Unavailable Unavailable Sunil GARCIA, Mook Unavailable Unavailable CHRISTINE GARCIA, ERNESTO Hood Unavailable Unavailable Elizabeth R.NYanci, Kay Unavailable Unavailable GRACE PONCE [place], AMI LANDIS Unavailable Unavailab marcella RICO MD, [...] Active Closed wedge compression fracture of g [facility] thoracic vertebra, initial encounter (805.2, S22.060A) Status: [...] DAILY. * Quantity: 1 Refills: 4 BISI Duncan.JIM Lucio * Start : 16-Mar-2015 Active 100 [...] Start : 30-Mar-2019 Active OneTouch Delica Plus [id number] USE DIRECTED EVERY DAY * Quantity: 100 [...] Details Morphine Derivatives (Allergy) Status: A ctive [place] TABS (Allergy) Status: Active oxycodone (Allergy) Status: [...] Influenza on: 31-May-2011 Fluzone INJ Lot #: [id number] on: 20-Apr-2013 Fluzone Quadrivalent 0.5 ML Intramuscula r Suspension Prefilled Syringe Lot #: [id number] on: 06-Mar-2015 Prevnar 13 Intramuscular Suspension Lot #: [id number] on: 19-Nov-2018 Influenza, seasonal, injectable on: 26-Mar-2019 [...] smoker Vital Signs Date Test Result Details [id number] BP Systolic 134 mm[Hg] Status: Comments: Lo cation: RUE; Position: Sitting BP Diastolic 77 mm[Hg] Status: Comments: Lo cation: RUE; Position: Sitting Physical Findings 0 Status: Comments: PH Q-9 Adult Depression Screening Height 68 in Status: Weight 201 lb Status: Body Mass Index Calculated 30.56 kg/m2 Status: Body Surface Area Calculated 2.05 m2 Status: Temperature 98.3 f Status: Comments: Me thod: Oral Heart Rate 82 /min Status: Comments: Lo cation: R Brachial Artery; O2 SAT 98 % Status: Comments: So urce: RA Results Date Description Value Details 75-[id number] [O] Hemoglobin A1c (in office) HEMOGLOBIN A1c [...] not documented On: 23-Jul-2017 18:20 Appointment; STEPHANIE RICHARDSNO M.D. Encounter Diagnosis: Problem not documented On: [...] Problem not documented On: 12-Jun-2018 10:00 Appointment; MAI EDWARDS P.A. Encounter Diagnosis: Problem not documented [...]
--- OUTSIDE RECORDS SUMMARY | 2019-11-11 21:01 | XMS REPORT | Summary of Care ---
Author Author Thelma Lau, JAQUI Waddell Unknown Address Unknown Phone Unavailable Care Team Providers Care Film Processor Name Role Phone JONATHAN Velarde, MIR Unavailable Unavailable SUNIL Velarde, MOOK Unavailable Unavailab marcella MATHEWS D.O., JIM Unavailable Unavailable GRACE Tl, AMI Unavailable Unavailable MALIA GARCIA [place], NAVEEN TOWNSEND Unavailable Unavailable MALIA Velarde, NAVEEN Unavailable Unavailable Sunil GARCIA, Mook Unavailable Unavailable CHRISTINE GARCIA, ERNESTO Hood Unavailable Unavailable Elizabeth RYanciNYanci, Kay Unavailable Unavailable GRACE PONCE [place], AMI LANDIS Unavailable Unavailab marcella RICO MD, [...] Status: Active Closed wedge compression fracture of [facility] thoracic vertebra, initial encounter (805.2, S22.060A) Status: [...] labs * Quantity: 60 Refills: 0 GRACE P.AMI Moreira * Start : 16-Mar-2015 Active OneTouch Verio In Vitro Strip CHECK BLOOD SUGAR EVERY DAY * Quantity: 100 Refills: 0 GRACE Kt.AAMI Pete * Start : 11-Jun-2017 Active OneTouch Jaren Lancchetan Fine MISC USE DIRECTED EVERY DAY * Quantity: 1 Refills: 0 GRACE P.AAMI Pete * Start : 11-Jun-2017 Active 100 Unit Box Atorvastatin Calcium 80 MG Oral Tablet TAKE 1 TABLET BY MOUTH EVERY DAY * Quantity: 90 Refills: 1 GRACE Kt.AMI Moreira * Start : 13-Feb-2018 Active Clopidogrel Bisulfate [...] body * Quantity: 1 Refills: 0 JONATHAN Austin.MIR Navas Active 118.28 ML Bottle ProAir HFA 108 (90 Base) MCG/ACT Inhalation Aerosol Solution INHALE 1 TO 2 PUFFS EVERY 4 TO 6 HOURS NEEDED. * Quantity: 1 Refills: 4 GRACE P.A.AMI * Start : 18-Jun-2018 Active 8.5 GM Inhaler Shingrix 50 MCG Intramuscular Suspension Reconstituted Administer at pharmacy as directed * Quantity: 1 Refills: 0 GRACE P.A., AMI * Start : 19-Nov-2018 Active Ketoconazole 2 [...] Start : 30-Mar-2019 Active OneTouch Delica Plus [id number] USE DIRECTED EVERY DAY * Quantity: 100 [...] BARBER M.D. * Start : 30-Jun-2019 Active Allergies and Adverse Reactions Name Dates Details Morphine Derivatives (Allergy) Status: A ctive [place] TABS (Allergy) Status: Active oxycodone (Allergy) Status: [...] Influenza on: 31-May-2011 Fluzone INJ Lot #: [id number] on: 20-Apr-2013 Fluzone Quadrivalent 0.5 ML Intramuscula r Suspension Prefilled Syringe Lot #: [id number] on: 06-Mar-2015 Prevnar 13 Intramuscular Suspension Lot #: [id number] on: 19-Nov-2018 Influenza, seasonal, injectable on: 26-Mar-2019 [...] On: 06-Aug-2019 10:20 Interventions Provided Medication Changes* hydroCHLOROthiazide 12.5 MG Oral Tablet - Start * Losartan Potassium 100 MG Oral Tablet - Start Instructions Name Dates Details Instructions not documented [...]
--- OUTSIDE RECORDS SUMMARY | 2019-11-11 21:01 | XMS REPORT | Summary of Care ---
Author Author JAQUI Reich R.N. Unknown Address [facility] Phone Unavailable Care Team Providers Care Licensed Mental Health Counselor Name Role Phone JONATHAN Velarde, MIR Unavailable Unavailable SUNIL Velarde, MOOK Unavailable Unavailab marcella MATHEWS D.O., JIM Unavailable Unavailable GRACE PDayan, AMI Unavailable Unavailable JORDAN Velarde, GLADIS Unavailable Unavailable MALIA GARCIA [place], NAVEEN TOWNSEND Unavailable Unavailable MALIA Velarde, NAVEEN Unavailable Unavailable Sunil GARCIA, Mook Unavailable Unavailable CHRISTINE GARCIA, ERNESTO Hood Unavailable Unavailable Elizabeth R.NYanci, Kay Unavailable Unavailable GRACE PONCE [place], AMI LANDIS Unavailable Unavailab marcella RICO MD, [...] Status: Active Closed wedge compression fracture of [facility] thoracic vertebra, initial encounter (805.2, S22.060A) [...] AMI CARLIN * Start : 16-Mar-2015 Active Janiauch Verchristina In Vitro Strip CHECK BLOOD SUGAR EVERY DAY * Quantity: 100 Refills: 0 AMI CARLIN * Start : 11-Jun-2017 Active KassidyTouch Jaren Salazar Fine MISC USE DIRECTED EVERY DAY * Quantity: 1 Refills: 0 GRACEAMI WARE * Start : 11-Jun-2017 Active 100 Unit [...] MIR CASTILLO M.D. Active 118.28 ML Bottle ProAir HFA 108 (90 Base) MCG/ACT Inhalation Aerosol Solution INHALE 1 TO 2 PUFFS EVERY 4 TO 6 HOURS NEEDED. * Quantity: 1 Refills: 4 GRACE Kt.AMI Moreira * Start : 18-Jun-2018 Active 8.5 GM [...] Start : 30-Mar-2019 Active OneTouch Delica Plus [id number] USE DIRECTED EVERY DAY * Quantity: 100 [...] Details Morphine Derivatives (Allergy) Status: A ctive [place] TABS (Allergy) Status: Active oxycodone (Allergy) Status: [...] Influenza on: 31-May-2011 Fluzone INJ Lot #: [id number] on: 20-Apr-2013 Fluzone Quadrivalent 0.5 ML Intramuscula r Suspension Prefilled Syringe Lot #: [id number] on: 06-Mar-2015 Prevnar 13 Intramuscular Suspension Lot #: [id number] on: 19-Nov-2018 Influenza, seasonal, injectable on: 26-Mar-2019 [...] smoker Vital Signs Date Test Result Details [id number] BP Systolic 134 mm[Hg] Status: Comments: Lo [...] urce: RA Results Date Description Value Details 20-Cor-502721:05 [O] Hemoglobin A1c (in office) HEMOGLOBIN A1c 6.8% Plan of Care Name Dates Details Planned Observations Planned Goals not documented Planned Encounters Appointment; MOOK BARBER M .D. On: 06-Aug-2019 10:20 Interventions Provided Labs/Procedures/Imaging* [O] Hemoglobin A1c (in office); Done: 19 Jul 2019 Medications/Immunizations Administered* MethylPREDNISolone Acetate 80 MG/ML Injection Suspension Instructions Name Dates Details Instructions not documented [...] Problem not documented On: 11-Jan-2019 11:30 [facility] Diagnosis: Problem not documented On: 05-Feb-2019 10:00 Appointment; MOOK BARBER M .D. Encounter Diagnosis: Problem not documented On: 05-Feb-2019 11:20 Appointment; AMI EDWARDS P.A. Encounter Diagnosis: Problem not documented On: 30-Mar-2019 8:15 Appointment; GLADIS ORTEGA M.D. Encounter Diagnosis: Problem not documented On: 19-Jul-2019 15:45
--- OUTSIDE RECORDS SUMMARY | 2019-11-11 21:01 | XMS REPORT | Summary of Care ---
Author JAQUI Herrera Organization Unknown Address Unknown Phone Unavailable Care Team Providers Care Technical Proposal Writer Name Role Phone JONATHAN Velarde, MIR Unavailable Unavailable Darleen Villalta Unavailable Unavailable SUNIL Velarde, MOOK Unavailable Unavailab marcella MATHEWS D.O., JIM Unavailable Unavailable GRACE P.A., AMI Unavailable Unavailable MALIA GARCIA [place], NAVEEN TOWNSEND Unavailable Unavailable MALIA Velarde, NAVEEN Unavailable Unavailable Sunil GARCIA, Mook Unavailable Unavailable CHRISTINE GARCIA, ERNESTO Hood Unavailable Unavailable Janmamta R.NYanci, Kay Unavailable Unavailable GRACE PONCE [place], AMI LANDIS Unavailable Unavailab marcella RICO MD, [...] Active Closed wedge compression fracture of eig h thoracic vertebra, initial encounter (805.2, S22.060A) [...] do labs * Quantity: 60 Refills: 0 GRACEAMI WARE * Start : 16-Mar-2015 Active OneTouch Verio [...] DAILY * Quantity: 1 Refills: 0 JONATHAN Austin.MIR Navas Active 60 GM Tube Fluocinolone Acetonide Body [...] Start : 30-Mar-2019 Active OneTouch Delica Plus [id number] USE DIRECTED EVERY DAY * Quantity: 100 [...] Details Morphine Derivatives (Allergy) Status: A ctive [place] TABS (Allergy) Status: Active oxycodone (Allergy) Status: [...] Influenza on: 31-May-2011 Fluzone INJ Lot #: [id number] on: 20-Apr-2013 Fluzone Quadrivalent 0.5 ML Intramuscula r Suspension Prefilled Syringe Lot #: [id number] on: 06-Mar-2015 Prevnar 13 Intramuscular Suspension Lot #: [id number] on: 19-Nov-2018 Influenza, seasonal, injectable on: 26-Mar-2019 [...] (finding) Vital Signs Date Test Result Details [id number] Systolic blood pressure 124 mm[Hg] Status: Comments : Location: E; Position: Sitting Diastolic blood pressure 70 mm[Hg] Status: Comment s: Location: E; Position: Sitting Body height 68 in Status: Weight 200 lb Status: Body mass index (BMI) [Ratio] 30.41 kg/m2 Status: Body surface area Derived from formula 2.04 m2 S tatus: Heart Rate 83 /min Status: Comments: Lo cation: L Brachial Artery; [id number] Systolic blood pressure 134 mm[Hg] Status: Comments [...] urce: RA Results Date Description Value Details [id number] [O] Hemoglobin A1c (in office) HEMOGLOBIN A1c 6.8% Plan of Care Name Dates Details Planned Observations Planned Goals not documented Planned Encounters Appointment; RENETTA, NUCLEAR On: 10-Aug-2019 8:45 Appointment; MOOK BARBER M .D. On: 10-Aug-2019 15:00 Interventions Provided Labs/Procedures/Imaging* [N] Nuclear Test-Adenosine Stress Perfusion; To Be Done: 06 Aug 2019 Instructions Name Dates Details Instructions not documented [...] Problem not documented On: 22-Jan-2018 9:30 [facility] Encounter Diagnosis: Problem not documented On: 24-Feb-2018 [...] Problem not documented On: 11-Jan-2019 11:30 Appointment; [facility], ECHO Encounter Diagnosis: Problem not documented On: 05-Feb-2019 10:00 Appointment; MOOK BARBER M .D. Encounter Diagnosis: Problem not documented On: 05-Feb-2019 11:20 Appointment; AMI EDWARDS P.A. Encounter Diagnosis: Problem not documented On: 30-Mar-2019 8:15 Appointment; GLADIS ORTEGA M.D. Encounter Diagnosis: Problem not documented On: 19-Jul-2019 15:45
--- OUTSIDE RECORDS SUMMARY | 2019-11-11 21:02 | XMS REPORT | Summary of Care ---
Author Author JAQUI CARLIN [facility] Unknown Address Unknown Phone Unavailable Care Team Providers Care Agile Project Manager Name Role Phone JONATHAN Velarde, MIR Unavailable Unavailable SUNIL Velarde, MOOK Unavailable Unavailab marcella MATHEWS D.O., JIM Unavailable Unavailable GRACE Boothe, AMI Unavailable Unavailable MALIA GARCIA [place], NAVEEN TOWNSEND Unavailable Unavailable MALIA Velarde, NAVEEN Unavailable Unavailable Sunil GARCIA, Mook Unavailable Unavailable CHRISTINE GARCIA, ERNESTO Hood Unavailable Unavailable Elizabeth R.NYanci, Kay Unavailable Unavailable GRACE PA [place], AMI LANDIS Unavailable Unavailab marcella RICO MD, [...] Status: Active Snoring (786.09, R06.83) Status: Active Rash (782.1, R21) Status: Active [...] on exertion (7 86.05, R06.02) Status: Active Left groin pain (789.04, R10.32) Status: Active Inguinal hernia (550.90, K40.90) Status: Active Pleural effusion on right (511.9, [...] Active Closed wedge compression fracture of eig hth thoracic vertebra, initial encounter (805.2, S22.060A) Status: [...] Obesity (BMI 30.0-34.9) (278.00, E66.9) Status: Active NSVT (nonsustained ventricular tachycard ia) (427.1, I47.2) Status: Active S/P aortic valve replacement (V43.3, Z95 .2) Status: Active Chest pain (786.50, R07.9) Status: Active CAD (coronary artery disease) (414.00, I 25.10) Status: Active Aortic valve disease (424.1, I35.9) Status: Active Essential (primary) hypertension (401.9, I10) Status: Active Hyperlipidemia, unspecified hyperlipidem ia type (272.4, E78.5) Status: Active Diabetes mellitus type 2, uncontrolled ( 250.02, E11.65) Status: Active Severe aortic stenosis (424.1, I35.0) Status: Active Severe aortic stenosis (424.1, I35.0) Status: Active Medications Name Dates Details Aspirin [...] EVERY DAY * Quantity: 100 Refills: 0 GRACEAMI WARE * Start : 11-Jun-2017 Active OneTouch Delica Lancets Fine MISC USE DIRECTED EVERY DAY * Quantity: 1 Refills: 0 GRACE AMI Boothe * Start : 11-Jun-2017 Active 100 Unit Box Atorvastatin Calcium 80 MG Oral Tablet TAKE 1 TABLET BY MOUTH EVERY DAYneeds office visit * Quantity: 30 Refills: 0 GRACEAMI WARE * Start : 13-Feb-2018 Active Clopidogrel Bisulfate 75 MG Oral Tablet TAKE 1 TABLET BY MOUTH DAILY * Quantity: 90 Refills: 3 MOOK BARBER M.D. * Start : 21-Feb-2018 Active Fluocinonide 0.05 % External Ointment APPLY SPARINGLY TO scalp ONCE DAILY * Quantity: 1 Refills: 0 JONATHAN M.DYanci, MIR Active 60 GM Tube Fluocinolone Acetonide [...] Start : 30-Mar-2019 Active OneTouch Delica Plus [id number] USE DIRECTED EVERY DAY * Quantity: 100 [...] Details Morphine Derivatives (Allergy) Status: A ctive [place] TABS (Allergy) Status: Active oxycodone (Allergy) Status: [...] Influenza on: 31-May-2011 Fluzone INJ Lot #: [id number] on: 20-Apr-2013 Fluzone Quadrivalent 0.5 ML Intramuscula r Suspension Prefilled Syringe Lot #: [id number] on: 06-Mar-2015 Prevnar 13 Intramuscular Suspension Lot #: [id number] on: 19-Nov-2018 Influenza, seasonal, injectable on: 26-Mar-2019 [...] (finding) Vital Signs Date Test Result Details No Known Vitals to report Results Date Description Value Details Results not documented Plan of Care Name Dates Details Planned Observations Planned Goals not documented Planned Encounters Appointment; MOOK BARBER M .D. On: 10-Mar-2020 9:00 Interventions Provided Medication Changes* Atorvastatin Calcium 80 MG Oral Tablet - Renew Instructions Name Dates Details Instructions [...] Diagnosis: Problem not documented On: 06-Aug-2019 10:20 Appointment; [facility], NUCLEAR Encounter Diagnosis: Problem not documented On: 10-Aug-2019 8:45 Appointment; MOOK BARBER M .D. Encounter Diagnosis: Problem not documented On: 10-Aug-2019 15:00 Appointment; MOOK BARBER M .D. Encounter Diagnosis: Problem not documented On: 07-Sep-2019 9:40
--- OUTSIDE RECORDS SUMMARY | 2019-11-11 21:02 | XMS REPORT | Summary of Care ---
Author Author SUNIL Velarde, [facility]I [facility] Unknown Address Unknown Phone Unavailable Care Team Providers Care Political Advisor Name Role Phone JONATHAN Velarde, MIR Unavailable Unavailable SUNIL Velarde, MOOK Unavailable Unavailab marcella MATHEWS D.O., JIM Unavailable Unavailable GRACE P.AYanci, AMI Unavailable Unavailable MALIA GARCIA [place], NAVEEN TOWNSEND Unavailable Unavailable MALIA Velarde, NAVEEN Unavailable Unavailable Sunil GARCIA, Mook Unavailable Unavailable CHRISTINE GARCIA, ERNESTO Hood Unavailable Unavailable Janecka R.N., Kay Unavailable Unavailable GRACE PONCE [place], AMI LANDIS Unavailable Unavailab marcella RICO MD, [...] Active Closed wedge compression fracture of [facility] thoracic vertebra, initial encounter (805.2, S22.060A) [...] valve replacement (V43.3, Z95 .2) Status: Active CAD (coronary artery disease) (414.00, I 25.10) Status: Active Diabetes mellitus type 2, uncontrolled ( 250.02, E11.65) Status: Active Hyperlipidemia, unspecified hyperlipidem ia type (272.4, E78.5) Status: Active Essential (primary) hypertension (401.9, I10) Status: Active Aortic valve disease (424.1, I35.9) Status: Active Medications Name Dates Details Aspirin 81 MG TABS TAKE ONE TABLET BY MOUTH ONCE DAILY Quantity: 30 MOOK BARBER M.D. Active amLODIPine Besylate 10 MG Oral Tablet TAKE 1 TABLET BY MOUTH DAILY * Quantity: 90 Refills: 3 MOOK BARBER M.D. * Start : 27-Apr-2013 Active Accu-Chek SmartView In Vitro Strip TEST TWICE DAILY. * Quantity: 1 Refills: 4 JIM AMTHEWS D.O. * Start : 16-Mar-2015 Active 100 [...] DAILY * Quantity: 1 Refills: 0 JONATHAN Austin.DMIR Pete Active 60 GM Tube Fluocinolone Acetonide [...] Start : 30-Mar-2019 Active OneTouch Delica Plus [id number] USE DIRECTED EVERY DAY * Quantity: 100 [...] Details Morphine Derivatives (Allergy) Status: A ctive [place] TABS (Allergy) Status: Active oxycodone (Allergy) Status: [...] Influenza on: 31-May-2011 Fluzone INJ Lot #: [id number] on: 20-Apr-2013 Fluzone Quadrivalent 0.5 ML Intramuscula r Suspension Prefilled Syringe Lot #: [id number] on: 06-Mar-2015 Prevnar 13 Intramuscular Suspension Lot #: [id number] on: 19-Nov-2018 Influenza, seasonal, injectable on: 26-Mar-2019 [...] (finding) Vital Signs Date Test Result Details [id number] Systolic blood pressure 124 mm[Hg] Status: Comments : Location: LUE; Position: Sitting Diastolic blood pressure 70 mm[Hg] Status: Comment s: Location: LUE; Position: Sitting Body height 68 in Status: Weight 200 lb Status: Body mass index (BMI) [Ratio] 30.41 kg/m2 Status: Body surface area Derived from formula 2.04 m2 S tatus: Heart Rate 83 /min Status: Comments: Lo cation: L Brachial Artery; :48 Systolic blood pressure 134 mm[Hg] Status: Comments [...] urce: RA Results Date Description Value Details :05 [O] Hemoglobin A1c (in office) HEMOGLOBIN A1c 6.8% Plan of Care Name Dates Details Planned Observations Planned Goals not documented Planned Encounters Appointment; MOOK BARBER M .D. On: 10-Aug-2019 15:00 Interventions Provided Plan* 1. CAD: c/o chest tightness on [...] daily * 3. Tachyarrhythmia s/p ablation at [facility]: stable * 4. Lipid profile: checked 10/2015, [...] Problem not documented On: 09-Dec-2017 11:20 Appointment; [facility] Encounter Diagnosis: Problem not documented On: [...] Problem not documented On: 22-Jan-2018 9:30 Appointment; [facility], ECHO Encounter Diagnosis: Problem not documented On: [...]
--- OUTSIDE RECORDS SUMMARY | 2019-11-11 21:02 | XMS REPORT | Summary of Care ---
Author Author SUNIL Velarde, [facility] Unknown Address Unknown Phone Unavailable Care Team Providers Care Dean Name Role Phone JONATHAN Velarde, MIR Unavailable Unavailable SUNIL Velarde, MOOK Unavailable Unavailab marcella MATHEWS D.O., JIM Unavailable Unavailable GRACE P.AYanci, AMI Unavailable Unavailable MALIA GARCIA [place], NAVEEN TOWNSEND [...] Status: Active Closed wedge compression fracture of [facility] thoracic vertebra, initial encounter (805.2, S22.060A) [...] valve replacement (V43.3, Z95 .2) Status: Active Diabetes mellitus type 2, uncontrolled ( 250.02, E11.65) Status: Active Chest pain (786.50, R07.9) Status: Active CAD (coronary artery disease) (414.00, I 25.10) Status: Active Aortic valve disease (424.1, I35.9) Status: Active Essential (primary) hypertension (401.9, I10) Status: Active Hyperlipidemia, unspecified hyperlipidem ia type (272.4, E78.5) Status: Active Medications Name Dates Details Aspirin [...] Start : 30-Mar-2019 Active OneTouch Delica Plus Sxhyli91C USE DIRECTED EVERY DAY * Quantity: 100 [...] Details Morphine Derivatives (Allergy) Status: A ctive [place] TABS (Allergy) Status: Active oxycodone (Allergy) Status: [...] Influenza on: 31-May-2011 Fluzone INJ Lot #: [id number] on: 20-Apr-2013 Fluzone Quadrivalent 0.5 ML Intramuscula r Suspension Prefilled Syringe Lot #: [id number] on: 06-Mar-2015 Prevnar 13 Intramuscular Suspension Lot #: [id number] on: 19-Nov-2018 Influenza, seasonal, injectable on: 26-Mar-2019 [...] (finding) Vital Signs Date Test Result Details [id number] Systolic blood pressure 138 mm[Hg] Status: Comments : Location: LUE; Position: Sitting Diastolic blood pressure 71 mm[Hg] Status: Comment s: Location: LUE; Position: Sitting Body height 68 in Status: Weight 196.125 lb Status: Body mass index (BMI) [Ratio] 29.82 kg/m2 Status: Body surface area Derived from formula 2.03 m2 S tatus: Heart Rate 73 /min Status: Comments: Lo cation: L Radial; Quality: Normal Results Date Description Value Details Results not documented Plan of Care Name Dates Details Planned Observations Planned Goals not documented Interventions Provided Plan* 1. CAD: post PCI of LAD artery. * - 08/10/19 nuclear stress test given extent of disease showed + inferior ischemia * - ETT 06/12/2018 reviewed and 9 min Jovanni without symptoms or ECG changes * - 2V CAD as per HPI. Will cont atorvastatin 80mg daily, will cont asa 75mg daily and clopidogrel 75mg dialy * - plan for LHC/PCI since he was able to tolerate DAPT. * - cont iron supplementation - HGB as per HPI, reviewed * 2. HTN: borderline high in the setting of dietary indiscretion * - low salt diet * - Cont losartan/HCTZ, move losartan to PM * - amlodipine 10mg daily * 3. Tachyarrhythmia s/p ablation at [facility]: stable * 4. Lipid profile: checked 10/2015, [...] last visit reviewed and in NSR * 9. GI bleed: post AVM treatment [...] Problem not documented On: 22-Jan-2018 9:30 Appointment; [facility] Encounter Diagnosis: Problem not documented On: 24-Feb-2018 [...] Problem not documented On: 06-Aug-2019 10:20 Appointment; [facility], NUCLEAR Encounter Diagnosis: Problem not documented On: 10-Aug-2019 8:45 Appointment; MOOK BARBER M .D. Encounter Diagnosis: Problem not documented On: 10-Aug-2019 15:00 Appointment; MOOK BARBER M .D. Encounter Diagnosis: Problem not documented On: 07-Sep-2019 9:40
--- OUTSIDE RECORDS SUMMARY | 2019-11-11 21:02 | XMS REPORT | Summary of Care ---
Author Author JAQUI Peck M.A. Organization Unknown Address [facility] Phone Unavailable Care Team Providers Care Carton Waxing Machine Operator Name Role Phone JONATHAN Velarde, MIR Unavailable Unavailable Cisco Hutson, Marizol Unavailable Unavailable SUNIL Velarde, MOOK Unavailable Unavailab marcella MATHEWS D.O., JIM Unavailable Unavailable GRACEFRED Boothe, AMI Unavailable Unavailable MALIA GARCIA [place], NAVEEN TOWNSEND [...] Active Closed wedge compression fracture of g [facility] thoracic vertebra, initial encounter (805.2, [...] 2, uncontrolled ( 250.02, E11.65) Status: Active Medications Name Dates Details Aspirin [...] CARLIN * Start : 16-Mar-2015 Active OneTouch Verchristina In Vitro Strip CHECK BLOOD SUGAR [...] Start : 30-Mar-2019 Active OneTouch Delica Plus Elsuip65D USE DIRECTED EVERY DAY * Quantity: 100 [...] Influenza on: 31-May-2011 Fluzone INJ Lot #: [id number] on: 20-Apr-2013 Fluzone Quadrivalent 0.5 ML Intramuscula r Suspension Prefilled Syringe Lot #: [id number] on: 06-Mar-2015 Prevnar 13 Intramuscular Suspension Lot #: [id number] on: 19-Nov-2018 Influenza, seasonal, injectable on: 26-Mar-2019 [...] (finding) Vital Signs Date Test Result Details [id number] Systolic blood pressure 138 mm[Hg] Status: Comments [...] MOOK BARBER M .D. On: 10-Mar-2020 9:00 Instructions Name Dates Details Instructions not documented [...] not documented On: 16-Dec-2017 9:15 Appointment; AMI EDWARSD P.A. Encounter Diagnosis: Problem not documented On: [...] documented On: 20-Mar-2018 8:15 Appointment; AMI EDWARDS P.AYanci Encounter Diagnosis: Problem not documented On: 21-Apr-2018 [...] Problem not documented On: 06-Aug-2019 10:20 Appointment; [facility]UC[facility] Encounter Diagnosis: Problem not documented On: 10-Aug-2019 8:45 Appointment; MOOK BARBER M .D. Encounter Diagnosis: Problem not documented On: 10-Aug-2019 15:00 Appointment; MOOK BARBER M .D. Encounter Diagnosis: Problem not documented On: 07-Sep-2019 9:40
--- OUTSIDE RECORDS SUMMARY | 2019-11-11 21:02 | XMS REPORT | Summary of Care ---
Author Author JAQUI CARLIN Organization Unknown Address Unknown Phone Unavailable Care Team Providers Care Industrial Accountant Name Role Phone JONATHAN Velarde, MIR Unavailable Unavailable SUNIL Velarde, MOOK Unavailable Unavailab marcella MATHEWS D.O., JIM Unavailable Unavailable GRACE Boothe, AMI Unavailable Unavailable MALIA GARCIA [place], NAVEEN TOWNSEND Unavailable Unavailable JONATHAN GARCIA NH, MIR Cedillo Unavailable Unavailable MALIA Velarde, NAVEEN Unavailable Unavailable Sunil GARCIA, Mook Unavailable Unavailable CHRISTINE GARCIA, ERNESTO Hood Unavailable Unavailable Janmamta R.NYanci, Kay Unavailable Unavailable GRACE SERRA NH, AMI LANDIS Unavailable Unavailab marcella RICO [...] depression screening (V79.0, Z1 3.31) Status: Active Need for hepatitis C screening [...] Status: Active Pruritus (698.9, L29.9) Status: Active Ptosis of left eyelid (374.30, H02.402) Status: Active Bilateral impacted cerumen (380.4, H61.2 3) Status: Active Decreased hearing of both ears (389.9, H 91.93) Status: Active Sensorineural hearing loss, bilateral (3 89.18, H90.3) Status: Active Mid back pain (724.5, M54.9) Status: Active Never smoker Status: Active Closed wedge compression fracture of [facility] thoracic vertebra, initial encounter (805.2, S22.060A) [...] Active Erectile dysfunction (607.84, N52.9) Status: Active Claudication, intermittent (443.9, I73.9 ) Status: Active Infected pacemaker, 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, T82.7XXD) Status: Active Allergic rhinitis (477.9, J30.9) Status: [...] Severe aortic stenosis (424.1, I35.0) Status: Active Type 2 diabetes mellitus (250.00, E11.9) Status: Active Iron deficiency anemia (280.9, D50.9) Status: Active Medications Name Dates Details Aspirin 81 MG TABS TAKE ONE TABLET BY MOUTH ONCE DAILY Quantity: 30 CHARITAKIS M.D., MOOK Active amLODIPine Besylate 10 MG Oral Tablet TAKE 1 TABLET BY MOUTH DAILY * Quantity: 90 Refills: 3 MOOK BARBER M.D. * Start : 27-Apr-2013 Active Accu-Chek SmartView In Vitro Strip TEST TWICE DAILY. * Quantity: 1 Refills: 4 YEH D.O. BRIANN * Start : 16-Mar-2015 Active 100 Strip Box metFORMIN HCl - 500 MG Oral Tablet TAKE 2 TABLETS BY MOUTH EVERY 12 HOURS WITH FOOD needs to do labs * Quantity: 60 Refills: 0 GRACE P.A.AMI * Start : 16-Mar-2015 Active OneTouch Verio In Vitro Strip CHECK BLOOD SUGAR EVERY DAY * Quantity: 100 Refills: 0 GRACE P.A.AMI * Start : 11-Jun-2017 Active OneTouch Delica Lancets Fine MISC USE DIRECTED EVERY DAY * Quantity: 1 Refills: 0 GRACE P.A.AMI * Start : 11-Jun-2017 Active 100 Unit Box Atorvastatin Calcium 80 MG Oral Tablet TAKE 1 TABLET BY MOUTH EVERY DAYneeds office visit * Quantity: 30 Refills: 0 GRACE P.A.AMI * Start : 13-Feb-2018 Active Clopidogrel Bisulfate [...] body * Quantity: 1 Refills: 0 JONATHAN M.D., MIR Active 118.28 ML Bottle ProAir HFA 108 (90 Base) MCG/ACT Inhalation Aerosol Solution INHALE 1 TO 2 PUFFS EVERY 4 TO 6 HOURS NEEDED. * Quantity: 1 Refills: 4 GRACE P.A.AMI * Start : 18-Jun-2018 Active 8.5 GM Inhaler Shingrix 50 MCG Intramuscular Suspension Reconstituted Administer at pharmacy as directed * Quantity: 1 Refills: 0 GRACE P.A.AMI * Start : 19-Nov-2018 Active Ketoconazole 2 % External Cream APPLY A THIN LAYER TO AFFECTED AREA(S) OF FACE TWICE DAILY * Quantity: 1 Refills: 0 AMI CARLIN Start : 11-Jan-2019 Active 60 GM Tube Ferrous Sulfate 325 (65 Fe) MG Oral Tablet TAKE 1 TABLET EVERY OTHER DAY * Quantity: 45 Refills: 1 AMI CARLIN * Start : 13-Jan-2019 Active Vitamin B-12 1000 MCG Sublingual Tablet Sublingual Dissolve 1 tablet sublingually once daily * Quantity: 90 Refills: 1 AMI CARLIN Start : 13-Jan-2019 Active Benzonatate 100 MG Oral Capsule TAKE 1 CAPSULE 3 times daily as needed for cough * Quantity: 30 Refills: 1 AMI CARLIN Start : 30-Mar-2019 Active OneTouch Delica Plus Txegqj04A USE DIRECTED EVERY DAY * Quantity: 100 [...] (V1 5.88, Z91.81) Status: Resolved History of bacteremia (V12.09, Z87.898) Status: Resolved History of Childhood asthma (493.00, [...] 9) Status: Resolved Procedures Procedure Dates Details [QL] HEMOGLOBIN A1c Date: 14-Oct-2019 [QL] MICROALBUMIN, RANDOM URINE (W/CREATININE) Date: 2019 [Q] LIPID PANEL WITH REFLEX TO DIRECT LDL Date: 14-Oct-2019 [QL] CMP W/EGFR Date: 14-Oct-2019 [QL] CBC (INCLUDES DIFF/PLT) Date: 14-Oct-2019 [QL] FERRITIN Date: 14-Oct-2019 [QL] IRON AND TOTAL IRON BINDING CAPACITY Date: 14-Oct-2019 History of Tonsillectomy With Adenoidectomy Completed History of Cholecystectomy Completed History of Permanent pacemaker insertion Completed History of Aortic valve replacement Comp leted Immunization Name Dates Details Tdap on: Aug-2010 Influenza on: 31-May-2011 Fluzone INJ Lot #: [id number] on: 20-Apr-2013 Fluzone Quadrivalent 0.5 ML Intramuscula r Suspension Prefilled Syringe Lot #: [id number] on: 06-Mar-2015 Pneumovax 23 25 MCG/0.5ML Injection Inje ctable on: 19-Nov-2018 Prevnar 13 Intramuscular Suspension Lot #: [id number] on: 19-Nov-2018 Influenza, seasonal, injectable on: 26-Mar-2019 Influenza, seasonal, injectable on: 26-Mar-2019 Family History [...] of Care Name Dates Details Planned Observations [QL] HEMOGLOBIN A1c On: 17-Oct-2019 Intent [QL] MICROALBUMIN, RANDOM URINE (W/CREATININE) On: Oct-2019 Intent [Q] LIPID PANEL WITH REFLEX TO DIRECT LDL On: 020 Intent [QL] CMP W/EGFR On: 17-Oct-2019 Intent [QL] CBC (INCLUDES DIFF/PLT) On: 17-Oct-2019 Intent [QL] FERRITIN On: 17-Oct-2019 Intent [QL] IRON AND TOTAL IRON BINDING CAPACITY On: 020 Intent Planned Goals not documented Planned Encounters Appointment; AMI EDWARDS P.A. On: 14-Oct-2019 10:00 Appointment; MOOK BARBER M .D. On: 10-Mar-2020 [...] Problem not documented On: 22-Jan-2018 9:30 [facility] Encounter Diagnosis: Problem not documented On: [...] Problem not documented On: 19-May-2018 11:30 Appointment; [facility], STRESS Encounter Diagnosis: Problem not documented On: 12-Jun-2018 9:00 Appointment; MOOK BARBER M .D. Encounter Diagnosis: Problem not documented On: 12-Jun-2018 10:00 Appointment; AMI EDWARDS P.A. Encounter Diagnosis: Problem not documented On: 18-Jun-2018 11:30 Appointment; AMI EDWARDS P.A. Encounter Diagnosis: Problem not documented On: 20-Aug-2018 8:45 Appointment; AIM EDWARDS P.A. Encounter Diagnosis: Problem not documented [...] Problem not documented On: 06-Aug-2019 10:20 Appointment; ELOISA-, NUCLEAR Encounter Diagnosis: Problem not documented On: 10-Aug-2019 8:45 Appointment; MOOK BARBER M .D. Encounter Diagnosis: Problem not documented On: 10-Aug-2019 15:00 Appointment; MOOK BARBER M .D. Encounter Diagnosis: Problem not documented On: 07-Sep-2019 9:40 Appointment; AMI EDWARDS P.A. Encounter Diagnosis: Problem not documented On: 14-Oct-2019 10:00
--- OUTSIDE RECORDS SUMMARY | 2019-11-11 21:02 | XMS REPORT | Summary of Care ---
[facility] Unknown Address Unknown Phone Unavailable Care Team Providers Care Manager Of Disaster Recovery Name Role Phone JONATHAN Velarde, MIR Unavailable Unavailable SUNIL Velarde, MOOK Unavailable Unavailab marcella MATHEWS D.O., JIM Unavailable Unavailable GRACE P.A., AMI Unavailable Unavailable MALIA GARCIA DC, NAVEEN TOWNSEND Unavailable Unavailable JONATHAN GARCIA DC, MIR Cedillo Unavailable Unavailable MALIA Velarde, NAVEEN Unavailable Unavailable Sunil GARCIA, Mook Unavailable Unavailable CHRISTINE GARCIA, ERNESTO Hood Unavailable Unavailable Janecka R.N., Kay Unavailable Unavailable GRACE PONCE [place], AMI LANDIS Unavailable Unavailab marcella RICO MD, [...] Status: Active Closed wedge compression fracture of [facility] thoracic vertebra, initial encounter (805.2, [...] once daily * Quantity: 90 Refills: 1 GRACEAMI WARE * Start : 13-Jan-2019 Active Benzonatate 100 MG Oral Capsule TAKE 1 CAPSULE 3 times daily as needed for cough * Quantity: 30 Refills: 1 GRACEAMI WARE * Start : 30-Mar-2019 Active OneTouch Delica Plus [id number] USE DIRECTED EVERY DAY * Quantity: 100 Refills: 0 GRACEAMI WARE * Start : 13-Apr-2019 Active Losartan Potassium [...] Oral Tablet Therapy Pack * Refills: 0 M.A. * Start : 19-Jul-2019 Active 55 Tablet Pack Allergies and Adverse Reactions Name Dates Details Morphine Derivatives (Allergy) Status: A ctive [place] TABS (Allergy) Status: Active oxycodone (Allergy) Status: [...] Influenza on: 31-May-2011 Fluzone INJ Lot #: [id number] on: 20-Apr-2013 Fluzone Quadrivalent 0.5 ML Intramuscula r Suspension Prefilled Syringe Lot #: [id number] on: 06-Mar-2015 Prevnar 13 Intramuscular Suspension Lot #: [id number] on: 19-Nov-2018 Influenza, seasonal, injectable on: 26-Mar-2019 [...] Planned Goals not documented Planned Encounters Appointment; MIR CASTILLO M.D. On: 14-Oct-2019 9:45 Appointment; MOOK BARBER M .D. On: 10-Mar-2020 [...] not documented On: 21-Apr-2018 10:45 Appointment; AMI EWDARDS P.A. Encounter Diagnosis: Problem not documented On: [...] Problem not documented On: 10-Aug-2019 15:00 Appointment; OMOK BARBER M .D. Encounter Diagnosis: Problem not documented On: 07-Sep-2019 9:40
--- OUTSIDE RECORDS SUMMARY | 2019-11-11 21:02 | XMS REPORT | Summary of Care ---
Author JAQUI Zarco Organization Unknown Address [facility] Phone Unavailable Care Team Providers Care Chemicals Fermentation Operator Name Role Phone JONATHAN Velarde, MIR Unavailable [facility] Unavailable Unavailable SUNIL Velarde, MOOK Unavailable Unavailab marcella MATHEWS D.O., JIM Unavailable Unavailable GRACE P.AYanci, AMI Unavailable Unavailable MALIA GARCIA [place], NAVEEN TOWNSEND Unavailable Unavailable MALIA Velarde, NAVEEN Unavailable Unavailable Sunil GARCIA, Mook Unavailable Unavailable CHRISTINE GARCIA, ERNESTO Hood Unavailable Unavailable Janmamta R.NYanci, Kay Unavailable Unavailable GRACE PONCE [place], AMI LANDIS Unavailable Unavailab marcella RICO MD, [...] Active Closed wedge compression fracture of [facility] thoracic vertebra, initial encounter (805.2, [...] HOURS NEEDED. * Quantity: 1 Refills: 4 AIM CARLIN * Start : 18-Jun-2018 Active 8.5 [...] for cough * Quantity: 30 Refills: 1 MAI CARLIN * Start : 30-Mar-2019 Active OneTouch Delica Plus [id number] USE DIRECTED EVERY DAY * Quantity: 100 [...] Details Morphine Derivatives (Allergy) Status: A ctive [place] TABS (Allergy) Status: Active oxycodone (Allergy) Status: [...] Influenza on: 31-May-2011 Fluzone INJ Lot #: [id number] on: 20-Apr-2013 Fluzone Quadrivalent 0.5 ML Intramuscula r Suspension Prefilled Syringe Lot #: [id number] on: 06-Mar-2015 Prevnar 13 Intramuscular Suspension Lot #: [id number] on: 19-Nov-2018 Influenza, seasonal, injectable on: 26-Mar-2019 [...] (finding) Vital Signs Date Test Result Details [id number] Systolic blood pressure 124 mm[Hg] Status: Comments : Location: LUE; Position: Sitting Diastolic blood pressure 70 mm[Hg] Status: Comment s: Location: LUE; Position: Sitting Body height 68 in Status: Weight 200 lb Status: Body mass index (BMI) [Ratio] 30.41 kg/m2 Status: Body surface area Derived from formula 2.04 m2 S tatus: Heart Rate 83 /min Status: Comments: Lo cation: L Brachial Artery; [id number] Systolic blood pressure 134 mm[Hg] Status: Comments [...] urce: RA Results Date Description Value Details [id number] [O] Hemoglobin A1c (in office) HEMOGLOBIN A1c 6.8% Plan of Care Name Dates Details Planned Observations Planned Goals not documented Planned Encounters Appointment; MOOK BARBER M .D. On: 10-Aug-2019 15:00 Instructions Name Dates Details Instructions not documented [...] Problem not documented On: 22-Jan-2018 9:30 Appointment; [facility], ECHO Encounter Diagnosis: Problem not documented On: [...]
--- OUTSIDE RECORDS SUMMARY | 2019-11-11 21:02 | XMS REPORT | Summary of Care ---
Author Author SUNIL Velarde, [facility]I [facility] Unknown Address Unknown Phone Unavailable Care Team Providers Care Fruit Harvester Name Role Phone JONATHAN Velarde, MIR Unavailable Unavailable SUNIL Velarde, MOOK Unavailable Unavailab marcella MATHEWS D.O., JIM Unavailable Unavailable GRACE P.AYanci, AMI Unavailable Unavailable MALIA GARCIA [place], NAVEEN TOWNSEND Unavailable Unavailable MALIA Velarde, NAVEEN Unavailable Unavailable Sunil GARCIA, Mook Unavailable Unavailable CHRISTINE GARCIA, ERNESTO Hood Unavailable Unavailable Janecka R.N., Kay Unavailable Unavailable GRACE PONCE [place], AMI LANDIS Unavailable Unavailab marcella RICO MD, [...] Status: Active Closed wedge compression fracture of [facility] thoracic vertebra, initial encounter (805.2, S22.060A) Status: [...] Aortic valve disease (424.1, I35.9) Status: Active Chest pain (786.50, R07.9) Status: Active Medications Name Dates Details Aspirin [...] DAILY * Quantity: 1 Refills: 0 JONATHAN Austin.DYanci, MIR Active 60 GM Tube Fluocinolone Acetonide [...] Start : 30-Mar-2019 Active OneTouch Delica Plus [id number] USE DIRECTED EVERY DAY * Quantity: 100 [...] Details Morphine Derivatives (Allergy) Status: A ctive [place] TABS (Allergy) Status: Active oxycodone (Allergy) Status: [...] Influenza on: 31-May-2011 Fluzone INJ Lot #: [id number] on: 20-Apr-2013 Fluzone Quadrivalent 0.5 ML Intramuscula r Suspension Prefilled Syringe Lot #: [id number] on: 06-Mar-2015 Prevnar 13 Intramuscular Suspension Lot #: [id number] on: 19-Nov-2018 Influenza, seasonal, injectable on: 26-Mar-2019 [...] (finding) Vital Signs Date Test Result Details :16 Systolic blood pressure 138 mm[Hg] Status: Comments : [place] [facility] [place]: [place]itting Diastolic blood pressure 71 mm[Hg] Status: Comment s: [place] [facility] [place] Position: Sitting Body height 68 in Status: Weight 196.125 lb Status: Body mass index (BMI) [Ratio] 29.82 kg/m2 Status: Body surface area Derived from formula 2.03 m2 S tatus: Heart Rate 73 /min Status: Comments: Lo cation: L Radial; Quality: Normal :22 Systolic blood pressure 124 mm[Hg] Status: Comments : [place] [facility] [place] Position: Sitting Diastolic blood pressure 70 mm[Hg] Status: Comment s: [place] [facility] [place] Position: Sitting Body height 68 in Status: Weight 200 lb Status: Body mass index (BMI) [Ratio] 30.41 kg/m2 Status: Body surface area Derived from formula 2.04 m2 S tatus: Heart Rate 83 /min Status: Comments: Lo cation: L Brachial Artery; :48 Systolic blood pressure 134 mm[Hg] Status: Comments : Location: [facility]; Position: Sitting Diastolic blood pressure 77 mm[Hg] Status: Comment s: Location: [facility]; Position: Sitting Body height 68 in Status: [...] not documented Interventions Provided Plan* 1. CAD: c/o chest tightness on exertion * - 08/10/19 nuclear stress test given [...] daily * 3. Tachyarrhythmia s/p ablation at [facility]: stable * 4. Lipid profile: checked 10/2015, [...] Problem not documented On: 20-Aug-2017 13:20 Appointment; IMR CASTILLO M.D. Encounter Diagnosis: Problem not documented [...] Problem not documented On: 22-Jan-2018 9:30 Appointment; [facility]-MS, ECHO Encounter Diagnosis: Problem not [...] Problem not documented On: 06-Aug-2019 10:20 [facility] Encounter Diagnosis: Problem not documented On: 10-Aug-2019 8:45 Appointment; MOOK BARBER M .D. Encounter Diagnosis: Problem not documented On: 10-Aug-2019 15:00
--- OUTSIDE RECORDS SUMMARY | 2019-11-11 21:02 | XMS REPORT | Summary of Care ---
Author Author Yvette ZAMBRANO, JAQUI Rausch Organization Unknown Address [facility] Phone Unavailable Care Team Providers Care Family Welfare Social Work Professor Name Role Phone JONATHAN Velarde, MIR Unavailable Unavailable SUNIL Velarde, MOOK Unavailable Unavailab marcella MATHEWS D.O., JIM Unavailable Unavailable GRACE P.A., AMI Unavailable Unavailable MALIA GARCIA [place], NAVEEN TOWNSEND Unavailable Unavailable MALIA Velarde, NAVEEN Unavailable Unavailable Sunil GARCIA, Mook Unavailable Unavailable CHRISTINE GARCIA, ERNESTO Hood Unavailable Unavailable Janmamta R.NYanci, Kay Unavailable Unavailable GRACE PONCE [place], AMI LANDIS Unavailable Unavailab marcella RICO MD, FRANCICSO Miller Unavailable Unavailable Unavailable Unavailable Functional Status [...] Start : 30-Mar-2019 Active OneTouch Delica Plus [id number] USE DIRECTED EVERY DAY * Quantity: 100 [...] Details Morphine Derivatives (Allergy) Status: A ctive [place] TABS (Allergy) Status: Active oxycodone (Allergy) Status: [...] Influenza on: 31-May-2011 Fluzone INJ Lot #: [id number] on: 20-Apr-2013 Fluzone Quadrivalent 0.5 ML Intramuscula r Suspension Prefilled Syringe Lot #: [id number] on: 06-Mar-2015 Prevnar 13 Intramuscular Suspension Lot #: [id number] on: 19-Nov-2018 Influenza, seasonal, injectable on: 26-Mar-2019 [...]
--- OUTSIDE RECORDS SUMMARY | 2019-11-11 21:02 | XMS REPORT | Summary of Care ---
Author Author JAQUI CARLIN Organization Unknown Address Unknown Phone Unavailable Care Team Providers Care Instructional Design Technologist Name Role Phone JONATHAN Velarde, MIR Unavailable Unavailable SUNIL Velarde, MOOK Unavailable Unavailab marcella MATHEWS D.O., JIM Unavailable Unavailable GRACE Boothe, AMI Unavailable Unavailable MALIA GARCIA [place], NAVEEN TOWNSEND Unavailable Unavailable JONATHAN GARCIA [place], MIR Cedillo Unavailable Unavailable MALIA Velarde, NAVEEN Unavailable Unavailable Sunil GARCIA, Mook Unavailable Unavailable CHRISTINE GARCIA, ERNESTO Hood Unavailable Unavailable Janmamta R.N., Mariyancy Unavailable Unavailable GRACE SERRA [place], AMI LANDIS Unavailable Unavailab marcella RICO MD, [...] acid dehydrogenase (LDH) (790.4, R74.0) Status: Active Weight loss, unintentional (783.21, R63. 4) Status: Active Unstable angina (411.1, I20.0) Status: Active Chronic pain of right knee (719.46, M25. 561) Status: Active Negative depression screening (V79.0, Z1 3.31) Status: Active Inguinal hernia (550.90, K40.90) Status: Active Pleural effusion on right (511.9, J90) Status: Active Dementia (294.20, F03.90) Status: Active S/P placement of cardiac pacemaker (V45. 01, Z95.0) Status: Active Duration Of Encounter - Review Of Prior Records (___ min) Status: Active Aortic stenosis (424.1, I35.0) Status: Active Status post aortic valve replacement wit h bioprosthetic valve (V42.2, Z95.3) Status: Active Status post aortic valve replacement wit h bioprosthetic valve (V42.2, Z95.3) Status: Active Rectal bleeding (569.3, K62.5) Status: Active Ptosis of left eyelid (374.30, H02.402) Status: Active Bilateral impacted cerumen (380.4, H61.2 3) Status: Active Decreased hearing of both ears (389.9, H 91.93) Status: Active Sensorineural hearing loss, bilateral (3 89.18, H90.3) Status: Active Never smoker Status: Active Closed wedge compression fracture of [facility] thoracic vertebra, initial encounter (805.2, S22.060A) Status: Active 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, 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 Thrombocytopenia (287.5, D69.6) Status: Active Need for zoster vaccination (V04.89, Z23 ) Status: Active Psoriasis (696.1, L40.9) Status: Active Vitamin B12 deficiency (266.2, E53.8) Status: Active Erectile dysfunction (607.84, N52.9) Status: Active Claudication, intermittent (443.9, I73.9 ) Status: Active Allergic rhinitis (477.9, J30.9) [...] hyperlipidem ia type (272.4, E78.5) Status: Active Severe aortic stenosis (424.1, I35.0) Status: Active Iron deficiency anemia (280.9, D50.9) Status: Active Memory loss or impairment (780.93, R41.3 ) Status: Active History of Infected pacemaker, subsequen t encounter (V58.89, T82.7XXD) Status: Resolved Asthma (493.90, J45.909) Status: Active Type 2 diabetes mellitus (250.00, E11.9) Status: Active Medications Name Dates Details Aspirin [...] visit * Quantity: 30 Refills: 0 GRACE AMI Boothe * Start : 13-Feb-2018 [...] Start : 30-Mar-2019 Active OneTouch Delica Plus Vvheqg73A USE DIRECTED EVERY DAY * Quantity: 100 [...] Details Morphine Derivatives (Allergy) Status: A ctive [place] TABS (Allergy) Status: Active oxycodone (Allergy) Status: [...] hypertension (V12.59, Z86.79) Status: Resolved History of Infected pacemaker, subsequen t encounter (V58.89, T82.7XXD) Status: Resolved History of paroxysmal supraventricular t [...] Influenza on: 31-May-2011 Fluzone INJ Lot #: [id number] on: 20-Apr-2013 Fluzone Quadrivalent 0.5 ML Intramuscula r Suspension Prefilled Syringe Lot #: [id number] on: 06-Mar-2015 Pneumovax 23 25 MCG/0.5ML Injection Inje ctable on: 19-Nov-2018 Prevnar 13 Intramuscular Suspension Lot #: [id number] on: 19-Nov-2018 Influenza, seasonal, injectable on: 26-Mar-2019 [...] PANEL WITH REFLEX TO DIRECT LDL On: Intent [QL] CMP W/EGFR On: 17-Oct-2019 Intent [QL] CBC (INCLUDES DIFF/PLT) On: 17-Oct-2019 Intent [QL] FERRITIN On: 17-Oct-2019 Intent [QL] IRON AND TOTAL IRON BINDING CAPACITY On: Intent Planned Goals not documented Planned Encounters [...] not documented On: 12-Jan-2018 9:00 Appointment; ROSANNE ROELLANA M.D. Encounter Diagnosis: Problem not documented On: 16-Jan-2018 9:30 Appointment; ERNESTO KING M.D. Encounter Diagnosis: Problem not documented On: 22-Jan-2018 9:30 Appointment; [facility], ECHO Encounter Diagnosis: Problem not documented On: [...] Problem not documented On: 19-May-2018 11:30 Appointment; [facility]-MS, STRESS Encounter Diagnosis: Problem not documented On: [...] Problem not documented On: 11-Jan-2019 11:30 [facility]; [facility] Encounter Diagnosis: Problem not documented On: 05-Feb-2019 10:00 Appointment; MOOK BARBER M .D. Encounter Diagnosis: Problem not documented On: 05-Feb-2019 11:20 Appointment; AMI EDWARDS P.A. Encounter Diagnosis: Problem not documented On: 30-Mar-2019 8:15 Appointment; GLADIS ORTEGA M.D. Encounter Diagnosis: Problem not documented On: 19-Jul-2019 15:45 Appointment; MOOK BARBER M .D. Encounter Diagnosis: Problem not documented On: 06-Aug-2019 10:20 Appointment; [facility], NUCLEAR Encounter Diagnosis: Problem not documented On: 10-Aug-2019 8:45 Appointment; MOOK BARBER M .D. Encounter Diagnosis: Problem not documented On: 10-Aug-2019 15:00 Appointment; MOOK BARBER M .D. Encounter Diagnosis: Problem not documented On: 07-Sep-2019 9:40 Appointment; AMI EDWARDS P.A. Encounter Diagnosis: Problem not documented On: 14-Oct-2019 10:00
--- OUTSIDE RECORDS SUMMARY | 2019-11-11 21:03 | XMS REPORT | Summary of Care ---
Author JAQUI Toro M.A. Organization Unknown Address [facility] Phone Unavailable Care Team Providers Care Universal Winding Machine Operator Name Role Phone Mitali Medina M.A. Unavailable Unavailable JONATHAN Velarde, MIR Unavailable Unavailable SUNIL Velarde, MOOK Unavailable Unavailab marcella MATHEWS D.O., JIM Unavailable Unavailable GRACEFRED Boothe, AMI Unavailable Unavailable MALIA GARCIA KS, NAVEEN TOWNSEND Unavailable Unavailable JONATHAN GARCIA KS, MIR Cedillo Unavailable Unavailable MALIA Velarde, NAVEEN Unavailable Unavailable Sunil GARCIA, Mook Unavailable Unavailable CHRISTINE GARCIA, ERNESTO Hood Unavailable Unavailable Janmamta R.NYanci, Kay Unavailable Unavailable GRACE PONCE, AMI LANDIS Unavailable Unavailable TRISHA GARCIA, FRANCISCO Miller Unavailable Unavailable Unavailable Unavailable Functional [...] loss, unintentional (783.21, R63. 4) Status: Active Chronic pain of right knee (719.46, M25. 561) Status: Active Inguinal hernia (550.90, K40.90) Status: Active Dementia (294.20, F03.90) Status: Active [...] loss, bilateral (3 89.18, H90.3) Status: Active Closed wedge compression fracture of [...] Active Chest pain (786.50, R07.9) Status: Active Aortic valve disease (424.1, I35.9) Status: Active Severe aortic stenosis (424.1, I35.0) Status: Active Iron deficiency anemia (280.9, D50.9) Status: Active Memory loss or impairment (780.93, R41.3 ) Status: Active Asthma (493.90, J45.909) Status: Active Type 2 diabetes mellitus (250.00, E11.9) Status: Active Never smoker Status: Active Diabetic retinopathy screening (V80.2, Z 13.5) Status: Active Myalgia (729.1, M79.10) Status: Active CAD (coronary artery disease) (414.00, I 25.10) Status: Active Essential (primary) hypertension (401.9, I10) Status: Active Hyperlipidemia, unspecified hyperlipidem ia type (272.4, E78.5) Status: Active History of Infected pacemaker, subsequen t encounter (V58.89, T82.7XXD) Status: Resolved Negative depression screening (V79.0, Z1 3.31) Status: Active Abrasion of toe of right foot, initial e ncounter (917.0, S90.414A) Status: Active Medications Name Dates Details Aspirin [...] BY MOUTH EVERY 12 HOURS WITH FOOD * Quantity: 360 Refills: 1 AMI CARLIN * Start : 16-Mar-2015 Active KassidyTouch Verio In Vitro Strip CHECK BLOOD SUGAR EVERY DAY * Quantity: 100 Refills: 0 AMI CARLIN * Start : 11-Jun-2017 Active KassidyTouch Delica Lancets Fine MISC USE DIRECTED EVERY [...] AMI CARLIN * Start : 19-Nov-2018 Active Vitamin B-12 1000 MCG Sublingual Tablet Sublingual Dissolve 1 tablet sublingually once daily * Quantity: 90 Refills: 1 AMI CARLIN * Start : 13-Jan-2019 Active OneTouch Delica Plus Pltdif79S USE DIRECTED EVERY DAY * Quantity: 100 Refills: 0 AMI CARLIN * Start : 13-Apr-2019 Active Losartan Potassium 100 MG Oral Tablet TAKE 1 TABLET BY MOUTH DAILY * Quantity: 90 Refills: 0 MOOK BARBER M.D. * Start : 30-Jun-2019 Active hydroCHLOROthiazide 12.5 MG Oral Tablet TAKE 1 TABLET BY MOUTH EVERY DAY IN THE MORNING * Quantity: 90 Refills: 0 MOOK BARBER M.D. * Start : 30-Jun-2019 Active Otezla 10 & 20 & 30 MG Oral Tablet Therapy Pack * Refills: 0 * Start : 19-Jul-2019 Active 55 Tablet Pack Ferrous Sulfate 325 (65 Fe) MG Oral Tablet TAKE 1 TABLET EVERY OTHER DAY * Quantity: 45 Refills: 1 AMI CARLIN * Start : 25-Oct-2019 Active Allergies and Adverse Reactions Name Dates Details Morphine Derivatives (Allergy) Status: A ctive [place] TABS (Allergy) Status: Active oxycodone (Allergy) Status: [...] (V12. 59, Z86.79) Status: Resolved History of crescendo angina (V12.59, Z86 .79) Status: Resolved History of diabetes mellitus (V12.29, Z8 6.39) Status: Resolved History of Exertional angina (413.9, I20 .8) Status: Resolved History of heart valve abnormality (V12. 59, Z86.79) Status: Resolved History of hypertension (V12.59, Z86.79) Status: Resolved History of Infected pacemaker, subsequen t encounter (V58.89, T82.7XXD) Status: Resolved History of paroxysmal supraventricular t achycardia (V12.59, Z86.79) Status: Resolved History of Pleural effusion on right (51 1.9, J90) Status: Resolved History of rectal bleeding (V12.79, Z87. 19) Status: Resolved History of tinea corporis (V12.09, Z86.1 9) Status: Resolved Procedures Procedure Dates Details [QL] CREATINE KINASE, TOTAL Date: 14-Oct-2019 History of Tonsillectomy With Adenoidectomy Completed History of Cholecystectomy Completed History of Permanent pacemaker insertion Completed History of Aortic valve replacement Comp leted Immunization Name Dates Details Tdap on: Aug-2010 Influenza on: 31-May-2011 Fluzone INJ Lot #: [id number] on: 20-Apr-2013 Fluzone Quadrivalent 0.5 ML Intramuscula r Suspension Prefilled Syringe Lot #: [id number] on: 06-Mar-2015 Pneumovax 23 25 MCG/0.5ML Injection Inje ctable on: 19-Nov-2018 Prevnar 13 Intramuscular Suspension Lot #: [id number] on: 19-Nov-2018 Influenza, seasonal, injectable on: 26-Mar-2019 [...] (finding) Vital Signs Date Test Result Details :17 Physical Findings 0 Status: Comments: PH Q-9 Adult Depression Screening Physical Findings 0 Status: Comments: Al cohol Screen - How many times in the past yr have you had 5 (for M) or 4 (for F) or 4 (for all > 65yrs) or more drinks in a day? :11 Systolic blood pressure 145 mm[Hg] Status: Diastolic blood pressure 80 mm[Hg] Status: Heart Rate 69 /min Status: :09 Systolic blood pressure 148 mm[Hg] Status: Comments : Location: LUE; Position: Sitting Diastolic blood pressure 67 mm[Hg] Status: Comment s: Location: LUE; Position: Sitting Heart Rate 74 /min Status: Body height 68 in Status: Weight 199 lb Status: Body mass index (BMI) [Ratio] 30.26 kg/m2 Status: Body surface area Derived from formula 2.04 m2 S tatus: Body temperature 97.7 f Status: Comments: Me thod: Temporal Respiratory rate 16 /min Status: Results Date Description Value Details :07 [Q] LIPID PANEL WITH REFLEX TO DIRECT LD L CHOLESTEROL, TOTAL 97 mg/dl (Normal) Range: <20 0 HDL CHOLESTEROL 39 mg/dl (Below low threshold) Range: > OR = 40 TRIGLYCERIDES 204 mg/dl (Above high threshold ) Range: <150 Comments: If a non-fasting specimen was collected, considerrepeat triglyceride testing on a fasting specimenif clinically indicated. Samantha et al. J. of Clin. Lipidol. 2015;9:129-169. LDL-CHOLESTEROL 31 {MG/DL__CAL} (Normal) Commen ts: Reference range: <100 Desirable range <100 mg/dL for primary prevention; <70 mg/dL for patients with CHD or diabetic patients with > or = 2 CHD risk factors. LDL-C is now calculated using the Alirio calculation, which is a validated novel method providing better accuracy than the Friedewald equation in the estimation of LDL- C. Paulino RODARTE et al. JACQUI. 2013;310(19): 6866-8907 (http ://education.[employer].Groupoff/faq/VEF986) CHOL/HDLC RATIO 2.5 {CALC} (Normal) Range: <5.0 NON HDL CHOLESTEROL 58 {MG/DL__CAL} (Normal) Ra nge: <130 Comments: For patients with diabetes plus 1 major ASCVD risk factor, treating to a non-HDL-C goal of <100 mg/dL (LDL-C of <70 mg/dL) is considered a therapeutic option. :07 [QL] MICROALBUMIN, RANDOM URINE (W/CREAT ININE) Comments: Reference RangeNot established CREATININE, RANDOM URINE 256 mg/dl (Normal) Ran ge: 20-320 MICROALBUMIN 2.0 mg/dl (Normal) Comments: Re ference RangeNot established MICROALBUMIN/CREATININE RATIO, RANDOM URINE 8 { MCG/MG_CRE} (Normal) Range: <30 Comments: The ADA defines abnormalities in albuminexcretion as follows: Category Result (mcg/mg creatinine) Normal <30Microalbuminuria 30-299 Clinical albuminuria > OR = 300 The ADA recommends that at least two of threespecimens collected within a 3-6 month period beabnormal before considering a patient to bewithin a diagnostic category. :07 [QL] IRON AND TOTAL IRON BINDING CAPACIT Y IRON, TOTAL 46 {mcg/dl} (Below low threshol d) Range: 50-180 IRON BINDING CAPACITY 379 {mcg/dL__ca} (Normal) Range: 250-425 % SATURATION 12 {%__CALC} (Below low thresho ld) Range: 20-48 :07 [QL] CMP W/EGFR Comments: REPORT COM MENT:FASTING:YES GLUCOSE 127 mg/dl (Above high threshold ) Range: 65-99 Comments: Fasting reference interval For someone without known diabetes, a glucosevalue >125 mg/dL indicates that they may havediabetes and this should be confirmed with afollow-up test. UREA NITROGEN (BUN) 16 mg/dl (Normal) Range: 7- 25 CREATININE 0.88 mg/dl (Normal) Range: 0.70 -1.18 Comments: For patients >49 years of age, the reference limitfor Creatinine is approximately 13% higher for peopleidentified as -[place]. eGFR NON- 85 {ML/MIN/1.7} (Norm al) Range: > OR = 60 eGFR 98 {ML/MIN/1.7} (Normal) Range: > OR = 60 BUN/CREATININE RATIO NOT APPLICABLE {CALC} Rang e: 6-22 SODIUM 142 mmol/L (Normal) Range: 135- 146 POTASSIUM 4.3 mmol/L (Normal) Range: 3.5- 5.3 CHLORIDE 105 mmol/L (Normal) Range: 98-1 10 CARBON DIOXIDE 27 mmol/L (Normal) Range: 20-32 CALCIUM 9.8 mg/dl (Normal) Range: 8.6-1 0.3 PROTEIN, TOTAL 7.4 g/dl (Normal) Range: 6.1-8. 1 ALBUMIN 4.3 g/dl (Normal) Range: 3.6-5. 1 GLOBULIN 3.1 {G/DL__CALC} (Normal) Range : 1.9-3.7 ALBUMIN/GLOBULIN RATIO 1.4 {CALC} (Normal) Rang e: 1.0-2.5 BILIRUBIN, TOTAL 1.1 mg/dl (Normal) Range: 0.2- 1.2 ALKALINE PHSPHATASE 58 u/l (Normal) Range: 35-1 44 AST 22 u/l (Normal) Range: 10-35 ALT 31 u/l (Normal) Range: 9-46 57-Otj-26141:07 [QL] CBC (INCLUDES DIFF/PLT) WHITE BLOOD CELL COUNT 7.6 {Thousand/u} (Normal ) Range: 3.8-10.8 RED BLOOD CELL COUNT 4.55 {Million/uL} (Normal) Range: 4.20-5.80 HEMAGLOBIN 12.9 g/dl (Below low threshold) Range: 13.2-17.1 HEMATOCRIT 39.9 % (Normal) Range: 38.5-50. 0 MCV 87.7 fL (Normal) Range: 80.0-10 0.0 MCH 28.4 pg (Normal) Range: 27.0-33 .0 MCHC 32.3 g/dl (Normal) Range: 32.0- 36.0 RDW 13.7 % (Normal) Range: 11.0-15. 0 PLATELET COUNT 166 {Thousand/u} (Normal) Range : 140-400 MPV 11.8 fL (Normal) Range: 7.5-12. 5 ABSOLUTE NEUTROPHILS 5480 {cells/uL} (Normal) R [place]: 0021-1187 ABSOLUTE LYMPHOCYTES 1353 {cells/uL} (Normal) R [place]: 850-3900 ABSOLUTE MONOCYTES 608 {cells/uL} (Normal) Rang e: 200-950 ABSOLUTE EOSINOPHILS 129 {cells/uL} (Normal) Ra nge: 15-500 ABSOLUTE BASOPHILS 30 {cells/uL} (Normal) Range : 0-200 NEUTROPHILS 72.1 % (Normal) LYMPHOCYTES 17.8 % (Normal) MONOCYTES 8.0 % (Normal) EOSINOPHILS 1.7 % (Normal) BASOPHILS 0.4 % (Normal) :07 [QL] FERRITIN Comments: REPORT COM MENT:FASTING:YES FERRITIN 9 ng/ml (Below low threshold) R [place]: 24-380 :07 [QL] HEMOGLOBIN A1c Comments: REPORT CO MMENT:FASTING:YES HEMOGLOBIN A1c 7.1 {%_of_total} (Above high th reshold) Range: <5.7 Comments: For someone without known diabetes, a hemoglobin W5neozsf of 6.5% or greater indicates that they [...] MOOK BARBER M .D. On: 10-Mar-2020 9:00 Appointment; AMI EDWARDS P.A. On: 17-Apr-2020 10:00 Instructions Name Dates Details Instructions not documented [...] Problem not documented On: 22-Jan-2018 9:30 Appointment; [facility], ECHO Encounter Diagnosis: Problem not documented [...] Problem not documented On: 19-May-2018 11:30 Appointment; [facility], STRESS Encounter Diagnosis: Problem not documented On: 12-Jun-2018 9:00 Appointment; CHARMOOK MENJIVAR M .D. Encounter Diagnosis: Problem not documented [...]
--- OUTSIDE RECORDS SUMMARY | 2019-11-11 21:03 | XMS REPORT | Summary of Care ---
Author Author JAQUI CARLIN Organization Unknown Address Unknown Phone Unavailable Care Team Providers Care Multiple Effect Evaporator Operator Name Role Phone JONATHAN Velarde, MIR Unavailable Unavailable SUNIL Velarde, MOOK Unavailable Unavailab marcella MATHEWS D.O., JIM Unavailable Unavailable GRACE Boothe, AMI Unavailable Unavailable MALIA GARCIA SD, NAVEEN TOWNSEND Unavailable Unavailable JONATHAN GARCIA SD, MIR Cedillo Unavailable Unavailable MALAI Velarde, NAVEEN Unavailable Unavailable Sunil GARCIA, Mook Unavailable Unavailable CHRISTINE GARCIA, ERNESTO Hood Unavailable Unavailable Janmamta R.N., Mariyancy Unavailable Unavailable GRACE SERRA SD, AMI LANDIS Unavailable Unavailab marcella RICO MD, [...] wedge compression fracture of g [facility] thoracic vertebra, initial encounter (805.2, S22.060A) [...] CARLIN * Start : 11-Jun-2017 Active KassidyTouch [place] Lancets Fine MISC USE DIRECTED EVERY [...] daily * Quantity: 90 Refills: 1 GRACE AMI Boothe * Start : 13-Jan-2019 Active OneTouch Delica Plus [id number] USE DIRECTED EVERY DAY * Quantity: 100 [...] Details Morphine Derivatives (Allergy) Status: A ctive [place] TABS (Allergy) Status: Active oxycodone (Allergy) Status: [...] AND TOTAL IRON BINDING CAPACITY Date: 14-Oct-2019 [QL] CREATINE KINASE, TOTAL Date: 14-Oct-2019 History of Tonsillectomy With Adenoidectomy Completed History of Cholecystectomy Completed History of Permanent pacemaker insertion Completed History of Aortic valve replacement Comp leted Immunization Name Dates Details Tdap on: Aug-2010 Influenza on: 31-May-2011 Fluzone INJ Lot #: [id number] on: 20-Apr-2013 Fluzone Quadrivalent 0.5 ML Intramuscula r Suspension Prefilled Syringe Lot #: [id number] on: 06-Mar-2015 Pneumovax 23 25 MCG/0.5ML Injection Inje ctable on: 19-Nov-2018 Prevnar 13 Intramuscular Suspension Lot #: [id number] on: 19-Nov-2018 Influenza, seasonal, injectable on: 26-Mar-2019 [...] (finding) Vital Signs Date Test Result Details [id number] Systolic blood pressure 145 mm[Hg] Status: Diastolic blood pressure 80 mm[Hg] Status: Heart Rate 69 /min Status: 11-Pyh-304272:09 Systolic blood pressure 148 mm[Hg] Status: Comments [...] /min Status: Results Date Description Value Details Results not [...] Intent Planned Goals not documented Planned Encounters Ophthalmology Referral Appointment; MOOK BARBER M .D. On: 10-Mar-2020 9:00 Interventions Provided Medication Changes* Atorvastatin Calcium 80 MG Oral Tablet - Renew * metFORMIN HCl - 500 MG Oral Tablet - Renew Labs/Procedures/Imaging* [QL] CREATINE KINASE, TOTAL; To Be Done: 14 Oct 2019 * Tobacco Use Screening; Done: 14 Oct 2019 Plan* HTN - increase exercise; if still >140/90, contact cardiology * DM - recheck A1C; refer for retinopathy screening * Anemia - not taking iron supplement; recheck CBC, iron studies * Myalgia - check CK, electrolytes * F/u 6 monthjs Instructions Name Dates Details Instructions not documented [...] Problem not documented On: 22-Jan-2018 9:30 Appointment; [facility], ECHO Encounter Diagnosis: Problem not documented On: 24-Feb-2018 11:00 Appointment; MOOK BARBER M .D. Encounter Diagnosis: Problem not documented On: 24-Feb-2018 12:20 Appointment; AMI EDWARDS P.A. Encounter Diagnosis: Problem not documented On: 19-Mar-2018 8:15 Appointment; AMI EDWARDS P.A. Encounter Diagnosis: Problem not documented On: 19-Mar-2018 8:15 Appointment; AMI EDWARDS P.A. Encounter Diagnosis: Problem not documented On: 20-Mar-2018 8:15 Appointment; AIM EDWARDS P.A. Encounter Diagnosis: Problem [...]
--- OUTSIDE RECORDS SUMMARY | 2019-11-11 21:03 | XMS REPORT | Summary of Care ---
Author Author JAQUI Virk Organization Unknown Address Unknown Phone Unavailable Care Team Providers Care Microfilm Machine Operator Name Role Phone JONATHAN Velarde, MIR Unavailable Unavailable SUNIL Velarde, MOOK Unavailable Unavailab marcella MATHEWS D.O., JIM Unavailable Unavailable Vadim Virk Unavailable Unavailable GRACE P.A., AMI Unavailable Unavailable MALIA GARCIA AL, NAVEEN TOWNSEND Unavailable Unavailable JONATHAN GARCIA AL, MIR Cedillo Unavailable Unavailable MALIA Velarde, NAVEEN Unavailable Unavailable Sunil GARCIA, Mook Unavailable Unavailable CHRISTINE GARCIA, ERNESTO Hood Unavailable Unavailable Janecka R.N., Mariyancy Unavailable Unavailable GRACE PONCE AL, AMI LANDIS Unavailable Unavailab marcella RICO MD, FRACNISCO Miller Unavailable Unavailable Unavailable Unavailable Functional Status [...] HOURS NEEDED. * Quantity: 1 Refills: 4 GRACEAMI WARE * Start : 18-Jun-2018 Active 8.5 GM Inhaler Shingrix 50 MCG Intramuscular Suspension Reconstituted Administer at pharmacy as directed * Quantity: 1 Refills: 0 GRACEAMI WARE * Start : 19-Nov-2018 Active Vitamin B-12 1000 MCG Sublingual Tablet Sublingual Dissolve 1 tablet sublingually once daily * Quantity: 90 Refills: 1 GRACE AMI Boothe * Start : 13-Jan-2019 Active OneTouch Delica Plus [id number] USE DIRECTED EVERY DAY * Quantity: 100 Refills: 0 GRACE AMI Boothe * Start : 13-Apr-2019 Active Losartan Potassium [...] Details Morphine Derivatives (Allergy) Status: A ctive [place] TABS (Allergy) Status: Active oxycodone (Allergy) Status: [...] Influenza on: 31-May-2011 Fluzone INJ Lot #: [id number] on: 20-Apr-2013 Fluzone Quadrivalent 0.5 ML Intramuscula r Suspension Prefilled Syringe Lot #: [id number] on: 06-Mar-2015 Pneumovax 23 25 MCG/0.5ML Injection Inje ctable on: 19-Nov-2018 Prevnar 13 Intramuscular Suspension Lot #: [id number] on: 19-Nov-2018 Influenza, seasonal, injectable on: 26-Mar-2019 [...] (finding) Vital Signs Date Test Result Details [id number] Physical Findings 0 Status: Comments: Q-9 Adult Depression Screening Physical Findings 0 Status: Comments: Al cohol Screen - How many times in the past yr have you had 5 (for M) or 4 (for F) or 4 (for all > 65yrs) or more drinks in a day? [id number] Systolic blood pressure 145 mm[Hg] Status: Diastolic blood pressure 80 mm[Hg] Status: Heart Rate 69 /min Status: 37-Mro-821685:09 Systolic blood pressure 148 mm[Hg] Status: Comments [...] Problem not documented On: 22-Jan-2018 9:30 Appointment; [facility], ECHO Encounter Diagnosis: Problem not [...] Problem not documented On: 12-Jun-2018 9:00 Appointment; MOKO BARBER M .D. Encounter [...] Problem not documented On: 06-Aug-2019 10:20 Appointment; [facility] NUCLEAR Encounter Diagnosis: Problem not documented On: 10-Aug-2019 8:45 Appointment; MOOK BARBER M .D. Encounter Diagnosis: Problem not documented On: 10-Aug-2019 15:00 Appointment; MOOK BARBER M .D. Encounter Diagnosis: Problem not documented On: 07-Sep-2019 9:40 Appointment; AMI EDWARDS P.A. Encounter Diagnosis: Problem not documented On: 14-Oct-2019 10:00
--- OUTSIDE RECORDS SUMMARY | 2019-11-11 21:03 | XMS REPORT | Summary of Care ---
Author Author JAQUI Virk Organization Unknown Address Unknown Phone Unavailable Care Team Providers Care Vp Global Marketing [employer] Name Role Phone JONATHAN Velarde, MIR Unavailable Unavailable SUNIL Vealrde, MOOK Unavailable Unavailab marcella MATHEWS D.O., JIM Unavailable Unavailable Vadim Virk Unavailable Unavailable GRACE P.A., AMI Unavailable Unavailable MALIA GARCIA MD, NAVEEN TOWNSEND Unavailable Unavailable JONATHAN GARCIA MD, MIR Cedillo Unavailable Unavailable MALIA Velarde, NAVEEN Unavailable Unavailable Sunil GARCIA, Mook Unavailable Unavailable CHRISTINE GARCIA, ERNESTO Hood Unavailable Unavailable Janecka R.N., Mariyancy Unavailable Unavailable GRACE PONEC MD, AMI LANDIS Unavailable Unavailab marcella RICO MD, [...] DAILY * Quantity: 90 Refills: 3 MOOK BRABER M.D. * Start : 27-Apr-2013 Active Accu-Chek [...] Start : 13-Jan-2019 Active OneTouch Delica Plus [id number] USE DIRECTED EVERY DAY * Quantity: 100 [...] Details Morphine Derivatives (Allergy) Status: A ctive [place] TABS (Allergy) Status: Active oxycodone (Allergy) Status: [...] Influenza on: 31-May-2011 Fluzone INJ Lot #: [id number] on: 20-Apr-2013 Fluzone Quadrivalent 0.5 ML Intramuscula r Suspension Prefilled Syringe Lot #: [id number] on: 06-Mar-2015 Pneumovax 23 25 MCG/0.5ML Injection Inje ctable on: 19-Nov-2018 Prevnar 13 Intramuscular Suspension Lot #: [id number] on: 19-Nov-2018 Influenza, seasonal, injectable on: 26-Mar-2019 [...] (finding) Vital Signs Date Test Result Details [id number] Physical Findings 0 Status: Comments: Q-9 Adult Depression Screening Physical Findings 0 Status: Comments: Al cohol Screen - How many times in the past yr have you had 5 (for M) or 4 (for F) or 4 (for all > 65yrs) or more drinks in a day? [id number] Systolic blood pressure 145 mm[Hg] Status: Diastolic blood pressure 80 mm[Hg] Status: Heart Rate 69 /min Status: 31-Rhd-115323:09 Systolic blood pressure 148 mm[Hg] Status: Comments [...] Observations Planned Goals not documented Planned Encounters Ophthalmology [...]
--- OUTSIDE RECORDS SUMMARY | 2019-11-11 21:03 | XMS REPORT | Summary of Care ---
Author Author JAQUI Soto R.N. Organization Unknown Address Unknown Phone Unavailable Care Team Providers Care Cylinder Handler Name Role Phone JONATHAN Velarde, MIR Unavailable Unavailable SUNIL Velarde, MOOK Unavailable Unavailab marcella MATHEWS D.O., JIM Unavailable Unavailable GRACE PDayan, AMI Unavailable Unavailable Charles Lau, Becca Unavailable Unavailable MALIA GARCIA AR, NAVEEN TOWNSEND Unavailable Unavailable JONATHAN GARCIA AR, MIR Cedillo Unavailable Unavailable MALIA Velarde, NAVEEN Unavailable Unavailable Sunil GARCIA, Mook Unavailable Unavailable CHRISTINE GARCIA, ERNESTO Hood Unavailable Unavailable Elizabeth Lau, Kay Unavailable Unavailable GRACE PA, AMI LANDIS Unavailable Unavailable TRISHA GARCIA, FRANCISCO [...] Start : 13-Jan-2019 Active OneTouch Delica Plus [id number] USE DIRECTED EVERY DAY * Quantity: 100 [...] Details Morphine Derivatives (Allergy) Status: A ctive [place] TABS (Allergy) Status: Active oxycodone (Allergy) Status: [...] Influenza on: 31-May-2011 Fluzone INJ Lot #: [id number] on: 20-Apr-2013 Fluzone Quadrivalent 0.5 ML Intramuscula r Suspension Prefilled Syringe Lot #: [id number] on: 06-Mar-2015 Pneumovax 23 25 MCG/0.5ML Injection Inje ctable on: 19-Nov-2018 Prevnar 13 Intramuscular Suspension Lot #: [id number] on: 19-Nov-2018 Influenza, seasonal, injectable on: 26-Mar-2019 [...] (finding) Vital Signs Date Test Result Details [id number] Physical Findings 0 Status: Comments: PH Q-9 Adult Depression Screening Physical Findings 0 Status: Comments: Al cohol Screen - How many times in the past yr have you had 5 (for M) or 4 (for F) or 4 (for all > 65yrs) or more drinks in a day? [id number] Systolic blood pressure 145 mm[Hg] Status: Diastolic blood pressure 80 mm[Hg] Status: Heart Rate 69 /min Status: 89-[id number]:09 Systolic blood pressure 148 mm[Hg] Status: Comments [...] Appointment; AMI EDWARDS P.A. On: 17-Apr-2020 10:00 Interventions Provided Discussion/Summary* Guideline Used: * [place] * Patient concerned about his blood pressure. Per patient he was anxious over it last night and kept waking up to check his blood pressure every few minutes. Education given as to how to accurately monitor his blood pressure at home. Patient verbalized understanding and will try it and call back if he finds his blood pressure to be elevated or has any symptoms related to hypertension. No further action required. Instructions Name Dates Details Instructions not documented [...] Problem not documented On: 22-Jan-2018 9:30 [facility] Diagnosis: Problem not documented On: 24-Feb-2018 [...]
--- OUTSIDE RECORDS SUMMARY | 2019-11-11 21:03 | XMS REPORT | Summary of Care ---
Author JAQUI Toro M.A. [facility] Unknown Address [facility] Phone Unavailable Care Team Providers Care Special Officer Name Role Phone JONATHAN Velarde, MIR Unavailable Unavailable SUNIL Velarde, MOOK Unavailable Unavailab marcella MATHWES D.O., JIM Unavailable Unavailable GRACE P.AYanci, AMI Unavailable Unavailable MALIA GARCIA MO, NAVEEN TOWNSEND Unavailable Unavailable JONATHAN GARCIA MO, MIR Cedillo Unavailable Unavailable MALIA Velarde, NAVEEN Unavailable Unavailable Sunil GARCIA, Mook Unavailable Unavailable CHRISTINE GARCIA, ERNESTO Hood Unavailable Unavailable Janecka R.N., Kay Unavailable Unavailable GRACE PONCE MO, AMI LANDIS Unavailable Unavailab marcella RICO MD, [...] Active Closed wedge compression fracture of eig [facility] thoracic vertebra, initial encounter (805.2, S22.060A) Status: [...] CARLIN * Start : 16-Mar-2015 Active KassidyTouch Verchristina In Vitro Strip CHECK BLOOD SUGAR [...] DAILY * Quantity: 90 Refills: 3 MOOK ABRBER M.D. * Start : 21-Feb-2018 Active Fluocinonide 0.05 % External Ointment APPLY SPARINGLY TO scalp ONCE DAILY * Quantity: 1 Refills: 0 JONATHAN M.Yosef, MIR Active 60 GM Tube Fluocinolone Acetonide [...] GRACEAMI WARE * Start : 13-Jan-2019 Active OneTouch Delica Plus [id number] USE DIRECTED EVERY DAY * Quantity: 100 [...] Details Morphine Derivatives (Allergy) Status: A ctive [place] TABS (Allergy) Status: Active oxycodone (Allergy) Status: [...] Influenza on: 31-May-2011 Fluzone INJ Lot #: [id number] on: 20-Apr-2013 Fluzone Quadrivalent 0.5 ML Intramuscula r Suspension Prefilled Syringe Lot #: [id number] on: 06-Mar-2015 Pneumovax 23 25 MCG/0.5ML Injection Inje ctable on: 19-Nov-2018 Prevnar 13 Intramuscular Suspension Lot #: [id number] on: 19-Nov-2018 Influenza, seasonal, injectable on: 26-Mar-2019 [...] (finding) Vital Signs Date Test Result Details [id number] Physical Findings 0 Status: Comments: Q-9 Adult Depression Screening Physical Findings 0 Status: Comments: Al diazol Screen - How many times in the past yr have you had 5 (for M) or 4 (for F) or 4 (for all > 65yrs) or more drinks in a day? [id number] Systolic blood pressure 145 mm[Hg] Status: Diastolic blood pressure 80 mm[Hg] Status: Heart Rate 69 /min Status: [id number] Systolic blood pressure 148 mm[Hg] Status: Comments : Location: LUE; Position: Sitting Diastolic blood pressure 67 mm[Hg] Status: Comment s: Location: LUE; Position: Sitting Heart Rate 74 /min Status: Body height 68 in Status: Weight 199 lb Status: Body mass index (BMI) [Ratio] 30.26 kg/m2 Status: Body surface area Derived from formula 2.04 m2 S tatus: Body temperature 97.7 f Status: Comments: Nd thod: Temporal Respiratory rate 16 /min Status: [...] EDWARDS P.A. On: 17-Apr-2020 10:00 Interventions Provided Medication Changes* Atorvastatin Calcium 80 MG Oral Tablet - Renew * metFORMIN HCl - 500 MG Oral Tablet - Renew Labs/Procedures/Imaging* [QL] CREATINE KINASE, TOTAL; To Be Done: 14 Oct 2019 * Tobacco Use Screening; Done: 14 Oct 2019 Plan* HTN/CAD/Hx of infected pacemaker/Hx of arrhythmia/Aortic valve disease - per cardiology recommendations; advised to increase exercise; if BP still > 140/90, contact cardiology to discuss further management options * DM - recheck A1C; refer for retinopathy screening * Anemia - not taking iron supplement; recheck CBC, iron studies * HLD - continue atorvastatin; may need to d/c if CK is elevated * Myalgia - check CK, electrolytes * Right great toe abrasion - no signs of cellulitis/infection; advised pt to keep clean and dry; apply antibiotic ointment; f/u if signs/Sx of infection * F/u 6 months Instructions Name Dates Details Instructions not documented [...] Problem not documented On: 06-Aug-2019 10:20 Appointment; [facility] Encounter Diagnosis: Problem not documented On: 10-Aug-2019 8:45 Appointment; MOOK BARBER M .D. Encounter Diagnosis: Problem not documented On: 10-Aug-2019 15:00 Appointment; MOOK BARBER M .D. Encounter Diagnosis: Problem not documented On: 07-Sep-2019 9:40 Appointment; AMI EDWARDS P.A. Encounter Diagnosis: Problem not documented On: 14-Oct-2019 10:00
--- OUTSIDE RECORDS SUMMARY | 2019-11-11 21:03 | XMS REPORT | Summary of Care ---
Author Author Thelma Lau, JAQUI Waddell Unknown Address Unknown Phone Unavailable Care Team Providers Care Pluck Separator Name Role Phone JONATHAN Velarde, MIR Unavailable Unavailable SUNIL Velarde, MOOK Unavailable Unavailab marcella MATHEWS D.O., JIM Unavailable Unavailable GRACE P.A., AMI Unavailable Unavailable MALIA GARCIA [place], NAVEEN TOWNSEND Unavailable Unavailable JONATHAN GARCIA [place], MIR Cedillo Unavailable Unavailable MALIA Velarde, NAVEEN Unavailable Unavailable Sunil GARCIA, Mook Unavailable Unavailable CHRISTINE GARCIA, ERNESTO Hood Unavailable Unavailable Elizabeth R.NYanci, Kay Unavailable Unavailable GRACE PA, AMI LANDIS Unavailable Unavailable TRISHA GARCIA, FRANCISCO Miller Unavailable Unavailable Unavailable Unavailable Functional Status Name Dates Details Functional status health issues are not documented Status: Name Dates Details Cognitive status health issues are not d ocumented Status: Problems Name Dates Details Dementia (294.20, F03.90) Status: Active Erectile dysfunction (607.84, N52.9) Status: Active Status post aortic valve replacement wit h bioprosthetic valve (V42.2, Z95.3) Status: Active Claudication, intermittent (443.9, I73.9 ) Status: Active Status post aortic valve replacement wit h bioprosthetic valve (V42.2, Z95.3) Status: Active Severe aortic stenosis (424.1, I35.0) Status: Active Chest pain (786.50, R07.9) Status: Active Aortic valve disease (424.1, I35.9) Status: Active S/P aortic valve replacement (V43.3, Z95 .2) Status: Active S/P placement of cardiac pacemaker (V45. 01, Z95.0) Status: Active NSVT (nonsustained ventricular tachycard ia) (427.1, I47.2) Status: Active Duration Of Encounter - Review Of Prior Records (___ min) Status: Active Weight loss, unintentional (783.21, R63. 4) Status: Active Rectal bleeding (569.3, K62.5) Status: Active Type 2 diabetes mellitus (250.00, E11.9) Status: Active History of Infected pacemaker, subsequen t encounter (V58.89, T82.7XXD) Status: Resolved Closed wedge compression fracture of eig hth thoracic vertebra, initial encounter (805.2, S22.060A) Status: Active Hyperlipidemia, unspecified hyperlipidem ia type (272.4, E78.5) Status: Active Psoriasis (696.1, L40.9) Status: Active Thrombocytopenia (287.5, D69.6) Status: Active Vitamin B12 deficiency (266.2, E53.8) Status: Active Need for zoster vaccination (V04.89, Z23 ) Status: Active Iron deficiency anemia (280.9, D50.9) Status: Active Asthma (493.90, J45.909) Status: Active Ptosis of left eyelid (374.30, H02.402) Status: Active 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, 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 Abrasion of toe of right foot, initial e ncounter (917.0, S90.414A) Status: Active Diabetic retinopathy screening (V80.2, Z 13.5) Status: Active Negative depression screening (V79.0, Z1 3.31) Status: Active Myalgia (729.1, M79.10) Status: Active CAD (coronary artery disease) (414.00, I 25.10) Status: Active Essential (primary) hypertension (401.9, I10) Status: Active Allergic rhinitis (477.9, J30.9) Status: Active Obesity (BMI 30.0-34.9) (278.00, E66.9) Status: Active Never smoker Status: Active 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 561) Status: Active Memory loss or impairment (780.93, R41.3 ) Status: Active Aortic stenosis (424.1, I35.0) Status: Active Elevation of level of transaminase and l actic acid dehydrogenase (LDH) (790.4, R74.0) Status: Active Inguinal hernia (550.90, K40.90) Status: Active Sensorineural hearing loss, bilateral (3 89.18, H90.3) Status: Active Bilateral impacted cerumen (380.4, H61.2 3) Status: Active Decreased hearing of both ears (389.9, H 91.93) Status: Active Medications Name Dates Details Aspirin [...] DAILY * Quantity: 1 Refills: 0 JONATHAN M.MIR Navas Active 60 GM Tube Fluocinolone Acetonide Body 0.01 % External Oil Apply once daily to face and body * Quantity: 1 Refills: 0 JONATHAN M.DMIR Pete Active 118.28 ML Bottle ProAir HFA 108 [...] Start : 13-Jan-2019 Active OneTouch Delica Plus [id number] USE DIRECTED EVERY DAY * Quantity: 100 [...] Details Morphine Derivatives (Allergy) Status: A ctive [place] TABS (Allergy) Status: Active oxycodone (Allergy) Status: [...] CREATINE KINASE, TOTAL Date: 14-Oct-2019 History of Cholecystectomy Completed History of Tonsillectomy With Adenoidectomy Completed History of Permanent pacemaker insertion Completed History of Aortic valve replacement Comp leted Immunization Name Dates Details Tdap on: Aug-2010 Influenza on: 31-May-2011 Fluzone INJ Lot #: [id number] on: 20-Apr-2013 Fluzone Quadrivalent 0.5 ML Intramuscula r Suspension Prefilled Syringe Lot #: [id number] on: 06-Mar-2015 Pneumovax 23 25 MCG/0.5ML Injection Inje ctable on: 19-Nov-2018 Prevnar 13 Intramuscular Suspension Lot #: [id number] on: 19-Nov-2018 Influenza, seasonal, injectable on: 26-Mar-2019 Influenza, seasonal, injectable on: 26-Mar-2019 Family History Name Dates Details Family history of Hypertension (V17.49) Comments: Family History Status: Active Family history of Colon Cancer (V16.0) Comments: Family History Status: Active Family history of cardiovascular disease (V17.49, Z82.49) Comments: Family History Status: Active Name Dates Details Family history of Leukemia (V16.6) Status: Active FH: CABG (coronary artery bypass surgery ) (V17.3, Z82.49) Status: Active Name Dates Details Family history of H/O heart transplant ( V42.1, Z94.1) Status: Active Family history of Diabetes Mellitus (V18 .0) Status: Active Family history of malignant neoplasm [...] C. Paulino RODARTE et al. JACQUI. 2013;310(19): 8279-7626 (http ://education.[employer]BuyBox/faq/WPE173) CHOL/HDLC RATIO 2.5 {CALC} (Normal) Range: <5.0 [...] is approximately 13% higher for peopleidentified as -[place]. eGFR NON- 85 {ML/MIN/1.7} (Norm al) Range: [...] 10-35 ALT 31 u/l (Normal) Range: 9-46 :07 [QL] CBC (INCLUDES DIFF/PLT) WHITE BLOOD CELL [...] ABSOLUTE NEUTROPHILS 5480 {cells/uL} (Normal) R [place]: 1040-9661 ABSOLUTE LYMPHOCYTES 1353 {cells/uL} (Normal) R [place]: [...] For someone without known diabetes, a hemoglobin O0qgnvvi of 6.5% or greater indicates that they [...] On: 17-Apr-2020 10:00 Interventions Provided Medication Changes* hydroCHLOROthiazide 12.5 MG Oral Tablet - Renew * Losartan Potassium 100 MG Oral Tablet - Renew Instructions Name [...] Problem not documented On: 11-Jan-2019 11:30 Appointment; [facility], ECHO Encounter Diagnosis: Problem not documented On: [...]
--- OUTSIDE RECORDS SUMMARY | 2019-11-11 21:03 | XMS REPORT | Summary of Care ---
Author Author JAQUI CARLIN Unknown Address Unknown Phone Unavailable Care Team Providers Care Flaring Machine Operator Name Role Phone JONATHAN Velarde, MIR Unavailable Unavailable USNIL Velarde, MOOK Unavailable Unavailab marcella MATHEWS D.O., JIM Unavailable Unavailable GRACE Boothe, AMI Unavailable Unavailable MALIA GARCIA RI, NAVEEN TOWNSEND Unavailable Unavailable JONATHAN GARCIA RI, MIR Cedillo Unavailable Unavailable MALIA Velarde, NAVEEN Unavailable Unavailable Sunil GARCIA, Mook Unavailable Unavailable CHRISTINE GARCIA, ERNESTO Hood Unavailable Unavailable Janeckamy R.N., Mariyancy Unavailable Unavailable GRACEAMI TOSCANO Unavailable Unavailable TRISHA GARCIA, FRANCISCO Miller Unavailable [...] Start : 13-Jan-2019 Active OneTouch Delica Plus [id number] USE DIRECTED EVERY DAY * Quantity: 100 [...] Details Morphine Derivatives (Allergy) Status: A ctive [place] TABS (Allergy) Status: Active oxycodone (Allergy) Status: [...] Influenza on: 31-May-2011 Fluzone INJ Lot #: [id number] on: 20-Apr-2013 Fluzone Quadrivalent 0.5 ML Intramuscula r Suspension Prefilled Syringe Lot #: [id number] on: 06-Mar-2015 Pneumovax 23 25 MCG/0.5ML Injection Inje ctable on: 19-Nov-2018 Prevnar 13 Intramuscular Suspension Lot #: [id number] on: 19-Nov-2018 Influenza, seasonal, injectable on: 26-Mar-2019 [...] Details :17 Physical Findings 0 Status: Comments: Q-9 Adult [...] LDL- C. Paulino RODARTE et al. JACQUI. 2013;310(32): 8862-4459 (http ://education.[employer]/faq/WAV339) CHOL/HDLC RATIO 2.5 {CALC} (Normal) Range: <5.0 [...] is approximately 13% higher for peopleidentified as -[place]. eGFR NON- 85 {ML/MIN/1.7} (Norm al) Range: [...] ABSOLUTE NEUTROPHILS 5480 {cells/uL} (Normal) R [place]: 5734-4341 ABSOLUTE LYMPHOCYTES 1353 {cells/uL} (Normal) R [place]: [...] For someone without known diabetes, a hemoglobin Q5lzelck of 6.5% or greater indicates that they [...] On: 17-Apr-2020 10:00 Interventions Provided Medication Changes* Ferrous Sulfate 325 (65 Fe) MG Oral Tablet - Start Discussion/Summary* Cholesterol is stable. Blood sugar levels have been slightly elevated above goal (7.1%); continue metformin and follow diabetic diet. Anemia is improving, but iron level is low; restart iron supplement. Labs are otherwise normal. Instructions Name Dates Details Instructions not documented [...] Problem not documented On: 22-Jan-2018 9:30 [facility]ointment; [facility] Encounter Diagnosis: Problem not documented On: [...] Problem not documented On: 19-May-2018 11:30 Appointment; [facility], STRESS Encounter Diagnosis: Problem not documented On: [...]
[2019-11-11] MEDS ORDERED: ACETAMINOPHEN 325 MG TAB PO ONE ×2 (21:45→22:45)
[2019-11-11] MEDS ORDERED: CEFEPIME 2 GM/NS 0.9% 100 ML 100 ML IV ONE (21:45)
[2019-11-11] MEDS ORDERED: SODIUM CHLORIDE 0.9% 1000ML 1,000 ML IV ONE (21:45)
--- NOTE | 2019-11-11 21:51 | Emergency Department Note ---
History of Present Illnes History of Present Illness Chief Complaint: General Medicine Complaints History of Present Illness This is a 74 year old Other male FEVER, CHILLS, BODY ACHES, BLACK DIARRHEA, WEAKNESS AND FATIGUE THAT STARTED FRIDAY AND CONTINUES TO GET WORSE. DENIES COUGH, CONGESTION, . Historian: Patient Arrival Mode: Car Onset (how long ago): day(s) (3) Location: ABD Quality: DIARRHEA Radiation: Reports non-radiation Severity: moderate Onset quality: sudden Duration (how long): day(s) (3) Progression: unchanged Chronicity: new Context: Denies recent illness, Denies recent surgery Relieving factors: none Exacerbating factors: none Associated symptoms: Reports fever/chills, Reports malaise, Reports weakness Past Medical/Family History Physician Review I have reviewed the patient's past medical and family history. Any updates have been documented here. Past Medical History Recent Fever: Yes Clinical Suspicion of Infectio: No New/Unexplained Change in Ment: No Past Medical History: Hypertension, Diabetes, CAD Other Medical History: GLAUCOMA AND CATARACTS Past Surgical History: Cholecysctectomy, T&A, Hernia Repair Other Surgery: AORTIC VALVE REPLACEMENT CARDIAC STENTS x4 Social History Smoking Cessation: Never Smoker Counseling Performed: No Alcohol Use: None Any Illegal Drug Use: No TB Exposure/Symptoms: No Physically hurt or threatened: No Family History Family history of heart diseas: No Other family history HTN, DM Other Last Tetanus: UTD Any Pre-Existing Lines (PICC,: No Is patient up to date on immun: No Last Flu: YES Last Pneumovax: NO Review of Systems Review of Systems Constitutional: Reports as per HPI EENTM: Reports no symptoms Cardiovascular: Reports no symptoms Respiratory: Reports no symptoms Gastrointestinal: Reports as per HPI Genitourinary: Reports no symptoms Musculoskeletal: Reports no symptoms Integumentary: Reports no symptoms Neurological: Reports no symptoms Psychological: Reports no symptoms Endocrine: Reports no symptoms Hematological/Lymphatic: Reports no symptoms Physical Exam Related Data Allergies: Coded Allergies: codeine (Verified Allergy, Intermediate, 11/11/19) fentanyl (Verified Allergy, Unknown, 05/05/18) morphine (Verified Allergy, Unknown, 05/05/18) oxycodone (Verified Allergy, Unknown, 05/05/18) Triage Vital Signs Vital Signs Date Time Temp Pulse Resp B/P (MAP) Pulse Ox O2 Delivery O2 Flow Rate FiO2 11/11/19 21:29 102.6 108 14 153/79 98 Vital signs reviewed: Yes Physical Exam CONSTITUTIONAL Constitutional: Reports well-developed, Reports well-nourished HENT HENT: Reports normocephalic, Reports atraumatic, Reports oropharynx clear/moist, Reports nose normal HENT L/R: Reports left ext ear normal, Reports right ext ear normal EYES Eyes: Reports PERRL, Reports conjunctivae normal NECK Neck: Reports ROM normal PULMONARY Pulmonary: Reports effort normal, Reports breath sounds normal CARDIOVASCULAR Cardiovascular: Reports regular rhythm, Reports heart sounds normal, Reports capillary refill normal, Reports tachycardia (108) GASTROINTESTINAL Abdominal: Reports soft, Reports nontender, Reports bowel sounds normal GENITOURINARY Genitourinary: Reports exam deferred SKIN Skin: Reports warm, Reports dry MUSCULOSKELETAL Musculoskeletal: Reports ROM normal NEUROLOGICAL Neurological: Reports alert, Reports oriented x 3, Reports no gross motor or sensory deficits PSYCHOLOGICAL Psychological: Reports mood/affect normal, Reports judgement normal Results Laboratory Laboratory Laboratory Tests Test 11/11/19 22:30 11/11/19 22:20 11/11/19 21:45 Amylase Level 57 U/L (25-125) Lipase 25 U/L (8-78) White Blood Count 10.33 x10e3/uL (4.8-10.8) Red Blood Count 4.44 x10e6/uL (4.3-5.7) Hemoglobin 12.5 g/dL (14.0-18.0) Hematocrit 38.8 % (38.2-49.6) Mean Corpuscular Volume 87.4 fL (81-99) Mean Corpuscular Hemoglobin 28.2 pg (28-32) Mean Corpuscular Hemoglobin Concent 32.2 g/dL (31-35) Red Cell Distribution Width 14.5 % (11.7-14.4) Platelet Count 136 x10e3/uL (140-360) Neutrophils (%) (Auto) 88.2 % (38.7-80.0) Lymphocytes (%) (Auto) 5.3 % (18.0-39.1) Monocytes (%) (Auto) 5.9 % (4.4-11.3) Eosinophils (%) (Auto) 0.0 % (0.0-6.0) Basophils (%) (Auto) 0.3 % (0.0-1.0) Neutrophils # (Auto) 9.1 (2.1-6.9) Lymphocytes # (Auto) 0.6 (1.0-3.2) Monocytes # (Auto) 0.6 (0.2-0.8) Eosinophils # (Auto) 0.0 (0.0-0.4) Basophils # (Auto) 0.0 (0.0-0.1) Absolute Immature Granulocyte (auto 0.03 x10e3/uL (0-0.1) Prothrombin Time 13.0 seconds (11.9-14.5) Prothromb Time International Ratio 0.93 Activated Partial Thromboplast Time 33.7 seconds (23.8-35.5) Sodium Level 136 mmol/L (136-145) Potassium Level 3.2 mmol/L (3.5-5.1) Chloride Level 101 mmol/L (98-107) Carbon Dioxide Level 21 mmol/L (22-29) Anion Gap 17.2 mmol/L (8-16) Blood Urea Nitrogen 18 mg/dL (7-26) Creatinine 1.01 mg/dL (0.72-1.25) Estimat Glomerular Filtration Rate > 60 ML/MIN (60-) BUN/Creatinine Ratio 18 (6-25) Glucose Level 149 mg/dL (74-118) Lactic Acid Level 1.5 mmol/L (0.5-2.0) Calcium Level 9.4 mg/dL (8.4-10.2) Total Bilirubin 1.8 mg/dL (0.2-1.2) Aspartate Amino Transf (AST/SGOT) 22 IU/L (5-34) Alanine Aminotransferase (ALT/SGPT) 28 IU/L (0-55) Alkaline Phosphatase 55 IU/L (40-150) Creatine Kinase 100 IU/L (30-200) Creatine Kinase MB 0.60 ng/mL (0-5.0) Troponin I 0.017 ng/mL (0-0.300) Total Protein 7.6 g/dL (6.5-8.1) Albumin 3.8 g/dL (3.5-5.0) Globulin 3.8 g/dL (2.3-3.5) Albumin/Globulin Ratio 1.0 (0.8-2.0) Urine Color Yellow (YELLOW) Urine Clarity Sl cloudy (CLEAR) Urine pH 5 (5 - 7) Urine Specific [place] 1.030 (1.010-1.025) Urine Protein 1+ (NEGATIVE) Urine Glucose (UA) Negative (NEGATIVE) Urine Ketones Trace (NEGATIVE) Urine Blood Trace (NEGATIVE) Urine Nitrite Negative (NEGATIVE) Urine Bilirubin Negative (NEGATIVE) Urine Urobilinogen 0.2 mg/dL (0.2 - 1) Urine Leukocyte Esterase Negative (NEGATIVE) Urine RBC 6-10 /HPF (0-5) Urine WBC 6-10 /HPF (0-5) Urine Epithelial Cells Many /LPF (NONE) Urine Bacteria Many /HPF (NONE) Lab results reviewed: Yes Imaging Imaging results reviewed: Yes Impressions EXAMINATION: CHEST SINGLE (PORTABLE) INDICATION: ^Y ^FEVER ^20191111 ^2330 ^Y COMPARISON: None FINDINGS: AP view TUBES and LINES: None. LUNGS: Lungs are well inflated. There is no evidence of pneumonia or pulmonary edema. Minimal right basilar subsegmental atelectasis. PLEURA: No pleural effusion or pneumothorax. HEART AND MEDIASTINUM: The cardiomediastinal silhouette is unremarkable. BONES AND SOFT TISSUES: No acute osseous lesion. Medial mid chest plate and screw construct of rib. Soft tissues are unremarkable. UPPER ABDOMEN: No free air under the diaphragm. IMPRESSION: No acute thoracic abnormality. Signed by: Dr. Boby Miller MD on 11/12/2019 12:40 AM Patient Name: JAQUI JARVIS MR #: [id number] : 1945 Age/Sex: 74/M Req #: [id number] Adm Physician: Ordered by: ERNESTO JUAREZ MD Report #: [id number] Location: ER Room/Bed: Procedure: CT/CT ABDOMEN/PELVIS W Exam Date: 11/11/19 Exam Time: 2330 REPORT STATUS: Signed EXAM: CT Abdomen and Pelvis without contrast INDICATION: ^Y ^FEVER DIARRHEA, BLACK STOOL ^20191111 ^2329 ^Y COMPARISON: None. TECHNIQUE: Abdomen and pelvis were scanned utilizing a multidetector helical scanner from the lung base to the pubic symphysis without administration of IV contrast. Coronal and sagittal reformations were obtained. Dose modulation, iterative reconstruction, and/or weight based adjustment of the mA/kV was utilized to reduce the radiation dose to as low as reasonably achievable. Routine protocol was performed. IV CONTRAST: None ORAL CONTRAST: None COMPLICATIONS: None RADIATION DOSE: Total DLP: 822.98 mGy*cm Estimated effective dose: (DLP x 0.015 x size factor) mSv CTDIvol has been reviewed. It is below the limits set by the Radiation Protocol Committee (RPC). FINDINGS: LINES and TUBES: None. LOWER THORAX: Partially seen severe atherosclerotic calcification of coronary arteries, mitral valve, and aortic valve. Mild right dependent atelectasis. HEPATOBILIARY: Hepatic steatosis. Otherwise, unenhanced liver is unremarkable. No biliary ductal dilation. GALLBLADDER: Surgically absent. SPLEEN: No splenomegaly. PANCREAS: No focal masses or ductal dilatation. ADRENALS: No adrenal nodules KIDNEYS/URETERS: Kidneys enhance symmetrically. No hydronephrosis. Limited for evaluation of renal parenchyma without intravenous contrast. Bilateral nonspecific perinephric fat stranding. No stones. GI TRACT: No abnormal distention, wall thickening, or evidence of bowel obstruction. Few scattered colonic diverticula without evidence of diverticulitis. Appendix is normal. PELVIC ORGANS/BLADDER: Enlarged prostate. Bladder wall thickening. LYMPH NODES: No lymphadenopathy. VESSELS: Unremarkable. PERITONEUM / RETROPERITONEUM: No free air or fluid. BONES: Degenerative changes of lower lumbar spine. SOFT TISSUES: Unremarkable. IMPRESSION: 1. No definite evidence of acute inflammatory process in the abdomen/pelvis, considering limitations of unenhanced study. 2. Hepatic steatosis. 3. Enlarged prostate with bladder wall thickening, which is probably due to chronic outflow obstruction. Signed by: Dr. Boby Miller MD on 11/12/2019 12:38 AM Procedures 12 Lead ECG Interpretation ECG Interpretation : ECG: ECG 1 Automatic Pinsetter Mechanic: Interpreted by ED physician Date: Nov 11, 2019 Time: 21:32 Rhythm: sinus tachycardia Rate: tachycardia BPM: 108 QRS axis: left ST segments normal: Yes T waves normal: Yes Q waves: III, V1 Clinical Impression: abnormal ECG Assessment & Plan Medical Decision Making MDM Patient with fever body aches chills diarrhea since Friday. . SIRS criteria temp 102.6, heart rate greater than 90, respiratory greater than 20. CBC, CMP, amylase, lipase, UA, urine culture, blood culture, lactic acid, chest x-ray, CT abdomen and pelvis ordered to eval for sepsis, UTI, pneumonia, electrolyte abnormality,'s, pancreatitis, diverticulitis, colitis, elevated LFTs. Cefepime 2 g IV ordered, Zofran 4 mg IV ordered, normal saline 1 L bolus ordered, Tylenol 975 mg by mouth ordered. I SPOKE WITH DR NICHOLAS ADMIT TO INPATIENT Assessment & Plan Final Impression: (1) Fever (2) UTI (urinary tract infection) (3) Diarrhea Depart Disposition: ADMITTED Last Vital Signs Date Time Temp Pulse Resp B/P (MAP) Pulse Ox O2 Delivery O2 Flow Rate FiO2 11/11/19 21:29 102.6 109 24 153/79 97 Medications in the ED Sodium Chloride 1,000 ml @ 999 mls/hr Q1H1M ONCE IV ; Start 11/11/19 at 21:45; Stop 11/11/19 at 22:45 Cefepime HCl 100 ml @ 200 mls/hr ONCE ONCE IV ; Start 11/11/19 at 21:45; Stop 11/11/19 at 22:14; Status UNV Acetaminophen 325 mg ONCE ONCE PO ; Start 11/11/19 at 21:45; Stop 11/11/19 at 21:46; Status UNV ERNESTO JUAREZ MD Nov 11, 2019 21:51
[2019-11-11 22:29] LABS: BILIRUBIN,URINE NEGATIVE (NEGATIVE); CLARITY,URINE SL CLOUDY (CLEAR); COLOR,URINE YELLOW (YELLOW); KETONES,URINE TRACE (NEGATIVE); LEUKOCYTE ESTERASE ,URINE NEGATIVE (NEGATIVE); NITRITE,URINE NEGATIVE (NEGATIVE); PROTEIN,URINE DIPSTICK 1+ (NEGATIVE); URINE UROBILINOGEN 0.2 mg/dL (0.2 - 1)
[2019-11-11 22:54] LABS: BASOPHILS % 0.3 % (0.0-1.0); HEMATOCRIT 38.8 % (38.2-49.6); HEMOGLOBIN 12.5 g/dL (14.0-18.0); LYMPHOCYTES # (AUTO) 0.6 (1.0-3.2); LYMPHOCYTES % 5.3 % (18.0-39.1); MEAN CORPUSCULAR HEMOGLOBIN 28.2 pg (28-32); MEAN CORPUSCULAR HGB CONC 32.2 g/dL (31-35); MEAN CORPUSCULAR VOLUME 87.4 fL (81-99); MONOCYTES # (AUTO) 0.6 (0.2-0.8); MONOCYTES % 5.9 % (4.4-11.3); NEUTROPHILS # (AUTO) 9.1 (2.1-6.9); NEUTROPHILS % 88.2 % (38.7-80.0); RED BLOOD COUNT 4.44 x10e6/uL (4.3-5.7); RED CELL DISTRIBUTION WIDTH 14.5 % (11.7-14.4)
[2019-11-11 22:59] LABS: INR 0.93
[2019-11-11 23:00] LABS: PARTIAL THROMBOPLASTIN TIME 33.7 seconds (23.8-35.5)
[2019-11-11 23:09] LABS: ALANINE AMINOTRANSFERASE 28 IU/L (0-55); ALBUMIN 3.8 g/dL (3.5-5.0); ALKALINE PHOSPHATASE 55 IU/L (40-150); ANION GAP 17.2 mmol/L (8-16); BLOOD UREA NITROGEN 18 mg/dL (7-26); BUN/CREATININE RATIO 18 (6-25); CALCIUM 9.4 mg/dL (8.4-10.2); CARBON DIOXIDE 21 mmol/L (22-29); CHLORIDE 101 mmol/L (98-107); CREATINE KINASE 100 IU/L (30-200); CREATININE, SERUM 1.01 mg/dL (0.72-1.25); EST GLOMERULAR FILTRATION RATE > 60 ML/MIN (60-); GLUCOSE 149 mg/dL (74-118); POTASSIUM 3.2 mmol/L (3.5-5.1); SODIUM 136 mmol/L (136-145)
[2019-11-11 23:09] LABS: AMYLASE 57 U/L (25-125); LIPASE 25 U/L (8-78)
[2019-11-11] MEDS ORDERED: SODIUM CHLORIDE 0.9% 50ML 50 ML ONE (23:26)
[2019-11-11] MEDS ORDERED: IOPAMIDOL 370 MG/ML 200 ML INFUS..BTL INJ ONE (23:26)
[2019-11-11 23:30] LABS: BACTERIA,URINE MANY /HPF; EPITHELIAL CELLS,URINE MANY /LPF
--- NOTE | 2019-11-12 00:42 | Diagnostic Imaging Report ---
EXAM: CT Abdomen and Pelvis without contrast INDICATION: ^Y ^FEVER DIARRHEA, BLACK STOOL ^20191111 ^2330 ^Y COMPARISON: None. TECHNIQUE: Abdomen and pelvis were scanned utilizing a multidetector helical scanner from the lung base to the pubic symphysis without administration of IV contrast. Coronal and sagittal reformations were obtained. Dose modulation, iterative reconstruction, and/or weight based adjustment of the mA/kV was utilized to reduce the radiation dose to as low as reasonably achievable. Routine protocol was performed. IV CONTRAST: None ORAL CONTRAST: None COMPLICATIONS: None RADIATION DOSE: Total DLP: 822.98 mGy*cm Estimated effective dose: (DLP x 0.015 x size factor) mSv CTDIvol has been reviewed. It is below the limits set by the Radiation Protocol Committee (RPC). FINDINGS: LINES and TUBES: None. LOWER THORAX: Partially seen severe atherosclerotic calcification of coronary arteries, mitral valve, and aortic valve. Mild right dependent atelectasis. HEPATOBILIARY: Hepatic steatosis. Otherwise, unenhanced liver is unremarkable. No biliary ductal dilation. GALLBLADDER: Surgically absent. SPLEEN: No splenomegaly. PANCREAS: No focal masses or ductal dilatation. ADRENALS: No adrenal nodules KIDNEYS/URETERS: Kidneys enhance symmetrically. No hydronephrosis. Limited for evaluation of renal parenchyma without intravenous contrast. Bilateral nonspecific perinephric fat stranding. No stones. GI TRACT: No abnormal distention, wall thickening, or evidence of bowel obstruction. Few scattered colonic diverticula without evidence of diverticulitis. Appendix is normal. PELVIC ORGANS/BLADDER: Enlarged prostate. Bladder wall thickening. LYMPH NODES: No lymphadenopathy. VESSELS: Unremarkable. PERITONEUM / RETROPERITONEUM: No free air or fluid. BONES: Degenerative changes of lower lumbar spine. SOFT TISSUES: Unremarkable. IMPRESSION: 1. No definite evidence of acute inflammatory process in the abdomen/pelvis, considering limitations of unenhanced study. 2. Hepatic steatosis. 3. Enlarged prostate with bladder wall thickening, which is probably due to chronic outflow obstruction. Signed by: Dr. Boby Miller MD on 11/12/2019 12:38 AM
--- NOTE | 2019-11-12 00:44 | Diagnostic Imaging Report ---
EXAMINATION: CHEST SINGLE (PORTABLE) INDICATION: ^Y ^FEVER ^20191111 ^2330 ^Y COMPARISON: None FINDINGS: AP view TUBES and LINES: None. LUNGS: Lungs are well inflated. There is no evidence of pneumonia or pulmonary edema. Minimal right basilar subsegmental atelectasis. PLEURA: No pleural effusion or pneumothorax. HEART AND MEDIASTINUM: The cardiomediastinal silhouette is unremarkable. BONES AND SOFT TISSUES: No acute osseous lesion. Medial mid chest plate and screw construct of rib. Soft tissues are unremarkable. UPPER ABDOMEN: No free air under the diaphragm. IMPRESSION: No acute thoracic abnormality. Signed by: Dr. Boby Miller MD on 11/12/2019 12:40 AM
[2019-11-12] MEDS ORDERED: SODIUM CHLORIDE 0.9% 1000ML 1,000 ML IV SCH (01:00)
[2019-11-12] MEDS ORDERED: ONDANSETRON HCL INJ 2MG/ML 2ML 2 MG/ML VIAL IV PRN (01:00)
[2019-11-12] MEDS ORDERED: ACETAMINOPHEN 325 MG TAB PO PRN (01:00)
--- OUTSIDE RECORDS SUMMARY | 2019-11-12 01:04 | XMS REPORT | Continuity of Care Document ---
Author Author [facility] t Organization [facility] Address [address] [place] [address] Phone Unavailable Care Team Providers Care Voice Professor Name Role Phone Andrew FINLEY PCP Kristi JUAREZ Attphys Unavailable AMI EDWARDS P.A. Attphys Unavailable MERLYN BARBER M.D. Attphys Unavaila ble [facility], NUCLEAR Attphys Unavailable GLADIS ORTGEA M.D. Attphys Unavailable [facility], ECHO Attphys Unavailable [facility], STRESS Attphys Unavailable Marlon YOON Attphys Unavailable ERNESTO KIGN M.D. Attphys Unavailable ROSANNE ORELLANA M.D. Attphys Unavailable STEPHON CAN Attphys Unavailable SOL DE JESUS Attphys Unavailable MIR CASTILLO M.D. Attphys Unavailable STEPHANIE RICHARDSON M.D. Attphys Unavailable HU ROMANO NP Attphys Unavailable DOTTIE RODRIGUEZ M.D. Attphys Unavailable ERNESTO TOLEDO M.D. Attphys Unavailable PAULA STEVE M.D. Attphys Unavailable Payers Payer Name Policy Type Policy Number Effective Date Expiration Date Paul Brantley [id number] 2018 00:00:00 DESI Severino [facility] Problems Condition Name Condition Details Condition Category Status Onset Date Resolution Date Last Treatment Date Treating Clinician Comments Source Never smoker Never smoker Problem Active [facility] Duration Of Encounter - Review Of Prior Records (___ m in) Duration Of Encounter - Review Of Prior Records (___ min) Problem Active [facility] History of Abnormal blood chemistry History of Abnormal blood ch emistry Problem Resolved [facility] History of anticoagulant therapy History of anticoagulant therap y Problem Resolved [facility] History of At standard risk for fall History of At standard risk for fall Problem Resolved [facility] Asthma Asthma Problem Active [facility] History of paroxysmal supraventricular tachycardia His tory of paroxysmal supraventricular tachycardia Problem Resolved [facility] History of diabetes mellitus History of diabetes mellitus Problem Re solved [facility] History of Exertional angina History of Exertional angina Problem Re solved [facility] History of rectal bleeding History of rectal bleeding Problem Resolved [facility] History of tinea corporis History of tinea corporis Problem Resolved [facility] 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 Problem Active [facility] Elevation of level of transaminase and lactic acid deh ydrogenase (LDH) Elevation of level of transaminase and lactic acid dehydrogenase (LDH) Problem Active [facility] Need for zoster vaccination Need for zoster vaccination Problem Active [facility] Weight loss, unintentional Weight loss, unintentional Problem Active [facility] Chronic pain of right knee Chronic pain of right knee Problem Active [facility] Negative depression screening Negative depression screening Problem Active [facility] Memory loss or impairment Memory loss or impairment Problem Active [facility] Inguinal hernia Inguinal hernia Problem Active [facility] History of Pleural effusion on right History of Pleural effu sheba on right Problem Resolved [facility] Dementia Dementia Problem Active [facility] S/P placement of cardiac pacemaker S/P placement of cardiac pace maker Problem Active [facility] Severe aortic stenosis Severe aortic stenosis Problem Active [facility] Status post aortic valve replacement with bioprostheti c valve Status post aortic valve replacement with bioprosthetic valve Problem Active [facility] Rectal bleeding Rectal bleeding Problem Active [facility] Ptosis of left eyelid Ptosis of left eyelid Problem Active [facility] Bilateral impacted cerumen Bilateral impacted cerumen Problem Active [facility] Decreased hearing of both ears Decreased hearing of both ears Problem Active [facility] Sensorineural hearing loss, bilateral Sensorineural hearing loss, bilateral Problem Active [facility] Closed wedge compression fracture of eig hth thoracic vertebra, initial encounter Closed wedge compression fracture of eig hth thoracic vertebra, initial encounter Problem Active [facility] Dorantes's palsy Dorantes's palsy Problem Active [facility] Thrombocytopenia Thrombocytopenia Problem Active [facility] Psoriasis Psoriasis Problem [facility] Vitamin B12 deficiency Vitamin B12 deficiency Problem Active [facility] Erectile dysfunction Erectile dysfunction Problem Active [facility] Iron deficiency anemia Iron deficiency anemia Problem Active [facility] Type 2 diabetes mellitus Type 2 diabetes mellitus Problem Active [facility] Claudication, intermittent Claudication, intermittent Problem Active [facility] History of Infected pacemaker, subsequent encounter Hi story of Infected pacemaker, subsequent encounter Problem Resolved [facility] Allergic rhinitis Allergic rhinitis Problem Active [facility] Obesity (BMI 30.0-34.9) Obesity (BMI 30.0-34.9) Problem Active [facility] NSVT (nonsustained ventricular tachycardia) NSVT (nons ustained ventricular tachycardia) Problem Active [facility] S/P aortic valve replacement S/P aortic valve replacement Problem Active [facility] Chest pain Chest pain [facility] CAD (coronary artery disease) CAD (coronary artery disease) Problem Active [facility] Aortic valve disease Aortic valve disease Problem Active [facility] Essential (primary) hypertension Essential (primary) hypertensio n Problem Active [facility] Hyperlipidemia, unspecified hyperlipidemia type Hyperl ipidemia, unspecified hyperlipidemia type Problem Active [facility] History of bacteremia History of bacteremia Problem Resolved [facility] Diabetic retinopathy screening Diabetic retinopathy screening Problem Active [facility] Myalgia Myalgia Problem Active [facility] Abrasion of toe of right foot, initial encounter Abras ion of toe of right foot, initial encounter Problem Active [facility] Hypertension Hype rtension Active 09/30/2013 [facility] Problem Active 2013-09-30 14:47:30 Case Enciso Fatigue Fati anton Active 09/30/2013 [facility] Problem Active 2013-09-30 14:47:30 Mary Enciso Male Erectile Disorder Male Erectile Disorder Active 09/30/2013 [facility] Problem Active 2013-09-30 14:47:30 Yoshi Enciso Metabolic Tests Nonspecific Elevation Of Transaminase Levels Metabolic Tests Nonspecific Elevation Of Transaminase Levels Active 09/30/2013 [facility] Problem Active 2013-09-30 14:47:30 Yoshi Enciso Abnormal Electrocardiogram Abn ormal Electrocardiogram Active 09/30/2013 [facility] Problem Active 2013-09-30 14:47: 30 Yoshi Enciso Contusion With Intact Skin Surface Contusion With Intact Skin Surface Active 07/29/2013 [facility] Problem Active 2013-07-29 15:17:42 Yoshi Enciso Acute Upper Respiratory Infection Acute Upper Respiratory Infection Active 07/29/2013 [facility] Problem Active 2013-07-29 15:17:42 Yoshi Enciso Skin: A Rash Skin : A Rash Active 09/30/2013 [facility] Problem Active 2013-09-30 14:47:30 Case Enciso Allergies, Adverse Reactions, Alerts Allergy Name Allergy Type Status Severity Reaction(s) Onset Date Inacti ve Date Treating Clinician Comments Source Morphine Allergy to Substance Active 2018-05-05 00:00:00 [facility] Oxycodone Allergy to Substance Active 2018-05-05 00:00:00 [facility] Fentanyl Allergy to Substance Active 2018-05-05 00:00:00 [facility] Morphine Derivatives Allergy to drug (finding) Active [facility] Elizabeth TABS Allergy to drug (finding) Active [facility] oxycodone Allergy to drug (finding) Active [facility] Tylenol with Codeine #3 TABS Allergy to drug (finding) Active [facility] Family History Family Member Diagnosis Comments Start Date Stop Date Source Unknown Family Member Family history of Colon Cancer Family History [facility] Unknown Family Member Family history of Hypertension Family History [facility] Unknown Family Member Family history of cardiovascular disease Fami ly History [facility] Unknown Family Member Family History 2013-04-15 17:48:12 2 17:48:12 Yoshi Enciso Father Family history of Leukemia [facility] Father FH: CABG (coronary artery bypass surgery) [facility] Brother Family history of Diabetes Mellitus [facility] Brother Family history of H/O heart transplant [facility] Brother Family history of malignant neoplasm of stomach [facility] Social History Social Habit Start Date Stop Date Quantity Comments Source Social History 2013-09-30 14:47:30 2013-09-30 14:47:30 Yoshi Enciso Smoking Status Start Date Stop Date Source Never smoked tobacco (finding) [facility] Medications Ordered Medication Name Filled Medication Name Start Date Stop Da te Current Medication? Ordering Clinician Indication Dosage Frequency Signature (SIG) Comments Components Source Ferrous Sulfate 325 (65 Fe) MG Oral Tablet Ferrous Sul fate 325 (65 Fe) MG Oral Tablet 2019-10-25 00:00:00 Yes AMI Boothe 1 TAKE 1 TABLET EVERY OTHER DAY [facility] Otezla 10 & 20 & 30 MG Oral Tablet Therapy Pack Otezla 10 & 20 & 30 MG Oral Tablet Therapy Pack 2019-07-19 00:00:00 Yes [facility] Losartan Potassium 100 MG Oral Tablet Losartan Potassium 100 MG Oral Tablet 2019-06-30 00:00:00 Yes MERLYN BARBER M.D. 1 QD TAKE 1 TABLET BY MOUTH DAILY [facility] hydroCHLOROthiazide 12.5 MG Oral Tablet hydroCHLOROthiazide 12.5 MG Oral Tablet 2019-06-30 00:00:00 Yes MERLYN BARBER M.D. TAKE 1 TABLET BY MOUTH EVERY DAY IN THE MORNING [facility] OneTouch Delica Plus [id number] OneTouch Delica Plus [id number] G 2019-04-13 00:00:00 Yes AMI Boothe USE DIRECTED EVERY DAY [facility] Vitamin B-12 1000 MCG Sublingual Tablet Sublingual Vit ann B-12 1000 MCG Sublingual Tablet Sublingual 2019-01-13 00:00:00 Yes AMI Botohe Dissolve 1 tablet sublingually once daily [facility] Shingrix 50 MCG Intramuscular Suspension Reconstituted Shingrix 50 MCG Intramuscular Suspension Reconstituted 2018-11-19 00:00:00 Yes AMI Boothe Administer at pharmacy as directed [facility] ProAir HFA 108 (90 Base) MCG/ACT Inhalation Aerosol So lution ProAir HFA 108 (90 Base) MCG/ACT Inhalation Aerosol Solution 2018-06-18 00:00:00 Ye s AMI JewellAYanci INHALE 1 TO 2 PUFFS EVERY 4 TO 6 HOUR S NEEDED. [facility] Clopidogrel Bisulfate 75 MG Oral Tablet Clopidogrel Bisulfat e 75 MG Oral Tablet 2018-02-21 00:00:00 Yes MERLYN BARBER M.D. 1 QD TAKE 1 TABLET BY MOUTH DAILY [facility] Atorvastatin Calcium 80 MG Oral Tablet Atorvastatin Calcium 80 MG Oral Tablet 2018-02-13 00:00:00 Yes AMI JewellAYanci TAKE 1 TABLET BY MOUTH EVERY DAY [facility] OneTouch Verio In Vitro Strip OneTouch Verio In Vitro Strip 2017 00:00:00 Yes AMI Boothe CHECK BLOOD SUGAR EV LM DAY [facility] OneTouch Delica Lancets Fine MISC OneTouch Delica Lancets Fi ne MISC 2017-06-11 00:00:00 Yes AMI Boothe USE DIRECTED EVERY DAY [facility] Accu-Chek SmartView In Vitro Strip Accu-Chek SmartView In Vi tro Strip 2015-03-16 00:00:00 Yes JIM MATHEWS D.O. Q0.5D TEST TWICE DAILY. [facility] metFORMIN HCl - 500 MG Oral Tablet metFORMIN HCl - 500 MG Or al Tablet 2015-03-16 00:00:00 Yes AMI Meraz.Harish 1 Q0.5D TAKE 2 TABLETS BY MOUTH EVERY 12 HOURS WITH FOOD [facility] Aspirin 81 MG Oral Tablet 2013-09-30 14:47:30 Yes (Active) Yoshi Enciso Calcipotriene 0.005 % External Cream 2013-09-16 05:00:00 Ye s ; Start Date: 09/16/2013; End Date: (Active) Yoshi Enciso Azithromycin 250 MG Oral Tablet 2013-07-24 06:00:00 Yes ; Start Date: 07/24/2013; End Date: 07/29/2013 (Active) Yoshi Enciso PredniSONE 10 MG Oral Tablet 2013-07-24 06:00:00 Yes ; Start Date: 07/24/2013; End Date: (Active) [facility]ie AmLODIPine Besylate 10 MG Oral Tablet 2013-04-27 06:00:00 Y es ; Start Date: 04/27/2013; End Date: (Active) [facility] amLODIPine Besylate 10 MG Oral Tablet amLODIPine Besylate 10 MG Oral Tablet 2013-04-27 00:00:00 Yes MERLYN BARBER M.D. TAKE 1 TABLET BY MOUTH DAILY [facility] Losartan Potassium-HCTZ 100-12.5 MG Oral Tablet [...] Start Date: 0; End Date: (Active) Yoshi Fernie Aspirin 81 MG TABS Aspirin 81 MG TABS Yes VIRAL BARBER M.D. TAKE ONE TABLET BY MOUTH ONCE DAILY [facility] Fluocinonide 0.05 % External Ointment Fluocinonide 0.05 % External Ointment Yes MIR CASTILLO M.D. APPLY SPARINGLY TO scalp ONCE DA NISSA [facility] Fluocinolone Acetonide Body 0.01 % External Oil Fluoci nolone Acetonide Body 0.01 % External Oil Yes MIR CASTILLO M.D. A pply once daily to face and body [facility] Immunizations Ordered Immunization Name Filled Immunization Name Date Status Comments Source Influenza, seasonal, injectable 2019-03-26 00:00:00 De hoyos [facility] Influenza, seasonal, injectable 2019-03-26 00:00:00 De hoyos [facility] Prevnar 13 Intramuscular Suspension 2018-11-19 09:47:00 Co mpleted [facility] Pneumovax 23 25 MCG/0.5ML Injection Injectable 2018-10 00:00:00 Completed [facility] Fluzone Quadrivalent 0.5 ML Intramuscular Suspension Prefill ed Syringe 2015-03-06 08:39:00 Completed [facility] Fluzone INJ 2013-04-20 08:21:00 Completed [facility] Influenza 2011-05-31 00:00:00 Completed [facility] Tdap Unknown Completed [facility] Vital Signs Vital Name Observation Time Observation Value Comments Source Systolic blood pressure 2019-10-14 10:11:00 145 mm[Hg] [facility] Diastolic blood pressure 2019-10-14 10:11:00 80 mm[Hg] [facility] Heart Rate 2019-10-14 10:11:00 69 /min [facility] Systolic blood pressure 2019-10-14 10:09:00 148 mm[Hg] Loca tion: LUE; Position: Sitting [facility] Diastolic blood pressure 2019-10-14 10:09:00 67 mm[Hg] Loc ation: LUE; Position: Sitting [facility] Heart Rate 2019-10-14 10:09:00 74 /min [facility] Body height 2019-10-14 10:09:00 68 [in_us] [facility] Weight 2019-10-14 10:09:00 199 [lb_av] [facility] Body mass index (BMI) [Ratio] 2019-10-14 10:09:00 30.26 kg/m2 [facility] Body temperature 2019-10-14 10:09:00 97.7 [degF] Method: Temporal [facility] Respiratory rate 2019-10-14 10:09:00 16 /min [facility] Systolic blood pressure 2019-08-10 15:16:00 138 mm[Hg] Loca tion: LUE; Position: Sitting [facility] Diastolic blood pressure 2019-08-10 15:16:00 71 mm[Hg] Loc ation: LUE; Position: Sitting [facility] Body height 2019-08-10 15:16:00 68 [in_us] [facility] Weight 2019-08-10 15:16:00 196.125 [lb_av] [facility] Body mass index (BMI) [Ratio] 2019-08-10 15:16:00 29.82 kg/m2 [facility] Heart Rate 2019-08-10 15:16:00 73 /min Location: L Radial; Q uality: Normal [facility] Systolic blood pressure 2019-08-06 10:22:00 124 mm[Hg] Loca tion: LUE; Position: Sitting [facility] Diastolic blood pressure 2019-08-06 10:22:00 70 mm[Hg] Loc ation: LUE; Position: Sitting [facility] Body height 2019-08-06 10:22:00 68 [in_us] [facility] Weight 2019-08-06 10:22:00 200 [lb_av] [facility] Body mass index (BMI) [Ratio] 2019-08-06 10:22:00 30.41 kg/m2 [facility] Heart Rate 2019-08-06 10:22:00 83 /min Location: L Brachial Artery; [facility] Systolic blood pressure 2019-07-19 15:48:00 134 mm[Hg] Loca tion: RUE; Position: Sitting [facility] Diastolic blood pressure 2019-07-19 15:48:00 77 mm[Hg] Loc ation: RUE; Position: Sitting [facility] Body height 2019-07-19 15:48:00 68 [in_us] [facility] Weight 2019-07-19 15:48:00 201 [lb_av] [facility] Body mass index (BMI) [Ratio] 2019-07-19 15:48:00 30.56 kg/m2 [facility] Body temperature 2019-07-19 15:48:00 98.3 [degF] Method: Oral [facility] Heart Rate 2019-07-19 15:48:00 82 /min Location: R Brachial Artery; [facility] O2 SAT 2019-07-19 15:48:00 98 % Source: [facility] BP Systolic 2019-03-30 08:11:00 134 mm[Hg] Location: TAL; Positi on: Sitting [facility] BP Diastolic 2019-03-30 08:11:00 76 mm[Hg] Location: TAL; Positi on: Sitting [facility] Height 2019-03-30 08:11:00 68 [in_us] [facility] Weight 2019-03-30 08:11:00 202 [lb_av] [facility] Body Mass Index Calculated 2019-03-30 08:11:00 30.71 kg/m2 [facility] Temperature 2019-03-30 08:11:00 97.4 [degF] Method: Temporal [facility] Respiration Rate 2019-03-30 08:11:00 16 /min [facility] Heart Rate 2019-03-30 08:11:00 71 /min [facility] O2 SAT 2019-03-30 08:11:00 98 % [facility] BP Systolic 2019-02-05 10:50:00 154 mm[Hg] Location: LUE; Positi on: Sitting [facility] BP Diastolic 2019-02-05 10:50:00 84 mm[Hg] Location: LUE; Positi on: Sitting [facility] Heart Rate 2019-02-05 10:50:00 77 /min Location: L Radial; Q uality: Normal [facility] BP Systolic 2019-02-05 10:49:00 144 mm[Hg] Location: LUE; Positi on: Sitting [facility] BP Diastolic 2019-02-05 10:49:00 74 mm[Hg] Location: LUE; Positi on: Sitting [facility] Heart Rate 2019-02-05 10:49:00 77 /min Location: L Radial; Q uality: Normal [facility] Height 2019-02-05 10:49:00 68 [in_us] [facility] Weight 2019-02-05 10:49:00 202 [lb_av] [facility] Body Mass Index Calculated 2019-02-05 10:49:00 30.71 kg/m2 [facility] BP Systolic 2019-01-11 11:26:00 118 mm[Hg] Location: LUE; Positi on: Sitting [facility] BP Diastolic 2019-01-11 11:26:00 68 mm[Hg] Location: LUE; Positi on: Sitting [facility] Height 2019-01-11 11:26:00 68 [in_us] [facility] Weight 2019-01-11 11:26:00 203.25 [lb_av] [facility] Body Mass Index Calculated 2019-01-11 11:26:00 30.9 kg/m2 [facility] Temperature 2019-01-11 11:26:00 98 [degF] Method: Temporal [facility] Heart Rate 2019-01-11 11:26:00 65 /min Location: L Brachial Artery; [facility] Respiration Rate 2019-01-11 11:26:00 16 /min [facility] BP Systolic 2018-11-19 13:57:00 130 mm[Hg] Location: DELILAH [facility] BP Diastolic 2018-11-19 13:57:00 74 mm[Hg] [facility] Height 2018-11-19 13:57:00 68 [in_us] [facility] Weight 2018-11-19 13:57:00 200 [lb_av] [facility] Body Mass Index Calculated 2018-11-19 13:57:00 30.41 kg/m2 [facility] Temperature 2018-11-19 13:57:00 98 [degF] Method: Temporal [facility] Respiration Rate 2018-11-19 13:57:00 16 /min [facility] Heart Rate 2018-11-19 13:57:00 62 /min [facility] BP Systolic 2018-08-20 08:58:00 122 mm[Hg] Location: DELILAH Positi on: Sitting [facility] BP Diastolic 2018-08-20 08:58:00 64 mm[Hg] Location: TAL; Positi on: Sitting [facility] Height 2018-08-20 08:58:00 68 [in_us] [facility] Weight 2018-08-20 08:58:00 202.25 [lb_av] [facility] Body Mass Index Calculated 2018-08-20 08:58:00 30.75 kg/m2 [facility] Temperature 2018-08-20 08:58:00 97.9 [degF] Method: Temporal [facility] Heart Rate 2018-08-20 08:58:00 67 /min [facility] Respiration Rate 2018-08-20 08:58:00 14 /min [facility] BP Systolic 2018-06-18 12:34:00 155 mm[Hg] [facility] [place] [facility] BP Diastolic 2018-06-18 12:34:00 79 mm[Hg] [facility] Heart Rate 2018-06-18 12:34:00 80 /min [facility] O2 SAT 2018-06-18 11:59:00 99 % [facility] BP Systolic 2018-06-18 11:44:00 152 mm[Hg] [facility] BP Diastolic 2018-06-18 11:44:00 89 mm[Hg] [facility] Heart Rate 2018-06-18 11:44:00 86 /min [facility] BP Systolic 2018-06-18 11:43:00 156 mm[Hg] Location: DELILAH Positi on: Sitting [facility] BP Diastolic 2018-06-18 11:43:00 89 mm[Hg] Location: DELILAH Positi on: Sitting [facility] Heart Rate 2018-06-18 11:43:00 90 /min [facility] Height 2018-06-18 11:43:00 68 [in_us] [facility] Weight 2018-06-18 11:43:00 202 [lb_av] [facility] Body Mass Index Calculated 2018-06-18 11:43:00 30.71 kg/m2 [facility] Temperature 2018-06-18 11:43:00 98 [degF] Method: Temporal [facility] Respiration Rate 2018-06-18 11:43:00 16 /min [facility] BP Systolic 2018-06-12 09:38:00 145 mm[Hg] Location: DELILAH Positi on: Sitting [facility] BP Diastolic 2018-06-12 09:38:00 87 mm[Hg] Location: DELILAH Positi on: Sitting [facility] Height 2018-06-12 09:38:00 68 [in_us] [facility] Weight 2018-06-12 09:38:00 200 [lb_av] [facility] Body Mass Index Calculated 2018-06-12 09:38:00 30.41 kg/m2 [facility] Heart Rate 2018-06-12 09:38:00 83 /min Location: L Radial; [facility] BP Systolic 2018-05-19 11:40:00 137 mm[Hg] Position: Sitting [facility] BP Diastolic 2018-05-19 11:40:00 78 mm[Hg] Position: Sitting [facility] Heart Rate 2018-05-19 11:40:00 79 /min [facility] BP Systolic 2018-05-19 11:21:00 130 mm[Hg] Location: LUE; Positi on: Sitting [facility] BP Diastolic 2018-05-19 11:21:00 69 mm[Hg] Location: LUE; Positi on: Sitting [facility] Heart Rate 2018-05-19 11:21:00 86 /min [facility] Height 2018-05-19 11:21:00 68 [in_us] [facility] Weight 2018-05-19 11:21:00 200 [lb_av] [facility] Body Mass Index Calculated 2018-05-19 11:21:00 30.41 kg/m2 [facility] Temperature 2018-05-19 11:21:00 98 [degF] Method: Temporal [facility] Respiration Rate 2018-05-19 11:21:00 16 /min [facility] BP Systolic 2018-03-19 08:49:00 149 mm[Hg] Location: LUE; Positi on: Sitting [facility] BP Diastolic 2018-03-19 08:49:00 89 mm[Hg] Location: LUE; Positi on: Sitting [facility] Heart Rate 2018-03-19 08:49:00 84 /min [facility] BP Systolic 2018-03-19 08:31:00 161 mm[Hg] Location: LUE; Positi on: Sitting [facility] BP Diastolic 2018-03-19 08:31:00 87 mm[Hg] Location: LUE; Positi on: Sitting [facility] Heart Rate 2018-03-19 08:31:00 82 /min [facility] Height 2018-03-19 08:31:00 68 [in_us] [facility] Weight 2018-03-19 08:31:00 201.5625 [lb_av] [facility] Body Mass Index Calculated 2018-03-19 08:31:00 30.65 kg/m2 [facility] Temperature 2018-03-19 08:31:00 97.9 [degF] Method: Temporal [facility] Respiration Rate 2018-03-19 08:31:00 16 /min [facility] BP Systolic 2018-02-24 11:52:00 142 mm[Hg] Location: LUE; Positi on: Sitting [facility] BP Diastolic 2018-02-24 11:52:00 77 mm[Hg] Location: LUE; Positi on: Sitting [facility] Height 2018-02-24 11:52:00 91 [in_us] [facility] Weight 2018-02-24 11:52:00 203.375 [lb_av] [facility] Body Mass Index Calculated 2018-02-24 11:52:00 17.27 kg/m2 [facility] Temperature 2018-02-24 11:52:00 98.6 [degF] Method: Oral [facility] Heart Rate 2018-02-24 11:52:00 69 /min [facility] Respiration Rate 2018-02-24 11:52:00 22 /min [facility] BP Systolic 2018-01-22 09:31:00 136 mm[Hg] Location: LUE; Positi on: Sitting [facility] BP Diastolic 2018-01-22 09:31:00 76 mm[Hg] Location: LUE; Positi on: Sitting [facility] Height 2018-01-22 09:31:00 67 [in_us] [facility] Weight 2018-01-22 09:31:00 201.125 [lb_av] [facility]ive [facility] Body Mass Index Calculated 2018-01-22 09:31:00 31.5 kg/m2 [facility] Heart Rate 2018-01-22 09:31:00 70 /min [facility] BP Systolic 2018-01-08 10:35:00 134 mm[Hg] Location: LUE; Positi on: Sitting [facility] BP Diastolic 2018-01-08 10:35:00 75 mm[Hg] Location: LUE; Positi on: Sitting [facility] Height 2018-01-08 10:35:00 67 [in_us] [facility] Weight 2018-01-08 10:35:00 198.5 [lb_av] [facility] Body Mass Index Calculated 2018-01-08 10:35:00 31.09 kg/m2 [facility] Heart Rate 2018-01-08 10:35:00 70 /min [facility] Respiration Rate 2018-01-08 10:35:00 16 /min [facility] BP Systolic 2017-12-19 08:21:00 133 mm[Hg] Location: LUE; Positi on: Sitting [facility] BP Diastolic 2017-12-19 08:21:00 82 mm[Hg] Location: LUE; Positi on: Sitting [facility] Height 2017-12-19 08:21:00 67 [in_us] [facility] Weight 2017-12-19 08:21:00 198.0625 [lb_av] [facility] Body Mass Index Calculated 2017-12-19 08:21:00 31.02 kg/m2 [facility] Temperature 2017-12-19 08:21:00 97.3 [degF] Method: Temporal [facility] Respiration Rate 2017-12-19 08:21:00 16 /min [facility] Heart Rate 2017-12-19 08:21:00 72 /min [facility] BP Systolic 2017-12-09 11:06:00 133 mm[Hg] Location: LUE; Positi on: Sitting [facility] BP Diastolic 2017-12-09 11:06:00 75 mm[Hg] Location: LUE; Positi on: Sitting [facility] Height 2017-12-09 11:06:00 67 [in_us] [facility] Weight 2017-12-09 11:06:00 196.25 [lb_av] [facility] Body Mass Index Calculated 2017-12-09 11:06:00 30.74 kg/m2 [facility] Heart Rate 2017-12-09 11:06:00 77 /min Location: L Radial; [facility] BP Systolic 2017-11-20 07:58:00 132 mm[Hg] Location: LUE; Positi on: Sitting [facility] BP Diastolic 2017-11-20 07:58:00 66 mm[Hg] Location: LUE; Positi on: Sitting [facility] Height 2017-11-20 07:58:00 67 [in_us] Universi ty [facility] Weight 2017-11-20 07:58:00 194.5 [lb_av] [facility] Body Mass Index Calculated 2017-11-20 07:58:00 30.46 kg/m2 [facility] Temperature 2017-11-20 07:58:00 97.7 [degF] Method: [facility] Res[facility] Rate 2017-11-20 07:58:00 16 /min [facility] Heart Rate 2017-11-20 07:58:00 62 /min Universi [facility] BP Systolic 2017-10-30 08:35:00 147 mm[Hg] [facility] BP Diastolic 2017-10-30 08:35:00 72 mm[Hg] [facility] Heart Rate 2017-10-30 08:35:00 75 /min [facility] BP Systolic 2017-10-30 08:32:00 143 mm[Hg] Location: LUE; Positi on: Sitting [facility] BP Diastolic 2017-10-30 08:32:00 72 mm[Hg] Location: LUE; Positi on: Sitting [facility] Heart Rate 2017-10-30 08:32:00 72 /min [facility] Height 2017-10-30 08:32:00 67 [in_us] [facility] Weight 2017-10-30 08:32:00 191.5625 [lb_av] [facility] Body Mass Index Calculated 2017-10-30 08:32:00 30 kg/m2 [facility] Temperature 2017-10-30 08:32:00 97.1 [degF] Method: Temporal [facility] Respiration Rate 2017-10-30 08:32:00 16 /min [facility] BP Systolic 2017-10-28 10:38:00 145 mm[Hg] Location: LUE; Positi on: Sitting [facility] BP Diastolic 2017-10-28 10:38:00 71 mm[Hg] Location: LUE; Positi on: Sitting [facility] Heart Rate 2017-10-28 10:38:00 77 /min [facility] Height 2017-10-28 10:38:00 67 [in_us] [facility] Weight 2017-10-28 10:38:00 191.5 [lb_av] [facility] Body Mass Index Calculated 2017-10-28 10:38:00 29.99 kg/m2 [facility] Respiration Rate 2017-10-28 10:38:00 16 /min [facility] Procedures Procedure Date / Time Performed Performing Clinician Sourc e [QL] HEMOGLOBIN A1c 2019-10-14 00:00:00 [facility] [QL] MICROALBUMIN, RANDOM URINE (W/CREATININE) 2019-10-14 00:00: 00 [facility] [Q] LIPID PANEL WITH REFLEX TO DIRECT LDL 2019-10-14 00:00:00 [facility] [QL] CMP W/EGFR 2019-10-14 00:00:00 [facility] [QL] CBC (INCLUDES DIFF/PLT) 2019-10-14 00:00:00 [facility] [QL] FERRITIN 2019-10-14 00:00:00 [facility] [QL] IRON AND TOTAL IRON BINDING CAPACITY 2019-10-14 00:00:00 [facility] [QL] CREATINE KINASE, TOTAL 2019-10-14 00:00:00 [facility] [N] Nuclear Test-Adenosine Stress Perfusion 2019-08-06 00:00:00 [facility] [QLH] CBC (INCLUDES DIFF/PLT) 2019-03-30 00:00:00 [facility] [QLH] FERRITIN 2019-03-30 00:00:00 [facility] [QLH] IRON AND TOTAL IRON BINDING CAPACITY 2019-03-30 00:00:00 [facility] [QLH] VITAMIN B12 2019-03-30 00:00:00 [facility] [QLH] CMP W/EGFR 2019-03-30 00:00:00 [facility] [QLH] HEMOGLOBIN A1c 2019-03-30 00:00:00 [facility] [QLH] CBC (INCLUDES DIFF/PLT) 2019-01-13 00:00:00 [facility] [QLH] FERRITIN 2019-01-13 00:00:00 [facility] [QLH] IRON AND TOTAL IRON BINDING CAPACITY 2019-01-13 00:00:00 [facility] [QLH] VITAMIN B12 2019-01-13 00:00:00 [facility] [QLH] VITAMIN B12 2018-11-19 00:00:00 [facility] [QL] TSH, 3RD GENERATION W/REFLEX TO FT4 2018-11-19 00:00:00 [facility] [QL] CBC (INCLUDES DIFF/PLT) 2018-11-19 00:00:00 [facility] [QLH] FERRITIN 2018-11-19 00:00:00 [facility] [QLH] IRON AND TOTAL IRON BINDING CAPACITY 2018-11-19 00:00:00 [facility] [QL] CBC (INCLUDES DIFF/PLT) 2018-08-20 00:00:00 [facility] [QL] IRON AND TOTAL IRON BINDING CAPACITY 2018-08-20 00:00:00 [facility] [QLH] FERRITIN 2018-08-20 00:00:00 [facility] [QLH] HEMOGLOBIN A1c 2018-08-20 00:00:00 [facility] [QL] CMP W/EGFR 2018-08-20 00:00:00 [facility] [QL] LIPID PANEL 2018-08-10 00:00:00 [facility] [QLH] HEMOGLOBIN A1c 2018-06-18 00:00:00 [facility] [QLH] CMP W/EGFR 2018-06-18 00:00:00 [facility] [N] 2D Echo complete, with Doppler [id number] 2018-06-12 00:00:00 [facility] [QLH] CBC (INCLUDES DIFF/PLT) 2018-05-20 00:00:00 [facility] [QLH] CBC (INCLUDES DIFF/PLT) 2018-05-19 00:00:00 [facility] Computed tomography of brain without radiopaque contrast 201 01-12-04 00:00:00 [facility] CBC (INCLUDES DIFF/PLT) 2018-04-27 00:00:00 [facility] [QLH] HEMOGLOBIN A1c 2018-03-19 00:00:00 [facility] [QLH] CMP W/EGFR 2018-03-19 00:00:00 [facility] [QLH] CBC (INCLUDES DIFF/PLT) 2018-03-19 00:00:00 [facility] [QLH] IRON AND TOTAL IRON BINDING CAPACITY 2018-03-19 00:00:00 [facility] [QLH] FERRITIN 2018-03-19 00:00:00 [facility] MA Bone Density [employer] [id number] 2018-03-19 00:00:00 [facility] Hearing Aid Eval-Binaural 2018-01-22 00:00[facility]00 [facility]N] 2D Echo complete, with Doppler [id number] 2018-01-16 00:00:00 [facility] [O] Basic Audiometry Screen 2018-01-08 00:00:00 [facility] [N] Cardiovascular Treadmill Stress Test 2017-12-09 00:00:00 [facility] [QLH] CBC (INCLUDES DIFF/PLT) 2017-11-20 00:00:00 [facility] [QLH] FERRITIN 2017-11-20 00:00:00 [facility] [QLH] IRON AND TOTAL IRON BINDING CAPACITY 2017-11-20 00:00:00 [facility] [QLH] HEMOGLOBIN A1c 2017-11-20 00:00:00 [facility] [Q] FECAL GLOBIN BY IMMUNOCHEM. (MEDICARE) 2017-10-30 00:00:00 [facility] History of Tonsillectomy With Adenoidectomy [facility] History of Cholecystectomy Unive [facility] History of Aortic valve replacement [facility] History of Permanent pacemaker insertion [facility] Plan of Care Planned Activity Planned Date Details Comments Source Future Scheduled Test 2019-10-17 00:00:00 [QL] HEMOGLOBIN A1 c [code = [QL] HEMOGLOBIN A1c] [facility] Future Scheduled Test 2019-10-17 00:00:00 [QL] MICROALBUMIN, RANDOM URINE (W/CREATININE) [code = 35560] [facility] Future Scheduled Test 2019-10-17 00:00:00 [Q] LIPID PANEL WI TH REFLEX TO DIRECT LDL [code = [Q] LIPID PANEL WITH REFLEX TO DIRECT LDL] [facility] Future Scheduled Test 2019-10-17 00:00:00 [QL] CMP W/EGFR [c ode = [QL] CMP W/EGFR] [facility] Future Scheduled Test 2019-10-17 00:00:00 [QL] CBC (INCLUDES DIFF/PLT) [code = [QL] CBC (INCLUDES DIFF/PLT)] [facility] Future Scheduled Test 2019-10-17 00:00:00 [QL] FERRITIN [code = [QL] FERRITIN] [facility] Scheduled Test 2019-10-17 00:00:00 [QL] IRON AND TOTA L IRON BINDING CAPACITY [code = [QL] IRON AND TOTAL IRON BINDING CAPACITY] [facility] Scheduled Test 2019-10-17 00:00:00 [QL] HEMOGLOBIN A1 c [code = [QL] HEMOGLOBIN A1c] [facility] Future Scheduled Test 2019-10-17 00:00:00 [QL] MICROALBUMIN, RANDOM URINE (W/CREATININE) [code = 46478] [facility] Future Scheduled Test 2019-10-17 00:00:00 [Q] LIPID PANEL WI TH REFLEX TO DIRECT LDL [code = [Q] LIPID PANEL WITH REFLEX TO DIRECT LDL] [facility] Scheduled Test 2019-10-17 00:00:00 [QL] CMP W/EGFR [c ode = [QL] CMP W/EGFR] [facility] Future Scheduled Test 2019-10-17 00:00:00 [QL] CBC (INCLUDES DIFF/PLT) [code = [QL] CBC (INCLUDES DIFF/PLT)] [facility] Future Scheduled Test 2019-10-17 00:00:00 [QL] FERRITIN [code = [QL] FERRITIN] [facility] Scheduled Test 2019-10-17 00:00:00 [QL] IRON AND TOTA L IRON BINDING CAPACITY [code = [QL] IRON AND TOTAL IRON BINDING CAPACITY] [facility] Scheduled Test 2019-10-17 00:00:00 [QL] HEMOGLOBIN A1 c [code = [QL] HEMOGLOBIN A1c] [facility] Future Scheduled Test 2019-10-17 00:00:00 [QL] MICROALBUMIN, RANDOM URINE (W/CREATININE) [code = 21783] [facility] Future Scheduled Test 2019-10-17 00:00:00 [Q] LIPID PANEL WI TH REFLEX TO DIRECT LDL [code = [Q] LIPID PANEL WITH REFLEX TO DIRECT LDL] [facility] Future Scheduled Test 2019-10-17 00:00:00 [QL] CMP W/EGFR [c ode = [QL] CMP W/EGFR] [facility] Future Scheduled Test 2019-10-17 00:00:00 [QL] CBC (INCLUDES DIFF/PLT) [code = [QL] CBC (INCLUDES DIFF/PLT)] [facility] Future Scheduled Test 2019-10-17 00:00:00 [QL] FERRITIN [code = [QL] FERRITIN] [facility] Future Scheduled Test 2019-10-17 00:00:00 [QL] IRON AND TOTA L IRON BINDING CAPACITY [code = [QL] IRON AND TOTAL IRON BINDING CAPACITY] [facility] Future Scheduled Test 2019-10-17 00:00:00 [QL] HEMOGLOBIN A1 c [code = [QL] HEMOGLOBIN A1c] [facility] Future Scheduled Test 2019-10-17 00:00:00 [QL] MICROALBUMIN, RANDOM URINE (W/CREATININE) [code = 60983] [facility] Future Scheduled Test 2019-10-17 00:00:00 [Q] LIPID PANEL WI TH REFLEX TO DIRECT LDL [code = [Q] LIPID PANEL WITH REFLEX TO DIRECT LDL] [facility] Future Scheduled Test 2019-10-17 00:00:00 [QL] CMP W/EGFR [c ode = [QL] CMP W/EGFR] [facility] Future Scheduled Test 2019-10-17 00:00:00 [QL] CBC (INCLUDES DIFF/PLT) [code = [QL] CBC (INCLUDES DIFF/PLT)] [facility] Future Scheduled Test 2019-10-17 00:00:00 [QL] FERRITIN [code = [QL] FERRITIN] [facility] Future Scheduled Test 2019-10-17 00:00:00 [QL] IRON AND TOTA L IRON BINDING CAPACITY [code = [QL] IRON AND TOTAL IRON BINDING CAPACITY] [facility] Diagnostic Test Pending 2019-03-15 00:00:00 [QLH] CBC (INCLU ROBIN DIFF/PLT) [code = [QLH] CBC (INCLUDES DIFF/PLT)] [facility] Diagnostic Test Pending 2019-03-15 00:00:00 [QLH] FERRITIN [ code = [QLH] FERRITIN] [facility] Diagnostic Test Pending 2019-03-15 00:00:00 [QLH] IRON AND T OTAL IRON BINDING CAPACITY [code = [QLH] IRON AND TOTAL IRON BINDING CAPACITY] [facility] Diagnostic Test Pending 2019-03-15 00:00:00 [QLH] VITAMIN B1 2 [code = [QLH] VITAMIN B12] [facility] Diagnostic Test Pending 2019-03-15 00:00:00 [QLH] CBC (INCLU ROBIN DIFF/PLT) [code = [QLH] CBC (INCLUDES DIFF/PLT)] [facility] Diagnostic Test Pending 2019-03-15 00:00:00 [QLH] FERRITIN [ code = [QLH] FERRITIN] [facility] Diagnostic Test Pending 2019-03-15 00:00:00 [QLH] IRON AND T OTAL IRON BINDING CAPACITY [code = [QLH] IRON AND TOTAL IRON BINDING CAPACITY] [facility] Diagnostic Test Pending 2019-03-15 00:00:00 [QLH] VITAMIN B1 2 [code = [QLH] VITAMIN B12] [facility] Diagnostic Test Pending 2019-02-01 00:00:00 [N] 2D Echo comp lete, with Doppler [id number] [code = [N] 2D Echo complete, with Doppler [id number]] [facility] Diagnostic Test Pending 2019-02-01 00:00:00 [N] 2D Echo comp lete, with Doppler [id number] [code = [N] 2D Echo complete, with Doppler [id number]] [facility] Diagnostic Test Pending 2018-11-11 00:00:00 [QLH] CBC (INCLU ROBIN DIFF/PLT) [code = [QLH] CBC (INCLUDES DIFF/PLT)] [facility] Diagnostic Test Pending 2018-11-11 00:00:00 [QLH] IRON AND T OTAL IRON BINDING CAPACITY [code = [QLH] IRON AND TOTAL IRON BINDING CAPACITY] [facility] Diagnostic Test Pending 2018-11-11 00:00:00 [QLH] FERRITIN [ code = [QLH] FERRITIN] [facility] Diagnostic Test Pending 2018-11-11 00:00:00 [QLH] HEMOGLOBIN A1c [code = [QLH] HEMOGLOBIN A1c] [facility] Diagnostic Test Pending 2018-11-11 00:00:00 [QLH] CMP W/EGFR [code = [QLH] CMP W/EGFR] [facility] Diagnostic Test Pending 2018-07-21 00:00:00 [QLH] CBC (INCLU ROBIN DIFF/PLT) [code = [QLH] CBC (INCLUDES DIFF/PLT)] [facility] Diagnostic Test Pending 2018-07-21 00:00:00 [QLH] HEMOGLOBIN A1c [code = [QLH] HEMOGLOBIN A1c] [facility] Diagnostic Test Pending 2018-07-21 00:00:00 [QLH] CMP W/EGFR [code = [QLH] CMP W/EGFR] [facility] Diagnostic Test Pending 2018-06-02 00:00:00 [N] Cardiovascul ar Treadmill Stress Test [code = [N] Cardiovascular Treadmill Stress Test] [facility] Diagnostic Test Pending 2018-06-02 00:00:00 [N] Cardiovascul ar Treadmill Stress Test [code = [N] Cardiovascular Treadmill Stress Test] [facility] Diagnostic Test Pending 2018-05-17 00:00:00 [QLH] CBC (INCLU ROBIN DIFF/PLT) [code = [QLH] CBC (INCLUDES DIFF/PLT)] [facility] Diagnostic Test Pending 2018-01-16 00:00:00 [N] 2D Echo comp lete, with Doppler [id number] [code = [N] 2D Echo complete, with Doppler [id number]] [facility] Diagnostic Test Pending 2018-01-08 00:00:00 [O] Basic Audiom etry Screen [code = [O] Basic Audiometry Screen] [facility] Diagnostic Test Pending 2017-12-01 00:00:00 [QLH] CBC (INCLU ROBIN DIFF/PLT) [code = [QLH] CBC (INCLUDES DIFF/PLT)] [facility] Diagnostic Test Pending 2017-12-01 00:00:00 [QLH] FERRITIN [ code = [QLH] FERRITIN] [facility] Diagnostic Test Pending 2017-12-01 00:00:00 [QLH] IRON AND T OTAL IRON BINDING CAPACITY [code = [QLH] IRON AND TOTAL IRON BINDING CAPACITY] [facility] Diagnostic Test Pending 2017-12-01 00:00:00 [QLH] HEMOGLOBIN A1c [code = [QLH] HEMOGLOBIN A1c] [facility] Diagnostic Test Pending 2017-12-01 00:00:00 [QLH] CBC (INCLU ROBIN DIFF/PLT) [code = [QLH] CBC (INCLUDES DIFF/PLT)] [facility] Diagnostic Test Pending 2017-12-01 00:00:00 [QLH] FERRITIN [ code = [QLH] FERRITIN] [facility] Diagnostic Test Pending 2017-12-01 00:00:00 [QLH] IRON AND T OTAL IRON BINDING CAPACITY [code = [QLH] IRON AND TOTAL IRON BINDING CAPACITY] [facility] Diagnostic Test Pending 2017-12-01 00:00:00 [QLH] HEMOGLOBIN A1c [code = [QLH] HEMOGLOBIN A1c] [facility] Diagnostic Test Pending 2017-12-01 00:00:00 [QLH] CBC (INCLU ROBIN DIFF/PLT) [code = [QLH] CBC (INCLUDES DIFF/PLT)] [facility] Diagnostic Test Pending 2017-12-01 00:00:00 [QLH] FERRITIN [ code = [QLH] FERRITIN] [facility] Diagnostic Test Pending 2017-12-01 00:00:00 [QLH] IRON AND T OTAL IRON BINDING CAPACITY [code = [QLH] IRON AND TOTAL IRON BINDING CAPACITY] [facility] Diagnostic Test Pending 2017-12-01 00:00:00 [QLH] HEMOGLOBIN A1c [code = [QLH] HEMOGLOBIN A1c] [facility] Future Scheduled Test 2013-09-30 14:47:30 Plan of Care [code = 1877 6-5] [facility] Scheduled Test 2013-09-21 16:02:22 Plan of Care [code = 1877 6-5] [facility] Scheduled Test 2013-09-16 14:33:27 Plan of Care [code = 1877 6-5] [facility] Scheduled Test 2013-07-29 15:17:42 Plan of Care [code = 1877 6-5] [facility] Scheduled Test 2013-07-24 19:45:36 Plan of Care [code = 1877 6-5] [facility] Scheduled Test 2013-06-21 18:31:24 Plan of Care [code = 1877 6-5] [facility] Scheduled Test 2013-05-24 14:33:34 Plan of Care [code = 1877 6-5] [facility] Scheduled Test 2013-05-13 19:18:08 Plan of Care [code = 1877 6-5] [facility] Scheduled Test 2013-05-12 22:33:46 Plan of Care [code = 1877 6-5] [facility] Scheduled Test 2013-05-02 14:31:24 Plan of Care [code = 1877 6-5] [facility] Scheduled Test 2013-04-20 14:40:17 Plan of Care [code = 1877 6-5] [facility] Scheduled Test 2013-04-18 22:45:23 Plan of Care [code = 1877 6-5] [facility] Scheduled Test 2013-04-17 04:00:13 Plan of Care [code = 1877 6-5] [facility] Appointment 2020-04-17 10:00:00 Tl MUELLER, [facility] Future Appointment 2020-03-10 09:00:00 Prachi ZULETA [facility] Encounters Start Date/Time End Date/Time Encounter Type Admission Type Attendi [facility] Care Department Encounter ID Source 2019-10-14 10:00:00 2019-10-14 10:00:00 Appointment; CROW EDWARDS P.A. SPOONER, JOSEPH, P.A. [facility] [id number] [facility] 2019-09-07 09:40:00 2019-09-07 09:40:00 Appointment; MERLYN RAYGOZA M.D. CHARITAKIS, KONSTANTINOS, M.D. [facility], [address] [id number] [facility] 2019-08-18 12:36:00 2019-08-18 12:36:00 Outpatient [facility] CAR [id number] [facility] 2019-08-10 15:00:00 2019-08-10 15:00:00 Appointment; MERLYN RAYGOZA M.D. CHARITAKIS, KONSTANTINOS, M.D. [facility], [address] [id number] [facility] 2019-08-10 08:45:00 2019-08-10 08:45:00 Appointment; [place]-MS, N UCLEAR [facility], NUCLEAR [facility] [id number] [facility] 2019-08-06 10:20:00 2019-08-06 10:20:00 Appointment; MERLYN RAYGOZA M.D. CHARITAKIS, KONSTANTINOS, M.D. [facility], [address] [id number] [facility] 2019-07-19 15:45:00 2019-07-19 15:45:00 Appointment; GLADIS ORTEGA M.D. JAYSWAL, MALAY, M.D. [facility] [id number] [facility] 2019-03-30 08:15:00 2019-03-30 08:15:00 Appointment; CROW EDWARDS P.A. SPOONER, JOSEPH PYanciAYanci [facility] [id number] [facility] 2019-02-05 11:20:00 2019-02-05 11:20:00 Appointment; MERLYN RAYGOZA M.D. CHARITAKIS, KONSTANTINOS, M.D. [facility], [address] [id number] [facility] 2019-02-05 10:00:00 2019-02-05 10:00:00 Appointment; [place]-MS, E CHO [facility]-MS, ECHO [facility] [id number] [facility] 2019-01-11 11:30:00 2019-01-11 11:30:00 Appointment; CROW EDWARDS P.A. SPOONER, JOSEPH PYanciAYanci [facility] [id number] [facility] 2018-11-19 14:15:00 2018-11-19 14:15:00 Appointment; CROW EDWARDS P.A. SPOONER, JOSEPH, P.A. UTP [facility] [id number] [facility] 2018-08-20 08:45:00 2018-08-20 08:45:00 Appointment; CROW EDWARDS P.A. SPOONER, JOSEPH, P.A. UTP [facility] [id number] [facility] 2018-06-18 11:30:00 2018-06-18 11:30:00 Appointment; CROW EDWARDS P.A. SPOONER, JOSEPH, P.A. UTP [facility] [id number] [facility] 2018-06-12 10:00:00 2018-06-12 10:00:00 Appointment; MERLYN RAYGOZA M.D. CHARITAKIS, KONSTANTINOS, M.D. [facility] [address] [id number] [facility] 2018-06-12 09:00:00 2018-06-12 09:00:00 Appointment; [facility] S CLAUDIA [facility], STRESS [facility] [id number] [facility] 2018-05-19 11:30:00 2018-05-19 11:30:00 Appointment; CROW EDWARDS P.A. SPOONER, JOSEPH, P.A. UTP [facility] [id number] [facility] 2018-05-05 18:42:00 2018-05-06 01:09:00 Departed Emergency Room 1 BRITTANYJAIHALEIGHKAMARI [facility] [id number] [facility] 2018-04-21 10:45:00 2018-04-21 10:45:00 Appointment; CROW EDWARDS P.A. SPOONER, JOSEPH, P.A. UTP [facility] [id number] [facility] 2018-03-20 08:15:00 2018-03-20 08:15:00 Appointment; CROW EDWARDS P.A. SPOONER, JOSEPH, P.A. [facility] [id number] [facility] 2018-03-19 08:15:00 2018-03-19 08:15:00 Appointment; CROW EDWARDS P.A. SPOONER, JOSEPH, P.A. UTP [facility] [id number] [facility] 2018-03-19 08:15:00 2018-03-19 08:15:00 Appointment; CROW EDWARDS P.A. SPOONER, JOSEPH, P.A. [facility] [id number] [facility] 2018-02-24 12:20:00 2018-02-24 12:20:00 Appointment; MERLYN RAYGOZA M.D. CHARITAKIS, KONSTANTINOS, M.D. [facility] [address] [id number] [facility] 2018-02-24 11:00:00 2018-02-24 11:00:00 Appointment; VINHNAVI-MS, E CHO [facility], ECHO [facility] [id number] [facility] 2018-01-22 09:30:00 2018-01-22 09:30:00 Appointment; ERNESTO KING M.D. BYRD, MICHAEL, M.D. [facility] [id number] [facility] 2018-01-16 09:30:00 2018-01-16 09:30:00 Appointment; ROSANNE ORELLANA M.D. SHARMA, SAUMYA, M.D. [facility] [id number] [facility] 2018-01-12 09:00:00 2018-01-12 09:00:00 Appointment; TAMRA CAN KIMBERLY [facility] Otorhinolaryngology [facility] [id number] [facility] 2018-01-08 10:15:00 2018-01-08 10:15:00 Appointment; ERNESTO KING M.D. BYRD, MICHAEL, M.D. [facility] [id number] [facility] 2017-12-19 08:30:00 2017-12-19 08:30:00 Appointment; CROW EDWARDS P.A. SPOONER, JOSEPH, P.A. UTP [facility] [id number] [facility] 2017-12-16 09:15:00 2017-12-16 09:15:00 Appointment; LIZACOURTNEYDale BARBER VERONICA DE JESUSIrving [facility] UTP [id number] [facility] 2017-12-09 11:20:00 2017-12-09 11:20:00 Appointment; MERLYN RAYGOZA M.D. CHARITAKIS, KONSTANTINOS, M.D. [facility] [address] [id number] [facility] 2017-11-20 08:00:00 2017-11-20 08:00:00 Appointment; CROW EDWARDS P.A. SPOONER, JOSEPH, P.A. UTP [facility] [id number] [facility] 2017-11-04 09:15:00 2017-11-04 09:15:00 Appointment; WILLIS DE JESUSVERONICA TODDIrving [facility] UTP [id number] [facility] 2017-10-30 08:45:00 2017-10-30 08:45:00 Appointment; CROW EDWARDS P.A. SPOONER, JOSEPH, P.A. [facility] UTP [id number] [facility] 2017-10-28 10:20:00 2017-10-28 10:20:00 Appointment; MERLYN RAYGOZA M.D. CHARITAKIS, KONSTANTINOS, M.D. [facility] UTP [id number] [facility] 2017-09-08 09:00:00 2017-09-08 09:00:00 Appointment; MIR CASTILLO M .D. BAI, KRISTY, M.D. [facility] UTP [id number] [facility] 2017-08-20 13:20:00 2017-08-20 13:20:00 Appointment; MERLYN RAYGOZA M.D. CHARITAKIS, KONSTANTINOS, M.D. [facility] UTP [id number] [facility] 2017-08-07 13:00:00 2017-08-07 13:00:00 Appointment; MIR CASTILLO M .D. BAI, KRISTY, M.D. [facility] UTP [id number] [facility] 2017-08-01 15:00:00 2017-08-01 15:00:00 Appointment; REA RICHARDSON M.D. [place], HUBERT, M.D. UTP UTP [id number] [facility] 2017-07-23 18:20:00 2017-07-23 18:20:00 Appointment; MERLYN RAYGOZA M.D. CHARITAKIS, KONSTANTINOS, M.D. UTP UTP [id number] [facility] 2017-07-18 14:30:00 2017-07-18 14:30:00 Appointment; ROSANNE ORELLANA M.D. SHARMA, SAUMYA, M.D. [facility] UTP [id number] [facility] 2017-07-17 13:30:00 2017-07-17 13:30:00 Appointment; HU HUDDLESTON NP TEJADA-FOSTER, NORMA, NP [facility] UTP [id number] [facility] 2017-07-16 12:15:00 2017-07-16 12:15:00 Appointment; DOTTIE RODRIGUEZ M.D. NGUYEN, TUYEN, M.D. [facility] Cardiothoracic and Vascular Surgery [id number] [facility] 2017-06-11 09:00:00 2017-06-11 09:00:00 Appointment; MIR CASTILLO M .D. BAI, KRISTY, M.D. [facility] UTP [id number] [facility] 2017-06-10 13:00:00 2017-06-10 13:00:00 Appointment; MERLYN RAYGOZA M.D. CHARITAKIS, KONSTANTINOS, M.D. [facility] UTP [id number] [facility] 2017-06-10 10:00:00 2017-06-10 10:00:00 Appointment; Reba JACKSON ECHO UTP UTP [id number] [facility] 2017-06-10 08:15:00 2017-06-10 08:15:00 Appointment; [place]-MS, N UCLEAR [place]-MS, NUCLEAR UTP UTP [id number] [facility] 2017-06-06 10:00:00 2017-06-06 10:00:00 Appointment; YANCY TOLEDO M.D. TRAHAN, MICHAEL, M.D. UTP UTP [id number] [facility] 2017 10:20:00 2017 10:20:00 Appointment; MERLYN RAYGOZA M.D. CHARITAKIS, KONSTANTINOS, M.D. UTP UTP [id number] [facility] 2017-05-28 13:15:00 2017-05-28 13:15:00 Appointment; MIR CASTILLO M .D. BAI, KRISTY, M.D. UTP UTP [id number] [facility] 2016-04-27 12:15:00 2016-04-27 12:15:00 Appointment; REA RICHARDSON M.D. [place], HUBERT, M.D. UTP UTP [id number] [facility] 2016-02-16 10:40:00 2016-02-16 10:40:00 Appointment; MERLYN RAYGOZA M.D. CHARITAKIS, KONSTANTINOS, M.D. UTP UTP [id number] [facility] 2015-11-23 13:00:00 2015-11-23 13:00:00 Appointment; PAULA STEVE M.D. HUANG, EDDIE, M.D. UTP UTP [id number] [facility] 2015-11-17 10:20:00 2015-11-17 10:20:00 Appointment; MERLYN RAYGOZA M.D. CHARITAKIS, KONSTANTINOS, M.D. UTP UTP [id number] [facility] 2015-11-10 08:00:00 2015-11-10 08:00:00 Appointment; MERLYN RAYGOZA M.D. CHARITAKIS, KONSTANTINOS, M.D. UTP UTP [id number] [facility] 2013-09-30 09:47:30 2013-09-30 09:47:30 Outpatient MHIE MHIE [id number] 2013-09-21 11:02:23 2013-09-21 11:02:22 Outpatient MHIE MHIE [id number] 2013-09-16 09:33:27 2013-09-16 09:33:27 Outpatient MHIE MHIE [id number] 2013-07-29 09:17:43 2013-07-29 09:17:42 Outpatient MHIE MHIE [id number] 2013-07-24 13:45:37 2013-07-24 13:45:36 Outpatient MHIE MHIE [id number] 2013-06-21 12:31:25 2013-06-21 12:31:24 Outpatient MHIE MHIE [id number] 2013-05-24 08:33:35 2013-05-24 08:33:34 Outpatient MHIE MHIE [id number] 2013-05-13 13:18:09 2013-05-13 13:18:08 Outpatient MHIE MHIE [id number] 2013-05-12 16:33:47 2013-05-12 16:33:46 Outpatient MHIE MHIE [id number] 2013-05-02 08:31:25 2013-05-02 08:31:24 Outpatient MHIE MHIE [id number] 2013-04-20 08:40:18 2013-04-20 08:40:17 Outpatient MHIE MHIE [id number] 2013-04-18 16:45:23 2013-04-18 16:45:23 Outpatient MHIE MHIE [id number] 2013-04-16 22:00:14 2013-04-16 22:00:13 Outpatient MHIE MHIE [id number] 2013-04-15 11:48:12 2013-04-15 11:48:12 Outpatient MHIE MHIE [id number] Results Test Description Test Time Test Comments Results Result Comments Source CHEST SINGLE (PORTABLE) 2019-11-12 00:39:00 [place] [address] Patient Name: JAQUI JARVIS MR #: [id number] : 1945 Age/Sex: 74/M Req #: [id number] Adm Physician: Ordered by: ERNESTO JUAREZ MD Report #: [id number] Location: ER Room/Bed: Procedure: [id number] DX/CHEST SINGLE (PORTABLE) Exam Date: 11/11/19 Exam Time: 2329 REPORT STATUS: Signed EXAMINATION: CHEST SINGLE (PORTABLE) INDICATION: Y FEVER 20191111 Y COMPARISON: None FINDINGS: AP view TUBES and LINES: None. LUNGS: Lungs are well inflated. There is no evidence of pneumonia or pulmonary edema. Minimal right basilar subsegmental atelectasis. PLEURA: No pleural effusion or pneumothorax. HEART AND MEDIASTINUM: The cardiomediastinal silhouette is unremarkable. BONES AND SOFT TISSUES: No acute osseous lesion. Medial mid chest plate and screw construct of rib. Soft tissues are unremarkable. UPPER ABDOMEN: No free air under the diaphragm. IMPRESSION: No acute thoracic abnormality. Signed by: Dr. Ken Scanlon MD on 11/12/2019 12:40 AM Dictated By: KEN SCANLON MD Transcribed By: RENETTA on 11/12/1939 COPY TO: ERNESTO JUAREZ MD CT ABDOMEN/PELVIS W 2019-11-12 00:27:00 [place] [address] Patient Name: JAQUI JARVIS MR #: [id number] : 1945 Age/Sex: 74/M Req #: [id number] Adm Physician: Ordered by: ERNESTO JUAREZ MD Report #: [id number] Location: ER Room/Bed: Procedure: [id number] CT/CT ABDOMEN/PELVIS W Exam Date: 11/11/19 Exam Time: 2329 REPORT STATUS: Signed EXAM: CT Abdomen and Pelvis without contrast INDICATION: Y FEVER DIARRHEA, BLACK STOOL 20191111 Y COMPARISON: None. TECHNIQUE: Abdomen and pelvis were scanned utilizing a multidetector helical scanner from the lung base to the pubic symphysis without administration of IV contrast. Coronal and sagittal reformations were obtained. Dose modulation, iterative reconstruction, and/or weight based adjustment of the mA/kV was utilized to reduce the radiation dose to as low as reasonably achievable. Routine protocol was performed. IV CONTRAST: None ORAL CONTRAST: None COMPLICATIONS: None RADIATION DOSE: Total DLP: 822.98 mGy*cm Estimated effective dose: (DLP x 0.015 x size factor) mSv CTDIvol has been reviewed. It is below the limits set by the Radiation Protocol Committee (RPC). FINDINGS: LINES and TUBES: None. LOWER THORAX: Partially seen severe atherosclerotic calcification of coronary arteries, mitral valve, and aortic valve. Mild right dependent atelectasis. HEPATOBILIARY: Hepatic steatosis. Otherwise, unenhanced liver is unremarkable. No biliary ductal dilation. GALLBLADDER: Surgically absent. SPLEEN: No splenomegaly. PANCREAS: No focal masses or ductal dilatation. ADRENALS: No adrenal nodules KIDNEYS/URETERS: Kidneys enhance symmetrically. No hydronephrosis. Limited for evaluation of renal parenchyma without intravenous contrast. Bilateral nonspecific perinephric fat stranding. No stones. GI TRACT: No abnormal distention, wall thickening, or evidence of bowel obstructi on. Few scattered colonic diverticula without evidence of diverticulitis. Appendix is normal. PELVIC ORGANS/BLADDER: Enlarged prostate. Bladder wall thickening. LYMPH NODES: No lymphadenopathy. VESSELS: Unremarkable. PERITONEUM / RETROPERITONEUM: No free air or fluid. BONES: Degenerative changes of lower lumbar spine. SOFT TISSUES: Unremarkable. IMPRESSION: 1. No definite evidence of acute inflammatory process in the abdomen/pelvis, considering limitations of unenhanced study. 2. Hepatic steatosis. 3. Enlarged prostate with bladder wall thickening, which is probably due to chronic outflow obstruction. Signed by: Dr. Ken Scanlon MD on 11/12/2019 12:38 AM Dictated By: KEN SCANLON MD Transcribed By: RENETTA on 11/12/1937 COPY TO: ERNESTO JUAREZ MD [Q] LIPID PANEL WITH REFLEX TO DIRECT [...] Lipidol. 2015;9:129-169. LDL-CHOLESTEROL; Normal (test code = 01225-4) 31 {MG/DL NATALIA} N Reference range: <100 Desirable range <100 mg/dL for primary prevention; <70 mg/dL for patients with CHD or diabetic patients with > or = 2 CHD risk factors. LDL-C is now calculated using the Paulino-Lan calculation, which is a validated novel method providing better accuracy than the Friedewald equation in the estimation of LDL-C. Paulino SS et al. JACQUI. 2013;310(19): 6962-9493 (http ://education.[employer]erve/faq/ILK142) CHOL/HDLC RATIO (test code = CHOL/HDLC RATIO) 2.5 {CALC} <5.0 N NON HDL CHOLESTEROL (test code = NON HDL CHOLESTEROL) 58 {MG/DL CA L} <130 N For patients with diabetes plus 1 major ASCVD risk factor, treating to a non-HDL-C goal of <100 mg/dL (LDL-C of <70 mg/dL) is considered a therapeutic option. [facility][QL] MICROALBUMIN, RANDOM URINE (W/CREATININE) 2019-10-22 [...] a patient to bewithin a diagnostic category. [facility][QL] IRON AND TOTAL IRON BINDING CAPACITY 2019-10-22 09:07:00* Test Item Value Reference Range Interpretation Comments IRON, TOTAL (test code = IRON, TOTAL) 46 {mcg/dl} 50-180 IRON BINDING CAPACITY (test code = IRON BINDING CAPACITY) 37 9 {mcg/dL ca} 250-425 N % SATURATION (test code = % SATURATION) 12 {% CALC} 20-48 [facility][QL] CMP [id number] 09:07:00* Test Item Value Reference Range Interpretation [...] is approximately 13% higher for peopleidentified as -Lebanese. eGFR NON- (test code = eGFR NON-DONNELL N GHANAIAN) 85 {ML/MIN/1.7} > OR = 60 N [...] N BILIRUBIN, TOTAL; Normal (test code = 49718-2) 1.1 mg/dl 0.2-1.2 N ALKALINE PHSPHATASE (test code = ALKALINE PHSPHATASE) 58 u/l 35-144 N AST; Normal (test code = 1916-6) 22 u/l 10-35 N ALT; Normal (test code = 1742-6) 31 u/l 9-46 N [facility][QL] CBC (INCLUDES DIFF/PLT)2019-10-22 09:07:00* Test Item Value Reference Range Interpretation Comments WHITE BLOOD CELL COUNT (test code = WHITE BLOOD CELL COUNT) 7.6 {Thousand/u} 3.8-10.8 N RED BLOOD CELL COUNT (test code = RED BLOOD CELL COUNT) 4.55 {Million/uL} 4.20-5.80 N HEMAGLOBIN; Below Low Threshold (test code = 82900-4) 12.9 g/dl 13.2-17.1 HEMATOCRIT; Normal (test code = 4544-3) 39.9 % 38.5-50.0 N MCV; Normal (test code = 787-2) 87.7 fL 80.0-100.0 N MCHC; Normal (test code = 55282-7) 32.3 g/dl 32.0-36.0 N RDW; Normal (test code = 788-0) 13.7 % 11.0-15.0 N PLATELET COUNT; Normal (test code = 777-3) 166 {Thousand/u} 140-400 N MPV; Normal (test code = 03268-0) 11.8 fL 7.5-12.5 N ABSOLUTE NEUTROPHILS (test code = ABSOLUTE NEUTROPHILS) 5480 {cells/uL} 4669-4320 N ABSOLUTE LYMPHOCYTES (test code = ABSOLUTE [...] % N MONOCYTES; Normal (test code = 73318-0) 8.0 % N EOSINOPHILS; Normal (test code = 47574-8) 1.7 % N BASOPHILS; Normal (test code = 04438-2) 0.4 % N [facility][QL] [id number] 09:07:00* Test Item Value Reference Range Interpretation Comments FERRITIN (test code = FERRITIN) 9 ng/ml 24-380 [facility][QL] HEMOGLOBIN [id number] 09:07:00* Test Item Value Reference Range Interpretation Comments HEMOGLOBIN A1c; Above High Threshold (test code = 4548-4) 7.1 {% of total} <5.7 For someone without known diabetes, a he moglobin H7ukzups of 6.5% or greater indicates that they [...] A1c for diagnosis of diabetes for children. [facility][O] Hemoglobin A1c (in office)2019-07-19 16:05:28 * Test Item Value Reference Range Interpretation Comments HEMOGLOBIN A1c (test code = 4548-4) 6.8% [facility] Chest 2 views [id number] 08:52:00EXAM: XR CHEST 2 VIEWSDATE: 03/30/2019 8:52 [...] 09:24Electronically Signed by: Mando Mcrae MD 03/30/1909:27[facility]] Influenza A and B, Rapid Method (In Office)2019-03-30 08:44:00* Test Item Value Reference Range Interpretation Comments INFLUENZA A & B Rapid (test code = INFLUENZA A & B Rapid) neg N [facility][O] Streptococcus Test Rapid (In Office)2019-03-30 08:43:00* Test Item Value Reference Range Interpretation Comments Group A Strep Screen; Normal (test code = 71261-3) neg N [facility]] IRON AND TOTAL IRON BINDING CAPACITY 2019-01-11 11:58:00* Test Item Value Reference Range Interpretation Comments IRON, TOTAL (test code = IRON, TOTAL) 65 {mcg/dl} 50-180 N IRON BINDING CAPACITY (test code = IRON BINDING CAPACITY) 37 8 {mcg/dL ca} 250-425 N % SATURATION (test code = % SATURATION) 17 {% CALC} 20-48 [facility]] CBC (INCLUDES DIFF/PLT)2019-01-11 11:58:00* Test Item Value Reference Range Interpretation Comments WHITE BLOOD CELL COUNT (test code = WHITE BLOOD CELL COUNT) 6.3 {Thousand/u} 3.8-10.8 N RED BLOOD CELL COUNT (test code = RED BLOOD CELL COUNT) 4.39 {Million/uL} 4.20-5.80 N HEMAGLOBIN; Below Low Threshold (test code = 91735-2) 12.5 g/dl 13.2-17.1 HEMATOCRIT; Below Low Threshold (test code = 4544-3) 38.2 % 3 8.5-50.0 MCV; Normal (test code = 787-2) 87.0 fL 80.0-100.0 N MCHC; Normal (test code = 19375-0) 32.7 g/dl 32.0-36.0 N RDW; Normal (test code = 788-0) 13.9 % 11.0-15.0 N PLATELET COUNT; Normal (test code = 777-3) 147 {Thousand/u} 140-400 N MPV; Normal (test code = 00161-1) 11.7 fL 7.5-12.5 N ABSOLUTE NEUTROPHILS (test code = ABSOLUTE NEUTROPHILS) 4442 {cells/uL} 1224-8281 N ABSOLUTE LYMPHOCYTES (test code = ABSOLUTE [...] % N MONOCYTES; Normal (test code = 34962-6) 8.2 % N EOSINOPHILS; Normal (test code = 04880-8) 2.5 % N BASOPHILS; Normal (test code = 94270-0) 0.8 % N [facility]] [id number] 11:58:00* Test Item Value Reference Range Interpretation Comments FERRITIN (test code = FERRITIN) 12 ng/ml 24-380 [facility]] VITAMIN [id number] 11:58:00* Test Item Value Reference Range Interpretation Comments VITAMIN B12 (test code = VITAMIN B12) 308 pg/ml 200-1100 N Please Note: Although the reference range for [id number] is 200-1100 pg/mL, it has been reported that between5 and 10% of patients with values between 200 and 400pg/mL may experience neuropsychiatric and hematologicabnormalities due to occult B12 deficiency; less than 1%of patients with values above 400 pg/mL will have symptoms. [facility]] TSH, 3RD GENERATION W/REFLEX TO FT4 2019-01-11 11:58:00* Test Item Value Reference Range Interpretation Comments TSH, 3RD GENERATION W/REFLEX TO FT4 (jose t code = TSH, 3RD GENERATION W/REFLEX TO FT4) 2.12 {MIU/L} 0.40-4.50 N [facility][O] Hemoglobin A1c (in office)2018-11-19 14:06:00 * Test Item Value Reference Range Interpretation Comments HEMOGLOBIN A1c; Abnormal (test code = 4548-4) 7.0 A [facility]] LIPID [id number] 08:23:00* Test Item Value Reference Range Interpretation Comments CHOLESTEROL, TOTAL; Normal (test code = 2093-3) 101 mg/dl <200 N HDL CHOLESTEROL; Below Low Threshold (test code = 2085-9) 39 mg/dl >40 TRIGLYCERIDES; Above High Threshold (test code = 2571-8) 182 mg/dl <150 LDL-CHOLESTEROL; Normal (test code = 28036-7) 36 {MG/DL NATALIA} N Reference range: <100 Desirable range <100 mg/dL for primary prevention; <70 mg/dL for patients with CHD or diabetic patients with > or = 2 CHD risk factors. LDL-C is now calculated using the Paulino-Lan calculation, which is a validated novel method providing better accuracy than the Friedewald equation in the estimation of LDL-C. Paulino SS et al. JACQUI. 2013;310(68): 3812-1358 (http ://education.[employer]/faq/YRW557) CHOL/HDLC RATIO (test code = CHOL/HDLC RATIO) 2.6 {CALC} <5.0 N NON HDL CHOLESTEROL (test code = NON HDL CHOLESTEROL) 62 {MG/DL CA L} <130 N For patients with diabetes plus 1 major ASCVD risk factor, treating to a non-HDL-C goal of <100 mg/dL (LDL-C of <70 mg/dL) is considered a therapeutic option. [facility]] CMP [id number] 08:23:00* Test Item Value Reference Range Interpretation [...] is approximately 13% higher for peopleidentified as -Lebanese. eGFR NON- (test code = eGFR NON-DONNELL N GHANAIAN) 92 {ML/MIN/1.7} > OR = 60 N [...] N BILIRUBIN, TOTAL; Normal (test code = 90706-4) 1.1 mg/dl 0.2-1.2 N ALKALINE PHSPHATASE (test code = ALKALINE PHSPHATASE) 64 u/l 40-115 N AST; Normal (test code = 1916-6) 28 u/l 10-35 N ALT; Normal (test code = 1742-6) 40 u/l 9-46 N [facility] CBC (INCLUDES DIFF/PLT)2018-08-11 08:23:00* Test Item Value Reference Range Interpretation Comments WHITE BLOOD CELL COUNT (test code = WHITE BLOOD CELL COUNT) 6.1 {Thousand/u} 3.8-10.8 N RED BLOOD CELL COUNT (test code = RED BLOOD CELL COUNT) 4.54 {Million/uL} 4.20-5.80 N HEMAGLOBIN; Below Low Threshold (test code = 84144-3) 13.1 g/dl 13.2-17.1 HEMATOCRIT; Normal (test code = 4544-3) 39.9 % 38.5-50.0 N MCV; Normal (test code = 787-2) 87.9 fL 80.0-100.0 N MCHC; Normal (test code = 87672-8) 32.8 g/dl 32.0-36.0 N RDW; Normal (test code = 788-0) 13.1 % 11.0-15.0 N PLATELET COUNT; Below Low Threshold (test code = 777-3) 137 {Thousand/u} 140-400 MPV; Normal (test code = 05657-5) 11.8 fL 7.5-12.5 N ABSOLUTE NEUTROPHILS (test code = ABSOLUTE NEUTROPHILS) 4093 {cells/uL} 8482-3610 N ABSOLUTE LYMPHOCYTES (test code = ABSOLUTE [...] % N MONOCYTES; Normal (test code = 68515-6) 9.0 % N EOSINOPHILS; Normal (test code = 28678-0) 3.3 % N BASOPHILS; Normal (test code = 62126-1) 0.7 % N [facility]] HEMOGLOBIN [id number] 08:23:00* Test Item Value Reference Range Interpretation Comments HEMOGLOBIN A1c; Above High Threshold (test code = 4548-4) 7.0 {% of total} <5.7 For someone without known diabetes, a he moglobin K8bfpzaf of 6.5% or greater indicates that they [...] A1c for diagnosis of diabetes for children. [facility]] CBC (INCLUDES DIFF/PLT)2018-05-19 12:18:00* Test Item Value Reference Range Interpretation Comments WHITE BLOOD CELL COUNT (test code = WHITE BLOOD CELL COUNT) 8.1 {Thousand/u} 3.8-10.8 N RED BLOOD CELL COUNT (test code = RED BLOOD CELL COUNT) 4.59 {Million/uL} 4.20-5.80 N HEMAGLOBIN; Normal (test code = 00578-6) 13.8 g/dl 13.2-17.1 N HEMATOCRIT; Normal (test code = 4544-3) 40.6 % 38.5-50.0 N MCV; Normal (test code = 787-2) 88.5 fL 80.0-100.0 N MCHC; Normal (test code = 28946-1) 34.0 g/dl 32.0-36.0 N RDW; Normal (test code = 788-0) 13.6 % 11.0-15.0 N PLATELET COUNT; Below Low Threshold (test code = 777-3) 133 {Thousand/u} 140-400 MPV; Normal (test code = 45510-9) 11.6 fL 7.5-12.5 N ABSOLUTE NEUTROPHILS (test code = ABSOLUTE NEUTROPHILS) 6091 {cells/uL} 8385-0604 N ABSOLUTE LYMPHOCYTES (test code = ABSOLUTE [...] % N MONOCYTES; Normal (test code = 21060-9) 7.4 % N EOSINOPHILS; Normal (test code = 24859-8) 1.2 % N BASOPHILS; Normal (test code = 87799-5) 0.6 % N [facility] [id number] 20:46:00 [facility] [address] [address] Patient Name: JAQUI JARVIS MR #: [id number] : 1945 [facility] 72[id number] Req #: [id number] Adm Physician: Ordered by: ERNESTO JUAREZ MD Report #: [id number] Location: ER Room/Bed: Procedure: 1204 -0026 CT/CT BRAIN WO [...] generalized cerebral volume loss. Signed by: Dr. Tammi Gayle M.D. on 05/05/2018 8:50 PM Dictated By: TAMMI GAYLE MD Electr onically Signed By: TAMMI GAYLE MD on 05/05/182049 Transcribed By: RENETTA on 05/05/182049 COPY TO: ERNESTO JUAREZ MD [[facility]] IRON AND TOTAL IRON BINDING [id number] 09:11:00* Test Item Value Reference Range Interpretation Comments IRON, TOTAL (test code = IRON, TOTAL) 136 {mcg/dl} 50-180 N IRON BINDING CAPACITY (test code = IRON BINDING CAPACITY) 34 5 {mcg/dL ca} 250-425 N % SATURATION (test code = % SATURATION) 39 {% CALC} 15-60 N [facility]] CMP [id number] 09:11:00* Test Item Value Reference Range Interpretation Comments GLUCOSE; Normal (test code = 1547-9) 133 mg/dl 65-139 N Non-fasting reference interval UREA NITROGEN (BUN) (test code = UREA NITROGEN (BUN)) 14 mg/dl 7-25 N CREATININE (test code = CREATININE) 0.84 mg/dl 0.70-1.18 N For patients >49 years of age, the reference limitfor Creatinine is approximately 13% higher for peopleidentified as -Lebanese. eGFR NON- (test code = eGFR NON-DONNELL N GHANAIAN) 87 {ML/MIN/1.7} > OR = 60 N [...] TOTAL; Above High Threshold (test code = 95230-6) 1.5 mg/dl 0.2-1.2 ALKALINE PHSPHATASE (test code = ALKALINE PHSPHATASE) 65 u/l 40-115 N AST; Normal (test code = 1916-6) 28 u/l 10-35 N ALT; Normal (test code = 1742-6) 40 u/l 9-46 N [facility] CBC (INCLUDES DIFF/PLT)2018-04-17 09:11:00* Test Item Value Reference Range Interpretation Comments WHITE BLOOD CELL COUNT (test code = WHITE BLOOD CELL COUNT) 6.3 {Thousand/u} 3.8-10.8 N RED BLOOD CELL COUNT (test code = RED BLOOD CELL COUNT) 4.68 {Million/uL} 4.20-5.80 N HEMAGLOBIN; Normal (test code = 11231-1) 13.9 g/dl 13.2-17.1 N HEMATOCRIT; Normal (test code = 4544-3) 41.1 % 38.5-50.0 N MCV; Normal (test code = 787-2) 87.8 fL 80.0-100.0 N MCHC; Normal (test code = 53046-3) 33.8 g/dl 32.0-36.0 N RDW; Normal (test code = 788-0) 13.3 % 11.0-15.0 N PLATELET COUNT; Below Low Threshold (test code = 777-3) 135 {Thousand/u} 140-400 MPV; Normal (test code = 77036-0) 11.7 fL 7.5-12.5 N ABSOLUTE NEUTROPHILS (test code = ABSOLUTE NEUTROPHILS) 4486 {cells/uL} 9226-7127 N ABSOLUTE LYMPHOCYTES (test code = ABSOLUTE [...] % N MONOCYTES; Normal (test code = 37795-9) 7.6 % N EOSINOPHILS; Normal (test code = 51504-9) 2.2 % N BASOPHILS; Normal (test code = 82120-2) 0.6 % N [facility]] [id number] 09:11:00* Test Item Value Reference Range Interpretation Comments FERRITIN (test code = FERRITIN) 24 ng/ml 20-380 N [facility]] HEMOGLOBIN [id number] 09:11:00* Test Item Value Reference Range Interpretation Comments HEMOGLOBIN A1c; Above High Threshold (test code = 4548-4) 7.5 {% of total} <5.7 For someone without known diabetes, a he moglobin Y6mmkimi of 6.5% or greater indicates that they [...] A1c for diagnosis of diabetes for children. [facility] Bone Density [employer] [id number] 10:57:00MALE BONE DENSITY ASSESSMENT: 03/27/2018CLINICAL DATA: Z13.820-Screening for osteoporosis S22.060A Closed wedgecompression fracture of eighth thoracic vertebra. Z13.820 Encounter ForScreening For Osteoporosis, S22.060a Wedge Compression Fracture Of T7-C8Dlspmqqp, Initial Encounter For Closed Fracture/Z13.820 Encounter ForScreening For Osteoporosis, S22.060a Wedge Compression Fracture Of T7-W7HxmugdybORHF FACTORS: Fractures with minimal trauma and previous [...] evaluation was performed 03/27/2018 on the AP L1-I4eydulh of spine using a Hologic unit. The BMD average for the exam is 1.168 g/cm2. This matches the World Health Organization's criteria for normal bonedensity and places the p atient within normal limits of fracture risk. IMPRESSION: BONE DENSITY WITHIN NO RMAL LIMITSPatient is at normal risk for fracture. This exam was interpreted [id number] for ANTHONY Helms. Benny Cabrera M.D., cm/penrad:03/27/2018 13:55:14 Medical Billing Clerk(s): Sherrell MASTERSON(R)(M), [facility]--Read by: Berlin Rendon MDDictated Date/time: 03/27/18 13:55Electronically Sign ed by: Berlin Rendon MD 03/27/1813:55FINAL REPORT [facility] thoracic frontal lateral [id number] 2018-03-19 09:14:00EXAM: XR THORACIC SPINE 2 VIEWSDATE: [...] anterior wedge compression deformity at T8 with outxmqbnjdaau68% height loss.--This report was dictated by a Shaping Machine Tender/Fellow. I have personallyreviewed the images aswell as the Resident's interpretation and agree with the findings.Read by: Ernesto Mejia MD Resident: Ernesto MejiaDDictated Date/time: 03/19/18 09:57Electronically Signed by: Colin Morillo MD 03/19/1810:22FINAL REPORT [facility] (Diabetic)2017-12-26 05:00:00* Test Item Value Reference Range Interpretation Comments Negative Diabetic Eye Screening (test code = Negative Diabetic Eye Screening) [id number] [facility] IRON AND TOTAL IRON BINDING CAPACITY 2017-12-19 08:49:00* Test Item Value Reference Range Interpretation Comments IRON, TOTAL (test code = IRON, TOTAL) 61 {mcg/dl} 50-180 N IRON BINDING CAPACITY (test code = IRON BINDING CAPACITY) 36 4 {mcg/dL ca} 250-425 N % SATURATION (test code = % SATURATION) 17 {% CALC} 15-60 N [facility] CBC (INCLUDES DIFF/PLT)2017-12-19 08:49:00* Test Item Value Reference Range Interpretation Comments WHITE BLOOD CELL COUNT (test code = WHITE BLOOD CELL COUNT) 5.9 {Thousand/u} 3.8-10.8 N RED BLOOD CELL COUNT (test code = RED BLOOD CELL COUNT) 4.72 {Million/uL} 4.20-5.80 N HEMAGLOBIN; Below Low Threshold (test code = 75982-8) 12.6 g/dl 13.2-17.1 HEMATOCRIT; Normal (test code = 4544-3) 38.8 % 38.5-50.0 N MCV; Normal (test code = 787-2) 82.2 fL 80.0-100.0 N MCHC; Normal (test code = 16338-7) 32.5 g/dl 32.0-36.0 N RDW; Above High Threshold (test code = 788-0) 18.8 % 11.0-15. 0 PLATELET COUNT; Normal (test code = 777-3) 147 {Thousand/u} 140-400 N MPV; Normal (test code = 72446-3) 11.3 fL 7.5-12.5 N ABSOLUTE NEUTROPHILS (test code = ABSOLUTE NEUTROPHILS) 4106 {cells/uL} 0049-2910 N ABSOLUTE LYMPHOCYTES (test code = ABSOLUTE [...] % N MONOCYTES; Normal (test code = 95089-6) 8.7 % N EOSINOPHILS; Normal (test code = 85822-9) 3.1 % N BASOPHILS; Normal (test code = 73108-5) 0.7 % N [facility] [id number] 08:49:00* Test Item Value Reference Range Interpretation Comments FERRITIN (test code = FERRITIN) 14 ng/ml 20-380 [facility] HEMOGLOBIN [id number] 08:49:00* Test Item Value Reference Range Interpretation Comments HEMOGLOBIN A1c; Above High Threshold (test code = 4548-4) 6.6 {% of total} <5.7 For someone without known diabetes, a he moglobin L0ggrnic of 6.5% or greater indicates that they [...] A1c for diagnosis of diabetes for children. [facility]] IRON AND TOTAL IRON BINDING CAPACITY 2017-10-31 10:55:00* Test Item Value Reference Range Interpretation Comments IRON, TOTAL (test code = IRON, TOTAL) 48 {mcg/dl} 50-180 IRON BINDING CAPACITY (test code = IRON BINDING CAPACITY) 35 2 {mcg/dL ca} 250-425 N % SATURATION (test code = % SATURATION) 14 {% CALC} 15-60 [facility]] CMP [id number] 10:55:00* Test Item Value Reference Range Interpretation Comments GLUCOSE; Normal (test code = 1547-9) 99 mg/dl 65-99 N Fasting reference interval UREA NITROGEN (BUN) (test code = UREA NITROGEN (BUN)) 14 mg/dl 7-25 N CREATININE (test code = CREATININE) 0.75 mg/dl 0.70-1.18 N For patients >49 years of age, the reference limitfor Creatinine is approximately 13% higher for peopleidentified as -Lebanese. eGFR NON- (test code = eGFR NON-DONNELL N GHANAIAN) 92 {ML/MIN/1.7} > OR = 60 N [...] N BILIRUBIN, TOTAL; Normal (test code = 35700-8) 0.9 mg/dl 0.2-1.2 N ALKALINE PHSPHATASE (test code = ALKALINE PHSPHATASE) 67 u/l 40-115 N AST; Normal (test code = 1916-6) 18 u/l 10-35 N ALT; Normal (test code = 1742-6) 19 u/l 9-46 N [facility] CBC (INCLUDES DIFF/PLT)2017-10-31 10:55:00* Test Item Value Reference Range Interpretation Comments WHITE BLOOD CELL COUNT (test code = WHITE BLOOD CELL COUNT) 5.4 {Thousand/u} 3.8-10.8 N RED BLOOD CELL COUNT (test code = RED BLOOD CELL COUNT) 4.75 {Million/uL} 4.20-5.80 N HEMOGLOBIN; Below Low Threshold (test code = 73697-6) 11.5 g/dl 13.2-17.1 HEMATOCRIT; Below Low Threshold (test code = 4544-3) 38.0 % 3 8.5-50.0 MCV; Normal (test code = 787-2) 80.0 fL 80.0-100.0 N MCHC; Below Low Threshold (test code = 62672-8) 30.3 g/dl 32.0-3 6.0 RDW; Above High Threshold (test code = 788-0) 21.5 % 11.0-15. 0 PLATELET COUNT; Below Low Threshold (test code = 777-3) 132 {Thousand/u} 140-400 ABSOLUTE NEUTROPHILS (test code = ABSOLUTE NEUTROPHILS) 3915 {cells/uL} 9880-7425 N ABSOLUTE LYMPHOCYTES (test code = ABSOLUTE [...] % N MONOCYTES; Normal (test code = 07147-4) 7.9 % N EOSINOPHILS; Normal (test code = 46750-2) 2.2 % N BASOPHILS; Normal (test code = 40662-2) 0.6 % N COMMENT(S) (test code = COMMENT(S)) See Comment Anisocytosis 1 +Evaluate results with caution. The white blood cell count and plate-let count may be altered due to interferences caused by the presenceof significant numbers of large/giant platelets. The smear was manually reviewed and the instrumentdifferential results have been confirmed.The instrument differential has been reported. MPV (test code = 23208-0) TNP TE ST(S) NOT PERFORMED: MPV * Test not performed. * Result not calculated because one or morerequired values exceed analytical limits. [facility] [id number] 10:55:00* Test Item Value Reference Range Interpretation Comments FERRITIN (test code = FERRITIN) 35 ng/ml 20-380 N [facility]] FOLATE, [id number] 10:55:00* Test Item Value Reference Range Interpretation Comments FOLATE, SERUM (test code = FOLATE, SERUM) 12.6 ng/ml N Reference Range Low: <3.4 Borderline: 3.4-5.4 Normal: >5.4 [facility]
--- OUTSIDE RECORDS SUMMARY | 2019-11-12 01:04 | XMS REPORT | Continuity of Care Document ---
Author Author [employer] Address Unknown Phone Unavailable Care Team Providers Care Sr. Payroll Manager Name Role Phone [email or web address] Unavailable Un available Problems Problem Status Onset Date Classification Date Reported Comments Source Hypertension Active 09/30/2013 [facility] Fatigue Active 09/30/2013 [facility] Male Erectile Disorder Active 09/30/2013 [facility] Metabolic Tests Nonspecific Elevation Of Transaminase Levels Active 09/30/2013 [facility] Abnormal Electrocardiogram Act chris 09/30/2013 [facility] Contusion With Intact Skin Surface Active 07/29/2013 [facility] Acute Upper Respiratory Infection Active 07/29/2013 [facility] Skin: A Rash Active 09/30/2013 [facility] Medications Medication Details Route Status Patient Instructions Ordering Provider Order Date Source Calcipotriene 0.005 % External Cream ; Start Date: 09/16/2013; End Date: (Active) Active 09/16/2013 [facility] Azithromycin 250 MG Oral Tablet ; Start Date: 07/24/2013; End Date: 07/29/2013 (Active) Active 07/24/2013 [facility] PredniSONE 10 MG Oral Tablet ; Start Date: 07/24/2013; End Date: (Active) Active 07/24/2013 [facility] AmLODIPine Besylate 10 MG Oral Tablet ; Start Date: 04/27/2013; End Date: (Active) Active 04/27/2013 [facility] Losartan Potassium-HCTZ 100-12.5 MG Oral Tablet ; Start Date: 04/16/2013; End Date: (Active) Active 04/16/2013 [facility] Losartan Potassium-HCTZ 100-25 MG Oral Tablet ; Start Date: 04/16/2013; End Date: (Active) Active 04/16/2013 [facility] AmLODIPine Besylate 5 MG Oral Tablet ; Start Date: 04/13/2013; End Date: (Active) Active 04/13/2013 [facility] Metoprolol Succinate ER 100 MG Oral Tabl et Extended Release 24 Hour ; Start Date: ; End Date: 06/1899 (Active) Inactive [facility] Metoprolol Succinate ER 100 MG Oral Tabl et Extended Release 24 Hour ; Start Date: ; End Date: 06/1899 (Active) Inactive [facility] Losartan Potassium-HCTZ 100-12.5 MG Oral Tablet (Active) Active [facility] Norvasc 5 MG Oral Tablet (Act chris) Active [facility] Aspirin 81 MG Oral Tablet (Ac tive) Active [facility] Metoprolol Succinate ER 100 MG Oral Tabl et Extended Release 24 Hour (Active) A ctive [facility] Allergies, Adverse Reactions, Alerts No Known Medication Allergies Immunizations Immunization Date Given Site Status Last Updated Comments Source Fluzone Intramuscular Injectable 04/20/2013 completed [facility] Influenza 05/31/2011 completed [facility] Tdap 09/03/2010 completed [facility] Results No Data Provided for This [...] ADM Date DC Date Status Source AUDIT [id number] 04/15/2013 04/15/2013 [facility] SUSIE Provi ayanna: INDIGO FRIEDMAN, Status: Pen, Time: 9:45 AM [id number] 04/16/20 13 04/15/2013 [facility] AUDIT [id number] 04/16/2013 04/17/2013 [facility] AUDIT [id number] 04/18/2013 04/18/2013 [facility] AUDIT [id number] 04/20/2013 04/20/2013 [facility] JOEL, Provi ayanna: DANIEL AMIN, Status: Pen, Time: 2:00 PM [id number] 04/27/20 13 04/20/2013 [facility] SANGITA Provi ayanna: DARLYN SMART, Status: Pen, Time: 3:00 PM [id number] 04/27/20 13 04/20/2013 [facility] AUDIT [id number] 05/02/2013 05/02/2013 [facility] AUDIT [id number] 05/12/2013 05/12/2013 [facility] AST, Provi ayanna: SE,NUCLEAR, Status: Pen, Time: 8:15 AM [id number] 05/13/20 13 05/12/2013 [facility] AUDIT [id number] 05/13/2013 05/13/2013 [facility] EST, Provi ayanna: DARLYN SMART, Status: Pen, Time: 9:00 AM [id number] 05/19/20 13 05/02/2013 [facility] AUDIT [id number] 05/24/2013 05/24/2013 [facility] AUDIT [id number] 06/21/2013 06/21/2013 [facility] AUDIT [id number] 07/24/2013 07/24/2013 [facility] AUDIT [id number] 07/29/2013 07/29/2013 [facility] EST, Provi ayanna: DARLYN SMART, Status: Pen, Time: 8:30 AM [id number] 08/26/19 14 07/29/2013 [facility] AUDIT [id number] 09/16/2013 09/16/2013 [facility] AUDIT [id number] 09/21/2013 09/21/2013 [facility] FUP, Provi ayanna: FRANCISCO RICO, Status: Pen, Time: 8:30 AM [id number] 09/30/2013 09/21/2013 [facility] AUDIT [id number] 09/30/2013 09/30/2013 [facility] EST, Provi ayanna: DARLYN SMART, Status: Pen, Time: 9:00 AM [id number] 10/27/19 14 09/30/2013 [facility] Procedures No Data Provided for This Section Assessment and Plan No Data Provided for This Section Plan of Care Plan of Care Date Source [QLH] TESTOSTERONE, FREE AND TOTAL, LC/M S/MS 04/16/2013 Routine[QLH] PSA, TOTAL 04/16/2013 Routine 09/30/2013 [facility] [QLH] TESTOSTERONE, FREE AND TOTAL, LC/M S/MS 04/16/2013 Routine[QLH] PSA, TOTAL 04/16/2013 RoutineUS Abdomen complete [id number] 09/16/2013 Routine 09/21/2013 [facility] [QLH] CBC (INCLUDES DIFF/PLT) 04/16/2013 Routine[QLH] [...] 04/16/2013 Routine[QLH] PSA, TOTAL 04/16/2013 Routine 07/29/2013 [facility] [QLH] CBC (INCLUDES DIFF/PLT) 04/16/2013 Routine[QLH] [...] up/Limited 04/16/2013 RoutineCardiology Referral 04/16/2013 Routine 04/18/2013 [facility] [QLH] CBC (INCLUDES DIFF/PLT) 04/16/2013 Routine[QLH] CMP W/EGFR 04/16/2013 Routine[Q] LIPID PANEL WITH REFLEX TO DIRECT LDL 04/16/2013 Routine[QLH] TSH, 3RD GENERATION W/REFLEX TO FT4 04/16/2013 Routine[QLH] TESTOSTERONE, FREE AND TOTAL, LC/MS/MS 04/16/2013 Routine[QLH] PSA, TOTAL 04/16/2013 Routine[N] Echo Follow up/Limited 04/16/2013 RoutineCardiology Referral 04/16/2013 Routine 04/17/2013 [facility] Social History Social History Date Source Marital History - Currently (Active) Tobacco Non-user (Active) No History of Alcohol Use (Denied) Never A Smoker (Active) Occupation: Retired (Active) 09/30/2013 [facility] Family History Value Date S ource Fraternal history of Diabetes Mellitus ( V18.0); (Active) Paternal history of Leukemia (V16.6); (Active) Family history of Colon Cancer (V16.0); (Active) Family history of Hypertension (V17.49); (Active) Family history of Coronary Artery Disease (V17.49); (Active) 09/30/2013 [facility] Fraternal history of Diabetes Mellitus ( V18.0); (Active) Paternal history of Leukemia (V16.6); (Active) Family history of Colon Cancer (V16.0); (Active) Family history of Hypertension (V17.49); (Active) Family history of Coronary Artery Disease (V17.49); (Active) 09/21/2013 [facility] Fraternal history of Diabetes Mellitus ( V18.0); (Active) Paternal history of Leukemia (V16.6); (Active) Family history of Colon Cancer (V16.0); (Active) Family history of Hypertension (V17.49); (Active) Family history of Coronary Artery Disease (V17.49); (Active) 09/16/2013 [facility] Fraternal history of Diabetes Mellitus ( V18.0); (Active) Paternal history of Leukemia (V16.6); (Active) Family history of Colon Cancer (V16.0); (Active) Family history of Hypertension (V17.49); (Active) Family history of Coronary Artery Disease (V17.49); (Active) 07/29/2013 [facility] Fraternal history of Diabetes Mellitus ( V18.0); (Active) Paternal history of Leukemia (V16.6); (Active) Family history of Colon Cancer (V16.0); (Active) Family history of Hypertension (V17.49); (Active) Family history of Coronary Artery Disease (V17.49); (Active) 07/24/2013 [facility] Fraternal history of Diabetes Mellitus ( V18.0); (Active) Paternal history of Leukemia (V16.6); (Active) Family history of Colon Cancer (V16.0); (Active) Family history of Hypertension (V17.49); (Active) Family history of Coronary Artery Disease (V17.49); (Active) 06/21/2013 [facility] Fraternal history of Diabetes Mellitus ( V18.0); (Active) Paternal history of Leukemia (V16.6); (Active) Family history of Colon Cancer (V16.0); (Active) Family history of Hypertension (V17.49); (Active) Family history of Coronary Artery Disease (V17.49); (Active) 05/24/2013 [facility] Fraternal history of Diabetes Mellitus ( V18.0); (Active) Paternal history of Leukemia (V16.6); (Active) Family history of Colon Cancer (V16.0); (Active) Family history of Hypertension (V17.49); (Active) Family history of Coronary Artery Disease (V17.49); (Active) 05/13/2013 [facility] Fraternal history of Diabetes Mellitus ( V18.0); (Active) Paternal history of Leukemia (V16.6); (Active) Family history of Colon Cancer (V16.0); (Active) Family history of Hypertension (V17.49); (Active) Family history of Coronary Artery Disease (V17.49); (Active) 05/12/2013 [facility] Fraternal history of Diabetes Mellitus ( V18.0); (Active) Paternal history of Leukemia (V16.6); (Active) Family history of Colon Cancer (V16.0); (Active) Family history of Hypertension (V17.49); (Active) Family history of Coronary Artery Disease (V17.49); (Active) 05/02/2013 [facility] Fraternal history of Diabetes Mellitus ( V18.0); (Active) Paternal history of Leukemia (V16.6); (Active) Family history of Colon Cancer (V16.0); (Active) Family history of Hypertension (V17.49); (Active) Family history of Coronary Artery Disease (V17.49); (Active) 04/20/2013 [facility] Fraternal history of Diabetes Mellitus ( V18.0); (Active) Paternal history of Leukemia (V16.6); (Active) Family history of Colon Cancer (V16.0); (Active) Family history of Hypertension (V17.49); (Active) Family history of Coronary Artery Disease (V17.49); (Active) 04/18/2013 [facility] Fraternal history of Diabetes Mellitus ( V18.0); (Active) Paternal history of Leukemia (V16.6); (Active) Family history of Colon Cancer (V16.0); (Active) Family history of Hypertension (V17.49); (Active) Family history of Coronary Artery Disease (V17.49); (Active) 04/17/2013 [facility] Fraternal history of Diabetes Mellitus ( V18.0); (Active) Paternal history of Leukemia (V16.6); (Active) Family history of Colon Cancer (V16.0); (Active) Family history of Hypertension (V17.49); (Active) Family history of Coronary Artery Disease (V17.49); (Active) 04/15/2013 [facility] Advance Directives Order Name Results Value Date Source Advance Directives Advance Dir ectives No Advance Directives available. 09/30/2013 [facility] Advance Directives Advance Dir ectives No Advance Directives available. 09/21/2013 [facility] Advance Directives Advance Dir ectives No Advance Directives available. 09/16/2013 [facility] Advance Directives Advance Dir ectives No Advance Directives available. 07/29/2013 [facility] Advance Directives Advance Dir ectives No Advance Directives available. 07/24/2013 [facility] Advance Directives Advance Dir ectives No Advance Directives available. 06/21/2013 [facility] Advance Directives Advance Dir ectives No Advance Directives available. 05/24/2013 [facility] Advance Directives Advance Dir ectives No Advance Directives available. 05/13/2013 [facility] Advance Directives Advance Dir ectives No Advance Directives available. 05/12/2013 [facility] Advance Directives Advance Dir ectives No Advance Directives available. 05/02/2013 [facility] Advance Directives Advance Dir ectives No Advance Directives available. 04/20/2013 [facility] Advance Directives Advance Dir ectives No Advance Directives available. 04/18/2013 [facility] Advance Directives Advance Dir ectives No Advance Directives available. 04/17/2013 [facility] Advance Directives Advance Dir ectives No Advance Directives available. 04/15/2013 [facility] Functional Status No Data Provided for This Section
[2019-11-12] MEDS: METRONIDAZOLE 500MG/NS 100ML 100 ML IV SCH ×4 (01:22→18:47)
[2019-11-12 03:15] LABS: PLATELET COUNT 136 x10e3/uL (140-360)
[2019-11-12] MEDS: CEFEPIME 2 GM/NS 0.9% 100 ML 100 ML IV SCH ×3 (06:15→22:23)
[2019-11-12] MEDS ORDERED: DEXTROSE 50% SYRINGE 50 ML IV PRN (07:30)
--- NOTE | 2019-11-12 07:30 | NUR ---
Unable to verify home medications at this time, patient unfamiliar of what medications he takes however he states that his will be back at 1200 with his home medications.
--- NOTE | 2019-11-12 07:41 | NUR ---
checked patients blood sugar, blood glucose result 151
[2019-11-12] MEDS: INSULIN REGULAR, HUMAN 100 UNIT/1 ML 3ML VIAL SQ SCH ×4 (08:05→20:51)
[2019-11-12] MEDS ORDERED: CHOLESTYRAMINE 4 GM PACKET PO PRN (09:30)
[2019-11-12] MEDS ORDERED: KCL 40MEQ/0.9% SOD CHL 1,000 ML IV SCH (10:00)
--- NOTE | 2019-11-12 11:38 | NUR ---
blood sugar checked and result is 113.
[2019-11-12] MEDS ORDERED: HYDROCHLOROTHIA25 MG PO (13:25)
[2019-11-12] MEDS ORDERED: FERROUS SULFAT325 MG PO (13:25)
[2019-11-12] MEDS ORDERED: ATORVASTATIN CA20 MG PO (13:25)
[2019-11-12] MEDS ORDERED: LOSARTAN-HCTZ1 EAC2 PO (13:25)
[2019-11-12] MEDS ORDERED: CLOPIDOGREL75 MG PO (13:25)
[2019-11-12] MEDS ORDERED: METFORMIN HCL500 MG PO (13:25)
[2019-11-12] MEDS ORDERED: ASPIR 8181 MG PO (13:25)
[2019-11-12] MEDS ORDERED: AMLODIPINE BESY10 MG PO (13:25)
--- NOTE | 2019-11-12 13:26 | NUR ---
Home medications verified.
--- NOTE | 2019-11-12 14:49 | NUR ---
Called Dr. Mejia in regards to patient's home medications, patient wants to know which home medications he can continue. Per Dr. Mejia patient is to discontinue all medications except for Aspirin and Clopidigrel.
--- NOTE | 2019-11-12 16:18 | NUR ---
blood glucose checked on glucometer result 154.
--- NOTE | 2019-11-12 16:59 | History and Physical ---
PRIMARY CARE PHYSICIAN: Dr. Eleazar Lira. CHIEF COMPLAINT: Profound diarrhea for the past few days that started approximately 1 month ago. HISTORY OF PRESENT ILLNESS: The patient is a 74-year-old male, who complained that he had started diarrhea a month ago, but worsening for the past week or so. The patient came to the hospital for evaluation. He also has fever, chills and black stool. The patient's home medication is not available yet for review. The patient stated that he does have coronary artery disease with four stents. Stent was recent past. PAST MEDICAL HISTORY: Coronary artery disease with multiple stent, total x4. The patient is a poor historian. Stent was placed in the recent past last year. Cholecystectomy. Abdominal hernia repair. Glaucoma. Cataracts. Aortic valve replacement. The patient stated that he is on blood thinner, but we do not have his home medication as yet. He had a defibrillator placed, but then that was removed because of the infection. SOCIAL HISTORY: The patient does not smoke or use alcohol. No illicit drugs. ALLERGIES: TO CODEINE, FENTANYL, MORPHINE AND OXYCODONE. HOME MEDICATIONS: Pending for reconciliation. PHYSICAL EXAMINATION: VITAL SIGNS: Temperature is 102.6, blood pressure 153/79, pulse rate 108, respirations 22. GENERAL: The patient is not in acute distress. He is awake. HEENT: Normocephalic and atraumatic. Anicteric. NECK: Supple grossly. PULMONARY: Diminished breath sounds. CARDIOVASCULAR: Regular rate and rhythm. S1 and S2. Tachycardia. ABDOMEN: Soft and non-distention. EXTREMITIES: No cyanosis or edema NEUROLOGIC: No focal deficit. LABORATORY DATA: Sodium is 136, potassium 3.2, chloride 101, bicarb 21, BUN 18, creatinine 1.0, glucose 149. WBC is 10, hemoglobin 12.5, hematocrit 38.8, and platelets is 136. Abdominal and pelvis CT scan shown that he had no acute inflammatory process. Hepatic steatosis. Enlarged prostate with urinary bladder thickening. IMPRESSION: 1. Acute gastroenteritis associated with fever, leukocytosis and black stool with dehydration. 2. Multiple chronic baseline problems including coronary artery disease with previous stents and also anticoagulant therapy per patient for aortic valve replacement. PLAN: 1. Home medication reconciliation and review once RN is able to obtain. 2. Continue with current medications and antibiotics. Consultation with Dr. John Fox. Repeat lab work. IV fluids with potassium replacement. We will monitor the patient closely. MD MOHAMUD Barton/[facility] /[id number]
--- NOTE | 2019-11-12 18:30 | NUR ---
PATIENT RECEIVED FROM ER PER STRETCHER. ALERT AND VERBALLY RESPONSIVE, TRANSFER SELF TO BED. TELEMETRY BOX [address] BED IN LOWER POSITION, CALL LIGHT AT REACH.
--- NOTE | 2019-11-12 19:15 | NUR ---
Completed bedside nursing shift report with morning nurse. Pt alert and oriented to name, lying in bed HOB 30 degrees. Denies pain at this time. Call light within reach. Bed low and locked. Will continue to monitor.
[2019-11-12 20:00] VITALS: BP 136/80
[2019-11-12 20:16] VITALS: BP 136/80
[2019-11-12 20:34] VITALS: BP 136/80
[2019-11-12 22:29] VITALS: BP 136/80
[2019-11-13] VITALS (8 sets, daily range): BP systolic 132–154; BP diastolic 79–90
[2019-11-13] MEDS: METRONIDAZOLE 500MG/NS 100ML 100 ML IV SCH ×2 (00:20→05:30)
--- NOTE | 2019-11-13 02:31 | Consultation ---
DATE OF CONSULTATION: 11/12/2019 GI Consult Note REASON FOR CONSULT: Chronic diarrhea. HISTORY OF PRESENTING ILLNESS: A 74-year-old, who is very poor historian. He has host of comorbidities especially coronary artery disease, status post PCI with multiple stent. Per the patient, he has had a cardiac catheterization 2 months ago, somewhere in [facility], and has had multiple stents placed. He also tells me that he has had aortic valve replaced. When I asked him whether it is a mechanical or bioprosthetic valve, the patient stated that he has both of them. The patient stated that he is on some blood thinner. When I reviewed his medication list, he is only on clopidogrel. There is no anticoagulant. However, the patient has been experiencing change in bowel habit for last 2 months, alternating between diarrhea and constipation. For last 4 days, he has been having profuse watery diarrhea, sometime he has noticed that his stool is quite dark green in color. He has some off and on associated lower abdominal cramping. Denies any antibiotic exposure in last 2 months. He has not started any supplements. No new medication has been added into his medical regimen. He stated that he has a history of GI bleed last year. He has had upper endoscopy as well as colonoscopy in [facility] in [facility]. The patient is not able to recall the finding on endoscopy. Denies any associated nausea or vomiting. Reports no extraintestinal complaints at this time. PAST MEDICAL HISTORY: CAD, glaucoma, aortic stenosis, history of GI bleed. PAST SURGICAL HISTORY: Status post AICD, aortic valve replacement, cataract extraction, abdominal hernia repair, cholecystectomy. FAMILY HISTORY: Noncontributory. Negative for any GI or GUYLINE OPERATOR malignancies. SOCIAL HISTORY: No smoking, alcohol, or any illicit drug use. ALLERGIES: CODEINE, FENTANYL, MORPHINE, AND OXYCODONE. HOME MEDICATIONS: 1. Amlodipine 10 mg daily. 2. Aspirin 81 mg daily. 3. Atorvastatin 20 mg daily. 4. Clopidogrel 75 mg daily. 5. Ferrous sulfate 325 mg daily. 6. Hydrochlorothiazide 25 mg daily. 7. Losartan/hydrochlorothiazide 100/12.5 mg daily. 8. Metformin 500 mg two tablets twice daily. Inpatient medications: 1. Cefepime 2 g IV q.8 hours. 2. Cholestyramine 4 g daily. 3. Insulin regular as per sliding scale. 4. Metronidazole 500 mg IV q.6 hours daily. 5. Zofran 4 mg IV q.4 hours daily. PHYSICAL EXAMINATION: VITAL SIGNS: Temperature 98.3, pulse 99, respirations 18, blood pressure 147/81, oxygen saturation 97% on room air. GENERAL: Not in any apparent distress. HEENT: Oral mucosa is moist. Anicteric sclerae. CVS: S1, S2. Regular. LUNGS: Bilaterally grossly clear. ABDOMEN: Soft. Mild lower quadrant tenderness on deep palpation without rebound, rigidity, or guarding. Positive bowel sounds, bowel sounds are not hyperactive. EXTREMITIES: Warm. Trace leg edema. LABORATORY DATA: WBC 10.33, hemoglobin 12.5, hematocrit 38.8, MCV 87.4, and platelet count 136. Sodium 136, potassium 3.2, chloride 101, bicarb 21, BUN 18, creatinine 1.01, and glucose 149. Liver enzymes showed a total bilirubin 1.8, AST 22, ALT 28, alkaline phosphatase 55, albumin 3.8. CT of the abdomen and pelvis without contrast showed: 1. No definite evidence of acute inflammatory process in the abdomen and pelvis considering limitation of unenhanced study. 2. Hepatic steatosis. 3. Enlarged prostate with bladder wall thickening, which is probably due to chronic outflow obstruction. IMPRESSION AND PLAN: Change in bowel habit, alternating with diarrhea and constipation. I do not suspect that the patient has infectious diarrhea. Stool is off and on dark color is due to oral iron supplementation. From GI standpoint, I recommend to discontinue antibiotic. Do a proper stool study that should include stool for C difficile, which has already been sent. I will add stool culture as well as stool WBC. In the interim, just provide supportive care. We will try to obtain upper endoscopy and colonoscopy report from [facility] in [facility]. Supportive care. Once his stool studies has been negative, we will continue to monitor him clinically. I thank, Dr. Mejia, for allowing me to participate in the care of this patient. Tim Mao MD [facility] /[id number]
[2019-11-13] MEDS: CEFEPIME 2 GM/NS 0.9% 100 ML 100 ML IV SCH (06:00)
[2019-11-13 07:10] LABS: BASOPHILS % 0.5 % (0.0-1.0); EOSINOPHILS # (AUTO) 0.2 (0.0-0.4); EOSINOPHILS % 5.7 % (0.0-6.0); HEMATOCRIT 34.8 % (38.2-49.6); HEMOGLOBIN 10.8 g/dL (14.0-18.0); LYMPHOCYTES # (AUTO) 0.6 (1.0-3.2); LYMPHOCYTES % 15.5 % (18.0-39.1); MEAN CORPUSCULAR HEMOGLOBIN 27.3 pg (28-32); MEAN CORPUSCULAR VOLUME 88.1 fL (81-99); MONOCYTES # (AUTO) 0.5 (0.2-0.8); MONOCYTES % 13.1 % (4.4-11.3); NEUTROPHILS # (AUTO) 2.6 (2.1-6.9); PLATELET COUNT 127 x10e3/uL (140-360); RED BLOOD COUNT 3.95 x10e6/uL (4.3-5.7); RED CELL DISTRIBUTION WIDTH 14.6 % (11.7-14.4)
--- NOTE | 2019-11-13 07:25 | NUR ---
PATIENT SITTING UP IN BED TALKING ON THE PHONE, NO DISTRESS NOTED. BED IN LOWER POSITION, CALL LIGHT AT REACH.
[2019-11-13] MEDS: INSULIN REGULAR, HUMAN 100 UNIT/1 ML 3ML VIAL SQ SCH ×4 (07:30→21:05)
[2019-11-13 07:45] LABS: ALANINE AMINOTRANSFERASE 27 IU/L (0-55); ALBUMIN 3.2 g/dL (3.5-5.0); ALKALINE PHOSPHATASE 48 IU/L (40-150); ANION GAP 11.4 mmol/L (8-16); BLOOD UREA NITROGEN 11 mg/dL (7-26); BUN/CREATININE RATIO 14 (6-25); CALCIUM 8.9 mg/dL (8.4-10.2); CARBON DIOXIDE 24 mmol/L (22-29); CHLORIDE 109 mmol/L (98-107); EST GLOMERULAR FILTRATION RATE > 60 ML/MIN (60-); GLUCOSE 117 mg/dL (74-118); POTASSIUM 3.4 mmol/L (3.5-5.1); SODIUM 141 mmol/L (136-145)
[2019-11-13 08:11] LABS: MAGNESIUM 1.9 MG/DL (1.3-2.1); PHOSPHORUS 2.4 MG/DL (2.3-4.7)
[2019-11-13] MEDS ORDERED: POTASSIUM PHOSPHATE 20 MM in SODIUM CHLORIDE 0.9% 250ML 250 ML IV ONE (10:15)
[2019-11-13] MEDS ORDERED: POTASSIUM CHLORIDE 10MEQ EA PO NR ×2 (10:15→19:00)
[2019-11-13] MEDS ORDERED: TAMSULOSIN HCL 0.4 MG CAP PO NR (10:30)
[2019-11-13] MEDS: AZTREONAM 1 GM/NS 50 ML 50 ML IV SCH ×2 (11:24→23:06)
[2019-11-13] MEDS: VANCOMYCIN 250MG/5ML ORAL SOLN PO SCH ×3 (11:24→21:10)
--- NOTE | 2019-11-13 12:05 | NUR ---
MD IN TO SEE PATIENT, NEW ORDER RECEIVED.
--- NOTE | 2019-11-13 16:00 | NUR ---
PATIENT AMBULATED TO THE RESTROOM AND BACK TO BED. CALL LIGHT AT REACH
[2019-11-13] MEDS: KCL 40MEQ/0.9% SOD CHL 1,000 ML IV SCH (18:47)
--- NOTE | 2019-11-13 18:51 | NUR ---
STOOL SPECIMEN COLLECTED AND SENT TO THE LAB.
[2019-11-13] MEDS: ATORVASTATIN 20 MG TAB PO SCH (20:48)
[2019-11-13] MEDS: TAMSULOSIN HCL 0.4 MG CAP PO SCH (20:48)
[2019-11-14] VITALS (11 sets, daily range): BP systolic 142–160; BP diastolic 73–84
[2019-11-14] MEDS: VANCOMYCIN 250MG/5ML ORAL SOLN PO SCH ×3 (05:39→22:00)
--- NOTE | 2019-11-14 07:21 | NUR ---
PATIENT AMBULATING IN ROOM, NO COMPLAIN VOICED. IV FLUID INFUSING ORDERED. CALL LIGHT AT REACH.
[2019-11-14] MEDS: INSULIN REGULAR, HUMAN 100 UNIT/1 ML 3ML VIAL SQ SCH ×4 (07:30→21:25)
[2019-11-14] MEDS: AMLODIPINE BESYLATE 10 MG TAB PO SCH (09:25)
[2019-11-14] MEDS: CLOPIDOGREL BISULFATE 75 MG TAB PO SCH (09:26)
[2019-11-14] MEDS: AZTREONAM 1 GM/NS 50 ML 50 ML IV SCH ×2 (10:45→22:45)
--- NOTE | 2019-11-14 11:17 | NUR ---
PATIENT ASSISTED WITH SHOWER, LINENS CHANGED. BACK IN BED WITH CALL LIGHT AT REACH.
[2019-11-14] MEDS: KCL 40MEQ/0.9% SOD CHL 1,000 ML IV SCH ×2 (13:19→21:10)
--- NOTE | 2019-11-14 16:00 | NUR ---
PATIENT OUT OF BED TO CHAIR TALKING TO FAMILY MEMBER VISITING. CALL LIGHT AT REACH.
--- NOTE | 2019-11-14 18:53 | NUR ---
BEDSIDE SHIFT REPORT GIVEN TO ON COMING NURSE. PATIENT OUT OF BED TO CHAIR, CALL LIGHT AT REACH.
[2019-11-14] MEDS: TAMSULOSIN HCL 0.4 MG CAP PO SCH (21:31)
[2019-11-14] MEDS: ATORVASTATIN 20 MG TAB PO SCH (21:33)
[2019-11-15] VITALS (9 sets, daily range): BP systolic 147–158; BP diastolic 74–87
[2019-11-15] MEDS: VANCOMYCIN 250MG/5ML ORAL SOLN PO SCH ×3 (05:09→22:00)
[2019-11-15 06:35] LABS: BASOPHILS % 0.5 % (0.0-1.0); EOSINOPHILS # (AUTO) 0.3 (0.0-0.4); EOSINOPHILS % 6.2 % (0.0-6.0); HEMATOCRIT 36.5 % (38.2-49.6); HEMOGLOBIN 11.3 g/dL (14.0-18.0); LYMPHOCYTES % 25.1 % (18.0-39.1); MEAN CORPUSCULAR HEMOGLOBIN 27.8 pg (28-32); MEAN CORPUSCULAR VOLUME 89.7 fL (81-99); MONOCYTES # (AUTO) 0.4 (0.2-0.8); MONOCYTES % 10.2 % (4.4-11.3); NEUTROPHILS # (AUTO) 2.3 (2.1-6.9); NEUTROPHILS % 55.8 % (38.7-80.0); PLATELET COUNT 148 x10e3/uL (140-360); RED BLOOD COUNT 4.07 x10e6/uL (4.3-5.7); RED CELL DISTRIBUTION WIDTH 14.1 % (11.7-14.4)
[2019-11-15 06:56] LABS: ANION GAP 13.1 mmol/L (8-16); BLOOD UREA NITROGEN < 5 mg/dL (7-26); CALCIUM 9.3 mg/dL (8.4-10.2); CARBON DIOXIDE 26 mmol/L (22-29); CHLORIDE 110 mmol/L (98-107); CREATININE, SERUM 0.76 mg/dL (0.72-1.25); EST GLOMERULAR FILTRATION RATE > 60 ML/MIN (60-); GLUCOSE 109 mg/dL (74-118); POTASSIUM 4.1 mmol/L (3.5-5.1); SODIUM 145 mmol/L (136-145)
[2019-11-15 07:00] LABS: BUN/CREATININE RATIO 7 (6-25)
--- NOTE | 2019-11-15 07:00 | NUR ---
received bedside report. pt is alert sitting up in recliner, no s/s of distress. call light within reach and instructed pt to call RN for help
[2019-11-15] MEDS: INSULIN REGULAR, HUMAN 100 UNIT/1 ML 3ML VIAL SQ SCH ×4 (07:30→21:00)
[2019-11-15] MEDS: KCL 40MEQ/0.9% SOD CHL 1,000 ML IV SCH (07:30)
[2019-11-15] MEDS: CLOPIDOGREL BISULFATE 75 MG TAB PO SCH (08:55)
[2019-11-15] MEDS: AMLODIPINE BESYLATE 10 MG TAB PO SCH (08:55)
[2019-11-15] MEDS: AZTREONAM 1 GM/NS 50 ML 50 ML IV SCH ×2 (08:57→22:00)
[2019-11-15] MEDS ORDERED: LOSARTAN POTASSIUM 100 MG TAB PO ONE (09:30)
[2019-11-15] MEDS: ATORVASTATIN 20 MG TAB PO SCH (21:00)
[2019-11-15] MEDS: TAMSULOSIN HCL 0.4 MG CAP PO SCH (21:00)
--- NOTE | 2019-11-16 00:06 | Progress Note ---
DATE: 11/15/2019 GI Progress Report SUBJECTIVE: The patient reports significant improvement in diarrheal frequency. He has had only 2-3 BMs. His stool has started forming. Denies any abdominal pain. REVIEW OF SYSTEMS: GENERAL: No fever or chills. CVS: No chest pain or palpitations. RESPIRATORY: No cough or expectoration. MEDICATIONS: 1. Regular insulin as per sliding scale. 2. Vancomycin 250 mg p.o. q.8 hours. 3. Aztreonam 1 g q.12 hours. 4. Clopidogrel 75 mg p.o. daily. 5. Amlodipine 10 mg p.o. daily. 6. Atorvastatin 80 mg p.o. at bedtime. 7. Tamsulosin 0.4 mg p.o. at bedtime. 8. Cholestyramine 4 g q.6 hours as needed. 9. Acetaminophen 650 mg p.o. q.4 hours as needed. 10. Losartan 100 mg p.o. daily. 11. Zofran 4 mg IV q.4 hours. PHYSICAL EXAMINATION: VITAL SIGNS: Temperature 98, pulse 61, respirations 18, blood pressure 148/84, oxygen saturation 100% on room air. GENERAL: Not in any apparent distress. HEENT: Oral mucosa is moist. ABDOMEN: Soft, nondistended, nontender. No palpable mass or hernia. Bowel sounds not hyperactive. Normal. LABORATORY DATA: WBC 4.03, hemoglobin 11.3, hematocrit 36.5, and platelet count 148. Sodium 145, potassium 4.1, chloride 110, bicarb 26, BUN 5, and creatinine 0.76. Stool lactoferrin positive. Stool for C difficile toxin is negative. IMPRESSION AND PLAN: Change in bowel habit, diarrhea has resolved. The patient is empirically getting oral vancomycin. From GI standpoint, I recommend to discontinue oral vancomycin, as the patient's stool for Clostridium difficile is negative. He can be discharged from GI standpoint. I will follow him in my office in 1-week. I have given him my business card. Tim Mao MD [facility] /[id number]
[2019-11-16 05:30] VITALS: BP 165/84
[2019-11-16] MEDS: VANCOMYCIN 250MG/5ML ORAL SOLN PO SCH (05:59)
[2019-11-16 06:30] LABS: BASOPHILS % 0.6 % (0.0-1.0); EOSINOPHILS # (AUTO) 0.2 (0.0-0.4); EOSINOPHILS % 4.2 % (0.0-6.0); HEMATOCRIT 34.3 % (38.2-49.6); HEMOGLOBIN 11.2 g/dL (14.0-18.0); LYMPHOCYTES # (AUTO) 1.3 (1.0-3.2); MEAN CORPUSCULAR HEMOGLOBIN 29.2 pg (28-32); MEAN CORPUSCULAR HGB CONC 32.7 g/dL (31-35); MEAN CORPUSCULAR VOLUME 89.3 fL (81-99); MONOCYTES # (AUTO) 0.5 (0.2-0.8); MONOCYTES % 9.8 % (4.4-11.3); NEUTROPHILS # (AUTO) 2.9 (2.1-6.9); NEUTROPHILS % 58.6 % (38.7-80.0); PLATELET COUNT 144 x10e3/uL (140-360); RED BLOOD COUNT 3.84 x10e6/uL (4.3-5.7); RED CELL DISTRIBUTION WIDTH 14.1 % (11.7-14.4)
[2019-11-16 06:58] LABS: ANION GAP 12.8 mmol/L (8-16); BLOOD UREA NITROGEN 7 mg/dL (7-26); BUN/CREATININE RATIO 9 (6-25); CALCIUM 8.8 mg/dL (8.4-10.2); CARBON DIOXIDE 26 mmol/L (22-29); CHLORIDE 107 mmol/L (98-107); CREATININE, SERUM 0.78 mg/dL (0.72-1.25); EST GLOMERULAR FILTRATION RATE > 60 ML/MIN (60-); GLUCOSE 123 mg/dL (74-118); POTASSIUM 3.8 mmol/L (3.5-5.1); SODIUM 142 mmol/L (136-145)
[2019-11-16] MEDS: INSULIN REGULAR, HUMAN 100 UNIT/1 ML 3ML VIAL SQ SCH (07:30)
[2019-11-16 08:04] VITALS: BP 143/86
[2019-11-16 08:10] VITALS: BP 143/81
[2019-11-16] MEDS ORDERED: LOSARTAN POTASSIUM 100 MG TAB PO SCH (09:00)
[2019-11-16] MEDS: AMLODIPINE BESYLATE 10 MG TAB PO SCH (09:20)
[2019-11-16] MEDS: CLOPIDOGREL BISULFATE 75 MG TAB PO SCH (09:20)
[2019-11-16] MEDS: AZTREONAM 1 GM/NS 50 ML 50 ML IV SCH (09:21)
[2019-11-16] MEDS ORDERED: ONDANSETRON HCL 4 MG ORAL DISINTEGRATING TAB PO PRN (10:45)
--- NOTE | 2019-11-16 11:15 | NUR ---
Pt discharged home at this time. Pt is aox3, 0 s/s of acute distress noted at time of discharge. Pt verbalized understanding of all discharge instructions and follow up appointments.
--- NOTE | 2019-11-16 20:41 | Discharge Summary ---
FINAL DIAGNOSES: 1. Acute gastroenteritis associated with fever, dehydration, and acute kidney injury. 2. Urinary tract infection, resolved. 3. Stool analysis overall appears negative. SUMMARY: The patient is a 74-year-old male, who at baseline on losartan/HCTZ and also metformin, developed acute gastroenteritis. The patient became dehydrated and he was taking his medication, became even more dehydrated. The patient came in with nausea and vomiting. The patient did receive medication, he did better. Lab work of the patient on admission his potassium was 3.2. The patient's blood culture was negative. Urine culture final was no growth. The patient is stable. Potassium has been replaced. He is doing much better. No nausea or vomiting. No diarrhea. The patient is stable. He will go home today. Resume his home medication. Workup including imaging test, CT abdomen and pelvis without contrast showed no evidence of acute inflammatory process in the abdomen and pelvis. He does have hepatic steatosis. He does have enlarged prostate with urinary bladder wall thickening. The patient is stable, discharged home. Resume home medication. I would add on Flomax 0.4 mg in the evening. The patient is to follow up with his family physician for any adjustment of medication. MD MOHAMUD Barton/[facility] /[id number]
== END 2019-11-16 12:07 | disposition home or self-care (01) | DRG 392 ==
LOC: ER 20:56 → ERHOLD 11-12 00:58 → MED/SURG3 11-12 18:08
PROVIDERS: ADMIT Internal Medicine; ATTEND Internal Medicine
DX: K52.9 Noninfective gastroenteritis and colitis, unspecified (principal); N17.9 Acute kidney failure, unspecified; N39.0 Urinary tract infection, site not specified; N13.8 Other obstructive and reflux uropathy; E86.0 Dehydration; Z11.59 Encounter for screening for other viral diseases; N40.0 Benign prostatic hyperplasia without lower urinary tract symptoms; I25.10 Atherosclerotic heart disease of native coronary artery without angina pectoris; K76.0 Fatty (change of) liver, not elsewhere classified; N40.1 Benign prostatic hyperplasia with lower urinary tract symptoms; Z95.5 Presence of coronary angioplasty implant and graft; H40.9 Unspecified glaucoma
CPT/HCPCS: 36415; 71045; 74177; 80048; 80053; 81001; 82150; 82550; 82553; 82948; 83605; 83630; 83690; 83735; 84100; 84484; 85025; 85610; 85730; 87040; 87045; 87086; 87493; 87635; 93005; 96361; 99285; J1817; J7030; J7050; Q9967